=== PATIENT | female | born 1970 | race Caucasian/White ===

== ENCOUNTER 2019-08-06 14:30 | Emergency (ER) | payer MEDICAID, SELFPAY ==
[2019-08-06 14:41] VITALS: BP 110/73; PULSE 99; RESP 16; TEMP 37; O2SAT 93
--- NOTE | 2019-08-06 14:53 | ED.SKABFB ---
HPI - Skin/Abscess/Foreign Bdy General Chief complaint: Skin/Abscess/Foreign Body Stated complaint: Rash Time Seen by Provider: 08/06/19 14:54 Source: patient and RN notes reviewed Mode of arrival: ambulatory Limitations: no limitations History of Present Illness HPI narrative: 49-year-old female presents with concern for blisters on her left upper arm, and several red bumps on her left forearm.. She reports she noticed the blisters today, they are tender to touch. She reports she started taking Augmentin 3 days ago for sinus infection. Reports she is taking Augmentin in the past with no problems. She denies any oral lesions, any nausea, vomiting, diarrhea. MD complaint: rash Related Data Home Medications Medication Instructions Recorded Confirmed albuterol sulfate 1 inh INHALATION QID 08/06/19 08/06/19 amlodipine [Norvasc] 5 mg PO DAILY 08/06/19 08/06/19 budesonide-formoterol [Symbicort] 2 puff INHALATION Q12H 08/06/19 08/06/19 cetirizine [Zyrtec] 10 mg PO DAILY 08/06/19 08/06/19 montelukast [Singulair] 10 mg PO DAILY 08/06/19 08/06/19 tiotropium bromide [Spiriva 2 puff INHALATION DAILY 08/06/19 08/06/19 Respimat] umeclidinium [Incruse Ellipta] 1 inh INHALATION DAILY 08/06/19 08/06/19 Allergies Allergy/AdvReac Type Severity Reaction Status Date / Time METALS Allergy Unknown Rash Uncoded 08/06/19 14:47 Review of Systems Review of Systems: Narrative: CONSTITUTIONAL: Denies malaise, chills, sweats, or fever. EYES: Denies visual changes, redness, or discharge. ENT: Reports rhinorrhea, congestion. Denies sinus pain, otalgia or sore throat. Denies oral lesions CARDIOVASCULAR: Denies chest pain, palpitations, or edema. RESPIRATORY: Denies cough or dyspnea. GASTROINTESTINAL: Denies abdominal pain, nausea, vomiting, diarrhea SKIN: Reports itchy blisters on left upper arm, red bumps on left lower arm MUSCULOSKELETAL: Denies myalgia. NEUROLOGIC: Denies headache. All systems reviewed & are unremarkable except as noted in HPI and below PMFSH Past Medical History Medical History Asthma Fibromyalgia GERD (gastroesophageal reflux disease) Tendonitis Social History Social History Smoking status: Never smoker Gender identity (if verbalized by the patient): Female Comments At time of signature, agree with nursing past medical, surgical, social and family history. There is no relevant family history pertinent to the presenting complaint Exam Narrative: Exam Narrative: GENERAL: Well-appearing, well-nourished, and in no acute distress. HEAD: Normocephalic EYES: PERRLA, conjunctivae clear ENT: Nares clear, turbinates erythematous with clear discharge. Mucous membranes moist. TM pearly dial with dull light reflex bilaterally; no tragal tenderness. Oropharynx without erythema or lesions. Tonsils not enlarged and without exudate. NECK: Supple. No lymphadenopathy. CHEST: No respiratory distress. Clear to auscultation. No bony deformities, no asymmetry. Speaks in full sentences. HEART: Regular rate and rhythm. No murmur heard. N SKIN: Warm, dry, no rash. Patch of vesicles with clear fluid noted to left upper arm approximately 8-9 vesicles noted, each vesicle is surrounded by very small amount of erythema. No erythema, induration, plaque noted between vesicles. 4 erythematous papules noted to left lower arm. NEURO: Alert and oriented x3. PSYCH: Normal mood and affect Course Course Emergency Course: Patient is aware of diagnosis, understands and agrees to treatment plan. Anticipatory guidance given. Patient agrees to follow-up as directed and is aware of reasons to seek care at the emergency department. Portions of this record may have been created with voice recognition software Vital Signs Vital signs: Vital Signs Temperature 98.6 F 08/06/19 14:41 Pulse Rate 99 08/06/19 14:41 Respiratory Rate 16 0
== END 2019-08-06 15:10 | disposition home or self-care (01) ==
PROVIDERS: Emergency Provider Nurse Practitioner
DX: R21 Rash and other nonspecific skin eruption (principal)
CPT/HCPCS: 99213; G0463

== ENCOUNTER 2020-01-24 09:24 | Emergency (ER) | payer OTHER, SELFPAY ==
--- NOTE | 2020-01-24 09:28 | ED.URI ---
HPI - URI/Sore Throat General Chief Complaint: Upper Respiratory Infection Stated Complaint: ear/nose/throat Time Seen by Provider: 01/24/20 09:32 Source: patient and RN notes reviewed History of Present Illness HPI Narrative: Patient is a 50-year-old female who presents the urgent care with complaints of severe headache, sinus pressure, congestion, runny nose. Patient denies of any known fever, nausea, vomiting. States that she has had to use your inhaler more frequently but currently denies of any wheezing or shortness of breath. Denies of chest pain. Patient states that her symptoms have been ongoing for approximately 3 weeks with a few intermittent days of feeling slightly better after the use of Sudafed. Patient states that she does have a chronic sinusitis which typically clears up with [id number] medication. No other acute complaints. No acute distress noted. Patient read the plan of care. Related Data Home Medications Medication Instructions Recorded Confirmed albuterol sulfate 1 inh INHALATION QID 08/06/19 08/06/19 amlodipine [Norvasc] 5 mg PO DAILY 08/06/19 08/06/19 budesonide-formoterol [Symbicort] 2 puff INHALATION Q12H 08/06/19 08/06/19 cetirizine [Zyrtec] 10 mg PO DAILY 08/06/19 08/06/19 montelukast [Singulair] 10 mg PO DAILY 08/06/19 08/06/19 tiotropium bromide [Spiriva 2 puff INHALATION DAILY 08/06/19 08/06/19 Respimat] umeclidinium [Incruse Ellipta] 1 inh INHALATION DAILY 08/06/19 08/06/19 Allergies Allergy/AdvReac Type Severity Reaction Status Date / Time METALS Allergy Unknown Rash Uncoded 01/24/20 09:39 Review of Systems Review of Systems: Narrative: CONSTITUTIONAL: Denies fever, chills, or sweats. EYES: Denies visual changes, redness, or discharge. ENT: Reports of rhinorrhea, congestion, sinus pressure CARDIOVASCULAR: Denies chest pain, palpitations, or edema. RESPIRATORY: Denies cough or dyspnea. GASTROINTESTINAL: Denies abdominal pain, nausea, vomiting, or diarrhea. GENITOURINARY: Denies dysuria or hematuria. SKIN: Denies rash or itching. MUSCULOSKELETAL: Denies back pain, joint pain, or myalgia. NEUROLOGIC: Reports of headache All other systems reviewed are negative, except as documented in HPI. PMFSH Social History Social History Smoking status: Never smoker Gender identity (if verbalized by the patient): Female Comments At the time of my signature, I reviewed and agree with the nursing past medical, surgical, social, and family history. There is no relevant family history pertinent to the patient complaint. Exam Narrative: Exam Narrative: GENERAL: This is a well-nourished, well-developed patient, in no apparent distress. HEAD: normocephalic, atraumatic. Moderate frontal sinus pressure EYES: PERRL. Sclera clear/white. Vision is grossly intact. Mild bilateral injected conjunctivea EARS: External ears normal, auditory canals clear and without drainage, TMs normal without perforation. Hearing grossly intact. NOSE: External nose normal with no obvious nasal discharge, nares with mild erythema, clear rhinorrhea. THROAT: Mucous membranes moist, mild erythema noted to posterior oropharynx, moderate postnasal drainage NECK: Neck supple CARDIOVASCULAR: Regular rate and rhythm without murmurs, gallops, or rubs. RESPIRATORY: Clear to auscultation. Breath sounds equal bilaterally. No wheezes, rales, or rhonchi. SKIN: warm, intact with no suspicious lesions or rash, good texture and turgor. NEURO: awake, alert, and oriented to person, place and time. There were no obvious focal neurologic abnormalities. EXTREMITIES: No clubbing, cyanosis, or edema. Course Vital Signs Vital signs: Vital Signs Temperature 98.4 F 01/24/20 09:36 Pulse Rate 95 01/24/20 09:36 Respiratory Rate 18 01/24/20 09:36 Blood Pressure 119/75 01/24/20 09:36 Pulse Oximetry 92 01/24/20 09:36 Temperature 98.4 F 01/24/20 09:36 Pulse Rate 95 07
[2020-01-24 09:36] VITALS: BP 119/75; PULSE 95; RESP 18; TEMP 36.9; O2SAT 92
== END 2020-01-24 09:45 | disposition home or self-care (01) ==
PROVIDERS: Emergency Provider Nurse Practitioner Family
DX: J45.909 Unspecified asthma, uncomplicated (principal); J32.9 Chronic sinusitis, unspecified
CPT/HCPCS: 99213; G0463

== ENCOUNTER 2020-02-07 16:39 | Emergency (ER) | payer OTHER, SELFPAY ==
--- NOTE | ~2020-02-07 | XR_ITS ---
EXAMINATION: XR chest 2V EXAM DATE: 02/07/2020 17:51 INDICATION: Fever and shortness of breath. TECHNIQUE: Frontal and lateral projections of the chest obtained and reviewed. Comparison is made to prior examination from 07/03/2019. FINDINGS: The lungs are clear. There are no pleural effusions. The cardiomediastinal silhouette is within normal limits. There is no pneumothorax suspected. There are old bilateral rib fractures. IMPRESSION: No acute cardiopulmonary findings. Reviewed, dictated and finalized at location A.
[2020-02-07 17:05] VITALS: BP 134/83; PULSE 103; RESP 20; TEMP 37.9; O2SAT 93
--- NOTE | 2020-02-07 17:36 | ED.GENADULT ---
HPI - General Adult General Chief complaint: Urogenital-Female Stated complaint: yeast infection Time Seen by Provider: 02/07/20 17:36 Source: patient and RN notes reviewed Mode of arrival: ambulatory Limitations: no limitations History of Present Illness HPI narrative: 50-year-old female presents with vaginal irritation after taking antibiotic (Doxycycline) for 2-3 days. No treatment. History of yeast infection when taking antibiotics. No significant pelvic pain. No dysuria. Denies fever or chills. No concerns for STDs. No history of STDs. No new partners. Sexually active with only. No new partner. Denies multiple partners. Does not douche. Exacerbating factors consist of taking antibiotics. Denies hematuria or vaginal bleeding. Denies being , LMP Uterine ablation.? No flank pain. Denies nausea, vomiting, and abdominal pain.? Tolerating liquids well.? Remains active. The patient reports she have not been diagnosed with COVID-19. The patient reports she is not waiting for the results of a COVID-19 lab test. The patient reports she do not have fever, chills, weakness, or fatigue. The patient reports she do not have a new or worsening cough or shortness of breath. Denies chest pain. The patient reports she do not have any rhinorrhea, congestion, sore throat, and diarrhea. Denies recent traveling. Denies concerns for COVID-19 or exposures been home with limited outdoor exposure except for essential household needs and return home. At this time, patient is not suspected of having COVID-19. Some parts of this dictation were generated by voice recognition software and may contain typographical and/or grammatical inaccuracies. Related Data Home Medications Medication Instructions Recorded Confirmed albuterol sulfate 1 inh INHALATION QID 08/06/19 02/07/20 amlodipine [Norvasc] 5 mg PO DAILY 08/06/19 02/07/20 budesonide-formoterol [Symbicort] 2 puff INHALATION Q12H 08/06/19 02/07/20 cetirizine [Zyrtec] 10 mg PO DAILY 08/06/19 02/07/20 montelukast [Singulair] 10 mg PO DAILY 08/06/19 02/07/20 tiotropium bromide [Spiriva 2 puff INHALATION DAILY 08/06/19 02/07/20 Respimat] Allergies Allergy/AdvReac Type Severity Reaction Status Date / Time METALS Allergy Unknown Rash Uncoded 02/07/20 17:11 Review of Systems Review of Systems: Narrative: CONSTITUTIONAL: Denies fever, chills, sweats. EYES: Denies visual changes, redness, discharge. ENT: Denies rhinorrhea, congestion, sore throat, otalgia. CARDIOVASCULAR: Denies chest pain, palpitations, edema. RESPIRATORY: Denies dyspnea, wheezing, cough. GASTROINTESTINAL: Denies abdominal pain, nausea, vomiting, diarrhea. GENITOURINARY: Denies hematuria, dysuria (burning, frequent, urgency). Complains of vaginal irritation, abnormal discharge. SKIN: Denies rash or itching. MUSCULOSKELETAL: Denies acute back pain, joint pain, or myalgia. NEUROLOGIC: Denies numbness or focal weakness. PSYCHIATRIC: Denies anxiety or depression. All systems reviewed & are unremarkable except as noted in HPI and below. [facility] Past Medical History Medical History (Updated 02/08/20 @ 00:00 by Indra Mckoy) Asthma Fibromyalgia GERD (gastroesophageal reflux disease) Tendonitis Surgical History Surgical History (Updated 02/11/20 @ 18:03 by TANA Villarreal) H/O section History of bilateral carpal tunnel release x2 History of endometrial ablation History of tubal ligation Family History Family History (Updated 02/07/20 @ 18:18 by TANA Villarreal) Father Hypertension Mother Alive and well Social History Social History (Updated 02/07/20 @ 18:20 by TANA Villarreal) Smoking status: Never smoker Second hand tobacco smoke exposure: No Alcohol intake: never Substance use: never Living arrangements: with family Occupation/Education: unemployed Gender identity (if verbalized by the patient): Female Sexual Orientation (if Tristan
--- NOTE | 2020-02-07 18:01 | PC.NURSE ---
Pt c/o SOB and has wheezes noted pt presents with low grade temp. pt denies being exposed to COVID and states she stays to herself. Pt did not realize that she had a temp until presenting to express care today.
--- NOTE | 2020-02-07 18:03 | PC.NURSE ---
pts walking O2 sat was 88-90% pt states that she has had some respiratory complications over last 5 weeks and checks her 02 sat daily at home and has been maintaing 96% on RA.
--- NOTE | 2020-02-07 18:30 | PC.NURSE ---
pt completed neb tx o2Sat 91% pt able to talk in complete sentences and states she feels better.
[2020-02-07 18:36] VITALS: PULSE 102; RESP 24; O2SAT 91
== END 2020-02-07 18:36 | disposition home or self-care (01) ==
PROVIDERS: Emergency Provider Nurse Practitioner Family
DX: N76.0 Acute vaginitis (principal); J45.909 Unspecified asthma, uncomplicated
CPT/HCPCS: 71046; 96372; 99213; G0463; J1100

== ENCOUNTER 2020-03-24 18:24 | Emergency (ER) | payer OTHER, SELFPAY ==
--- NOTE | 2020-03-24 18:37 | ED.SOB ---
HPI - SOB/Dyspnea General Chief Complaint: Shortness of Breath/Dyspnea Stated Complaint: sob Time Seen by Provider: 03/24/20 18:38 Source: patient and RN notes reviewed Mode of arrival: ambulatory Limitations: no limitations History of Present Illness HPI Narrative: 50-year-old female with history of asthma presents with concerns for wheezing and shortness of breath. Reports she was on her way home from work and she felt short of breath so came to this clinic. Reports she is tried her at home remedies with no relief. She reports chronic sinus infection, drainage. She denies fever, malaise. MD elicited complaint: shortness of breath Related Data Home Medications Medication Instructions Recorded Confirmed albuterol sulfate 1 inh INHALATION QID 08/06/19 03/24/20 amlodipine [Norvasc] 5 mg PO DAILY 08/06/19 03/24/20 budesonide-formoterol [Symbicort] 2 puff INHALATION Q12H 08/06/19 03/24/20 cetirizine [Zyrtec] 10 mg PO DAILY 08/06/19 03/24/20 montelukast [Singulair] 10 mg PO DAILY 08/06/19 03/24/20 tiotropium bromide [Spiriva 2 puff INHALATION DAILY 08/06/19 03/24/20 Respimat] albuterol sulfate 2.5 mg CONTINUOUS NEBULIZATION 03/24/20 03/24/20 DIRECTED diclofenac sodium 75 mg PO DAILY 03/24/20 03/24/20 docusate sodium [DOK] 1 mg PO DAILY 03/24/20 03/24/20 duloxetine 60 mg PO DAILY 03/24/20 03/24/20 famotidine 20 mg PO DAILY 03/24/20 03/24/20 fluticasone propionate 50 mcg INTRANASAL DAILY 03/24/20 03/24/20 Allergies Allergy/AdvReac Type Severity Reaction Status Date / Time METALS Allergy Unknown Rash Uncoded 02/07/20 17:11 Review of Systems Review of Systems: Narrative: CONSTITUTIONAL: Denies malaise, chills, sweats, or fever. EYES: Denies visual changes, redness, or discharge. ENT: Reports rhinorrhea, congestion, sinus pain. Denies otalgia and sore throat. CARDIOVASCULAR: Denies chest pain, palpitations, or edema. RESPIRATORY: Reports cough, wheezing, dyspnea. GASTROINTESTINAL: Denies abdominal pain, nausea, vomiting, diarrhea SKIN: Denies rash or itching. MUSCULOSKELETAL: Denies myalgia. NEUROLOGIC: Denies headache. All systems reviewed & are unremarkable except as noted in HPI and below PMFSH Past Medical History Medical History (Updated 03/24/20 @ 19:22 by Kristyn Mcmullen NP) Asthma Fibromyalgia GERD (gastroesophageal reflux disease) Tendonitis Surgical History Surgical History (Updated 02/11/20 @ 18:03 by TANA Villarreal) H/O section History of bilateral carpal tunnel release x2 History of endometrial ablation History of tubal ligation Family History Family History (Updated 02/07/20 @ 18:18 by TANA Villarreal) Father Hypertension Mother Alive and well Social History Social History (Updated 02/07/20 @ 18:20 by TANA Villarreal) Smoking status: Never smoker Second hand tobacco smoke exposure: No Alcohol intake: never Substance use: never Gender identity (if verbalized by the patient): Female Comments At time of signature, agree with nursing past medical, surgical, social and family history. There is no relevant family history pertinent to the presenting complaint Exam Narrative: Exam Narrative: GENERAL: Well-appearing, well-nourished, and in no acute distress. HEAD: Normocephalic EYES: PERRLA, conjunctivae clear ENT: Nares clear, turbinates edematous and erythematous, clear discharge. Mucous membranes moist. TM pearly dial with dull light reflex bilaterally; no tragal tenderness. Oropharynx erythematous without lesions. Tonsils enlarged and without exudate, no drooling, no hoarseness, no trismus, uvula midline. NECK: Supple. No lymphadenopathy CHEST: Inspiratory and expiratory wheeze throughout, dyspnea, breath sounds equal. No rhonchi, rales, or stridor. Does not speak in full sentences. HEART: Regular rate and rhythm. No murmur heard. SKIN: Warm, dry, no rash. NEURO: Alert and oriented x3. PSYCH: Normal mood and affect Course Course
[2020-03-24 18:39] VITALS: BP 153/85; PULSE 103; RESP 20; TEMP 37.1; O2SAT 94
[2020-03-24] MEDS: methylPREDNISolone SOD SUCC 125 MG VIAL IM (18:50)
[2020-03-24] MEDS: IPRATROPIUM BR 0.02% INH SOLN 0.5 MG/2.5 ML VIAL INHALATION (18:50)
[2020-03-24] MEDS: ALBUTEROL SULFATE NEB 2.5 MG/3 ML INH INHALATION (18:50)
[2020-03-24 18:51] VITALS: PULSE 120; RESP 22; O2SAT 92
[2020-03-24 19:18] VITALS: PULSE 98; RESP 16; O2SAT 92
== END 2020-03-24 19:24 | disposition home or self-care (01) ==
PROVIDERS: Emergency Provider Nurse Practitioner
DX: J45.41 Moderate persistent asthma with (acute) exacerbation (principal); M79.7 Fibromyalgia; K21.9 Gastro-esophageal reflux disease without esophagitis
CPT/HCPCS: 94640; 96372; 99213; G0463; J2930

== ENCOUNTER 2020-04-14 06:15 | Emergency (ER) | payer OTHER, SELFPAY ==
--- NOTE | ~2020-04-14 | CT_ITS ---
EXAMINATION: CT BRAIN W/O DATE: 04/14/2020 07:53 INDICATION: Rhinosinusitis TECHNIQUE: Computed tomography (CT) of the head and sinuses was performed without intravenous contras t. The dose-length product was 756.67 mGy-cm. The mA was adjusted according to patient size. Iterativ e reconstruction technique was employed. COMPARISON: No prior studies for comparison. FINDINGS: Normal brain parenchymal volume for age. Normal dial-white differentiation. No acute intrac ranial hemorrhage, infarction, mass or mass effect. No ventriculomegaly or midline shift. Midline sagittal images demonstrate a normal corpus callosum, c raniovertebral junction and sella turcica. Basilar cisterns are patent. There is mild mucosal thickening of the maxillary sinuses with mucoperiosteal reaction. Ostiomeatal u nits are patent. Leftward nasal septal deviation. Mastoids are pneumatized. IMPRESSION: 1. No acute intracranial abnormality. 2: Mild chronic maxillary sinusitis. Reviewed, dictated and finalized at location A.
[2020-04-14 06:18] VITALS: BP 155/129; PULSE 98; RESP 20; TEMP 36.3; O2SAT 95
[2020-04-14 07:30] VITALS: BP 126/83; PULSE 95; RESP 20; O2SAT 90
[2020-04-14 07:53] LABS: Basophils Percent Auto 0.3 % (0.2-1.2); Eosinophils Absolute Auto 0.1 K/mm3 (0-0.3); Eosinophils Percent Auto 1.7 % (0-4.4); Hematocrit 38.9 % (37.0-47.0); Hemoglobin 12.4 g/dL (12.0-15.0); Immature Granulocyte Absolute 0.03 K/mm3 (0.00-0.031); Immature Granulocyte Percent A 0.4 % (0-0.5); Lymphocytes Absolute Auto 1.09 K/mm3 (0.9-3.2); Mean Corpuscular HGB Conc 31.9 g/dl (32-36); Mean Corpuscular Hemoglobin 27.5 pg (26-34); Mean Corpuscular Volume 86.3 fl (80-100); Mean Platelet Volume 9.4 fl (7.4-10.4); Monocytes Absolute Auto 0.7 K/mm3 (0.1-0.6); Monocytes Percent Auto 9.5 % (2.6-8.5); Neutrophils Absolute Auto 5.8 K/mm3 (1.3-6.7); Neutrophils Percent Auto 74.1 % (45.5-73.1); Platelet Count Result 216 k/mm3 (150-375); Red Blood Count 4.51 M/mm3 (4.2-5.4); Red Cell Distribution Width 14.3 % (11.5-14.5); White Blood Count 7.8 K/mm3 (4.5-10.0)
[2020-04-14 08:03] LABS: Anion Gap 3 mmol/L (8-16); Blood Urea Nitrogen 10 mg/dL (7-17); Calcium 8.5 mg/dL (8.4-10.2); Carbon Dioxide 36 mmol/L (22-30); Chloride 99 mmol/L (98-107); Estimated CRCL calculation 156 ml/min; Estimated Glomerular Filt Rate > 60; Glucose 101 mg/dL (65-105); Potassium 4.2 mmol/L (3.4-5.0); Sodium 138 mmol/L (137-145)
--- NOTE | 2020-04-14 08:43 | ED.URI ---
HPI - URI/Sore Throat General Chief Complaint: Upper Respiratory Infection Stated Complaint: Shortness of breath Time Seen by Provider: 04/14/20 07:11 Source: patient Mode of arrival: ambulatory Limitations: no limitations History of Present Illness HPI Narrative: 50-year-old with a history of hypertension, asthma here with complaints of facial pain, headache for past 1 month. Patient she had headache last night and was unable to sleep on the bed because of pressure. Pt. states that she finished 2 rounds of antibiotic for sinusitis. She denies any fever or chills. MD elicited complaint: sinus pain Pertinent past history: sinusitis Onset (ago): week(s) (3) Consistency: constant Severity: moderate Exacerbating factors: nothing Relieving factors: nothing Associated symptoms: headache Related Data Home Medications Medication Instructions Recorded Confirmed albuterol sulfate 1 inh INHALATION QID 08/06/19 03/24/20 amlodipine [Norvasc] 5 mg PO DAILY 08/06/19 03/24/20 budesonide-formoterol [Symbicort] 2 puff INHALATION Q12H 08/06/19 03/24/20 cetirizine [Zyrtec] 10 mg PO DAILY 08/06/19 03/24/20 montelukast [Singulair] 10 mg PO DAILY 08/06/19 03/24/20 tiotropium bromide [Spiriva 2 puff INHALATION DAILY 08/06/19 03/24/20 Respimat] albuterol sulfate 2.5 mg CONTINUOUS NEBULIZATION 03/24/20 03/24/20 DIRECTED diclofenac sodium 75 mg PO DAILY 03/24/20 03/24/20 docusate sodium [DOK] 1 mg PO DAILY 03/24/20 03/24/20 duloxetine 60 mg PO DAILY 03/24/20 03/24/20 famotidine 20 mg PO DAILY 03/24/20 03/24/20 fluticasone propionate 50 mcg INTRANASAL DAILY 03/24/20 03/24/20 Allergies Allergy/AdvReac Type Severity Reaction Status Date / Time METALS Allergy Unknown Rash Uncoded 02/07/20 17:11 Review of Systems Review of Systems: All systems reviewed & are unremarkable except as noted in HPI and below Constitutional: Constitutional: Reports no additional constitutional complaints Eyes: Eyes: Reports no additional eye complaints ENT: Reports system reviewed and no additional complaints, except as documented Cardiovascular: Cardiovascular: Reports no additional cardiovascular complaints Respiratory: Respiratory: Reports as per HPI Musculoskeletal: Musculoskeletal: Reports no additional musculoskeletal complaints Neurologic: Reports system reviewed and no additional complaints, except as documented PMFSH Past Medical History Medical History Asthma Fibromyalgia GERD (gastroesophageal reflux disease) Tendonitis Surgical History Surgical History H/O section History of bilateral carpal tunnel release x2 History of endometrial ablation History of tubal ligation Family History Family History Father Hypertension Mother Alive and well Social History Social History Smoking status: Never smoker Second hand tobacco smoke exposure: No Alcohol intake: never Substance use: never Gender identity (if verbalized by the patient): Female Exam Narrative: Exam Narrative: GENERAL: Well-appearing, Obese, and in no acute distress. HEAD: Normocephalic, atraumatic. EYES: PERRLA and EOMI. ENT: Nares clear, no rhinorrhea or epistaxis. Mucous membranes moist. NECK: Supple. CHEST: Clear to auscultation. No respiratory distress. HEART: Regular rate and rhythm. No murmur heard. Normal peripheral pulses.. EXTREMITIES: Normal range of motion. No edema. SKIN: Warm, dry, no rash. NEURO: No focal deficits. Alert and oriented x3. PSYCH: Normal mood and affect. Course Reevaluation(s) Reevaluation #1: Inform patient about her lab work, CT findings. Advised her to take antibiotic as prescribed., See ENT in the next few days. Continue home medication. Vital Signs Vital signs: Vital Signs Temperature 36.3 C
[2020-04-14 09:00] VITALS: BP 127/86; PULSE 96; RESP 18; O2SAT 96
== END 2020-04-14 09:02 | disposition home or self-care (01) ==
PROVIDERS: Emergency Provider Family Medicine
DX: J32.0 Chronic maxillary sinusitis (principal); J45.909 Unspecified asthma, uncomplicated; I10 Essential (primary) hypertension; M79.7 Fibromyalgia; K21.9 Gastro-esophageal reflux disease without esophagitis
CPT/HCPCS: 36415; 70450; 70486; 80048; 85025; 99284

== ENCOUNTER 2020-05-18 14:05 | Inpatient (IN) | payer OTHER, SELFPAY ==
[2020-05-18] VITALS (8 sets, daily range): BP systolic 117–144; BP diastolic 66–92; PULSE 80–88; RESP 18–25; TEMP 36.8–36.9; O2SAT 76–96; BMI 57.2
--- NOTE | ~2020-05-18 | XR_ITS ---
EXAMINATION: XR chest 1V portable EXAM DATE: 05/18/2020 14:51 INDICATION: Cough, shortness of breath and fever. Patient under investigation for possible COVID-19. TECHNIQUE: Portable AP frontal chest x-ray was obtained. There is no prior study for comparison. FINDINGS: Possible small amount of ill-defined bibasilar acute airspace disease. No confluent consoli dation, pneumothorax or pleural effusion suspected. Cardiomediastinal silhouette is normal. Multiple old bilateral rib fractures. IMPRESSION: 1. Possible small amount of bibasilar groundglass opacities, infectious process. Reviewed, dictated and finalized at location A. [employer] IMPRESSION: 1. Possible small amount of bibasilar groundglass opacities, infectious proces s.
--- NOTE | ~2020-05-18 | CT_ITS ---
EXAMINATION: CTA chest PE protocol EXAM DATE: 05/18/2020 16:26 INDICATION: likely COVID, CXR not terrible, O2 sats 70s. TECHNIQUE: Spiral CTA of the chest (pulmonary arteries) was performed with 100 cc Omnipaque 350 intr avenous contrast injection. Images were acquired during the pulmonary arterial phase. Coronal maxi mum intensity projection 3D-reconstructions were created by the technologist on dedicated workstation . Axial, coronal and sagittal reformatted images were reviewed. The dose-length product (DLP) for t his examination was 1083.96 mGy-cm. The exposure was tailored according to patient size (auto mA ex posure control), and iterative reconstruction (ASIR) was used as additional dose reduction technique. Correlation is made to chest x-ray same date. FINDINGS: There are no pulmonary emboli in the 1st through 3rd order (central and interlobar) pulmon amy arteries. Some loss of attenuation in the basilar segmental pulmonary arteries due to respirator y motion, but no intraluminal filling defects suspected. No thoracic aortic dissection. Bilateral small patchy peripheral predominant groundglass opacities Appearance is typical of early s tage COVID 19, acute lung injury. Less likely acute possibilities include influenza, pulmonary edema or hemorrhage. Some chronic processes that can have this appearance include cryptogenic organizing p neumonia, desquamative interstitial pneumonia, nonspecific interstitial pneumonia, drug toxicity, con nective tissue disease. Please clinically correlate and test as appropriate. There are no pleural or pericardial effusions. Tracheobronchial tree is patent. There is no media stinal, hilar or axillary lymphadenopathy. There is no pneumothorax. Heart normal in size. No e vidence of coronary arterial calcification. Upper abdomen is unremarkable. Old rib fractures. IMPRESSION: 1. Limited segmental evaluation, but no pulmonary emboli are suspected. 2. Patchy bilateral airspace disease suspicious for COVID-19 pneumonia. Clinical correlation. Reviewed, dictated and finalized at location A. [employer] IMPRESSION: 1. Limited segmental evaluation, but no pulmonary emboli are suspected. 2. Patchy bilateral airspace disease suspicious for COVID-19 pneumonia. Clinic al correlation.
--- NOTE | 2020-05-18 14:25 | ED.SOB ---
HPI - SOB/Dyspnea General Chief Complaint: Shortness of Breath/Dyspnea Stated Complaint: shortness of breath Time Seen by Provider: 05/18/20 14:25 Source: patient Mode of arrival: ambulatory Limitations: no limitations History of Present Illness HPI Narrative: Patient is a 50-year-old female with a history of asthma who presents for evaluation of a 3-week history of intermittently worsening shortness of breath. Patient states that she was never swabbed for Covid, but had been placed on a steroid pack by urgent care. Patient reports she has a history of loss of sense of taste and smell, dry cough, and is denying any chest pain. She is reporting intermittent fevers over the past 2 weeks. Patient states that when she was seen in the urgent care oxygen saturation ranged from 88 to 92%. Patient states her shortness of breath worsened today, thus seeking care in the emergency department. Patient oxygen level 76% on room air at the time of initial assessment. Related Data Home Medications Medication Instructions Recorded Confirmed amlodipine [Norvasc] 5 mg PO DAILY 08/06/19 03/24/20 budesonide-formoterol [Symbicort] 2 puff INHALATION Q12H 08/06/19 03/24/20 cetirizine [Zyrtec] 10 mg PO DAILY 08/06/19 03/24/20 montelukast [Singulair] 10 mg PO DAILY 08/06/19 03/24/20 tiotropium bromide [Spiriva 2 puff INHALATION DAILY 08/06/19 03/24/20 Respimat] albuterol sulfate 2.5 mg CONTINUOUS NEBULIZATION 03/24/20 03/24/20 DIRECTED diclofenac sodium 75 mg PO DAILY 03/24/20 03/24/20 docusate sodium [DOK] 1 mg PO DAILY 03/24/20 03/24/20 duloxetine 60 mg PO DAILY 03/24/20 03/24/20 famotidine 20 mg PO DAILY 03/24/20 03/24/20 fluticasone propionate 50 mcg INTRANASAL DAILY 03/24/20 03/24/20 Allergies Allergy/AdvReac Type Severity Reaction Status Date / Time METALS Allergy Unknown Rash Uncoded 05/18/20 14:27 Review of Systems Review of Systems: Narrative: CONSTITUTIONAL: Reporting fever and chills EYES: Denies visual changes, redness, or discharge. ENT: Reporting rhinorrhea and congestion CARDIOVASCULAR: Denies chest pain, palpitations, or edema. RESPIRATORY: Reporting dry cough and shortness of breath GASTROINTESTINAL: Denies abdominal pain, nausea, vomiting, or diarrhea. GENITOURINARY: Denies dysuria or hematuria. SKIN: Denies rash or itching. MUSCULOSKELETAL: Denies back pain, joint pain, or myalgia. NEUROLOGIC: Denies headache, numbness, or weakness. [facility] Past Medical History Medical History Asthma Fibromyalgia GERD (gastroesophageal reflux disease) Tendonitis Surgical History Surgical History H/O section History of bilateral carpal tunnel release x2 History of endometrial ablation History of tubal ligation Family History Family History Father Hypertension Mother Alive and well Social History Social History Smoking status: Never smoker Second hand tobacco smoke exposure: No Alcohol intake: never Substance use: never Gender identity (if verbalized by the patient): Female Exam Narrative: Exam Narrative: GENERAL: Awake, alert, able to converse in short sentences HEAD: Normocephalic, atraumatic. EYES: PERRLA and EOMI. ENT: Nares clear, no rhinorrhea or epistaxis. Mucous membranes moist. NECK: Supple. CHEST: Tachypneic, hypoxic on room air, no audible wheezing HEART: Regular rate, sinus rhythm ABDOMEN: Obese, Non distended, non tender EXTREMITIES: Normal range of motion. No edema. SKIN: Warm, dry, no rash. NEURO:No focal deficits. Alert and oriented x3 Course Vital Signs Vital signs: Vital Signs Temperature 36.9 C 05/18/20 14:22 Pulse Rate 82 05/18/20 14:22 Respiratory Rate 25 H 05/18/20 14:22 Blood Pressure 144/89 H 05/18/20 14:22 Pulse Oximetry 76 L 05/18/20
--- NOTE | 2020-05-18 14:40 | ECG_ITS ---
Measurements Intervals [place] Rate: 81 P: 71 AK: 137 QRS: 40 QRSD: 104 T: 52 QT: 369 QTc: 429 Interpretive Statements SINUS RHYTHM BASELINE WANDER- I, II, AVR, AVL, AVF, V1-V6 NORMAL ECG Electronically Signed On 05-18-2020 17:20:40 RIGGER CHIEF by Denis Moody D.O.
[2020-05-18 14:56] LABS: Basophils Percent Auto 0.3 % (0.2-1.2); Eosinophils Absolute Auto 0.2 K/mm3 (0-0.3); Eosinophils Percent Auto 2.6 % (0-4.4); Hematocrit 39.6 % (37.0-47.0); Hemoglobin 12.8 g/dL (12.0-15.0); Immature Granulocyte Absolute 0.01 K/mm3 (0.00-0.031); Immature Granulocyte Percent A 0.2 % (0-0.5); Lymphocytes Absolute Auto 1.08 K/mm3 (0.9-3.2); Lymphocytes Percent Auto 16.8 % (18.3-44.2); Mean Corpuscular HGB Conc 32.3 g/dl (32-36); Mean Corpuscular Hemoglobin 27.5 pg (26-34); Mean Platelet Volume 8.9 fl (7.4-10.4); Monocytes Absolute Auto 0.6 K/mm3 (0.1-0.6); Monocytes Percent Auto 8.6 % (2.6-8.5); Neutrophils Absolute Auto 4.6 K/mm3 (1.3-6.7); Neutrophils Percent Auto 71.5 % (45.5-73.1); Platelet Count Result 220 k/mm3 (150-375); Red Blood Count 4.66 M/mm3 (4.2-5.4); Red Cell Distribution Width 13.7 % (11.5-14.5); White Blood Count 6.4 K/mm3 (4.5-10.0)
[2020-05-18] MEDS: SODIUM CHLORIDE 0.9% IV 500 ML 999 ML IV CONT (15:00)
[2020-05-18 15:01] LABS: INR 0.9; Prothrombin Time 12.9 Seconds (11.1-14.7)
[2020-05-18 15:02] LABS: Partial Thromboplastin Time 26.7 SECONDS (22.3-36.8)
[2020-05-18 15:04] LABS: Lactic Acid Reflex 0.6 mmol/L (0.7-2.1)
[2020-05-18 15:05] LABS: Alveolar/Arterial O2 Gradient 93.6 mmHg; Base Excess ABG 7.1 mEq/l (+/-2.0); Carboxyhemoglobin 1.1 % THb (0-2.0); Fractional Inspired Oxygen 32 %; HCO3 ABG 34.7 mEq/l (22.0-26.0); Methemoglobin ABG 0.3 %THb (0-1.5); Oxygen Content ABG 16.7 %vol (16.0-22.0); Oxygen Saturation ABG 89.5 % (95.0-100.0); Oxyhemoglobin 88.5 % THb (90.0-100.0); PO2 ABG 60.6 mmHg (80.0-100.0); PO2 FiO2 Ratio Arterial Blood 1.89 %; Reduced Hemoglobin 10.1 %THb (0-5.0); Total Hemoglobin 13.4 g/dL (12.0-18.0); pH ABG 7.357 (7.350-7.450)
[2020-05-18 15:07] LABS: Alanine Aminotransferase 20 U/L (4-35); Albumin Level 3.7 g/dL (3.5-5.1); Alkaline Phosphatase 131 U/L (38-126); Anion Gap 4 mmol/L (8-16); Aspartate Amino Transferase 24 U/L (14-36); Bilirubin,Total 0.6 mg/dL (0.2-1.3); Blood Urea Nitrogen 12 mg/dL (7-17); CRP 2.4 mg/dL (<1.0); Calcium 8.6 mg/dL (8.4-10.2); Carbon Dioxide 37 mmol/L (22-30); Chloride 97 mmol/L (98-107); Estimated CRCL calculation 139 ml/min; Estimated Glomerular Filt Rate > 60; Glucose 111 mg/dL (65-105); Lactate Dehydrogenase 471 U/L (313-618); Potassium 4.1 mmol/L (3.4-5.0); Sodium 138 mmol/L (137-145)
[2020-05-18 15:07] LABS: Device NASAL CANNULA; Modified Allen's Test Pass; PCO2 ABG 63.2 mmHg (35.0-45.0); Site Drawn RIGHT RADIAL
[2020-05-18 15:17] LABS: NT Pro B Type Natriuretic Pept 110 PG/ML (5-100); Troponin I < 0.012 ng/mL (0.000-0.034)
--- NOTE | 2020-05-18 16:00 | PM.IMHP ---
H&P: HPI History of Present Illness Date/Time: 05/18/20 16:45 Chief complaint: Respiratory failure/Pneumonia Narrative: Angie Leos is a pleasant 50-year-old female with asthma, chronic rhinosinusitis, seasonal allergies, and hypertension who presented to the emergency department earlier today from home for evaluation of shortness of breath and fevers. It sounds as though she has been having issues off and on with her asthma for the last several months, and in fact it is noted that she was seen either at urgent care or in the emergency department each month since February 2020 with respiratory complaints. Most recently she was seen on 04/14/2020 at which time she was diagnosed with sinusitis and discharged on levofloxacin. It sounds like somewhere around that time she was also started on a pretty lengthy prednisone taper which she completed within the last week or so. It just so happens that she had a routine appointment with her recruiter coordinator in [place] about a week and half ago and she has several upcoming pulmonary function tests and lab work to do for further evaluation of her respiratory condition. In any regard, she felt may be a bit better for the 1st 4 days of that taper, but really has not balanced back and unfortunately she continues to have shortness of breath with wheezing and a cough that is productive of thick yellowish sputum in addition to sinus congestion. She believe she has been running and intermittent low-grade fever as well as suffering from sweats. Today she had some nausea and she has also noticed a mild decrease in sense of smell and taste. She has been using her inhalers at home with lesser and lesser benefit and she also notes that she ran out of her nebulizer vials within the past several days. No chest pain or pleuritic pain. She has no known positive COVID contacts. No significant otalgia or odynophagia. Review of Systems Review of Systems: Narrative: Twelve systems were reviewed with pertinent positives and negatives as per HPI. Some nausea but no vomiting. No diarrhea. No dysuria. She denies orthopnea, PND, and lower extremity edema. She does not use a CPAP and was told that she no longer needed to use it after a repeat sleep study within the last year so. Except as documented, all other systems were reviewed and are negative. [facility] Past Medical History Medical History (Updated 05/18/20 @ 19:25 by Ines Bertrand PA-C) Anxiety Asthma Chronic sinusitis Fibromyalgia Gastroesophageal reflux disease Hypertension Morbid obesity Obstructive sleep apnea Patient reports that her most recent sleep study showed no indication for CPAP. Tendonitis Surgical History Surgical History (Updated 05/18/20 @ 19:21 by Ines Bertrand PA-C) History of bilateral carpal tunnel release x2 History of cervical spinal surgery History of section History of endometrial ablation History of sinus surgery History of tubal ligation (~2009) Anterior ethmoid and maxillary antrostomy. Family History Family History (Updated 05/18/20 @ 19:21 by Ines Bertrand PA-C) Father Hypertension Colon cancer Mother Alive and well Colon cancer Breast cancer Sibling Colon cancer Social History Social History (Updated 05/19/20 @ 00:21 by Ines Bertrand PA-C) Social History: Surrogate decision maker: Bisi Pardo Kin, mother. Code status: Full code. Smoking status: Never smoker Second hand tobacco smoke exposure: No Alcohol intake: never Substance use: never Substance use type: does not use Additional living arrangements comments: Lives in [place] with a friend. 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 Gender identity (if verbalized by the patient): Female Sexual Orientation (if Verbalized by the Patient): Straight or Heterosexual Spiritual care concerns: No Meds Home Medications and Allergies Home Medications Med
--- NOTE | 2020-05-18 19:14 | PC.NURSE ---
This patient, Angie Leos, was admitted to 3 Med Surg Room 310-01. Patient/family oriented to hospital policies and general routines including ID bracelet, bed and alarms, visiting hours, pain management, procedures, bathroom and other care routines, personal items, smoking policy, room service/diet, and visiting hours. Information on how to activate the Rapid Response Team has been discussed. Patient/Family are encouraged to report perceived risks to care and to ask questions if they do not understand what they are told or what they should do.
[2020-05-18] MEDS: ENOXAPARIN 30 MG/0.3 ML SYRINGE SUB-Q (21:53)
[2020-05-18] MEDS: ALBUTEROL SULFATE (*SP) AEROSOL 1 PUFF 4 PUFF INHALATION (22:03)
[2020-05-18] MEDS: BUDESONIDE/FORMOTEROL (*SP) 160-4.5 MCG 6 GM INH 2 PUFF INHALATION (22:03)
[2020-05-19] VITALS (9 sets, daily range): BP systolic 128–139; BP diastolic 62–71; PULSE 80–102; RESP 20–22; TEMP 36.3–36.8; O2SAT 90–92
[2020-05-19 01:50] LABS: SARS-CoV-2 RNA PCR Negative
[2020-05-19] MEDS: methylPREDNISolone SOD SUCC 125 MG VIAL 60 MG IV PUSH ×3 (05:24→17:06)
[2020-05-19 06:43] LABS: Basophils Percent Auto 0.2 % (0.2-1.2); Hematocrit 40.5 % (37.0-47.0); Hemoglobin 12.7 g/dL (12.0-15.0); Immature Granulocyte Absolute 0.02 K/mm3 (0.00-0.031); Immature Granulocyte Percent A 0.3 % (0-0.5); Lymphocytes Absolute Auto 0.74 K/mm3 (0.9-3.2); Lymphocytes Percent Auto 12.2 % (18.3-44.2); Mean Corpuscular HGB Conc 31.4 g/dl (32-36); Mean Corpuscular Hemoglobin 26.8 pg (26-34); Mean Corpuscular Volume 85.4 fl (80-100); Mean Platelet Volume 8.9 fl (7.4-10.4); Monocytes Absolute Auto 0.3 K/mm3 (0.1-0.6); Monocytes Percent Auto 4.8 % (2.6-8.5); Neutrophils Percent Auto 82.5 % (45.5-73.1); Platelet Count Result 266 k/mm3 (150-375); Red Blood Count 4.74 M/mm3 (4.2-5.4); Red Cell Distribution Width 13.5 % (11.5-14.5); White Blood Count 6.1 K/mm3 (4.5-10.0)
[2020-05-19 07:14] LABS: Alanine Aminotransferase 19 U/L (4-35); Albumin Level 3.7 g/dL (3.5-5.1); Alkaline Phosphatase 117 U/L (38-126); Anion Gap 2.99999 mmol/L (8-16); Aspartate Amino Transferase 20 U/L (14-36); Bilirubin,Total 0.4 mg/dL (0.2-1.3); Blood Urea Nitrogen 11 mg/dL (7-17); CRP 2.7 mg/dL (<1.0); Calcium 8.7 mg/dL (8.4-10.2); Carbon Dioxide > 40 mmol/L (22-30); Chloride 96 mmol/L (98-107); Estimated CRCL calculation 120 ml/min; Estimated Glomerular Filt Rate > 60; Glucose 119 mg/dL (65-105); Lactate Dehydrogenase 390 U/L (313-618); Potassium 4.7 mmol/L (3.4-5.0); Sodium 139 mmol/L (137-145)
[2020-05-19] MEDS: ENOXAPARIN 30 MG/0.3 ML SYRINGE SUB-Q ×2 (08:28→19:38)
[2020-05-19] MEDS: BUDESONIDE/FORMOTEROL (*SP) 160-4.5 MCG 6 GM INH 2 PUFF INHALATION ×2 (08:33→21:55)
[2020-05-19] MEDS: ALBUTEROL SULFATE (*SP) AEROSOL 1 PUFF 4 PUFF INHALATION ×2 (08:33→11:35)
--- NOTE | 2020-05-19 14:48 | PM.IMPN ---
Progress Note: A&P Assessment and Plan (1) Acute respiratory failure: Code(s): J96.00 - Acute respiratory failure, unspecified whether with hypoxia or hypercapnia Status: Acute Assessment and Plan: Hypoxic upon presentation at 76%. [place] to be secondary to community-acquired pneumonia in conjunction with asthma. CTA negative for pulmonary embolism. Currently requiring 2 L supplemental O2 to maintain adequate oxygen saturations. Supplemental O2 as needed with goal saturation 90% or above. Wean to goal. She did not tolerate weaning down to 1 L today and will continue 2L at this time. Continue treatment for pneumonia and asthma as detailed below. (2) Community acquired pneumonia: Code(s): J18.9 - Pneumonia, unspecified organism Status: Acute Assessment and Plan: CXR showed possible bibasilar groundglass opacities of infectious process. COVID-19 negative. Requiring 2 L O2 as noted above. She is afebrile. No leukocytosis. Continue azithromycin and Rocephin IV, started on 05/19/2020. Urine pneumococcal and Legionella antigen are pending Supportive care including antipyretics, bronchodilators, and expectorants. Check influenza (3) Asthma exacerbation: Code(s): J45.901 - Unspecified asthma with (acute) exacerbation Status: Acute Assessment and Plan: Patient is established with clinical scientist Dr. Barry at [facility]. She had just completed a lengthy prednisone taper about 1 week ago with not much improvement. She reports wheezing. Continue IV solu-medrol Begin nebulized albuterol treatments Continue symbicort Continue home regimen of singulair, spiriva, and fluticasone (4) Hypertension: Code(s): I10 - Essential (primary) hypertension Status: Inactive Assessment and Plan: Blood pressure reviewed today and is stable at 137/64 continue amlodipine (5) COVID-19 ruled out by laboratory testing: Code(s): Z03.818 - Encounter for observation for suspected exposure to other biological agents ruled out Status: Acute Assessment and Plan: Patient tested negative for COVID-19 on 05/18/2020. Isolation precautions discontinued. Subjective Date/time seen: 05/19/20 14:48 Interval history: date of service: 05/19/2020 Angie Leos is a 50 year old female with a history of asthma and HTN who is seen in follow up for community acquired pneumonia. She is feeling better at this time. She reports that her shortness of breath has improved significantly. She denies cough or sputum production. She denies wheezing, orthopnea, or PND. She does report THOMPSON. She denies fever, chills, nausea, vomiting. She feels a bit lightheaded with activity. She has been eating well. She denies urinary symptoms. She has been having regular bowel movements. She denies chest pain or palpitations. Review of Systems Review of Systems: All systems reviewed & are unremarkable except as noted in HPI and below Exam Narrative: Exam Narrative: Ms. Leos is an obese 50-year-old female who is lying supine in bed. She appears comfortable and is in NARD. HR 80, BP 137/64, RR 20, T 97.4?, 92% on 2 L Neuro: awake, alert and oriented x4, speech clear, no focal neuro deficits noted HEENMT: normocephalic, atraumatic, EOMI, sclerae anicteric, moist oral mucosa, tongue midline, nares patent Neck: supple, no lymphadenopathy Respiratory: course breath sounds posteriorly, faint inspiratory wheezes, nonlabored breathing Cardio: regular rate, regular rhythm with S1-S2 Abdomen: nondistended, normoactive bowel sounds, soft, nontender to palpation, no rigidity or guarding Extremities: no edema, erythema, cyanosis, clubbing, or tenderness to palpation, DP pulses 2+ bilaterally Skin: no rashes or lesions, warm and dry Psych: appropriate mood and affect, judgment and insight intact Objective Data Vital Signs Vital Signs: Vital Signs - 24 hr 05/18/20 1
[2020-05-19] MEDS: MONTELUKAST SODIUM 10 MG TABLET PO (19:40)
[2020-05-19] MEDS: guaiFENesin 12 HR 600 MG TABCR PO (20:11)
[2020-05-19] MEDS: ALBUTEROL SULFATE NEB 2.5 MG/0.5 ML INH INHALATION (21:55)
[2020-05-20] VITALS (10 sets, daily range): BP systolic 133–159; BP diastolic 71–94; PULSE 75–104; RESP 18–26; TEMP 36.4–36.8; O2SAT 90–95
[2020-05-20] MEDS: ALBUTEROL SULFATE NEB 2.5 MG/0.5 ML INH INHALATION ×3 (04:00→15:20)
[2020-05-20 07:15] LABS: Hematocrit 38.8 % (37.0-47.0); Hemoglobin 12.2 g/dL (12.0-15.0); Mean Corpuscular HGB Conc 31.4 g/dl (32-36); Mean Corpuscular Volume 85.8 fl (80-100); Mean Platelet Volume 8.8 fl (7.4-10.4); Platelet Count Result 273 k/mm3 (150-375); Red Blood Count 4.52 M/mm3 (4.2-5.4); Red Cell Distribution Width 13.7 % (11.5-14.5); White Blood Count 10.9 K/mm3 (4.5-10.0)
[2020-05-20 07:44] LABS: Anion Gap 2.99999 mmol/L (8-16); Blood Urea Nitrogen 17 mg/dL (7-17); CRP 1.3 mg/dL (<1.0); Calcium 8.6 mg/dL (8.4-10.2); Carbon Dioxide > 40 mmol/L (22-30); Chloride 96 mmol/L (98-107); Estimated CRCL calculation 120 ml/min; Estimated Glomerular Filt Rate > 60; Glucose 120 mg/dL (65-105); Lactate Dehydrogenase 389 U/L (313-618); Potassium 4.8 mmol/L (3.4-5.0); Sodium 139 mmol/L (137-145)
[2020-05-20] MEDS: methylPREDNISolone SOD SUCC 125 MG VIAL 60 MG IV PUSH ×4 (08:03→23:54)
[2020-05-20] MEDS: FAMOTIDINE 20 MG TABLET PO (08:04)
[2020-05-20] MEDS: ENOXAPARIN 30 MG/0.3 ML SYRINGE SUB-Q ×2 (08:04→20:42)
[2020-05-20] MEDS: LORATADINE 10 MG TABLET PO (08:04)
[2020-05-20] MEDS: DOCUSATE SODIUM 100 MG CAPSULE PO (08:04)
[2020-05-20] MEDS: FLUTICASONE PROPIONATE 0.05% NA SPR 16 GM BTL (*BKC) 1 SPRAY NASAL (08:05)
[2020-05-20] MEDS: guaiFENesin 12 HR 600 MG TABCR PO ×2 (08:05→20:43)
[2020-05-20] MEDS: BUDESONIDE/FORMOTEROL (*SP) 160-4.5 MCG 6 GM INH 2 PUFF INHALATION ×2 (09:37→20:44)
[2020-05-20] MEDS: amLODIPine BESYLATE 5 MG TABLET PO (09:54)
[2020-05-20] MEDS: DULoxetine HCL 60 MG CAPSULE.DR PO (09:55)
--- NOTE | 2020-05-20 11:40 | PM.IMPN ---
Progress Note: A&P Assessment and Plan (1) Acute respiratory failure: Code(s): J96.00 - Acute respiratory failure, unspecified whether with hypoxia or hypercapnia Status: Acute Assessment and Plan: Hypoxic upon presentation at 76%. [place] to be secondary to community-acquired pneumonia in conjunction with asthma. CTA negative for pulmonary embolism. Currently requiring 3 L supplemental O2 to maintain adequate oxygen saturations. Supplemental O2 as needed with goal saturation 90% or above. Wean to goal. Did not tolerate weaning trial yesterday. Continue treatment for pneumonia and asthma as detailed below. (2) Community acquired pneumonia: Code(s): J18.9 - Pneumonia, unspecified organism Status: Acute Assessment and Plan: CXR showed possible bibasilar groundglass opacities with infectious process. COVID-19 negative. Requiring 3 L O2 as noted above. She is afebrile. No leukocytosis. Continue azithromycin and Rocephin IV, started on 05/19/2020. Urine pneumococcal and Legionella antigen are pending. Blood cultures pending. Supportive care including antipyretics, bronchodilators, expectorants, and incentive spirometry. Influenza pending (3) Asthma exacerbation: Code(s): J45.901 - Unspecified asthma with (acute) exacerbation Status: Acute Assessment and Plan: Patient is established with ecosystem ecology professor Dr. Lopez at [facility]. She had just completed a lengthy prednisone taper about 1 week ago with not much improvement. Wheezing noted on auscultation. Continue IV solu-medrol Continue albuterol nebs Continue symbicort Continue home regimen of singulair, spiriva, and fluticasone (4) Hypertension: Code(s): I10 - Essential (primary) hypertension Status: Inactive Assessment and Plan: Blood pressure reviewed today and is stable at 135/71 continue amlodipine (5) COVID-19 ruled out by laboratory testing: Code(s): Z03.818 - Encounter for observation for suspected exposure to other biological agents ruled out Status: Acute Assessment and Plan: Patient tested negative for COVID-19 on 05/18/2020. Isolation precautions discontinued. Subjective Date/time seen: 05/20/20 11:40 Interval history: date of service: 05/20/2020 Angie Leos is a 50 year old female with a history of asthma and HTN who is seen in follow up for community acquired pneumonia and asthma exacerbation. She is feeling better today. She continues to endorse THOPMSON with minimal activity. She does believe that this is improving. She is having cough productive of faint yellow sputum. She endorses wheezing. Denies fever, chills, dizziness, lightheadedness, nausea, vomiting, chest pain, or palpitations. Appetite is good. She had a BM this morning. Denies urinary symptoms. She has no additional concerns at this time. Review of Systems Review of Systems: All systems reviewed & are unremarkable except as noted in HPI and below Exam Narrative: Exam Narrative: Ms. Leos is an obese 50-year-old female who is lying supine in bed. She appears comfortable and is in NARD. HR 82, BP 135/71, RR 20, T 97.8?, 95% on 3 L Neuro: awake, alert and oriented x4, speech clear, no focal neuro deficits noted HEENMT: normocephalic, atraumatic, EOMI, sclerae anicteric, moist oral mucosa, tongue midline, nares patent Neck: supple, no lymphadenopathy Respiratory: diminished breath sounds bilaterally, diffuse inspiratory wheezes, nonlabored breathing Cardio: regular rate, regular rhythm with S1-S2 Abdomen: nondistended, normoactive bowel sounds, soft, nontender to palpation, no rigidity or guarding Extremities: scant pedal edema, no erythema, cyanosis, clubbing, or tenderness to palpation, DP pulses 2+ bilaterally Skin: no rashes or lesions, warm and dry Psych: appropriate mood and affect, judgment and insight intact Objective Data Vital Signs Vital Signs: Vital Signs -
[2020-05-20] MEDS: ACETAMINOPHEN 325 MG TABLET 650 MG PO (16:01)
[2020-05-20] MEDS: MONTELUKAST SODIUM 10 MG TABLET PO (20:43)
[2020-05-20] MEDS: ALBUTEROL SULFATE NEB 2.5 MG/0.5 ML INH 5 MG INHALATION (20:44)
[2020-05-21] VITALS (12 sets, daily range): BP systolic 129–148; BP diastolic 72–78; PULSE 79–102; RESP 16–20; TEMP 36.6–36.9; O2SAT 91–98
[2020-05-21] MEDS: ALBUTEROL SULFATE NEB 2.5 MG/0.5 ML INH 5 MG INHALATION ×4 (01:22→20:52)
[2020-05-21] MEDS: methylPREDNISolone SOD SUCC 125 MG VIAL 60 MG IV PUSH ×3 (05:19→20:28)
[2020-05-21 06:17] LABS: Hematocrit 38.9 % (37.0-47.0); Hemoglobin 12.1 g/dL (12.0-15.0); Mean Corpuscular HGB Conc 31.1 g/dl (32-36); Mean Corpuscular Hemoglobin 26.5 pg (26-34); Mean Corpuscular Volume 85.1 fl (80-100); Mean Platelet Volume 8.8 fl (7.4-10.4); Platelet Count Result 263 k/mm3 (150-375); Red Blood Count 4.57 M/mm3 (4.2-5.4); Red Cell Distribution Width 13.8 % (11.5-14.5); White Blood Count 9.8 K/mm3 (4.5-10.0)
[2020-05-21 06:52] LABS: Anion Gap 5 mmol/L (8-16); Blood Urea Nitrogen 20 mg/dL (7-17); Calcium 8.3 mg/dL (8.4-10.2); Carbon Dioxide 36 mmol/L (22-30); Chloride 96 mmol/L (98-107); Estimated CRCL calculation 139 ml/min; Estimated Glomerular Filt Rate > 60; Glucose 136 mg/dL (65-105); Sodium 137 mmol/L (137-145)
[2020-05-21 07:13] LABS: Potassium 4.6 mmol/L (3.4-5.0)
[2020-05-21] MEDS: amLODIPine BESYLATE 5 MG TABLET PO (08:27)
[2020-05-21] MEDS: FLUTICASONE PROPIONATE 0.05% NA SPR 16 GM BTL (*BKC) 1 SPRAY NASAL (08:27)
[2020-05-21] MEDS: DOCUSATE SODIUM 100 MG CAPSULE PO (08:28)
[2020-05-21] MEDS: DULoxetine HCL 60 MG CAPSULE.DR PO (08:28)
[2020-05-21] MEDS: ENOXAPARIN 30 MG/0.3 ML SYRINGE SUB-Q ×2 (08:28→20:27)
[2020-05-21] MEDS: guaiFENesin 12 HR 600 MG TABCR PO ×2 (08:29→20:28)
[2020-05-21] MEDS: FAMOTIDINE 20 MG TABLET PO (08:29)
[2020-05-21] MEDS: LORATADINE 10 MG TABLET PO (08:29)
[2020-05-21] MEDS: BUDESONIDE/FORMOTEROL (*SP) 160-4.5 MCG 6 GM INH 2 PUFF INHALATION ×2 (08:34→20:52)
--- NOTE | 2020-05-21 11:31 | PM.IMPN ---
Progress Note: A&P Assessment and Plan (1) Acute respiratory failure: Code(s): J96.00 - Acute respiratory failure, unspecified whether with hypoxia or hypercapnia Status: Acute Assessment and Plan: Hypoxic upon presentation at 76%. [place] to be secondary to community-acquired pneumonia in conjunction with asthma. CTA was negative for pulmonary embolism. She was weaned to room air and is tolerating this well. Continue supplemental oxygen as needed to maintain an oxygen saturation of 90% or above. Continue treatment for pneumonia and asthma as detailed below. (2) Community acquired pneumonia: Code(s): J18.9 - Pneumonia, unspecified organism Status: Acute Assessment and Plan: CXR showed possible bibasilar groundglass opacities with infectious process. COVID-19 testing was performed and is negative. She was weaned to room air today. She is afebrile. No leukocytosis. Continue azithromycin and ceftriaxone IV (initiated 05/19/2020). Urine pneumococcal and Legionella antigen were ordered and are pending. Blood cultures demonstrate NGTD. Continue supportive care including antipyretics, bronchodilators, expectorants, and incentive spirometry. Influenza will be ordered again as it was not collected. (3) Asthma exacerbation: Code(s): J45.901 - Unspecified asthma with (acute) exacerbation Status: Acute Assessment and Plan: Patient is established with auditor tax Dr. Lopez at [facility]. She recently completed a lengthy prednisone taper about 1 week ago with not much improvement. Wheezing noted on auscultation. Continue IV solu-medrol. Continue albuterol nebs. Continue symbicort. Continue home regimen of singulair, spiriva, and fluticasone. (4) Hypertension: Code(s): I10 - Essential (primary) hypertension Status: Inactive Assessment and Plan: Blood pressures are at target. Most recent BP is 129/72. Continue amlodipine. (5) COVID-19 ruled out by laboratory testing: Code(s): Z03.818 - Encounter for observation for suspected exposure to other biological agents ruled out Status: Acute Assessment and Plan: Patient tested negative for COVID-19 on 05/18/2020. Isolation precautions discontinued. (6) Dysuria: Code(s): R30.0 - Dysuria Status: Acute Assessment and Plan: The pt reports dysuria. Will check urinalysis. She is on ceftriaxone for the treatment of CAP. Subjective Date/time seen: 05/21/20 11:31 Interval history: Mrs. Leos is a 50 y.o. female with PMH significant for asthma and hypertension who is seen in follow up for community acquired pneumonia and asthma exacerbation. She was weaned to room air today and feels better. She is still having dyspnea with minimal activity but this is improving. She denies cough. She denies subjective fever and chills. Bowels are regular and she is tolerating her diet. She denies nausea and vomiting. She is not having any chest pain or pleuritic pain. She reports some wheezing. She notes minimal dysuria described as burning and would like to have urinalysis checked. She denies increased frequency, urgency, and hesitancy. She noted some vague right flank discomfort which has subsequently resolved but would like to ensure she does not have a UTI. Review of Systems Review of Systems: All systems reviewed & are unremarkable except as noted in HPI and below Exam Narrative: Exam Narrative: General: Very pleasant, well-developed and obese 50 y.o. female lying semi-recumbent in bed in no acute distress. HEENT: Normocephalic and atraumatic. Oral mucosa moist. Neck: Supple. Cardiac: Regular rate and rhythm. S1 and S2 normal. Lungs: Tolerating room without increased work of breathing. Speaking in full sentences. Respirations even and non-labored. Breath sounds diminished throughout with faint expiratory wheezes occasionally. Abdomen: Bowel sounds are normoactive. Abdomen is obese,
[2020-05-21 14:00] LABS: Influenza Control Positive
[2020-05-21 17:44] LABS: Add Urine Microscopic? YES; Appearance Urine Clear (Clear); Bilirubin Urine Negative (Negative); Blood Urine Negative (Negative); Color Urine Straw (Yellow); Glucose Urine UA Negative (Negative); Ketones Urine Negative (Negative); Leukocyte Esterase Ur Trace LEU/UL (Negative); Nitrate Urine Negative (Negative); Protein Urine Negative (Negative); RBC Urine 0-2 /hpf (0-2); Specific Grav Ur 1.012 (1.001-1.035); Squamous Epithelial Cell Urine Few /hpf (Few); Urobilinogen Urine Negative mg/dL (<2.0); WBC Urine 0-3 /hpf
[2020-05-21] MEDS: MONTELUKAST SODIUM 10 MG TABLET PO (20:28)
[2020-05-22] VITALS (9 sets, daily range): BP systolic 130–149; BP diastolic 75–96; PULSE 79–103; RESP 14–20; TEMP 36.7–37; O2SAT 90–95
[2020-05-22 06:09] LABS: Legionella pneumophila Ag Ur Not Detected (Not Detected)
[2020-05-22 06:48] LABS: Hematocrit 40.2 % (37.0-47.0); Hemoglobin 12.5 g/dL (12.0-15.0); Mean Corpuscular HGB Conc 31.1 g/dl (32-36); Mean Corpuscular Hemoglobin 26.9 pg (26-34); Mean Corpuscular Volume 86.5 fl (80-100); Mean Platelet Volume 8.8 fl (7.4-10.4); Platelet Count Result 238 k/mm3 (150-375); Red Blood Count 4.65 M/mm3 (4.2-5.4); White Blood Count 7.9 K/mm3 (4.5-10.0)
[2020-05-22] MEDS: methylPREDNISolone SOD SUCC 125 MG VIAL 60 MG IV PUSH ×2 (07:06→20:36)
[2020-05-22 09:16] LABS: Anion Gap 5 mmol/L (8-16); Blood Urea Nitrogen 19 mg/dL (7-17); CRP 0.5 mg/dL (<1.0); Calcium 8.7 mg/dL (8.4-10.2); Carbon Dioxide 35 mmol/L (22-30); Chloride 96 mmol/L (98-107); Estimated CRCL calculation 139 ml/min; Estimated Glomerular Filt Rate > 60; Glucose 106 mg/dL (65-105); Potassium 4.5 mmol/L (3.4-5.0); Sodium 136 mmol/L (137-145)
[2020-05-22] MEDS: ALBUTEROL SULFATE NEB 2.5 MG/0.5 ML INH 5 MG INHALATION ×3 (09:31→20:36)
[2020-05-22] MEDS: BUDESONIDE/FORMOTEROL (*SP) 160-4.5 MCG 6 GM INH 2 PUFF INHALATION ×2 (09:31→20:36)
[2020-05-22] MEDS: amLODIPine BESYLATE 5 MG TABLET PO (09:43)
[2020-05-22] MEDS: FLUTICASONE PROPIONATE 0.05% NA SPR 16 GM BTL (*BKC) 1 SPRAY NASAL (09:44)
[2020-05-22] MEDS: ENOXAPARIN 30 MG/0.3 ML SYRINGE SUB-Q ×2 (09:44→20:36)
[2020-05-22] MEDS: LORATADINE 10 MG TABLET PO (09:44)
[2020-05-22] MEDS: DOCUSATE SODIUM 100 MG CAPSULE PO (09:44)
[2020-05-22] MEDS: FAMOTIDINE 20 MG TABLET PO (09:44)
[2020-05-22] MEDS: DULoxetine HCL 60 MG CAPSULE.DR PO (09:44)
[2020-05-22] MEDS: guaiFENesin 12 HR 600 MG TABCR PO ×2 (09:44→20:36)
--- NOTE | 2020-05-22 10:32 | PM.IMPN ---
Progress Note: A&P Assessment and Plan (1) Acute respiratory failure: Code(s): J96.00 - Acute respiratory failure, unspecified whether with hypoxia or hypercapnia Status: Acute Assessment and Plan: Hypoxic upon presentation at 76%. [place] to be secondary to community-acquired pneumonia in conjunction with asthma. CTA was negative for pulmonary embolism. She was weaned to room air 05/21 and is tolerating this well. Continue supplemental oxygen as needed to maintain an oxygen saturation of 90% or above. Continue treatment for pneumonia and asthma as detailed below. Home oxygen evaluation was performed today and she did desaturate to 88% with ambulation so we will plan to keep her overnight with re-evaluation with repeat home oxygen evaluation tomorrow. (2) Community acquired pneumonia: Code(s): J18.9 - Pneumonia, unspecified organism Status: Acute Assessment and Plan: CXR showed possible bibasilar groundglass opacities with infectious process. COVID-19 testing was performed and is negative. She was weaned to room air 05/21. She is afebrile. WBC is normal. Continue ceftriaxone IV (day 5/7) and azithromycin (day 5/5) - both initiated 05/18/2020. Urine pneumococcal is pending and urine legionella is negative. Blood cultures demonstrate NGTD. Continue supportive care including antipyretics, bronchodilators, expectorants, and incentive spirometry. Influenza is negative. (3) Asthma exacerbation: Code(s): J45.901 - Unspecified asthma with (acute) exacerbation Status: Acute Assessment and Plan: Patient is established with cell preparer Dr. Lopez at [facility]. She recently completed a lengthy prednisone taper about 1 week ago with not much improvement. She had significant wheezing initially which has improved. Continue IV solu-medrol, taper to Q12H. Continue albuterol nebs. Continue symbicort. Continue home regimen of singulair, spiriva, and fluticasone. (4) Hypertension: Code(s): I10 - Essential (primary) hypertension Status: Inactive Assessment and Plan: Blood pressures are at target. Continue amlodipine. (5) COVID-19 ruled out by laboratory testing: Code(s): Z03.818 - Encounter for observation for suspected exposure to other biological agents ruled out Status: Acute Assessment and Plan: Patient tested negative for COVID-19 on 05/18/2020. Isolation precautions discontinued. (6) Dysuria: Code(s): R30.0 - Dysuria Status: Acute Assessment and Plan: The pt reported dysuria. Urinalysis was unremarkable. She is on ceftriaxone. I provided reassurance to the patient. Subjective Date/time seen: 05/22/20 10:32 Interval history: Mrs. Leos is a 50 y.o. female with PMH significant for asthma and hypertension who is seen in follow up for community acquired pneumonia and asthma exacerbation. She feels much better today. She remains on room air. Her wheezing and dyspnea have improved significantly. She is not having any chest pain. She reports minimal cough. She hopes to discharge soon. Bowels are regular and she is not having any urinary symptoms. Her appetite is good. Review of Systems Review of Systems: All systems reviewed & are unremarkable except as noted in HPI and below Exam Narrative: Exam Narrative: General: Pleasant, well-developed, and obese 50 y.o. female lying semi-recumbent in bed resting in no acute respiratory distress. HEENT: Normocephalic and atraumatic. Oral mucosa moist. Neck: Supple. Cardiac: Regular rate and rhythm. S1 and S2 normal. Lungs: Tolerating room air. Respirations are even and non-labored. Breath sounds are diminished. No wheezes or rales appreciated. Abdomen: Bowel sounds are normoactive. Abdomen is obese, soft, non-tender, and non-distended. Extremities: No lower extremity edema or calf tenderness. DP and PT 2+ bilaterally. Neurological: Alert. Exam non-focal to casual conve
[2020-05-22] MEDS: MONTELUKAST SODIUM 10 MG TABLET PO (20:54)
[2020-05-23 00:07] LABS: Pneumococcal Antigen Urine Not Detected (Not Detected)
[2020-05-23] MEDS: ALBUTEROL SULFATE NEB 2.5 MG/0.5 ML INH 5 MG INHALATION ×2 (03:21→09:24)
[2020-05-23 03:23] VITALS: PULSE 92; RESP 18
[2020-05-23 06:00] VITALS: BP 139/58; PULSE 80; RESP 16; TEMP 36.6; O2SAT 93
[2020-05-23] MEDS: methylPREDNISolone SOD SUCC 125 MG VIAL 60 MG IV PUSH (08:09)
[2020-05-23] MEDS: ENOXAPARIN 30 MG/0.3 ML SYRINGE SUB-Q (08:14)
[2020-05-23] MEDS: DOCUSATE SODIUM 100 MG CAPSULE PO (08:15)
[2020-05-23] MEDS: guaiFENesin 12 HR 600 MG TABCR PO (08:15)
[2020-05-23] MEDS: LORATADINE 10 MG TABLET PO (08:15)
[2020-05-23] MEDS: FAMOTIDINE 20 MG TABLET PO (08:15)
[2020-05-23] MEDS: amLODIPine BESYLATE 5 MG TABLET PO (08:15)
[2020-05-23] MEDS: DULoxetine HCL 60 MG CAPSULE.DR PO (08:15)
[2020-05-23] MEDS: FLUTICASONE PROPIONATE 0.05% NA SPR 16 GM BTL (*BKC) 1 SPRAY NASAL (08:18)
[2020-05-23] MEDS: BUDESONIDE/FORMOTEROL (*SP) 160-4.5 MCG 6 GM INH 2 PUFF INHALATION (09:23)
[2020-05-23 09:45] VITALS: PULSE 106; O2SAT 94
[2020-05-23 09:50] VITALS: PULSE 120; O2SAT 87
[2020-05-23 09:55] VITALS: PULSE 126; O2SAT 90
[2020-05-23 10:10] VITALS: PULSE 104; O2SAT 93
--- NOTE | 2020-05-23 10:33 | HOMEO2EVAL ---
Home Oxygen Evaluation RC: Home Oxygen (O2) Evaluation Start: 05/22/20 10:30 Freq: ONCE Status: Active Protocol: RPE Activity Type Activity Date Activity User E-Sign Co-Sign Detail Recorded Client Recorded Date Recorded By Document 05/23/20 09:45 DJO [email or web address] 05/23/20 10:31 DJO Document 05/23/20 09:50 DJO [email or web address] 05/23/20 10:31 DJO Document 05/23/20 09:55 DJO [email or web address] 05/23/20 10:31 DJO Document 05/23/20 10:10 DJO [email or web address] 05/23/20 10:31 DJO 05/23/20 05/23/20 05/23/20 09:45 09:50 09:55 Home O2 Evaluation Test Phase Resting Exercise Exercise Oxygen Delivery Room Air Room Air Nasal Cannula Oxygen Flow Rate (L/min) 1 Pulse Oximetry (90-100 %) 94 87 L 90 Pulse Rate (60-100 beats/min) 106 H 120 H 126 H Activity Tolerance Good Good Ambulation Distance (feet) 1,000 Treatment Charges O2 Evaluation 05/23/20 10:10 Home O2 Evaluation Test Phase Resting Oxygen Delivery Room Air Oxygen Flow Rate (L/min) Pulse Oximetry (90-100 %) 93 Pulse Rate (60-100 beats/min) 104 H Activity Tolerance Ambulation Distance (feet) Treatment Charges
--- NOTE | 2020-05-23 10:47 | PM.DS ---
DS: Admitting Diagnosis Admitting Diagnosis Admitting Diagnosis: Respiratory failure/Pneumonia DS: Discharge Diagnosis Discharge Diagnosis (1) Acute respiratory failure: Code(s): J96.00 - Acute respiratory failure, unspecified whether with hypoxia or hypercapnia Status: Acute Assessment and Plan: Discharge Summary (Date of service 05/18/20): Mrs. Leos is a 50 y.o. female with PMH significant for asthma and hypertension who presented to the emergency department 05/18/20 for the evaluation of shortness of breath and fevers. She reported recurrent issues with her asthma the past several months and took several antibiotics and steroid tapers without significant relief. She was hypoxic upon presentation to the emergency department with oxygen saturation of 76% which improved with supplemental oxygen via nasal cannula. CXR demonstrated bibasilar opacities and CTA chest was negative for pulmonary embolism. She was admitted to the hospitalist service for community acquired pneumonia and asthma exacerbation. She was treated with IV ceftriaxone, IV azithromycin and IV solu-medrol. She was tested for COVID-19 which was negative. Influenza was also negative. Her dyspnea and wheezing improved significantly. IV solu-medrol was tapered. She was weaned to room air at rest on 05/21. Home oxygen evaluation was performed and she did desaturate with activity, requiring 1 liter of oxygen with activity only. She felt much better overall and requested to go home. She was discharged with supplemental oxygen for home, methylprednisololne taper, and 2 additional days of PO cefdinir. I advised that she will need repeat home oxygen evaluation in 1 week to determine if the oxygen is still required. She was discharged in hemodynamically stable condition on the afternoon of 05/23/20. (2) Community acquired pneumonia: Code(s): J18.9 - Pneumonia, unspecified organism Status: Acute Assessment and Plan: As above. (3) Asthma exacerbation: Code(s): J45.901 - Unspecified asthma with (acute) exacerbation Status: Acute Assessment and Plan: As above. She is established with group dynamics instructor Dr. Lopez at [facility] and was encouraged to follow-up at discharge. (4) Hypertension: Code(s): I10 - Essential (primary) hypertension Status: Inactive Assessment and Plan: Blood pressures were reviewed and were at target. Amlodipine was continued. (5) COVID-19 ruled out by laboratory testing: Code(s): Z03.818 - Encounter for observation for suspected exposure to other biological agents ruled out Status: Acute Assessment and Plan: Patient tested negative for COVID-19 on 05/18/2020. (6) Dysuria: Code(s): R30.0 - Dysuria Status: Acute Assessment and Plan: The pt reported dysuria. Urinalysis was unremarkable. She was on ceftriaxone for the treatment of CAP. I provided reassurance to the patient. DS: Summary Hospital Course Reason for hospitalization: Shortness of breath Hospital Course: As above. Status at Discharge Functional status at discharge: independent ambulation Overall status at discharge: patient is back to baseline Time Spent with Patient Time attestation: Total time spent providing and/or coordinating discharge services: 45 minutes Exam Narrative: Exam Narrative: Vitals at presentation: Temp Pulse Resp BP Pulse Ox 98.5 F 82 25 H 144/89 H 76 L 05/18/20 14:22 05/18/20 14:22 05/18/20 14:22 05/18/20 14:22 05/18/20 14:22 Vitals at discharge: Temp Pulse Resp BP Pulse Ox 97.8 F 104 H 16 139/58 L 93 05/23/20 06:00 05/23/20 10:10 05/23/20 06:00 05/23/20 06:00 05/23
--- NOTE | 2020-05-23 11:26 | PCRCNOTE ---
HOME O2 EVAL COMPLETE, REQUIRES 1 LITER WITH ACTIVITY. SET UP WITH [facility] PHONE NUMBER [phone]. TANK HAS BEEN DELIVERED TO PT'S ROOM.
== END 2020-05-23 11:45 | disposition home or self-care (01) | DRG 139 ==
LOC: ANHED 17:13 → ANH3MEDSUR 17:18
PROVIDERS: Physician Assistant; Admitting Provider Family Medicine; Emergency Provider Emergency Medicine; Visit Provider Internal Medicine
DX: J18.9 Pneumonia, unspecified organism (principal); J96.01 Acute respiratory failure with hypoxia; J45.901 Unspecified asthma with (acute) exacerbation; E87.2 Acidosis; Z20.828 Contact with and (suspected) exposure to other viral communicable diseases; G47.33 Obstructive sleep apnea (adult) (pediatric); J32.9 Chronic sinusitis, unspecified; I10 Essential (primary) hypertension; K21.9 Gastro-esophageal reflux disease without esophagitis; M79.7 Fibromyalgia; R30.0 Dysuria; Z28.21 Immunization not carried out because of patient refusal; Z79.899 Other long term (current) drug therapy
CPT/HCPCS: 36415; 36600; 71045; 71275; 80048; 80053; 81001; 82375; 82728; 82805; 83050; 83605; 83615; 83880; 84484; 85025; 85027; 85610; 85730; 86140; 87040; 87449; 87635; 87804; 87899; 93005; 94618; 94640; 94762; 96365; 96367; 96372; 96375; 96376; 99291; A9270; C9803; G0378; G0379; J0456; J0696; J1100; J1650; J2930; J7040; Q9967; U0003

== ENCOUNTER 2020-07-23 11:08 | Emergency (ER) | payer OTHER, SELFPAY ==
--- NOTE | ~2020-07-23 | XR_ITS ---
EXAMINATION: XR chest 2V DATE: 07/23/2020 12:33 INDICATION: Shortness of breath. TECHNIQUE: Frontal and lateral views of the chest were obtained. COMPARISON: Chest single view 05/18/2020, chest CT 05/18/2020 FINDINGS: The chest demonstrates clear lungs without pneumonia, pleural effusion, or pneumothorax. Th e heart size is normal. There are multiple old healed rib fractures bilaterally. IMPRESSION: 1. No acute cardiopulmonary disease. Reviewed, dictated and finalized at location B. IOPULMONARY TECHNOLOGIST CHIEF
--- NOTE | ~2020-07-23 | CT_ITS ---
EXAMINATION: CTA chest PE protocol DATE: 07/23/2020 14:06 INDICATION: Chest pain. Shortness of breath. TECHNIQUE: Computed tomography angiography (CTA) of the chest was performed with 200 mL Omnipaque-350 intravenous contrast timed to evaluate the pulmonary arteries. Coronal maximum intensity projection 3D-reconstructions were created by the technologist. Automated exposure control and iterative reconst ruction technique were employed. The dose-length product was 2023.24 mGy-cm. COMPARISON: Chest CT 05/18/2020, CT abdomen and pelvis 03/05/2015 FINDINGS: There is mosaic attenuation throughout the lungs, likely small airways disease. There is a new small groundglass opacity in right upper lobe. There is a new small groundglass opacity in left u pper lobe. No pleural effusion. The heart size is normal. No pericardial effusion. There is no pulmon amy embolus. The main pulmonary artery is enlarged, consistent with pulmonary arterial hypertension. There are numerous old rib fractures bilaterally. There is moderate thoracic spondylosis. IMPRESSION: 1. No pulmonary embolus. Enlarged main pulmonary artery, consistent with pulmonary arterial hypertens ion. 2. New small groundglass opacities in the upper lobes, consistent with infection versus inflammation. 3. Chronic mosaic attenuation throughout the lungs, likely small airways disease. Reviewed, dictated and finalized at location B. CY WRITER IMPRESSION: 1. No pulmonary embolus. Enlarged main pulmonary artery, consistent with pulmon amy arterial hypertension. 2. New small groundglass opacities in the upper lobes, consistent with infectio n versus inflammation. 3. Chronic mosaic attenuation throughout the lungs, likely small airways diseas e.
[2020-07-23 11:36] VITALS: BP 167/92; PULSE 91; RESP 22; O2SAT 98
--- NOTE | 2020-07-23 11:43 | ECG_ITS ---
Measurements Intervals [place] Rate: 89 P: IN: 0 QRS: 50 QRSD: 100 T: 49 QT: 342 QTc: 418 Interpretive Statements SINUS RHYTHM ATRIAL PREMATURE COMPLEXES BASELINE ARTIFACT- I, II, III, AVR, AVL, AVF ABNORMAL ECG Electronically Signed On 07-23-2020 12:12:24 DENTAL LABORATORY ASSISTANT by Denis Moody D.O.
[2020-07-23 12:02] VITALS: PULSE 86
[2020-07-23 12:12] LABS: Basophils Percent Auto 0.3 % (0.2-1.2); Eosinophils Absolute Auto 0.2 K/mm3 (0-0.3); Eosinophils Percent Auto 3.3 % (0-4.4); Hematocrit 39.3 % (37.0-47.0); Hemoglobin 12.1 g/dL (12.0-15.0); Immature Granulocyte Absolute 0.01 K/mm3 (0.00-0.031); Immature Granulocyte Percent A 0.2 % (0-0.5); Lymphocytes Percent Auto 17.1 % (18.3-44.2); Mean Corpuscular HGB Conc 30.8 g/dl (32-36); Mean Corpuscular Hemoglobin 26.8 pg (26-34); Mean Corpuscular Volume 87.1 fl (80-100); Monocytes Absolute Auto 0.7 K/mm3 (0.1-0.6); Monocytes Percent Auto 10.6 % (2.6-8.5); Neutrophils Absolute Auto 4.4 K/mm3 (1.3-6.7); Neutrophils Percent Auto 68.5 % (45.5-73.1); Platelet Count Result 213 k/mm3 (150-375); Red Blood Count 4.51 M/mm3 (4.2-5.4); Red Cell Distribution Width 14.4 % (11.5-14.5); White Blood Count 6.4 K/mm3 (4.5-10.0)
[2020-07-23 12:22] LABS: Anion Gap 2 mmol/L (8-16); Blood Urea Nitrogen 10 mg/dL (7-17); Calcium 8.4 mg/dL (8.4-10.2); Carbon Dioxide 35 mmol/L (22-30); Chloride 100 mmol/L (98-107); Estimated CRCL calculation 132 ml/min; Estimated Glomerular Filt Rate > 60; Glucose 95 mg/dL (65-105); Potassium 4.2 mmol/L (3.4-5.0); Sodium 137 mmol/L (137-145)
--- NOTE | 2020-07-23 12:25 | PC.NURSE ---
PT TO XRAY VIA STRETCHER ON 2 L NC.
[2020-07-23 12:31] LABS: NT Pro B Type Natriuretic Pept 109 PG/ML (5-100)
[2020-07-23 13:34] VITALS: BP 135/77; PULSE 91; RESP 16; O2SAT 96
[2020-07-23 13:36] VITALS: PULSE 93; RESP 24
[2020-07-23] MEDS: ALBUTEROL SULFATE NEB 2.5 MG/0.5 ML INH 5 MG INHALATION (13:36)
[2020-07-23] MEDS: IPRATROPIUM BR 0.02% INH SOLN 0.5 MG/2.5 ML VIAL INHALATION (13:36)
[2020-07-23 13:41] VITALS: PULSE 91; RESP 17
[2020-07-23 14:41] VITALS: BP 153/76; PULSE 92; RESP 15; O2SAT 97
--- NOTE | 2020-07-23 14:51 | ED.SOB ---
HPI - SOB/Dyspnea General Chief Complaint: Shortness of Breath/Dyspnea Stated Complaint: sob, pneumonia last month Time Seen by Provider: 07/23/20 11:29 History of Present Illness HPI Narrative: Patient is a 50-year-old female who presents ER with shortness of breath. Patient was hospitalized a couple months ago for pneumonia. Since then she has been oxygen dependent. She wears 1 to 2 L of oxygen at a time. Reports she thinks she has had some low O2 sats at home in the 80s while on this oxygen. No new fevers or chills. Chronic cough. She has been using her nebulizer regularly. 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 No chest pain or chest pressure. She did talk to her PCP and there is concerned that she could have a pulmonary embolism. She has outpatient tests ordered but does not know what they are. Related Data Home Medications Medication Instructions Recorded Confirmed Spiriva Respimat 2 puff INHALATION DAILY 08/06/19 05/18/20 amlodipine [Norvasc] 5 mg PO DAILY 08/06/19 05/18/20 budesonide-formoterol [Symbicort] 2 puff INHALATION Q12H 08/06/19 05/18/20 cetirizine [Zyrtec] 10 mg PO DAILY 08/06/19 05/18/20 montelukast [Singulair] 10 mg PO DAILY 08/06/19 05/18/20 albuterol sulfate 2.5 mg CONTINUOUS NEBULIZATION 03/24/20 05/18/20 DIRECTED diclofenac sodium 75 mg PO DAILY 03/24/20 05/18/20 docusate sodium [DOK] 1 mg PO DAILY 03/24/20 05/18/20 duloxetine 60 mg PO DAILY 03/24/20 05/18/20 famotidine 20 mg PO DAILY 03/24/20 05/18/20 fluticasone propionate 50 mcg INTRANASAL DAILY 03/24/20 05/18/20 Allergies Allergy/AdvReac Type Severity Reaction Status Date / Time METALS Allergy Intermediate Rash Uncoded 07/23/20 11:39 Review of Systems Review of Systems: All systems reviewed & are unremarkable except as noted in HPI and below Constitutional: Constitutional: Denies chills, Reports fatigue, Denies fever(s) and Denies weakness ENT: Denies nasal congestion and Denies sore throat Cardiovascular: Cardiovascular: Denies chest pain and Denies radiating jaw, neck or arm pain Respiratory: Respiratory: Reports cough, Reports dyspnea and Reports wheezing Gastrointestinal: Gastrointestinal: Denies abdominal pain, Denies nausea and Denies vomiting Musculoskeletal: Musculoskeletal: Denies back pain and Denies muscle cramps Neurologic: Denies dizziness, Denies focal weakness and Denies numbness PMFSH Past Medical History Medical History (Updated 07/23/20 @ 15:15 by Holden Bundy MD) Anxiety Asthma Chronic sinusitis Fibromyalgia Gastroesophageal reflux disease Hypertension Morbid obesity Obstructive sleep apnea Patient reports that her most recent sleep study showed no indication for CPAP. Tendonitis Surgical History Surgical History (Updated 05/18/20 @ 19:21 by Ines Bertrand PA-C) History of bilateral carpal tunnel release x2 History of cervical spinal surgery History of section History of endometrial ablation History of sinus surgery History of tubal ligation (~2009) Anterior ethmoid and maxillary antrostomy. Family History Family History (Updated 05/18/20 @ 19:21 by Ines Bertrand PA-C) Father Hypertension Colon cancer Mother Alive and well Colon cancer Breast cancer Sibling Colon cancer Social History Social History (Updated 05/19/20 @ 00:21 by Ines Bertrand PA-C) Social History: Surrogate decision maker: Bisi Sanderson, mother. Code status: Full code. Smoking status: Never smoker Second hand tobacco smoke exposure: No Alcohol intake: never Substance use: never Substance use type: does not use Additional living arrangements comments: Lives in [place] with a friend. 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 Gender identity (if verbalized by the patient): Female Spiritual care concerns: No Exam Narrative: Exam Narrative: GENERAL: Wel
== END 2020-07-23 16:08 | disposition home or self-care (01) ==
PROVIDERS: Emergency Provider Emergency Medicine
DX: J18.9 Pneumonia, unspecified organism (principal); J45.909 Unspecified asthma, uncomplicated; M79.7 Fibromyalgia; K21.9 Gastro-esophageal reflux disease without esophagitis; I10 Essential (primary) hypertension; E66.01 Morbid (severe) obesity due to excess calories; Z68.43 Body mass index [BMI] 50.0-59.9, adult; G47.33 Obstructive sleep apnea (adult) (pediatric); Z99.81 Dependence on supplemental oxygen; I49.1 Atrial premature depolarization
CPT/HCPCS: 36415; 71046; 71275; 80048; 83880; 85025; 93005; 94640; 99284; Q9967

== ENCOUNTER 2022-04-01 11:50 | Emergency (ER) | payer OTHER, SELFPAY ==
[2022-04-01 12:00] VITALS: BP 133/75; PULSE 90; RESP 20; TEMP 36.7; O2SAT 93
--- NOTE | 2022-04-01 12:03 | ED.URI ---
HPI - URI/Sore Throat General Chief Complaint: Upper Respiratory Infection Stated Complaint: sob Time Seen by Provider: 04/01/22 12:03 Source: patient Mode of arrival: ambulatory Limitations: no limitations History of Present Illness HPI Narrative: Lore is a 52-year-old female patient presenting to the clinic today with complaints of shortness of breath, sinus pressure and congestion. She reports she is having a productive cough with creamy white phlegm. Has had a headache due to the sinus pressure for over 3 weeks. She was diagnosed with COVID 3 weeks ago. She is currently on oxygen. She does have history of asthma. She denies any recent fever or chills since COVID. States she has been on BiPAP and on oxygen since she had COVID MD elicited complaint: sore throat and nasal congestion Related Data Home Medications Medication Instructions Recorded Confirmed amlodipine 5 mg tablet (Norvasc) 5 mg PO DAILY 08/06/19 04/01/22 budesonide-formoterol HFA 160 2 puff inhalation Q12H 08/06/19 04/01/22 mcg-4.5 mcg/actuation aerosol inhaler (Symbicort) cetirizine 10 mg tablet (Zyrtec) 10 mg PO DAILY 08/06/19 04/01/22 montelukast 10 mg tablet 10 mg PO DAILY 08/06/19 04/01/22 (Singulair) tiotropium bromide 1.25 2 puff inhalation DAILY 08/06/19 04/01/22 mcg/actuation mist for inhalation (Spiriva Respimat) diclofenac sodium 75 mg 75 mg PO DAILY 03/24/20 04/01/22 tablet,delayed release docusate sodium 100 mg capsule 1 mg PO DAILY 03/24/20 04/01/22 (DOK) duloxetine 60 mg capsule,delayed 60 mg PO DAILY 03/24/20 04/01/22 release famotidine 20 mg tablet 20 mg PO DAILY 03/24/20 04/01/22 buspirone 10 mg tablet 10 mg PO TID 04/01/22 04/01/22 epinephrine 0.3 mg/0.3 mL 0.3 ml subcut DIRECTED 04/01/22 04/01/22 injection, auto-injector hydrochlorothiazide 12.5 mg tablet 12.5 mg PO DAILY 04/01/22 04/01/22 torsemide 10 mg tablet 10 mg PO DIRECTED 04/01/22 04/01/22 Allergies Allergy/AdvReac Type Severity Reaction Status Date / Time METALS Allergy Intermediate Rash Uncoded 04/01/22 11:51 Review of Systems Review of Systems: Pertinent positives per HPI. Patient denies any fever, chills, rash, headache, visual changes, dizziness, chest pain, palpitations, nausea, vomiting, diarrhea, constipation, abdominal pain, or any urinary issues. [facility] Past Medical History Medical History Anxiety Asthma Chronic sinusitis Fibromyalgia Gastroesophageal reflux disease Hypertension Morbid obesity Obstructive sleep apnea Patient reports that her most recent sleep study showed no indication for CPAP. Tendonitis Surgical History Surgical History History of bilateral carpal tunnel release x2 History of cervical spinal surgery History of section History of endometrial ablation History of sinus surgery History of tubal ligation (~2009) Anterior ethmoid and maxillary antrostomy. Family History Family History Father Hypertension Colon cancer Mother Alive and well Colon cancer Breast cancer Sibling Colon cancer Social History Social History Social History: Surrogate decision maker: Bisi Pardo Kin, mother. Code status: Full code. Smoking status: Never smoker Second hand tobacco smoke exposure: No Alcohol intake: never Substance use: never Substance use type: does not use Additional living arrangements comments: Lives in [place] with a friend. 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 Gender identity (if verbalized by the patient): Female Sexual Orientation (if Verbalized by the Patient): Straight or Heterosexual Spiritual care concerns: No Comments At the time of my signature, I reviewed and ag
== END 2022-04-01 12:13 | disposition home or self-care (01) ==
PROVIDERS: Emergency Provider Nurse Practitioner Family
DX: J01.90 Acute sinusitis, unspecified (principal); J45.909 Unspecified asthma, uncomplicated; M79.7 Fibromyalgia; K21.9 Gastro-esophageal reflux disease without esophagitis; I10 Essential (primary) hypertension; E66.01 Morbid (severe) obesity due to excess calories; Z68.43 Body mass index [BMI] 50.0-59.9, adult; F41.9 Anxiety disorder, unspecified
CPT/HCPCS: 99213; G0463

== ENCOUNTER 2022-07-27 09:12 | Outpatient (CLI) | payer OTHER, SELFPAY ==
[2022-07-27 10:11] LABS: Basophils Percent Auto 0.3 % (0.2-1.2); Eosinophils Absolute Auto 0.1 K/mm3 (0-0.3); Eosinophils Percent Auto 1.5 % (0-4.4); Hematocrit 34.3 % (37.0-47.0); Hemoglobin 9.6 g/dL (12.0-15.0); Immature Granulocyte Absolute 0.01 K/mm3 (0.00-0.031); Immature Granulocyte Percent A 0.2 % (0-0.5); Lymphocytes Absolute Auto 0.99 K/mm3 (0.9-3.2); Lymphocytes Percent Auto 14.9 % (18.3-44.2); Mean Corpuscular Hemoglobin 21.2 pg (26-34); Mean Corpuscular Volume 75.7 fl (80-100); Mean Platelet Volume 8.6 fl (7.4-10.4); Monocytes Absolute Auto 0.8 K/mm3 (0.1-0.6); Monocytes Percent Auto 12.6 % (2.6-8.5); Neutrophils Absolute Auto 4.7 K/mm3 (1.3-6.7); Neutrophils Percent Auto 70.5 % (45.5-73.1); Platelet Count Result 268 k/mm3 (150-375); Red Blood Count 4.53 M/mm3 (4.2-5.4); Red Cell Distribution Width 18.8 % (11.5-14.5); White Blood Count 6.7 K/mm3 (4.5-10.0)
[2022-07-27 10:14] LABS: Appearance Urine Clear (Clear); Bilirubin Urine Negative (Negative); Blood Urine Trace-intact (Negative); Color Urine Yellow (Yellow); Glucose Urine UA Negative (Negative); Ketones Urine Negative (Negative); Leukocyte Esterase Ur Negative LEU/UL (Negative); Nitrate Urine Negative (Negative); Protein Urine Negative (Negative); Specific Grav Ur >= 1.030 (1.001-1.035); Urobilinogen Urine 0.2 mg/dL (<2.0); pH Urine 6.5 (5.0-9.0)
[2022-07-27 10:19] LABS: Mucus Urine Rare /lpf; RBC Urine 0-2 /hpf (0-2); Squamous Epithelial Cell Urine Occasional /hpf (Few); WBC Urine 0-3 /hpf
[2022-07-27 10:20] LABS: Alanine Aminotransferase 22 U/L (6-35); Albumin Level 3.7 g/dL (3.5-5.1); Alkaline Phosphatase 131 U/L (38-126); Anion Gap 5 mmol/L (8-16); Aspartate Amino Transferase 24 U/L (14-36); Bilirubin,Total 0.5 mg/dL (0.2-1.3); Blood Urea Nitrogen 17 mg/dL (7-17); Calcium 8.3 mg/dL (8.4-10.2); Carbon Dioxide 33 mmol/L (22-30); Chloride 100 mmol/L (98-107); Cholesterol 137 mg/dL (0-200); Estimated Glomerular Filt Rate > 60; Glucose 98 mg/dL (65-110); HDL Direct 56 mg/dL; Potassium 4.1 mmol/L (3.4-5.0); Sodium 138 mmol/L (137-145); Triglycerides 47 mg/dL (<150)
[2022-07-27 10:21] LABS: Add Urine Microscopic? YES
[2022-07-27 10:22] LABS: Hemoglobin A1C 5.4 % (<5.7)
[2022-07-27 10:34] LABS: LDL Cholesterol Direct 51 mg/dL
[2022-07-27 10:58] LABS: Anisocytosis 1+ (NORMAL); Hypochromasia 2+ (NORMAL); Microcytosis 1+ (NORMAL); Platelet Estimate Adequate (Adequate); Schistocytes None Seen (NORMAL)
[2022-07-27 11:03] LABS: Free T4 Free Thyroxine 1.09 ng/mL (0.78-2.19)
[2022-07-27 11:31] LABS: Folic Acid > 20.0 ng/mL (2.76->20)
== END 2022-07-27 09:13 | disposition home or self-care (01) ==
LOC: ANHLAB 09:15
PROVIDERS: Visit Provider Nurse Practitioner Family
DX: I10 Essential (primary) hypertension (principal); Z13.9 Encounter for screening, unspecified
CPT/HCPCS: 36415; 80053; 80061; 81001; 82306; 82607; 82746; 83036; 84439; 84443; 85025

== ENCOUNTER 2022-10-02 22:16 | Inpatient (IN) | payer MEDICARE, MEDICAID, SELFPAY ==
--- NOTE | ~2022-10-02 | CT_ITS ---
EXAMINATION: CTA chest PE abdomen pel DATE: 10/03/2022 00:52 INDICATION: Shortness of breath. Low abdominal bloating. TECHNIQUE: Computed tomography angiography (CTA) of the chest was performed with 100 mL Omnipaque-350 intravenous contrast timed to evaluate the pulmonary arteries. Coronal maximum intensity projection 3D-reconstructions were created by the technologist. Computed tomography (CT) of the abdomen and pelv is was performed with intravenous contrast. Automated exposure control and iterative reconstruction t echnique were employed. The dose-length product was 2045.64 mGy-cm. COMPARISON: Chest CT 07/23/2020 FINDINGS: CTA chest: There is mosaic attenuation the lungs, likely small airways disease. There is mild atelect asis bilaterally. There are mild airspace opacities in right upper lobe. No pleural effusion. There i s a 10 mm nodule in right thyroid lobe, likely not clinically significant. The heart size is normal. No pericardial effusion. Main pulmonary artery is enlarged, consistent with pulmonary arterial hypert ension. There is no pulmonary embolus. There are old healed bilateral rib fractures. There is moderat e thoracic spondylosis. CT abdomen and pelvis: There is a chronic 8 mm hyperenhancing mass in right hepatic lobe, likely a he mangioma or focal nodular hyperplasia. The gallbladder, spleen, pancreas, adrenal glands, and kidneys are normal. There are no dilated loops of bowel. The appendix is normal. There are no pathologically enlarged lymph nodes. There is no free intraperitoneal fluid. There is severe lumbar spondylosis. IMPRESSION: 1. No pulmonary embolus. 2. Mild airspace opacities in right lung upper lobe, consistent with atelectasis versus pneumonia. Reviewed, dictated and finalized at location A. IMPRESSION: 1. No pulmonary embolus. 2. Mild airspace opacities in right lung upper lobe, consistent with atelectasi s versus pneumonia.
--- NOTE | ~2022-10-02 | XR_ITS ---
EXAMINATION: XR chest 2V DATE: 10/02/2022 23:06 INDICATION: Shortness of breath TECHNIQUE: Frontal and lateral views of the chest are obtained COMPARISON: 07/23/2020 FINDINGS: There is subsegmental atelectasis in the left lung base. No pleural effusion or pneumothora x. The cardiomediastinal silhouette is normal. There is moderate thoracic spondylosis. Healed bilater al rib fractures are noted. IMPRESSION: 1. Subsegmental atelectasis in the left lung base. Reviewed, dictated and finalized at location F.
--- NOTE | ~2022-10-02 | XR_ITS ---
EXAMINATION: XR chest 2V DATE: 10/06/2022 09:07 INDICATION: Cough. TECHNIQUE: Frontal and lateral views of the chest were obtained. COMPARISON: Chest 2 views 10/02/2022 FINDINGS: There is mild atelectasis in lingula. No pleural effusion or pneumothorax. The heart size i s normal. There are old healed bilateral rib fractures. IMPRESSION: 1. Mild atelectasis in lingula. Reviewed, dictated and finalized at location A.
[2022-10-02 22:19] VITALS: PULSE 105; RESP 26; TEMP 36.2; O2SAT 93
--- NOTE | 2022-10-02 22:24 | ECG_ITS ---
Measurements Intervals [place] Rate: 102 P: 64 [place]: 108 QRS: 55 QRSD: 122 T: 50 QT: 334 QTc: 435 Interpretive Statements SINUS TACHYCARDIA WITH SHORT [place] INTERVAL INTRAVENTRICULAR CONDUCTION DELAY COMPARED TO ECG 07/23/2020 11:32:22 SINUS TACHYCARDIA NOW PRESENT INTRAVENTRICULAR CONDUCTION DELAY NOW PRESENT Electronically Signed On 10-03-2022 10:16:48 CDT by Ryan La M.D.
[2022-10-02 22:41] LABS: Hematocrit 31.9 % (37.0-47.0); Mean Corpuscular HGB Conc 28.2 g/dl (32-36); Mean Corpuscular Hemoglobin 20.8 pg (26-34); Mean Corpuscular Volume 73.8 fl (80-100); Mean Platelet Volume 8.2 fl (7.4-10.4); Platelet Count Result 262 k/mm3 (150-375); Red Blood Count 4.32 M/mm3 (4.2-5.4); Red Cell Distribution Width 19.3 % (11.5-14.5); White Blood Count 6.9 K/mm3 (4.5-10.0)
[2022-10-02 22:54] LABS: Alanine Aminotransferase 21 U/L (6-35); Albumin Level 3.6 g/dL (3.5-5.1); Alkaline Phosphatase 127 U/L (38-126); Anion Gap 5 mmol/L (8-16); Aspartate Amino Transferase 25 U/L (14-36); Bilirubin,Total 0.4 mg/dL (0.2-1.3); Blood Urea Nitrogen 13 mg/dL (7-17); Calcium 8.4 mg/dL (8.4-10.2); Carbon Dioxide 39 mmol/L (22-30); Chloride 96 mmol/L (98-107); Estimated CRCL calculation 118 ml/min; Estimated Glomerular Filt Rate > 60; Glucose 129 mg/dL (65-110); Potassium 4.2 mmol/L (3.4-5.0); Sodium 140 mmol/L (137-145)
[2022-10-02 23:04] LABS: D Dimer 0.84 ug/mL (<0.48); NT Pro B Type Natriuretic Pept 62 pg/mL (19.9-100); Troponin I < 0.012 ng/mL (0.000-0.034)
[2022-10-02 23:12] LABS: Prothrombin Time 12.8 Seconds (11.1-14.7)
[2022-10-02 23:20] LABS: Anisocytosis 3+ (NORMAL); Band Neutrophils Percent 3 % (0-6); Basophils Absolute Manual 0.06 K/mm3 (0.0-0.1); Basophils Percent Manual 1 % (0-1); Eosinophils Absolute Manual 0.27 K/mm3 (0.02-0.5); Eosinophils Percent Manual 4 % (0-4); Large Platelets Present; Lymphocytes Absolute Manual 0.96 K/mm3 (1.1-4.5); Macrocytosis 1+ (NORMAL); Metamyelocytes Percent 1 %; Microcytosis 3+ (NORMAL); Monocytes Absolute Manual 0.27 K/mm3 (0.1-0.90); Monocytes Percent Manual 4 % (3-9); Neutrophils Absolute Manual 5.24 K/mm3 (1.7-7.2); Neutrophils Percent Manual 73 % (46-73); Platelet Estimate Adequate (Adequate); Poikilocytosis 1+ (NORMAL); Total Cells Counted 100
[2022-10-02 23:21] LABS: Hypochromasia 2+ (NORMAL); Schistocytes None Seen (NORMAL); Smudge Cells PRESENT; Stomatocytes 2+ (NORMAL)
[2022-10-03] VITALS (15 sets, daily range): BP systolic 106–126; BP diastolic 52–81; PULSE 77–101; RESP 18–24; TEMP 36.4–37.1; O2SAT 91–100
--- NOTE | 2022-10-03 00:11 | ED.SOB ---
HPI - SOB/Dyspnea General Chief Complaint: Shortness of Breath/Dyspnea Stated Complaint: sob, back pain Time Seen by Provider: 10/02/22 23:48 History of Present Illness HPI Narrative: 52-year-old female presenting to the emergency department for evaluation of multiple complaints. Patient states over the last few days she has had increasing shortness of breath, abdominal bloating and has noticed some blood in her stool. Patient is normally on 2 L of oxygen by nasal cannula due to chronic asthma. Patient states that she feels her shortness of breath has worsened. When patient was ambulating from the waiting room to the ED room she did become hypoxic on her 2 L. Patient states she is also noticed increased lower abdominal bloating. Patient does have a history of hemorrhoids and states she has noticed increased blood on her stool. Patient states she did pass 1 clot but denies any melena stools. Related Data Home Medications Medication Instructions Recorded Confirmed amlodipine 5 mg tablet (Norvasc) 5 mg PO DAILY 08/06/19 04/01/22 budesonide-formoterol HFA 160 2 puff inhalation Q12H 08/06/19 04/01/22 mcg-4.5 mcg/actuation aerosol inhaler (Symbicort) cetirizine 10 mg tablet (Zyrtec) 10 mg PO DAILY 08/06/19 04/01/22 montelukast 10 mg tablet 10 mg PO DAILY 08/06/19 04/01/22 (Singulair) tiotropium bromide 1.25 2 puff inhalation DAILY 08/06/19 04/01/22 mcg/actuation mist for inhalation (Spiriva Respimat) diclofenac sodium 75 mg 75 mg PO DAILY 03/24/20 04/01/22 tablet,delayed release docusate sodium 100 mg capsule 1 mg PO DAILY 03/24/20 04/01/22 (DOK) duloxetine 60 mg capsule,delayed 60 mg PO DAILY 03/24/20 04/01/22 release famotidine 20 mg tablet 20 mg PO DAILY 03/24/20 04/01/22 Bipap 04/01/22 04/01/22 Home Oxygen 04/01/22 04/01/22 Walkabout Mini Oxygen System 04/01/22 04/01/22 buspirone 10 mg tablet 10 mg PO TID 04/01/22 04/01/22 epinephrine 0.3 mg/0.3 mL 0.3 ml subcut DIRECTED 04/01/22 04/01/22 injection, auto-injector hydrochlorothiazide 12.5 mg tablet 12.5 mg PO DAILY 04/01/22 04/01/22 torsemide 10 mg tablet 10 mg PO DIRECTED 04/01/22 04/01/22 Allergies Allergy/AdvReac Type Severity Reaction Status Date / Time nickel Allergy Intermediate Swelling Verified 10/03/22 07:03 METALS Allergy Intermediate Rash Uncoded 10/02/22 22:17 Review of Systems Review of Systems: All systems reviewed & are unremarkable except as noted in HPI and below PMFSH Past Medical History Medical History Anxiety Asthma Chronic sinusitis Fibromyalgia Gastroesophageal reflux disease Hypertension Morbid obesity Obstructive sleep apnea Patient reports that her most recent sleep study showed no indication for CPAP. Tendonitis Surgical History Surgical History History of bilateral carpal tunnel release x2 History of cervical spinal surgery History of section History of endometrial ablation History of sinus surgery History of tubal ligation (~2009) Anterior ethmoid and maxillary antrostomy. Family History Family History Father Hypertension Colon cancer Mother Alive and well Colon cancer Breast cancer Sibling Colon cancer Social History Social History Social History: Surrogate decision maker: Bisi Pardo Kin, mother. Code status: Full code. Smoking status: Never smoker Second hand tobacco smoke exposure: No Alcohol intake: never Substance use: never Substance use type: does not use Living arrangements: with family Additional living arrangements comments: Lives in [place] with a friend. 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 Gender identity (if verba
[2022-10-03] MEDS: ALBUTEROL SULFATE NEB 2.5 MG/3 ML INH 5 MG INHALATION (02:57)
[2022-10-03 06:09] LABS: Appearance Urine Clear (Clear); Bacteria Urine 1+ /hpf; Bilirubin Urine Negative (Negative); Blood Urine Negative (Negative); Color Urine Yellow (Yellow); Glucose Urine UA Negative (Negative); Ketones Urine Negative (Negative); Leukocyte Esterase Ur Negative LEU/UL (Negative); Need Manual Microscopic Reviewed; Nitrate Urine Negative (Negative); Non Pathogenic Casts 0-2; Protein Urine Trace mg/dL (Negative); RBC Urine 0-2 /hpf (0-2); Squamous Epithelial Cell Urine Moderate /hpf (Few); pH Urine 5.5 (5.0-9.0)
[2022-10-03 06:11] LABS: Add Urine Microscopic? YES; Specific Grav Ur 1.086 (1.001-1.035)
--- NOTE | 2022-10-03 07:01 | ADMGEN ---
This patient, Angie Leos, was admitted to Medical Room 349-01. Patient/family oriented to hospital policies and general routines including ID bracelet, bed and alarms, visiting hours, pain management, procedures, bathroom and other care routines, personal items, smoking policy, room service/diet, and visiting hours. Information on how to activate the Rapid Response Team has been discussed. Patient/Family are encouraged to report perceived risks to care and to ask questions if they do not understand what they are told or what they should do.
[2022-10-03] MEDS: hydroCHLOROthiazide 12.5 MG CAPSULE PO (10:33)
[2022-10-03] MEDS: MONTELUKAST SODIUM 10 MG TABLET PO (10:33)
[2022-10-03] MEDS: amLODIPine BESYLATE 5 MG TABLET PO (10:33)
[2022-10-03] MEDS: LORATADINE 10 MG TABLET PO (10:34)
[2022-10-03] MEDS: busPIRone HCL 10 MG TABLET PO ×3 (10:34→17:01)
[2022-10-03] MEDS: DULoxetine HCL 60 MG CAPSULE.DR PO (10:34)
[2022-10-03] MEDS: FAMOTIDINE 20 MG TABLET PO (10:34)
[2022-10-03] MEDS: DOCUSATE SODIUM 100 MG CAPSULE PO (10:34)
--- NOTE | 2022-10-03 10:44 | PM.IMHP ---
H&P: HPI History of Present Illness Date/Time: 10/03/22 10:44 Chief Complaint: Shortness of breath Narrative: 52-year-old female presenting to the emergency department for evaluation of multiple complaints.? Patient states over the last few days she has had increasing shortness of breath, abdominal bloating and has noticed some blood in her stool.? Patient is normally on 2 L of oxygen by nasal cannula due to chronic asthma.? Patient states that she feels her shortness of breath has worsened.? When patient was ambulating from the waiting room to the ED room she did become hypoxic on her 2 L.? Patient states she is also noticed increased lower abdominal bloating. Review of Systems Review of Systems: All systems reviewed & are unremarkable except as noted in HPI and below PMFSH Past Medical History Medical History (Updated 10/03/22 @ 10:48 by José Manuel Vera MD) Anxiety Asthma Chronic sinusitis Fibromyalgia Gastroesophageal reflux disease Hypertension Morbid obesity Obstructive sleep apnea Patient reports that her most recent sleep study showed no indication for CPAP. Tendonitis Surgical History Surgical History History of bilateral carpal tunnel release x2 History of cervical spinal surgery History of section History of endometrial ablation History of sinus surgery History of tubal ligation (~2009) Anterior ethmoid and maxillary antrostomy. Family History Family History Father Hypertension Colon cancer Mother Alive and well Colon cancer Breast cancer Sibling Colon cancer Social History Social History Social History: Surrogate decision maker: Bisi Sanderson, mother. Code status: Full code. Smoking status: Never smoker Second hand tobacco smoke exposure: No Alcohol intake: never Substance use: never Substance use type: does not use Living arrangements: with family Additional living arrangements comments: Lives in [place] with a friend. 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 Gender identity (if verbalized by the patient): Female Sexual Orientation (if Verbalized by the Patient): Straight or Heterosexual Spiritual care concerns: No Meds Home Medications and Allergies Home Medications Medication Instructions Recorded Confirmed Type amlodipine 5 mg tablet (Norvasc) 5 mg PO DAILY 08/06/19 10/03/22 History budesonide-formoterol HFA 160 2 puff inhalation Q12H 08/06/19 10/03/22 History mcg-4.5 mcg/actuation aerosol inhaler (Symbicort) cetirizine 10 mg tablet (Zyrtec) 10 mg PO DAILY 08/06/19 10/03/22 History montelukast 10 mg tablet 10 mg PO DAILY 08/06/19 10/03/22 History (Singulair) tiotropium bromide 1.25 2 puff inhalation DAILY 08/06/19 10/03/22 History mcg/actuation mist for inhalation (Spiriva Respimat) albuterol sulfate 90 mcg/actuation 2 puff inhalation QID PRN 01/24/20 10/03/22 Rx aerosol inhaler shortness of breath or wheezing #8 grams docusate sodium 100 mg capsule 1 mg PO DAILY 03/24/20 10/03/22 History (DOK) duloxetine 60 mg capsule,delayed 60 mg PO DAILY 03/24/20 10/03/22 History release famotidine 20 mg tablet 20 mg PO DAILY 03/24/20 10/03/22 History albuterol sulfate 2.5 mg/3 mL 2.5 mg (3 mL) inhalation Q4H PRN 07/23/20 10/03/22 Rx (0.083 %) solution for nebulization shortness of breath or wheezing #75 mL azelastine 137 mcg (0.1 %) nasal 1 spray intranasal Q12H #30 mL 10/01/21 10/03/22 Rx spray aerosol Bipap 04/01/22 10/03/22 History Home Oxygen 04/01/22 10/03/22 History Walkabout Mini Oxygen System 04/01/22 10/03/22 History buspirone 10 mg tablet 10 mg PO TID 04/01/22 10/03/22 History epinephrine 0.3 mg/0.3 mL 0.3 ml subcut DIRECTED 04/01/22 10/03/22 History
[2022-10-03] MEDS: ALBUTEROL SULFATE (*SP) AEROSOL 1 PUFF 2 PUFF INHALATION (10:51)
[2022-10-03] MEDS: UMECLIDINIUM BROMIDE 62.5 MCG ELLIPTA 1 PUFF INHALATION (10:52)
[2022-10-03] MEDS: FLUTICASONE/SALMETEROL 115-21 MCG INHALER 1 PUFF 2 PUFF INHALATION (10:52)
[2022-10-03] MEDS: predniSONE 20 MG TABLET 40 MG PO ×2 (12:52→17:01)
[2022-10-03] MEDS: ENOXAPARIN 40 MG/0.4 ML SYRINGE SUB-Q (12:53)
[2022-10-03] MEDS: AZELASTINE HCL NASAL 0.1% 137 MCG/SPR 30 ML BTL 1 SPRAY NASAL ×2 (12:54→21:38)
--- NOTE | 2022-10-03 22:46 | PC.NURSE ---
RT here. Set patient on bipap settings 14/6, 18, 30%. Patient laying in bed HOB at 30 degrees and comfortable. O2 saturation 92%. Constant reminders to remain on O2 monitoring.
[2022-10-04] VITALS (14 sets, daily range): BP systolic 133–145; BP diastolic 66–75; PULSE 81–107; RESP 18–20; TEMP 36.6–37; O2SAT 91–98
[2022-10-04] MEDS: FLUTICASONE/SALMETEROL 115-21 MCG INHALER 1 PUFF 2 PUFF INHALATION ×2 (09:10→20:38)
[2022-10-04] MEDS: UMECLIDINIUM BROMIDE 62.5 MCG ELLIPTA 1 PUFF INHALATION (09:10)
[2022-10-04] MEDS: ALBUTEROL SULFATE (*SP) AEROSOL 1 PUFF 2 PUFF INHALATION ×2 (09:10→20:38)
[2022-10-04] MEDS: amLODIPine BESYLATE 5 MG TABLET PO (09:19)
[2022-10-04] MEDS: MONTELUKAST SODIUM 10 MG TABLET PO (09:19)
[2022-10-04] MEDS: AZELASTINE HCL NASAL 0.1% 137 MCG/SPR 30 ML BTL 1 SPRAY NASAL ×2 (09:19→21:41)
[2022-10-04] MEDS: LORATADINE 10 MG TABLET PO (09:19)
[2022-10-04] MEDS: ENOXAPARIN 40 MG/0.4 ML SYRINGE SUB-Q (09:19)
[2022-10-04] MEDS: predniSONE 20 MG TABLET 40 MG PO ×2 (09:19→16:58)
[2022-10-04] MEDS: DOCUSATE SODIUM 100 MG CAPSULE PO (09:19)
[2022-10-04] MEDS: DULoxetine HCL 60 MG CAPSULE.DR PO (09:19)
[2022-10-04] MEDS: FAMOTIDINE 20 MG TABLET PO (09:20)
[2022-10-04] MEDS: busPIRone HCL 10 MG TABLET PO ×3 (09:20→16:59)
[2022-10-04] MEDS: hydroCHLOROthiazide 12.5 MG CAPSULE PO (09:20)
[2022-10-04] MEDS: TORSEMIDE 10 MG TABLET PO (09:20)
--- NOTE | 2022-10-04 15:09 | PM.IMPN ---
Progress Note: A&P Assessment and Plan (1) Acute respiratory failure: Code(s): J96.00 - Acute respiratory failure, unspecified whether with hypoxia or hypercapnia Status: Acute Assessment and Plan: Likely combination of delivering pneumonia and asthma exacerbation. Continue patient on IV Rocephin azithromycin. Will add prednisone p.o. b.i.d. Florastor exacerbation. Continue home meds (2) Asthma exacerbation: Code(s): J45.901 - Unspecified asthma with (acute) exacerbation Status: Acute Assessment and Plan: Continue home meds. Add prednisone p.o. b.i.d. HPI-Narrative: 52-year-old female presenting to the emergency department for evaluation of multiple complaints.? Patient states over the last few days she has had increasing shortness of breath, abdominal bloating and has noticed some blood in her stool.? Patient is normally on 2 L of oxygen by nasal cannula due to chronic asthma.? Patient states that she feels her shortness of breath has worsened.? When patient was ambulating from the waiting room to the ED room she did become hypoxic on her 2 L.? Patient states she is also noticed increased lower abdominal bloating. 10/04/2022 interval history: Morbidly obese patient presents in with complaint of shortness of breath most likely multifactorial patient is found to have pneumonia and blood culture is positive gram-positive cocci in clusters patient is being treated with ceftriaxone and azithromycin will add vancomycin and do the nasal swab for MRSA patient has also has hypoventilation due to morbid obesity, and history of asthma will also continue bronchodilator, will have a PT OT evaluate the patient patient will benefit with diet consult and physical therapy. (3) Community acquired pneumonia: Code(s): J18.9 - Pneumonia, unspecified organism Status: Acute Assessment and Plan: Continue Rocephin azithromycin. Follow cultures. Taper antibiotics based on cultures (4) Hypertension: Code(s): I10 - Essential (primary) hypertension Status: Acute Assessment and Plan: Continue home meds Plan Full code Lovenox for DVT prophylaxis Subjective Date/time seen: 10/04/22 15:09 Shortness of breath HPI-Narrative: 52-year-old female presenting to the emergency department for evaluation of multiple complaints.? Patient states over the last few days she has had increasing shortness of breath, abdominal bloating and has noticed some blood in her stool.? Patient is normally on 2 L of oxygen by nasal cannula due to chronic asthma.? Patient states that she feels her shortness of breath has worsened.? When patient was ambulating from the waiting room to the ED room she did become hypoxic on her 2 L.? Patient states she is also noticed increased lower abdominal bloating. 10/04/2022 interval history: Morbidly obese patient presents in with complaint of shortness of breath most likely multifactorial patient is found to have pneumonia and blood culture is positive gram-positive cocci in clusters patient is being treated with ceftriaxone and azithromycin will add vancomycin and do the nasal swab for MRSA patient has also has hypoventilation due to morbid obesity, and history of asthma will also continue bronchodilator, will have a PT OT evaluate the patient patient will benefit with diet consult and physical therapy. Review of Systems Review of Systems: All systems reviewed & are unremarkable except as noted in HPI and below Exam Narrative: Morbidly obese Patient is comfortable, NAD HEENT: eyes are clear and none icteric LUNGS: Normal respiratory effort ABD: Obese distended Lower extremities: no edema SKIN: nonjaundiced Neuro: grossly intact. Objective Data Vital Signs Vital Signs: Vital Signs - 24 hr 10/03/22 16:00 10/03/22 21:15 10/03/22 22:35 Temperature 97.6 F Pulse Rate 81 101 H 92 Respiratory Rate 20 20 Blood Pressure 117/57 L Pulse Oximetry 92 96 Oxy
[2022-10-05] VITALS (13 sets, daily range): BP systolic 124–141; BP diastolic 60–74; PULSE 78–100; RESP 18–22; TEMP 36.3–36.7; O2SAT 90–98
[2022-10-05 07:10] LABS: Hematocrit 32.1 % (37.0-47.0); Mean Corpuscular Hemoglobin 20.3 pg (26-34); Mean Corpuscular Volume 72.5 fl (80-100); Mean Platelet Volume 8.8 fl (7.4-10.4); Platelet Count Result 306 k/mm3 (150-375); Red Blood Count 4.43 M/mm3 (4.2-5.4); Red Cell Distribution Width 18.7 % (11.5-14.5); White Blood Count 8.5 K/mm3 (4.5-10.0)
[2022-10-05 07:30] LABS: Blood Urea Nitrogen 17 mg/dL (7-17); Calcium 8.4 mg/dL (8.4-10.2); Carbon Dioxide > 40 mmol/L (22-30); Chloride 94 mmol/L (98-107); Estimated CRCL calculation 135 ml/min; Estimated Glomerular Filt Rate > 60; Glucose 93 mg/dL (65-110); Magnesium 2.2 mg/dL (1.6-2.3); Potassium 3.9 mmol/L (3.4-5.0); Sodium 136 mmol/L (137-145)
[2022-10-05] MEDS: UMECLIDINIUM BROMIDE 62.5 MCG ELLIPTA 1 PUFF INHALATION (07:54)
[2022-10-05] MEDS: FLUTICASONE/SALMETEROL 115-21 MCG INHALER 1 PUFF 2 PUFF INHALATION ×2 (07:56→19:27)
--- NOTE | 2022-10-05 09:10 | PC.NURSE ---
PT reported new onset itching, warmth and redness on both forearms at 0910 on 10/05/22. She stated it started after having received most recent dose of vancomycin antibiotic IV. No other symptoms were reported by the patient. No redness, swelling, hives or any other abnormalities were observed. The infectious disease pharmacist was called to discuss symptoms. It was recommended to decrease infusion rate of vancomycin by half if patient had no additional symptoms. MD was notified at 0935 to inform of rash on forearms and pharmacists recommendation. MD ordered 50 mg Benadryl to be administered prior to administration of antibiotic and monitor patient. Rash was resolved within the hour and patient reported no new symptoms and tolerated administration of vancomycin well. Please see MAR for infusion rate and times.
[2022-10-05] MEDS: busPIRone HCL 10 MG TABLET PO ×3 (09:22→17:35)
[2022-10-05] MEDS: amLODIPine BESYLATE 5 MG TABLET PO (09:22)
[2022-10-05] MEDS: predniSONE 20 MG TABLET 40 MG PO ×2 (09:22→17:36)
[2022-10-05] MEDS: DULoxetine HCL 60 MG CAPSULE.DR PO (09:22)
[2022-10-05] MEDS: MONTELUKAST SODIUM 10 MG TABLET PO (09:23)
[2022-10-05] MEDS: AZELASTINE HCL NASAL 0.1% 137 MCG/SPR 30 ML BTL 1 SPRAY NASAL ×2 (09:23→20:26)
[2022-10-05] MEDS: ENOXAPARIN 40 MG/0.4 ML SYRINGE SUB-Q (09:23)
[2022-10-05] MEDS: DOCUSATE SODIUM 100 MG CAPSULE PO (09:23)
[2022-10-05] MEDS: LORATADINE 10 MG TABLET PO (09:23)
[2022-10-05] MEDS: hydroCHLOROthiazide 12.5 MG CAPSULE PO (09:23)
[2022-10-05] MEDS: FAMOTIDINE 20 MG TABLET PO (09:23)
[2022-10-05] MEDS: diphenhydrAMINE HCl CAP 25 MG CAPSULE 50 MG PO (10:24)
--- NOTE | 2022-10-05 14:32 | PM.IMPN ---
Progress Note: A&P Assessment and Plan (1) Acute respiratory failure: Code(s): J96.00 - Acute respiratory failure, unspecified whether with hypoxia or hypercapnia Status: Acute Assessment and Plan: Likely combination of delivering pneumonia and asthma exacerbation. Continue patient on IV Rocephin azithromycin. Will add prednisone p.o. b.i.d. Florastor exacerbation. Continue home meds (2) Asthma exacerbation: Code(s): J45.901 - Unspecified asthma with (acute) exacerbation Status: Acute Assessment and Plan: Continue home meds. Add prednisone p.o. b.i.d. HPI-Narrative: 52-year-old female presenting to the emergency department for evaluation of multiple complaints.? Patient states over the last few days she has had increasing shortness of breath, abdominal bloating and has noticed some blood in her stool.? Patient is normally on 2 L of oxygen by nasal cannula due to chronic asthma.? Patient states that she feels her shortness of breath has worsened.? When patient was ambulating from the waiting room to the ED room she did become hypoxic on her 2 L.? Patient states she is also noticed increased lower abdominal bloating. 10/05/2022 interval history: Morbidly obese patient presents in with complaint of shortness of breath most likely multifactorial patient is found to have pneumonia and one bottle of blood culture is positive gram-positive cocci in clusters in another 1 is growing Staphylococcus epididymis, patient is being treated with ceftriaxone and azithromycin added vancomycin and the nasal swab for MRSA is pending, patient also has hypoventilation due to morbid obesity, and history of asthma will also continue bronchodilator, will have a PT OT evaluate the patient patient will benefit with diet consult and physical therapy. (3) Community acquired pneumonia: Code(s): J18.9 - Pneumonia, unspecified organism Status: Acute Assessment and Plan: Continue Rocephin azithromycin. Follow cultures. Taper antibiotics based on cultures (4) Hypertension: Code(s): I10 - Essential (primary) hypertension Status: Acute Assessment and Plan: Continue home meds Plan Full code Lovenox for DVT prophylaxis Subjective Date/time seen: 10/05/22 14:32 HPI-Narrative: 52-year-old female presenting to the emergency department for evaluation of multiple complaints.? Patient states over the last few days she has had increasing shortness of breath, abdominal bloating and has noticed some blood in her stool.? Patient is normally on 2 L of oxygen by nasal cannula due to chronic asthma.? Patient states that she feels her shortness of breath has worsened.? When patient was ambulating from the waiting room to the ED room she did become hypoxic on her 2 L.? Patient states she is also noticed increased lower abdominal bloating. 10/05/2022 interval history: Morbidly obese patient presents in with complaint of shortness of breath most likely multifactorial patient is found to have pneumonia and one bottle of blood culture is positive gram-positive cocci in clusters in another 1 is growing Staphylococcus epididymis, patient is being treated with ceftriaxone and azithromycin added vancomycin and the nasal swab for MRSA is pending, patient also has hypoventilation due to morbid obesity, and history of asthma will also continue bronchodilator, will have a PT OT evaluate the patient patient will benefit with diet consult and physical therapy. Review of Systems Review of Systems: All systems reviewed & are unremarkable except as noted in HPI and below Exam Narrative: Morbidly obese Patient is comfortable, NAD HEENT: eyes are clear and none icteric LUNGS: Normal respiratory effort ABD: Obese distended Lower extremities: no edema SKIN: nonjaundiced Neuro: grossly intact. Objective Data Vital Signs Vital Signs: Vital Signs - 24 hr 10/04/22 16:00 10/04/22 20:39 10/04/22 20:39 [place]
[2022-10-05] MEDS: AZITHROMYCIN 250 MG TABLET 500 MG PO (17:33)
[2022-10-05] MEDS: cefTRIAXone 2 GM/NS 100 ML 2 GM/100 ML BAG IVPB (17:35)
[2022-10-06] VITALS (13 sets, daily range): BP systolic 101–130; BP diastolic 38–64; PULSE 78–100; RESP 18–20; TEMP 36.4–36.9; O2SAT 91–100
[2022-10-06 06:42] LABS: Hematocrit 32.7 % (37.0-47.0); Hemoglobin 9.4 g/dL (12.0-15.0); Mean Corpuscular HGB Conc 28.7 g/dl (32-36); Mean Corpuscular Hemoglobin 20.6 pg (26-34); Mean Corpuscular Volume 71.6 fl (80-100); Mean Platelet Volume 8.4 fl (7.4-10.4); Platelet Count Result 285 k/mm3 (150-375); Red Blood Count 4.57 M/mm3 (4.2-5.4); Red Cell Distribution Width 18.9 % (11.5-14.5); White Blood Count 7.9 K/mm3 (4.5-10.0)
[2022-10-06 06:56] LABS: Anion Gap 1 mmol/L (8-16); Blood Urea Nitrogen 20 mg/dL (7-17); Calcium 8.3 mg/dL (8.4-10.2); Carbon Dioxide 39 mmol/L (22-30); Chloride 96 mmol/L (98-107); Estimated CRCL calculation 159 ml/min; Estimated Glomerular Filt Rate > 60; Glucose 101 mg/dL (65-110); Magnesium 2.1 mg/dL (1.6-2.3); Potassium 4.2 mmol/L (3.4-5.0); Sodium 136 mmol/L (137-145)
[2022-10-06] MEDS: AZELASTINE HCL NASAL 0.1% 137 MCG/SPR 30 ML BTL 1 SPRAY NASAL ×2 (08:05→20:49)
[2022-10-06] MEDS: FAMOTIDINE 20 MG TABLET PO (08:06)
[2022-10-06] MEDS: busPIRone HCL 10 MG TABLET PO ×3 (08:06→17:09)
[2022-10-06] MEDS: ENOXAPARIN 40 MG/0.4 ML SYRINGE SUB-Q (08:06)
[2022-10-06] MEDS: DOCUSATE SODIUM 100 MG CAPSULE PO (08:06)
[2022-10-06] MEDS: LORATADINE 10 MG TABLET PO (08:06)
[2022-10-06] MEDS: DULoxetine HCL 60 MG CAPSULE.DR PO (08:06)
[2022-10-06] MEDS: amLODIPine BESYLATE 5 MG TABLET PO (08:06)
[2022-10-06] MEDS: MONTELUKAST SODIUM 10 MG TABLET PO (08:06)
[2022-10-06] MEDS: predniSONE 20 MG TABLET 40 MG PO ×2 (08:06→17:09)
[2022-10-06] MEDS: hydroCHLOROthiazide 12.5 MG CAPSULE PO (08:06)
[2022-10-06] MEDS: FLUTICASONE/SALMETEROL 115-21 MCG INHALER 1 PUFF 2 PUFF INHALATION ×2 (08:30→21:07)
[2022-10-06] MEDS: UMECLIDINIUM BROMIDE 62.5 MCG ELLIPTA 1 PUFF INHALATION (08:30)
[2022-10-06] MEDS: diphenhydrAMINE HCl CAP 25 MG CAPSULE 50 MG PO (09:21)
[2022-10-06] MEDS: AZITHROMYCIN 250 MG TABLET 500 MG PO (12:12)
[2022-10-06] MEDS: cefTRIAXone 2 GM/NS 100 ML 2 GM/100 ML BAG IVPB (12:12)
--- NOTE | 2022-10-06 13:50 | PM.IMPN ---
Progress Note: A&P Assessment and Plan (1) Acute respiratory failure: Code(s): J96.00 - Acute respiratory failure, unspecified whether with hypoxia or hypercapnia Status: Acute Assessment and Plan: Likely combination of delivering pneumonia and asthma exacerbation. Continue patient on IV Rocephin azithromycin. Will add prednisone p.o. b.i.d. Florastor exacerbation. Continue home meds (2) Asthma exacerbation: Code(s): J45.901 - Unspecified asthma with (acute) exacerbation Status: Acute Assessment and Plan: Continue home meds. Add prednisone p.o. b.i.d. HPI-Narrative: 52-year-old female presenting to the emergency department for evaluation of multiple complaints.? Patient states over the last few days she has had increasing shortness of breath, abdominal bloating and has noticed some blood in her stool.? Patient is normally on 2 L of oxygen by nasal cannula due to chronic asthma.? Patient states that she feels her shortness of breath has worsened.? When patient was ambulating from the waiting room to the ED room she did become hypoxic on her 2 L.? Patient states she is also noticed increased lower abdominal bloating. 10/06/2022 interval history: Morbidly obese patient presents in with complaint of shortness of breath most likely multifactorial patient is found to have pneumonia and one bottle of blood culture is positive gram-positive cocci in clusters in another 1 is growing Staphylococcus epididymis, patient is being treated with ceftriaxone and azithromycin added vancomycin and the nasal swab for MRSA is pending, patient also has hypoventilation due to morbid obesity, and history of asthma will also continue bronchodilator, repeat chest x-ray today shows improvement in pneumonia however patient still short winded and complains of cough, monitor patient 1 more day and possibly discharge tomorrow, will have a PT OT evaluate the patient patient will benefit with diet consult and physical therapy. (3) Community acquired pneumonia: Code(s): J18.9 - Pneumonia, unspecified organism Status: Acute Assessment and Plan: Continue Rocephin azithromycin. Follow cultures. Taper antibiotics based on cultures (4) Hypertension: Code(s): I10 - Essential (primary) hypertension Status: Acute Assessment and Plan: Continue home meds Plan Full code Lovenox for DVT prophylaxis Subjective Date/time seen: 10/06/22 13:50 HPI-Narrative: 52-year-old female presenting to the emergency department for evaluation of multiple complaints.? Patient states over the last few days she has had increasing shortness of breath, abdominal bloating and has noticed some blood in her stool.? Patient is normally on 2 L of oxygen by nasal cannula due to chronic asthma.? Patient states that she feels her shortness of breath has worsened.? When patient was ambulating from the waiting room to the ED room she did become hypoxic on her 2 L.? Patient states she is also noticed increased lower abdominal bloating. 10/06/2022 interval history: Morbidly obese patient presents in with complaint of shortness of breath most likely multifactorial patient is found to have pneumonia and one bottle of blood culture is positive gram-positive cocci in clusters in another 1 is growing Staphylococcus epididymis, patient is being treated with ceftriaxone and azithromycin added vancomycin and the nasal swab for MRSA is pending, patient also has hypoventilation due to morbid obesity, and history of asthma will also continue bronchodilator, repeat chest x-ray today shows improvement in pneumonia however patient still short winded and complains of cough, monitor patient 1 more day and possibly discharge tomorrow, will have a PT OT evaluate the patient patient will benefit with diet consult and physical therapy. Review of Systems Review of Systems: All systems reviewed & are unremarkable except as noted in HPI and below Exam [place]
[2022-10-06] MEDS: ALBUTEROL SULFATE (*SP) AEROSOL 1 PUFF 2 PUFF INHALATION (21:06)
[2022-10-07] VITALS: PULSE 78
[2022-10-07 04:00] VITALS: PULSE 76
[2022-10-07 05:38] VITALS: BP 121/60; PULSE 78; RESP 22; TEMP 36.3; O2SAT 95
[2022-10-07 06:53] LABS: Hematocrit 35.8 % (37.0-47.0); Hemoglobin 9.9 g/dL (12.0-15.0); Mean Corpuscular HGB Conc 27.7 g/dl (32-36); Mean Corpuscular Hemoglobin 19.8 pg (26-34); Mean Corpuscular Volume 71.7 fl (80-100); Mean Platelet Volume 8.7 fl (7.4-10.4); Platelet Count Result 296 k/mm3 (150-375); Red Blood Count 4.99 M/mm3 (4.2-5.4); Red Cell Distribution Width 18.9 % (11.5-14.5); White Blood Count 8.2 K/mm3 (4.5-10.0)
[2022-10-07 07:07] LABS: Blood Urea Nitrogen 19 mg/dL (7-17); Calcium 8.8 mg/dL (8.4-10.2); Carbon Dioxide > 40 mmol/L (22-30); Chloride 96 mmol/L (98-107); Estimated CRCL calculation 118 ml/min; Estimated Glomerular Filt Rate > 60; Glucose 91 mg/dL (65-110); Magnesium 2.2 mg/dL (1.6-2.3); Potassium 4.3 mmol/L (3.4-5.0); Sodium 138 mmol/L (137-145)
[2022-10-07 08:00] VITALS: PULSE 89; O2SAT 97
[2022-10-07] MEDS: ALBUTEROL SULFATE (*SP) AEROSOL 1 PUFF 2 PUFF INHALATION (09:01)
[2022-10-07 09:02] VITALS: O2SAT 97
[2022-10-07] MEDS: FLUTICASONE/SALMETEROL 115-21 MCG INHALER 1 PUFF 2 PUFF INHALATION (09:02)
[2022-10-07] MEDS: UMECLIDINIUM BROMIDE 62.5 MCG ELLIPTA 1 PUFF INHALATION (09:02)
[2022-10-07 09:03] VITALS: O2SAT 97
[2022-10-07] MEDS: predniSONE 20 MG TABLET 40 MG PO (09:09)
[2022-10-07] MEDS: LORATADINE 10 MG TABLET PO (09:09)
[2022-10-07] MEDS: amLODIPine BESYLATE 5 MG TABLET PO (09:09)
[2022-10-07] MEDS: DULoxetine HCL 60 MG CAPSULE.DR PO (09:09)
[2022-10-07] MEDS: busPIRone HCL 10 MG TABLET PO ×2 (09:09→12:52)
[2022-10-07] MEDS: MONTELUKAST SODIUM 10 MG TABLET PO (09:09)
[2022-10-07] MEDS: hydroCHLOROthiazide 12.5 MG CAPSULE PO (09:09)
[2022-10-07] MEDS: AZELASTINE HCL NASAL 0.1% 137 MCG/SPR 30 ML BTL 1 SPRAY NASAL (09:09)
[2022-10-07] MEDS: FAMOTIDINE 20 MG TABLET PO (09:09)
[2022-10-07] MEDS: DOCUSATE SODIUM 100 MG CAPSULE PO (09:09)
[2022-10-07] MEDS: ENOXAPARIN 40 MG/0.4 ML SYRINGE SUB-Q (09:10)
--- NOTE | 2022-10-07 11:13 | PM.DS ---
DS: Admitting Diagnosis Discharge Date 10/07/2022 Admitting Diagnosis Shortness of breath DS: Discharge Diagnosis Discharge Diagnosis (1) Acute respiratory failure: Code(s): J96.00 - Acute respiratory failure, unspecified whether with hypoxia or hypercapnia Status: Acute Assessment and Plan: Likely combination of delivering pneumonia and asthma exacerbation. Continue patient on IV Rocephin azithromycin. Will add prednisone p.o. b.i.d. Florastor exacerbation. Continue home meds (2) Asthma exacerbation: Code(s): J45.901 - Unspecified asthma with (acute) exacerbation Status: Acute Assessment and Plan: Continue home meds. Add prednisone p.o. b.i.d. HPI-Narrative: 52-year-old female presenting to the emergency department for evaluation of multiple complaints.? Patient states over the last few days she has had increasing shortness of breath, abdominal bloating and has noticed some blood in her stool.? Patient is normally on 2 L of oxygen by nasal cannula due to chronic asthma.? Patient states that she feels her shortness of breath has worsened.? When patient was ambulating from the waiting room to the ED room she did become hypoxic on her 2 L.? Patient states she is also noticed increased lower abdominal bloating. 10/06/2022 interval history: Morbidly obese patient presents in with complaint of shortness of breath most likely multifactorial patient is found to have pneumonia and one bottle of blood culture is positive gram-positive cocci in clusters in another 1 is growing Staphylococcus epididymis, patient is being treated with ceftriaxone and azithromycin added vancomycin and the nasal swab for MRSA is pending, patient also has hypoventilation due to morbid obesity, and history of asthma will also continue bronchodilator, repeat chest x-ray today shows improvement in pneumonia however patient still short winded and complains of cough, monitor patient 1 more day and possibly discharge tomorrow, will have a PT OT evaluate the patient patient will benefit with diet consult and physical therapy. (3) Community acquired pneumonia: Code(s): J18.9 - Pneumonia, unspecified organism Status: Acute Assessment and Plan: Continue Rocephin azithromycin. Follow cultures. Taper antibiotics based on cultures (4) Hypertension: Code(s): I10 - Essential (primary) hypertension Status: Acute Assessment and Plan: Continue home meds Plan Full code Lovenox for DVT prophylaxis DS: Summary Hospital Course Reason for hospitalization: Shortness of breath Narrative: 52-year-old female presenting to the emergency department for evaluation of multiple complaints.? Patient states over the last few days she has had increasing shortness of breath, abdominal bloating and has noticed some blood in her stool.? Patient is normally on 2 L of oxygen by nasal cannula due to chronic asthma.? Patient states that she feels her shortness of breath has worsened.? When patient was ambulating from the waiting room to the ED room she did become hypoxic on her 2 L.? Patient states she is also noticed increased lower abdominal bloating. Hospital Course: Morbidly obese patient presents in with complaint of shortness of breath most likely multifactorial patient is found to have pneumonia and one bottle of blood culture is positive gram-positive cocci in clusters in another 1 is growing Staphylococcus epididymis,? patient is being treated with ceftriaxone and azithromycin added? vancomycin and the nasal swab for MRSA is pending,? patient also has hypoventilation due to morbid obesity, and history of asthma will also continue bronchodilator, repeat chest x-ray today shows improvement in pneumonia however patient still short winded and complains of cough, monitor patient 1 more day and possibly discharge tomorrow,? will have a PT OT evaluate the patient patient will benefit with diet consult and physical therapy.? Today p
[2022-10-07] MEDS: AZITHROMYCIN 250 MG TABLET 500 MG PO (12:51)
[2022-10-07] MEDS: cefTRIAXone 2 GM/NS 100 ML 2 GM/100 ML BAG IVPB (12:53)
== END 2022-10-07 15:00 | disposition home or self-care (01) | DRG 194 ==
LOC: ANHED 10-03 04:50 → ANH3MED 10-03 06:20
PROVIDERS: Admitting Provider Internal Medicine; Emergency Provider Emergency Medicine; Visit Provider Family Medicine
DX: J18.9 Pneumonia, unspecified organism (principal); E66.2 Morbid (severe) obesity with alveolar hypoventilation; J45.901 Unspecified asthma with (acute) exacerbation; Z68.44 Body mass index [BMI] 60.0-69.9, adult; R09.02 Hypoxemia; B95.7 Other staphylococcus as the cause of diseases classified elsewhere; I10 Essential (primary) hypertension; K21.9 Gastro-esophageal reflux disease without esophagitis; M79.7 Fibromyalgia; F41.9 Anxiety disorder, unspecified; Z99.81 Dependence on supplemental oxygen; Z22.322 Carrier or suspected carrier of Methicillin resistant Staphylococcus aureus
CPT/HCPCS: 36415; 71046; 71275; 74177; 80048; 80053; 81001; 83735; 83880; 84484; 85025; 85027; 85380; 85610; 85730; 87040; 87081; 87086; 87088; 87147; 87181; 87186; 93005; 94002; 94003; 94640; 96365; 96372; 96375; 96376; 99285; A9270; G0378; J0456; J0696; J1650; J3370; J7512; Q9967

== ENCOUNTER 2022-10-19 22:48 | Observation (INO) | payer MEDICARE, MEDICAID, SELFPAY ==
--- NOTE | ~2022-10-19 | XR_ITS ---
Clinical Indication: Shortness of breath PA and lateral views of the chest: Comparison: 10/06/2022 Findings: The lungs are clear, without evidence of focal consolidation or pleural effusion. Cardiome diastinal silhouette is within normal limits. Chronic bilateral rib fracture deformities are noted. Impression: Clear lungs. Reviewed, dictated and finalized at location . Impression: Clear lungs.
--- NOTE | ~2022-10-19 | US_ITS ---
EXAMINATION:US venous doppler LE BI INDICATION:Leg edema TECHNIQUE: Multiple grayscale, color flow and Doppler images of the right and left lower extremity de ep venous systems were obtained and reviewed. COMPARISON:07/09/2008 FINDINGS: The common femoral, superficial femoral and popliteal veins demonstrate normal respiratory variation, augmentation and compressibility. Color flow is also seen within the posterior tibial, pe roneal, greater saphenous and profunda veins. There is a left Mullins's cyst measuring 4.1 x 2.5 x 1.2 cm. IMPRESSION: 1: No lower extremity deep venous thrombosis. Reviewed, dictated and finalized at location A.
[2022-10-19 23:09] VITALS: BP 144/79; PULSE 103; RESP 14; TEMP 36.7; O2SAT 97
--- NOTE | 2022-10-19 23:09 | ECG_ITS ---
Measurements Intervals [place] Rate: 92 P: 64 FL: 158 QRS: 30 QRSD: 90 T: 22 QT: 311 QTc: 386 Interpretive Statements BASELINE ARTIFACT/POOR QUALITY ELECTROCARDIOGRAM SINUS RHYTHM LOW QRS VOLTAGE NONSPECIFIC T-WAVE ABNORMALITY COMPARED TO ECG 10/02/2022 22:27:49 NO OBVIOUS DIFFERENCE Electronically Signed On 10-20-2022 7:11:59 CDT by Michael Sinclair M.D.
[2022-10-19 23:25] LABS: Basophils Percent Auto 0.4 % (0.2-1.2); Eosinophils Absolute Auto 0.2 K/mm3 (0-0.3); Eosinophils Percent Auto 2.6 % (0-4.4); Hematocrit 29.8 % (37.0-47.0); Hemoglobin 8.2 g/dL (12.0-15.0); Immature Granulocyte Absolute 0.04 K/mm3 (0.00-0.031); Immature Granulocyte Percent A 0.5 % (0-0.5); Lymphocytes Absolute Auto 1.61 K/mm3 (0.9-3.2); Lymphocytes Percent Auto 20.5 % (18.3-44.2); Mean Corpuscular HGB Conc 27.5 g/dl (32-36); Mean Corpuscular Hemoglobin 20.4 pg (26-34); Mean Corpuscular Volume 74.1 fl (80-100); Mean Platelet Volume 9.1 fl (7.4-10.4); Monocytes Absolute Auto 0.8 K/mm3 (0.1-0.6); Monocytes Percent Auto 10.5 % (2.6-8.5); Neutrophils Absolute Auto 5.1 K/mm3 (1.3-6.7); Neutrophils Percent Auto 65.5 % (45.5-73.1); Platelet Count Result 256 k/mm3 (150-375); Red Blood Count 4.02 M/mm3 (4.2-5.4); Red Cell Distribution Width 20.3 % (11.5-14.5); White Blood Count 7.8 K/mm3 (4.5-10.0)
[2022-10-19 23:27] VITALS: O2SAT 100
[2022-10-19 23:42] LABS: Alanine Aminotransferase 23 U/L (6-35); Albumin Level 3.4 g/dL (3.5-5.1); Alkaline Phosphatase 122 U/L (38-126); Aspartate Amino Transferase 17 U/L (14-36); Bilirubin,Total 0.4 mg/dL (0.2-1.3); Blood Urea Nitrogen 18 mg/dL (7-17); Calcium 7.9 mg/dL (8.4-10.2); Carbon Dioxide > 40 mmol/L (22-30); Chloride 96 mmol/L (98-107); Estimated Glomerular Filt Rate > 60; Glucose 101 mg/dL (65-110); Partial Thromboplastin Time 23.6 SECONDS (22.3-36.8); Sodium 136 mmol/L (137-145)
[2022-10-19 23:53] VITALS: PULSE 97; RESP 19; O2SAT 100
[2022-10-19 23:54] LABS: NT Pro B Type Natriuretic Pept 102 pg/mL (19.9-100); Troponin I < 0.012 ng/mL (0.000-0.034)
[2022-10-20] VITALS (39 sets, daily range): BP systolic 75–168; BP diastolic 44–93; PULSE 85–122; RESP 11–32; TEMP 36.1–36.2; O2SAT 87–100; BMI 66.1
[2022-10-20 01:13] LABS: Anisocytosis 1+ (NORMAL); Hypochromasia 2+ (NORMAL); Platelet Estimate Adequate (Adequate); Poikilocytosis 1+ (NORMAL)
[2022-10-20 01:14] LABS: Microcytosis 1+ (NORMAL); Schistocytes None Seen (NORMAL); Stomatocytes 1+ (NORMAL)
[2022-10-20] MEDS: methylPREDNISolone SOD SUCC 125 MG VIAL IV PUSH (01:49)
[2022-10-20] MEDS: MAGNESIUM SULF 2 GM/WATER 50ML 2 GM/50 ML BAG IVPB (01:50)
[2022-10-20] MEDS: IPRATROPIUM BR 0.02% INH SOLN 0.5 MG/2.5 ML VIAL 1.5 MG INHALATION (02:26)
[2022-10-20] MEDS: ALBUTEROL SULFATE NEB 2.5 MG/3 ML INH 10 MG INHALATION (02:26)
--- NOTE | 2022-10-20 04:39 | ED.GENADULT ---
HPI - General Adult General Chief complaint: Shortness of Breath/Dyspnea Stated complaint: sob, low o2 sat Time Seen by Provider: 10/20/22 00:11 History of Present Illness HPI narrative: this is a 52-year-old female with history of severe COPD and chronic respiratory failure then ED for difficulty breathing. Patient was discharged from the hospital approximately a week ago after being treated for pneumonia. She was doing well at home and not requiring supplemental oxygen until earlier today. She was saturating 88% on room air at that time. She then came to the hospital for further management. patient has been taking her breathing treatments with no relief.Patient denies fever, chills, productive cough. Related Data Home Medications Medication Instructions Recorded Confirmed amlodipine 5 mg tablet (Norvasc) 5 mg PO DAILY 08/06/19 10/03/22 budesonide-formoterol HFA 160 2 puff inhalation Q12H 08/06/19 10/03/22 mcg-4.5 mcg/actuation aerosol inhaler (Symbicort) cetirizine 10 mg tablet (Zyrtec) 10 mg PO DAILY 08/06/19 10/03/22 montelukast 10 mg tablet 10 mg PO DAILY 08/06/19 10/03/22 (Singulair) tiotropium bromide 1.25 2 puff inhalation DAILY 08/06/19 10/03/22 mcg/actuation mist for inhalation (Spiriva Respimat) docusate sodium 100 mg capsule 1 mg PO DAILY 03/24/20 10/03/22 (DOK) duloxetine 60 mg capsule,delayed 60 mg PO DAILY 03/24/20 10/03/22 release famotidine 20 mg tablet 20 mg PO DAILY 03/24/20 10/03/22 Bipap 04/01/22 10/03/22 Home Oxygen 04/01/22 10/03/22 [facility] Mini Oxygen System 04/01/22 10/03/22 buspirone 10 mg tablet 10 mg PO TID 04/01/22 10/03/22 epinephrine 0.3 mg/0.3 mL 0.3 ml subcut DIRECTED 04/01/22 10/03/22 injection, auto-injector hydrochlorothiazide 12.5 mg tablet 12.5 mg PO DAILY 04/01/22 10/03/22 torsemide 10 mg tablet 10 mg PO DAILY PRN Dyspnea 04/01/22 10/03/22 Allergies Allergy/AdvReac Type Severity Reaction Status Date / Time nickel Allergy Intermediate Swelling Verified 10/19/22 23:29 METALS Allergy Intermediate Rash Uncoded 10/19/22 23:29 [facility] Past Medical History Medical History Anxiety Asthma Chronic sinusitis Fibromyalgia Gastroesophageal reflux disease Hypertension Morbid obesity Obstructive sleep apnea Patient reports that her most recent sleep study showed no indication for CPAP. Tendonitis Surgical History Surgical History History of bilateral carpal tunnel release x2 History of cervical spinal surgery History of section History of endometrial ablation History of sinus surgery History of tubal ligation (~2009) Anterior ethmoid and maxillary antrostomy. Family History Family History Father Hypertension Colon cancer Mother Alive and well Colon cancer Breast cancer Sibling Colon cancer Social History Social History Social History: Surrogate decision maker: Bisi Sanderson, mother. Code status: Full code. Smoking status: Never smoker Second hand tobacco smoke exposure: No Alcohol intake: former Substance use: never Substance use type: does not use Lack of Transportation: No Lack of Food: Never True Current Housing: I Have Housing Concerned About Future Housing: No Difficulty Paying Gas/Electric Bills: No Difficulty Paying for Meds: No Currently Unemployed: No Education: Decline to Answer Difficulty w/ Childcare or Family Care: No Living arrangements: with family Additional living arrangements comments: Lives in [place] with a friend. 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 Gender identity (if verbalized by the patient): Female Sexual Orientation (if Verbalized by the Patient): Straight or He
--- NOTE | 2022-10-20 04:53 | PM.IMHP ---
H&P: HPI History of Present Illness Date/Time: 10/20/22 04:53 Chief Complaint: Shortness of breath Narrative: This is a 52-year-old female with past medical history significant for morbid obesity, hypertension, chronic hypoxic respiratory failure, obstructive sleep apnea on BiPAP at nighttime, fibromyalgia, GERD. Patient recently discharged from [facility] after she was treated for pneumonia she has concluded course of antibiotics and p.o. steroids however noted shortness of breath and oxygen saturation on in the 70% range states that she uses oxygen only when she needs it uses BiPAP at nighttime and noted that her saturation increased to 80% decided to come to the emergency room. Patient denies any fevers, rigors, chills, nausea, vomiting, diarrhea, cough, sputum production. Preliminary chest x-ray shows improvement of infiltrates. Patient is currently requiring 2 L of oxygen by nasal cannula and saturating at 95%. Patient is been admitted for further evaluation management and treatment. Review of Systems Review of Systems: Shortness of breath, low oxygen saturation. Constitutional: Constitutional: Denies chills, Denies fatigue, Denies fever(s), Denies lethargy, Denies malaise, Denies night sweats, Denies poor appetite and Denies weakness Eyes: Eyes: Denies change in vision ENT: Denies dysphagia and Denies odynophagia Cardiovascular: Cardiovascular: Denies chest pain, Denies leg edema, Denies lightheadedness and Denies palpitations Respiratory: Respiratory: Denies change in phlegm color, Denies chest congestion, Denies cough, Denies excessive phlegm production, Denies pain on inspiration, Reports dyspnea and Reports dyspnea on exertion Gastrointestinal: Gastrointestinal: Denies abdominal pain, Denies dyspepsia, Denies heartburn, Denies diarrhea, Denies nausea, Denies odynophagia and Denies vomiting Genitourinary: Genitourinary: Denies dysuria Musculoskeletal: Musculoskeletal: Denies back pain, Denies joint swelling and Denies muscle weakness Integumentary/Breasts: Skin/Breast: Denies rash Neurologic: Denies focal weakness and Denies Sensory deficit (Neuro) Psychiatric: Psychiatric: Reports no additional psychiatric complaints and Reports as per HPI Endocrine: Endocrine: Denies cold intolerance, Denies flushing, Denies heat intolerance, Denies polyphagia, Denies polydipsia and Denies palpitations Hematologic/Lymphatic: Hematologic/Lymphatic: Reports no additional hematologic/lymphatic complaints and Reports as per HPI Allergic/Immunologic: Allergic/Immunologic: Reports no additional allergic/immunologic complaints and Reports as per HPI [facility] Past Medical History Medical History Anxiety Asthma Chronic sinusitis Fibromyalgia Gastroesophageal reflux disease Hypertension Morbid obesity Obstructive sleep apnea Patient reports that her most recent sleep study showed no indication for CPAP. Tendonitis Surgical History Surgical History History of bilateral carpal tunnel release x2 History of cervical spinal surgery History of section History of endometrial ablation History of sinus surgery History of tubal ligation (~2009) Anterior ethmoid and maxillary antrostomy. Family History Family History Father Hypertension Colon cancer Mother Alive and well Colon cancer Breast cancer Sibling Colon cancer Social History Social History Social History: Surrogate decision maker: Bisi Sanderson, mother. Code status: Full code. Smoking status: Never smoker Second hand tobacco smoke exposure: No Alcohol intake: former Substance use: never Substance use type: does not use Lack of Transportation: No Lack of Food: Never True Current Housing: I Have Housing Concerned Ab
[2022-10-20] MEDS: hydroCHLOROthiazide 12.5 MG CAPSULE PO (09:16)
[2022-10-20] MEDS: FAMOTIDINE 20 MG TABLET PO (09:17)
[2022-10-20] MEDS: LORATADINE 10 MG TABLET PO (09:17)
[2022-10-20] MEDS: DULoxetine HCL 60 MG CAPSULE.DR PO (09:17)
[2022-10-20] MEDS: methylPREDNISolone SOD SUCC 40 MG VIAL IV PUSH ×2 (09:17→20:52)
[2022-10-20] MEDS: amLODIPine BESYLATE 5 MG TABLET PO (09:17)
[2022-10-20] MEDS: busPIRone HCL 10 MG TABLET PO ×3 (09:17→17:13)
[2022-10-20] MEDS: MONTELUKAST SODIUM 10 MG TABLET PO (09:17)
[2022-10-20] MEDS: AZELASTINE HCL NASAL 0.1% 137 MCG/SPR 30 ML BTL 1 SPRAY NASAL ×2 (09:18→20:52)
--- NOTE | 2022-10-20 13:41 | PM.IMPN ---
Progress Note: A&P Assessment and Plan (1) Acute and chronic respiratory failure with hypoxia: Code(s): J96.21 - Acute and chronic respiratory failure with hypoxia Status: Acute Assessment and Plan: In the ED patient was found to have O2 saturation at 88%. Supplemental oxygen by nasal cannula Wean oxygen to maintain O2 saturation of > 90% Patient does not wear oxygen at home but states that she does use BiPAP at night Continue to monitor Breathing treatments scheduled Supportive care (2) Asthma exacerbation: Code(s): J45.901 - Unspecified asthma with (acute) exacerbation Status: Acute Assessment and Plan: Chest x-ray with no acute cardiopulmonary process. Patient recently treated for pneumonia approximately 2 weeks ago. Patient requiring 2 L of O2. Wean to maintain oxygen saturation > 90% DuoNebs q.6 hours Solu-Medrol 40 mg q.12 (3) Hypertension: Code(s): I10 - Essential (primary) hypertension Status: Acute Assessment and Plan: Continue home meds Continue to monitor (4) Obstructive sleep apnea: Code(s): G47.33 - Obstructive sleep apnea (adult) (pediatric) Status: Chronic Assessment and Plan: BiPAP at nighttime (5) Morbid obesity with BMI of 50.0-59.9, adult: Code(s): E66.01 - Morbid (severe) obesity due to excess calories; Z68.43 - Body mass index [BMI] 50.0-59.9, adult Status: Chronic Assessment and Plan: Lifestyle and diet modifications 1800 calorie restricted diet (6) Lower extremity edema: Code(s): R60.0 - Localized edema Status: Acute Assessment and Plan: Has history of getting edematous and takes PRN torsemide will order echo IV lasix 20 mg bid. Subjective Date/time seen: 10/20/22 13:41 Interval history: Patient states that she is very uncomfortable and when she tries to move she feels as if she can not catch her breath. Patient is not experiencing cough or chest pain, nausea or vomiting. She is having some lower extremity edema that is not improved with elevation. Patient was recently treated for pneumonia at [place] and discharge 2 weeks ago. Review of Systems Review of Systems: All systems reviewed & are unremarkable except as noted in HPI and below Exam Narrative: GENERAL: Comfortable, no acute distress HENMT: moist mucous membranes EYES: EOM intact b/l NECK: no lymphadenopathy RESPIRATORY: clear to auscultation but when patient sits up she makes wheezing noises that are not heard in her lungs CARDIO: RRR GI: soft, nontender, bowel sounds present SKIN: no rashes EXTREMITIES: +2 pedal edema, no redness or tenderness in the lower extremities Objective Data Vital Signs Vital Signs: Vital Signs - 24 hr 10/19/22 23:09 10/19/22 23:27 10/19/22 23:53 Temperature 98.0 F Pulse Rate 103 H 97 Respiratory Rate 14 19 Blood Pressure 144/79 H Pulse Oximetry 97 100 100 Oxygen Delivery Room Air Nasal Cannula Oxygen Flow Rate 2 10/20/22 00:00 10/20/22 00:18 10/20/22 00:40 Temperature Pulse Rate 92 94 98 Respiratory Rate 24 H 20 22 H Blood Pressure 114/48 L Pulse Oximetry 100 100 98 Oxygen Delivery Oxygen Flow Rate 10/20/22 00:57 10/20/22 01:05 10/20/22 01:22 Temperature Pulse Rate 93 90 97 Respiratory Rate 25 H 24 H 22 H Blood Pressure Pulse Oximetry 98 100 98 Oxygen Delivery Oxygen Flow Rate 10/20/22 01:35 10/20/22 01:47 10/20/22 02:32 Temperature Pulse Rate 93 107 H 100 Respiratory Rate 18 26 H 22 H Blood Pressure 113/52 L Pulse Oximetry 98 97 Oxygen Delivery Oxygen Flow Rate 10/20/22 02:00 10/20/22 02:15 10/20/22 02:30 Temperature Pulse Rate 100 93 93 Respiratory Rate 22 H 23 H 18 Blood Pressure Pulse Oximetry 96 98 98 Oxygen Delivery Oxygen Flow Rate 10/20/22 02:45 10/20/22 03:00 10/20/22 03:02 Temperatu
[2022-10-20] MEDS: IPRATROPIUM BR 0.02% INH SOLN 0.5 MG/2.5 ML VIAL INHALATION ×2 (14:08→20:14)
[2022-10-20] MEDS: FLUTICASONE/SALMETEROL 115-21 MCG INHALER 1 PUFF 2 PUFF INHALATION ×2 (14:09→20:15)
[2022-10-20] MEDS: FUROSEMIDE INJ 40 MG/4 ML VIAL 20 MG IV PUSH (17:13)
[2022-10-20] MEDS: WATER FOR IRRIGATION, STERILE 1,000 ML BOTTLE 1000 ML (20:57)
[2022-10-21] VITALS (18 sets, daily range): BP systolic 133–137; BP diastolic 62–63; PULSE 71–103; RESP 16–20; TEMP 35.8–36.2; O2SAT 94–98
--- NOTE | 2022-10-21 | ECHO_ITS ---
Patient Info Name: Angie Leos Age: 52 years : 1970 Gender: Female Ht: 62 in Wt: 361 lbs BSA: 2.80 m2 HR: 102 bpm BP: 124 / 93 mmHg Heart Rhythm: Sinus Rhythm Technical Quality: Poor Exam Date: 10/21/2022 9:36 AM Exam Location: [facility] Exam Room: 309 Patient Status: Inpatient Admit Date: 10/20/2022 Staff Ordering Physician: Joi Shrestha PA-C Health Program Director: Marissa Jama RDCS Attending Provider: Ese Abdi MD Referring Physician: Fady DUARTE; Exam Type: CA echo dop color flow w con Study Info Indications - GAGE Complete two-dimensional, color flow and Doppler transthoracic echocardiogram is performed with contrast to opacify the left ventricle and to improve the deliniation of the left ventricle endocardial borders. Contrast/Agitated Saline Contrast/Ag. Saline: Definity Amount: 3.00 ml Administered By: Marissa Jama [facility] Existing IV Access: Yes IV Access Condition: patent with no signs of infiltration Reason for Poor Study: patient body habitus Summary 1. Technically difficult study with limited views. 2. Left ventricular chamber dimension is normal. 3. Left ventricular systolic function is normal, estimated at 65-70%. 4. There is trace mitral valve regurgitation. 5. There is trace tricuspid valve regurgitation. 6. Normal inferior vena cava with >50% collapse upon inspiration consistent with normal right atrial pressure, 3 mmHg. Left Ventricle Left ventricular chamber dimension is normal. Left ventricular systolic function is normal, estimated at 65-70%. Right Ventricle Right ventricular chamber dimension is not well visualized. Left Atria Left atrial chamber dimension is normal. Right Atria Right atrial chamber dimension is normal. Atrial Septum Intact interatrial septum visualized by color flow imaging. Aortic Valve The aortic valve is not well visualized. There is no aortic valve stenosis. There is no aortic valve regurgitation. Pulmonic Valve The pulmonic valve is not well visualized. Mitral Valve The mitral valve has not well visualized. There is trace mitral valve regurgitation. Tricuspid Valve There is trace tricuspid valve regurgitation. Pericardium/Pleural There is trivial pericardial effusion. Inferior Vena Cava Normal inferior vena cava with >50% collapse upon inspiration consistent with normal right atrial pressure, 3 mmHg. Aorta The aortic root size at the sinus of Valsalva is normal. Left Ventricular Outflow Tract Name Value Normal LVOT 2D LVOT Diameter 2.15 cm LVOT Doppler LVOT Peak Gradient 7 mmHg LVOT Mean Gradient 4 mmHg LVOT VTI 28.45 cm LVOT VTI/AV VTI Ratio 0.82 LVOT Stroke Volume 102.94 ml LVOT CO 22.08 l/min LVOT CI 7.89 L/min/m2 Pulmonic Valve Na
[2022-10-21] MEDS: IPRATROPIUM BR 0.02% INH SOLN 0.5 MG/2.5 ML VIAL INHALATION ×4 (03:02→21:21)
[2022-10-21 06:08] LABS: Basophils Percent Auto 0.1 % (0.2-1.2); Hematocrit 30.4 % (37.0-47.0); Hemoglobin 8.4 g/dL (12.0-15.0); Immature Granulocyte Absolute 0.09 K/mm3 (0.00-0.031); Immature Granulocyte Percent A 0.6 % (0-0.5); Lymphocytes Absolute Auto 0.72 K/mm3 (0.9-3.2); Lymphocytes Percent Auto 4.8 % (18.3-44.2); Mean Corpuscular HGB Conc 27.6 g/dl (32-36); Mean Corpuscular Hemoglobin 20.6 pg (26-34); Mean Corpuscular Volume 74.7 fl (80-100); Mean Platelet Volume 8.7 fl (7.4-10.4); Monocytes Absolute Auto 0.5 K/mm3 (0.1-0.6); Monocytes Percent Auto 3.3 % (2.6-8.5); Neutrophils Absolute Auto 13.8 K/mm3 (1.3-6.7); Neutrophils Percent Auto 91.2 % (45.5-73.1); Platelet Count Result 254 k/mm3 (150-375); Red Blood Count 4.07 M/mm3 (4.2-5.4); Red Cell Distribution Width 20.3 % (11.5-14.5); White Blood Count 15.1 K/mm3 (4.5-10.0)
[2022-10-21 06:28] LABS: Alanine Aminotransferase 25 U/L (6-35); Albumin Level 3.7 g/dL (3.5-5.1); Alkaline Phosphatase 119 U/L (38-126); Anion Gap 2 mmol/L (8-16); Aspartate Amino Transferase 22 U/L (14-36); Bilirubin,Total 0.5 mg/dL (0.2-1.3); Blood Urea Nitrogen 14 mg/dL (7-17); Calcium 8.5 mg/dL (8.4-10.2); Carbon Dioxide 39 mmol/L (22-30); Chloride 96 mmol/L (98-107); Estimated CRCL calculation 170 ml/min; Estimated Glomerular Filt Rate > 60; Glucose 136 mg/dL (65-110); Magnesium 2.3 mg/dL (1.6-2.3); Potassium 4.7 mmol/L (3.4-5.0); Sodium 137 mmol/L (137-145)
[2022-10-21 06:56] LABS: Hypochromasia 2+ (NORMAL); Microcytosis 1+ (NORMAL); Platelet Estimate Adequate (Adequate)
[2022-10-21 06:57] LABS: Schistocytes None Seen (NORMAL); Stomatocytes 1+ (NORMAL)
[2022-10-21] MEDS: FLUTICASONE/SALMETEROL 115-21 MCG INHALER 1 PUFF 2 PUFF INHALATION ×2 (07:50→21:21)
[2022-10-21] MEDS: busPIRone HCL 10 MG TABLET PO ×2 (08:52→17:48)
[2022-10-21] MEDS: hydroCHLOROthiazide 12.5 MG CAPSULE PO (08:52)
[2022-10-21] MEDS: FAMOTIDINE 20 MG TABLET PO (08:52)
[2022-10-21] MEDS: LORATADINE 10 MG TABLET PO (08:52)
[2022-10-21] MEDS: MONTELUKAST SODIUM 10 MG TABLET PO (08:52)
[2022-10-21] MEDS: DULoxetine HCL 60 MG CAPSULE.DR PO (08:52)
[2022-10-21] MEDS: AZELASTINE HCL NASAL 0.1% 137 MCG/SPR 30 ML BTL 1 SPRAY NASAL ×2 (08:52→20:59)
[2022-10-21] MEDS: amLODIPine BESYLATE 5 MG TABLET PO (08:53)
[2022-10-21] MEDS: methylPREDNISolone SOD SUCC 40 MG VIAL IV PUSH ×2 (08:53→20:59)
[2022-10-21] MEDS: FUROSEMIDE INJ 40 MG/4 ML VIAL 20 MG IV PUSH ×2 (08:53→17:48)
--- NOTE | 2022-10-21 09:52 | PM.IMPN ---
Progress Note: A&P Assessment and Plan (1) Acute and chronic respiratory failure with hypoxia: Code(s): J96.21 - Acute and chronic respiratory failure with hypoxia Status: Acute Assessment and Plan: In the ED patient was found to have O2 saturation at 88%. Supplemental oxygen by nasal cannula Wean oxygen to maintain O2 saturation of > 90% Patient reports wearing 2L oxygen at home when needed she does use BiPAP at night Continue asthma/COPD exacerbation management. (2) Asthma exacerbation: Code(s): J45.901 - Unspecified asthma with (acute) exacerbation Status: Acute Assessment and Plan: Chest x-ray with no acute cardiopulmonary process. Patient recently treated for pneumonia approximately 2 weeks ago. wheezing noted on exam. Patient requiring 2 L of O2. Wean to maintain oxygen saturation > 90% DuoNebs q.6 hours Treated with solu-medrol 40 mg IV Q12 hours, transition to oral prednisone 40 mg daily in the morning. WBC 15 but likely secondary to steroids. (3) Hypertension: Code(s): I10 - Essential (primary) hypertension Status: Chronic Assessment and Plan: Chronic, stable. Continue home meds (4) Obstructive sleep apnea: Code(s): G47.33 - Obstructive sleep apnea (adult) (pediatric) Status: Chronic Assessment and Plan: PAP therapy at nighttime (5) Morbid obesity with BMI of 50.0-59.9, adult: Code(s): E66.01 - Morbid (severe) obesity due to excess calories; Z68.43 - Body mass index [BMI] 50.0-59.9, adult Status: Chronic Assessment and Plan: Lifestyle and diet modifications 1800 calorie restricted diet (6) Lower extremity edema: Code(s): R60.0 - Localized edema Status: Acute Assessment and Plan: Has history of getting edematous and takes PRN torsemide echo pending. IV lasix 20 mg bid given. Transition to oral lasix in the morning. Supplement electrolytes as needed. Elevate lower extremities. Venous doppler negative for DVT. (7) MRSA (methicillin resistant Staphylococcus aureus) carrier: Code(s): Z22.322 - Carrier or suspected carrier of Methicillin resistant Staphylococcus aureus Status: Acute Assessment and Plan: H/O MRSA skin lesions. No open lesions at this time. Nasal swab MRSA positive on last admission and she was treated with oral doxycycline for pneumonia. Start bactroban nasal ointment both nares BID x 5 days. Hibiclens wash x1 Plan CODE STATUS: FULL CODE Discharge disposition: home when medically stable. Time Spent With Patient Time: 30 minutes Subjective Date/time seen: 10/21/22 09:52 She reports her breathing and leg swelling is better today. Denies chest pain, sputum changes, palpitations, abd pain, N/V/D or SOB at rest. She states she does still have some dyspnea on exertion. Echocardiogram pending. She has supplemental O2 2L as needed at home that she uses intermittently. Review of Systems Review of Systems: All systems reviewed & are unremarkable except as noted in HPI and below Exam Narrative: General: No acute distress.? Morbidly obese older adult female lying in bed. Nontoxic appearing. Mental Status/Psych: Awake, alert and oriented x4 with clear speech. Pleasant and cooperative. Neutral mood and affect. Skin: Skin fair, warm, dry and intact without rashes or lesions. No open wounds. Good turgor.? HEENT: Normocephalic. Sclera is non-icteric. Pupils equal and round. Oral mucosa pink and moist. Neck: No JVD. Heart: S1 and S2 regular rate and rhythm. No murmurs, gallops, or rubs auscultated. Chest: Respirations even and unlabored at rest. Lung sounds diminished with faint expiratory wheezing noted PHUONG and RUL, faint rales bibasilar lobes RLL>LLL. No rhonchi. Speaking in full sentences. Abdomen: Soft, obese and non-tender to palpation.? Bowel sounds present in all 4 quadrants. No guarding. Extremities:?
[2022-10-21] MEDS: PERFLUTREN LIPID MICROSPHERES 1.5 ML VIAL DILUTED TO 10 ML TOTAL VOLUME IV PUSH (10:00)
[2022-10-21 11:51] LABS: Influenza A QL RT-PCR Negative (Negative); Influenza B QL RT-PCR Negative (Negative); RSV RNA, RT-PCR Negative (Negative); SARS-CoV-2 RNA PCR Negative
[2022-10-21] MEDS: CHLORHEXIDINE GLUCONATE 4% SOL 120 ML BTL 1 APPLIC TOPICAL (17:48)
[2022-10-21] MEDS: MUPIROCIN 2% OINT 22 GM TUBE 1 APPLIC EACH NARE (20:59)
[2022-10-22] VITALS (10 sets, daily range): BP systolic 116; BP diastolic 96; PULSE 78–112; RESP 18–22; TEMP 36.1; O2SAT 90–96
[2022-10-22] MEDS: IPRATROPIUM BR 0.02% INH SOLN 0.5 MG/2.5 ML VIAL INHALATION ×3 (01:31→13:12)
[2022-10-22 06:35] LABS: Basophils Percent Auto 0.1 % (0.2-1.2); Hematocrit 33.6 % (37.0-47.0); Hemoglobin 9.6 g/dL (12.0-15.0); Immature Granulocyte Absolute 0.14 K/mm3 (0.00-0.031); Immature Reticulocyte Fraction 29.5 % (3.0-15.9); Lymphocytes Absolute Auto 0.94 K/mm3 (0.9-3.2); Lymphocytes Percent Auto 6.7 % (18.3-44.2); Mean Corpuscular HGB Conc 28.6 g/dl (32-36); Mean Corpuscular Hemoglobin 20.4 pg (26-34); Mean Corpuscular Volume 71.3 fl (80-100); Mean Platelet Volume 8.6 fl (7.4-10.4); Monocytes Absolute Auto 0.6 K/mm3 (0.1-0.6); Monocytes Percent Auto 4.3 % (2.6-8.5); Neutrophils Absolute Auto 12.4 K/mm3 (1.3-6.7); Neutrophils Percent Auto 87.9 % (45.5-73.1); Nucleated Red Blood Cells Perc 0.1 % (0.0-0.2); Platelet Count Result 303 k/mm3 (150-375); Red Blood Count 4.71 M/mm3 (4.2-5.4); Red Cell Distribution Width 21.1 % (11.5-14.5); Reticulocyte Hemoglobin Conten 16.9 pg (28.2-35.7); Reticulocyte Percent 2.35 % (0.7-4.3); Reticulocytes Absolute 0.11 B/L (32.2-175.7); White Blood Count 14.1 K/mm3 (4.5-10.0)
[2022-10-22 06:53] LABS: Blood Urea Nitrogen 19 mg/dL (7-17); Calcium 8.9 mg/dL (8.4-10.2); Carbon Dioxide > 40 mmol/L (22-30); Chloride 93 mmol/L (98-107); Estimated CRCL calculation 125 ml/min; Estimated Glomerular Filt Rate > 60; Glucose 127 mg/dL (65-110); Magnesium 2.2 mg/dL (1.6-2.3); Potassium 4.5 mmol/L (3.4-5.0); Sodium 136 mmol/L (137-145)
[2022-10-22 06:55] LABS: Iron 16 ug/dL (37-170)
[2022-10-22 07:02] LABS: Anisocytosis 2+ (NORMAL); Hypochromasia 2+ (NORMAL); Microcytosis 1+ (NORMAL); Platelet Estimate Adequate (Adequate); Stomatocytes 1+ (NORMAL)
[2022-10-22 07:03] LABS: Schistocytes None Seen (NORMAL)
[2022-10-22 07:05] LABS: Percent Iron Saturation 3 % (20-50)
[2022-10-22 07:30] LABS: Ferritin 5.99 ng/mL (11.1-264)
[2022-10-22] MEDS: AZELASTINE HCL NASAL 0.1% 137 MCG/SPR 30 ML BTL 1 SPRAY NASAL (08:27)
[2022-10-22] MEDS: busPIRone HCL 10 MG TABLET PO ×2 (08:28→12:14)
[2022-10-22] MEDS: LORATADINE 10 MG TABLET PO (08:28)
[2022-10-22] MEDS: TORSEMIDE 20 MG TABLET PO (08:28)
[2022-10-22] MEDS: DULoxetine HCL 60 MG CAPSULE.DR PO (08:28)
[2022-10-22] MEDS: MUPIROCIN 2% OINT 22 GM TUBE 1 APPLIC EACH NARE (08:28)
[2022-10-22] MEDS: FAMOTIDINE 20 MG TABLET PO (08:28)
[2022-10-22] MEDS: amLODIPine BESYLATE 5 MG TABLET PO (08:28)
[2022-10-22] MEDS: MONTELUKAST SODIUM 10 MG TABLET PO (08:28)
[2022-10-22] MEDS: predniSONE 20 MG TABLET 40 MG PO (08:28)
[2022-10-22] MEDS: FLUTICASONE/SALMETEROL 115-21 MCG INHALER 1 PUFF 2 PUFF INHALATION (09:31)
[2022-10-22] MEDS: polyethylene glycoL 3350 17 GM POWD.PACK PO (12:14)
[2022-10-22] MEDS: FERROUS SULFATE DRIED 142 MG TABCR PO (12:14)
--- NOTE | 2022-10-22 13:16 | PM.DS ---
DS: Admitting Diagnosis Discharge Date 10/22/2022 Admitting Diagnosis Acute and chronic respiratory failure with hypoxia Essential (primary) hypertension Obstructive sleep apnea (adult) (pediatric) Morbid obesity with BMI of 50.0-59.9, adult DS: Discharge Diagnosis Discharge Diagnosis (1) Acute and chronic respiratory failure with hypoxia: Code(s): J96.21 - Acute and chronic respiratory failure with hypoxia Status: Acute Assessment and Plan: In the ED patient was found to have O2 saturation at 88%. Supplemental oxygen by nasal cannula 2L need at all times. Wean oxygen to maintain O2 saturation of > 90% Patient reports wearing 2L oxygen at home when needed, but typically does not need to wear it. she uses BiPAP at night Continue asthma/COPD exacerbation management. (2) Asthma exacerbation: Code(s): J45.901 - Unspecified asthma with (acute) exacerbation Status: Acute Assessment and Plan: Chest x-ray with no acute cardiopulmonary process. Patient recently treated for pneumonia approximately 2 weeks ago. wheezing noted on exam. Patient requiring 2 L of O2. Wean to maintain oxygen saturation > 90% DuoNebs q.6 hours scheduled. Treated with solu-medrol 40 mg IV Q12 hours, transitioned to oral prednisone 40 mg daily on 10/22 WBC 15 but likely secondary to steroids. Patient afebrile. (3) Hypertension: Code(s): I10 - Essential (primary) hypertension Status: Chronic Assessment and Plan: Chronic, stable. Continued home meds without change. (4) Obstructive sleep apnea: Code(s): G47.33 - Obstructive sleep apnea (adult) (pediatric) Status: Chronic Assessment and Plan: PAP therapy at nighttime continued and well tolerated. (5) Morbid obesity with BMI of 50.0-59.9, adult: Code(s): E66.01 - Morbid (severe) obesity due to excess calories; Z68.43 - Body mass index [BMI] 50.0-59.9, adult Status: Chronic Assessment and Plan: Lifestyle and diet modifications. 1800 calorie restricted diet (6) Lower extremity edema: Code(s): R60.0 - Localized edema Status: Acute Assessment and Plan: Has history of getting edematous and takes PRN torsemide echo pending. IV lasix 20 mg bid given. Transition to oral torsemide 20 mg PO daily scheduled on 10/22. Renal function and electrolytes monitored. K >4 at discharge. Elevate lower extremities. Venous doppler negative for DVT. HCTZ stopped due to torsemide use. Echocardiogram with normal LV systolic and diastolic function. EF 65% (7) MRSA (methicillin resistant Staphylococcus aureus) carrier: Code(s): Z22.322 - Carrier or suspected carrier of Methicillin resistant Staphylococcus aureus Status: Chronic Assessment and Plan: H/O MRSA skin lesions. No open lesions at this time. Nasal swab MRSA positive on last admission and she was treated with oral doxycycline for pneumonia. Start bactroban nasal ointment both nares BID x 5 days. Hibiclens wash x1 DS: Summary Hospital Course Reason for hospitalization: Shortness of breath Hospital Course: Patient?is a 52-year-old female with morbid obesity, hypertension, chronic hypoxic respiratory failure, asthma, obstructive sleep apnea on BiPAP at nighttime, fibromyalgia, and GERD.?She was recently discharged from [facility] after she was treated for pneumonia and asthma exacerbation and discharged home on oral doxycycline and p.o. steroids. She presented to the ED for evaluation of worsening shortness of breath and oxygen saturation on in the 70% on room air. She uses oxygen only when she needs it and BiPAP at nighttime. At home she noticed, that her saturation was 80% and decided to come to the emergency room.? She denied fevers, rigors, chills, nausea, vomiting, diarrhea, cough, sputum production.? Preliminary chest x-ray showed improvement of infiltrates.?Lab work showed n
== END 2022-10-22 14:00 | disposition home or self-care (01) ==
LOC: ANHED 10-20 04:59 → ANH3MEDSUR 10-20 09:51
PROVIDERS: Internal Medicine Critical Care Medicine; Nurse Practitioner Family; Admitting Provider Internal Medicine; Emergency Provider Emergency Medicine; PCP Nurse Practitioner Family; Visit Provider Student in an Organized Health Care Education/Training Program
DX: J96.21 Acute and chronic respiratory failure with hypoxia (principal); J45.901 Unspecified asthma with (acute) exacerbation; I10 Essential (primary) hypertension; G47.33 Obstructive sleep apnea (adult) (pediatric); Z99.89 Dependence on other enabling machines and devices; R60.0 Localized edema; J44.9 Chronic obstructive pulmonary disease, unspecified; Z99.81 Dependence on supplemental oxygen; F41.9 Anxiety disorder, unspecified; Z20.822 Contact with and (suspected) exposure to COVID-19; D64.9 Anemia, unspecified; J32.9 Chronic sinusitis, unspecified; K21.9 Gastro-esophageal reflux disease without esophagitis; R94.31 Abnormal electrocardiogram [ECG] [EKG]; M79.7 Fibromyalgia; E66.01 Morbid (severe) obesity due to excess calories; Z68.44 Body mass index [BMI] 60.0-69.9, adult; Z87.01 Personal history of pneumonia (recurrent); Z79.51 Long term (current) use of inhaled steroids; Z79.52 Long term (current) use of systemic steroids; Z79.899 Other long term (current) drug therapy; Z82.49 Family history of ischemic heart disease and other diseases of the circulatory system; J44.1 Chronic obstructive pulmonary disease with (acute) exacerbation
CPT/HCPCS: 36415; 71046; 80048; 80053; 82728; 83540; 83550; 83735; 83880; 84484; 85025; 85046; 85610; 85730; 87637; 93005; 93306; 93970; 94003; 94640; 96365; 96375; 96376; 99285; A9270; C8929; G0378; J1940; J2920; J2930; J3475; J7512; Q9957

== ENCOUNTER → 2022-11-05 10:55 | Outpatient (CLI) | payer MEDICARE, MEDICAID, SELFPAY ==
--- NOTE | ~2022-11-05 | XR_ITS ---
Clinical Indication: Asthma PA and lateral views of the chest: Comparison: 10/19/2022 Findings: Stable linear scarring at the left midlung noted. The lungs are otherwise clear, without ev idence of focal consolidation or pleural effusion. Cardiomediastinal silhouette is within normal mcwilliams its. Bones and soft tissues are unremarkable. Impression: Linear scarring left midlung, otherwise unremarkable exam. Reviewed, dictated and finalized at location M. Impression: Linear scarring left midlung, otherwise unremarkable exam.
== END ==
PROVIDERS: PCP Nurse Practitioner Family; Visit Provider Nurse Practitioner Family
DX: J45.51 Severe persistent asthma with (acute) exacerbation (principal)
CPT/HCPCS: 71046

== ENCOUNTER 2023-01-27 08:23 | Inpatient (IN) | payer MEDICARE, MEDICAID, SELFPAY ==
[2023-01-27] VITALS (50 sets, daily range): BP systolic 114–175; BP diastolic 62–91; PULSE 77–109; RESP 13–29; TEMP 36.6–36.9; O2SAT 90–100; BMI 60.7
--- NOTE | ~2023-01-27 | CT_ITS ---
EXAMINATION: CTA chest PE protocol DATE: 01/27/2023 14:24 INDICATION: Respiratory failure. Shortness of breath. TECHNIQUE: Computed tomography angiography (CTA) of the chest was performed with 100 mL Omnipaque-350 intravenous contrast timed to evaluate the pulmonary arteries. Coronal maximum intensity projection 3D-reconstructions were created by the technologist. Automated exposure control and iterative reconst ruction technique were employed. Exam dose: 1053.40 mGy-cm total exam DLP. COMPARISON: 01/27/2023 2 view chest 10/03/2022 CTA chest FINDINGS: There is moderate opacification of the pulmonary arteries and no evidence of pulmonary embo lism. No thoracic aortic aneurysm or dissection. No hilar or mediastinal mass lesion or lymphadenopathy. Mild scattered patchy areas of bilateral atelectasis. No pulmonary consolidation or pulmonary mass l esion is detected. Normal heart size. No pericardial or pleural effusion. No pneumothorax. Bilateral old healed rib fractures, some on the left ununited. Degenerative changes of the thoracic spine. IMPRESSION: Scattered bilateral mild patchy lung atelectasis No evidence of pulmonary embolism or thoracic aortic aneurysm or dissection or congestive change Bilateral old rib fractures, including multiple ununited chronic rib fractures on the left Reviewed, dictated and finalized at Location A. Reviewed, dictated and finalized at location B.
--- NOTE | ~2023-01-27 | XR_ITS ---
Clinical Indication: Shortness of breath AP and lateral views of the chest: Comparison: 11/05/2022 Findings: There is suggestion of at least 3 nodular opacities in the left lung, measuring up to 2.7 c m and the left upper lobe region, and 3 cm projecting over the left heart border. Cardiac silhouette otherwise is unremarkable. No pleural effusion or pneumothorax.. Impression: Suspected multiple left lung nodules measuring up to [address] scan of the chest recommended for fur er evaluation. Reviewed, dictated and finalized at location M. Impression: Suspected multiple left lung nodules measuring up to [address] scan of the chest recommended for further evaluation.
--- NOTE | 2023-01-27 08:42 | ECG_ITS ---
Measurements Intervals [place] Rate: 84 P: 57 CT: 132 QRS: 51 QRSD: 97 T: 52 QT: 347 QTc: 410 Interpretive Statements SINUS RHYTHM LOW QRS VOLTAGE IN PRECORDIAL LEADS BASELINE ARTIFACT- AVR BORDERLINE ECG COMPARED TO ECG 10/19/2022 23:11:49 NO SIGNIFICANT CHANGES Electronically Signed On 01-27-2023 8:56:34 CDT by Denis Moody D.O.
[2023-01-27 09:03] LABS: Basophils Percent Auto 0.3 % (0.2-1.2); Eosinophils Absolute Auto 0.2 K/mm3 (0-0.3); Eosinophils Percent Auto 2.8 % (0-4.4); Hemoglobin 8.1 g/dL (12.0-15.0); Immature Granulocyte Absolute 0.03 K/mm3 (0.00-0.031); Immature Granulocyte Percent A 0.4 % (0-0.5); Lymphocytes Absolute Auto 1.12 K/mm3 (0.9-3.2); Lymphocytes Percent Auto 16.6 % (18.3-44.2); Mean Corpuscular HGB Conc 26.1 g/dl (32-36); Mean Corpuscular Hemoglobin 19.1 pg (26-34); Mean Corpuscular Volume 73.3 fl (80-100); Mean Platelet Volume 8.9 fl (7.4-10.4); Monocytes Absolute Auto 0.7 K/mm3 (0.1-0.6); Monocytes Percent Auto 10.4 % (2.6-8.5); Neutrophils Absolute Auto 4.7 K/mm3 (1.3-6.7); Neutrophils Percent Auto 69.5 % (45.5-73.1); Platelet Count Result 254 k/mm3 (150-375); Red Blood Count 4.23 M/mm3 (4.2-5.4); Red Cell Distribution Width 20.9 % (11.5-14.5); White Blood Count 6.7 K/mm3 (4.5-10.0)
[2023-01-27] MEDS: predniSONE 20 MG TABLET 60 MG PO (09:03)
[2023-01-27] MEDS: ALBUTEROL SULFATE NEB 2.5 MG/3 ML INH 10 MG INHALATION (09:08)
[2023-01-27 09:13] LABS: Alanine Aminotransferase 24 U/L (6-35); Albumin Level 3.9 g/dL (3.5-5.1); Alkaline Phosphatase 124 U/L (38-126); Aspartate Amino Transferase 23 U/L (14-36); Bilirubin,Total 0.4 mg/dL (0.2-1.3); Blood Urea Nitrogen 16 mg/dL (7-17); Carbon Dioxide > 40 mmol/L (22-30); Chloride 94 mmol/L (98-107); Estimated CRCL calculation 121 ml/min; Estimated Glomerular Filt Rate > 60; Glucose 145 mg/dL (65-110); Potassium 3.9 mmol/L (3.4-5.0); Sodium 139 mmol/L (137-145)
[2023-01-27 09:24] LABS: Alveolar/Arterial O2 Gradient 41.6 mmHg; Base Excess ABG 10.5 mEq/l (+/-2.0); Carboxyhemoglobin 1.7 % THb (0-2.0); Fractional Inspired Oxygen 32 %; HCO3 ABG 39.4 mEq/l (22.0-26.0); Methemoglobin ABG 0.4 %THb (0-1.5); Oxygen Content ABG 12.2 %vol (16.0-22.0); Oxygen Saturation ABG 94.9 % (95.0-100.0); Oxyhemoglobin 92.5 % THb (90.0-100.0); PO2 ABG 86.8 mmHg (80.0-100.0); PO2 FiO2 Ratio Arterial Blood 2.71 %; Reduced Hemoglobin 5.4 %THb (0-5.0); Total Hemoglobin 9.3 g/dL (12.0-18.0)
[2023-01-27 09:25] LABS: Device NASAL CANNULA; Modified Allen's Test Pass; PCO2 ABG 85.3 mmHg (35.0-45.0); Site Drawn LEFT RADIAL; pH ABG 7.282 (7.350-7.450)
[2023-01-27 09:29] LABS: Hypochromasia 2+ (NORMAL); Platelet Estimate Adequate (Adequate)
--- NOTE | 2023-01-27 09:29 | PC.NURSE ---
Pt to xray
[2023-01-27 09:30] LABS: Anisocytosis 2+ (NORMAL); Basophilic Stippling 1+ (NORMAL); Schistocytes None Seen (NORMAL)
[2023-01-27 09:31] LABS: INR 0.9; Microcytosis 1+ (NORMAL); Prothrombin Time 12.9 Seconds (11.1-14.7)
[2023-01-27 09:32] LABS: Partial Thromboplastin Time 24.7 SECONDS (22.3-36.8)
[2023-01-27 09:36] LABS: Lipase 47 U/L (23-300)
[2023-01-27 09:44] LABS: NT Pro B Type Natriuretic Pept 80 pg/mL (19.9-100)
--- NOTE | 2023-01-27 10:11 | ED.SOB ---
HPI - SOB/Dyspnea General Chief Complaint: Shortness of Breath/Dyspnea Stated Complaint: quintana/shallow breathing/facial swelling/abd pain/back Time Seen by Provider: 01/27/23 08:42 Source: patient and RN notes reviewed Mode of arrival: ambulatory Limitations: no limitations History of Present Illness HPI Narrative: THis is a 53 year old female with history of asthma, morbid obesity, chronic respiratory failure who presents for evaluation of shortness of breath. She reports worsening shortness of breath for 2 weeks. She was evaluated at another ER 4 days ago and she reports she was found to be 70% oxygen saturation. She was given neb treatment and discharged home on steroids. She reports she is not feeling any better. She reports low grade temperature. She denies worsening cough and productive cough. She denies chest pain, fever, leg swelling or calf pain. She reports having issues with GERD. She states she does wear BIPAP at night. Related Data Home Medications Medication Instructions Recorded Confirmed amlodipine 5 mg tablet (Norvasc) 5 mg PO DAILY 08/06/19 01/27/23 budesonide-formoterol HFA 160 2 puff inhalation Q12H 08/06/19 01/27/23 mcg-4.5 mcg/actuation aerosol inhaler (Symbicort) cetirizine 10 mg tablet (Zyrtec) 10 mg PO DAILY 08/06/19 01/27/23 montelukast 10 mg tablet 10 mg PO DAILY 08/06/19 01/27/23 (Singulair) tiotropium bromide 1.25 2 puff inhalation DAILY 08/06/19 01/27/23 mcg/actuation mist for inhalation (Spiriva Respimat) Bipap 04/01/22 01/27/23 Home Oxygen 04/01/22 01/27/23 [employer] Mini Oxygen System 04/01/22 01/27/23 buspirone 10 mg tablet 10 mg PO TID 04/01/22 01/27/23 epinephrine 0.3 mg/0.3 mL 0.3 ml subcut DIRECTED PRN 04/01/22 01/27/23 injection, auto-injector Anaphylaxis ferrous sulfate 325 mg (65 mg 325 mg PO Q48H 01/27/23 01/27/23 iron) tablet,delayed release omeprazole 20 mg capsule,delayed 20 mg PO DAILY 01/27/23 01/27/23 release Allergies Allergy/AdvReac Type Severity Reaction Status Date / Time nickel Allergy Intermediate Swelling Verified 01/27/23 08:54 METALS Allergy Intermediate Rash Uncoded 10/19/22 23:29 Review of Systems Constitutional: Constitutional: Reports fever(s) and Denies weakness Cardiovascular: Cardiovascular: Denies syncope, Denies rapid heart rate, Denies irregular heart rhythm, Denies leg edema and Reports dyspnea Respiratory: Respiratory: Reports chest congestion, Reports cough, Denies hemoptysis, Denies excessive phlegm production, Reports dyspnea and Reports wheezing Gastrointestinal: Gastrointestinal: Denies abdominal pain, Denies hematochezia, Denies diarrhea and Reports vomiting Genitourinary: Genitourinary: Denies hematuria and Denies dysuria Musculoskeletal: Musculoskeletal: Denies joint swelling, Denies loss of height and Denies muscle weakness Neurologic: Denies syncope, Denies focal weakness and Denies weakness PMFSH Past Medical History Medical History (Updated 01/27/23 @ 18:38 by Maria Del Carmen Villarreal MD) Anxiety Asthma Chronic sinusitis COVID-19 ruled out by laboratory testing Fibromyalgia Gastroesophageal reflux disease Hypertension Iron deficiency anemia Morbid obesity MRSA (methicillin resistant Staphylococcus aureus) carrier Obstructive sleep apnea Patient reports that her most recent sleep study showed no indication for CPAP. Tendonitis Surgical History Surgical History (Updated 01/27/23 @ 13:48 by Manasa Young NP) H/O: hysterectomy History of bilateral carpal tunnel release x2 History of cervical spinal surgery History of section X1 History of endometrial ablation History of sinus surgery History of tubal ligation (~2009) Anterior ethmoid and maxillary antrostomy. Family History Family History Father Hypertension Colon cancer Mother Alive and well Colon cancer Breast cancer Sibling Colon cancer Social History Social Histor
[2023-01-27 10:13] LABS: Influenza A QL RT-PCR Negative (Negative); Influenza B QL RT-PCR Negative (Negative); SARS-CoV-2 RNA PCR Negative (Negative)
[2023-01-27 11:07] LABS: Alveolar/Arterial O2 Gradient 23.9 mmHg; Base Excess ABG 11.9 mEq/l (+/-2.0); Carboxyhemoglobin 1.4 % THb (0-2.0); Fractional Inspired Oxygen 28 %; HCO3 ABG 40.8 mEq/l (22.0-26.0); Methemoglobin ABG 0.5 %THb (0-1.5); Oxygen Content ABG 12.3 %vol (16.0-22.0); Oxygen Saturation ABG 92.3 % (95.0-100.0); Oxyhemoglobin 90.2 % THb (90.0-100.0); PO2 FiO2 Ratio Arterial Blood 2.64 %; Reduced Hemoglobin 7.9 %THb (0-5.0); Total Hemoglobin 9.6 g/dL (12.0-18.0)
[2023-01-27 11:08] LABS: Device NON-INVASIVE VENT; Modified Allen's Test Pass; PCO2 ABG 86.2 mmHg (35.0-45.0); Site Drawn LEFT RADIAL; pH ABG 7.293 (7.350-7.450)
[2023-01-27 11:09] LABS: Non-Invasive Expiratory Pressure 6 CMH2O; Non-Invasive Inspiratory Pressure 16 CMH2O; Non-Invasive Vent Rate 16 /MIN
--- NOTE | 2023-01-27 11:54 | PM.CNPUL ---
Assessment and Plan Assessment and plan (1) Asthma exacerbation: Code(s): J45.901 - Unspecified asthma with (acute) exacerbation Status: Acute Assessment and Plan: Patient with a history of asthma and currently is on BiPAP and is unable to provide a meaningful history. I spoke with the ED physician and she has been shortness of breath for 2 weeks was seen in the ER 4 days ago and discharged on prednisone taper for presumed asthma exacerbation. Patient now has acute on chronic hypercarbic and hypoxemic respiratory failure and states that she is breathing better with Solu-Medrol and bronchodilators. CT angiogram of the chest shows no PE, subtle areas of mosaic attenuation throughout all lung uriostegui, no focal consolidations. Plan: Agree with treatment for asthma exacerbation with Solu-Medrol 60 mg IV q.6 hours, nebulized albuterol 2.5 mg q.4 hours, nebulized ipratropium 0.5 mg q.4 hours. Patient has received IV magnesium already. CT scan without evidence of focal pneumonia at this time agree with ceftriaxone and azithromycin pending blood cultures. Agree with transfer to ICU for closer monitoring. Discussed with Manasa Young Will follow with you (2) Respiratory failure with hypoxia and hypercapnia: Code(s): J96.91 - Respiratory failure, unspecified with hypoxia; J96.92 - Respiratory failure, unspecified with hypercapnia Status: Acute Assessment and Plan: Patient carries a diagnosis of obstructive sleep apnea on BiPAP and also on 2 L nasal cannula at home. Patient with acute on chronic hypercarbic and hypoxemic respiratory failure. Most recent blood gas demonstrated acute on chronic hypercarbic respiratory failure on BiPAP rate of 20 pressures 25/5 in 35% FiO2 with a pH of 7.26/85/68. AVAPS rate of 25, tidal volume 550, EPAP 8, minimal inspiratory pressure 9, maximal inspiratory pressure 35, rise of 2 and 35% FiO2. Will follow patient clinically and obtain a blood gas in the morning. Will attempt to obtain a download remotely on 01/28/2023. History of Present Illness History of Present Illness Consult date: 01/28/23 Chief complaint: Acute respiratory with hypercapnea Narrative: 01/27/2023: This is a new pulmonary consult for asthma, obstructive sleep apnea on BiPAP and acute on chronic hypercarbic and hypoxemic respiratory failure. 53 YO with morbid obesity, hypertension, chronic hypoxic respiratory failure, obstructive sleep apnea on BiPAP at nighttime, fibromyalgia, and GERD. Patient is followed by lead mobile developer Dr. Tim and home medicines include Symbicort 160-4.5 at 2 puffs q.12 hours, Spiriva Respimat 1.25 mcg at 2 puffs q.day montelukast 10 mg p.o. q.day, Zyrtec 10 mg p.o. q.day as a last and 1 spray intranasal q.12 hours rescue albuterol inhaler and nebulizers q.4 hours p.r.n. I have no PFTs. Patient was admitted to [facility] on 10/03/2022 through 10/07/2022 for shortness of breath, bloating and blood in her stool. Treated for pneumonia with ceftriaxone and azithromycin and asthma exacerbation with steroids and bronchodilators. 10/20/2022 admitted to the hospital for shortness of breath and hypoxemia, treated for asthma-COPD exacerbation with BiPAP at night, steroids, bronchodilators and discharged on 10/22/2022 Patient patient was seen in another emergency department on 01/23/2023 and was found to be hypoxemic and treated with nebulized and discharged home on steroids. She has not made any improvement and presented to [facility] emergency department on 01/27/2023 with 2 weeks worsening shortness of breath, wheezing. Initial vital signs were blood pressure 175/78, heart rate 109, afebrile, room air saturations 91%. She had expert or E wheezes and diminished lung sounds. No pedal edema. White blood cell count was 6.7, eosinophils 2.8%= 188 per micro L, creatinine was 0.7, serum bicarb was greater than 40, BNP was 80, influenza and COVID RT PCR study negative. Initial blood
[2023-01-27] MEDS: IPRATROPIUM BR 0.02% INH SOLN 0.5 MG/2.5 ML VIAL INHALATION ×3 (12:23→20:02)
[2023-01-27] MEDS: ALBUTEROL SULFATE NEB 2.5 MG/3 ML INH INHALATION ×3 (12:23→20:02)
--- NOTE | 2023-01-27 13:36 | PM.IMHP ---
H&P: HPI History of Present Illness Date/Time: 01/27/23 13:36 Chief Complaint: Shortness of breath Narrative: This is a 53-year-old female patient who has a history of asthma. She states that she has a BiPAP machine at home. She also wears oxygen at 2 L per nasal cannula as needed. She stated that she has been short of breath for the last 2 weeks. She has been evaluated at another emergency department approximately 4 days ago. It was noted that her oxygen level was 70% at that time. She was given nebulizer treatment and discharged home on steroids. She has not been feeling any better. She reported that she has a low-grade fever she has worsening cough. Her white count is normal. Her H&H is 8.1 and 31.0 her last known H&H on 10/22/2022 was 9.6 and 33.6. On her ABGs her pH was 7.293 and her bicarb was 86.2. The patient was placed on a BiPAP with settings of 20/6 with a rate of 20 and 40% bleed in. The patient actually sat up and was asking about her boyfriend when I evaluated her in the emergency room. The patient was found to be negative for influenza A/B and COVID. Chest x-ray was read as suspected multiple left lung nodules measuring up to 3 cm. Pulmonology has been consulted. The patient was given a nebulizer treatment and prednisone. The patient is being admitted to inpatient status on the date of service of 01/27/2023. Review of Systems Review of Systems: All systems reviewed & are unremarkable except as noted in HPI and below Constitutional: Constitutional: Reports as per HPI and Reports no additional constitutional complaints Eyes: Eyes: Reports as per HPI and Reports no additional eye complaints ENT: Reports system reviewed and no additional complaints, except as documented and Reports Normal hearing present Cardiovascular: Cardiovascular: Reports no additional cardiovascular complaints Respiratory: Respiratory: Reports no additional respiratory complaints and Reports no additional respiratory complaints Gastrointestinal: Gastrointestinal: Reports as per HPI and Reports no additional gastrointestinal complaints Musculoskeletal: Musculoskeletal: Reports no additional musculoskeletal complaints Integumentary/Breasts: Skin/Breast: Reports system reviewed and no additional complaints, except as docu and Reports as per HPI Neurologic: Reports system reviewed and no additional complaints, except as documented, Reports as per HPI and Reports Normal hearing present Psychiatric: Psychiatric: Reports no additional psychiatric complaints and Reports as per HPI Endocrine: Endocrine: Reports no additional endocrine complaints Hematologic/Lymphatic: Hematologic/Lymphatic: Reports no additional hematologic/lymphatic complaints Allergic/Immunologic: Allergic/Immunologic: Reports no additional allergic/immunologic complaints [facility] Past Medical History Medical History (Updated 01/27/23 @ 14:00 by Manasa Young NP) Anxiety Asthma Chronic sinusitis COVID-19 ruled out by laboratory testing Fibromyalgia Gastroesophageal reflux disease Hypertension Iron deficiency anemia Morbid obesity MRSA (methicillin resistant Staphylococcus aureus) carrier Obstructive sleep apnea Patient reports that her most recent sleep study showed no indication for CPAP. Tendonitis Surgical History Surgical History (Updated 01/27/23 @ 13:48 by Manasa Young NP) H/O: hysterectomy History of bilateral carpal tunnel release x2 History of cervical spinal surgery History of section X1 History of endometrial ablation History of sinus surgery History of tubal ligation (~2009) Anterior ethmoid and maxillary antrostomy. Family History Family History Father Hypertension Colon cancer Mother Alive and well Colon cancer Breast cancer Sibling Colon cancer Social History Social History (Updated 01/27/23 @ 13:48 by Manasa Young NP) Social History: [employer]
--- NOTE | 2023-01-27 13:41 | PCRCNOTE ---
RT notified Dr. Villarreal that VT on BIPAP is 315-[address] Villarreal stated to get a repeat ABG.
[2023-01-27 13:44] LABS: Alveolar/Arterial O2 Gradient 106.9 mmHg; Base Excess ABG 5.5 mEq/l (+/-2.0); Carboxyhemoglobin 1.8 % THb (0-2.0); Fractional Inspired Oxygen 40 %; HCO3 ABG 34.4 mEq/l (22.0-26.0); Methemoglobin ABG 0.4 %THb (0-1.5); Oxygen Content ABG 12.7 %vol (16.0-22.0); Oxygen Saturation ABG 94.4 % (95.0-100.0); PO2 ABG 85.6 mmHg (80.0-100.0); PO2 FiO2 Ratio Arterial Blood 2.14 %; Reduced Hemoglobin 5.8 %THb (0-5.0); Total Hemoglobin 9.7 g/dL (12.0-18.0)
[2023-01-27 13:46] LABS: pH ABG 7.248 (7.350-7.450)
[2023-01-27 13:47] LABS: Device BIPAP; Expiratory Pressure 6 cmH2O; Inspiratory Pressure 20 cmH2O; Modified Allen's Test Pass; PCO2 ABG 80.6 mmHg (35.0-45.0); Site Drawn LEFT RADIAL
[2023-01-27] MEDS: MAGNESIUM SULF 2 GM/WATER 50ML 2 GM/50 ML BAG IVPB (14:45)
[2023-01-27 14:55] LABS: Alveolar/Arterial O2 Gradient 45.1 mmHg; Base Excess ABG 8.7 mEq/l (+/-2.0); Fractional Inspired Oxygen 30 %; HCO3 ABG 37.6 mEq/l (22.0-26.0); Oxygen Content ABG 12.3 %vol (16.0-22.0); Oxygen Saturation ABG 91.3 % (95.0-100.0); Oxyhemoglobin 89.7 % THb (90.0-100.0); PO2 ABG 71.5 mmHg (80.0-100.0); PO2 FiO2 Ratio Arterial Blood 2.38 %; Total Hemoglobin 9.7 g/dL (12.0-18.0)
[2023-01-27 15:01] LABS: Device BIPAP; Modified Allen's Test Pass; PCO2 ABG 82.8 mmHg (35.0-45.0); Site Drawn LEFT RADIAL; pH ABG 7.275 (7.350-7.450)
[2023-01-27 15:03] LABS: Expiratory Pressure 5 cmH2O; Inspiratory Pressure 25 cmH2O
--- NOTE | 2023-01-27 15:35 | ADMGEN ---
This patient, Angie Leos, was admitted to IMU Room 212-01 @ 1520 . Pt on BIPAP 25/5 rate 20 ,fio2 30%. pt awake , alert - answers appropriately.Patient oriented to hospital policies and general routines including ID bracelet, bed and alarms, visiting hours, pain management, procedures, bathroom and other care routines, personal items, smoking policy, room service/diet, and visiting hours. Information on how to activate the Rapid Response Team has been discussed. Patient are encouraged to report perceived risks to care and to ask questions if they do not understand what they are told or what they should do.
[2023-01-27 16:39] LABS: Alveolar/Arterial O2 Gradient 46.6 mmHg; Base Excess ABG 7.9 mEq/l (+/-2.0); Fractional Inspired Oxygen 30 %; HCO3 ABG 37.1 mEq/l (22.0-26.0); Oxygen Content ABG 12.3 %vol (16.0-22.0); Oxygen Saturation ABG 89.4 % (95.0-100.0); Oxyhemoglobin 88.9 % THb (90.0-100.0); PO2 ABG 67.5 mmHg (80.0-100.0); PO2 FiO2 Ratio Arterial Blood 2.25 %; Total Hemoglobin 9.8 g/dL (12.0-18.0)
[2023-01-27 16:45] LABS: Device NON-INVASIVE VENT; Modified Allen's Test Pass; PCO2 ABG 84.9 mmHg (35.0-45.0); Site Drawn LEFT RADIAL; pH ABG 7.258 (7.350-7.450)
[2023-01-27 16:51] LABS: Non-Invasive Expiratory Pressure 5 CMH2O; Non-Invasive Inspiratory Pressure 20 CMH2O; Non-Invasive Vent Rate 20 /MIN
--- NOTE | 2023-01-27 16:57 | PC.NURSE ---
4860- admission assessment completed- pt answered questions appropriately but drifts back to sleep when not stimulated- Manasa HIRSCH into see pt .
--- NOTE | 2023-01-27 17:15 | PC.NURSE ---
1700 - dr. ambrose in room to assess pt
--- NOTE | 2023-01-27 17:15 | PC.NURSE ---
1640- jim gonzalez dryer feeder into see pt orders to transfer to ICU
--- NOTE | 2023-01-27 17:37 | P.PNCROSS_ITS ---
Event Note Event Note Event Note: I spoke with Dr. Richey for consult on transferred to ICU for higher supervisi on. The patient is awake and talking in full sentences at times and then at other time she is lethargic and the staff has difficulty getting her awake. I also spoke with Dr. De La Cruz the director of mobile marketing who made some recommendations for her settings and recommended current medications. He recommended that the patient stay in ICU for further evaluation during the night. He will adjust her setting on a noninvasive ventilator.
--- NOTE | 2023-01-27 18:12 | PC.NURSE ---
1720- transferred to ICU via bed -with BIPAP in use- automation machine operator and RN transferred pt to room ICU 7- report given to Billie ROB- belongings with pt
[2023-01-27] MEDS: methylPREDNISolone SOD SUCC 125 MG VIAL 60 MG IV PUSH (18:20)
[2023-01-27] MEDS: AZITHROMYCIN 500 MG/NS 250 ML 500 MG/250 ML BAG 250 MG IVPB (20:27)
[2023-01-28] VITALS (31 sets, daily range): BP systolic 121–159; BP diastolic 51–102; PULSE 56–118; RESP 18–26; TEMP 36.7–37.2; O2SAT 91–100
[2023-01-28] MEDS: IPRATROPIUM BR 0.02% INH SOLN 0.5 MG/2.5 ML VIAL INHALATION ×6 (00:20→20:36)
[2023-01-28] MEDS: ALBUTEROL SULFATE NEB 2.5 MG/3 ML INH INHALATION ×6 (00:20→20:36)
[2023-01-28 04:42] LABS: Hemoglobin 7.9 g/dL (12.0-15.0); Immature Granulocyte Absolute 0.09 K/mm3 (0.00-0.031); Immature Granulocyte Percent A 1.3 % (0-0.5); Lymphocytes Absolute Auto 0.62 K/mm3 (0.9-3.2); Lymphocytes Percent Auto 8.8 % (18.3-44.2); Mean Corpuscular HGB Conc 26.3 g/dl (32-36); Mean Corpuscular Hemoglobin 18.9 pg (26-34); Mean Corpuscular Volume 71.6 fl (80-100); Mean Platelet Volume 9.1 fl (7.4-10.4); Monocytes Absolute Auto 0.2 K/mm3 (0.1-0.6); Monocytes Percent Auto 3.1 % (2.6-8.5); Neutrophils Absolute Auto 6.1 K/mm3 (1.3-6.7); Neutrophils Percent Auto 86.8 % (45.5-73.1); Platelet Count Result 235 k/mm3 (150-375); Red Blood Count 4.19 M/mm3 (4.2-5.4); Red Cell Distribution Width 20.3 % (11.5-14.5); White Blood Count 7.1 K/mm3 (4.5-10.0)
[2023-01-28] MEDS: methylPREDNISolone SOD SUCC 125 MG VIAL 60 MG IV PUSH (04:43)
[2023-01-28 04:56] LABS: Alanine Aminotransferase 23 U/L (6-35); Albumin Level 3.7 g/dL (3.5-5.1); Alkaline Phosphatase 116 U/L (38-126); Anion Gap 1 mmol/L (8-16); Aspartate Amino Transferase 28 U/L (14-36); Bilirubin,Total 0.5 mg/dL (0.2-1.3); Blood Urea Nitrogen 16 mg/dL (7-17); Calcium 8.6 mg/dL (8.4-10.2); Carbon Dioxide 39 mmol/L (22-30); Chloride 95 mmol/L (98-107); Estimated CRCL calculation 164 ml/min; Estimated Glomerular Filt Rate > 60; Glucose 129 mg/dL (65-110); Potassium 4.9 mmol/L (3.4-5.0); Sodium 135 mmol/L (137-145)
[2023-01-28 04:56] LABS: Alveolar/Arterial O2 Gradient 148.6 mmHg; Base Excess ABG 8.8 mEq/l (+/-2.0); Fractional Inspired Oxygen 40 %; HCO3 ABG 35.4 mEq/l (22.0-26.0); Oxygen Content ABG 12.1 %vol (16.0-22.0); Oxygen Saturation ABG 92.2 % (95.0-100.0); Oxyhemoglobin 91.1 % THb (90.0-100.0); PO2 ABG 66.2 mmHg (80.0-100.0); PO2 FiO2 Ratio Arterial Blood 1.65 %; Total Hemoglobin 9.4 g/dL (12.0-18.0)
[2023-01-28 04:59] LABS: Modified Allen's Test Pass; PCO2 ABG 61.2 mmHg (35.0-45.0); Site Drawn RIGHT RADIAL
[2023-01-28 05:01] LABS: Device BIPAP
[2023-01-28 05:02] LABS: Non-Invasive Expiratory Pressure 8 CMH2O; Non-Invasive Vent Rate 25 /MIN
[2023-01-28 05:34] LABS: Hypochromasia 1+ (NORMAL); Platelet Estimate Adequate (Adequate)
[2023-01-28 05:35] LABS: Ovalocytes 1+ (NORMAL); Stomatocytes 1+ (NORMAL)
[2023-01-28 05:38] LABS: Schistocytes None Seen (NORMAL)
[2023-01-28] MEDS: ALBUTEROL SULFATE NEB 2.5 MG/3 ML INH (08:23)
--- NOTE | 2023-01-28 08:35 | PM.PNPUL ---
Progress Note: A&P Assessment and Plan (1) Asthma exacerbation: Code(s): J45.901 - Unspecified asthma with (acute) exacerbation Status: Acute Assessment and Plan: Patient with a history of asthma and currently is on BiPAP and is unable to provide a meaningful history. I spoke with the ED physician and she has been shortness of breath for 2 weeks was seen in the ER 4 days ago and discharged on prednisone taper for presumed asthma exacerbation. Patient now has acute on chronic hypercarbic and hypoxemic respiratory failure and states that she is breathing better with Solu-Medrol and bronchodilators. CT angiogram of the chest shows no PE, subtle areas of mosaic attenuation throughout all lung uriostegui, no focal consolidations. Plan: Agree with treatment for asthma exacerbation with Solu-Medrol 60 mg IV q.6 hours, nebulized albuterol 2.5 mg q.4 hours, nebulized ipratropium 0.5 mg q.4 hours. Patient has received IV magnesium already. CT scan without evidence of focal pneumonia at this time agree with ceftriaxone and azithromycin pending blood cultures. Agree with transfer to ICU for closer monitoring. 01/28: Patient wear the noninvasive ventilator with the AVAPS mode and the settings above last night with a blood gas this morning of 7.38/61/66. When I enter the room the patient was on noninvasive ventilator and she said that she is breathing much better, near normal. She has no wheezing on exam. Her saturations were 94%. She was changed to 5 L nasal cannula her saturations remain 92-94%. I was then able to obtain a brief history. Patient follows with her television technician Dr. Tim in [place] and in March of 2022 she was started on a biologic agent and did well for 6 months with no hospitalizations. In a for approximately 4 months ago her insurance changed and she could not received the biologic and her symptoms worsened with multiple exacerbations and hospitalizations. She recently was able to get the biologic agent approved and she received an injection on 01/08/2023. Plan: No wheezing currently and I will decrease her Solu-Medrol to 20 mg IV q.6, continue albuterol and ipratropium nebulizers q.4 hours. I will restart the patient's home montelukast and loratadine. Goal oxygen saturation 90-94%. Wean oxygen as tolerated. Blood cultures pending on ceftriaxone and azithromycin day 2. Discussed with Dr. Irvin, suitable for transfer out of ICU from my perspective, will follow with you (2) Respiratory failure with hypoxia and hypercapnia: Code(s): J96.91 - Respiratory failure, unspecified with hypoxia; J96.92 - Respiratory failure, unspecified with hypercapnia Status: Acute Assessment and Plan: Patient carries a diagnosis of obstructive sleep apnea on BiPAP and also on 2 L nasal cannula at home. Patient with acute on chronic hypercarbic and hypoxemic respiratory failure. Most recent blood gas demonstrated acute on chronic hypercarbic respiratory failure on BiPAP rate of 20 pressures 25/5 in 35% FiO2 with a pH of 7.26/85/68. AVAPS rate of 25, tidal volume 550, EPAP 8, minimal inspiratory pressure 9, maximal inspiratory pressure 35, rise of 2 and 35% FiO2. Will follow patient clinically and obtain a blood gas in the morning. Will attempt to obtain a download remotely on 01/28/2023. 01/28: Wears BiPAP through [employer] and her oxygen which she uses 2 L nasal cannula p.r.n. will attempt to to obtain a download from [employer]. Will see if the patient can bring her home machine to the hospital. She has improved and once we have her settings from her download will try to mimic these with the hospital noninvasive ventilator. Subjective Date/time seen: 01/28/23 08:35 Interval history: 01/27/2023:? This is a new pulmonary consult for asthma, obstructive sleep apnea on BiPAP and acute on chronic hypercarbic and hypoxemic respiratory failure. 53 YO with morbid obesity, hypertension, chronic hypoxic respiratory f
[2023-01-28] MEDS: MONTELUKAST SODIUM 10 MG TABLET PO (08:47)
[2023-01-28] MEDS: LORATADINE 10 MG TABLET PO (08:47)
[2023-01-28] MEDS: ENOXAPARIN 40 MG/0.4 ML SYRINGE SUB-Q (08:47)
--- NOTE | 2023-01-28 12:15 | WPDCNINT ---
Assessment and Plan Assessment and plan (1) Acute and chronic respiratory failure with hypercapnia: Code(s): J96.22 - Acute and chronic respiratory failure with hypercapnia Status: Acute Assessment and Plan: Patient presented with increasing shortness of breath, hypercapnia on ABGs despite being on BiPAP in the IMU, there pulmonology was consulted and placed the patient on AVAPS and patient was transferred to the ICU on 01/27/2023 for closer monitoring -01/28: ABGs on AVAPS much improved, -remains on bronchodilators and steroids -started ceftriaxone and azithromycin on 01/27 for possible pneumonia/aspiration/atelectasis -pulmonology following -currently on nasal cannula -will place on AVAPS at night and when sleeping during the day -breathing much improved this morning (2) Asthma exacerbation: Code(s): J45.901 - Unspecified asthma with (acute) exacerbation Status: Acute Assessment and Plan: Continue bronchodilators, steroids and antibiotics for now -AVAPS as needed -blood cultures pending (3) Iron deficiency anemia: Code(s): D50.9 - Iron deficiency anemia, unspecified Status: Acute Assessment and Plan: Continue ferrous sulfate tablets (4) Obstructive sleep apnea: Code(s): G47.33 - Obstructive sleep apnea (adult) (pediatric) Status: Chronic Assessment and Plan: Continue BiPAP/AVAPS (5) Obesity hypoventilation syndrome: Code(s): E66.2 - Morbid (severe) obesity with alveolar hypoventilation Status: Acute Assessment and Plan: Patient does wear BiPAP at home Plan DVT prophylaxis: Lovenox Stress ulcer prophylaxis: Protonix Nutrition: Heart healthy diet Code Status: Full code Critical Care Time Spent: 47 minutes Discussed with pulmonology, okay to transfer out of the ICU Due to a high probability of clinically significant, life threatening deterioration, the patient required my highest level of preparedness to intervene emergently and I personally spent this critical care time directly and personally managing the patient. This critical care time included obtaining a history; examining the patient; pulse oximetry; ordering and review of studies; arranging urgent treatment with development of a management plan; evaluation of patient's response to treatment; frequent reassessment; and discussions with other providers. It was exclusive of separately billable procedures and treating other patients and teaching time. Please see Assessment and Plan section and the rest of the note for further information on patient assessment and treatment This dictation may have been done utilizing a voice recognition system. Attempts have been made to correct errors. However, there may be uncorrected grammatical, spelling, and recognitions errors present. Insole Stiffener Consult Note Consult date: 01/28/23 Reason for consult: Acute hypercapnic Respiratory failure, asthma exacerbation HPI: Angie Leos is a 53 year old female with history of hypertension, chronic hypoxic respiratory failure, asthma, obstructive sleep apnea, obesity hypoventilation syndrome on BiPAP at night, fibromyalgia, GERD, morbid obesity presented the ED on 01/27/2023 with complains shortness of breath for the last 2 weeks. She was evaluated another emergency department approximately 4 days prior to admission, was discharged home with nebulizer treatments and steroids. Patient was found to be hypercapnic with pCO2 in between 80-84 despite being on BiPAP in the intermediate Unit. Pulmonology was consulted from there and patient was placed on AVAPS with improvement in pCO2 level this morning, hemodynamically stable, adequate urine output, afebrile. Patient was started on azithromycin and ceftriaxone S CT chest showed mild bilateral patchy lung atelectasis, no evidence of pulmonary embolism or thoracic aortic aneurysm or dissection or congestive changes. Pulmonology requested hospitalist to tra
[2023-01-28] MEDS: methylPREDNISolone SOD SUCC 40 MG VIAL 20 MG IV PUSH ×2 (13:51→17:13)
--- NOTE | 2023-01-28 16:18 | PC.NURSE ---
This patient, Angie Leos, was received from [ICU 7 ] on 01/28/23 at 1537. Patient/family oriented to unit policies and routines
--- NOTE | 2023-01-28 16:41 | WPDPN ---
Progress Note: A&P Assessment and Plan (1) Acute respiratory failure: Code(s): J96.00 - Acute respiratory failure, unspecified whether with hypoxia or hypercapnia Status: Acute Assessment and Plan: The patient has p.r.n. oxygen at 2 L per nasal cannula at home. She also has sleep apnea with obesity and has a BiPAP machine at home. The patient tells me that she has asthma. So I did order a dose of magnesium for her. Her chest x-ray was read as a following Chest X-Ray 01/27/23 09:36 Impression Suspected multiple left lung nodules measuring up to [address] scan of the chest recommended for further evaluation. The patient was given nebulizer treatments which we will continue with. She was previously on steroids will continue with steroids. Pulmonary consult was greatly be appreciated. The patient stated that she has never smoked. 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 CT a pulmonary has been ordered as well. Patient's CO2 is improving it was 86.2 now it is 80.6. However her pH is not improving. The patient is awake and she stated that if need be she would want to be intubated. Will continue to monitor. The patient is arousable and talking at times. Continue with BiPAP. Her oxygen level has improved. Repeat ABGs at 3:00 p.m.. 01/28/2023 interval history: 53-year-old female with history of asthma presented with complaint of shortness of breath and was found to have exacerbation of asthma initially patient was admitted medical floor however her symptoms were worsening and patient was transferred to ICU and placed on BiPAP, this morning patient states feeling much better compared to when she arrived, seen by pulmonology and agreed as well as aerodynamicist, patient now clinically stable will transfer patient out of ICU medical for, continue present greenhouse manager and her symptoms of will taper methylprednisone and monitor, will have a PT OT evaluate the patient. (2) Obstructive sleep apnea: Code(s): G47.33 - Obstructive sleep apnea (adult) (pediatric) Status: Chronic Assessment and Plan: The patient stated that she has a BiPAP machine at home but is not aware for settings. (3) Iron deficiency anemia: Code(s): D50.9 - Iron deficiency anemia, unspecified Status: Acute Assessment and Plan: Continue with current treatment. Continue with iron supplement. (4) Hypertension: Code(s): I10 - Essential (primary) hypertension Status: Chronic Assessment and Plan: P.r.n. hydralazine. According to home medications she is on torsemide and Norvasc. (5) Anxiety: Code(s): F41.9 - Anxiety disorder, unspecified Status: Acute Assessment and Plan: Continue with home medications when she is off the BiPAP. For now will do p.r.n. Ativan. Subjective Date/time seen: 01/28/23 16:41 Interval history: Shortness of breath HPI-Narrative: This is a 53-year-old female patient who has a history of asthma.? She states that she has a BiPAP machine at home.? She also wears oxygen at 2 L per nasal cannula as needed.? She stated that she has been short of breath for the last 2 weeks.? She has been evaluated at another emergency department approximately 4 days ago.? It was noted that her oxygen level was 70% at that time.? She was given nebulizer treatment and discharged home on steroids.? She has not been feeling any better.? She reported that she has a low-grade fever she has worsening cough.? Her white count is normal.? Her H&H is 8.1 and 31.0 her last known H&H on 10/22/2022 was 9.6 and 33.6.? On her ABGs her pH was 7.293 and her bicarb was 86.2.? The patient was placed on a BiPAP with settings of 20/6 with a rate of 20 and 40% bleed in.? The patient actually sat up and was asking about her boyfriend when I evaluated her in the emergency room.? The patient was found to be negative for influenza A/B and COVID.? Chest
[2023-01-28] MEDS: AZITHROMYCIN 500 MG/NS 250 ML 500 MG/250 ML BAG 250 MG IVPB (18:06)
[2023-01-28] MEDS: ACETAMINOPHEN 500 MG TABLET 1000 MG PO (20:26)
[2023-01-29] VITALS (25 sets, daily range): BP systolic 118–153; BP diastolic 71–87; PULSE 87–110; RESP 18–23; TEMP 36.1–37.1; O2SAT 88–98
[2023-01-29] MEDS: methylPREDNISolone SOD SUCC 40 MG VIAL 20 MG IV PUSH ×2 (00:21→05:25)
[2023-01-29] MEDS: IPRATROPIUM BR 0.02% INH SOLN 0.5 MG/2.5 ML VIAL INHALATION ×6 (01:02→20:45)
[2023-01-29] MEDS: ALBUTEROL SULFATE NEB 2.5 MG/3 ML INH INHALATION ×6 (01:02→20:45)
[2023-01-29] MEDS: LORATADINE 10 MG TABLET PO (08:28)
[2023-01-29] MEDS: ENOXAPARIN 40 MG/0.4 ML SYRINGE SUB-Q (08:28)
[2023-01-29] MEDS: MONTELUKAST SODIUM 10 MG TABLET PO (08:28)
--- NOTE | 2023-01-29 08:45 | PM.PNPUL ---
Progress Note: A&P Assessment and Plan (1) Asthma exacerbation: Code(s): J45.901 - Unspecified asthma with (acute) exacerbation Status: Acute Assessment and Plan: Patient with a history of asthma and currently is on BiPAP and is unable to provide a meaningful history. I spoke with the ED physician and she has been shortness of breath for 2 weeks was seen in the ER 4 days ago and discharged on prednisone taper for presumed asthma exacerbation. Patient now has acute on chronic hypercarbic and hypoxemic respiratory failure and states that she is breathing better with Solu-Medrol and bronchodilators. CT angiogram of the chest shows no PE, subtle areas of mosaic attenuation throughout all lung uriostegui, no focal consolidations. Plan: Agree with treatment for asthma exacerbation with Solu-Medrol 60 mg IV q.6 hours, nebulized albuterol 2.5 mg q.4 hours, nebulized ipratropium 0.5 mg q.4 hours. Patient has received IV magnesium already. CT scan without evidence of focal pneumonia at this time agree with ceftriaxone and azithromycin pending blood cultures. Agree with transfer to ICU for closer monitoring. 01/28: Patient wear the noninvasive ventilator with the AVAPS mode and the settings above last night with a blood gas this morning of 7.38/61/66. When I enter the room the patient was on noninvasive ventilator and she said that she is breathing much better, near normal. She has no wheezing on exam. Her saturations were 94%. She was changed to 5 L nasal cannula her saturations remain 92-94%. I was then able to obtain a brief history. Patient follows with her rail car loader Dr. Tim in [place] and in March of 2022 she was started on a biologic agent and did well for 6 months with no hospitalizations. In a for approximately 4 months ago her insurance changed and she could not received the biologic and her symptoms worsened with multiple exacerbations and hospitalizations. She recently was able to get the biologic agent approved and she received an injection on 01/08/2023. Plan: No wheezing currently and I will decrease her Solu-Medrol to 20 mg IV q.6, continue albuterol and ipratropium nebulizers q.4 hours. I will restart the patient's home montelukast and loratadine. Goal oxygen saturation 90-94%. Wean oxygen as tolerated. Blood cultures pending on ceftriaxone and azithromycin day 2. Transferred out of the ICU. 01/29: The patient states that she is breathing better. She is 80% back to her normal. She has a cough with no phlegm. She has a mild end-expiratory wheezes on exam. Her weight is 155.8 kg. . Plan: I will change her Solu-Medrol Solu-Medrol to 20 mg IV q.6 to prednisone 40 p.o. q.day (day 3 steroids), continue albuterol and ipratropium nebulizers q.4 hours. Continue montelukast and loratadine. I placed her on 3 L nasal cannula and her saturations were 92%. Goal oxygen saturation 90-94%. Wean oxygen as tolerated. Blood cultures pending on ceftriaxone and azithromycin day 3. Will follow with you (2) Respiratory failure with hypoxia and hypercapnia: Code(s): J96.91 - Respiratory failure, unspecified with hypoxia; J96.92 - Respiratory failure, unspecified with hypercapnia Status: Acute Assessment and Plan: Patient carries a diagnosis of obstructive sleep apnea on BiPAP and also on 2 L nasal cannula at home. Patient with acute on chronic hypercarbic and hypoxemic respiratory failure. Most recent blood gas demonstrated acute on chronic hypercarbic respiratory failure on BiPAP rate of 20 pressures 25/5 in 35% FiO2 with a pH of 7.26/85/68. AVAPS rate of 25, tidal volume 550, EPAP 8, minimal inspiratory pressure 9, maximal inspiratory pressure 35, rise of 2 and 35% FiO2. Will follow patient clinically and obtain a blood gas in the morning. Will attempt to obtain a download remotely on 01/28/2023. 01/28: Wears BiPAP through [employer] and her oxygen which she uses 2 L nasal cannula p.r.n. will attempt to to obt
[2023-01-29] MEDS: predniSONE 20 MG TABLET 40 MG PO (10:25)
--- NOTE | 2023-01-29 14:01 | PCRCNOTE ---
NEENA WILL BE IN TODAY TO RETRIEVE DOWNLOAD FROM HER HOME TRILOGY UNIT AND WILL GIVE PATIENT A NEW MASK REQUESTED. DR OSBORN IS AWARE.
--- NOTE | 2023-01-29 14:06 | WPDPN ---
Progress Note: A&P Assessment and Plan (1) Acute respiratory failure: Code(s): J96.00 - Acute respiratory failure, unspecified whether with hypoxia or hypercapnia Status: Acute Assessment and Plan: The patient has p.r.n. oxygen at 2 L per nasal cannula at home. She also has sleep apnea with obesity and has a BiPAP machine at home. The patient tells me that she has asthma. So I did order a dose of magnesium for her. Her chest x-ray was read as a following Chest X-Ray 01/27/23 09:36 Impression Suspected multiple left lung nodules measuring up to [address] scan of the chest recommended for further evaluation. The patient was given nebulizer treatments which we will continue with. She was previously on steroids will continue with steroids. Pulmonary consult was greatly be appreciated. The patient stated that she has never smoked. 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 CT a pulmonary has been ordered as well. Patient's CO2 is improving it was 86.2 now it is 80.6. However her pH is not improving. The patient is awake and she stated that if need be she would want to be intubated. Will continue to monitor. The patient is arousable and talking at times. Continue with BiPAP. Her oxygen level has improved. Repeat ABGs at 3:00 p.m.. 01/29/2023 interval history: 53-year-old female with history of asthma presented with complaint of shortness of breath and was found to have exacerbation of asthma initially patient was admitted medical floor however her symptoms were worsening and patient was transferred to ICU and placed on BiPAP, this morning patient states feeling much better compared to when she arrived, seen by pulmonology and agreed as well as roll builder, patient now clinically stable was transferred patient out of ICU to medical floor, today patient states feeling much better still has wheezing seen by Dr. Gleason and taper methylprednisone to oral prednisone, continued bronchodilator, Singulair and Claritin, patient with chronic respiratory failure on oxygen 2 L at home currently on 3 L will monitor and wean the patient off oxygen as tolerated, will have a PT OT evaluate the patient. (2) Obstructive sleep apnea: Code(s): G47.33 - Obstructive sleep apnea (adult) (pediatric) Status: Chronic Assessment and Plan: The patient stated that she has a BiPAP machine at home but is not aware for settings. (3) Iron deficiency anemia: Code(s): D50.9 - Iron deficiency anemia, unspecified Status: Acute Assessment and Plan: Continue with current treatment. Continue with iron supplement. (4) Hypertension: Code(s): I10 - Essential (primary) hypertension Status: Chronic Assessment and Plan: P.r.n. hydralazine. According to home medications she is on torsemide and Norvasc. (5) Anxiety: Code(s): F41.9 - Anxiety disorder, unspecified Status: Acute Assessment and Plan: Continue with home medications when she is off the BiPAP. For now will do p.r.n. Ativan. Subjective Date/time seen: 01/29/23 14:06 Interval history: The patient has p.r.n. oxygen at 2 L per nasal cannula at home. She also has sleep apnea with obesity and has a BiPAP machine at home. The patient tells me that she has asthma. So I did order a dose of magnesium for her. Her chest x-ray was read as a following Chest X-Ray 01/27/23 09:36 Impression Suspected multiple left lung nodules measuring up to [address] scan of the chest recommended for further evaluation. The patient was given nebulizer treatments which we will continue with. She was previously on steroids will continue with steroids. Pulmonary consult was greatly be appreciated. The patient stated that she has never smoked. 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 CT a pulmonary has been ordered
--- NOTE | 2023-01-29 14:18 | PCPTNOTE ---
On 01/29/23, the student, Erma Panchal, provided care and completed [email or web address] documentation on this patient. I have reviewed the student's documentation and agree with the findings.
[2023-01-29] MEDS: AZITHROMYCIN 500 MG/NS 250 ML 500 MG/250 ML BAG 250 MG IVPB (18:05)
[2023-01-30] VITALS (19 sets, daily range): BP systolic 125–167; BP diastolic 67–76; PULSE 85–97; RESP 18–23; TEMP 36.2–36.6; O2SAT 93–100
[2023-01-30] MEDS: IPRATROPIUM BR 0.02% INH SOLN 0.5 MG/2.5 ML VIAL INHALATION ×5 (00:16→21:38)
[2023-01-30] MEDS: ALBUTEROL SULFATE NEB 2.5 MG/3 ML INH INHALATION ×5 (00:16→21:37)
[2023-01-30] MEDS: predniSONE 20 MG TABLET 40 MG PO (09:04)
[2023-01-30] MEDS: ENOXAPARIN 40 MG/0.4 ML SYRINGE SUB-Q (09:04)
[2023-01-30] MEDS: MONTELUKAST SODIUM 10 MG TABLET PO (09:05)
[2023-01-30] MEDS: LORATADINE 10 MG TABLET PO (09:08)
--- NOTE | 2023-01-30 10:05 | PM.PNPUL ---
Progress Note: A&P Assessment and Plan (1) Asthma exacerbation: Code(s): J45.901 - Unspecified asthma with (acute) exacerbation Status: Acute Assessment and Plan: Patient with a history of asthma and currently is on BiPAP and is unable to provide a meaningful history. I spoke with the ED physician and she has been shortness of breath for 2 weeks was seen in the ER 4 days ago and discharged on prednisone taper for presumed asthma exacerbation. Patient now has acute on chronic hypercarbic and hypoxemic respiratory failure and states that she is breathing better with Solu-Medrol and bronchodilators. CT angiogram of the chest shows no PE, subtle areas of mosaic attenuation throughout all lung uriostegui, no focal consolidations. Plan: Agree with treatment for asthma exacerbation with Solu-Medrol 60 mg IV q.6 hours, nebulized albuterol 2.5 mg q.4 hours, nebulized ipratropium 0.5 mg q.4 hours. Patient has received IV magnesium already. CT scan without evidence of focal pneumonia at this time agree with ceftriaxone and azithromycin pending blood cultures. Agree with transfer to ICU for closer monitoring. 01/28: Patient wear the noninvasive ventilator with the AVAPS mode and the settings above last night with a blood gas this morning of 7.38/61/66. When I enter the room the patient was on noninvasive ventilator and she said that she is breathing much better, near normal. She has no wheezing on exam. Her saturations were 94%. She was changed to 5 L nasal cannula her saturations remain 92-94%. I was then able to obtain a brief history. Patient follows with her regional operations manager Dr. Tim in [place] and in March of 2022 she was started on a biologic agent and did well for 6 months with no hospitalizations. In a for approximately 4 months ago her insurance changed and she could not received the biologic and her symptoms worsened with multiple exacerbations and hospitalizations. She recently was able to get the biologic agent approved and she received an injection on 01/08/2023. Plan: No wheezing currently and I will decrease her Solu-Medrol to 20 mg IV q.6, continue albuterol and ipratropium nebulizers q.4 hours. I will restart the patient's home montelukast and loratadine. Goal oxygen saturation 90-94%. Wean oxygen as tolerated. Blood cultures pending on ceftriaxone and azithromycin day 2. Transferred out of the ICU. 01/29: The patient states that she is breathing better. She is 80% back to her normal. She has a cough with no phlegm. She has a mild end-expiratory wheezes on exam. Her weight is 155.8 kg. . Plan: I will change her Solu-Medrol Solu-Medrol to 20 mg IV q.6 to prednisone 40 p.o. q.day (day 3 steroids), continue albuterol and ipratropium nebulizers q.4 hours. Continue montelukast and loratadine. I placed her on 3 L nasal cannula and her saturations were 92%. Goal oxygen saturation 90-94%. Wean oxygen as tolerated. Blood cultures pending on ceftriaxone and azithromycin day 3. 01/30 patient continues to improve and states that she is feeling better than she has in a few months. She states she is overall 80% back to her baseline. She has a dry cough. No wheeze on exam. Currently on 4 L nasal cannula with saturations 94%. She has been out of bed. Plan: Continue prednisone 40 p.o. q.day, day 4 steroids, continue albuterol and ipratropium nebulizers q.4 hours. Continue loratadine and montelukast. Goal saturation 90-94%. Wean as tolerated. No evidence of pneumonia, I will discontinue ceftriaxone and change to oral azithromycin, day 4. If the patient remains clinically stable anticipate discharge on 01/31 on these pulmonary medications: Prednisone 40 mg p.o. q.day x3 days Azithromycin 250 mg p.o. x1 day Symbicort 160-4.5 at 2 puffs q.12 hours. Tiotropium bromide 1.25 mcg at 2 puffs q.day Albuterol inhaler 2 puffs q.4 hours p.r.n. shortness of breath or wheezing. Albuterol 2.5 mg nebulized q.4 hours p.r.n. shortness
--- NOTE | 2023-01-30 14:59 | PM.IMPN ---
Progress Note: A&P Assessment and Plan (1) Acute respiratory failure: Code(s): J96.00 - Acute respiratory failure, unspecified whether with hypoxia or hypercapnia Status: Acute Assessment and Plan: The patient has p.r.n. oxygen at 2 L per nasal cannula at home. She also has sleep apnea with obesity and has a BiPAP machine at home. The patient tells me that she has asthma. So I did order a dose of magnesium for her. Her chest x-ray was read as a following Chest X-Ray 01/27/23 09:36 Impression Suspected multiple left lung nodules measuring up to [address] scan of the chest recommended for further evaluation. The patient was given nebulizer treatments which we will continue with. She was previously on steroids will continue with steroids. Pulmonary consult was greatly be appreciated. The patient stated that she has never smoked. 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 CT a pulmonary has been ordered as well. Patient's CO2 is improving it was 86.2 now it is 80.6. However her pH is not improving. The patient is awake and she stated that if need be she would want to be intubated. Will continue to monitor. The patient is arousable and talking at times. Continue with BiPAP. Her oxygen level has improved. Repeat ABGs at 3:00 p.m.. 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 Gleason and taper methylprednisone to oral prednisone, continued bronchodilator, Singulair and Claritin, patient with chronic respiratory failure on oxygen 2 L at home currently on 3 L will monitor and wean the patient off oxygen as tolerated, will have a PT OT evaluate the patient. 01/30/2023: 53-year-old female with history of shortness of breath. With as sebaceous. Symptoms worsened was transferred to ICU needing BiPAP. Pulmonary following. Patient stable and transferred to the medical floor. On steroid. Montelukast and loratadine. AVAPS at night acute on chronic respiratory failure on home oxygen 2 L via nasal cannula. (2) Obstructive sleep apnea: Code(s): G47.33 - Obstructive sleep apnea (adult) (pediatric) Status: Chronic Assessment and Plan: The patient stated that she has a BiPAP machine at home but is not aware for settings. (3) Iron deficiency anemia: Code(s): D50.9 - Iron deficiency anemia, unspecified Status: Acute Assessment and Plan: Continue with current treatment. Continue with iron supplement. (4) Hypertension: Code(s): I10 - Essential (primary) hypertension Status: Chronic Assessment and Plan: P.r.n. hydralazine. According to home medications she is on torsemide and Norvasc. (5) Anxiety: Code(s): F41.9 - Anxiety disorder, unspecified Status: Acute Assessment and Plan: Continue with home medications when she is off the BiPAP. For now will do p.r.n. Ativan. Subjective Date/time seen: 01/30/23 14:59 Interval history: The patient has p.r.n. oxygen at 2 L per nasal cannula at home. She also has sleep apnea with obesity and has a BiPAP machine at home. The patient tells me that she has asthma. So I did order a dose of magnesium for her. Her chest x-ray was read as a following Chest X-Ray 01/27/23 09:36 Impression Suspected multiple left lung nodules measuring up to [address] scan of the chest recommended for further evaluation. The patient
[2023-01-30] MEDS: AZITHROMYCIN 250 MG TABLET PO (17:49)
[2023-01-31] VITALS (13 sets, daily range): BP systolic 133–164; BP diastolic 60–81; PULSE 91–101; RESP 18–22; TEMP 36.2–36.6; O2SAT 83–97
[2023-01-31 05:57] LABS: Alveolar/Arterial O2 Gradient 110.6 mmHg; Base Excess ABG 10.6 mEq/l (+/-2.0); Fractional Inspired Oxygen 36 %; HCO3 ABG 38.3 mEq/l (22.0-26.0); Oxygen Saturation ABG 90.4 % (95.0-100.0); PO2 ABG 63.7 mmHg (80.0-100.0); PO2 FiO2 Ratio Arterial Blood 1.77 %; Total Hemoglobin 10.5 g/dL (12.0-18.0)
[2023-01-31 06:02] LABS: Oxyhemoglobin 87.8 % THb (90.0-100.0)
[2023-01-31 06:03] LABS: Device BIPAP; Modified Allen's Test Pass; Site Drawn RIGHT RADIAL
[2023-01-31 06:04] LABS: Expiratory Pressure 12 cmH2O; Inspiratory Pressure 500 cmH2O
[2023-01-31 06:40] LABS: Basophils Percent Auto 0.2 % (0.2-1.2); Eosinophils Absolute Auto 0.1 K/mm3 (0-0.3); Eosinophils Percent Auto 1.4 % (0-4.4); Hematocrit 33.1 % (37.0-47.0); Hemoglobin 8.7 g/dL (12.0-15.0); Immature Granulocyte Absolute 0.03 K/mm3 (0.00-0.031); Immature Granulocyte Percent A 0.5 % (0-0.5); Lymphocytes Absolute Auto 1.61 K/mm3 (0.9-3.2); Mean Corpuscular HGB Conc 26.3 g/dl (32-36); Mean Corpuscular Hemoglobin 18.8 pg (26-34); Mean Corpuscular Volume 71.5 fl (80-100); Mean Platelet Volume 8.7 fl (7.4-10.4); Monocytes Absolute Auto 0.8 K/mm3 (0.1-0.6); Monocytes Percent Auto 12.9 % (2.6-8.5); Neutrophils Absolute Auto 3.9 K/mm3 (1.3-6.7); Platelet Count Result 248 k/mm3 (150-375); Red Blood Count 4.63 M/mm3 (4.2-5.4); Red Cell Distribution Width 20.5 % (11.5-14.5); White Blood Count 6.4 K/mm3 (4.5-10.0)
[2023-01-31 07:22] LABS: Alanine Aminotransferase 25 U/L (6-35); Albumin Level 3.6 g/dL (3.5-5.1); Alkaline Phosphatase 105 U/L (38-126); Anion Gap 2 mmol/L (8-16); Aspartate Amino Transferase 24 U/L (14-36); Bilirubin,Total 0.5 mg/dL (0.2-1.3); Blood Urea Nitrogen 20 mg/dL (7-17); Calcium 8.5 mg/dL (8.4-10.2); Carbon Dioxide 37 mmol/L (22-30); Chloride 96 mmol/L (98-107); Estimated CRCL calculation 141 ml/min; Estimated Glomerular Filt Rate > 60; Glucose 87 mg/dL (65-110); Magnesium 2.2 mg/dL (1.6-2.3); Potassium 3.9 mmol/L (3.4-5.0); Sodium 135 mmol/L (137-145)
[2023-01-31 07:29] LABS: Anisocytosis 2+ (NORMAL); Hypochromasia 2+ (NORMAL); Platelet Estimate Adequate (Adequate)
[2023-01-31 07:30] LABS: Microcytosis 2+ (NORMAL); Schistocytes None Seen (NORMAL)
[2023-01-31 08:04] LABS: Alveolar/Arterial O2 Gradient 151.3 mmHg; Base Excess ABG 9.8 mEq/l (+/-2.0); Fractional Inspired Oxygen 44 %; HCO3 ABG 37.5 mEq/l (22.0-26.0); Oxygen Content ABG 13.2 %vol (16.0-22.0); Oxygen Saturation ABG 94.9 % (95.0-100.0); Oxyhemoglobin 93.4 % THb (90.0-100.0); PO2 ABG 81.4 mmHg (80.0-100.0); PO2 FiO2 Ratio Arterial Blood 1.85 %
[2023-01-31 08:06] LABS: PCO2 ABG 71.1 mmHg (35.0-45.0)
[2023-01-31 08:07] LABS: Device NASAL CANNULA; Modified Allen's Test Pass; Site Drawn LEFT RADIAL
[2023-01-31] MEDS: ALBUTEROL SULFATE NEB 2.5 MG/3 ML INH INHALATION ×2 (08:26→12:50)
[2023-01-31] MEDS: IPRATROPIUM BR 0.02% INH SOLN 0.5 MG/2.5 ML VIAL INHALATION ×2 (08:27→12:50)
[2023-01-31] MEDS: ENOXAPARIN 40 MG/0.4 ML SYRINGE SUB-Q (09:31)
[2023-01-31] MEDS: predniSONE 20 MG TABLET 40 MG PO (09:31)
[2023-01-31] MEDS: MONTELUKAST SODIUM 10 MG TABLET PO (09:31)
[2023-01-31] MEDS: LORATADINE 10 MG TABLET PO (09:34)
--- NOTE | 2023-01-31 12:30 | PM.PNPUL ---
Progress Note: A&P Assessment and Plan (1) Asthma exacerbation: Code(s): J45.901 - Unspecified asthma with (acute) exacerbation Status: Acute Assessment and Plan: Patient with a history of asthma and currently is on BiPAP and is unable to provide a meaningful history. I spoke with the ED physician and she has been shortness of breath for 2 weeks was seen in the ER 4 days ago and discharged on prednisone taper for presumed asthma exacerbation. Patient now has acute on chronic hypercarbic and hypoxemic respiratory failure and states that she is breathing better with Solu-Medrol and bronchodilators. CT angiogram of the chest shows no PE, subtle areas of mosaic attenuation throughout all lung uriostegui, no focal consolidations. Plan: Agree with treatment for asthma exacerbation with Solu-Medrol 60 mg IV q.6 hours, nebulized albuterol 2.5 mg q.4 hours, nebulized ipratropium 0.5 mg q.4 hours. Patient has received IV magnesium already. CT scan without evidence of focal pneumonia at this time agree with ceftriaxone and azithromycin pending blood cultures. Agree with transfer to ICU for closer monitoring. 01/28: Patient wear the noninvasive ventilator with the AVAPS mode and the settings above last night with a blood gas this morning of 7.38/61/66. When I enter the room the patient was on noninvasive ventilator and she said that she is breathing much better, near normal. She has no wheezing on exam. Her saturations were 94%. She was changed to 5 L nasal cannula her saturations remain 92-94%. I was then able to obtain a brief history. 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 Tim in [place] and in March of 2022 she was started on a biologic agent and did well for 6 months with no hospitalizations. In a for approximately 4 months ago her insurance changed and she could not received the biologic and her symptoms worsened with multiple exacerbations and hospitalizations. She recently was able to get the biologic agent approved and she received an injection on 01/08/2023. Plan: No wheezing currently and I will decrease her Solu-Medrol to 20 mg IV q.6, continue albuterol and ipratropium nebulizers q.4 hours. I will restart the patient's home montelukast and loratadine. Goal oxygen saturation 90-94%. Wean oxygen as tolerated. Blood cultures pending on ceftriaxone and azithromycin day 2. Transferred out of the ICU. 01/29: The patient states that she is breathing better. She is 80% back to her normal. She has a cough with no phlegm. She has a mild end-expiratory wheezes on exam. Her weight is 155.8 kg. . Plan: I will change her Solu-Medrol Solu-Medrol to 20 mg IV q.6 to prednisone 40 p.o. q.day (day 3 steroids), continue albuterol and ipratropium nebulizers q.4 hours. Continue montelukast and loratadine. I placed her on 3 L nasal cannula and her saturations were 92%. Goal oxygen saturation 90-94%. Wean oxygen as tolerated. Blood cultures pending on ceftriaxone and azithromycin day 3. 01/30 patient continues to improve and states that she is feeling better than she has in a few months. She states she is overall 80% back to her baseline. She has a dry cough. No wheeze on exam. Currently on 4 L nasal cannula with saturations 94%. She has been out of bed. Plan: Continue prednisone 40 p.o. q.day, day 4 steroids, continue albuterol and ipratropium nebulizers q.4 hours. Continue loratadine and montelukast. Goal saturation 90-94%. Wean as tolerated. No evidence of pneumonia, I will discontinue ceftriaxone and change to oral azithromycin, day 4. 01/31 patient states she is breathing at her baseline. Currently she is on 4 L with saturation 97%. White blood cell count 6.4, creatinine 0.6. From a pulmonary perspective patient is ready to be discharged on these pulmonary medications: Prednisone 40 mg p.o. q.day x3 days Azithromycin 250 mg p.o. x1 day Symbicort 160-4.5 at 2 puffs q.12 hours. Tiotropium bromide 1.25 mcg at 2 puffs
--- NOTE | 2023-01-31 13:26 | PM.DS ---
DS: Admitting Diagnosis Discharge Date 01/31/2023 Admitting Diagnosis Shortness of breath DS: Discharge Diagnosis Discharge Diagnosis (1) Acute respiratory failure: Code(s): J96.00 - Acute respiratory failure, unspecified whether with hypoxia or hypercapnia Status: Acute (2) Obstructive sleep apnea: Code(s): G47.33 - Obstructive sleep apnea (adult) (pediatric) Status: Chronic (3) Iron deficiency anemia: Code(s): D50.9 - Iron deficiency anemia, unspecified Status: Acute (4) Hypertension: Code(s): I10 - Essential (primary) hypertension Status: Chronic (5) Anxiety: Code(s): F41.9 - Anxiety disorder, unspecified Status: Acute DS: Summary Hospital Course Hospital Course: ?53-year-old female with history of shortness of breath.? With asthma exacerbation Symptoms worsened and was transferred to ICU needing BiPAP.? Pulmonary following.? Patient stable and transferred to the medical floor.? On steroid.? Montelukast and loratadine.? AVAPS at night acute on chronic respiratory failure on home oxygen 2 L via nasal cannula. She improved treatment and is getting discharged to home and will follow-up with pulmonary as an outpatient basis Time Spent with Patient Time attestation: Total time spent providing and/or coordinating discharge services: 45 minutes Exam Narrative: morbidly obese Patient is comfortable, NAD HEENT: eyes are clear and none icteric LUNGS: normal respiratory effort ABD: distended Lower extremities: no edema SKIN: nonjaundiced Neuro: grossly intact. DS: Data Data Completed and Pending Labs on day of discharge: Labs from last 24 hours 01/31/23 01/31/23 01/31/23 07:53 06:19 05:21 WBC 6.4 RBC 4.63 Hgb 8.7 L Hct 33.1 L MCV 71.5 L MCH 18.8 L MCHC 26.3 L RDW 20.5 H Plt Count 248 MPV 8.7 Immature Gran % (Auto) 0.5 Neut % (Auto) 60.0 Lymph % (Auto) 25.0 [place] % (Auto) 12.9 H Eos % (Auto) 1.4 Baso % (Auto) 0.2 Lymph # (Auto) 1.61 [place] # (Auto) 0.8 H Eos # (Auto) 0.1 Baso # (Auto) 0.0 Abs Immat Gran (auto) 0.03 Absolute Neuts (auto) 3.9 Absolute Nucleated RBC 0.0 Nucleated RBC % 0.0 Platelet Estimate Adequate Hypochromasia 2+ Anisocytosis 2+ Microcytosis 2+ Schistocytes None seen Puncture Site Left radial Right radial ABG pH 7.340 L 7.350 ABG pCO2 71.1 H* 71.0 H* ABG pO2 81.4 63.7 L ABG PO2/FiO2 Ratio 1.85 1.77 ABG HCO3 37.5 H 38.3 H ABG O2 Saturation 94.9 L 90.4 L ABG O2 Content 13.2 L 13.0 L ABG Base Excess 9.8 10.6 A-a Gradient 151.3 110.6 Oxyhemoglobin 93.4 87.8 L* Total Hemoglobin 10.0 L 10.5 L O2 Delivery Device Nasal cannula Bipap O2 Liters/Min 6.0 Seismic Engineer FiO2 44 36 Expiratory Pressure 12 Inspiratory Pressure 500 Sodium 135 L Potassium 3.9 Chloride 96 L Carbon Dioxide 37 H Anion Gap 2 L BUN 20 H Creatinine 0.60 L Estim Creat Clear Calc 141 Estimated GFR > 60 Glucose 87 Calcium 8.5 Magnesium 2.2 Total Bilirubin 0.5 AST 24 ALT 25 Alkaline Phosphatase 105 Total Protein 7.0 Albumin 3.6 Preliminary micro results at discharge 01/27/23 18:54 Blood Culture - Preliminary Blood 01/27/23 18:52 Blood Culture - Preliminary Blood Imaging Radiologist's impression: ITS Impressions Chest X-Ray 01/27/23 09:36 Impression: Suspected multiple left lung nodules measuring up to [address] scan of the chest recommended for further evaluation. Chest CTA 01/27/23 14:27 IMPRESSION: Scattered bilateral mild patchy lung atelectasis No evidence of pulmonary embolism or thoracic aortic aneurysm or dissection or congestive change Bilateral old rib fractures, including multiple ununited chronic rib fractures on the left Discharge Plan Discharge Attending physician on discharge: Cipriano Alvarado
--- NOTE | 2023-01-31 15:49 | HOMEO2EVAL ---
Evaluation was performed at [facility] Home Oxygen Evaluation RC: Home Oxygen (O2) Evaluation Start: 01/31/23 12:43 Freq: ONCE Status: Active Protocol: RPE Activity Type Activity Date Activity User E-sign Co-sign Detail Recorded Client Recorded Date Recorded By Document 01/31/23 13:23 [email or web address] [email or web address] 01/31/23 15:49 CMM Document 01/31/23 15:15 [email or web address] [email or web address] 01/31/23 15:49 CMM Document 01/31/23 15:26 [email or web address] [email or web address] 01/31/23 15:49 CMM Document 01/31/23 15:30 [email or web address] [email or web address] 01/31/23 15:49 CMM Document 01/31/23 15:46 [email or web address] [email or web address] 01/31/23 15:49 CMM 01/31/23 01/31/23 01/31/23 13:23 15:15 15:26 Home O2 Evaluation [Oxygen] -Test Phase Exercise Resting Exercise -Oxygen Delivery Nasal Cannula Room Air Nasal Cannula -Fraction of Inspired Oxygen (%) 24 21 28 [Pulse Oximetry] -Pulse Oximetry (90-100 %) 91 88 L 93 [Pulse Rate] -Pulse Rate (60-100 beats/min) 100 101 H 100 [Evaluation] -Activity Tolerance Good Good Good -Rating of Perceived Dyspnea (PD) +1 Mild, +1 Mild, +1 Mild, Noticeable to Noticeable to Noticeable to the Participant the Participant the Participant but Not to an but Not to an but Not to an Observer Observer Observer -Rate of Perceived Exertion (PE) 9 Very light 9 Very light 9 Very light Query Text:Click the Protocol Button to View the RPE Scale [Exercise] -Ambulation Distance (feet) 10 10 10 -Ambulation Distance (meters) 3.04 3.04 3.04 [Charges] -Treatment Charges O2 Evaluation - Inpatient 01/31/23 01/31/23 15:30 15:46 Home O2 Evaluation [Oxygen] -Test Phase Exercise Exercise -Oxygen Delivery Nasal Cannula Nasal Cannula -Fraction of Inspired Oxygen (%) 28 24 [Pulse Oximetry] -Pulse Oximetry (90-100 %) 93 91 [Pulse Rate] -Pulse Rate (60-100 beats/min) 100 100 [Evaluation] -Activity Tolerance Good Good -Rating of Perceived Dyspnea (PD) +1 Mild, +1 Mild, Noticeable to Noticeable to the Participant the Participant but Not to an but Not to an Observer Observer -Rate of Perceived Exertion (PE) 9 Very light 9 Very light Query Text:Click the Protocol Button to View the RPE Scale [Exercise] -Ambulation Distance (feet) 5 5 -Ambulation Distance (meters) 1.52 1.52 [Charges] -Treatment Charges
--- NOTE | 2023-01-31 15:50 | PCRCNOTE ---
Home 02 eval complete, pt requires no change from current home oxygen setting.
[2023-01-31] MEDS: AZITHROMYCIN 250 MG TABLET PO (17:05)
== END 2023-01-31 17:05 | disposition home or self-care (01) | DRG 189 ==
LOC: ANHED 09:54 → ANHIMU 14:29 → ANHICU 17:39 → ANH3MEDSUR 01-28 16:06
PROVIDERS: Internal Medicine; Internal Medicine Pulmonary Disease; Nurse Practitioner; Admitting Provider Family Medicine; Emergency Provider General Practice; PCP Nurse Practitioner Family; Visit Provider Internal Medicine
DX: J96.22 Acute and chronic respiratory failure with hypercapnia (principal); Z68.44 Body mass index [BMI] 60.0-69.9, adult; J45.901 Unspecified asthma with (acute) exacerbation; E66.2 Morbid (severe) obesity with alveolar hypoventilation; J96.21 Acute and chronic respiratory failure with hypoxia; Z20.822 Contact with and (suspected) exposure to COVID-19; D50.9 Iron deficiency anemia, unspecified; I10 Essential (primary) hypertension; F41.9 Anxiety disorder, unspecified; K21.9 Gastro-esophageal reflux disease without esophagitis; M79.7 Fibromyalgia; J32.9 Chronic sinusitis, unspecified; R91.8 Other nonspecific abnormal finding of lung field; Z99.81 Dependence on supplemental oxygen; Z90.710 Acquired absence of both cervix and uterus
CPT/HCPCS: 36415; 36600; 71046; 71275; 80053; 82375; 82805; 83050; 83690; 83735; 83880; 85025; 85610; 85730; 87040; 87086; 87636; 93005; 94002; 94003; 94618; 94640; 94762; 97161; 97165; 99291; A9270; J0456; J0696; J1650; J2920; J2930; J3475; J7512; Q9967

== ENCOUNTER 2023-03-12 14:27 | Inpatient (IN) | payer MEDICARE, SELFPAY ==
[2023-03-12] VITALS (17 sets, daily range): BP systolic 115–187; BP diastolic 48–91; PULSE 80–105; RESP 18–24; TEMP 36.2–37.2; O2SAT 75–100; BMI 61.2
--- NOTE | ~2023-03-12 | XR_ITS ---
XR chest ET placement DATE: 03/13/2023 02:38 INDICATION: ET tube insertion TECHNIQUE: Portable AP chest on 03/13/2023 0222 hours COMPARISON: None FINDINGS: ET tube tube is in satisfactory position. Orogastric tube is not readily identified in the lower thorax. Heart size appears within normal range. No pulmonary consolidation, pleural effusion or pneumothorax is evident on this limited portable study. Bilateral old rib fractures are noted. IMPRESSION: ET tube in satisfactory position Reviewed, dictated and finalized at [facility]. Reviewed, dictated and finalized at location A.
--- NOTE | ~2023-03-12 | CT_ITS ---
EXAMINATION: CTA chest PE protocol DATE: 03/13/2023 06:47 INDICATION: Respiratory failure, hypoxia, hypercapnia TECHNIQUE: Computed tomography angiography (CTA) of the chest was performed with 100 mL Omnipaque-350 intravenous contrast timed to evaluate the pulmonary arteries. Coronal maximum intensity projection 3D-reconstructions were created by the technologist. Automated exposure control and iterative reconst ruction technique were employed. Exam dose: 1005.91 mGy-cm total exam DLP. COMPARISON: 03/13/2023 portable AP chest 01/27/2023 CT pulmonary scan FINDINGS: The examination is nondiagnostic for pulmonary embolism due to body habitus, overlapping up per extremities and suboptimal contrast enhancement of the pulmonary arteries. I requested repeat exa mination. ET and orogastric tubes are in satisfactory position. No thoracic aortic aneurysm or obvious dissection is noted on this limited examination. No hilar or mediastinal mass lesion or lymphadenopathy. No pericardial or pleural effusion. There are diffuse patchy bilateral pulmonary infiltrates involving all lobes and bilateral dependent lower lobe atelectasis. Bilateral old rib fractures are again noted. IMPRESSION: Nondiagnostic examination for pulmonary embolism Diffuse patchy bilateral pulmonary infiltrates and bilateral lower lobe dependent atelectasis Reviewed, dictated and finalized at [facility]. Reviewed, dictated and finalized at location A. IMPRESSION: Nondiagnostic examination for pulmonary embolism Diffuse patchy bilateral pulmonary infiltrates and bilateral lower lobe depende nt atelectasis
--- NOTE | ~2023-03-12 | XR_ITS ---
Portable chest x-ray Comparison: 03/15/2023 Clinical History: Respiratory failure Findings: Endotracheal tube and NG tube are in satisfactory positions. There are small bilateral ple ural effusions with mild bibasilar pulmonary edema/atelectasis. Cardiomediastinal silhouette is stab le. Bones and soft tissues are unremarkable. Impression: Support tubes, as above. Small bilateral pleural effusions with mild bibasilar pulmonary edema. Reviewed, dictated and finalized at location . Impression: Support tubes, as above. Small bilateral pleural effusions with mild bibasilar pulmonary edema.
--- NOTE | ~2023-03-12 | XR_ITS ---
XR_KUBGTUBINS_CR DATE: 03/13/2023 02:39 INDICATION: Oral gastric tube insertion TECHNIQUE: Portable AP view on 03/23/2023 at 0229 hours COMPARISON: None FINDINGS: The orogastric tube extends approximately 7 cm into the upper body of the stomach, the prox imal side-port approximate 1.5 cm distal to the diaphragmatic hiatus. Tube advancement is suggested. IMPRESSION: Orogastric tube in upper body of stomach Reviewed, dictated and finalized at [facility]. Reviewed, dictated and finalized at location A.
--- NOTE | ~2023-03-12 | XR_ITS ---
EXAMINATION: XR chest 1V portable Exam Date/Time: 03/13/2023 14:05 CDT HISTORY: Change in oxygenation. Comparison: 03/13/2023 at 8:46 AM. RESULT: Lines, tubes, and devices: Endotracheal tube terminating 3 cm above the chely. NG tube, tip overlyi ng the gastric fundus, side port at the GE junction. Right upper extremity PICC terminating in the SV C. Lungs and pleura: Low volumes with crowding. Streaky bilateral midlung and bibasilar opacities. Cardiomediastinal silhouette: Stable. Other: No acute osseous or upper abdominal finding. IMPRESSION: Endotracheal tube and right upper extremity PICC, both in good position. High positioned NG tube, con [employer] advancing 5 cm. Low lung lines bilaterally with mid and lower lung atelectasis. Infection/aspir ation not excluded. Reviewed, dictated and finalized at location K. IMPRESSION: Endotracheal tube and right upper extremity PICC, both in good position. High p ositioned NG tube, consider advancing 5 cm. Low lung lines bilaterally with mid and lower lung atelectasis. Infection/aspiration not excluded.
--- NOTE | ~2023-03-12 | XR_ITS ---
Portable chest x-ray Comparison: 03/16/2023 Clinical History: Respiratory failure Findings: Endotracheal tube, NG tube, and right-sided PICC line are in satisfactory positions. There is bibasilar pulmonary edema/atelectasis. Cardiomediastinal silhouette is stable. Bones and soft ti ssues are unremarkable. Impression: Mild bibasilar pulmonary edema/atelectasis. Support tubes, as above. Reviewed, dictated and finalized at location . Impression: Mild bibasilar pulmonary edema/atelectasis. Support tubes, as above.
--- NOTE | ~2023-03-12 | XR_ITS ---
XR chest PICC line DATE: 03/13/2023 08:52 INDICATION: New PICC line placement TECHNIQUE: Portable AP chest on 03/13/2023 at 0846 hours COMPARISON: 03/13/2023 portable AP chest at 0222 hours FINDINGS: Interval placement of right upper extremity PIC catheter, the distal tip overlying superior vena cava. No pneumothorax is evident. ET and NG tubes in satisfactory position Patchy bilateral pulmonary infiltrates. Cardiomegaly. No pleural effusion is evident. IMPRESSION: Right upper stomach the catheter in superior vena cava Patchy bilateral pulmonary infiltrates ET and OG tubes in satisfactory position Reviewed, dictated and finalized at [facility]. Reviewed, dictated and finalized at location A.
--- NOTE | ~2023-03-12 | XR_ITS ---
XR chest 1V portable DATE: 03/14/2023 05:22 INDICATION: Respiratory failure TECHNIQUE: Portable AP chest on 03/14/2023 at 0459 hours COMPARISON: 03/13/2023 portable AP chest at 1412 hours FINDINGS: ET tube in satisfactory position. A nasogastric tube is identified but the distal portion i s not visualized due to technique. Cardiomegaly. Pulmonary vascular congestion or redistribution. Patchy bilateral infiltrates involving particularly the mid and lower lung zones. Differential diagnosis includes pulmonary edema as well a s pneumonia, aspiration, atelectasis. Bilateral old rib fractures. IMPRESSION: Cardiomegaly, congestive changes, probable pulmonary edema, possible pneumonia Reviewed, dictated and finalized at location A. IMPRESSION: Cardiomegaly, congestive changes, probable pulmonary edema, possibl e pneumonia
--- NOTE | ~2023-03-12 | XR_ITS ---
EXAMINATION: XR chest 2V DATE: 03/12/2023 15:00 INDICATION: Shortness of breath TECHNIQUE: frontal and lateral views of the chest were obtained. COMPARISON: Chest radiograph and CT dated 01/27/2023 FINDINGS: The lungs remain clear with no focal airspace opacities, pulmonary edema, pleural effusion or pneumot horax. The cardiomediastinal silhouette is within normal limits for AP technique. Again seen are old bilateral rib fractures. IMPRESSION: 1. No acute cardiopulmonary disease. Reviewed, dictated and finalized at location A.
--- NOTE | ~2023-03-12 | XR_ITS ---
XR_KUBGTUBPOS_CR INDICATION: Evaluate NG tube position. TECHNIQUE: Limited KUB perform for evaluating NG tube . COMPARISON: No prior studies for comparison. FINDINGS: NG tube tip in the stomach. Visualized bowel gas pattern is unremarkable.There are small p leural effusions. Left basilar atelectasis. IMPRESSION: 1: NG tube tip in the stomach. Reviewed, dictated and finalized at location L.
--- NOTE | ~2023-03-12 | CT_ITS ---
EXAMINATION: CT brain wo con DATE: 03/13/2023 06:47 INDICATION: Altered level of consciousness TECHNIQUE: Computed tomography (CT) of the head was performed without intravenous contrast. The mA wa s adjusted according to patient size. Iterative reconstruction technique was employed. Exam dose: 68 1.00 mGy-cm total exam DLP. COMPARISON: 04/14/2020 CT brain FINDINGS: Examination is limited by motion artifact. No intracranial mass lesion or hemorrhage or cerebrovascular accident, midline shift or mass effect i s detected. Normal ventricular size. No subdural or epidural hematoma is evident. No fracture or bone destruction of the cranial vault. Mild mucoperiosteal thickening of the paranasal sinuses. The mastoid air cells are normally developed and aerated. ET and OG tubes are present. IMPRESSION: Limited examination due to motion artifact No significant intracranial abnormality is detected Reviewed, dictated and finalized at [facility]. Reviewed, dictated and finalized at location A.
--- NOTE | ~2023-03-12 | XR_ITS ---
Portable chest x-ray Comparison: 03/14/2023 Clinical History: Respiratory failure Findings: Endotracheal tube, NG tube, and right-sided PICC line are in satisfactory positions. There are small bilateral pleural effusions with mild bibasilar pulmonary edema/atelectasis. Cardiomedias tinal silhouette is stable. Bones and soft tissues are unremarkable. Impression: Small bilateral pleural effusions with mild bibasilar pulmonary edema/atelectasis. Support tubes, as above. Reviewed, dictated and finalized at location M. Impression: Small bilateral pleural effusions with mild bibasilar pulmonary edema/atelectas is. Support tubes, as above.
--- NOTE | 2023-03-12 14:30 | ECG_ITS ---
Measurements Intervals Ina Rate: 97 P: 70 CT: 136 QRS: 46 QRSD: 102 T: 43 QT: 345 QTc: 438 Interpretive Statements SINUS RHYTHM LOW QRS VOLTAGE IN PRECORDIAL LEADS BORDERLINE ECG COMPARED TO ECG 01/27/2023 08:49:04 NO SIGNIFICANT CHANGES Electronically Signed On 03-12-2023 14:40:55 CDT by Denis Moody D.O.
[2023-03-12 14:54] LABS: Basophils Percent Auto 0.4 % (0.2-1.2); Eosinophils Absolute Auto 0.1 K/mm3 (0-0.3); Eosinophils Percent Auto 0.8 % (0-4.4); Hemoglobin 8.5 g/dL (12.0-15.0); Immature Granulocyte Absolute 0.14 K/mm3 (0.00-0.031); Immature Granulocyte Percent A 1.3 % (0-0.5); Lymphocytes Absolute Auto 0.83 K/mm3 (0.9-3.2); Lymphocytes Percent Auto 7.5 % (18.3-44.2); Mean Corpuscular HGB Conc 26.6 g/dl (32-36); Mean Corpuscular Hemoglobin 19.4 pg (26-34); Mean Corpuscular Volume 73.1 fl (80-100); Mean Platelet Volume 8.9 fl (7.4-10.4); Monocytes Absolute Auto 0.9 K/mm3 (0.1-0.6); Neutrophils Absolute Auto 9.1 K/mm3 (1.3-6.7); Nucleated Red Blood Cells Perc 0.3 % (0.0-0.2); Platelet Count Result 254 k/mm3 (150-375); Red Blood Count 4.38 M/mm3 (4.2-5.4); Red Cell Distribution Width 21.6 % (11.5-14.5); White Blood Count 11.1 K/mm3 (4.5-10.0)
--- NOTE | 2023-03-12 15:05 | ED.GENADULT ---
HPI - General Adult General Chief complaint: Shortness of Breath/Dyspnea Stated complaint: SOB, low pulse ox Time Seen by Provider: 03/12/23 14:36 History of Present Illness HPI narrative: Patient is a 53-year-old female who presents ER with shortness of breath and hypoxia. Patient found to be 75% on room air upon arrival here. Patient falls asleep easily. She is oriented x3. She reports that her insurance recently changed and a medical supply company came out and removed her BiPAP from her home. Since then she has had increased sleepiness. Denies fevers or chills or sweats. No chest pain or chest pressure. No wheezing. No productive cough. No additional concerns. Related Data Home Medications Medication Instructions Recorded Confirmed amlodipine 5 mg tablet (Norvasc) 5 mg PO DAILY 08/06/19 03/12/23 budesonide-formoterol HFA 160 2 puff inhalation Q12H 08/06/19 03/12/23 mcg-4.5 mcg/actuation aerosol inhaler (Symbicort) cetirizine 10 mg tablet (Zyrtec) 10 mg PO DAILY 08/06/19 03/12/23 montelukast 10 mg tablet 10 mg PO DAILY 08/06/19 03/12/23 (Singulair) Home Oxygen 04/01/22 03/12/23 [facility] Mini Oxygen System 04/01/22 03/12/23 buspirone 10 mg tablet 10 mg PO TID 04/01/22 03/12/23 epinephrine 0.3 mg/0.3 mL 0.3 ml subcut DIRECTED PRN 04/01/22 03/12/23 injection, auto-injector Anaphylaxis ferrous sulfate 325 mg (65 mg 325 mg PO Q48H 01/27/23 03/12/23 iron) tablet,delayed release omeprazole 20 mg capsule,delayed 20 mg PO DAILY 01/27/23 03/12/23 release Allergies Allergy/AdvReac Type Severity Reaction Status Date / Time nickel Allergy Intermediate Swelling Verified 01/27/23 08:54 METALS Allergy Intermediate Rash Uncoded 10/19/22 23:29 Review of Systems Review of Systems: All systems reviewed & are unremarkable except as noted in HPI and below Constitutional: Constitutional: Denies chills, Reports fatigue and Denies fever(s) ENT: Denies nasal congestion and Denies sore throat Cardiovascular: Cardiovascular: Denies chest pain, Denies rapid heart rate and Denies radiating jaw, neck or arm pain Respiratory: Respiratory: Denies cough, Reports dyspnea and Denies wheezing Gastrointestinal: Gastrointestinal: Denies abdominal pain, Denies diarrhea, Denies nausea and Denies vomiting Genitourinary: Genitourinary: Reports no additional female genitourinary complaints Musculoskeletal: Musculoskeletal: Reports no additional musculoskeletal complaints PMFSH Past Medical History Medical History (Updated 03/12/23 @ 21:58 by Holden Bundy MD) Anxiety Asthma Chronic sinusitis COVID-19 ruled out by laboratory testing Fibromyalgia Gastroesophageal reflux disease Hypertension Iron deficiency anemia Morbid obesity MRSA (methicillin resistant Staphylococcus aureus) carrier Obstructive sleep apnea Patient reports that her most recent sleep study showed no indication for CPAP. Tendonitis Surgical History Surgical History (Updated 01/27/23 @ 13:48 by Manasa Young NP) H/O: hysterectomy History of bilateral carpal tunnel release x2 History of cervical spinal surgery History of section X1 History of endometrial ablation History of sinus surgery History of tubal ligation (~2009) Anterior ethmoid and maxillary antrostomy. Family History Family History Father Hypertension Colon cancer Mother Alive and well Colon cancer Breast cancer Sibling Colon cancer Social History Social History (Updated 01/27/23 @ 13:48 by Manasa Young NP) Social History: The patient tells me that she is currently unemployed. She has 1 daughter. She also has a significant get other. She tells me that she has never smoked. Surrogate decision maker: Bisi Pardo Kin, mother. Code status: Full code. Smoking status: Unknown if ever smoked Second hand tobacco smoke exposure: No Alcohol intake: unknown Substance use: unknown Jimenez
[2023-03-12 15:20] LABS: Platelet Estimate Adequate (Adequate); Schistocytes None Seen (NORMAL)
[2023-03-12 15:21] LABS: Anisocytosis 3+ (NORMAL); Hypochromasia 1+ (NORMAL)
[2023-03-12 15:31] LABS: Alveolar/Arterial O2 Gradient 60.3 mmHg; Base Excess ABG 5.9 mEq/l (+/-2.0); Carboxyhemoglobin 1.3 % THb (0-2.0); Fractional Inspired Oxygen 32 %; HCO3 ABG 34.9 mEq/l (22.0-26.0); Methemoglobin ABG 0.3 %THb (0-1.5); Oxygen Content ABG 11.4 %vol (16.0-22.0); Oxygen Saturation ABG 90.1 % (95.0-100.0); Oxyhemoglobin 89.4 % THb (90.0-100.0); PO2 ABG 70.3 mmHg (80.0-100.0)
[2023-03-12 15:32] LABS: PCO2 ABG 83.4 mmHg (35.0-45.0); Site Drawn RIGHT RADIAL; pH ABG 7.239 (7.350-7.450)
[2023-03-12 15:33] LABS: Device NASAL CANNULA; Modified Allen's Test Pass
[2023-03-12 15:49] LABS: Alanine Aminotransferase 31 U/L (6-35); Albumin Level 3.9 g/dL (3.5-5.1); Alkaline Phosphatase 150 U/L (38-126); Anion Gap 5 mmol/L (8-16); Aspartate Amino Transferase 35 U/L (14-36); Bilirubin,Total 0.6 mg/dL (0.2-1.3); Blood Urea Nitrogen 10 mg/dL (7-17); Calcium 8.4 mg/dL (8.4-10.2); Carbon Dioxide 39 mmol/L (22-30); Chloride 95 mmol/L (98-107); Estimated CRCL calculation 167 ml/min; Estimated Glomerular Filt Rate > 60; Glucose 121 mg/dL (65-110); Potassium 4.4 mmol/L (3.4-5.0); Sodium 139 mmol/L (137-145)
--- NOTE | 2023-03-12 16:14 | PM.IMHP ---
H&P: HPI History of Present Illness Date/Time: 03/12/23 16:14 [facility] Past Medical History Medical History (Updated 01/28/23 @ 12:24 by Zarina Irvin MD) Anxiety Asthma Chronic sinusitis COVID-19 ruled out by laboratory testing Fibromyalgia Gastroesophageal reflux disease Hypertension Iron deficiency anemia Morbid obesity MRSA (methicillin resistant Staphylococcus aureus) carrier Obstructive sleep apnea Patient reports that her most recent sleep study showed no indication for CPAP. Tendonitis Surgical History Surgical History (Updated 01/27/23 @ 13:48 by Manasa Young NP) H/O: hysterectomy History of bilateral carpal tunnel release x2 History of cervical spinal surgery History of section X1 History of endometrial ablation History of sinus surgery History of tubal ligation (~2009) Anterior ethmoid and maxillary antrostomy. Family History Family History Father Hypertension Colon cancer Mother Alive and well Colon cancer Breast cancer Sibling Colon cancer Social History Social History (Updated 01/27/23 @ 13:48 by Manasa Young NP) Social History: The patient tells me that she is currently unemployed. She has 1 daughter. She also has a significant get other. She tells me that she has never smoked. Surrogate decision maker: Bisi Sanderson, mother. Code status: Full code. Smoking status: Never smoker Second hand tobacco smoke exposure: No Alcohol intake: never Substance use: never Substance use type: does not use Lack of Transportation: No Lack of Food: Never True Current Housing: I Have Housing Concerned About Future Housing: No Difficulty Paying Gas/Electric Bills: No Difficulty Paying for Meds: No Currently Unemployed: No Education: High School Diploma/GED Difficulty w/ Childcare or Family Care: No Living arrangements: with family Additional living arrangements comments: Lives in [place] with a friend. 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 Gender identity (if verbalized by the patient): Female Sexual Orientation (if Verbalized by the Patient): Straight or Heterosexual Spiritual care concerns: No Meds Home Medications and Allergies Home Medications Medication Instructions Recorded Confirmed Type amlodipine 5 mg tablet (Norvasc) 5 mg PO DAILY 08/06/19 01/27/23 History budesonide-formoterol HFA 160 2 puff inhalation Q12H 08/06/19 01/27/23 History mcg-4.5 mcg/actuation aerosol inhaler (Symbicort) cetirizine 10 mg tablet (Zyrtec) 10 mg PO DAILY 08/06/19 01/27/23 History montelukast 10 mg tablet 10 mg PO DAILY 08/06/19 01/27/23 History (Singulair) tiotropium bromide 1.25 2 puff inhalation DAILY 08/06/19 01/27/23 History mcg/actuation mist for inhalation (Spiriva Respimat) albuterol sulfate 90 mcg/actuation 2 puff inhalation QID PRN 01/24/20 01/27/23 Rx aerosol inhaler shortness of breath or wheezing #8 grams albuterol sulfate 2.5 mg/3 mL 2.5 mg (3 mL) inhalation Q4H PRN 07/23/20 01/27/23 Rx (0.083 %) solution for nebulization shortness of breath or wheezing #75 mL azelastine 137 mcg (0.1 %) nasal 1 spray intranasal Q12H #30 mL 10/01/21 01/27/23 Rx spray aerosol Bipap 04/01/22 01/27/23 History Home Oxygen 04/01/22 01/27/23 History [facility] Mini Oxygen System 04/01/22 01/27/23 History buspirone 10 mg tablet 10 mg PO TID 04/01/22 01/27/23 History epinephrine 0.3 mg/0.3 mL 0.3 ml subcut DIRECTED PRN 04/01/22 01/27/23 History injection, auto-injector Anaphylaxis duloxetine 60 mg capsule,delayed 60 mg PO DAILY #14 caps 10/22/22 01/27/23 Rx release torsemide 20 mg tablet 20 mg PO QAM #30 tabs 10/22/22 01/27/23 Rx ferrous sulfate 325 mg (65 mg 325 mg PO Q48H 01/27/23 01/27/23 History iron) tablet,delayed release omeprazole 20 mg capsule,delayed
--- NOTE | 2023-03-12 17:31 | ADMGEN ---
This patient, Angie Leos, was admitted to IMU Room 213-01. Patient/family oriented to hospital policies and general routines including ID bracelet, bed and alarms, visiting hours, pain management, procedures, bathroom and other care routines, personal items, smoking policy, room service/diet, and visiting hours. Information on how to activate the Rapid Response Team has been discussed. Patient/Family are encouraged to report perceived risks to care and to ask questions if they do not understand what they are told or what they should do.
[2023-03-12 18:11] LABS: Alveolar/Arterial O2 Gradient 39.7 mmHg; Base Excess ABG 11.1 mEq/l (+/-2.0); Fractional Inspired Oxygen 30 %; HCO3 ABG 40.2 mEq/l (22.0-26.0); Oxygen Content ABG 11.4 %vol (16.0-22.0); Oxygen Saturation ABG 89.7 % (95.0-100.0); Oxyhemoglobin 90.2 % THb (90.0-100.0); PO2 ABG 68.2 mmHg (80.0-100.0); PO2 FiO2 Ratio Arterial Blood 2.27 %; Total Hemoglobin 8.9 g/dL (12.0-18.0)
[2023-03-12 18:13] LABS: PCO2 ABG 90.2 mmHg (35.0-45.0); pH ABG 7.267 (7.350-7.450)
[2023-03-12 18:14] LABS: Device NON-INVASIVE VENT; Modified Allen's Test Pass; Non-Invasive Expiratory Pressure 8 CMH2O; Non-Invasive Inspiratory Pressure 16 CMH2O; Non-Invasive Vent Rate 22 /MIN; Site Drawn RIGHT RADIAL
--- NOTE | 2023-03-12 20:21 | PM.IMHP ---
H&P: HPI History of Present Illness Date/Time: 03/12/23 20:21 Chief Complaint: altered mental status Narrative: This is a 53-year-old female with past medical history significant for morbid obesity, obesity hypoventilation syndrome, hypercarbic hypoxic respiratory failure, obstructive sleep apnea on BiPAP at nighttime. Patient comes to the emergency room due to altered mental status has been very lethargic as per family members, in emergency room patient was found to have a pulse ox of 75% on room air. Patient was placed on BiPAP preliminary workup was significant for ABG pH is 7.2 pCO2 83 PO2 70. Patient states that her insurance change and the medical equipment company came and retrieved her BiPAP hence leaving her without access to a BiPAP machine in the last few days. At the time of my visit patient was on BiPAP unable to give any history Patient is been admitted for further evaluation management and treatment. EXAMINATION: XR chest 2V DATE: 03/12/2023 15:00 INDICATION: Shortness of breath TECHNIQUE: frontal and lateral views of the chest were obtained. COMPARISON: Chest radiograph and CT dated 01/27/2023 FINDINGS: The lungs remain clear with no focal airspace opacities, pulmonary edema, pleural effusion or pneumothorax. The cardiomediastinal silhouette is within normal limits for AP technique. Again seen are old bilateral rib fractures. IMPRESSION: 1. No acute cardiopulmonary disease. Review of Systems Review of Systems: ROS unobtainable: Yes unobtainable due to medical condition ( on BiPAP) PMFSH Past Medical History Medical History (Updated 03/13/23 @ 01:10 by Ese Abdi MD) Anxiety Asthma Chronic sinusitis COVID-19 ruled out by laboratory testing Fibromyalgia Gastroesophageal reflux disease Hypertension Iron deficiency anemia Morbid obesity MRSA (methicillin resistant Staphylococcus aureus) carrier Obstructive sleep apnea Patient reports that her most recent sleep study showed no indication for CPAP. Tendonitis Surgical History Surgical History (Updated 01/27/23 @ 13:48 by Manasa Young NP) H/O: hysterectomy History of bilateral carpal tunnel release x2 History of cervical spinal surgery History of section X1 History of endometrial ablation History of sinus surgery History of tubal ligation (~2009) Anterior ethmoid and maxillary antrostomy. Family History Family History Father Hypertension Colon cancer Mother Alive and well Colon cancer Breast cancer Sibling Colon cancer Social History Social History (Updated 01/27/23 @ 13:48 by Manasa Young NP) Social History: The patient tells me that she is currently unemployed. She has 1 daughter. She also has a significant get other. She tells me that she has never smoked. Surrogate decision maker: Bisi Sanderson, mother. Code status: Full code. Smoking status: Unknown if ever smoked Second hand tobacco smoke exposure: No Alcohol intake: unknown Substance use: unknown Substance use type: does not use Lack of Transportation: No Lack of Food: Never True Current Housing: I Have Housing Concerned About Future Housing: No Difficulty Paying Gas/Electric Bills: No Difficulty Paying for Meds: No Currently Unemployed: No Education: High School Diploma/GED Difficulty w/ Childcare or Family Care: No Living arrangements: with family Additional living arrangements comments: Lives in [place] with a friend. 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 Gender identity (if verbalized by the patient): Female Sexual Orientation (if Verbalized by the Patient): Straight or Heterosexual Spiritual care concerns: No Meds Home Medications and Allergies Home Medications Medication Instructions Recorded Confirmed Type amlodipine 5 mg tabl
[2023-03-12 22:59] LABS: Alveolar/Arterial O2 Gradient 247.5 mmHg; Base Excess ABG 7.8 mEq/l (+/-2.0); Carboxyhemoglobin 0.6 % THb (0-2.0); Fractional Inspired Oxygen 70 %; HCO3 ABG 38.2 mEq/l (22.0-26.0); Methemoglobin ABG 0.5 %THb (0-1.5); Oxygen Content ABG 12.5 %vol (16.0-22.0); Oxygen Saturation ABG 97.9 % (95.0-100.0); Oxyhemoglobin 96.7 % THb (90.0-100.0); PO2 ABG 139.4 mmHg (80.0-100.0); PO2 FiO2 Ratio Arterial Blood 1.99 %; Reduced Hemoglobin 2.2 %THb (0-5.0)
[2023-03-12 23:02] LABS: pH ABG 7.181 (7.350-7.450)
[2023-03-12 23:03] LABS: Device BIPAP; Modified Allen's Test Pass; PCO2 ABG 104.4 mmHg (35.0-45.0); Site Drawn RIGHT RADIAL
[2023-03-12 23:04] LABS: Inspiratory Pressure 20 cmH2O
[2023-03-12 23:05] LABS: Expiratory Pressure 10 cmH2O
--- NOTE | 2023-03-12 23:29 | PC.NURSE ---
spoke to daughter made aware of mother planned transfer to ICU
[2023-03-13] VITALS (64 sets, daily range): BP systolic 96–189; BP diastolic 55–129; PULSE 60–132; RESP 18–24; TEMP 36.8–38.3; O2SAT 85–100
[2023-03-13] MEDS: methylPREDNISolone SOD SUCC 125 MG VIAL IV PUSH ×2 (00:34→14:28)
[2023-03-13] MEDS: IPRATROPIUM BR 0.02% INH SOLN 0.5 MG/2.5 ML VIAL INHALATION ×5 (00:56→20:10)
[2023-03-13] MEDS: ALBUTEROL SULFATE NEB 2.5 MG/3 ML INH INHALATION ×5 (00:57→20:10)
[2023-03-13 01:26] LABS: Alveolar/Arterial O2 Gradient 203.4 mmHg; Base Excess ABG 10.6 mEq/l (+/-2.0); Carboxyhemoglobin 0.2 % THb (0-2.0); Fractional Inspired Oxygen 60 %; HCO3 ABG 42.4 mEq/l (22.0-26.0); Methemoglobin ABG 0.4 %THb (0-1.5); Oxygen Content ABG 12.7 %vol (16.0-22.0); Oxygen Saturation ABG 92.6 % (95.0-100.0); Oxyhemoglobin 93.8 % THb (90.0-100.0); PO2 ABG 87.6 mmHg (80.0-100.0); PO2 FiO2 Ratio Arterial Blood 1.46 %; Reduced Hemoglobin 5.6 %THb (0-5.0); Total Hemoglobin 9.5 g/dL (12.0-18.0)
[2023-03-13 01:29] LABS: Device OTHER DEVICE; Modified Allen's Test Pass; PCO2 ABG 124.4 mmHg (35.0-45.0); Site Drawn RIGHT RADIAL
[2023-03-13] MEDS: ETOMIDATE 20 MG/10 ML AMPUL 30 MG IV PUSH (02:01)
[2023-03-13] MEDS: ROCURONIUM BROMIDE 50 MG/5 ML VIAL 80 MG IV PUSH (02:03)
[2023-03-13] MEDS: FENTANYL 2,500MCG/NS250ML(*CRX 2,500 MCG/250 ML BAG IV CONT (02:13)
[2023-03-13] MEDS: MIDAZOLAM 100MG/NS 100ML(*CRX) 100 MG/100 ML BAG IV CONT (02:14)
[2023-03-13] MEDS: VANCOMYCIN 1,250 MG/NS 250 ML 1,250 MG/250 ML BAG 166.67 MG IVPB ×2 (02:15→04:11)
[2023-03-13] MEDS: RAPID SEQUENCE INTUBATION KIT 1 EACH (02:33)
--- NOTE | 2023-03-13 02:33 | PC.NURSE ---
This patient, Angie Leos, was transferred to ICU 7 for resp faliure requiring intubation on 03/13/23 at 0140 Personal belongings sent with patient. Report given to kaden. Appropriate documentation sent with patient.
[2023-03-13] MEDS: MIDAZOLAM HCL (*CRX) 2 MG/2 ML VIAL IV PUSH (02:36)
--- NOTE | 2023-03-13 02:44 | PC.NURSE ---
left message with daughter(mayito) to call back regarding patient status.
--- NOTE | 2023-03-13 02:49 | WPDPROCEDUR ---
Procedures Intubation Intubation Date: 03/13/23 Intubation Time: 02:00 Sedative: etomidate Mg given: 30 Paralytic: rocuronium Mg given: 80 Laryngoscope: fiber optic video scope Assist device used: fiber optic device ET tube size: 7 Tube secured depth (cm): 26 Tube secured location: lips Tube placement confirmation: visualized tube passing through cords, equal breath sounds bilaterally, no breath sounds over epigastrium and confirmation by capnometry Patient tolerated procedure: well and no complications Intubation complications: none
--- NOTE | 2023-03-13 02:50 | PC.NURSE ---
This patient, Angie Leos, was received from [facility] on 03/13/23 at 0250. Patient/family oriented to unit policies and routines
--- NOTE | 2023-03-13 03:36 | PC.NURSE ---
Dtr Ivone returned call, alerted her to pt's transfer to ICU and intubation.
[2023-03-13 04:29] LABS: Hematocrit 32.8 % (37.0-47.0); Hemoglobin 8.5 g/dL (12.0-15.0); Mean Corpuscular HGB Conc 25.9 g/dl (32-36); Mean Corpuscular Hemoglobin 18.9 pg (26-34); Mean Corpuscular Volume 72.9 fl (80-100); Mean Platelet Volume 8.8 fl (7.4-10.4); Platelet Count Result 248 k/mm3 (150-375); Red Cell Distribution Width 21.2 % (11.5-14.5); White Blood Count 10.9 K/mm3 (4.5-10.0)
[2023-03-13 04:57] LABS: Alveolar/Arterial O2 Gradient 166.7 mmHg; Base Excess ABG 9.1 mEq/l (+/-2.0); Carboxyhemoglobin 0.3 % THb (0-2.0); Fractional Inspired Oxygen 40 %; HCO3 ABG 35.2 mEq/l (22.0-26.0); Methemoglobin ABG 0.3 %THb (0-1.5); PCO2 ABG 57.3 mmHg (35.0-45.0); PO2 ABG 52.6 mmHg (80.0-100.0); PO2 FiO2 Ratio Arterial Blood 1.31 %; Reduced Hemoglobin 11.6 %THb (0-5.0); Total Hemoglobin 9.7 g/dL (12.0-18.0); pH ABG 7.406 (7.350-7.450)
[2023-03-13 05:05] LABS: Oxygen Saturation ABG 86.5 % (95.0-100.0)
[2023-03-13 05:06] LABS: Device VENTILATOR; Modified Allen's Test Pass; Oxyhemoglobin 87.8 % THb (90.0-100.0); Site Drawn LEFT RADIAL
[2023-03-13 05:07] LABS: Arterial Blood Gas PEEP 5 cmH2O; Arterial Blood Gas Tidal Volume 450 ml; Arterial Blood Gas Vent Mode CMV; Arterial Blood Gas Ventilator rate 20 /MIN
[2023-03-13] MEDS: PIPERACILLN/TAZ 3.375GM/NS50ML 3.375 GM/50 ML BAG IVPB (05:41)
[2023-03-13 05:46] LABS: Alanine Aminotransferase 29 U/L (6-35); Albumin Level 3.8 g/dL (3.5-5.1); Alkaline Phosphatase 170 U/L (38-126); Aspartate Amino Transferase 29 U/L (14-36); Bilirubin,Total 0.9 mg/dL (0.2-1.3); Blood Urea Nitrogen 9 mg/dL (7-17); Calcium 8.6 mg/dL (8.4-10.2); Carbon Dioxide > 40 mmol/L (22-30); Chloride 92 mmol/L (98-107); Estimated CRCL calculation 140 ml/min; Estimated Glomerular Filt Rate > 60; Glucose 134 mg/dL (65-110); Potassium 4.7 mmol/L (3.4-5.0); Sodium 138 mmol/L (137-145)
[2023-03-13] MEDS: methylPREDNISolone SOD SUCC 125 MG VIAL 60 MG IV PUSH ×3 (06:50→17:48)
--- NOTE | 2023-03-13 08:04 | WPDCNINT ---
Assessment and Plan Assessment and plan (1) Acute and chronic respiratory failure with hypercapnia: Code(s): J96.22 - Acute and chronic respiratory failure with hypercapnia Status: Acute Assessment and Plan: 03/12: Patient presented to the ED with complains of shortness of breath and low pulse oximetry. Upon arrival to the ER patient is O2 sats were 75 blood room air. According the records the patient stated that her insurance recently has change in the medical supply company came and to her BiPAP away. Since then she has had increased sleepiness, and difficulty breathing. Denies any fevers or chills, no chest pain or wheezing, denies any cough. -patient was admitted to the IMU was placed on BiPAP and AVAPS despite which her ABGs showed worsening hypercapnia and patient was intubated during the early hours of 03/13/2023 -she is on CMV mode of ventilation, peep of 5, 50% FiO2, tidal volume of 450 mL. Decrease tidal volume to 400 mL, increased PEEP to 5. Will wean FiO2 to maintain O2 sats greater than 92% -hypercapnia could be related to obstructive sleep apnea and no BiPAP due to the medical company taking that away since insurance has changed. Asthma exacerbation, obesity hypoventilation syndrome -Chest CTA shows possible pneumonia -patient has been started on vancomycin, ceftriaxone and azithromycin (03/13) for community-acquired pneumonia -continue bronchodilators -continue bronchodilators 03/12/2023 Chest x-ray in the ER did not show any acute cardiopulmonary disease. 03/13/2023 CTA chest was nondiagnostic for pulmonary embolism due to body habitus, will up in upper extremities and suboptimal contrast enhancement of the pulmonary arteries. Diffuse patchy bilateral pulmonary infiltrates and bilateral lower lobe dependent atelectasis. (2) Sepsis: Qualifiers: Sepsis acute organ dysfunction status: without acute organ dysfunction Sepsis type: sepsis due to unspecified organism Qualified Code(s): A41.9 - Sepsis, unspecified organism Code(s): A41.9 - Sepsis, unspecified organism Status: Acute Assessment and Plan: Elevated WBC count, CTA chest showed bilateral patchy pulmonary infiltrates likely pneumonia -03/13 blood cultures have been obtained and pending -03/13 MRSA screen pending -blood pressures remain stable -low urine output, will give 1 L IV fluid bolus and start maintenance IV fluids -continue antibiotics as above (3) Asthma: Qualifiers: Asthma severity: unspecified severity Asthma persistence: unspecified Asthma complication type: unspecified Qualified Code(s): J45.909 - Unspecified asthma, uncomplicated Code(s): J45.909 - Unspecified asthma, uncomplicated Status: Acute Assessment and Plan: Continue bronchodilators, steroids and antibiotics (4) Community acquired pneumonia: Qualifiers: Laterality: unspecified laterality Qualified Code(s): J18.9 - Pneumonia, unspecified organism Code(s): J18.9 - Pneumonia, unspecified organism Status: Acute Assessment and Plan: His CTA chest with diffuse patchy bilateral pulmonary infiltrates and bilateral lower lobe atelectasis -likely pneumonia -continue antibiotics as above (5) Gastroesophageal reflux disease: Qualifiers: Esophagitis presence: esophagitis presence not specified Qualified Code(s): K21.9 - Gastro-esophageal reflux disease without esophagitis Code(s): K21.9 - Gastro-esophageal reflux disease without esophagitis Status: Acute Assessment and Plan: Continue Protonix (6) Iron deficiency anemia: Qualifiers: Iron deficiency anemia type: unspecified iron deficiency Qualified Code(s): D50.9 - Iron deficiency anemia, unspecified Code(s): D50.9 - Iron deficiency anemia, unspecified Status: Acute Assessment and Plan: Will restart ferrous sulfate tablets (7) Morbid obesity with BMI of 50.0-59.9, adult:
[2023-03-13] MEDS: PROPOFOL IV EMULSION 100 ML 4.71 MG IV CONT (08:19)
[2023-03-13] MEDS: LIDOCAINE HCL 1% PF INJ 5 ML VIAL INFILTRATE (09:02)
[2023-03-13] MEDS: SODIUM CHLORIDE 0.9% IV 1,000 ML 999 ML IV CONT (09:16)
[2023-03-13] MEDS: SODIUM CHLORIDE 0.9% IV 1,000 ML 75 ML IV CONT (09:19)
[2023-03-13] MEDS: PANTOPRAZOLE SODIUM IV 40 MG VIAL IV PUSH ×2 (09:23→21:16)
[2023-03-13] MEDS: busPIRone HCL 10 MG TABLET PO ×3 (09:24→17:48)
[2023-03-13] MEDS: ENOXAPARIN 40 MG/0.4 ML SYRINGE SUB-Q (09:24)
[2023-03-13] MEDS: DULoxetine HCL 60 MG CAPSULE.DR PO (09:24)
[2023-03-13] MEDS: cefTRIAXone 2 GM/NS 100 ML 2 GM/100 ML BAG IVPB (09:24)
[2023-03-13] MEDS: MONTELUKAST SODIUM 10 MG TABLET PO (09:24)
[2023-03-13] MEDS: FERROUS SULFATE 325 MG TABLET DR PO (09:24)
[2023-03-13] MEDS: AZITHROMYCIN 500 MG/NS 250 ML 500 MG/250 ML BAG 250 MG IVPB (09:24)
[2023-03-13] MEDS: MINERAL OIL/WHITE PETROLATUM OINTMENT 1 APPLIC EACH EYE ×2 (09:25→21:17)
[2023-03-13 09:58] LABS: Influenza A QL RT-PCR Negative (Negative); Influenza B QL RT-PCR Negative (Negative); RSV RNA, RT-PCR Negative (Negative); SARS-CoV-2 RNA PCR Negative (Negative)
--- NOTE | 2023-03-13 11:26 | PM.IMPN ---
Progress Note: A&P Assessment and Plan (1) Acute and chronic respiratory failure with hypercapnia: Code(s): J96.22 - Acute and chronic respiratory failure with hypercapnia Status: Acute Assessment and Plan: 03/12: Patient presented to the ED with complains of shortness of breath and low pulse oximetry. Upon arrival to the ER patient is O2 sats were 75 blood room air. According the records the patient stated that her insurance recently has change in the medical supply company came and to her BiPAP away. Since then she has had increased sleepiness, and difficulty breathing. Denies any fevers or chills, no chest pain or wheezing, denies any cough. -patient was admitted to the IMU was placed on BiPAP and AVAPS despite which her ABGs showed worsening hypercapnia and patient was intubated during the early hours of 03/13/2023 -she is on CMV mode of ventilation, peep of 5, 50% FiO2, tidal volume of 450 mL. Decrease tidal volume to 400 mL, increased PEEP to 5. Will wean FiO2 to maintain O2 sats greater than 92% -hypercapnia could be related to obstructive sleep apnea and no BiPAP due to the [employer] company taking that away since insurance has changed. Asthma exacerbation, obesity hypoventilation syndrome -Chest CTA shows possible pneumonia -patient has been started on vancomycin, ceftriaxone and azithromycin (03/13) for community-acquired pneumonia -continue bronchodilators -continue bronchodilators 03/12/2023 Chest x-ray in the ER did not show any acute cardiopulmonary disease. 03/13/2023 CTA chest was nondiagnostic for pulmonary embolism due to body habitus, will up in upper extremities and suboptimal contrast enhancement of the pulmonary arteries. Diffuse patchy bilateral pulmonary infiltrates and bilateral lower lobe dependent atelectasis. (2) Sepsis: Qualifiers: Sepsis acute organ dysfunction status: without acute organ dysfunction Sepsis type: sepsis due to unspecified organism Qualified Code(s): A41.9 - Sepsis, unspecified organism Code(s): A41.9 - Sepsis, unspecified organism Status: Acute Assessment and Plan: Elevated WBC count, CTA chest showed bilateral patchy pulmonary infiltrates likely pneumonia -03/13 blood cultures have been obtained and pending -03/13 MRSA screen pending -blood pressures remain stable -low urine output, will give 1 L IV fluid bolus and start maintenance IV fluids -continue antibiotics as above (3) Asthma: Qualifiers: Asthma complication type: unspecified Asthma persistence: unspecified Asthma severity: unspecified severity Qualified Code(s): J45.909 - Unspecified asthma, uncomplicated Code(s): J45.909 - Unspecified asthma, uncomplicated Status: Acute Assessment and Plan: Continue bronchodilators, steroids and antibiotics (4) Community acquired pneumonia: Qualifiers: Laterality: unspecified laterality Qualified Code(s): J18.9 - Pneumonia, unspecified organism Code(s): J18.9 - Pneumonia, unspecified organism Status: Acute Assessment and Plan: His CTA chest with diffuse patchy bilateral pulmonary infiltrates and bilateral lower lobe atelectasis -likely pneumonia -continue antibiotics as above (5) Gastroesophageal reflux disease: Qualifiers: Esophagitis presence: esophagitis presence not specified Qualified Code(s): K21.9 - Gastro-esophageal reflux disease without esophagitis Code(s): K21.9 - Gastro-esophageal reflux disease without esophagitis Status: Acute Assessment and Plan: Continue Protonix (6) Iron deficiency anemia: Qualifiers: Iron deficiency anemia type: unspecified iron deficiency Qualified Code(s): D50.9 - Iron deficiency anemia, unspecified Code(s): D50.9 - Iron deficiency anemia, unspecified Status: Acute Assessment and Plan: Will restart ferrous sulfate tablets (7) Morbid obesity with BMI of 50.0-59.9, adult:
[2023-03-13 12:23] LABS: Glucose Point of Care 131 mg/dl (65-105)
[2023-03-13] MEDS: PROPOFOL IV EMULSION 100 ML 14.13 MG IV CONT ×3 (12:26→21:21)
[2023-03-13] MEDS: CENTRAL LINE FLUSH 10 ML IV PUSH ×2 (13:16→21:16)
[2023-03-13 13:43] LABS: Triglycerides 48 mg/dL (<150)
[2023-03-13 13:56] LABS: Base Excess ABG 9.9 mEq/l (+/-2.0); Device VENTILATOR; Fractional Inspired Oxygen 100 %; HCO3 ABG 35.7 mEq/l (22.0-26.0); Modified Allen's Test Pass; Oxygen Content ABG 10.6 %vol (16.0-22.0); Oxygen Saturation ABG 93.4 % (95.0-100.0); Oxyhemoglobin 92.6 % THb (90.0-100.0); PO2 FiO2 Ratio Arterial Blood 0.68 %; Site Drawn RIGHT RADIAL; Total Hemoglobin 8.1 g/dL (12.0-18.0); pH ABG 7.415 (7.350-7.450)
[2023-03-13 13:57] LABS: Arterial Blood Gas PEEP 8 cmH2O; Arterial Blood Gas Tidal Volume 400 ml; Arterial Blood Gas Vent Mode CMV; Arterial Blood Gas Ventilator rate 22 /MIN
[2023-03-13] MEDS: ALBUTEROL SULFATE NEB 2.5 MG/3 ML INH 15 MG INHALATION (14:24)
[2023-03-13 18:02] LABS: Glucose Point of Care 183 mg/dl (65-105)
[2023-03-14] VITALS (46 sets, daily range): BP systolic 106–134; BP diastolic 47–80; PULSE 85–115; RESP 20–24; TEMP 36.9–37.6; O2SAT 91–99
[2023-03-14] MEDS: methylPREDNISolone SOD SUCC 125 MG VIAL 60 MG IV PUSH ×4 (00:56→17:23)
[2023-03-14 01:19] LABS: Glucose Point of Care 174 mg/dl (65-105)
[2023-03-14] MEDS: PROPOFOL IV EMULSION 100 ML 14.13 MG IV CONT (03:18)
[2023-03-14] MEDS: ALBUTEROL SULFATE NEB 2.5 MG/3 ML INH INHALATION ×6 (04:04→20:04)
[2023-03-14] MEDS: IPRATROPIUM BR 0.02% INH SOLN 0.5 MG/2.5 ML VIAL INHALATION ×6 (04:04→20:05)
[2023-03-14 04:54] LABS: Base Excess ABG 6.8 mEq/l (+/-2.0); Carboxyhemoglobin 0.3 % THb (0-2.0); Device VENTILATOR; Fractional Inspired Oxygen 70 %; HCO3 ABG 33.1 mEq/l (22.0-26.0); Methemoglobin ABG 0.4 %THb (0-1.5); Modified Allen's Test Unable to perform; Oxygen Content ABG 10.8 %vol (16.0-22.0); Oxygen Saturation ABG 93.8 % (95.0-100.0); Oxyhemoglobin 92.6 % THb (90.0-100.0); PO2 ABG 72.7 mmHg (80.0-100.0); PO2 FiO2 Ratio Arterial Blood 1.04 %; Reduced Hemoglobin 6.7 %THb (0-5.0); Site Drawn RIGHT RADIAL; Total Hemoglobin 8.2 g/dL (12.0-18.0); pH ABG 7.367 (7.350-7.450)
[2023-03-14 04:55] LABS: Arterial Blood Gas PEEP 10 cmH2O; Arterial Blood Gas Tidal Volume 400 ml; Arterial Blood Gas Vent Mode CMV; Arterial Blood Gas Ventilator rate 20 /MIN
[2023-03-14 06:06] LABS: Hematocrit 25.5 % (37.0-47.0); Mean Corpuscular HGB Conc 27.5 g/dl (32-36); Mean Corpuscular Hemoglobin 19.1 pg (26-34); Mean Corpuscular Volume 69.5 fl (80-100); Mean Platelet Volume 8.7 fl (7.4-10.4); Platelet Count Result 237 k/mm3 (150-375); Red Blood Count 3.67 M/mm3 (4.2-5.4); Red Cell Distribution Width 21.1 % (11.5-14.5); White Blood Count 11.4 K/mm3 (4.5-10.0)
[2023-03-14] MEDS: CENTRAL LINE FLUSH 10 ML IV PUSH ×3 (06:12→20:35)
[2023-03-14 06:27] LABS: Alanine Aminotransferase 20 U/L (6-35); Albumin Level 3.3 g/dL (3.5-5.1); Alkaline Phosphatase 120 U/L (38-126); Anion Gap 2 mmol/L (8-16); Aspartate Amino Transferase 19 U/L (14-36); Bilirubin,Total 0.3 mg/dL (0.2-1.3); Blood Urea Nitrogen 19 mg/dL (7-17); Calcium 8.3 mg/dL (8.4-10.2); Carbon Dioxide 38 mmol/L (22-30); Chloride 94 mmol/L (98-107); Estimated CRCL calculation 122 ml/min; Estimated Glomerular Filt Rate > 60; Glucose 160 mg/dL (65-110); Potassium 4.3 mmol/L (3.4-5.0); Sodium 134 mmol/L (137-145)
[2023-03-14] MEDS: cefTRIAXone 2 GM/NS 100 ML 2 GM/100 ML BAG IVPB (08:16)
[2023-03-14] MEDS: AZITHROMYCIN 500 MG/NS 250 ML 500 MG/250 ML BAG 250 MG IVPB (08:16)
[2023-03-14] MEDS: PANTOPRAZOLE SODIUM IV 40 MG VIAL IV PUSH ×2 (08:18→20:19)
[2023-03-14] MEDS: MONTELUKAST SODIUM 10 MG TABLET PO (08:19)
[2023-03-14] MEDS: busPIRone HCL 10 MG TABLET PO ×3 (08:19→17:23)
[2023-03-14] MEDS: MINERAL OIL/WHITE PETROLATUM OINTMENT 1 APPLIC EACH EYE ×2 (08:19→20:19)
[2023-03-14] MEDS: DULoxetine HCL 60 MG CAPSULE.DR PO (08:19)
[2023-03-14 08:33] LABS: Basophils Percent Auto 0.1 % (0.2-1.2); Hematocrit 26.6 % (37.0-47.0); Hemoglobin 7.3 g/dL (12.0-15.0); Immature Granulocyte Absolute 0.08 K/mm3 (0.00-0.031); Immature Granulocyte Percent A 0.6 % (0-0.5); Lymphocytes Absolute Auto 0.26 K/mm3 (0.9-3.2); Mean Corpuscular HGB Conc 27.4 g/dl (32-36); Mean Corpuscular Hemoglobin 19.2 pg (26-34); Monocytes Absolute Auto 0.7 K/mm3 (0.1-0.6); Monocytes Percent Auto 5.1 % (2.6-8.5); Neutrophils Absolute Auto 11.8 K/mm3 (1.3-6.7); Neutrophils Percent Auto 92.2 % (45.5-73.1); Platelet Count Result 245 k/mm3 (150-375); Red Cell Distribution Width 21.2 % (11.5-14.5); White Blood Count 12.8 K/mm3 (4.5-10.0)
--- NOTE | 2023-03-14 08:36 | WPDINTPN ---
Progress Note: A&P Assessment and Plan (1) Acute and chronic respiratory failure with hypercapnia: Code(s): J96.22 - Acute and chronic respiratory failure with hypercapnia Status: Acute Assessment and Plan: 03/12: Patient presented to the ED with complains of shortness of breath and low pulse oximetry. Upon arrival to the ER patient is O2 sats were 75 blood room air. According the records the patient stated that her insurance recently has change in the medical supply company came and to her BiPAP away. Since then she has had increased sleepiness, and difficulty breathing. Denies any fevers or chills, no chest pain or wheezing, denies any cough. -hypercapnia could be related to obstructive sleep apnea and no BiPAP due to the medical company taking that away since insurance has changed. Asthma exacerbation, obesity hypoventilation syndrome -patient was admitted to the IMU was placed on BiPAP and AVAPS despite which her ABGs showed worsening hypercapnia and patient was intubated during the early hours of 03/13/2023 -chest x-ray this morning: ?Cardiomegaly, congestive changes, probable pulmonary edema, possible pneumonia? -currently on CMV mode of ventilation, peep of 10, 70% FiO2, wean FiO2 to maintain O2 sats > 92% -continue vancomycin, ceftriaxone and azithromycin (03/13) for community-acquired pneumonia -continue bronchodilators -continue steroids 03/12/2023 Chest x-ray in the ER did not show any acute cardiopulmonary disease. 03/13/2023 CTA chest was nondiagnostic for pulmonary embolism due to body habitus, will up in upper extremities and suboptimal contrast enhancement of the pulmonary arteries. Diffuse patchy bilateral pulmonary infiltrates and bilateral lower lobe dependent atelectasis. (2) Sepsis: Qualifiers: Sepsis acute organ dysfunction status: without acute organ dysfunction Sepsis type: sepsis due to unspecified organism Qualified Code(s): A41.9 - Sepsis, unspecified organism Code(s): A41.9 - Sepsis, unspecified organism Status: Acute Assessment and Plan: Elevated WBC count, CTA chest showed bilateral patchy pulmonary infiltrates likely pneumonia -03/13 blood cultures have been obtained and pending -03/13 MRSA screen pending -blood pressures remain stable -received adequate amount of IV fluids, adequate urine output -continue antibiotics as above (3) Asthma: Qualifiers: Asthma complication type: unspecified Asthma persistence: unspecified Asthma severity: unspecified severity Qualified Code(s): J45.909 - Unspecified asthma, uncomplicated Code(s): J45.909 - Unspecified asthma, uncomplicated Status: Acute Assessment and Plan: Continue bronchodilators, steroids and antibiotics (4) Community acquired pneumonia: Qualifiers: Laterality: unspecified laterality Qualified Code(s): J18.9 - Pneumonia, unspecified organism Code(s): J18.9 - Pneumonia, unspecified organism Status: Acute Assessment and Plan: His CTA chest with diffuse patchy bilateral pulmonary infiltrates and bilateral lower lobe atelectasis -likely pneumonia -continue antibiotics as above (5) Gastroesophageal reflux disease: Qualifiers: Esophagitis presence: esophagitis presence not specified Qualified Code(s): K21.9 - Gastro-esophageal reflux disease without esophagitis Code(s): K21.9 - Gastro-esophageal reflux disease without esophagitis Status: Acute Assessment and Plan: Continue Protonix (6) Iron deficiency anemia: Qualifiers: Iron deficiency anemia type: unspecified iron deficiency Qualified Code(s): D50.9 - Iron deficiency anemia, unspecified Code(s): D50.9 - Iron deficiency anemia, unspecified Status: Acute Assessment and Plan: Continue ferrous sulfate tablets -hemoglobin dropped to 7.3 this morning -hold Lovenox -continue to monitor blood counts, transfuse if hemoglobin <
[2023-03-14 08:52] LABS: Platelet Estimate Adequate (Adequate)
[2023-03-14 08:53] LABS: Anisocytosis 3+ (NORMAL); Hypochromasia 2+ (NORMAL); Schistocytes None Seen (NORMAL)
[2023-03-14] MEDS: PROPOFOL IV EMULSION 100 ML 23.55 MG IV CONT (08:56)
--- NOTE | 2023-03-14 09:50 | P.PNIM_ITS ---
Progress Note: A&P Assessment and Plan (1) Acute and chronic respiratory failure with hypercapnia: Code(s): J96.22 - Acute and chronic respiratory failure with hypercapnia Status: Acute Assessment and Plan: 03/12: Patient presented to the ED with complains of shortness of breath and low pulse oximetry. Upon arrival to the ER patient is O2 sats were 75 blood room air. According the records the patient stated that her insurance recently has change in the medical supply company came and to her BiPAP away. Since then she has had increased sleepiness, and difficulty breathing. Denies any fevers or chills, no chest pain or wheezing, denies any cough. -hypercapnia could be related to obstructive sleep apnea and no BiPAP due to the medical company taking that away since insurance has changed. Asthma e xacerbation, obesity hypoventilation syndrome -patient was admitted to the IMU was placed on BiPAP and AVAPS despite which her ABGs showed worsening hypercapnia and patient was intubated during the early hours of 03/13/2023 -chest x-ray this morning: ?Cardiomegaly, congestive changes, probable pulmonary edema, possible pneumonia? -currently on CMV mode of ventilation, peep of 10, 70% FiO2, wean FiO2 to maintain O2 sats > 92% -continue vancomycin, ceftriaxone and azithromycin (03/13) for community- acquired pneumonia -continue bronchodilators -continue steroids 03/12/2023 Chest x-ray in the ER did not show any acute cardiopulmonary disease. 03/13/2023 CTA chest was nondiagnostic for pulmonary embolism due to body habitus, will up in upper extremities and suboptimal contrast enhancement of the pulmonary arteries. Diffuse patchy bilateral pulmonary infiltrates and bilateral lower lobe dependent atelectasis. (2) Sepsis: Qualifiers: Sepsis type: sepsis due to unspecified organism Sepsis acute organ dysfunction status: without acute organ dysfunction Qualified Code(s): A41.9 - Sepsis, unspecified organism Code(s): A41.9 - Sepsis, unspecified organism Status: Acute Assessment and Plan: Elevated WBC count, CTA chest showed bilateral patchy pulmonary infiltrates likely pneumonia -03/13 blood cultures have been obtained and pending -03/13 MRSA screen pending -blood pressures remain stable -received adequate amount of IV fluids, adequate urine output -continue antibiotics as above (3) Asthma: Qualifiers: Asthma complication type: unspecified Asthma persistence: unspecified Asthma severity: unspecified severity Qualified Code(s): J45.909 - Unspecified asthma, uncomplicated Code(s): J45.909 - Unspecified asthma, uncomplicated Status: Acute Assessment and Plan: Continue bronchodilators, steroids and antibiotics (4) Community acquired pneumonia: Qualifiers: Laterality: unspecified laterality Qualified Code(s): J18.9 - Pneumonia, unspecified organism Code(s): J18.9 - Pneumonia, unspecified organism Status: Acute Assessment and Plan: His CTA chest with diffuse patchy bilateral pulmonary infiltrates and bilateral lower lobe atelectasis -likely pneumonia -continue antibiotics as above (5) Gastroesophageal reflux disease: Qualifiers: Esophagitis presence: esophagitis presence not specified Qualified Code(s): K21.9 - Gastro-esophageal reflux disease without esophagitis Code(s): K21.9 - Gastro-esophageal reflux disease without esophagitis Status: Acute Assessment and Plan: Continue Protonix (6) Iron deficiency anemia: Qualifiers: Iron deficiency anemia type: unspecified iro
[2023-03-14 11:53] LABS: Glucose Point of Care 182 mg/dl (65-105)
[2023-03-14] MEDS: PROPOFOL IV EMULSION 100 ML 28.26 MG IV CONT ×4 (12:26→21:59)
[2023-03-14 12:53] LABS: Vancomycin Trough 10.2 ug/mL (10.0-20.0)
[2023-03-14 17:35] LABS: Glucose Point of Care 218 mg/dl (65-105)
[2023-03-14] MEDS: INSULIN ASPART (*BKC) 100 UNITS/ML SUB-Q (17:41)
[2023-03-14 20:35] LABS: Hematocrit 26.6 % (37.0-47.0); Hemoglobin 7.3 g/dL (12.0-15.0); Mean Corpuscular HGB Conc 27.4 g/dl (32-36); Mean Corpuscular Hemoglobin 19.1 pg (26-34); Mean Corpuscular Volume 69.6 fl (80-100); Mean Platelet Volume 8.8 fl (7.4-10.4); Platelet Count Result 256 k/mm3 (150-375); Red Blood Count 3.82 M/mm3 (4.2-5.4); Red Cell Distribution Width 21.8 % (11.5-14.5); White Blood Count 15.1 K/mm3 (4.5-10.0)
[2023-03-15] VITALS (37 sets, daily range): BP systolic 107–141; BP diastolic 56–83; PULSE 84–113; RESP 20–24; TEMP 36.4–37.6; O2SAT 91–96; BMI 63.1
[2023-03-15] MEDS: methylPREDNISolone SOD SUCC 125 MG VIAL 60 MG IV PUSH ×4 (00:08→18:07)
[2023-03-15] MEDS: IPRATROPIUM BR 0.02% INH SOLN 0.5 MG/2.5 ML VIAL INHALATION ×6 (00:15→20:29)
[2023-03-15] MEDS: ALBUTEROL SULFATE NEB 2.5 MG/3 ML INH INHALATION ×6 (00:15→20:29)
[2023-03-15 00:34] LABS: Glucose Point of Care 130 mg/dl (65-105)
[2023-03-15] MEDS: PROPOFOL IV EMULSION 100 ML 28.26 MG IV CONT ×6 (01:04→18:31)
[2023-03-15] MEDS: CENTRAL LINE FLUSH 10 ML IV PUSH ×3 (05:04→20:05)
[2023-03-15 05:19] LABS: Hematocrit 26.2 % (37.0-47.0); Hemoglobin 7.3 g/dL (12.0-15.0); Mean Corpuscular HGB Conc 27.9 g/dl (32-36); Mean Corpuscular Hemoglobin 19.4 pg (26-34); Mean Corpuscular Volume 69.7 fl (80-100); Mean Platelet Volume 8.7 fl (7.4-10.4); Platelet Count Result 248 k/mm3 (150-375); Red Blood Count 3.76 M/mm3 (4.2-5.4); Red Cell Distribution Width 21.6 % (11.5-14.5); White Blood Count 15.2 K/mm3 (4.5-10.0)
[2023-03-15 05:29] LABS: Alanine Aminotransferase 28 U/L (6-35); Albumin Level 3.1 g/dL (3.5-5.1); Alkaline Phosphatase 115 U/L (38-126); Anion Gap 3 mmol/L (8-16); Aspartate Amino Transferase 45 U/L (14-36); Bilirubin,Total 0.3 mg/dL (0.2-1.3); Blood Urea Nitrogen 26 mg/dL (7-17); Calcium 8.2 mg/dL (8.4-10.2); Carbon Dioxide 37 mmol/L (22-30); Chloride 95 mmol/L (98-107); Estimated CRCL calculation 124 ml/min; Estimated Glomerular Filt Rate > 60; Glucose 149 mg/dL (65-110); Lactic Acid Reflex 1.3 mmol/L (0.7-2.0); Magnesium 2.2 mg/dL (1.6-2.3); Phosphorus 3.5 mg/dL (2.5-4.5); Potassium 4.4 mmol/L (3.4-5.0); Sodium 135 mmol/L (137-145); Triglycerides 68 mg/dL (<150)
[2023-03-15 05:58] LABS: Base Excess ABG 5.9 mEq/l (+/-2.0); Carboxyhemoglobin 0.3 % THb (0-2.0); Device VENTILATOR; Fractional Inspired Oxygen 60 %; HCO3 ABG 30.9 mEq/l (22.0-26.0); Methemoglobin ABG 0.4 %THb (0-1.5); Modified Allen's Test Pass; Oxygen Saturation ABG 91.8 % (95.0-100.0); Oxyhemoglobin 89.5 % THb (90.0-100.0); PCO2 ABG 47.9 mmHg (35.0-45.0); PO2 ABG 61.1 mmHg (80.0-100.0); PO2 FiO2 Ratio Arterial Blood 1.02 %; Reduced Hemoglobin 9.8 %THb (0-5.0); Site Drawn RIGHT RADIAL; Total Hemoglobin 8.7 g/dL (12.0-18.0); pH ABG 7.428 (7.350-7.450)
[2023-03-15 05:59] LABS: Arterial Blood Gas PEEP 10 cmH2O; Arterial Blood Gas Tidal Volume 400 ml; Arterial Blood Gas Vent Mode CMV; Arterial Blood Gas Ventilator rate 20 /MIN
[2023-03-15] MEDS: AZITHROMYCIN 500 MG/NS 250 ML 500 MG/250 ML BAG 250 MG IVPB (09:04)
[2023-03-15] MEDS: FERROUS SULFATE 325 MG TABLET DR PO (09:05)
[2023-03-15] MEDS: busPIRone HCL 10 MG TABLET PO ×3 (09:05→18:07)
[2023-03-15] MEDS: MONTELUKAST SODIUM 10 MG TABLET PO (09:05)
[2023-03-15] MEDS: DULoxetine HCL 60 MG CAPSULE.DR PO (09:05)
[2023-03-15] MEDS: cefTRIAXone 2 GM/NS 100 ML 2 GM/100 ML BAG IVPB (09:05)
[2023-03-15] MEDS: PANTOPRAZOLE SODIUM IV 40 MG VIAL IV PUSH ×2 (09:06→20:01)
[2023-03-15 11:58] LABS: Glucose Point of Care 156 mg/dl (65-105)
--- NOTE | 2023-03-15 12:08 | PM.CNPUL ---
Assessment and Plan Assessment and plan (1) Obesity hypoventilation syndrome: Code(s): E66.2 - Morbid (severe) obesity with alveolar hypoventilation Status: Acute (2) Acute and chronic respiratory failure with hypercapnia: Code(s): J96.22 - Acute and chronic respiratory failure with hypercapnia Status: Acute Assessment and Plan: This 53-year-old female with long history of asthma,probably difficult to control given history of previous treatment with biologicals, morbid obesity, obesity hypoventilation on BiPAP support until several days prior to this admission presented with acute on chronic hypercapnic respiratory failure, few basal infiltrates on chest CT most likely related to basal atelectasis rather that to lower respiratory tract infection, no significant leukocytosis on admission, and positive MRSA screening. The patient has been treated with antibiotics, IV steroids, nebulized short-acting bronchodilators-presumably for asthma exacerbation community-acquired pneumonia, while fully sedated on mechanical ventilation using lung protective protocol with low tidal volumes, peep of 10. The patient reportedly is unable to wean due to high FiO2. It appears as though the patient's acute on chronic hypercarbic respiratory failure is related to exacerbation of obesity hypoventilation rather than asthma exacerbation. This is based on lack of wheezing on physical exam and also by the non significantly elevated airway resistance as measured by the ventilator ( taking into account the small caliber ET, and treatment with steroids since admission). Chest CT shows bilateral infiltrates and prominent pulmonary arteries. The infiltrates are most likely related to basilar atelectasis. Review of respiratory mechanics on the ventilator in conjunction with the chest CT findings shows that the patient continues to have a highly abnormal volume-pressure curve related to basal atelectasis and lung derecruitment. My recommendations are as follows: I would decrease the dose of IV steroids to 60 mg Solu-Medrol daily for now. I would continue with current antibiotics while checking sputum culture. Positive MRSA screening probably indicates chronic carrier as she had a positive screening test 5 months ago. Patient will probably benefit from a higher PEEP to recruit the atelectatic lung. This can be done ideally more in a.m. at which time the sedation should be discontinued, patient be ventilated with a higher PEEP which is expected to improve lung recruitment and gas exchange. Anticipate extubation within the next 48 hours and because of that I would not continue with tube feedings as this may increase risk of aspiration. The patient should also be started on DVT prophylaxis. (3) MRSA (methicillin resistant Staphylococcus aureus) carrier: Code(s): Z22.322 - Carrier or suspected carrier of Methicillin resistant Staphylococcus aureus Status: Chronic (4) Morbid obesity with BMI of 50.0-59.9, adult: Code(s): E66.01 - Morbid (severe) obesity due to excess calories; Z68.43 - Body mass index [BMI] 50.0-59.9, adult Status: Chronic (5) Asthma: Qualifiers: Asthma complication type: unspecified Asthma persistence: unspecified Asthma severity: unspecified severity Qualified Code(s): J45.909 - Unspecified asthma, uncomplicated Code(s): J45.909 - Unspecified asthma, uncomplicated Status: Acute History of Present Illness History of Present Illness Consult date: 03/15/23 Chief complaint: Hypercapnic Respiratory Failure Narrative: This 53-year-old female presented with acute mental status changes. The patient has a history of morbid obesity, history of asthma for many years. This report is based on information obtained primarily after reviewing the patient's chart as patient is currently intubated and fully sedated in the intensive care unit. Past medical history significant for multiple hospitalizatio
--- NOTE | 2023-03-15 12:23 | WPDINTPN ---
Progress Note: A&P Assessment and Plan (1) Acute and chronic respiratory failure with hypercapnia: Code(s): J96.22 - Acute and chronic respiratory failure with hypercapnia Status: Acute Assessment and Plan: 03/12: Patient presented to the ED with complains of shortness of breath and low pulse oximetry. Upon arrival to the ER patient is O2 sats were 75 blood room air. According the records the patient stated that her insurance recently has change in the medical supply company came and to her BiPAP away. Since then she has had increased sleepiness, and difficulty breathing. Denies any fevers or chills, no chest pain or wheezing, denies any cough. -hypercapnia could be related to obstructive sleep apnea and no BiPAP due to the medical company taking that away since insurance has changed. Asthma exacerbation, obesity hypoventilation syndrome -patient was admitted to the IMU was placed on BiPAP and AVAPS despite which her ABGs showed worsening hypercapnia and patient was intubated during the early hours of 03/13/2023 -chest x-ray this morning: Small bilateral pleural effusions with mild bibasilar pulmonary edema/atelectasis. -currently on CMV mode of ventilation, peep of 10, 70% FiO2, wean FiO2 to maintain O2 sats > 92% -patient self diuresing -continue vancomycin, ceftriaxone and azithromycin (03/13) for community-acquired pneumonia -continue bronchodilators -continue steroids 03/12/2023 Chest x-ray in the ER did not show any acute cardiopulmonary disease. 03/13/2023 CTA chest was nondiagnostic for pulmonary embolism due to body habitus, will up in upper extremities and suboptimal contrast enhancement of the pulmonary arteries. Diffuse patchy bilateral pulmonary infiltrates and bilateral lower lobe dependent atelectasis. (2) Sepsis: Qualifiers: Sepsis acute organ dysfunction status: without acute organ dysfunction Sepsis type: sepsis due to unspecified organism Qualified Code(s): A41.9 - Sepsis, unspecified organism Code(s): A41.9 - Sepsis, unspecified organism Status: Acute Assessment and Plan: Elevated WBC count, CTA chest showed bilateral patchy pulmonary infiltrates likely pneumonia -03/13 blood cultures -preliminary results are negative x2 -03/13 MRSA screen POSITIVE -blood pressures remain stable -received adequate amount of IV fluids, adequate urine output -continue antibiotics as above (3) Asthma: Qualifiers: Asthma complication type: unspecified Asthma persistence: unspecified Asthma severity: unspecified severity Qualified Code(s): J45.909 - Unspecified asthma, uncomplicated Code(s): J45.909 - Unspecified asthma, uncomplicated Status: Acute Assessment and Plan: Continue bronchodilators, steroids and antibiotics (4) Community acquired pneumonia: Qualifiers: Laterality: unspecified laterality Qualified Code(s): J18.9 - Pneumonia, unspecified organism Code(s): J18.9 - Pneumonia, unspecified organism Status: Acute Assessment and Plan: His CTA chest with diffuse patchy bilateral pulmonary infiltrates and bilateral lower lobe atelectasis -likely pneumonia -continue antibiotics as above (5) Gastroesophageal reflux disease: Qualifiers: Esophagitis presence: esophagitis presence not specified Qualified Code(s): K21.9 - Gastro-esophageal reflux disease without esophagitis Code(s): K21.9 - Gastro-esophageal reflux disease without esophagitis Status: Acute Assessment and Plan: Continue Protonix (6) Iron deficiency anemia: Qualifiers: Iron deficiency anemia type: unspecified iron deficiency Qualified Code(s): D50.9 - Iron deficiency anemia, unspecified Code(s): D50.9 - Iron deficiency anemia, unspecified Status: Acute Assessment and Plan: Continue ferrous sulfate tablets -hemoglobin has been low, stabilized at 7.3 -hold Lovenox -continue to monitor bl
[2023-03-15 14:05] LABS: Vancomycin Trough 16.6 ug/mL (10.0-20.0)
[2023-03-15 18:09] LABS: Glucose Point of Care 175 mg/dl (65-105)
[2023-03-15] MEDS: MINERAL OIL/WHITE PETROLATUM OINTMENT 1 APPLIC EACH EYE (20:01)
[2023-03-15] MEDS: PROPOFOL IV EMULSION 100 ML 32.97 MG IV CONT (22:22)
[2023-03-16] VITALS (43 sets, daily range): BP systolic 111–140; BP diastolic 53–79; PULSE 77–105; RESP 17–84; TEMP 36.7–37.2; O2SAT 89–100
[2023-03-16] MEDS: ALBUTEROL SULFATE NEB 2.5 MG/3 ML INH INHALATION ×7 (00:14→23:57)
[2023-03-16] MEDS: IPRATROPIUM BR 0.02% INH SOLN 0.5 MG/2.5 ML VIAL INHALATION ×7 (00:14→23:57)
[2023-03-16 00:19] LABS: Glucose Point of Care 133 mg/dl (65-105)
[2023-03-16] MEDS: methylPREDNISolone SOD SUCC 125 MG VIAL 60 MG IV PUSH ×2 (00:51→05:07)
[2023-03-16] MEDS: PROPOFOL IV EMULSION 100 ML 28.26 MG IV CONT ×6 (01:15→17:36)
[2023-03-16 05:07] LABS: Hemoglobin 7.3 g/dL (12.0-15.0); Mean Corpuscular Hemoglobin 18.8 pg (26-34); Mean Corpuscular Volume 69.6 fl (80-100); Mean Platelet Volume 8.8 fl (7.4-10.4); Platelet Count Result 236 k/mm3 (150-375); Red Blood Count 3.88 M/mm3 (4.2-5.4); Red Cell Distribution Width 21.9 % (11.5-14.5)
[2023-03-16] MEDS: CENTRAL LINE FLUSH 10 ML IV PUSH ×3 (05:07→20:22)
[2023-03-16 05:23] LABS: Alanine Aminotransferase 42 U/L (6-35); Albumin Level 3.1 g/dL (3.5-5.1); Alkaline Phosphatase 97 U/L (38-126); Anion Gap 1 mmol/L (8-16); Aspartate Amino Transferase 45 U/L (14-36); Bilirubin,Total 0.3 mg/dL (0.2-1.3); Blood Urea Nitrogen 27 mg/dL (7-17); Calcium 7.9 mg/dL (8.4-10.2); Carbon Dioxide 38 mmol/L (22-30); Chloride 97 mmol/L (98-107); Estimated CRCL calculation 143 ml/min; Estimated Glomerular Filt Rate > 60; Glucose 160 mg/dL (65-110); Magnesium 2.3 mg/dL (1.6-2.3); Phosphorus 3.8 mg/dL (2.5-4.5); Potassium 4.6 mmol/L (3.4-5.0); Sodium 136 mmol/L (137-145)
[2023-03-16 05:24] LABS: pH ABG 7.448 (7.350-7.450)
[2023-03-16 05:25] LABS: Alveolar/Arterial O2 Gradient 236.1 mmHg; HCO3 ABG 35.2 mEq/l (22.0-26.0); Oxygen Content ABG 10.8 %vol (16.0-22.0); Oxygen Saturation ABG 92.3 % (95.0-100.0); PO2 ABG 61.9 mmHg (80.0-100.0); Total Hemoglobin 8.5 g/dL (12.0-18.0)
[2023-03-16 05:26] LABS: Carboxyhemoglobin 0.3 % THb (0-2.0); Methemoglobin ABG 0.5 %THb (0-1.5); Oxyhemoglobin 90.1 % THb (90.0-100.0)
[2023-03-16 05:27] LABS: Device VENTILATOR; Fractional Inspired Oxygen 50 %; Modified Allen's Test Pass; PO2 FiO2 Ratio Arterial Blood 1.24 %; Site Drawn LEFT RADIAL
[2023-03-16 05:28] LABS: Arterial Blood Gas PEEP 10 cmH2O; Arterial Blood Gas Tidal Volume 400 ml; Arterial Blood Gas Vent Mode CMV; Arterial Blood Gas Ventilator rate 20 /MIN
[2023-03-16 08:05] LABS: NT Pro B Type Natriuretic Pept 121 pg/mL (19.9-100)
[2023-03-16] MEDS: busPIRone HCL 10 MG TABLET PO ×3 (08:14→16:56)
[2023-03-16] MEDS: MONTELUKAST SODIUM 10 MG TABLET PO (08:14)
[2023-03-16] MEDS: DULoxetine HCL 60 MG CAPSULE.DR PO (08:14)
[2023-03-16] MEDS: FUROSEMIDE INJ 40 MG/4 ML VIAL IV PUSH (08:14)
[2023-03-16] MEDS: cefTRIAXone 2 GM/NS 100 ML 2 GM/100 ML BAG IVPB (08:15)
[2023-03-16] MEDS: AZITHROMYCIN 500 MG/NS 250 ML 500 MG/250 ML BAG 250 MG IVPB (08:22)
[2023-03-16] MEDS: PANTOPRAZOLE SODIUM IV 40 MG VIAL IV PUSH ×2 (08:22→20:21)
[2023-03-16] MEDS: MINERAL OIL/WHITE PETROLATUM OINTMENT 1 APPLIC EACH EYE ×2 (08:23→20:22)
--- NOTE | 2023-03-16 09:13 | PM.PNPUL ---
Progress Note: A&P Assessment and Plan (1) Hypercapnic respiratory failure: Code(s): J96.92 - Respiratory failure, unspecified with hypercapnia Status: Acute (2) Obesity hypoventilation syndrome: Code(s): E66.2 - Morbid (severe) obesity with alveolar hypoventilation Status: Acute (3) Acute and chronic respiratory failure with hypercapnia: Code(s): J96.22 - Acute and chronic respiratory failure with hypercapnia Status: Acute Assessment and Plan: This 53-year-old female with long history of asthma,probably difficult to control given history of previous treatment with biologicals, morbid obesity, obesity hypoventilation on BiPAP support until several days prior to this admission presented with acute on chronic hypercapnic respiratory failure, few basal infiltrates on chest CT most likely related to basal atelectasis rather that to lower respiratory tract infection, no significant leukocytosis on admission, and positive MRSA screening.? The patient has been treated with antibiotics, IV steroids, nebulized short-acting bronchodilators-presumably for asthma exacerbation community-acquired pneumonia, while fully sedated on mechanical ventilation using lung protective protocol with low tidal volumes, peep of 10.? The patient reportedly is unable to wean due to high FiO2. ?It appears as though the patient's acute on chronic hypercarbic respiratory failure is related to exacerbation of obesity hypoventilation rather than asthma exacerbation.? This is based on lack of wheezing on physical exam and also by the non significantly elevated airway resistance as measured by the ventilator ( taking into account the small caliber ET, and treatment with steroids since admission).? Chest CT shows bilateral infiltrates and prominent pulmonary arteries.? The infiltrates are most likely related to basilar atelectasis.? Review of respiratory mechanics on the ventilator in conjunction with the chest CT findings shows that the patient continues to have a highly abnormal volume-pressure curve related to basal atelectasis and lung derecruitment.? Patient remains on same ventilatory settings this a.m.. She is fully awake answering questions. She is hemodynamically stable. She is still on 3 antibiotics, currently on lower dose of IV steroids, still on short-acting bronchodilators. Physical exam showed clear lungs anteriorly. Chest x-ray continues to show basilar atelectasis as before. It appears as though the ventilator dependence and hypoxemia are most likely related to bibasilar atelectasis as shown by chest imaging studies. Patient will probably benefit from a higher PEEP trial while monitoring respiratory mechanics on ventilator. The case was discussed with the postdoctoral fellow who will continue to be in charge of the ventilator care and other treatment aspects of this critically ill patient. We will resume full respiratory care for this patient once she is out of the ICU. At this point we will be standing by in case the patient develops new pulmonary complications. Please call with any questions. (4) MRSA (methicillin resistant Staphylococcus aureus) carrier: Code(s): Z22.322 - Carrier or suspected carrier of Methicillin resistant Staphylococcus aureus Status: Chronic (5) Morbid obesity with BMI of 50.0-59.9, adult: Code(s): E66.01 - Morbid (severe) obesity due to excess calories; Z68.43 - Body mass index [BMI] 50.0-59.9, adult Status: Chronic (6) Obstructive sleep apnea: Code(s): G47.33 - Obstructive sleep apnea (adult) (pediatric) Status: Chronic (7) Asthma: Qualifiers: Asthma complication type: unspecified Asthma persistence: unspecified Asthma severity: unspecified severity Qualified Code(s): J45.909 - Unspecified asthma, uncomplicated Code(s): J45.909 - Unspecified asthma, uncomplicated Status: Acute Subjective Date/time seen: 03/16/23 09:13 Interval history: T
--- NOTE | 2023-03-16 10:44 | WPDINTPN ---
Progress Note: A&P Assessment and Plan (1) Acute and chronic respiratory failure with hypercapnia: Code(s): J96.22 - Acute and chronic respiratory failure with hypercapnia Status: Acute Assessment and Plan: 03/12: Patient presented to the ED with complains of shortness of breath and low pulse oximetry. Upon arrival to the ER patient is O2 sats were 75 blood room air. According the records the patient stated that her insurance recently has change in the medical supply company came and to her BiPAP away. Since then she has had increased sleepiness, and difficulty breathing. Denies any fevers or chills, no chest pain or wheezing, denies any cough. -hypercapnia could be related to obstructive sleep apnea and no BiPAP due to the medical company taking that away since insurance has changed. Asthma exacerbation, obesity hypoventilation syndrome -patient was admitted to the IMU was placed on BiPAP and AVAPS despite which her ABGs showed worsening hypercapnia and patient was intubated during the early hours of 03/13/2023 -chest x-ray this morning: Small bilateral pleural effusions with mild bibasilar pulmonary edema/atelectasis. -currently on CMV mode of ventilation, peep of 10, 50% FiO2, wean FiO2 to maintain O2 sats > 92% -decrease volume to 350 mL to avoid over ventilation as patient does have history of chronic CO2 retention -DC IV fluids and Lasix IV x1 -once FiO2 requirement is down will evaluate patient for a weaning trial and possible extubation to an NIPPV -continue ceftriaxone and azithromycin (03/13) for possible community-acquired pneumonia. DC vancomycin -continue bronchodilators -continue steroids but decrease to q.day 03/12/2023 Chest x-ray in the ER did not show any acute cardiopulmonary disease. 03/13/2023 CTA chest was nondiagnostic for pulmonary embolism due to body habitus, will up in upper extremities and suboptimal contrast enhancement of the pulmonary arteries. Diffuse patchy bilateral pulmonary infiltrates and bilateral lower lobe dependent atelectasis. (2) Sepsis: Qualifiers: Sepsis type: sepsis due to unspecified organism Sepsis acute organ dysfunction status: without acute organ dysfunction Qualified Code(s): A41.9 - Sepsis, unspecified organism Code(s): A41.9 - Sepsis, unspecified organism Status: Acute Assessment and Plan: Elevated WBC count, CTA chest showed bilateral patchy pulmonary infiltrates ? pneumonia -03/13 blood cultures -preliminary results are negative x2 -03/13 MRSA screen was POSITIVE -blood pressures remain stable. Procalcitonin level is low. WBC has normalized and she is afebrile -received adequate amount of IV fluids, adequate urine output -will discontinue vancomycin and continue course of azithromycin and Rocephin (3) Asthma: Qualifiers: Asthma complication type: unspecified Asthma persistence: unspecified Asthma severity: unspecified severity Qualified Code(s): J45.909 - Unspecified asthma, uncomplicated Code(s): J45.909 - Unspecified asthma, uncomplicated Status: Acute Assessment and Plan: Continue bronchodilators, steroids and antibiotics (4) Community acquired pneumonia: Qualifiers: Laterality: unspecified laterality Qualified Code(s): J18.9 - Pneumonia, unspecified organism Code(s): J18.9 - Pneumonia, unspecified organism Status: Acute Assessment and Plan: His CTA chest with diffuse patchy bilateral pulmonary infiltrates and bilateral lower lobe atelectasis -likely pneumonia -continue antibiotics as above (5) Gastroesophageal reflux disease: Qualifiers: Esophagitis presence: esophagitis presence not specified Qualified Code(s): K21.9 - Gastro-esophageal reflux disease without esophagitis Code(s): K21.9 - Gastro-esophageal reflux disease without esophagitis Status: Acute Assessment and Plan: Continue Protonix (6) Iron deficiency anemia:
--- NOTE | 2023-03-16 10:44 | PCNFU ---
Nutrition Follow-Up Complete: Increased protein energy needs related to mechanical ventilation, as evidenced by need for full tube feeding, predictive equations. Meet estimated protein energy needs - Goal being met with high protein tube feeding Goal: Pt current nutrition is Vital HP @ goal rate 70 ml/h: 1540 kcal, 134 g protein, 1287 ml free water. Propofol @ 28.26 ml/h adds 746 kcals. Flushes 30 ml q 4 h. Nutrition recommendation: Continue with current nutrition care plan. Agree with orders Last recorded weight is 162 kg. Bowel Motility: No BMs recorded Labs Reviewed: Hgb 7.3, Hct 27, Alb 3.1, Na 136, BUN 27, Cre 0.6 Meds Noted: Sedation with propofol only. Rocephin Skin: WNL Additional Notes: Intubated day 2. Tube feeding running at goal. Sedation with propofol only. Continue with current care plan and orders. Monitoring tube feeding tolerance, medications, plan of care, labs, weights. Following daily in ICU, reassess Wednesday and Wednesday
[2023-03-16 12:33] LABS: Glucose Point of Care 144 mg/dl (65-105)
[2023-03-16 12:48] LABS: Anion Gap 4 mmol/L (8-16); Blood Urea Nitrogen 29 mg/dL (7-17); Calcium 7.8 mg/dL (8.4-10.2); Carbon Dioxide 37 mmol/L (22-30); Chloride 94 mmol/L (98-107); Estimated CRCL calculation 143 ml/min; Estimated Glomerular Filt Rate > 60; Glucose 138 mg/dL (65-110); Potassium 4.1 mmol/L (3.4-5.0); Sodium 135 mmol/L (137-145)
[2023-03-16 16:59] LABS: Glucose Point of Care 103 mg/dl (65-105)
[2023-03-16] MEDS: PROPOFOL IV EMULSION 100 ML 37.68 MG IV CONT (21:00)
[2023-03-16] MEDS: PROPOFOL IV EMULSION 100 ML 47.1 MG IV CONT (22:58)
[2023-03-17] VITALS (34 sets, daily range): BP systolic 102–144; BP diastolic 51–73; PULSE 87–108; RESP 10–25; TEMP 36.6–37.4; O2SAT 92–100
[2023-03-17 00:48] LABS: Glucose Point of Care 81 mg/dl (65-105)
[2023-03-17] MEDS: PROPOFOL IV EMULSION 100 ML 47.1 MG IV CONT ×3 (01:06→05:11)
[2023-03-17] MEDS: ALBUTEROL SULFATE NEB 2.5 MG/3 ML INH INHALATION ×6 (04:00→23:35)
[2023-03-17] MEDS: IPRATROPIUM BR 0.02% INH SOLN 0.5 MG/2.5 ML VIAL INHALATION ×6 (04:00→23:35)
[2023-03-17 05:11] LABS: Alveolar/Arterial O2 Gradient 174.8 mmHg; Base Excess ABG 11.6 mEq/l (+/-2.0); Carboxyhemoglobin 0.3 % THb (0-2.0); Fractional Inspired Oxygen 45 %; HCO3 ABG 37.3 mEq/l (22.0-26.0); Methemoglobin ABG 0.6 %THb (0-1.5); Oxygen Content ABG 11.6 %vol (16.0-22.0); Oxyhemoglobin 93.7 % THb (90.0-100.0); PO2 ABG 81.2 mmHg (80.0-100.0); Reduced Hemoglobin 5.4 %THb (0-5.0); Total Hemoglobin 8.7 g/dL (12.0-18.0); pH ABG 7.434 (7.350-7.450)
[2023-03-17 05:12] LABS: Device VENTILATOR; Modified Allen's Test Pass; Site Drawn LEFT RADIAL
[2023-03-17 05:13] LABS: Arterial Blood Gas PEEP 12 cmH2O; Arterial Blood Gas Tidal Volume 360 ml; Arterial Blood Gas Vent Mode CMV; Arterial Blood Gas Ventilator rate 20 /MIN
[2023-03-17 05:45] LABS: Hematocrit 27.3 % (37.0-47.0); Hemoglobin 7.4 g/dL (12.0-15.0); Mean Corpuscular HGB Conc 27.1 g/dl (32-36); Mean Corpuscular Hemoglobin 18.9 pg (26-34); Mean Corpuscular Volume 69.8 fl (80-100); Mean Platelet Volume 8.9 fl (7.4-10.4); Platelet Count Result 224 k/mm3 (150-375); Red Blood Count 3.91 M/mm3 (4.2-5.4); Red Cell Distribution Width 21.9 % (11.5-14.5); White Blood Count 8.3 K/mm3 (4.5-10.0)
[2023-03-17 05:57] LABS: Alanine Aminotransferase 35 U/L (6-35); Alkaline Phosphatase 91 U/L (38-126); Anion Gap 2 mmol/L (8-16); Aspartate Amino Transferase 35 U/L (14-36); Bilirubin,Total 0.3 mg/dL (0.2-1.3); Blood Urea Nitrogen 34 mg/dL (7-17); Calcium 7.8 mg/dL (8.4-10.2); Carbon Dioxide 38 mmol/L (22-30); Chloride 97 mmol/L (98-107); Estimated CRCL calculation 124 ml/min; Estimated Glomerular Filt Rate > 60; Glucose 107 mg/dL (65-110); Magnesium 2.2 mg/dL (1.6-2.3); Phosphorus 4.9 mg/dL (2.5-4.5); Potassium 3.6 mmol/L (3.4-5.0); Sodium 137 mmol/L (137-145); Triglycerides 160 mg/dL (<150)
[2023-03-17] MEDS: CENTRAL LINE FLUSH 10 ML IV PUSH ×3 (07:26→21:43)
[2023-03-17] MEDS: cefTRIAXone 2 GM/NS 100 ML 2 GM/100 ML BAG IVPB (07:55)
[2023-03-17] MEDS: POTASSIUM CHLORIDE 20 MEQ PACKET (FOR LIQUID) 40 MEQ FEED TUBE (07:55)
[2023-03-17] MEDS: AZITHROMYCIN 500 MG/NS 250 ML 500 MG/250 ML BAG 250 MG IVPB (07:55)
[2023-03-17] MEDS: MONTELUKAST SODIUM 10 MG TABLET PO (07:56)
[2023-03-17] MEDS: busPIRone HCL 10 MG TABLET PO ×3 (07:56→16:58)
[2023-03-17] MEDS: methylPREDNISolone SOD SUCC 125 MG VIAL 60 MG IV PUSH (07:56)
[2023-03-17] MEDS: FERROUS SULFATE 325 MG TABLET DR PO (07:56)
[2023-03-17] MEDS: DULoxetine HCL 60 MG CAPSULE.DR PO (07:56)
[2023-03-17] MEDS: PANTOPRAZOLE SODIUM IV 40 MG VIAL IV PUSH ×2 (07:56→21:42)
[2023-03-17 08:25] LABS: Alveolar/Arterial O2 Gradient 182.2 mmHg; Base Excess ABG 9.6 mEq/l (+/-2.0); Fractional Inspired Oxygen 45 %; HCO3 ABG 34.9 mEq/l (22.0-26.0); Oxygen Content ABG 11.7 %vol (16.0-22.0); Oxygen Saturation ABG 95.8 % (95.0-100.0); Oxyhemoglobin 93.7 % THb (90.0-100.0); PCO2 ABG 52.7 mmHg (35.0-45.0); PO2 ABG 78.7 mmHg (80.0-100.0); PO2 FiO2 Ratio Arterial Blood 1.75 %; Total Hemoglobin 8.8 g/dL (12.0-18.0); pH ABG 7.439 (7.350-7.450)
[2023-03-17 08:28] LABS: Modified Allen's Test Pass; Site Drawn RIGHT RADIAL
[2023-03-17 08:29] LABS: Device VENTILATOR
[2023-03-17 08:30] LABS: Arterial Blood Gas PEEP 5 cmH2O; Arterial Blood Gas Pressure Support 10 cmH2O; Arterial Blood Gas Vent Mode SPONTANEOUS
--- NOTE | 2023-03-17 08:30 | WPDINTPN ---
Progress Note: A&P Assessment and Plan (1) Acute and chronic respiratory failure with hypercapnia: Code(s): J96.22 - Acute and chronic respiratory failure with hypercapnia Status: Acute Assessment and Plan: 03/12: Patient presented to the ED with complains of shortness of breath and low pulse oximetry. Upon arrival to the ER patient is O2 sats were 75 blood room air. According the records the patient stated that her insurance recently has change in the medical supply company came and to her BiPAP away. Since then she has had increased sleepiness, and difficulty breathing. Denies any fevers or chills, no chest pain or wheezing, denies any cough. -hypercapnia could be related to obstructive sleep apnea and no BiPAP due to the medical company taking that away since insurance has changed. Asthma exacerbation, obesity hypoventilation syndrome -patient was admitted to the IMU was placed on BiPAP and AVAPS despite which her ABGs showed worsening hypercapnia and patient was intubated during the early hours of 03/13/2023 -chest x-ray reviewed -currently on CMV mode of ventilation, peep of 12, 40% FiO2, - 5/10 PSV SBT done for more than 1/2 hour. RSBI, ABGI and Vitals acceptable. Pt awake and following commands. Spoke to patient and she is fairly comfortable in using AVAPS in the past and is agreeable to try once extubated. Will extubate to BiPAP and monitor. NPO for now. Bipap PRN and at night. -continue ceftriaxone and azithromycin (03/13) for possible community-acquired pneumonia course. DCed vancomycin -continue bronchodilators -continue steroids and taper 03/12/2023 Chest x-ray in the ER did not show any acute cardiopulmonary disease. 03/13/2023 CTA chest was nondiagnostic for pulmonary embolism due to body habitus, will up in upper extremities and suboptimal contrast enhancement of the pulmonary arteries. Diffuse patchy bilateral pulmonary infiltrates and bilateral lower lobe dependent atelectasis. (2) Sepsis: Qualifiers: Sepsis type: sepsis due to unspecified organism Sepsis acute organ dysfunction status: without acute organ dysfunction Qualified Code(s): A41.9 - Sepsis, unspecified organism Code(s): A41.9 - Sepsis, unspecified organism Status: Acute Assessment and Plan: Elevated WBC count, CTA chest showed bilateral patchy pulmonary infiltrates ? pneumonia -03/13 blood cultures -preliminary results are negative x2 -03/13 MRSA screen was POSITIVE -blood pressures remain stable. Procalcitonin level is low. WBC has normalized and she is afebrile -received adequate amount of IV fluids, adequate urine output -will discontinue vancomycin and continue course of azithromycin and Rocephin (3) Asthma: Qualifiers: Asthma complication type: unspecified Asthma persistence: unspecified Asthma severity: unspecified severity Qualified Code(s): J45.909 - Unspecified asthma, uncomplicated Code(s): J45.909 - Unspecified asthma, uncomplicated Status: Acute Assessment and Plan: Continue bronchodilators, steroids and antibiotics (4) Community acquired pneumonia: Qualifiers: Laterality: unspecified laterality Qualified Code(s): J18.9 - Pneumonia, unspecified organism Code(s): J18.9 - Pneumonia, unspecified organism Status: Acute Assessment and Plan: His CTA chest with diffuse patchy bilateral pulmonary infiltrates and bilateral lower lobe atelectasis -likely pneumonia -continue antibiotics as above (5) Gastroesophageal reflux disease: Qualifiers: Esophagitis presence: esophagitis presence not specified Qualified Code(s): K21.9 - Gastro-esophageal reflux disease without esophagitis Code(s): K21.9 - Gastro-esophageal reflux disease without esophagitis Status: Acute Assessment and Plan: Continue Protonix (6) Iron deficiency anemia: Qualifiers: Iron deficiency anemia type: unspecified iron de
[2023-03-17] MEDS: ENOXAPARIN 40 MG/0.4 ML SYRINGE SUB-Q (09:20)
--- NOTE | 2023-03-17 10:42 | PCFNICU ---
ICU Rounding Note: Pt current nutrition is NPO Nutrition recommendation:advance diet as tolerated per MD orders. Last recorded weight is 159.7 kg, down from 161.7 kg on admit. Bowel Motility:No BM reported. Labs Reviewed:TG 160,BUN 34, Alb 3.0,Hgb 7.8,Hct 27.3 Meds Noted:Rocephin,Protonix, Ferrous Sulfate. Skin:WNL Additional Notes: Patient extubated today-current with Bipap. Diet order: NPO. Plans to advance diet as tolerated. Following daily in ICU, reassess every 3 days.
[2023-03-17 12:15] LABS: Glucose Point of Care 154 mg/dl (65-105)
--- NOTE | 2023-03-17 19:18 | PM.IMPN ---
Progress Note: A&P Assessment and Plan (1) Acute and chronic respiratory failure with hypercapnia: Code(s): J96.22 - Acute and chronic respiratory failure with hypercapnia Status: Acute Assessment and Plan: Patient presented to the ED with complains of shortness of breath and low pulse oximetry. SpO2 75% RA on arrival. ABG 7.24/83/70 on 3L. CXR on admission was clear. According the records the patient stated that her insurance recently has change in the medical supply company came and took her BiPAP away. Since then she has had increased sleepiness and difficulty breathing but no fevers, chills,chest pain, wheezing or cough. -hypercapnia could be related to untreated GEORGE, asthma exacerbation, obesity hypoventilation syndrome and/or PNA -patient was admitted to the IMU was placed on BiPAP and AVAPS but ABGs worsened and patient was intubated during the early hours of 03/13/23 -CTA chest was suboptimal but no apparent PE. patient did well. ABG improved. She was able to be extubated today -continue ceftriaxone and azithromycin (03/13) for possible community-acquired pneumonia course. Vancomycin stopped -continue bronchodilators -continue steroids and taper (2) Sepsis: Qualifiers: Sepsis type: sepsis due to unspecified organism Sepsis acute organ dysfunction status: without acute organ dysfunction Qualified Code(s): A41.9 - Sepsis, unspecified organism Code(s): A41.9 - Sepsis, unspecified organism Status: Acute Assessment and Plan: Elevated WBC count on admission to 11K. CTA chest showed bilateral patchy pulmonary infiltrates possibly pneumonia -received adequate amount of IV fluids -03/13 blood cultures NGTD -03/13 MRSA screen was POSITIVE -03/16 Sputum pending -blood pressures remain stable. Procalcitonin level is low. WBC has normalized and she is afebrile -will discontinue vancomycin and continue course of azithromycin and Rocephin (3) Asthma: Qualifiers: Asthma complication type: unspecified Asthma persistence: unspecified Asthma severity: unspecified severity Qualified Code(s): J45.909 - Unspecified asthma, uncomplicated Code(s): J45.909 - Unspecified asthma, uncomplicated Status: Acute Assessment and Plan: Continue bronchodilators, steroids and antibiotics (4) Community acquired pneumonia: Qualifiers: Laterality: unspecified laterality Qualified Code(s): J18.9 - Pneumonia, unspecified organism Code(s): J18.9 - Pneumonia, unspecified organism Status: Acute Assessment and Plan: As above (5) Gastroesophageal reflux disease: Qualifiers: Esophagitis presence: esophagitis presence not specified Qualified Code(s): K21.9 - Gastro-esophageal reflux disease without esophagitis Code(s): K21.9 - Gastro-esophageal reflux disease without esophagitis Status: Acute Assessment and Plan: Stable. Continue Protonix (6) Iron deficiency anemia: Qualifiers: Iron deficiency anemia type: unspecified iron deficiency Qualified Code(s): D50.9 - Iron deficiency anemia, unspecified Code(s): D50.9 - Iron deficiency anemia, unspecified Status: Acute Assessment and Plan: Hgb 8.5 on admission and running mostly in the 7 range. Known hx of iron deficiency anemia noted in October. Continue ferrous sulfate tablets -continue to monitor CBC, transfuse if hemoglobin < 7.0 (7) Morbid obesity with BMI of 50.0-59.9, adult: Code(s): E66.01 - Morbid (severe) obesity due to excess calories; Z68.43 - Body mass index [BMI] 50.0-59.9, adult Status: Chronic Assessment and Plan: Patient will require lifestyle modification (8) Obstructive sleep apnea: Code(s): G47.33 - Obstructive sleep apnea (adult) (pediatric) Status: Acute Assessment and Plan: Continue AVAPS here at night, with naps and as needed. Care coordination set up BiPAP
[2023-03-18] VITALS (21 sets, daily range): BP systolic 94–149; BP diastolic 46–69; PULSE 87–109; RESP 15–36; TEMP 36.4–37.2; O2SAT 90–100
[2023-03-18] MEDS: ALBUTEROL SULFATE NEB 2.5 MG/3 ML INH INHALATION (03:27)
[2023-03-18] MEDS: IPRATROPIUM BR 0.02% INH SOLN 0.5 MG/2.5 ML VIAL INHALATION (03:28)
[2023-03-18 06:19] LABS: Hematocrit 27.7 % (37.0-47.0); Hemoglobin 7.4 g/dL (12.0-15.0); Mean Corpuscular HGB Conc 26.7 g/dl (32-36); Mean Corpuscular Hemoglobin 19.1 pg (26-34); Mean Corpuscular Volume 71.6 fl (80-100); Mean Platelet Volume 8.9 fl (7.4-10.4); Platelet Count Result 211 k/mm3 (150-375); Red Blood Count 3.87 M/mm3 (4.2-5.4); White Blood Count 6.3 K/mm3 (4.5-10.0)
[2023-03-18 06:36] LABS: Alanine Aminotransferase 42 U/L (6-35); Albumin Level 2.9 g/dL (3.5-5.1); Alkaline Phosphatase 89 U/L (38-126); Anion Gap 1 mmol/L (8-16); Aspartate Amino Transferase 34 U/L (14-36); Bilirubin,Total 0.5 mg/dL (0.2-1.3); Blood Urea Nitrogen 23 mg/dL (7-17); Calcium 7.6 mg/dL (8.4-10.2); Carbon Dioxide 37 mmol/L (22-30); Chloride 97 mmol/L (98-107); Estimated CRCL calculation 142 ml/min; Estimated Glomerular Filt Rate > 60; Glucose 90 mg/dL (65-110); Magnesium 2.3 mg/dL (1.6-2.3); Phosphorus 4.3 mg/dL (2.5-4.5); Potassium 3.9 mmol/L (3.4-5.0); Sodium 135 mmol/L (137-145)
[2023-03-18] MEDS: ENOXAPARIN 40 MG/0.4 ML SYRINGE SUB-Q (08:00)
[2023-03-18] MEDS: CENTRAL LINE FLUSH 10 ML IV PUSH ×3 (08:00→20:23)
[2023-03-18] MEDS: TORSEMIDE 20 MG TABLET PO (08:01)
[2023-03-18] MEDS: MONTELUKAST SODIUM 10 MG TABLET PO (08:01)
[2023-03-18] MEDS: PANTOPRAZOLE SODIUM IV 40 MG VIAL IV PUSH (08:01)
[2023-03-18] MEDS: busPIRone HCL 10 MG TABLET PO ×3 (08:01→17:11)
[2023-03-18] MEDS: methylPREDNISolone SOD SUCC 125 MG VIAL 60 MG IV PUSH (08:01)
[2023-03-18] MEDS: DULoxetine HCL 60 MG CAPSULE.DR PO (08:01)
[2023-03-18] MEDS: cefTRIAXone 2 GM/NS 100 ML 2 GM/100 ML BAG IVPB (08:02)
--- NOTE | 2023-03-18 09:42 | WPDINTPN ---
Progress Note: A&P Assessment and Plan (1) Acute and chronic respiratory failure with hypercapnia: Code(s): J96.22 - Acute and chronic respiratory failure with hypercapnia Status: Acute Assessment and Plan: 03/12: Patient presented to the ED with complains of shortness of breath and low pulse oximetry. Upon arrival to the ER patient is O2 sats were 75 blood room air. According the records the patient stated that her insurance recently has change in the medical supply company came and to her BiPAP away. Since then she has had increased sleepiness, and difficulty breathing. Denies any fevers or chills, no chest pain or wheezing, denies any cough. -hypercapnia could be related to obstructive sleep apnea and no BiPAP due to the medical company taking that away since insurance has changed. Asthma exacerbation, obesity hypoventilation syndrome -patient was admitted to the IMU was placed on BiPAP and AVAPS despite which her ABGs showed worsening hypercapnia and patient was intubated during the early hours of 03/13/2023 - 03/17 extubated after a successful weaning trial to NIPPV -continue BiPAP p.r.n. and at night. -resume home dose of torsemide -continue ceftriaxone and azithromycin (03/13) for possible community-acquired pneumonia course. Off vancomycin -continue bronchodilators he and changes and p.r.n. -continue steroids, switch to p.o. prednisone and start taper 03/12/2023 Chest x-ray in the ER did not show any acute cardiopulmonary disease. 03/13/2023 CTA chest was nondiagnostic for pulmonary embolism due to body habitus, will up in upper extremities and suboptimal contrast enhancement of the pulmonary arteries. Diffuse patchy bilateral pulmonary infiltrates and bilateral lower lobe dependent atelectasis. (2) Sepsis: Qualifiers: Sepsis type: sepsis due to unspecified organism Sepsis acute organ dysfunction status: without acute organ dysfunction Qualified Code(s): A41.9 - Sepsis, unspecified organism Code(s): A41.9 - Sepsis, unspecified organism Status: Acute Assessment and Plan: Elevated WBC count, CTA chest showed bilateral patchy pulmonary infiltrates ? pneumonia -03/13 blood cultures -preliminary results are negative x2 -03/13 MRSA screen was POSITIVE -blood pressures remain stable. Procalcitonin level is low. WBC has normalized and she is afebrile -received adequate amount of IV fluids, adequate urine output -will discontinue vancomycin and continue course of azithromycin and Rocephin (3) Asthma: Qualifiers: Asthma complication type: unspecified Asthma persistence: unspecified Asthma severity: unspecified severity Qualified Code(s): J45.909 - Unspecified asthma, uncomplicated Code(s): J45.909 - Unspecified asthma, uncomplicated Status: Acute Assessment and Plan: Continue bronchodilators, steroids and antibiotics as above (4) Community acquired pneumonia: Qualifiers: Laterality: unspecified laterality Qualified Code(s): J18.9 - Pneumonia, unspecified organism Code(s): J18.9 - Pneumonia, unspecified organism Status: Acute Assessment and Plan: His CTA chest with diffuse patchy bilateral pulmonary infiltrates and bilateral lower lobe atelectasis -likely pneumonia -continue antibiotics as above (5) Gastroesophageal reflux disease: Qualifiers: Esophagitis presence: esophagitis presence not specified Qualified Code(s): K21.9 - Gastro-esophageal reflux disease without esophagitis Code(s): K21.9 - Gastro-esophageal reflux disease without esophagitis Status: Acute Assessment and Plan: Continue Protonix (6) Iron deficiency anemia: Qualifiers: Iron deficiency anemia type: unspecified iron deficiency Qualified Code(s): D50.9 - Iron deficiency anemia, unspecified Code(s): D50.9 - Iron deficiency anemia, unspecified Status: Acute Assessment and Plan: Continue
--- NOTE | 2023-03-18 10:39 | PCFNICU ---
ICU Rounding Note: Pt current nutrition is Regular. Nutrition recommendation: continue with current plan of care Last recorded weight is 160 kg. Bowel Motility: no BM recorded at this time Labs Reviewed: Hgb:7.4, HCT:27.7, Alb:2.9, BUN:23 Meds Noted:Lovenox, zofran, protonix Skin: no skin issues noted Additional Notes: Pt started on a regular diet. Intake 100% at this time. Following daily in ICU rounds. Monitoring tube feeding tolerance, medications, plan of care, labs, weights. Reassess in 5 days. .
--- NOTE | 2023-03-18 14:01 | PCRCNOTE ---
PATIENT HAD [facility]IL[facility] UN[facility] AND WAS COMPLIANT, ONCE SHE CHANGED INSURANCE COMPANIES TO [facility], THE TRILOGY WAS NO LONGER COVERED, [facility] PICKED UP THE TRILOGY MACHINE. [facility] STATED THEY LEFT MESSAGE WITH DR OSBORN THAT SHE WILL NEED AN OUTPATIENT PAP STUDY FOR RE-APPROVAL PROCESS WITH [facility]. I HAVE SCANNED IN HER HER THE MOST RECENT TRILOGY ORDER FROM [facility] AND THE MOST RECENT DOWNLOAD OF USAGE AND SETTINGS. SPOKE TO DR SAMUELS, HE STATED ONCE SHE IS OUT OF THE ICU, HE WILL ORDER HER HOME EQUIPMENT. I RELAYED THIS INFO TO SACHIN IN CARE COORD.
--- NOTE | 2023-03-18 17:28 | PC.NURSE ---
This patient, Angie Leos, was transferred to [facility] on 03/18/23 at 1728. Personal belongings sent with patient. Report given to Michelle. Appropriate documentation sent with patient.
--- NOTE | 2023-03-18 18:02 | PM.IMPN ---
Progress Note: A&P Assessment and Plan (1) Acute and chronic respiratory failure with hypercapnia: Code(s): J96.22 - Acute and chronic respiratory failure with hypercapnia Status: Acute Assessment and Plan: Patient presented to the ED with complains of shortness of breath and low pulse oximetry. SpO2 75% RA on arrival. ABG 7.24/83/70 on 3L. CXR on admission was clear. According the records the patient stated that her insurance recently has change and the [employer] company came and took her BiPAP away. Since then she has had increased sleepiness and difficulty breathing but no fevers, chills, chest pain, wheezing or cough. -hypercapnia could be related to untreated GEORGE, asthma exacerbation, obesity hypoventilation syndrome and/or PNA -patient was admitted to the IMU on BiPAP/AVAPS but ABGs worsened and patient was intubated during the early hours of 03/13 -CTA chest was suboptimal but no apparent PE. Patient did well. ABG improved. She was able to be extubated 03/17 -continue ceftriaxone (03/13) for possible community-acquired pneumonia course. Completed azithromycin. Vancomycin stopped -continue bronchodilators -continue steroids and taper -wean O2 as toelrated. Appreciate Pulmonary input (2) Sepsis: Qualifiers: Sepsis type: sepsis due to unspecified organism Sepsis acute organ dysfunction status: without acute organ dysfunction Qualified Code(s): A41.9 - Sepsis, unspecified organism Code(s): A41.9 - Sepsis, unspecified organism Status: Acute Assessment and Plan: Elevated WBC count on admission to 11K. CTA chest showed bilateral patchy pulmonary infiltrates possibly pneumonia -received adequate amount of IV fluids -03/13 blood cultures NGTD -03/13 MRSA screen was POSITIVE -03/16 Sputum pending -blood pressures remain stable. Procalcitonin level is low. WBC has normalized and she is afebrile -continue Rocephin; completed azithromycin (3) Asthma: Qualifiers: Asthma complication type: unspecified Asthma persistence: unspecified Asthma severity: unspecified severity Qualified Code(s): J45.909 - Unspecified asthma, uncomplicated Code(s): J45.909 - Unspecified asthma, uncomplicated Status: Acute Assessment and Plan: Stable. Continue bronchodilators, steroids and antibiotics (4) Community acquired pneumonia: Qualifiers: Laterality: unspecified laterality Qualified Code(s): J18.9 - Pneumonia, unspecified organism Code(s): J18.9 - Pneumonia, unspecified organism Status: Acute Assessment and Plan: As above (5) Gastroesophageal reflux disease: Qualifiers: Esophagitis presence: esophagitis presence not specified Qualified Code(s): K21.9 - Gastro-esophageal reflux disease without esophagitis Code(s): K21.9 - Gastro-esophageal reflux disease without esophagitis Status: Acute Assessment and Plan: Stable. Continue Protonix (6) Iron deficiency anemia: Qualifiers: Iron deficiency anemia type: unspecified iron deficiency Qualified Code(s): D50.9 - Iron deficiency anemia, unspecified Code(s): D50.9 - Iron deficiency anemia, unspecified Status: Acute Assessment and Plan: Hgb 8.5 on admission and running mostly in the 7 range. Known hx of iron deficiency anemia noted in October. Continue ferrous sulfate tablets -continue to monitor CBC, transfuse if hemoglobin < 7.0 (7) Morbid obesity with BMI of 50.0-59.9, adult: Code(s): E66.01 - Morbid (severe) obesity due to excess calories; Z68.43 - Body mass index [BMI] 50.0-59.9, adult Status: Chronic Assessment and Plan: Patient will require lifestyle modification (8) Obstructive sleep apnea: Code(s): G47.33 - Obstructive sleep apnea (adult) (pediatric) Status: Acute Assessment and Plan: Continue AVAPS here at night, with naps and as needed. Care coordination
[2023-03-19] VITALS (22 sets, daily range): BP systolic 97–126; BP diastolic 45–63; PULSE 82–100; RESP 18–32; TEMP 36.4–36.9; O2SAT 93–100
[2023-03-19] MEDS: FLUCONAZOLE 150 MG TABLET 300 MG PO (00:56)
[2023-03-19 04:57] LABS: Hematocrit 27.2 % (37.0-47.0); Hemoglobin 7.4 g/dL (12.0-15.0); Mean Corpuscular HGB Conc 27.2 g/dl (32-36); Mean Corpuscular Volume 69.9 fl (80-100); Mean Platelet Volume 9.3 fl (7.4-10.4); Platelet Count Result 212 k/mm3 (150-375); Red Blood Count 3.89 M/mm3 (4.2-5.4); Red Cell Distribution Width 21.2 % (11.5-14.5); White Blood Count 7.5 K/mm3 (4.5-10.0)
[2023-03-19 05:14] LABS: Alanine Aminotransferase 40 U/L (6-35); Albumin Level 3.1 g/dL (3.5-5.1); Alkaline Phosphatase 88 U/L (38-126); Aspartate Amino Transferase 32 U/L (14-36); Bilirubin,Total 0.5 mg/dL (0.2-1.3); Blood Urea Nitrogen 24 mg/dL (7-17); Calcium 7.8 mg/dL (8.4-10.2); Carbon Dioxide > 40 mmol/L (22-30); Chloride 95 mmol/L (98-107); Estimated CRCL calculation 142 ml/min; Estimated Glomerular Filt Rate > 60; Glucose 89 mg/dL (65-110); Magnesium 2.3 mg/dL (1.6-2.3); Potassium 3.8 mmol/L (3.4-5.0); Sodium 136 mmol/L (137-145)
[2023-03-19] MEDS: CENTRAL LINE FLUSH 10 ML IV PUSH ×3 (06:25→20:46)
[2023-03-19] MEDS: ENOXAPARIN 40 MG/0.4 ML SYRINGE SUB-Q ×2 (08:21→17:55)
[2023-03-19] MEDS: predniSONE 20 MG TABLET 40 MG PO (08:21)
[2023-03-19] MEDS: DULoxetine HCL 60 MG CAPSULE.DR PO (08:21)
[2023-03-19] MEDS: cefTRIAXone 2 GM/NS 100 ML 2 GM/100 ML BAG IVPB (08:21)
[2023-03-19] MEDS: busPIRone HCL 10 MG TABLET PO ×3 (08:21→17:55)
[2023-03-19] MEDS: FERROUS SULFATE 325 MG TABLET DR PO (08:22)
[2023-03-19] MEDS: PANTOPRAZOLE 40 MG TABLET PO (08:22)
[2023-03-19] MEDS: MONTELUKAST SODIUM 10 MG TABLET PO (08:22)
[2023-03-19] MEDS: TORSEMIDE 20 MG TABLET PO (08:22)
--- NOTE | 2023-03-19 09:16 | PM.PNPUL ---
Progress Note: A&P Assessment and Plan (1) Obesity hypoventilation syndrome: Code(s): E66.2 - Morbid (severe) obesity with alveolar hypoventilation Status: Acute (2) Acute and chronic respiratory failure with hypercapnia: Code(s): J96.22 - Acute and chronic respiratory failure with hypercapnia Status: Acute Assessment and Plan: Patient with morbid obesity, known history of obesity hypoventilation, history of difficult to control asthma with multiple exacerbations and treatment with oral steroid bursts over the last 8 years, currently on tezepelumab monthly injections hospitalized treated in the ICU for another episode of acute on chronic hypercapnic respiratory failure. Current episode of hypercapnic respiratory failure most likely precipitated by non-use of BiPAP support for about 7 days prior to this admission. She has been treated for possible asthma exacerbation although she had no symptoms suggestive of asthma exacerbation. She is still on oral steroid tapering dose and received BiPAP support at night. She slept well last night. The patient's chronic respiratory failure is related to obesity hypoventilation. The patient would benefit from noninvasive ventilatory support at home to prevent progression and avoid future hospitalizations. I would recommend resumption of noninvasive ventilator with the AVAPS AA mode. I have discontinued the oral steroids and increased DVT prophylaxis to twice daily. (3) Morbid obesity with BMI of 50.0-59.9, adult: Code(s): E66.01 - Morbid (severe) obesity due to excess calories; Z68.43 - Body mass index [BMI] 50.0-59.9, adult Status: Chronic (4) Asthma: Qualifiers: Asthma complication type: unspecified Asthma persistence: unspecified Asthma severity: unspecified severity Qualified Code(s): J45.909 - Unspecified asthma, uncomplicated Code(s): J45.909 - Unspecified asthma, uncomplicated Status: Acute Subjective Date/time seen: 03/19/23 09:16 Interval history: This patient presented with acute on chronic hypercapnic and hypoxemic respiratory failure. She has long history of asthma on treatment with maintenance bronchodilators and biologicals also history of morbid obesity obstructive sleep apnea. Patient has had multiple hospitalizations for respiratory failure over the last few years. She is followed by Dr. Tim in [place]. She presented with shortness of breath and somnolence. She had discontinued use of BiPAP support at home as her insurance to get away. Patient did not have symptoms such as cough wheezing fever chills hemoptysis or chest pain. She was treated in the intensive care unit with intubation and mechanical ventilation. Initial chest imaging studies showed basal atelectasis with no evidence of consolidations to suggest lower respiratory tract infection. She received steroids for possible asthma exacerbation although she had no symptoms suggestive of asthma flare up and her respiratory mechanics while on the ventilator were not consistent with asthma. Currently the patient is still on oral steroids, antibiotics for possible lower respiratory tract infection, and on BiPAP AVAPS support at night with settings tidal volume 450 rate 20, EPAP 10 FiO2 0.4. Patient slept well on those settings. Currently she has no cough wheezing chest pain. Review of Systems Review of Systems: All systems reviewed & are unremarkable except as noted in HPI and below (HPI and below) Exam Narrative: GENERAL APPEARANCE: Well developed, well nourished, alert and cooperative, morbidly obese and appears to be in no acute distress while on supplemental oxygen via nasal cannula SKIN: Inspection of the skin reveals no rashes, ulcerations or petechiae. HEENT: Sclerae anicteric and conjunctivae pink and moist. Extraocular movements were intact and pupils were equal, round, and reactive to light. The oral mucosa, hard and soft palate, tongue and crayon grader
[2023-03-19] MEDS: ALBUTEROL SULFATE NEB 2.5 MG/3 ML INH INHALATION (14:00)
--- NOTE | 2023-03-19 17:36 | PM.IMPN ---
Progress Note: A&P Assessment and Plan (1) Acute and chronic respiratory failure with hypercapnia: Code(s): J96.22 - Acute and chronic respiratory failure with hypercapnia Status: Acute Assessment and Plan: Patient presented to the ED with complains of shortness of breath and low pulse oximetry. SpO2 75% RA on arrival. ABG 7.24/83/70 on 3L. CXR on admission was clear. According the records the patient stated that her insurance recently has change and the [employer] company came and took her BiPAP away. Since then she has had increased sleepiness and difficulty breathing but no fevers, chills, chest pain, wheezing or cough. -hypercapnia could be related to untreated GEORGE, asthma exacerbation, obesity hypoventilation syndrome and/or PNA -patient was admitted to the IMU on BiPAP/AVAPS but ABGs worsened and patient was intubated during the early hours of 03/13 -CTA chest was suboptimal but no apparent PE. Patient did well. ABG improved. She was able to be extubated 03/17 -continue ceftriaxone (03/13) for possible community-acquired pneumonia course. Completed azithromycin. Vancomycin stopped -continue bronchodilators - steroids stopped -wean O2 as tolerated. -waiting for insurance to approve Trilogy. Appreciate Pulmonary input (2) Sepsis: Qualifiers: Sepsis type: sepsis due to unspecified organism Sepsis acute organ dysfunction status: without acute organ dysfunction Qualified Code(s): A41.9 - Sepsis, unspecified organism Code(s): A41.9 - Sepsis, unspecified organism Status: Acute Assessment and Plan: Elevated WBC count on admission to 11. CTA chest showed bilateral patchy pulmonary infiltrates possibly pneumonia -received adequate amount of IV fluids -03/13 blood cultures NGTD -03/13 MRSA screen was POSITIVE -03/16 Sputum negative -blood pressures remain stable. Procalcitonin level is low. WBC has normalized and she is afebrile -continue Rocephin through today; completed azithromycin (3) Asthma: Qualifiers: Asthma complication type: unspecified Asthma persistence: unspecified Asthma severity: unspecified severity Qualified Code(s): J45.909 - Unspecified asthma, uncomplicated Code(s): J45.909 - Unspecified asthma, uncomplicated Status: Acute Assessment and Plan: Stable. Continue bronchodilators, steroids and antibiotics (4) Community acquired pneumonia: Qualifiers: Laterality: unspecified laterality Qualified Code(s): J18.9 - Pneumonia, unspecified organism Code(s): J18.9 - Pneumonia, unspecified organism Status: Acute Assessment and Plan: As above (5) Gastroesophageal reflux disease: Qualifiers: Esophagitis presence: esophagitis presence not specified Qualified Code(s): K21.9 - Gastro-esophageal reflux disease without esophagitis Code(s): K21.9 - Gastro-esophageal reflux disease without esophagitis Status: Acute Assessment and Plan: Stable. Continue Protonix (6) Iron deficiency anemia: Qualifiers: Iron deficiency anemia type: unspecified iron deficiency Qualified Code(s): D50.9 - Iron deficiency anemia, unspecified Code(s): D50.9 - Iron deficiency anemia, unspecified Status: Acute Assessment and Plan: Hgb 8.5 on admission and running mostly in the 7 range. Known hx of iron deficiency anemia noted in October. Continue ferrous sulfate tablets -continue to monitor CBC, transfuse if hemoglobin < 7.0 (7) Morbid obesity with BMI of 50.0-59.9, adult: Code(s): E66.01 - Morbid (severe) obesity due to excess calories; Z68.43 - Body mass index [BMI] 50.0-59.9, adult Status: Chronic Assessment and Plan: Patient will require lifestyle modification (8) Obstructive sleep apnea: Code(s): G47.33 - Obstructive sleep apnea (adult) (pediatric) Status: Acute Assessment and Plan: Continue AVAPS here at ni
[2023-03-20] VITALS (22 sets, daily range): BP systolic 109–143; BP diastolic 56–85; PULSE 78–103; RESP 16–22; TEMP 35.9–36.6; O2SAT 94–100
[2023-03-20] MEDS: CENTRAL LINE FLUSH 10 ML IV PUSH ×3 (04:57→20:49)
[2023-03-20] MEDS: ALBUTEROL SULFATE NEB 2.5 MG/3 ML INH INHALATION ×3 (05:40→19:55)
[2023-03-20] MEDS: IPRATROPIUM BR 0.02% INH SOLN 0.5 MG/2.5 ML VIAL INHALATION ×3 (05:43→19:55)
[2023-03-20 06:26] LABS: Hematocrit 29.6 % (37.0-47.0); Mean Corpuscular Hemoglobin 19.2 pg (26-34); Mean Platelet Volume 9.3 fl (7.4-10.4); Platelet Count Result 205 k/mm3 (150-375); Red Blood Count 4.17 M/mm3 (4.2-5.4); Red Cell Distribution Width 21.3 % (11.5-14.5); White Blood Count 7.9 K/mm3 (4.5-10.0)
--- NOTE | 2023-03-20 06:26 | PC.NURSE ---
Parents Rosalio and Virginia Sanderson [phone]
[2023-03-20 06:45] LABS: Alanine Aminotransferase 39 U/L (6-35); Albumin Level 3.5 g/dL (3.5-5.1); Alkaline Phosphatase 96 U/L (38-126); Aspartate Amino Transferase 31 U/L (14-36); Bilirubin,Total 0.5 mg/dL (0.2-1.3); Blood Urea Nitrogen 18 mg/dL (7-17); Calcium 7.9 mg/dL (8.4-10.2); Carbon Dioxide > 40 mmol/L (22-30); Chloride 94 mmol/L (98-107); Estimated CRCL calculation 140 ml/min; Estimated Glomerular Filt Rate > 60; Glucose 90 mg/dL (65-110); Sodium 137 mmol/L (137-145)
[2023-03-20] MEDS: ENOXAPARIN 40 MG/0.4 ML SYRINGE SUB-Q ×2 (09:10→16:16)
[2023-03-20] MEDS: MONTELUKAST SODIUM 10 MG TABLET PO (09:10)
[2023-03-20] MEDS: DULoxetine HCL 60 MG CAPSULE.DR PO (09:10)
[2023-03-20] MEDS: PANTOPRAZOLE 40 MG TABLET PO (09:11)
[2023-03-20] MEDS: busPIRone HCL 10 MG TABLET PO ×3 (09:11→16:16)
[2023-03-20] MEDS: TORSEMIDE 20 MG TABLET PO (09:11)
--- NOTE | 2023-03-20 14:22 | PM.IMPN ---
Progress Note: A&P Assessment and Plan (1) Acute and chronic respiratory failure with hypercapnia: Code(s): J96.22 - Acute and chronic respiratory failure with hypercapnia Status: Acute Assessment and Plan: Patient presented to the ED with complains of shortness of breath and low pulse oximetry. SpO2 75% RA on arrival. ABG 7.24/83/70 on 3L. CXR on admission was clear. According the records the patient stated that her insurance recently has change and the [employer] came and took her BiPAP away. Since then she has had increased sleepiness and difficulty breathing but no fevers, chills, chest pain, wheezing or cough. -hypercapnia could be related to untreated GEORGE, asthma exacerbation, obesity hypoventilation syndrome and/or PNA -patient was admitted to the IMU on BiPAP/AVAPS but ABGs worsened and patient was intubated during the early hours of 03/13 -CTA chest was suboptimal but no apparent PE. Patient did well. ABG improved. She was able to be extubated 03/17 -completed ceftriaxone and azithromycin for possible community-acquired pneumonia course -continue bronchodilators - steroids stopped -wean O2 as tolerated. -waiting for insurance to approve Trilogy. Appreciate Pulmonary input (2) Sepsis: Qualifiers: Sepsis type: sepsis due to unspecified organism Sepsis acute organ dysfunction status: without acute organ dysfunction Qualified Code(s): A41.9 - Sepsis, unspecified organism Code(s): A41.9 - Sepsis, unspecified organism Status: Acute Assessment and Plan: Elevated WBC count on admission to 11K. CTA chest showed bilateral patchy pulmonary infiltrates possibly pneumonia -received adequate amount of IV fluids -03/13 blood cultures NGTD -03/13 MRSA screen was POSITIVE -03/16 Sputum negative -blood pressures remain stable. Procalcitonin level is low. WBC has normalized and she is afebrile -she completed abx course (3) Asthma: Qualifiers: Asthma complication type: unspecified Asthma persistence: unspecified Asthma severity: unspecified severity Qualified Code(s): J45.909 - Unspecified asthma, uncomplicated Code(s): J45.909 - Unspecified asthma, uncomplicated Status: Acute Assessment and Plan: Stable. Continue bronchodilators, steroids and antibiotics Add back inhalers. (4) Community acquired pneumonia: Qualifiers: Laterality: unspecified laterality Qualified Code(s): J18.9 - Pneumonia, unspecified organism Code(s): J18.9 - Pneumonia, unspecified organism Status: Acute Assessment and Plan: As above (5) Gastroesophageal reflux disease: Qualifiers: Esophagitis presence: esophagitis presence not specified Qualified Code(s): K21.9 - Gastro-esophageal reflux disease without esophagitis Code(s): K21.9 - Gastro-esophageal reflux disease without esophagitis Status: Acute Assessment and Plan: Stable. Continue Protonix (6) Iron deficiency anemia: Qualifiers: Iron deficiency anemia type: unspecified iron deficiency Qualified Code(s): D50.9 - Iron deficiency anemia, unspecified Code(s): D50.9 - Iron deficiency anemia, unspecified Status: Acute Assessment and Plan: Hgb 8.5 on admission and running mostly in the 7-8 range. Known hx of iron deficiency anemia noted in October. Continue ferrous sulfate tablets and increase frequency -continue to monitor CBC, transfuse if hemoglobin < 7.0 (7) Morbid obesity with BMI of 50.0-59.9, adult: Code(s): E66.01 - Morbid (severe) obesity due to excess calories; Z68.43 - Body mass index [BMI] 50.0-59.9, adult Status: Chronic Assessment and Plan: Patient will require lifestyle modification (8) Obstructive sleep apnea: Code(s): G47.33 - Obstructive sleep apnea (adult) (pediatric) Status: Acute Assessment and Plan: Continue BiPAP/AVAPS here at night, with na
[2023-03-20] MEDS: FERROUS SULFATE 325 MG TABLET DR PO (16:16)
[2023-03-20] MEDS: LORATADINE 10 MG TABLET PO (16:16)
--- NOTE | 2023-03-20 17:05 | PC.NURSE ---
This patient, Angie Leos, was transferred to [252 ] on 03/20/23 at 1700. Personal belongings sent with patient. Report given to [ Marjan ROB]. Appropriate documentation sent with patient.
--- NOTE | 2023-03-20 17:26 | PC.NURSE ---
Patient transferred to room 252 from 200. Patient oriented to new room, and resting comfortably.
[2023-03-20] MEDS: FLUTICASONE/SALMETEROL 115-21 MCG INHALER 1 PUFF 2 PUFF INHALATION (20:03)
[2023-03-20] MEDS: ACETAMINOPHEN 325 MG TABLET 650 MG PO (20:52)
[2023-03-21] VITALS (8 sets, daily range): BP systolic 102–144; BP diastolic 50–72; PULSE 80–91; RESP 18–20; TEMP 36.1–37.3; O2SAT 94–100
[2023-03-21 06:13] LABS: Hematocrit 27.8 % (37.0-47.0); Hemoglobin 7.5 g/dL (12.0-15.0); Mean Corpuscular Volume 70.6 fl (80-100); Platelet Count Result 199 k/mm3 (150-375); Red Blood Count 3.94 M/mm3 (4.2-5.4); Red Cell Distribution Width 21.2 % (11.5-14.5); White Blood Count 5.3 K/mm3 (4.5-10.0)
[2023-03-21] MEDS: CENTRAL LINE FLUSH 10 ML IV PUSH ×3 (06:50→21:38)
[2023-03-21] MEDS: ENOXAPARIN 40 MG/0.4 ML SYRINGE SUB-Q ×2 (08:33→17:54)
[2023-03-21] MEDS: LORATADINE 10 MG TABLET PO (08:33)
[2023-03-21] MEDS: TORSEMIDE 20 MG TABLET PO (08:34)
[2023-03-21] MEDS: PANTOPRAZOLE 40 MG TABLET PO (08:34)
[2023-03-21] MEDS: busPIRone HCL 10 MG TABLET PO ×3 (08:34→17:54)
[2023-03-21] MEDS: FERROUS SULFATE 325 MG TABLET DR PO (08:34)
[2023-03-21] MEDS: MONTELUKAST SODIUM 10 MG TABLET PO (08:34)
[2023-03-21] MEDS: DULoxetine HCL 60 MG CAPSULE.DR PO (08:34)
[2023-03-21] MEDS: ALBUTEROL SULFATE NEB 2.5 MG/3 ML INH INHALATION (08:54)
[2023-03-21] MEDS: FLUTICASONE/SALMETEROL 115-21 MCG INHALER 1 PUFF 2 PUFF INHALATION (08:54)
[2023-03-21] MEDS: IPRATROPIUM BR 0.02% INH SOLN 0.5 MG/2.5 ML VIAL INHALATION (08:54)
--- NOTE | 2023-03-21 09:32 | PM.IMPN ---
Progress Note: A&P Assessment and Plan (1) Acute and chronic respiratory failure with hypercapnia: Code(s): J96.22 - Acute and chronic respiratory failure with hypercapnia Status: Acute Assessment and Plan: Patient presented to the ED with complains of shortness of breath and low pulse oximetry. SpO2 75% RA on arrival. ABG 7.24/83/70 on 3L. CXR on admission was clear. According the records the patient stated that her insurance recently has change and the [employer] came and took her BiPAP away. Since then she has had increased sleepiness and difficulty breathing but no fevers, chills, chest pain, wheezing or cough. -hypercapnia could be related to untreated GEORGE, asthma exacerbation, obesity hypoventilation syndrome and/or PNA -patient was admitted to the IMU on BiPAP/AVAPS but ABGs worsened and patient was intubated during the early hours of 03/13 -CTA chest was suboptimal but no apparent PE. Patient did well. ABG improved. She was able to be extubated 03/17 -completed ceftriaxone and azithromycin for community-acquired pneumonia -continue bronchodilators - steroids stopped -wean O2 as tolerated. -waiting for insurance to approve Trilogy. Appreciate Pulmonary input -suspect her increasing muscle aches are related to her increased activity level. Will check ABG to ensure this is not related to CO2 retention. (2) Sepsis: Qualifiers: Sepsis type: sepsis due to unspecified organism Sepsis acute organ dysfunction status: without acute organ dysfunction Qualified Code(s): A41.9 - Sepsis, unspecified organism Code(s): A41.9 - Sepsis, unspecified organism Status: Acute Assessment and Plan: Elevated WBC count on admission to [facility]. CTA chest showed bilateral patchy pulmonary infiltrates possibly pneumonia -received adequate amount of IV fluids -03/13 blood cultures NGTD -03/13 MRSA screen was POSITIVE -03/16 Sputum negative -blood pressures remain stable. Procalcitonin level is low. WBC has normalized and she is afebrile -she completed abx course. Sepsis resolved (3) Asthma: Qualifiers: Asthma complication type: unspecified Asthma persistence: unspecified Asthma severity: unspecified severity Qualified Code(s): J45.909 - Unspecified asthma, uncomplicated Code(s): J45.909 - Unspecified asthma, uncomplicated Status: Acute Assessment and Plan: Stable. Continue bronchodilators, steroids and antibiotics Continue inhalers (4) Community acquired pneumonia: Qualifiers: Laterality: unspecified laterality Qualified Code(s): J18.9 - Pneumonia, unspecified organism Code(s): J18.9 - Pneumonia, unspecified organism Status: Acute Assessment and Plan: As above (5) Gastroesophageal reflux disease: Qualifiers: Esophagitis presence: esophagitis presence not specified Qualified Code(s): K21.9 - Gastro-esophageal reflux disease without esophagitis Code(s): K21.9 - Gastro-esophageal reflux disease without esophagitis Status: Acute Assessment and Plan: Stable. Continue Protonix (6) Iron deficiency anemia: Qualifiers: Iron deficiency anemia type: unspecified iron deficiency Qualified Code(s): D50.9 - Iron deficiency anemia, unspecified Code(s): D50.9 - Iron deficiency anemia, unspecified Status: Acute Assessment and Plan: Hgb 8.5 on admission and running mostly in the 7-8 range. Known hx of iron deficiency anemia noted in October. Continue ferrous sulfate tablets -continue to monitor CBC, transfuse if hemoglobin < 7.0 (7) Morbid obesity with BMI of 50.0-59.9, adult: Code(s): E66.01 - Morbid (severe) obesity due to excess calories; Z68.43 - Body mass index [BMI] 50.0-59.9, adult Status: Chronic Assessment and Plan: Patient will require lifestyle modification (8) Obstructive sleep apnea: Code(s): G47.33 - Obstructive s
[2023-03-21 11:05] LABS: Alveolar/Arterial O2 Gradient 77.3 mmHg; Base Excess ABG 9.1 mEq/l (+/-2.0); Fractional Inspired Oxygen 28 %; HCO3 ABG 34.4 mEq/l (22.0-26.0); Oxygen Content ABG 11.7 %vol (16.0-22.0); Oxyhemoglobin 90.3 % THb (90.0-100.0); PCO2 ABG 51.7 mmHg (35.0-45.0); PO2 ABG 61.3 mmHg (80.0-100.0); PO2 FiO2 Ratio Arterial Blood 2.19 %; Total Hemoglobin 9.2 g/dL (12.0-18.0); pH ABG 7.441 (7.350-7.450)
[2023-03-21 11:13] LABS: Device NASAL CANNULA; Modified Allen's Test Pass; Site Drawn RIGHT RADIAL
[2023-03-21] MEDS: ACETAMINOPHEN 325 MG TABLET 650 MG PO (12:43)
[2023-03-22] VITALS (13 sets, daily range): BP systolic 100–131; BP diastolic 42–77; PULSE 78–99; RESP 16–20; TEMP 36.1–36.7; O2SAT 90–99
[2023-03-22] MEDS: ENOXAPARIN 40 MG/0.4 ML SYRINGE SUB-Q ×2 (08:16→16:54)
[2023-03-22] MEDS: MONTELUKAST SODIUM 10 MG TABLET PO (08:16)
[2023-03-22] MEDS: LORATADINE 10 MG TABLET PO (08:16)
[2023-03-22] MEDS: DULoxetine HCL 60 MG CAPSULE.DR PO (08:17)
[2023-03-22] MEDS: TORSEMIDE 20 MG TABLET PO (08:17)
[2023-03-22] MEDS: PANTOPRAZOLE 40 MG TABLET PO (08:17)
[2023-03-22] MEDS: busPIRone HCL 10 MG TABLET PO ×3 (08:17→16:54)
[2023-03-22] MEDS: FERROUS SULFATE 325 MG TABLET DR PO (08:18)
[2023-03-22] MEDS: FLUTICASONE/SALMETEROL 115-21 MCG INHALER 1 PUFF 2 PUFF INHALATION ×2 (09:04→21:40)
[2023-03-22] MEDS: CENTRAL LINE FLUSH 10 ML IV PUSH ×2 (13:11→20:43)
--- NOTE | 2023-03-22 14:37 | PC.NURSE ---
Physical assessment by Student Nurse Nesha Bah/[facility] reviewed. Agree with same. Any procedures, care or medications that were given by student nurse were completed under direct supervision of this instructor or assigned staff nurse
--- NOTE | 2023-03-22 15:19 | PM.PNPUL ---
Progress Note: A&P Assessment and Plan (1) Obesity hypoventilation syndrome: Code(s): E66.2 - Morbid (severe) obesity with alveolar hypoventilation Status: Acute (2) Acute and chronic respiratory failure with hypercapnia: Code(s): J96.22 - Acute and chronic respiratory failure with hypercapnia Status: Acute Assessment and Plan: Patient with morbid obesity, known history of obesity hypoventilation, history of difficult to control asthma with multiple exacerbations and treatment with oral steroid bursts over the last 8 years, currently on tezepelumab monthly injections hospitalized treated in the ICU for another episode of acute on chronic hypercapnic respiratory failure. Current episode of hypercapnic respiratory failure most likely precipitated by non-use of BiPAP support for about 7 days prior to this admission. She has been treated for possible asthma exacerbation although she had no symptoms suggestive of asthma exacerbation. She is still on oral steroid tapering dose and received BiPAP support at night. She slept well last night. The patient's chronic respiratory failure is related to obesity hypoventilation. Patient's physical exam showed no evidence of wheezing. Current hospitalization was precipitated by hypercapnic respiratory failure acute on chronic hypercapnic respiratory failure related to lack of ventilatory support at home as patient's BiPAP was taken away. There was no evidence of asthma exacerbation during this hospitalization. Patient has improved with BiPAP support at night. Still trying to get approval for home ventilatory use. To this end will transfer the patient to IMU, and monitor patient on just supplemental oxygen at 2 liters/minute. ApneaLink on 2 liters/minute to night and ABGs tomorrow morning. (3) Morbid obesity with BMI of 50.0-59.9, adult: Code(s): E66.01 - Morbid (severe) obesity due to excess calories; Z68.43 - Body mass index [BMI] 50.0-59.9, adult Status: Chronic (4) Asthma: Qualifiers: Asthma complication type: unspecified Asthma persistence: unspecified Asthma severity: unspecified severity Qualified Code(s): J45.909 - Unspecified asthma, uncomplicated Code(s): J45.909 - Unspecified asthma, uncomplicated Status: Acute Subjective Date/time seen: 03/22/23 15:19 Interval history: Patient has no new respiratory symptoms. Overall she feels better. Using BiPAP support last night, supplemental oxygen during the day. No lower extremity edema. Review of Systems Review of Systems: All systems reviewed & are unremarkable except as noted in HPI and below (HPI and below) Exam Narrative: GENERAL APPEARANCE: Well developed, well nourished, alert and cooperative, morbidly obese and appears to be in no acute distress while on supplemental oxygen via nasal cannula SKIN: Inspection of the skin reveals no rashes, ulcerations or petechiae. HEENT: Sclerae anicteric and conjunctivae pink and moist. Extraocular movements were intact and pupils were equal, round, and reactive to light. The oral mucosa, hard and soft palate, tongue and posterior pharynx were normal. NECK: Supple. There was no thyroid enlargement, and no tenderness, or masses were felt. CHEST: Normal AP diameter and normal contour without any kyphoscoliosis. LUNGS: Auscultation of the lungs revealed normal breath sounds without any other adventitious sounds or rubs. CARDIAC: There was a regular rate and rhythm without any murmurs, gallops, rubs. ABDOMEN: Soft and nontender with normal bowel sounds. There was no organomegaly. Diminished abdominal excursion in supine position but no clear-cut abdominal paradox LYMPH NODES: No lymphadenopathy was appreciated in the neck. EXTREMITIES: No cyanosis, clubbing or edema. NEUROLOGIC: Alert and oriented x 3. Normal affect. Objective Data Vital Signs Vital Signs: Vital Signs - 24 hr 03/21/23 16:30 03/21/23 21:08 03/21/23 21:38 [place]
--- NOTE | 2023-03-22 15:29 | PCRCNOTE ---
UPDATE FROM NEENA, [facility]. WILL ATTEMPT TO GET APPROVAL FOR BIPAP AVAPS OR BIPAP WITH RATE. PT HAS HER O2 AT 2 L WITH [facility] ACCORDING TO PAST NOTE. FOR BIPAP APPROVAL WE WILL COMPLETE OVERNIGHT OXIMETRY (APNEA LINK) ON CURRENT HOME O2 SETTINGS, 2L. ALSO OBTAINING ABG IN AM. ONCE COMPLETED, NEENA WILL SUBMIT NEW ORDER FOR BIPAP WITH SUPPORTED DOCUMENTATION AND AWAIT APPROVAL.
--- NOTE | 2023-03-22 15:34 | PM.IMPN ---
Progress Note: A&P Assessment and Plan (1) Acute and chronic respiratory failure with hypercapnia: Code(s): J96.22 - Acute and chronic respiratory failure with hypercapnia Status: Acute Assessment and Plan: Patient presented to the ED with complains of shortness of breath and low pulse oximetry. SpO2 75% RA on arrival. ABG 7.24/83/70 on 3L. CXR on admission was clear. According the records the patient stated that her insurance recently has change and the [employer] company came and took her BiPAP away. Since then she has had increased sleepiness and difficulty breathing but no fevers, chills, chest pain, wheezing or cough. -hypercapnia could be related to untreated GEORGE, asthma exacerbation, obesity hypoventilation syndrome and/or PNA -patient was admitted to the IMU on BiPAP/AVAPS but ABGs worsened and patient was intubated during the early hours of 03/13 -CTA chest was suboptimal but no apparent PE. Patient did well. ABG improved. She was able to be extubated 03/17 -completed ceftriaxone and azithromycin for community-acquired pneumonia -continue bronchodilators -steroids stopped -wean O2 as tolerated. -suspect her increasing muscle aches are related to her increased activity level and this is better -waiting for insurance to approve Trilogy. Appreciate Pulmonary input. Will need to do an ApneaLink on 2 L with ABG in the morning per Pulmonary so patient can qualify for BiPAP. Will perform that test tonight. (2) Sepsis: Qualifiers: Sepsis type: sepsis due to unspecified organism Sepsis acute organ dysfunction status: without acute organ dysfunction Qualified Code(s): A41.9 - Sepsis, unspecified organism Code(s): A41.9 - Sepsis, unspecified organism Status: Acute Assessment and Plan: Elevated WBC count on admission to 11K. CTA chest showed bilateral patchy pulmonary infiltrates possibly pneumonia -received adequate amount of IV fluids -03/13 blood cultures NGTD -03/13 MRSA screen was POSITIVE -03/16 Sputum negative -blood pressures remain stable. Procalcitonin level is low. WBC has normalized and she is afebrile -she completed abx course. Sepsis resolved (3) Asthma: Qualifiers: Asthma complication type: unspecified Asthma persistence: unspecified Asthma severity: unspecified severity Qualified Code(s): J45.909 - Unspecified asthma, uncomplicated Code(s): J45.909 - Unspecified asthma, uncomplicated Status: Acute Assessment and Plan: Stable. Continue bronchodilators, steroids and antibiotics Continue inhalers (4) Community acquired pneumonia: Qualifiers: Laterality: unspecified laterality Qualified Code(s): J18.9 - Pneumonia, unspecified organism Code(s): J18.9 - Pneumonia, unspecified organism Status: Acute Assessment and Plan: As above (5) Gastroesophageal reflux disease: Qualifiers: Esophagitis presence: esophagitis presence not specified Qualified Code(s): K21.9 - Gastro-esophageal reflux disease without esophagitis Code(s): K21.9 - Gastro-esophageal reflux disease without esophagitis Status: Acute Assessment and Plan: Stable. Continue Protonix (6) Iron deficiency anemia: Qualifiers: Iron deficiency anemia type: unspecified iron deficiency Qualified Code(s): D50.9 - Iron deficiency anemia, unspecified Code(s): D50.9 - Iron deficiency anemia, unspecified Status: Acute Assessment and Plan: Hgb 8.5 on admission and running mostly in the 7-8 range. Known hx of iron deficiency anemia noted in October. Continue ferrous sulfate tablets -continue to monitor CBC, transfuse if hemoglobin < 7.0 (7) Morbid obesity with BMI of 50.0-59.9, adult: Code(s): E66.01 - Morbid (severe) obesity due to excess calories; Z68.43 - Body mass index [BMI] 50.0-59.9, adult Status: Chronic Assessment and Plan: Patient will require l
[2023-03-22] MEDS: ACETAMINOPHEN 325 MG TABLET 650 MG PO (20:47)
[2023-03-23] VITALS (10 sets, daily range): BP systolic 99–130; BP diastolic 51–65; PULSE 79–94; RESP 16–20; TEMP 36.4–36.8; O2SAT 92–100
[2023-03-23] MEDS: CENTRAL LINE FLUSH 10 ML IV PUSH ×3 (05:55→21:51)
[2023-03-23 06:07] LABS: Alveolar/Arterial O2 Gradient 63.6 mmHg; Base Excess ABG 8.4 mEq/l (+/-2.0); Fractional Inspired Oxygen 28 %; HCO3 ABG 34.6 mEq/l (22.0-26.0); Oxygen Content ABG 12.1 %vol (16.0-22.0); Oxygen Saturation ABG 92.8 % (95.0-100.0); Oxyhemoglobin 91.1 % THb (90.0-100.0); PCO2 ABG 58.2 mmHg (35.0-45.0); PO2 ABG 67.4 mmHg (80.0-100.0); PO2 FiO2 Ratio Arterial Blood 2.41 %; Total Hemoglobin 9.4 g/dL (12.0-18.0); pH ABG 7.392 (7.350-7.450)
[2023-03-23 06:08] LABS: Device NASAL CANNULA; Modified Allen's Test Pass; Site Drawn RIGHT RADIAL
[2023-03-23 06:25] LABS: Hematocrit 29.3 % (37.0-47.0); Mean Corpuscular HGB Conc 27.3 g/dl (32-36); Mean Corpuscular Hemoglobin 19.3 pg (26-34); Mean Corpuscular Volume 70.6 fl (80-100); Mean Platelet Volume 9.5 fl (7.4-10.4); Platelet Count Result 239 k/mm3 (150-375); Red Blood Count 4.15 M/mm3 (4.2-5.4); Red Cell Distribution Width 22.2 % (11.5-14.5); White Blood Count 4.4 K/mm3 (4.5-10.0)
--- NOTE | 2023-03-23 06:27 | PCRCNOTE ---
Apnea link got turned off early in the night, stated it only had 1 hr of info. RT did not process it. RT will reattempt tonight.
[2023-03-23 06:40] LABS: Blood Urea Nitrogen 11 mg/dL (7-17); Carbon Dioxide > 40 mmol/L (22-30); Chloride 97 mmol/L (98-107); Estimated CRCL calculation 135 ml/min; Estimated Glomerular Filt Rate > 60; Glucose 97 mg/dL (65-110); Potassium 3.9 mmol/L (3.4-5.0); Sodium 137 mmol/L (137-145)
[2023-03-23] MEDS: FLUTICASONE/SALMETEROL 115-21 MCG INHALER 1 PUFF 2 PUFF INHALATION ×2 (08:04→19:49)
[2023-03-23] MEDS: DULoxetine HCL 60 MG CAPSULE.DR PO (09:11)
[2023-03-23] MEDS: FERROUS SULFATE 325 MG TABLET DR PO ×2 (09:11→17:26)
[2023-03-23] MEDS: LORATADINE 10 MG TABLET PO (09:11)
[2023-03-23] MEDS: MONTELUKAST SODIUM 10 MG TABLET PO (09:11)
[2023-03-23] MEDS: PANTOPRAZOLE 40 MG TABLET PO (09:12)
[2023-03-23] MEDS: ENOXAPARIN 40 MG/0.4 ML SYRINGE SUB-Q ×2 (09:12→17:26)
[2023-03-23] MEDS: TORSEMIDE 20 MG TABLET PO (09:12)
[2023-03-23] MEDS: busPIRone HCL 10 MG TABLET PO ×3 (09:12→17:26)
--- NOTE | 2023-03-23 11:02 | PCNFU ---
Nutrition Follow-Up Complete: Increased protein energy needs related to mechanical ventilation, as evidenced by need for full tube feeding, predictive equations. Goal: Meet estimated protein energy needs patient is meeting goal. No new goal. Pt current nutrition is Regular. Last recorded weight is 148.4 kg Bowel Motility:+Bm reported 03/22 Labs Reviewed:Cr 0.6,Hct 29.3,Hgb 8.0 Meds Noted:Lovenox, Cymbalta, Protonix. Skin:WNL Additional Notes: Patient remains on a regular diet, tolerating 100% intake reported. No further nutritional needs. Monitoring weight, labs, oral intake, skin every 7 days.
--- NOTE | 2023-03-23 12:32 | PM.PNPUL ---
Progress Note: A&P Assessment and Plan (1) Obesity hypoventilation syndrome: Code(s): E66.2 - Morbid (severe) obesity with alveolar hypoventilation Status: Acute (2) Acute and chronic respiratory failure with hypercapnia: Code(s): J96.22 - Acute and chronic respiratory failure with hypercapnia Status: Acute Assessment and Plan: Patient with morbid obesity, known history of obesity hypoventilation, history of difficult to control asthma with multiple exacerbations and treatment with oral steroid bursts over the last 8 years, currently on tezepelumab monthly injections hospitalized treated in the ICU for another episode of acute on chronic hypercapnic respiratory failure. Current episode of hypercapnic respiratory failure most likely precipitated by non-use of BiPAP support for about 7 days prior to this admission. She has been treated for possible asthma exacerbation although she had no symptoms suggestive of asthma exacerbation. She is still on oral steroid tapering dose and received BiPAP support at night. She slept well last night. The patient's chronic respiratory failure is related to obesity hypoventilation. Patient's physical exam showed no evidence of wheezing. Current hospitalization was precipitated by hypercapnic respiratory failure acute on chronic hypercapnic respiratory failure related to lack of ventilatory support at home as patient's BiPAP was taken away. There was no evidence of asthma exacerbation during this hospitalization. Patient has improved with BiPAP support at night. Still trying to get approval for home ventilatory use. Last night patient received just supplemental oxygen and no BiPAP support. Arterial blood gases this a.m. showed worsening hypercapnia, again confirming the necessity of home ventilatory support to to avoid hypercapnic narcosis and new hospitalization when patient is discharged. Plan: Will reorder nocturnal oximetry on just supplemental oxygen for tonight. (3) Morbid obesity with BMI of 50.0-59.9, adult: Code(s): E66.01 - Morbid (severe) obesity due to excess calories; Z68.43 - Body mass index [BMI] 50.0-59.9, adult Status: Chronic (4) Asthma: Qualifiers: Asthma complication type: unspecified Asthma persistence: unspecified Asthma severity: unspecified severity Qualified Code(s): J45.909 - Unspecified asthma, uncomplicated Code(s): J45.909 - Unspecified asthma, uncomplicated Status: Acute Subjective Date/time seen: 03/23/23 12:32 Interval history: Patient has no new respiratory symptoms. She remains on supplemental oxygen via nasal cannula. Overnight oximetry on just supplemental oxygen attempted last night but unsuccessfully. She had blood gases this a.m. while off nocturnal BiPAP Review of Systems Review of Systems: All systems reviewed & are unremarkable except as noted in HPI and below (HPI) Exam Narrative: GENERAL APPEARANCE: Well developed, well nourished, alert and cooperative, morbidly obese and appears to be in no acute distress while on supplemental oxygen via nasal cannula SKIN: Inspection of the skin reveals no rashes, ulcerations or petechiae. HEENT: Sclerae anicteric and conjunctivae pink and moist. Extraocular movements were intact and pupils were equal, round, and reactive to light. The oral mucosa, hard and soft palate, tongue and posterior pharynx were normal. NECK: Supple. There was no thyroid enlargement, and no tenderness, or masses were felt. CHEST: Normal AP diameter and normal contour without any kyphoscoliosis. LUNGS: Auscultation of the lungs revealed normal breath sounds without any other adventitious sounds or rubs. CARDIAC: There was a regular rate and rhythm without any murmurs, gallops, rubs. ABDOMEN: Soft and nontender with normal bowel sounds. There was no organomegaly. Diminished abdominal excursion in supine position but no clear-cut abdominal paradox LYMPH NODES: No lymphadenopathy wa
--- NOTE | 2023-03-23 15:19 | PC.NURSE ---
On 03/23/23, the student, [Maria L Vasquez], provided care and completed [facility] documentation on this patient. I have reviewed the student's documentation and agree with the findings.
--- NOTE | 2023-03-23 17:01 | PM.IMPN ---
Progress Note: A&P Assessment and Plan (1) Acute and chronic respiratory failure with hypercapnia: Code(s): J96.22 - Acute and chronic respiratory failure with hypercapnia Status: Acute Assessment and Plan: Patient presented to the ED with complains of shortness of breath and low pulse oximetry. SpO2 75% RA on arrival. ABG 7.24/83/70 on 3L. CXR on admission was clear. According the records the patient stated that her insurance recently has change and the [employer] company came and took her BiPAP away. Since then she has had increased sleepiness and difficulty breathing but no fevers, chills, chest pain, wheezing or cough. -hypercapnia could be related to untreated GEORGE, asthma exacerbation, obesity hypoventilation syndrome and/or PNA -patient was admitted to the IMU on BiPAP/AVAPS but ABGs worsened and patient was intubated during the early hours of 03/13 -CTA chest was suboptimal but no apparent PE. Patient did well. ABG improved. She was able to be extubated 03/17 -completed ceftriaxone and azithromycin for community-acquired pneumonia -continue bronchodilators -steroids stopped -wean O2 as tolerated. -suspect her increasing muscle aches are related to her increased activity level and this is better -waiting for insurance to approve Trilogy. Appreciate Pulmonary input. We need to do ApneaLink last night so this was ordered. Unfortunately, the ApneaLink was turned off early in the night so was inaccurate. ABG this mornin.39//67 Plan to repeat ApneaLink on 2 L with ABG in the morning so patient can qualify for BiPAP. Will perform that test tonight. (2) Sepsis: Qualifiers: Sepsis acute organ dysfunction status: without acute organ dysfunction Sepsis type: sepsis due to unspecified organism Qualified Code(s): A41.9 - Sepsis, unspecified organism Code(s): A41.9 - Sepsis, unspecified organism Status: Acute Assessment and Plan: Elevated WBC count on admission to 11. CTA chest showed bilateral patchy pulmonary infiltrates possibly pneumonia -received adequate amount of IV fluids -03/13 blood cultures NGTD -03/13 MRSA screen was POSITIVE -03/16 Sputum negative -blood pressures remain stable. Procalcitonin level is low. WBC has normalized and she is afebrile -she completed abx course. Sepsis resolved (3) Asthma: Qualifiers: Asthma complication type: unspecified Asthma persistence: unspecified Asthma severity: unspecified severity Qualified Code(s): J45.909 - Unspecified asthma, uncomplicated Code(s): J45.909 - Unspecified asthma, uncomplicated Status: Acute Assessment and Plan: Stable. Continue bronchodilators, steroids and antibiotics Continue inhalers (4) Community acquired pneumonia: Qualifiers: Laterality: unspecified laterality Qualified Code(s): J18.9 - Pneumonia, unspecified organism Code(s): J18.9 - Pneumonia, unspecified organism Status: Acute Assessment and Plan: As above (5) Gastroesophageal reflux disease: Qualifiers: Esophagitis presence: esophagitis presence not specified Qualified Code(s): K21.9 - Gastro-esophageal reflux disease without esophagitis Code(s): K21.9 - Gastro-esophageal reflux disease without esophagitis Status: Acute Assessment and Plan: Stable. Continue Protonix (6) Iron deficiency anemia: Qualifiers: Iron deficiency anemia type: unspecified iron deficiency Qualified Code(s): D50.9 - Iron deficiency anemia, unspecified Code(s): D50.9 - Iron deficiency anemia, unspecified Status: Acute Assessment and Plan: Hgb 8.5 on admission and running mostly in the 7-8 range. Known hx of iron deficiency anemia noted in October. Continue ferrous sulfate tablets She was supposed to follow-up with the GI doctor for colonoscopy but had a canceled the appointment. Encouraged her to contact the GI doctor and reschedule
[2023-03-23] MEDS: MELATONIN 5 MG TABLET PO (21:50)
[2023-03-24 05:09] LABS: Alveolar/Arterial O2 Gradient 57.5 mmHg; Base Excess ABG 7.9 mEq/l (+/-2.0); Carboxyhemoglobin 0.3 % THb (0-2.0); Fractional Inspired Oxygen 28 %; Methemoglobin ABG 0.4 %THb (0-1.5); Oxygen Content ABG 12.2 %vol (16.0-22.0); Oxygen Saturation ABG 91.3 % (95.0-100.0); Oxyhemoglobin 90.1 % THb (90.0-100.0); PO2 ABG 65.7 mmHg (80.0-100.0); PO2 FiO2 Ratio Arterial Blood 2.35 %; Reduced Hemoglobin 9.2 %THb (0-5.0); Total Hemoglobin 9.6 g/dL (12.0-18.0)
[2023-03-24 05:11] VITALS: BP 126/57; PULSE 82; RESP 18; TEMP 36.5; O2SAT 95
[2023-03-24 05:12] LABS: Device NASAL CANNULA; Modified Allen's Test Pass; PCO2 ABG 64.8 mmHg (35.0-45.0); Site Drawn RIGHT RADIAL
[2023-03-24] MEDS: CENTRAL LINE FLUSH 10 ML IV PUSH ×2 (06:01→13:00)
[2023-03-24 06:55] VITALS: PULSE 81; RESP 18; O2SAT 93
[2023-03-24] MEDS: FLUTICASONE/SALMETEROL 115-21 MCG INHALER 1 PUFF 2 PUFF INHALATION (06:55)
--- NOTE | 2023-03-24 08:25 | PM.IMPN ---
Progress Note: A&P Assessment and Plan (1) Acute and chronic respiratory failure with hypercapnia: Code(s): J96.22 - Acute and chronic respiratory failure with hypercapnia Status: Acute Assessment and Plan: Patient presented to the ED with complains of shortness of breath and low pulse oximetry. SpO2 75% RA on arrival. ABG 7.24/83/70 on 3L. CXR on admission was clear. According the records the patient stated that her insurance recently has change and the [employer] company came and took her BiPAP away. Since then she has had increased sleepiness and difficulty breathing but no fevers, chills, chest pain, wheezing or cough. -hypercapnia could be related to untreated GEORGE, asthma exacerbation, obesity hypoventilation syndrome and/or PNA -patient was admitted to the IMU on BiPAP/AVAPS but ABGs worsened and patient was intubated during the early hours of 03/13 -CTA chest was suboptimal but no apparent PE. Patient did well. ABG improved. She was able to be extubated 03/17 -completed ceftriaxone and azithromycin for community-acquired pneumonia -continue bronchodilators -steroids stopped -wean O2 as tolerated. -suspect her increasing muscle aches are related to her increased activity level and this is better -waiting for insurance to approve Trilogy. Appreciate Pulmonary input. We need to do ApneaLink last night so this was ordered. Unfortunately, the ApneaLink was turned off early in the night so was inaccurate. ABG this mornin.39/ Plan to repeat ApneaLink on 2 L with ABG in the morning so patient can qualify for BiPAP. Will perform that test tonight. 03/24: waiting for approval of home BIPAP (2) Sepsis: Qualifiers: Sepsis acute organ dysfunction status: without acute organ dysfunction Sepsis type: sepsis due to unspecified organism Qualified Code(s): A41.9 - Sepsis, unspecified organism Code(s): A41.9 - Sepsis, unspecified organism Status: Acute Assessment and Plan: Elevated WBC count on admission to [facility]. CTA chest showed bilateral patchy pulmonary infiltrates possibly pneumonia -received adequate amount of IV fluids -03/13 blood cultures NGTD -03/13 MRSA screen was POSITIVE -03/16 Sputum negative -blood pressures remain stable. Procalcitonin level is low. WBC has normalized and she is afebrile -she completed abx course. Sepsis resolved (3) Asthma: Qualifiers: Asthma complication type: unspecified Asthma persistence: unspecified Asthma severity: unspecified severity Qualified Code(s): J45.909 - Unspecified asthma, uncomplicated Code(s): J45.909 - Unspecified asthma, uncomplicated Status: Acute Assessment and Plan: Stable. Continue bronchodilators, steroids and antibiotics Continue inhalers (4) Community acquired pneumonia: Qualifiers: Laterality: unspecified laterality Qualified Code(s): J18.9 - Pneumonia, unspecified organism Code(s): J18.9 - Pneumonia, unspecified organism Status: Acute Assessment and Plan: As above (5) Gastroesophageal reflux disease: Qualifiers: Esophagitis presence: esophagitis presence not specified Qualified Code(s): K21.9 - Gastro-esophageal reflux disease without esophagitis Code(s): K21.9 - Gastro-esophageal reflux disease without esophagitis Status: Acute Assessment and Plan: Stable. Continue Protonix (6) Iron deficiency anemia: Qualifiers: Iron deficiency anemia type: unspecified iron deficiency Qualified Code(s): D50.9 - Iron deficiency anemia, unspecified Code(s): D50.9 - Iron deficiency anemia, unspecified Status: Acute Assessment and Plan: Hgb 8.5 on admission and running mostly in the 7-8 range. Known hx of iron deficiency anemia noted in October. Continue ferrous sulfate tablets She was supposed to follow-up with the GI doctor for colonoscopy but had a canceled the appointment. Encouraged
[2023-03-24 08:39] VITALS: RESP 18; O2SAT 93
[2023-03-24] MEDS: DULoxetine HCL 60 MG CAPSULE.DR PO (08:39)
[2023-03-24] MEDS: TORSEMIDE 20 MG TABLET PO (08:39)
[2023-03-24] MEDS: LORATADINE 10 MG TABLET PO (08:39)
[2023-03-24] MEDS: FERROUS SULFATE 325 MG TABLET DR PO ×2 (08:39→16:39)
[2023-03-24] MEDS: MONTELUKAST SODIUM 10 MG TABLET PO (08:39)
[2023-03-24] MEDS: PANTOPRAZOLE 40 MG TABLET PO (08:39)
[2023-03-24] MEDS: busPIRone HCL 10 MG TABLET PO ×3 (08:39→16:39)
[2023-03-24] MEDS: ENOXAPARIN 40 MG/0.4 ML SYRINGE SUB-Q (08:47)
[2023-03-24 10:55] LABS: Basophils Percent Auto 0.2 % (0.2-1.2); Eosinophils Absolute Auto 0.1 K/mm3 (0-0.3); Eosinophils Percent Auto 2.5 % (0-4.4); Hematocrit 32.8 % (37.0-47.0); Immature Granulocyte Absolute 0.02 K/mm3 (0.00-0.031); Immature Granulocyte Percent A 0.4 % (0-0.5); Lymphocytes Absolute Auto 1.12 K/mm3 (0.9-3.2); Lymphocytes Percent Auto 21.1 % (18.3-44.2); Mean Corpuscular HGB Conc 27.4 g/dl (32-36); Mean Corpuscular Hemoglobin 19.4 pg (26-34); Mean Corpuscular Volume 70.5 fl (80-100); Mean Platelet Volume 8.6 fl (7.4-10.4); Monocytes Absolute Auto 0.7 K/mm3 (0.1-0.6); Monocytes Percent Auto 12.8 % (2.6-8.5); Neutrophils Absolute Auto 3.3 K/mm3 (1.3-6.7); Platelet Count Result 238 k/mm3 (150-375); Red Blood Count 4.65 M/mm3 (4.2-5.4); Red Cell Distribution Width 23.2 % (11.5-14.5); White Blood Count 5.3 K/mm3 (4.5-10.0)
[2023-03-24 11:15] LABS: Alanine Aminotransferase 60 U/L (6-35); Albumin Level 3.6 g/dL (3.5-5.1); Alkaline Phosphatase 98 U/L (38-126); Anion Gap 3 mmol/L (8-16); Aspartate Amino Transferase 48 U/L (14-36); Bilirubin,Total 0.4 mg/dL (0.2-1.3); Blood Urea Nitrogen 9 mg/dL (7-17); Calcium 8.1 mg/dL (8.4-10.2); Carbon Dioxide 37 mmol/L (22-30); Chloride 98 mmol/L (98-107); Estimated CRCL calculation 115 ml/min; Estimated Glomerular Filt Rate > 60; Glucose 109 mg/dL (65-110); Potassium 3.9 mmol/L (3.4-5.0); Sodium 138 mmol/L (137-145)
[2023-03-24 11:23] LABS: Anisocytosis 3+ (NORMAL); Hypochromasia 2+ (NORMAL); Microcytosis 1+ (NORMAL); Platelet Estimate Adequate (Adequate); Schistocytes None Seen (NORMAL)
[2023-03-24 14:13] VITALS: BP 129/62; PULSE 91; RESP 18; TEMP 36.3; O2SAT 91
[2023-03-24] MEDS: ACETAMINOPHEN 325 MG TABLET 650 MG PO (15:06)
--- NOTE | 2023-03-24 15:35 | PM.DS ---
DS: Admitting Diagnosis Discharge Date 03/24/23 Admitting Diagnosis sob DS: Discharge Diagnosis Discharge Diagnosis (1) Acute and chronic respiratory failure with hypercapnia: Code(s): J96.22 - Acute and chronic respiratory failure with hypercapnia Status: Acute Assessment and Plan: Patient presented to the ED with complains of shortness of breath and low pulse oximetry. SpO2 75% RA on arrival. ABG 7.24/83/70 on 3L. CXR on admission was clear. According the records the patient stated that her insurance recently has change and the [employer] came and took her BiPAP away. Since then she has had increased sleepiness and difficulty breathing but no fevers, chills, chest pain, wheezing or cough. -hypercapnia could be related to untreated GEORGE, asthma exacerbation, obesity hypoventilation syndrome and/or PNA -patient was admitted to the IMU on BiPAP/AVAPS but ABGs worsened and patient was intubated during the early hours of 03/13 -CTA chest was suboptimal but no apparent PE. Patient did well. ABG improved. She was able to be extubated 03/17 -completed ceftriaxone and azithromycin for community-acquired pneumonia -continue bronchodilators -steroids stopped -wean O2 as tolerated. -suspect her increasing muscle aches are related to her increased activity level and this is better -waiting for insurance to approve Trilogy. Appreciate Pulmonary input. We need to do ApneaLink last night so this was ordered. Unfortunately, the ApneaLink was turned off early in the night so was inaccurate. ABG this mornin.39/58/67 Plan to repeat ApneaLink on 2 L with ABG in the morning so patient can qualify for BiPAP. Will perform that test tonight. 03/24: waiting for approval of home BIPAP (2) Sepsis: Qualifiers: Sepsis acute organ dysfunction status: without acute organ dysfunction Sepsis type: sepsis due to unspecified organism Qualified Code(s): A41.9 - Sepsis, unspecified organism Code(s): A41.9 - Sepsis, unspecified organism Status: Acute Assessment and Plan: Elevated WBC count on admission to 11K. CTA chest showed bilateral patchy pulmonary infiltrates possibly pneumonia -received adequate amount of IV fluids -03/13 blood cultures NGTD -03/13 MRSA screen was POSITIVE -03/16 Sputum negative -blood pressures remain stable. Procalcitonin level is low. WBC has normalized and she is afebrile -she completed abx course. Sepsis resolved (3) Asthma: Qualifiers: Asthma complication type: unspecified Asthma persistence: unspecified Asthma severity: unspecified severity Qualified Code(s): J45.909 - Unspecified asthma, uncomplicated Code(s): J45.909 - Unspecified asthma, uncomplicated Status: Acute Assessment and Plan: Stable. Continue bronchodilators, steroids and antibiotics Continue inhalers (4) Community acquired pneumonia: Qualifiers: Laterality: unspecified laterality Qualified Code(s): J18.9 - Pneumonia, unspecified organism Code(s): J18.9 - Pneumonia, unspecified organism Status: Acute Assessment and Plan: As above (5) Gastroesophageal reflux disease: Qualifiers: Esophagitis presence: esophagitis presence not specified Qualified Code(s): K21.9 - Gastro-esophageal reflux disease without esophagitis Code(s): K21.9 - Gastro-esophageal reflux disease without esophagitis Status: Acute Assessment and Plan: Stable. Continue Protonix (6) Iron deficiency anemia: Qualifiers: Iron deficiency anemia type: unspecified iron deficiency Qualified Code(s): D50.9 - Iron deficiency anemia, unspecified Code(s): D50.9 - Iron deficiency anemia, unspecified Status: Acute Assessment and Plan: Hgb 8.5 on admission and running mostly in the 7-8 range. Known hx of iron deficiency anemia noted in October. Continue ferrous sulfate tablets She was supposed to follo
[2023-03-24] MEDS: NEOMYCIN/POLYMYXIN/BACITRACIN OINTMENT PACKET 1 PACKET (16:00)
== END 2023-03-24 18:05 | disposition home or self-care (01) | DRG 207 ==
LOC: ANHED 15:01 → ANHIMU 17:11 → ANHICU 03-13 01:42 → ANHIMU 03-18 17:18 → ANH2MED 03-20 17:05
PROVIDERS: Internal Medicine; Internal Medicine Pulmonary Disease; Nurse Practitioner; Admitting Provider Chiropractor; Emergency Provider Emergency Medicine; PCP Nurse Practitioner Family; Visit Provider Student in an Organized Health Care Education/Training Program
DX: J96.22 Acute and chronic respiratory failure with hypercapnia (principal); A41.9 Sepsis, unspecified organism; J18.9 Pneumonia, unspecified organism; Z68.43 Body mass index [BMI] 50.0-59.9, adult; E66.2 Morbid (severe) obesity with alveolar hypoventilation; G47.33 Obstructive sleep apnea (adult) (pediatric); F41.9 Anxiety disorder, unspecified; I10 Essential (primary) hypertension; M79.7 Fibromyalgia; K21.9 Gastro-esophageal reflux disease without esophagitis; D50.9 Iron deficiency anemia, unspecified; J45.909 Unspecified asthma, uncomplicated; Z22.322 Carrier or suspected carrier of Methicillin resistant Staphylococcus aureus; Z99.81 Dependence on supplemental oxygen
CPT/HCPCS: 31500; 36415; 36569; 36600; 70450; 71045; 71046; 71275; 80048; 80053; 80202; 82375; 82805; 82948; 83050; 83605; 83735; 83880; 84100; 84145; 84478; 85025; 85027; 87040; 87070; 87081; 87205; 87637; 93005; 94002; 94003; 94640; 94762; 97116; 97161; 97530; 99285; A9270; C9113; J0456; J0696; J1650; J1815; J1940; J2250; J2543; J2704; J2930; J3010; J3370; J7030; J7050; J7512; Q9967

== ENCOUNTER 2023-07-29 15:55 | Emergency (ER) | payer MEDICARE, SELFPAY ==
--- NOTE | 2023-07-29 16:09 | ED.GENADULT ---
HPI - General Adult General Chief complaint: Skin/Abscess/Foreign Body Stated complaint: Left Breast Irritation Source: patient, RN notes reviewed and old records reviewed Mode of arrival: ambulatory Limitations: no limitations History of Present Illness HPI narrative: 53-year-old female presents to [facility] with complaint of abscess to left outer breast. Patient states started 4 days ago patient has been using PRID. Patient denies drainage. MD complaint: abscess Onset (ago): day(s) (4) Related Data Home Medications Medication Instructions Recorded Confirmed cetirizine 10 mg tablet (Zyrtec) 10 mg PO DAILY 08/06/19 07/29/23 montelukast 10 mg tablet 10 mg PO DAILY 08/06/19 07/29/23 (Singulair) Home Oxygen 04/01/22 07/29/23 [facility] System 04/01/22 07/29/23 buspirone 10 mg tablet 10 mg PO TID 04/01/22 07/29/23 ferrous sulfate 325 mg (65 mg 325 mg PO Q48H 01/27/23 07/29/23 iron) tablet,delayed release tezepelumab-ekko 210 mg/1.91 mL 210 mg subcut MONTHLY 03/13/23 07/29/23 (110 mg/mL) subcutaneous pen injector (Trellspire) albuterol sulfate 2.5 mg/3 mL 2.5 mg inhalation Q6-8H PRN 04/21/23 07/29/23 (0.083 %) solution for nebulization amitriptyline 25 mg tablet 25 mg PO DAILY 04/21/23 07/29/23 amlodipine 5 mg tablet 5 mg PO DAILY 04/21/23 07/29/23 azelastine 137 mcg (0.1 %) nasal intranasal 04/21/23 07/29/23 spray aerosol fluticasone propionate 50 intranasal 04/21/23 07/29/23 mcg/actuation nasal spray,suspension omeprazole 20 mg capsule,delayed 40 mg PO DAILY 04/21/23 07/29/23 release duloxetine 60 mg capsule,delayed 90 mg PO DAILY 07/29/23 07/29/23 release Allergies Allergy/AdvReac Type Severity Reaction Status Date / Time nickel Allergy Intermediate Swelling Verified 07/29/23 14:06 METALS Allergy Intermediate Rash Uncoded 04/21/23 14:58 Review of Systems Constitutional: Constitutional: Reports no additional constitutional complaints, Denies body ache(s), Denies chills, Denies fatigue, Reports fever(s) and Denies headache(s) Eyes: Eyes: Reports no additional eye complaints and Denies blurry vision ENT: Reports system reviewed and no additional complaints, except as documented, Denies vertigo, Denies dizziness, Denies ear discharge, Denies otalgia, Denies facial pain, Denies headache(s), Denies nasal congestion, Denies nasal discharge, Denies sinus pain, Denies sinus pressure and Denies sore throat Cardiovascular: Cardiovascular: Reports no additional cardiovascular complaints, Denies chest pain, Denies chest pain at rest, Denies rapid heart rate and Denies dyspnea Respiratory: Respiratory: Reports no additional respiratory complaints, Denies chest congestion, Denies cough, Denies pain on inspiration, Denies pain with cough and Denies dyspnea Gastrointestinal: Gastrointestinal: Denies abdominal pain, Denies diarrhea, Denies nausea and Denies vomiting Integumentary/Breasts: Skin/Breast: Reports change in pigmentation, Reports erythema, Denies rash and Reports sores Neurologic: Reports system reviewed and no additional complaints, except as documented, Denies vertigo, Denies dizziness and Denies headache(s) Endocrine: Endocrine: Denies fatigue PMFSH Past Medical History Medical History Anxiety Asthma Chronic sinusitis COVID-19 ruled out by laboratory testing Fibromyalgia Gastroesophageal reflux disease Hypertension Iron deficiency anemia Morbid obesity MRSA (methicillin resistant Staphylococcus aureus) carrier Obstructive sleep apnea Patient reports that her most recent sleep study showed no indication for CPAP. Tendonitis Surgical History Surgical History H/O: hysterectomy History of bilateral carpal tunnel release x2 History of cervical spinal surgery History of section X1 History of endometrial ablation History of sinus surgery History of t
[2023-07-29 16:12] VITALS: BP 151/60; PULSE 96; RESP 20; TEMP 37.3; O2SAT 100
== END 2023-07-29 16:50 | disposition home or self-care (01) ==
PROVIDERS: Emergency Provider Registered Nurse; PCP Nurse Practitioner Family
DX: N61.1 Abscess of the breast and nipple (principal); I10 Essential (primary) hypertension; Z79.899 Other long term (current) drug therapy; Z99.81 Dependence on supplemental oxygen
CPT/HCPCS: 10060; 87070; 87075; 87205; 99213; G0463

== ENCOUNTER 2023-09-02 12:46 | Outpatient (CLI) | payer MEDICARE, SELFPAY ==
[2023-09-02 13:00] VITALS: PULSE 86; O2SAT 94
[2023-09-02 13:04] VITALS: PULSE 120; O2SAT 86
[2023-09-02 13:05] VITALS: O2SAT 87
[2023-09-02 13:06] VITALS: PULSE 122; O2SAT 91
[2023-09-02 13:15] VITALS: PULSE 90; O2SAT 94
--- NOTE | 2023-09-02 15:09 | PCRCNOTE ---
HOME O2 EVAL DONE 09/02/23 2L ACT, R/A REST
--- NOTE | 2023-09-02 15:09 | HOMEO2EVAL ---
Evaluation was performed at [facility] Home Oxygen Evaluation RC: Home Oxygen (O2) Evaluation Start: 09/02/23 15:07 Freq: Status: Active Protocol: RPE Activity Type Activity Date Activity User E-sign Co-sign Detail Recorded Client Recorded Date Recorded By Document 09/02/23 13:00 VIOLET [id number] 09/02/23 15:09 VIOLET Document 09/02/23 13:04 VIOLET [email or web address] 09/02/23 15:09 VIOLET Document 09/02/23 13:05 VIOLET [id number] 09/02/23 15:09 VIOLET Document 09/02/23 13:06 VIOLET [email or web address] 09/02/23 15:09 VIOLET Document 09/02/23 13:15 VIOLET [id number] 09/02/23 15:09 VIOLET 09/02/23 09/02/23 09/02/23 13:00 13:04 13:05 Home O2 Evaluation [Oxygen] -Test Phase Resting Exercise Exercise -Oxygen Delivery Room Air Room Air Nasal Cannula -Oxygen Flow Rate (L/min) 1 [Pulse Oximetry] -Pulse Oximetry (90-100 %) 94 86 L 87 L [Pulse Rate] -Pulse Rate (60-100 beats/min) 86 120 H [Evaluation] -Activity Tolerance -Rating of Perceived Dyspnea (PD) [Exercise] -Ambulation Distance (feet) -Ambulation Distance (meters) [Comments] -Home Oxygen Evaluation Comments [Charges] -Evaluation Charges O2 Evaluation by Pulmonary 09/02/23 09/02/23 13:06 13:15 Home O2 Evaluation [Oxygen] -Test Phase Exercise Resting -Oxygen Delivery Nasal Cannula Room Air -Oxygen Flow Rate (L/min) 2 [Pulse Oximetry] -Pulse Oximetry (90-100 %) 91 94 [Pulse Rate] -Pulse Rate (60-100 beats/min) 122 H 90 [Evaluation] -Activity Tolerance Excellent -Rating of Perceived Dyspnea (PD) +3 Moderate Difficulty, But Can Continue [Exercise] -Ambulation Distance (feet) 700 -Ambulation Distance (meters) 213.34 [Comments] -Home Oxygen Evaluation Comments PT REQUIRES 2L WITH ACTIVITY. ROOM AIR AT REST [Charges] -Evaluation Charges
--- NOTE | 2023-09-02 16:48 | WPDPFTINT ---
PFT Procedure Performed PFT Procedure Performed Spirometry with Pre/Post Bronchodilator Plethysmography (Lung Vol) Diffusing Cap (DLCO) Flow Vol Loop PFT Interpretation This is a pulmonary function test with pre and post-bronchodilator spirometry, plethysmography and diffusing capacity. The test was performed and results interpreted in accordance with the 2019 and 2005 ATS/ERS Task Force guidelines respectively using the Global Lung Function Initiative-2012 reference equations. Patient demonstrated good effort and cooperation. Reproducibility criteria were met. The quality of the pre bronchodilator spirometry maneuver was Grade A and post bronchodilator spirometry maneuver was Grade A. Findings: Spirometry: There is decreased maximal expiratory airflow at all lung volumes with concave expiratory flow tracing. The contour the inspiratory flow tracing is normal. The pre bronchodilator FVC is 1.72 L, 52% predicted. The pre bronchodilator FEV1 is 1.07 L, 41% predicted. The pre bronchodilator FEV1: FVC ratio 63%. The post bronchodilator FVC is 2.26 L, representing a 32% increase. The post bronchodilator FEV1 is 1.58 L, representing a 47% increase. The post bronchodilator FEV1: FVC ratio 70%. Plethysmography: The total lung capacity is 5.89 L, 120% predicted. The functional residual capacity is 4.38 L, 160% predicted. The residual volume is 3.86 L, 220% predicted. The residual volume:Total lung capacity ratio is 66%. Diffusing capacity: The diffusing capacity unadjusted for hemoglobin and carboxyhemoglobin is 17.2, 78% predicted. The diffusing capacity adjusted for alveolar volume is 4.44, 96% predicted. Impression: There is a severe obstructive abnormality. There is significant improvement after inhaling a single dose of albuterol. The increase in residual volume to total lung volume ratio is consistent with hyperinflation from an obstructive abnormality. The diffusing capacity is normal. There are no prior studies for comparison
== END 2023-09-02 12:47 | disposition home or self-care (01) ==
PROVIDERS: PCP Nurse Practitioner Family; Visit Provider Internal Medicine Pulmonary Disease
DX: J45.909 Unspecified asthma, uncomplicated (principal); R94.2 Abnormal results of pulmonary function studies
CPT/HCPCS: 94060; 94618; 94726; 94729

== ENCOUNTER 2024-10-31 08:12 | Outpatient (CLI) | payer MEDICARE, SELFPAY ==
--- NOTE | ~2024-10-31 | CT_ITS ---
CT Scan of the Chest without Contrast: Clinical Indication: Asthma Technique: Contiguous sections were acquired throughout the chest without intravenous contrast. Dose reduction technique was used on this scan by utilizing automated exposure control and iterative recon struction technique. The dose-length product (DLP) was 1056.87 mGy-cm. COMPARISON: 03/13/2023 Findings: There is no evidence of any significant mediastinal, hilar or axillary lymphadenopathy. The mediastin al soft tissues appear normal. There is no evidence of pleural or pericardial effusion. The lungs are clear. No pulmonary nodules or infiltrates are noted. Images through the upper abdomen reveal no abnormalities. Chronic bilaterally fracture deformities ar e present. Impression: No significant abnormalities seen. Reviewed, dictated and finalized at location . Impression: No significant abnormalities seen.
--- NOTE | ~2024-10-31 | CT_ITS ---
CT of the Abdomen and Pelvis: Indication: Abdominal distention Technique: 2.5 mm axial scans were obtained through the abdomen and pelvis following intravenous adm inistration of 100 cc of Omnipaque 350. Dose reduction technique was used on this scan by utilizing a utomated exposure control and iterative reconstruction technique. The dose-length product (DLP) was 1 623.97 mGy-cm. COMPARISON: 10/03/2022 Findings: Scans through the lung bases are unremarkable. The liver, spleen, pancreas, gallbladder, adrenals and kidneys are within normal limits. No evidence of aortic aneurysm. No lymphadenopathy. No bowel obstruction or bowel wall thickening. There is no evidence to suggest acute appendicitis. Images through the pelvis were performed. Urinary bladder unremarkable. Probable small uterine fibroi ds. No ascites. Impression: No acute abnormality. Probable small uterine fibroids. Reviewed, dictated and finalized at [facility]. Impression: No acute abnormality. Probable small uterine fibroids.
--- OUTSIDE RECORDS SUMMARY | 2024-10-31 08:44 | XMS_ITS | Continuity of Care Document ---
Author Organization [facility] Address [address] [place] [address] utive [facility] [address] [place] [address] Phone Care Team Providers Care Product Director Name Role Phone Ayala OD, Dereje Unavailable Unavailable Procedures Procedure Date Eye Exam, New Patient Refraction Advance Directives Directive Yes / No Effective Date File Name No Information Encounters Encounter Description Practice Location Reason(s) For Visit Diagnoses Date Provider Providers Copied on Encounter formerly [facility], [address] [place] [address] [address], [place], [place], [id number], [place] tel:[phone] SEC [facility] No Information [phone] Ayala OD Dereje. [address] , [address], [place], [address], [place]. tel:[phone] Family History Family Member Type Diagnosis Age At Onset No Information Payers Payer name Insurance type Covered libertarian ID Authoriza tion(s) Medicaid [facility] [id number] Social History Type Description Quantity Date Captured [...]
--- OUTSIDE RECORDS SUMMARY | 2024-10-31 08:44 | XMS_ITS | Encounter Summary ---
Author Organization [facility] Health Address [address] [place] [address] Care Team Providers Care Employee'S Representative Name Role Phone Doreen Mae Primary Care Provider + Celia Carson PA-C Primary Care Provider + Reason for Visit * Reason Onset Date Comments Appointment 11/29/2018 Encounter Details Date Type Department Care Team (Late st Contact Info) Description 11/29/2018 Telephone [facility] Medicine [address] [phone] Doreen Mae, KELLI [address] OF [facility] [place] [address] Appointment Social History Tobacco Use Types Packs/Day Years Used Date Smoking Tobacco: Never Smokeless Tobacco: Never Alcohol Use Standard Drinks/Week Comments No 0 (1 standard drink = 0.6 oz pur e alcohol) Comments No Sex and Gender Information Value Date Recorded Sex Assigned at Not on file Legal Sex Female 4:38 PM CDT Gender Identity Not on file Sexual Orientation Not on file 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 ?? Please schedule patient with SLAB WORKER Christianne Leon Segura or [facility] for later in the month, ideally around 12/22/18. To keep appointment with me 01/24/19, as well. * Telephone Encounter - Doreen Dsouza APRN-CNP - 12/01/2018 10:59 AM CDT This is too soon to see me back. Please schedule patient with SLAB WORKER Christianne Leon Segura, or [facility] for later in the month, ideally around 12/22/18. To keep appointment with me 01/24/19, as well. ThanksDoreen APRN-CNP * Telephone Encounter - Cathie Champagne - 12/01/2018 10:47 AM CDT Pt is scheduled to see Nurse Practitioner Doreen Dsouza on 12/07/18 at 2:20 PM * Telephone Encounter - Cathie Champagne - 11/30/2018 4:23 PM CDT Upon chart review pt has an appt with Doreen Dsouza on 01/24/19 at 9:30 AM * Telephone Encounter - Doreen Dsouza APRN-CNP - 11/30/2018 11:28 AM CDT I will be out of the office 12/21-01/02. If patient needs to be seen within a month, will need to be seen by another SLAB WORKER: Celia Avalos, Alexia Nation or Arti Leon or will need to be seen before I am out of the office. I do not need to see her monthly. However, if it is required for her weight loss surgery, she can be scheduled. ThanksDoreen APRN-CNP * Telephone Encounter - Zulema Schwartz - 11/29/2018 4:19 PM CDT Pt: Angie Sanchez#: [id number] Pt calling to verify her next appointment with Doreen Dsouza NP. She is scheduled for an appointment on 01/24/19 Pt states she remembers that Doreen Dsouza may want to see her every month- not in 2 months. Please advise if pt should be scheduled for a sooner appt. PAMELLA: 11/29/18 NOV: 01/24/19 Thank youl documented in this encounter Plan of Treatment Not on file documented as of this encounter Visit Diagnoses Not on filedocumented in this encounter Care Teams Employee'S Representative Relationship Specialty Start Date End Date Doreen Mae APRN-CNP [address] [place] [address] PCP - General Nurse Practitioner 09/27/18 12/03/20 Celia Carson PA-C [address] [place] [address] PCP - General 12/04/20 documented as of this encounter
--- OUTSIDE RECORDS SUMMARY | 2024-10-31 08:44 | XMS_ITS | Encounter Summary ---
Author Organization [facility] Health Address [address] [facility] [place] [address] Care Team Providers Care Retail Sales Manager Name Role Phone Celia Carson PA-C Primary Care Provider + Encounter Details Date Type Department Care Team (Late st Contact Info) Description 12/04/2020 Telephone [facility] Pul[facility], Critical Care and [facility] Medicine [address] [place] [address] Smita Lopez MD [address] OF PUL[facility]CRITICAL CARE [place], [place] [phone] Social History Tobacco Use Types Packs/Day Years [...] encounter Miscellaneous Notes * Telephone Encounter - Nataliia Garcia - 12/04/2020 2:07 PM CDT Current Provider name: Dr. Smita Lopez Reason for call: Ms. Angie Leos would like you to call her re: her PFT done about 07/29/2020 and a Cardio Echo test done afterwards. She would like to review results. Her MyCHart is down. Patient Call Back number: [phone] documented in this encounter Plan of Treatment Not on file documented as of this encounter Visit Diagnoses Not on filedocumented in this encounter Care Teams Retail Sales Manager Relationship Specialty Start Date End Date Celai Carson PA-C PCP - General 12/04/20 documented as of this encounter
--- OUTSIDE RECORDS SUMMARY | 2024-10-31 08:44 | XMS_ITS | Encounter Summary ---
Author Organization [facility] Health Address [address] [facility] [place] [address] Care Team Providers Care Director Radio Name Role Phone Doreen Mae Primary Care Provider + Celia Carson PA-C Primary Care Provider + Encounter Details Date Type Department Care Team (Late st Contact Info) Description 03/29/2019 Telephone [facility] [address] [place] [address] Doreen Mae APRN-CNP [address] [place] [address] Social History Tobacco Use Types Packs/Day Years [...] encounter Miscellaneous Notes * Telephone Encounter - Doreen Dsouza APRN-CNP - 03/29/2019 10:12 AM CDT Please notify nebs will need to be ordered per pulmonology or allergy, as they are treating her forasthma. Thanks, KELLI Hardy * Telephone Encounter - Gracia Plaza LPN - 03/29/2019 10:02 AM CDT Images from the original note were not included. Afsaneh Banks Aryn K, APRN-CNP 12 minutes ago (9:48 AM) Please advise thanks Routing comment * Telephone Encounter - Asiya Root - 03/29/2019 9:37 AM CDT Current Provider name:Doreen Dsouza Reason for call: Patient is requesting nebulizer treatments beforeher appointment tomorrow. Patient Call Back number: [phone] documented in this encounter Plan of Treatment Not on file documented as of this encounter Visit Diagnoses Not on filedocumented in this encounter Care Teams Director Radio Relationship Specialty Start Date End Date Doreen Mae APRN-CNP [facility] [place] [address] PCP - General Nurse Practitioner 09/27/18 12/03/20 Celia Carson PA-C [facility] [place] [address] PCP - General 12/04/20 documented as of this encounter
--- OUTSIDE RECORDS SUMMARY | 2024-10-31 08:44 | XMS_ITS | Referral Summary ---
Author Organization [facility] [address] [facility] Address [address] [place] [address] Care Team Providers Care Piling Cutter Name Role Phone Marilyn Augustin AWNINGS MECHANIC Primary Care Provider [phone] Encounters Date Type Department Care Team Description 10/17/2024 Telephone [facility] Family [facility] [address] [facility] [address] [place] [address] Marilyn Augustin, JOYCELYN from Last 3 Months Allergies Active Allergy Reactions Criticality Noted Date Comments Nickel Swelling,Itching,Unknown Medium 03/29/2020 Medications blood pressure kit-extra large kitIndications:Es sential hypertension 1 each daily 1 kit 021 Active azelastine (ASTELIN) 137 mcg (0.1 %) nasal spray Administer 2 sprays into each nostril 2 (two) times a day Use in each nostril as directed 30 mL 3 022 Active EPINEPHrine 0.3 mg/0.3 mL auto-injection syringe INJECT 0.3 ML INTO THE MUSCLE INSTRUCTED ONCE FOR 1 DOSE 1 each 1 022 Active tretinoin (RETIN-A) 0.01 % gelIndications:Ac ne, unspecified acne type APPLY TO AFFECTED AREA AT NIGHT 45 g 2 023 Active levalbuterol (XOPENEX) 1.25 mg/3 mL nebulizer solutionIndicatio ns:Severe persistent asthma, unspecified whether complicated (HCC) Take 3 mL (1.25 mg total) by nebulization every 6 (six) hours as needed for wheezing or shortness of breath 180 mL 3 023 Active Spiriva with HandiHaler 18 mcg per inhalation capsuleIndication s:Severe persistent asthma, uncomplicated (HCC) Place 1 puff (1 capsule total) into inhaler and inhale daily 30 capsule 023 Active mupirocin (BACTROBAN) 2 % ointment 023 Active Antacid Regular Strength 200-200-20 mg/5 mL suspension 023 Active amLODIPine (NORVASC) 5 mg tabletIndications :Hypertension, essential TAKE 1 TABLET(5 MG) BY MOUTH DAILY 90 tablet 1 023 Active fluticasone propion-salmetero L (ADVAIR HFA) 230-21 mcg/actuation inhaler Inhale 2 puffs 2 (two) times a day Rinse mouth with water after use. Do not swallow. Active baclofen (LIORESAL) 10 mg tabletIndications :Chronic bilateral low back pain with bilateral sciatica TAKE 1 TABLET(10 MG) BY MOUTH THREE TIMES DAILY 90 tablet 024 Active ferrous sulfate 325 mg (65 mg of elemental iron) tablet Take 1 tablet (65 mg of elemental iron total) by mouth daily with breakfast 90 tablet 1 024 Active cetirizine (ZyrTEC) 10 mg tablet Take 1 tablet (10 mg total) by mouth daily 90 tablet 1 024 Active meclizine (ANTIVERT) 12.5 mg tabletIndications :Dizziness Take 1 tablet (12.5 mg total) by mouth 3 (three) times a day as needed for dizziness 90 tablet 024 Active Tezspire 210 mg/1.91 mL (110 mg/mL) pen injector INJECT 210MG SUBCUTANEOUSLY EVERY 4 WEEKS 1.91 mL 024 Active albuterol 2.5 mg /3 mL (0.083 %) nebulizer solutionIndicatio ns:Asthma, unspecified asthma severity, unspecified whether complicated, unspecified whether persistent USE 1 VIAL VIA NEBULIZER EVERY 6 HOURS NEEDED FOR WHEEZING OR SHORTNESS OF BREATH 300 mL [address] (CYMBALTA) 30 mg capsuleIndication s:Anxiety with Depression,Chroni c Musculoskeletal Pain Take 1 capsule (30 mg total) by mouth daily 90 capsule 1 024 Active albuterol HFA (PROVENTIL HFA,VENTOLIN HFA,PROAIR HFA) 90 mcg/actuation inhaler INHALE 2 PUFFS BY MOUTH EVERY 4 HOURS NEEDED FOR WHEEZING OR SHORTNESS OF BREATH 25.5 g [address] (CYMBALTA) 60 mg capsuleIndication s:Anxiety TAKE 1 CAPSULE(60 MG) BY MOUTH DAILY 90 capsule 1 024 Active montelukast (SINGULAIR) 10 mg tabletIndications :Seasonal allergies Take 1 tablet (10 mg total) by mouth daily 30 tablet 1 024 Active omeprazole (PriLOSEC) 40 mg capsuleIndication s:Gastroesophagea l reflux disease without esophagitis Take 1 capsule (40 mg total) by mouth daily 90 capsule 1 024 Active torsemide (DEMADEX) 20 mg tabletIndications :Localized edema Take 1 tablet (20 mg total) by mouth daily 90 tablet 1 024 Active amitriptyline (ELAVIL) 25 mg tablet TAKE 1 TABLET BY MOUTH ONCE NIGHTLY 100 tablet 025 Active fluticasone propionate (FLONASE) 50 mcg/actuation nasal sprayIndications: Seasonal allergies SPRAY 2 SPRAYS INTO EACH NOSTRIL EVERY DAY 16 mL 1 025 Active fluticasone propionate (FLONASE) 50 mcg/actuation nasal sprayIndications: Seasonal allergies Administer 2 sprays into each nostril daily 16 mL 1 024 2024 Discontinued Active Problems Problem Noted Date Diagnosed Date Seasonal allergies 05/02/2024 Acute bilateral low back pain without sciatica 0 08/11/2023 Chronic pain syndrome 08/11/2023 Overview (08/11/2023): Continue Cymbalta 90 mg daily as directed Chronic bilateral low back pain with bilateral s ciatica 06/09/2023 Assessment & Plan (06/09/2023 9:42 AM CUSTOMER ACQUISITION MANAGER): This is a significant, separately identifiable problem that was evaluated and managed on the same day as the wellness exam Breast cancer screening by mammogram 04/07/2023 Functional diarrhea 02/08/2023 Acute on chronic respiratory failure with hypoxi a 02/08/2023 Excessive hair growth 11/05/2022 Thrush, oral 11/05/2022 Arthritis of both knees 09/27/2022 11/06/19 23 Acne 09/27/2022 11/05/2022 Mixed anxiety and depressive disorder 09/27/2022 11/05/2022 Hypoxia 09/27/2022 11/05/2022 Sleep apnea 09/27/2022 11/05/2022 Hypertension, essential 09/27/2022 11/06/19 23 Gastroesophageal reflux disease without esophagi tis 09/27/2022 11/05/2022 Severe persistent asthma 09/27/2022 023 Trigger finger of left hand 09/27/2022 05/0 10/2022 Severe persistent asthma, uncomplicated 03/03/20 22 Cervical stenosis (uterine cervix) 01/19/2022 Assessment & Plan (01/19/2022 5:30 PM CDT): She has appt with [facility] pending that she will keep Trigger ring finger of left hand 01/19/2022 Assessment & Plan (01/19/2022 5:30 PM CDT): Will refer to ortho for further evaluation and treatment Low hemoglobin 01/01/2022 Assessment & Plan (01/01/2022 6:44 PM CDT): Will retrieve er notes for review Will repeat cbc this week Weight loss 12/03/2021 Assessment & Plan (12/03/2021 8:19 PM CDT): Intentional. Encouraged continued attempts at heart healthy diet, weight loss. Hirsutism 12/03/2021 Menopause syndrome 12/03/2021 Assessment & Plan (12/03/2021 8:21 PM CDT): Has pending referral to [facility] that she will keep Will evaluate further with labs, will notify her of results as available Polyarthralgia 10/09/2021 Assessment & Plan (12/03/2021 8:20 PM CDT): Discontinue voltaren. Will start on indocin temporarily. Will plan on a bmp at f/u appt. Assessment & Plan (10/09/2021 12:09 PM CDT): Will restart cymbalta We reviewed autoimmune labs, will refer to rheumatology Screening for colon cancer 10/09/2021 Edema 08/01/2021 Assessment & Plan (08/01/2021 9:59 AM CUSTOMER ACQUISITION MANAGER): Resume prn torsemide. We discussed if using routinely will need bun/cr and K levels drawn in the next 3-4w. She anticipates 1-2x/week but will let us know if increasing to daily. Leg pain, bilateral 08/01/2021 Assessment & Plan (08/01/2021 9:59 AM CUSTOMER ACQUISITION MANAGER): Will evaluate further with US of bilateral legs Elevated antinuclear antibody (RODRIGO) level 2020 Assessment & Plan (10/09/2021 12:09 PM CDT): Will restart cymbalta We reviewed autoimmune labs, will refer to rheumatology Assessment & Plan (08/01/2021 9:57 AM CUSTOMER ACQUISITION MANAGER): Has pending lab work for Dr. Bunch that she will complete She reports when she called her insurance she was told that there might be a provider in network for rheumatology in [facility] - will try a different location. Assessment & Plan (06/20/2021 11:43 AM CUSTOMER ACQUISITION MANAGER): We reviewed recent labs Will refer to rheum for further evaluation and treatment Pulmonary artery hypertension 06/03/2021 Assessment & Plan (08/01/2021 9:56 AM CUSTOMER ACQUISITION MANAGER): Continue care with pulmonology Advised her to reschedule with cardiology Assessment & Plan (06/20/2021 11:43 AM CUSTOMER ACQUISITION MANAGER): Continue with hctz daily Assessment & Plan (06/03/2021 7:01 PM CUSTOMER ACQUISITION MANAGER): Advised attempts at bp control Will refer to cv for further evaluation and treatment Chronic neck pain 06/03/2021 Assessment & Plan (06/20/2021 11:43 AM CUSTOMER ACQUISITION MANAGER): Will refer to closer orthopedist for her commute Assessment & Plan (06/03/2021 7:00 PM CUSTOMER ACQUISITION MANAGER): Advised referral to specialist, will help her arrange Cervical radiculopathy 06/03/2021 Assessment & Plan (06/03/2021 7:00 PM CUSTOMER ACQUISITION MANAGER): Advised referral, will help her arrange Need for vaccination 05/01/2021 Episode of recurrent major depressive disorder 1 Assessment & Plan (05/01/2021 11:40 AM CDT): She declines ssri/snri at this time Will refer her to psychiatry Obstructive sleep apnea 04/02/2021 Assessment & Plan (12/03/2021 8:20 PM CDT): Continue care per pulmonology. Advised calling their office regarding cpap titration and questions. Hypoxemia 04/02/2021 Hypersomnia 04/02/2021 Sleep disorder 04/02/2021 Snoring 04/02/2021 Rectal bleed 12/16/2020 Assessment & Plan (01/19/2022 5:30 PM CDT): She has gi consult and cscope pending - she is going to call to reschedule Assessment & Plan (01/01/2022 6:43 PM CDT): Advised no nsaids Advised keeping stools loose We will attempt to retrieve er records for review Advised referral to gi *provider obtained ct abd/pelvis and attempted to contact patient at 4pm to review results. Unable to leave a voicemail on phone. Assessment & Plan (12/16/2020 11:31 AM CDT): History of. Will refer to Gastroenterology for further evaluation and treatment. Right hand pain 12/16/2020 Assessment & Plan (12/16/2020 11:31 AM CDT): She has pending appointment with Dr. Grimm, however she notes due to transportation issues she would prefer Dr. Mackey. Will enter order for her. Intractable migraine without status migrainosus 12/16/2020 Anxiety 12/16/2020 Assessment & Plan (05/01/2021 11:39 AM CDT): She declines ssri/snri at this time Will refer her to psychiatry Assessment & Plan (12/16/2020 11:30 AM CDT): She declines an increase in Cymbalta at this time. Will refer her to Psychiatry for further evaluation and treatment. Morbid obesity with BMI of 50.0-59.9, adult 09/03 Assessment & Plan (05/02/2024 7:24 AM CDT): Discussed the patient's BMI. The BMI is above average. BMI management plan is completed. BMI Follow-up includes: nutrition counseling, exercise counseling and education provided. Assessment & Plan (06/09/2023 9:18 AM CUSTOMER ACQUISITION MANAGER): Discussed the patient's BMI. The BMI is above average. BMI management plan is completed. BMI Follow-up includes: nutrition counseling, exercise counseling and education provided. Assessment & Plan (04/07/2023 11:55 AM CDT): Discussed the patient's BMI. The BMI is above average. BMI management plan is completed. BMI Follow-up includes: nutrition counseling, exercise counseling and education provided. Assessment & Plan (01/19/2022 5:30 PM CDT): Discussed the patient's BMI. The BMI is above average. BMI management plan is completed. BMI Follow-up includes: nutrition counseling, exercise counseling and education provided. Assessment & Plan (08/01/2021 9:57 AM CUSTOMER ACQUISITION MANAGER): Obesity is unchanged. Discussed the patient's BMI. The BMI is above average. BMI management plan is completed. BMI Follow-up includes: nutrition counseling, exercise counseling and education provided. Assessment & Plan (06/20/2021 11:43 AM CUSTOMER ACQUISITION MANAGER): Obesity is unchanged. Discussed the patient's BMI. The BMI is above average. BMI management plan is completed. BMI Follow-up includes: nutrition counseling, exercise counseling and education provided. Assessment & Plan (05/01/2021 9:04 AM CDT): Obesity is unchanged. Discussed the patient's BMI. The BMI is above average. BMI management plan is completed. BMI Follow-up includes: nutrition counseling, exercise counseling and education provided. Assessment & Plan (01/13/2021 9:00 AM CDT): Weight/BMI is in healthy range. Continue healthy lifestyle to maintain. Assessment & Plan (12/16/2020 9:48 AM CDT): Obesity is unchanged. Discussed the patient's BMI. The BMI is above average. BMI management plan is completed. BMI Follow-up includes: nutrition counseling, exercise counseling and education provided. Assessment & Plan (09/25/2020 2:25 PM CDT): Obesity is unchanged. Discussed the patient's BMI. The BMI is above average. BMI management plan is completed. BMI Follow-up includes: nutrition counseling, exercise counseling and education provided. Allergic rhinitis 09/25/2020 Anxiety disorder 09/25/2020 Assessment & Plan (09/25/2020 3:07 PM CDT): Continue cymbalta same dose at this time. Has appt pending with psychiatry that she will keep. Arthritis 09/25/2020 Asthma 09/25/2020 Assessment & Plan (01/19/2022 5:31 PM CDT): We reviewed notes from [facility]. She is going to call her current oxygen company and order a current supply as she is not certain she can walk down the hallway in the hospital for her 6min walk. She will communicate with the [facility] regarding these concerns. Assessment & Plan (01/01/2022 6:43 PM CDT): Continue with oxygen, she reports that she has refills at home. Assessment & Plan (12/03/2021 8:20 PM CDT): Continue care per pulmonology, refill meds as needed Assessment & Plan (10/09/2021 12:08 PM CDT): Continue with care per pulmonology Continue with bpap Assessment & Plan (08/01/2021 9:57 AM CUSTOMER ACQUISITION MANAGER): Continue with care per Dr. Bunch Assessment & Plan (06/03/2021 7:00 PM CUSTOMER ACQUISITION MANAGER): Continue with care per pulm Assessment & Plan (05/01/2021 11:39 AM CDT): Continue with care per [facility] Has pending sleep eval that she will keep rf meds as needed Assessment & Plan (09/25/2020 3:07 PM CDT): Retrieve records from [facility], continue care same at this time. Essential hypertension 09/25/2020 Assessment & Plan (06/03/2021 6:58 PM CUSTOMER ACQUISITION MANAGER): Add daily hctz Discontinue inderal Advised monitoring bp with goal 120-130/80 Assessment & Plan (05/01/2021 11:39 AM CDT): Stable, continue meds same at this time Assessment & Plan (09/25/2020 3:06 PM CDT): Stable, continue medication same at this time Fasting labs entered, will notify patient of results as available Insomnia 09/25/2020 Knee pain 09/25/2020 Assessment & Plan (10/09/2021 12:08 PM CDT): Encouraged continued attempts at weight loss Will refer to ortho and PT for further evaluation and treatment Acne 09/25/2020 Assessment & Plan (09/25/2020 3:06 PM CDT): She will change to cetaphil or noncomedogenic wash bid. She will apply retin a at hs x 7 days. She will f/u if not improving. Chronic sinusitis 11/29/2018 Numbness and tingling in left arm 11/29/2018 Bulging of cervical intervertebral disc 09/28/19 19 Chronic left shoulder pain 09/27/2018 Assessment & Plan (06/20/2021 11:44 AM CUSTOMER ACQUISITION MANAGER): Will refer to closer orthopedist for her commute Gastroesophageal reflux disease 09/27/2018 Iron deficiency 09/27/2018 Primary osteoarthritis of both knees 09/27/2018 Vitamin D deficiency 09/27/2018 Assessment & Plan (09/25/2020 3:06 PM CDT): Fasting labs entered, will notify patient of results as available Asthma 10/19/2017 11/05/2022 Acute sinusitis 10/19/2017 11/05/2022 Resolved Problems Problem Noted Date Diagnosed Date Resolved Date Class 3 severe obesity due t o excess calories with serious comorbidity and body mass index (BMI) of 50.0 to 59.9 in adult 11/05/2022 4 Assessment & Plan (12/08/2023 8:19 AM CDT): Discussed the patient's BMI. The BMI is above average. BMI management plan is completed. BMI Follow-up includes: nutrition counseling, exercise counseling and education provided. Assessment & Plan (08/11/2023 8:47 AM CUSTOMER ACQUISITION MANAGER): Discussed the patient's BMI. The BMI is above average. BMI management plan is completed. BMI Follow-up includes: nutrition counseling, exercise counseling and education provided. BMI 60.0-69.9, adult 11/05/2022 023 Assessment & Plan (11/05/2022 10:08 AM CDT): Discussed the patients BMI: The BMI is above average BMI management is complete. BMI follow-up includes: Nutrition Counseling and education provided Class 3 severe obesity with serious comorbidity and body mass index (BMI) of 60.0 to 69.9 in adult 10/09/2021 01/19/2022 Assessment & Plan (01/01/2022 6:42 PM CDT): The BMI is above average. BMI management plan is completed. BMI Follow-up includes: nutrition counseling, exercise counseling and education provided. Assessment & Plan (12/03/2021 8:19 PM CDT): Discussed the patient's BMI. The BMI is above average. BMI management plan is completed. BMI Follow-up includes: nutrition counseling, exercise counseling and education provided. Assessment & Plan (10/09/2021 12:08 PM CDT): Obesity is unchanged. Discussed the patient's BMI. The BMI is above average. BMI management plan is completed. BMI Follow-up includes: nutrition counseling, exercise counseling and education provided. Encounter for well woman clifton silveira with routine gynecological exam 08/01/2021 09/08/2021 Assessment & Plan (08/01/2021 9:58 AM CUSTOMER ACQUISITION MANAGER): Due for screening and wants to see [facility] (her previous MD has left the area). Will refer to Dr. Barreto for further assistance. Mare, right 06/20/2021 01/19/2022 Assessment & Plan (06/20/2021 11:43 AM CUSTOMER ACQUISITION MANAGER): Will start on doxycycline Morbid obesity 06/20/2021 01/19/2022 Assessment & Plan (08/01/2021 9:57 AM CUSTOMER ACQUISITION MANAGER): Obesity is unchanged. Discussed the patient's BMI. The BMI is above average. BMI management plan is completed. BMI Follow-up includes: nutrition counseling, exercise counseling and education provided. Assessment & Plan (06/20/2021 11:43 AM CUSTOMER ACQUISITION MANAGER): Obesity is unchanged. Discussed the patient's BMI. The BMI is above average. BMI management plan is completed. BMI Follow-up includes: nutrition counseling, exercise counseling and education provided. Non-recurrent acute suppurat chaya otitis media of right ear without spontaneous rupture of tympanic membrane 05/01/2021 06/02/2021 Acute non-recurrent pansinusitis 01/13/2021 01/19/2022 Assessment & Plan (01/01/2022 6:44 PM CDT): Advised starting antibiotic. Advised f/u in next week if not improving, sooner if worsening. Assessment & Plan (06/20/2021 11:44 AM CUSTOMER ACQUISITION MANAGER): Advised increased fluids, rest F/u in 1w if not improving, sooner if worsening Assessment & Plan (01/13/2021 9:22 AM CDT): She will continue with her nose spray per communication consultant She will hold the mdp and not start unless her symptoms worsen She will let us know if symptoms are not improving or if they worsen over the next week Exacerbation of intermittent asthma 12/16/2020 01/19/2022 Assessment & Plan (12/16/2020 11:30 AM CDT): Retrieve records from the ER. Advised to 6 minute walk today, however she declines at this time. Will refer to pulmonology for further evaluation and treatment. She will finish medication from the ER. Encounter for screening mamm ogram for malignant neoplasm of breast 12/16/2020 01/19/2022 Assessment & Plan (12/16/2020 11:30 AM CDT): Advised screening mammogram, she was given copy of order so she can call and schedule. Encounter to establish care 09/25/2020 06/02/2021 Assessment & Plan (09/25/2020 3:06 PM CDT): Retrieve records from previous pcp Weight gain 09/25/2020 12/03/2021 Assessment & Plan (09/25/2020 3:06 PM CDT): Fasting labs entered, will notify patient of results as available Advised and encouraged attempts at weight loss. She is reconsidering pursuing bariatric surgery, will let us know if we can be of assistance. BMI 60.0-69.9, adult 09/27/201801/19/2 022 Assessment & Plan (10/09/2021 12:08 PM CDT): Obesity is unchanged. Discussed the patient's BMI. The BMI is above average. BMI management plan is completed. BMI Follow-up includes: nutrition counseling, exercise counseling and education provided. Assessment & Plan (06/03/2021 7:00 PM CUSTOMER ACQUISITION MANAGER): Obesity is unchanged. Discussed the patient's BMI. The BMI is above average. BMI management plan is completed. BMI Follow-up includes: nutrition counseling, exercise counseling and education provided. Assessment & Plan (01/13/2021 9:22 AM CDT): She was advised weight loss. She was offered referral to [facility] bariatrics and declines at this time. Assessment & Plan (12/16/2020 9:48 AM CDT): Obesity is unchanged. Discussed the patient's BMI. The BMI is above average. BMI management plan is completed. BMI Follow-up includes: nutrition counseling, exercise counseling and education provided. Immunizations Immunization Administration Dates Next Due Influenza, Quadrivalent, Rec ombinant, Egg Free, Preservative Free, Intramuscular 03/29/2020 Influenza, Quadrivalent, Spl it, Intramuscular 03/30/2019,04/17/2015,04/17/2015 Influenza, Quadrivalent, Spl it, Preservative Free, Intramuscular 06/09/2023,05/01/2021,09/27/2018 Influenza, Trivalent, Preser vative Free, Intramuscular 05/02/2024,10/16/2014,10/16/2014 Influenza, Unspecified 04/07/2023(Deferr ed: Patient Refused),04/08/2022 Pfizer SARS-CoV-2 Monovalent Vaccination (12+ Yrs) PURPLE 11/28/2020,11/26/2020,11/26/2020,11/07,11/07/2020 Pneumococcal Polysaccharide PPV23 11/06/2021 Tdap 01/06/2016 Social History Tobacco Use Types Packs/Day Years Used Date Smoking Tobacco: Never Smokeless Tobacco: Never Tobacco Cessation:Counseling Given: Not Answered AUDIT-C Answer Date Recorded Q1: How often do you have a drink containing alc ohol? Never 10/09/2021 Average Number of Drinks Not on file 022 Q3: How often do you have si x or more drinks on one occasion? Never 10/09/2021 PHQ-2 Answer Date Recorded PHQ-2 Total Score (If total score is 3 or more points, staff should administer the PHQ-9) 0 05/02/2024 Exercise Vital Sign Answer Date Recorde d On average, how many days pe r week do you engage in moderate to strenuous exercise (like a brisk walk)? 0 days 04/02/2021 On average, how many minutes do you engage in exercise at this level? 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 Not on file Not on file Last Filed Vital Signs Vital Sign Reading Time Taken Comments Blood Pressure 120/76 05/02/2024 7:17 AM CDT Pulse 92 05/02/2024 7:17 AM CDT Temperature 36.9 C (98.4 F) 05/02/2024 7:17 AM CDT Respiratory Rate 16 06/09/2023 9:13 AM CUSTOMER ACQUISITION MANAGER Oxygen Saturation 96% 05/02/2024 7:17 AM CDT Inhaled Oxygen Concentration - - Weight 137 kg (302 lb) 05/02/2024 7:17 AM CDT Height 160 cm (5' 3 ) 05/02/2024 7:17 AM CDT Body Mass Index 53.5 05/02/2024 7:17 AM CDT Plan of Treatment Not on file Procedures Procedure Name Priority Date/Time Associated Diagnosis Comments HEPATITIS PANEL, ACUTE Routine 01/20/2022 9:29 AM CDT Encounter for annual routine gynecological examination Screening for STD (sexually transmitted disease) MAMMOGRAPHY Routine 10/10/2021 from Last 3 Months or Most Recently Relevant to Health Maintenance Results * Hepatitis panel, acute (01/20/2022 9:29 AM CDT) Hep A IgM Nonreactive Nonreactive NAOMIE PFEIFFER Comment: Interpretive Data: If Hep A IgM Ab is reported as Equivocal, a new sample should be drawn in two weeks for testing. Current interpretive data was last revised on 19. Hep B core IgM Nonreactive Nonreactive NAOMIE Comment: Interpretive Data If HepB Core IgM Ab is reported as Equivocal, a new sample should be drawn in two weeks for testing. Current interpretive data was last revised on 19. Hep C Ab Nonreactive Nonreactive NAOMIE Comment: Interpretive Data Nonreactive: Antibodies to HCV not detected. Does NOT exclude the possibility of recent exposure to HCV. Equivocal: Equivocal for HCV antibodies. Supplemental molecular testing will be automatically performed to determine infection status in accordance with current CDC screening recommendations. Reactive: Positive for HCV antibodies. This may represent current or past HCV infection. Supplemental molecular testing will be automatically performed to determine current infection status in accordance with current CDC screening recommendations. Interpretive data was last revised on 2019. HepBsAg Nonreactive Nonreactive NAOMIE Blood 01/20/2022 9:29 AM CDT 01/20/2022 7:16 PM CDT us Christy Newman NP LAB MICROBIOLOGY - GENERAL ORDER HERVE Final Result Performing Organization Address City/State/[facility] Co de Phone Number NAOMIE [address] [facility] [place] [address] * MAMMOGRAPHY (10/10/2021) us Historical Provider HEALTH MAINTENANCE Final Result from Last 3 Months or Most Recently Relevant to Health Maintenance Insurance [facility] MEDICARE ADVANTAGE [facility] MED[employer] ADVANTAGE Care Teams Piling Cutter Relationship Specialty Start Date End Date Marilyn Augustin NP [address] [facility] [address] [place] [address] PCP - General Internal Medicine 11/05/22
--- OUTSIDE RECORDS SUMMARY | 2024-10-31 08:44 | XMS_ITS | Encounter Summary ---
Author Organization [facility] Health Address [facility] [place] [address] Care Team Providers Care Photographer Apprentice Lithographic Name Role Phone Doreen Mae APRN-ALLIANCE DIRECTOR Primary Care Provider + Celia Carson PA-C Primary Care Provider + Reason for Visit * Reason Onset Date Comments MEDICATION REFILL 02/27/2019 MEDICATION REFILL 03/28/2019 Encounter Details Date Type Department Care Team (Late st Contact Info) Description 02/27/2019 Refill [facility] General Internal Medicine [address] [id number] Doreen Mae, ASHLEY-ALLIANCE DIRECTOR [address] OF [facility] [place] [address] MEDICATION REFILL; MEDICATION REFILL Social History Tobacco Use Types Packs/Day Years [...] encounter Miscellaneous Notes * Telephone Encounter - Yumi Jordan - 02/27/2019 8:02 AM CDT Refill request sent per protocol to provider PAMELLA 11-29-18 NOV 01-24-19 ?? documented in this encounter Plan of Treatment Not on file documented as of this encounter Visit Diagnoses Diagnosis Primary osteoarthritis of both knees Primary localized osteoarthrosis, lower leg documented in this encounter Care Teams Photographer Apprentice Lithographic Relationship Specialty Start Date End Date Doreen Mae, DENTAL PATIENT COORDINATOR-ALLIANCE DIRECTOR [facility] [place] [address] PCP - General Nurse Practitioner 09/27/18 12/03/20 Celia Carson PA-C [facility] [place] [address] PCP - General 12/04/20 documented as of this encounter
--- OUTSIDE RECORDS SUMMARY | 2024-10-31 08:44 | XMS_ITS ---
Author Organization [facility] [place] ([address]) Address [address] [place] [address] Care Team Providers Care Tub Chucker Name Role Phone Yannick Glasgow Unavailable [phone] Michael Gleason Unavailable Unavailable REASON FOR VISIT Asthma follow-up: currently managed by Dr. Gleason. Currently on Spiriva, Advair, Singulair, and Tezspire per Dr. Bunch though no longer follows. Currently running of of tx Recently intubated March 2023 due to respiratory failure. Currently on Tezspire but in need of refills. Last dose in July, follow- up; continues allergy avoidance, on meds, and considering SCIT, Recurrent sinus infections multiple times a year; PI work-up with inadequate protection to Hib and S. pnuemo. Vitamin D also low. Recently completed Vitamin D 50K weekly, Recently with increased bloating - set to f/u withGI Medications Medication SIG (Take, Route, Frequency, Duration) Notes Start Date End Date Status BUSPIRONE 10 mg 1 tab(s) orally 2 times a day Not-Taking Tezspire 210 MG/1.91ML as directed Subcutaneous once for 28 days Active Trelegy Ellipta 200-62.5-25 MCG/ACT 1 puff Inhalation Once a day for 30 days Active FLUTICASONE NASAL 50 mcg/inh 1 spray(s) in each nostril once a day Not-Taking AZELASTINE NASAL 137 mcg/inh 2 spray(s) intranasally 2 times a day Not-Taking BUDESONIDE-FORMOTEROL 160 mcg-4.5 mcg/inh 2 puff(s) inhaled 2 times a day Not-Taking OMEPRAZOLE 40 mg 1 cap(s) orally once a day Not-Taking ALBUTEROL 90 mcg/inh 2 puff(s) inhaled every 6 hours Active SPIRIVA RESPIMAT 1.25 mcg/inh 2 puff(s) inhaled once a day Active MONTELUKAST 10 mg 1 tab(s) orally once a day Active FERROUS SULFATE Not- Taking MUPIROCIN TOPICAL 2% 1 sara applied topically 3 times a day Not-Taking SYMBICORT 160 mcg-4.5 mcg/inh 2 puff(s) inhaled 2 times a day Not-Taking ADVAIR HFA 230 mcg-21 mcg 2 puff(s) inhaled 2 times a day Active NASAL WASHES N/A as directed intranasally as needed for 30 days Active CETIRIZINE 10 mg 1 tab(s) orally once a day for 30 days Active EPIPEN 2-LEELA 0.3 mg as directed intramuscularly once for 30 days 4 Not-Taking AZELASTINE NASAL 137 mcg/inh 2 spray(s) intranasally 2 times a day for 30 days Active FLUTICASONE NASAL 50 mcg/inh 2 spray(s) in each nostril twice a day for 30 days Active AZELASTINE NASAL 137 mcg/inh 2 spray(s) intranasally 2 times a day for 30 day(s) 4 Not-Taking busPIRone HCl 10 MG 1 tab(s) orally 2 times a day Not-Taking PNEUMOVAX 23 - 0.5 mL intramuscularly once for 1 dose(s) Not-Taking FLUTICASONE NASAL 50 mcg/inh 2 spray(s) in each nostril BID for 30 day(s) 4 Not-Taking ACTHIB (HIB) - 0.5 mL intramuscularly once for 1 dose(s) Not-Taking CETIRIZINE 10 mg 1 tab(s) orally once a day for 30 days 4 Not-Taking Montelukast Sodium 10 MG 1 tab(s) orally once a day Not-Taking Advair HFA 230 MCG-21 MCG 2 PUFF(S) INHALED 2 TIMES A DAY *Please review and pick correct strength-formul ation from Medispan options. If intended option is not shown, discontinue and re-order from Quick Search* Not-Taking Spiriva Respimat 1.25 MCG/ACT 2 puff(s) inhaled once a day Not-Taking Amoxicillin-Pot Clavulanate 875-125 MG 1 tablet Orally every 12 hrs for 10 days Not-Taking Amitriptyline HCl 25 MG TAKE 1 TABLET BY MOUTH ONCE NIGHTLY Oral for 90 Days Active Omeprazole 40 MG 1 cap(s) orally once a day Active Ferrous Sulfate *Please review and pick correct strength-formul ation from Invenshure options. If intended option is not shown, discontinue and re-order from Quick Search* Active Torsemide 20 MG 1 tab(s) orally once a day Active hydroCHLOROthiazide 12.5 MG 1 cap(s) orally once a day Active Baclofen 10 MG 1 tab(s) orally 3 times a day Active EpiPen 2-Leela 0.3 MG/0.3ML as directed intramuscularly once for 30 days 4 Active Fluticasone Propionate 50 MCG/ACT 2 spray(s) in each nostril twice a day for 30 days Active Albuterol Sulfate HFA 108 (90 Base) MCG/ACT 2 puff(s) inhaled every 6 hours Active Fluconazole 150 MG 1 tablet Orally once then another 72 hours later for 2 days Active Cetirizine HCl 10 MG 1 tab(s) orally once a day for 30 days Active Azelastine HCl 137 MCG/SPRAY 2 spray(s) intranasally 2 times a day Not-Taking TEZSPIRE PRE-FILLED PEN ekko 210 mg/1.91 mL as directed subcutaneously every 4 weeks Not-Taking D3-50 1250 mcg 1 cap(s) orally once a week for 60 days Not-Taking Pneumovax 23 - 0.5 ML INTRAMUSCULARLY ONCE for 1 DOSE(S) *Please review and pick correct strength-formul ation from Invenshure options. If intended option is not shown, discontinue and re-order from Quick Search* 4 Not-Taking D3-50 1250 MCG 1 CAP(S) ORALLY ONCE A WEEK for 60 DAYS *Please review and pick correct strength-formul ation from Invenshure options. If intended option is not shown, discontinue and re-order from Quick Search* 4 Not-Taking Fluticasone Propionate 50 MCG/ACT 1 spray(s) in each nostril once a day Not-Taking Mupirocin 2 % 1 sara applied topically 3 times a day Not-Taking Budesonide-Formoterol Fumarate 160-4.5 MCG/ACT 2 puff(s) inhaled 2 times a day Not-Taking Symbicort 160-4.5 MCG/ACT 2 puff(s) inhaled 2 times a day Not-Taking Azelastine HCl 137 MCG/SPRAY 2 spray(s) intranasally 2 times a day for 30 days Not-Taking Vitamin D3 125 MCG (5000 UT) 1 capsule Orally Once a day for 30 day(s) Active TORSEMIDE 20 mg 1 tab(s) orally once a day Not-Taking HYDROCHLOROTHIAZIDE 12.5 mg 1 cap(s) orally once a day Not-Taking BACLOFEN 10 mg 1 tab(s) orally 3 times a day Not-Taking Encounters Encounter Location Date Provider Diagnosis [facility] [address] [address] 10/10/2024 Yannick Glasgow Allergic rhinitis du e to pollen J30.1 ; Severe persistent asthma, uncomplicated J45.50 ; Allergic rhinitis due to animal (cat) (dog) hair and dander J30.81 ; Other allergic rhinitis J30.89 ; Other chronic allergic conjunctivitis H10.45 ; Vitamin D deficiency, unspecified E55.9 ; Essential (primary) hypertension I10 and Chronic sinusitis, unspecified J32.9 Assessments Encounter Date Diagnosis (ICD Code) Assessment Notes Treatment Notes Treatment Clinical Notes Section Notes 10/10/2024 Allergic rhinitis due to pollen (ICD-10 - J30.1) Angie clearly suffers from atopic disease based upon our skin testing and clinical history. Accordingly, we have introduced a new, aggressive medication regimen, discussed nasal washes and allergy-specific avoidance measures. She is considering SCIT at this time. Also with unsure history of nasal polyps which would likely benefit from SCIT. She does not feel SCIT is vaible at this time due to ongoing complications in her personal life at the moment. 10/10/2024 Severe persistent asthma, uncomplicated (ICD-10 - J45.50) She was formally diagnosed with Asthma at age 37 with first telephone solicitor. At the time she was experiencing SOB and wheezing after exposure to mold. First three years I was in a hospital all the time. Prior to starting Tezspire, she was in the hospital every three months. Since diagnosis, reports being on steroids up to twelve times a year. She is currently treated with Singulair, Trelegy, and Tezspire. Previously managed by Dr. Tim. She was hospitalized in January 2023 for asthma exacerbation, treated with neb, Solu-Medrol, and azithromycin. She was again hospitalized 03/2023 resulting in intubation x 4 days due to hypoxia and hypercarb respiratory failure. Since starting Tezspire, she is only using O2 at bedtime. She started Tezspire in January 2023 with Bhutto with clear subjective benefit. She has since switched to Dr. Gleason for care who does not prescribe Tezspire. Spirometry was performed at initial visit showing severe obstruction. Currently with auth for Tezspire through he end of the year. Will refill today. Given severe prior history, would highly advised observation in office after dosing. Last Tezspire dose was in July. She feels Trelegy from last vist has been of comparable benefit. Continue use of OSMAR with spacer. Consider SCIT as above. Tezspire tolerated today without issue. Return in 4 weeks for Tezspire dosing 10/10/2024 Allergic rhinitis due to animal (cat) (dog) hair and dander (ICD-10 - J30.81) Follow allergen avoidance, meds and consider SCIT as an adjunctive treatment to current regimen 10/10/2024 Other allergic rhinitis (ICD-10 - J30.89) Follow allergen avoidance, meds and consider SCIT as an adjunctive treatment to current regimen 10/10/2024 Other chronic allergic conjunctivitis (ICD-10 - H10.45) Given ocular signs and symptoms I encouraged allergy avoidance measures and meds as above. If symptoms persist, consider adding additional medications including intraocular antihistamine/mas t cell stabilizer, PRN and consider SCIT as an adjunctive measure 10/10/2024 Vitamin D deficiency, unspecified (ICD-10 - E55.9) She has since finished 50K IU weekly. Plan to start 5K daily 10/10/2024 Essential (primary) hypertension (ICD-10 - I10) BP elevated today without symptoms of urgency or emergency. Continue serial checks and follow-up with PCP 10/10/2024 Chronic sinusitis, unspecified (ICD-10 - J32.9) Recurrent sinus infections requiring abx multiple times a year meeting JMF criteria for modified PID work-up. Showing inadequate protection to S. pnumo and Hib. Advised obtianing boosters though would like to hold off given recent bloating 10/10/2024 Other Plan Of Treatment Medication Medication Name Sig Start Date Stop Date Notes Tezspire 210 MG/1.91ML as directed Subcu taneous once for 28 days Trelegy Ellipta 200-62.5-25 MCG/ACT 1 puff Inhalation Once a day for 30 days ALBUTEROL 90 mcg/inh 2 puff(s) inhaled e very 6 hours SPIRIVA RESPIMAT 1.25 mcg/inh 2 puff(s) inhaled once a day MONTELUKAST 10 mg 1 tab(s) orally once a day ADVAIR HFA 230 mcg-21 mcg 2 puff(s) inha led 2 times a day NASAL WASHES N/A as directed intranas ally as needed for 30 days CETIRIZINE 10 mg 1 tab(s) orally once a day for 30 days AZELASTINE NASAL 137 mcg/inh 2 spray(s) intranasally 2 times a day for 30 days FLUTICASONE NASAL 50 mcg/inh 2 spray(s) in each nostril twice a day for 30 days Vitamin D3 125 MCG (5000 UT) 1 capsule O rally Once a day for 30 day(s) Treatment Notes Assessment Notes Allergic rhinitis due to pollen Angie guzman suffers from atopic disease based upon our skin testing and clinical history. Accordingly, we have introduced a new, aggressive medication regimen, discussed nasal washes and allergy-specific avoidance measures. She is considering SCIT at this time. Also with unsure history of nasal polyps which would likely benefit from SCIT. She does not feel SCIT is vaible at this time due to ongoing complications in her personal life at the moment. Severe persistent asthma, uncomplicated She was formally diagnosed with Asthma at age 37 with first telephone solicitor. At the time she was experiencing SOB and wheezing after exposure to mold. First three years I was in a hospital all the time. Prior to starting Tezspire, she was in the hospital every three months. Since diagnosis, reports being on steroids up to twelve times a year. She is currently treated with Singulair, Trelegy, and Tezspire. Previously managed by Dr. Tim. She was hospitalized in January 2023 for asthma exacerbation, treated with neb, Solu-Medrol, and azithromycin. She was again hospitalized 03/2023 resulting in intubation x 4 days due to hypoxia and hypercarb respiratory failure. Since starting Tezspire, she is only using O2 at bedtime. She started Tezspire in January 2023 with Bhutto with clear subjective benefit. She has since switched to Dr. Gleason for care who does not prescribe Tezspire. Spirometry was performed at initial visit showing severe obstruction. Currently with auth for Tezspire through he end of the year. Will refill today. Given severe prior history, would highly advised observation in office after dosing. Last Tezspire dose was in July. She feels Trelegy from last vist has been of comparable benefit. Continue use of OSMAR with spacer. Consider SCIT as above. Tezspire tolerated today without issue. Return in 4 weeks for Tezspire dosing Allergic rhinitis due to ani mal (cat) (dog) hair and dander Follow allergen avoidance, meds and consider SCIT as an adjunctive treatment to current regimen Other allergic rhinitis Follow allergen avoidance, meds and consider SCIT as an adjunctive treatment to current regimen Other chronic allergic conjunctivitis Gi lisa ocular signs and symptoms I encouraged allergy avoidance measures and meds as above. If symptoms persist, consider adding additional medications including intraocular antihistamine/mast cell stabilizer, PRN and consider SCIT as an adjunctive measure Vitamin D deficiency, unspecified She quintana s since finished 50K IU weekly. Plan to start 5K daily Essential (primary) hypertension BP elev ated today without symptoms of urgency or emergency. Continue serial checks and follow-up with PCP Chronic sinusitis, unspecified Recurrent sinus infections requiring abx multiple times a year meeting JMF criteria for modified PID work-up. Showing inadequate protection to S. pnumo and Hib. Advised obtianing boosters though would like to hold off given recent bloating Next Appt Details Follow Up: 4 Weeks, Reason: Evaluation and Management,TEZSPIRE Administration Progress Notes * Kary LEOSB:1970 (54 yo F)Acc No.[id number]:10/10/2024 TEZSPIRE Only Patient: Vaughn Angie TAYLOR Provider: Lisa Glasgow PA-C :1970 A ge:54 Y S ex:Female Date:10/10/2024 Address:[address] [place], [place] [id number] Subjective: * Chief Complaints: * 1 . Asthma follow-up: currently managed by Dr. Gleason. Currently on Spiriva, Advair, Singulair, and Tezspire per Dr. Bunch though no longer follows. Currently running of of tx Recently intubated March 2023 due to respiratory failure. Currently on Tezspire but in need of refills. Last dose in July. 2. ARC follow-up; continues allergy avoidance, on meds, and considering SCIT. 3. Recurrent sinus infections multiple times a year; PI work-up with inadequate protection to Hib and S. pnuemo. Vitamin D also low. Recently completed Vitamin D 50K weekly. 4. Recently with increased bloating - set to f/u with GI. * HPI: * Introduction: I had the pleasure of seeing Enriqueta Leos, a 54 y/o female with history of HTN, chronic hypoxic respiratory failure on 2L PRN, GEORGE, Athma, ARC and fibromyalgia returning in consultation with Dr. Gleason, Regulatory Attorney, for interval evaluation and management; ready to continue Tezspire. She is alone for today's visit. She was formally diagnosed with Asthma at age 37 with first telephone solicitor. At the time she was experiencing SOB and wheezing after exposure to mold. First three years I was in a hospital all the time. Prior to starting Tezspire, she was in the hospital every three months. Since diagnosis, reports being on steroids up to twelve times a year. She is currently treated with Singulair, Advair, Spiriva, and Tezspire. Previously managed by Dr. Tim though no longer following. In need of new RX to continue Tezspire which she has historically responded well to. She was hospitalized in January 2023 for asthma exacerbation, treated with neb, Solu-Medrol, and azithromycin. She was again hospitalized 03/2023 resulting in intubation x 4 days due to hypoxia and hypercarb respiratory failure. Since starting Tezspire, she is only using O2 at bedtime. She started Tezspire in January [address] Bunch with clear subjective benefit. She has since switched to Dr. Gleason for care who does not prescribe Tezspire. She was t cobyg doing at home at the time. She does have a nebulizer. She has only needed steroids once in the past year. Her last dose of Tezspire was in July with a few month gap priro due to in the family. She will have recurrent sinus infections, more than twice a year. She used to go to ENT with prior sinus surgeries. Unsure if she has had polyps. PI work-up showed inadequate protection to S. pneumo and Hib, Also with low Vitamin D and has completed 50K IU weekly x 8 weeks. Yet to obtain boosters. S kin testing was completed at first visit, and was positive to multiple seasonal and perennial allergens. She has recurrent itchy eyes, runny nose, and sinus congestion. Treating with Z yrtec, Flonase, and Azelastine with benefit. She has a cat at home without symptoms. Otherwise notes both parents have seasonal allergies. She is considering SCIT. She also reports history of food sticking occurring with rice and pasta. Otherwise with noted history of b loody stools. [facility]. T alice, she reports no fevers, chills, night sweats or other constitutional symptoms. The patient is here for scheduled immunotherapy with TEZSPIRE. Please see the attached specialty form regarding the specifics of the administration of this medication. As per our protocol, they must undergo a screening health questionnaire (medication changes, reaction(s) to last immunotherapy dose(s), current health status, ACT (if appropriate), self-injectable epinephrine on patient(?) and peak flow (if appropriate)). A [facility] follow-up: Asthma Control Test (Adult - Age 12 and older) I n the past 4 weeks, how much of the time did your asthma keep you from getting as much done at work, school or at home? S ome of the time (3) D uring the past 4 weeks, how often have you had shortness of breath? A little of the time (4) D uring the past 4 weeks, how often did your asthma symptoms (wheezing, coughing, shortness of breath, chest tightness or pain) wake you up at night or earlier than usual in the morning? O nce a week (3) D uring the past 4 weeks, how often have you used your rescue inhaler or nebulizer medication (such as albuterol)? N ot at all (5) H ow would you rate your asthma control during the past 4 weeks? W ell controlled (4) T otal Score: (minimum = 5, maximum = 25; Sum of all 5 questions above)) 1 9 * ROS: A LLERGY: Positive p er the HPI and history, otherwise unremarkable.?runny nose Y es. s cratchy throat Y es. i tchy eyes Y es. e ar fullness?No. s inus congestion Y es. S PECIAL SENSES: Positve for n one. c ataracts N o. g laucoma?Yes. l oss of hearing N o. i tching in ears Y es. r inging in ears Y es.?loss of balance N o. l oss of smell Y es. d ry eyes Y es. e xcessive tearing N o. l oss of taste N o. c onjunctivitis N o. e ar infections N o.? C ONSTITUTIONAL: weight gain Y es. l oss of appetite N o. f ever?No. w eakness Y es. w eight loss Y es. f atigue Y es. n ight sweats N o. P ositive for n one. E NT: cold N o. c ough Y es. e pistaxis N o. h earing loss N o. c hange in voice Y es. s ore throat N o. r inging in ears?Yes. s inus pain N o. P ositive p er the HPI and history, otherwise unremarkable. R ESPIRATORY: shortness of breath N o. c hest pain N o. c hest congestion N o. c ough Y es. P ositive p er the HPI and history, otherwise unremakable. O PHTHALMOLOGY: diminished vision Y es. e ye irritation N o. d rainage from eyes Y es. b lurring of vision Y es. s easonal eye sx N o. P ositive for p er the HPI and history, otherwise unremarkable. i tching Y es. s ensitivity to light N o. d ischarge Y es. w atering N o. r edness N o. ? E NDOCRINOLOGY: fatigue Y es. p olydipsia Y es. p olyuria Y es. w eight loss Y es. s leep disturbance Y es. c old intolerance N o. h eat intolerance Y es. d iabetes N o. P ositive for n one. C ARDIOLOGY: chest pain N o. p alpitations N o. l eg edema?Yes. d izziness N o. s hortness of breath Y es. P ositive for n one.? G ASTROENTEROLOGY: abdominal pain Y es. n ausea N o. v omiting?No. c onstipation N o. d iarrhea N o. b lood in stool Y es. i ndigestion Y es. h emorrhoids Y es. P ositive for n one. U ROLOGY: difficulty urinating N o. b lood in urine N o. f requent urination Y es. u rinary incontinence N o. r ecurrent UTI N o. P ositive for n one. D ERMATOLOGY: rash Y es. l umps N o. d ry or sensitive skin?No. h mega (urticaria) N o. a cne N o. s kin cancer N o. P ositive for p er the HPI and history, otherwise unremakable. N EUROLOGY: tingling numbness Y es. s eizures N o. i nsomnia Y es. m jet loss N o. d izziness N o. g ait abnormality Y es. P ositive for n one. H EMATOLOGY/LYMPH: Positive for n one. M USCULOSKELETAL: joint swelling Y es. j oint pain Y es. l eg cramps Y es. j oint stiffness Y es. s ciatica Y es. o steoporosis Y es.?carpal tunnel Y es. P ositive for n one. P SYCHOLOGY: high stress level Y es. d epression Y es. s leep disturbances Y es. s uicidal ideation N o. e ating disorder N o. m ental or physical abuse N o. a nxiety Y es. P ositive for n one. F EMALE REPRODUCTIVE: heavy periods N o. h ot flashes N o. a bnormal vaginal discharge N o. s exually active N o. i nfertility N o. f requent yeat infections Y es. p elvic pain Y es. b reast pain N o. n ipple discharge No. A re you ? N o. A re you planning on a future pregancy? N o. ? A ll other review of systems per the HPI and history, otherwise unremarkable. * Medical History: * Medications: T aking Tezspire 210 MG/1.91ML Solution Prefilled Syringe as directed Subcutaneous once , Taking Fluconazole 150 MG Tablet 1 tablet Orally once then another 72 hours later , Taking Cetirizine HCl 10 MG Tablet 1 tab(s) orally once a day , Taking Fluticasone Propionate 50 MCG/ACT Suspension 2 spray(s) in each nostril twice a day , Taking Albuterol Sulfate HFA 108 (90 Base) MCG/ACT Aerosol Solution 2 puff(s) inhaled every 6 hours , Taking EpiPen 2-Leela 0.3 MG/0.3ML Solution Auto-injector as directed intramuscularly once , Taking Ferrous Sulfate , Notes to Pharmacist: *Please review and pick correct strength-formulation from Invenshure options. If intended option is not shown, discontinue and re-order from Quick Search*, Taking Omeprazole 40 MG Capsule Delayed Release 1 cap(s) orally once a day , Taking hydroCHLOROthiazide 12.5 MG Capsule 1 cap(s) orally once a day , Taking Baclofen 10 MG Tablet 1 tab(s) orally 3 times a day , Taking Torsemide 20 MG Tablet 1 tab(s) orally once a day , Taking Amitriptyline HCl 25 MG Tablet TAKE 1 TABLET BY MOUTH ONCE NIGHTLY Oral , Taking Vitamin D3 125 MCG (5000 UT) Capsule 1 capsule Orally Once a day , Not- Taking/PRN CETIRIZINE 10 mg tablet 1 tab(s) orally once a day , Not-Taking/PRN FLUTICASONE NASAL 50 mcg/inh spray 2 spray(s) in each nostril twice a day , Not-Taking/PRN AZELASTINE NASAL 137 mcg/inh spray 2 spray(s) intranasally 2 times a day , Not-Taking/PRN NASAL WASHES N/A 1 quart of sterilized tap water or distilled water, 1 tsp NaCl, 1 pinch of baking soda as directed intranasally as needed , Not-Taking/PRN ADVAIR HFA 230 mcg-21 mcg aerosol 2 puff(s) inhaled 2 times a day , Not-Taking/PRN SPIRIVA RESPIMAT 1.25 mcg/inh aerosol 2 puff(s) inhaled once a day , Not-Taking/PRN ALBUTEROL 90 mcg/inh aerosol 2 puff(s) inhaled every 6 hours , Not-Taking/PRN MONTELUKAST 10 mg tablet 1 tab(s) orally once a day , Not-Taking/PRN Trelegy Ellipta 200-62.5-25 MCG/ACT Aerosol Powder Breath Activated 1 puff Inhalation Once a day , Not-Taking/PRN Amoxicillin-Pot Clavulanate 875-125 MG Tablet 1 tablet Orally every 12 hrs , Not-Taking/PRN Advair HFA 230 MCG-21 MCG AEROSOL 2 PUFF(S) INHALED 2 TIMES A DAY , Notes to Pharmacist: *Please review and pick correct strength-formulation from Invenshure options. If intended option is not shown, discontinue and re-order from Quick Search*, Not-Taking/PRN Spiriva Respimat 1.25 MCG/ACT Aerosol Solution 2 puff(s) inhaled once a day , Not-Taking/PRN Montelukast Sodium 10 MG Tablet 1 tab(s) orally once a day , Not-Taking/PRN busPIRone HCl 10 MG Tablet 1 tab(s) orally 2 times a day , Not-Taking/PRN PNEUMOVAX 23 - solution 0.5 mL intramuscularly once , Not- Taking/PRN ACTHIB (HIB) - powder for injection 0.5 mL intramuscularly once , Not-Taking/PRN CETIRIZINE 10 mg tablet 1 tab(s) orally once a day , Not-Taking/PRN FLUTICASONE NASAL 50 mcg/inh spray 2 spray(s) in each nostril BID , Not-Taking/PRN AZELASTINE NASAL 137 mcg/inh spray 2 spray(s) intranasally 2 times a day , Not-Taking/PRN EPIPEN 2- LEELA 0.3 mg kit as directed intramuscularly once , Not-Taking/PRN SYMBICORT 160 mcg-4.5 mcg/inh aerosol 2 puff(s) inhaled 2 times a day , Not-Taking/PRN FERROUS SULFATE , Not-Taking/PRN MUPIROCIN TOPICAL 2% ointment 1 sara applied topically 3 times a day , Not-Taking/PRN OMEPRAZOLE 40 mg delayed release capsule 1 cap(s) orally once a day , Not-Taking/PRN BUDESONIDE-FORMOTEROL 160 mcg-4.5 mcg/inh aerosol 2 puff(s) inhaled 2 times a day , Not-Taking/PRN BUSPIRONE 10 mg tablet 1 tab(s) orally 2 times a day , Not-Taking/PRN FLUTICASONE NASAL 50 mcg/inh spray 1 spray(s) in each nostril once a day , Not-Taking/PRN AZELASTINE NASAL 137 mcg/inh spray 2 spray(s) intranasally 2 times a day , Not-Taking/PRN HYDROCHLOROTHIAZIDE 12.5 mg capsule 1 cap(s) orally once a day , Not-Taking/PRN BACLOFEN 10 mg tablet 1 tab(s) orally 3 times a day , Not-Taking/PRN TORSEMIDE 20 mg tablet 1 tab(s) orally once a day , Not- Taking/PRN Azelastine HCl 137 MCG/SPRAY Solution 2 spray(s) intranasally 2 times a day , Not-Taking/PRN Symbicort 160-4.5 MCG/ACT Aerosol 2 puff(s) inhaled 2 times a day , Not-Taking/PRN Mupirocin 2 % Ointment 1 sara applied topically 3 times a day , Not-Taking/PRN Budesonide-Formoterol Fumarate 160-4.5 MCG/ACT Aerosol 2 puff(s) inhaled 2 times a day , Not-Taking/PRN Fluticasone Propionate 50 MCG/ACT Suspension 1 spray(s) in each nostril once a day , Not-Taking/PRN Azelastine HCl 137 MCG/SPRAY Solution 2 spray(s) intranasally 2 times a day , Not-Taking/PRN Pneumovax 23 - SOLUTION 0.5 ML INTRAMUSCULARLY ONCE , Notes to Pharmacist: *Please review and pick correct strength-formulation from Medispan options. If intended option is not shown, discontinue and re-order from Quick Search*, Not-Taking/PRN D3-50 1250 MCG CAPSULE 1 CAP(S) ORALLY ONCE A WEEK , Notes to Pharmacist: *Please review and pick correct strength-formulation from Medispan options. If intended option is not shown, discontinue and re-order from Quick Search*, Not-Taking/PRN TEZSPIRE PRE-FILLED PEN ekko 210 mg/1.91 mL solution as directed subcutaneously every 4 weeks , Not-Taking/PRN D3-50 1250 mcg capsule 1 cap(s) orally once a week Objective: * Vitals: * Examination: G eneral examination: General appearance: p leasant, well-developed, well-nourished, female, in no apparent distress. HEENT: p upils equal, round, and reactive to light and accommodation, conjunctiva are injected bilaterally, no tenderness to palpation of the sinuses, TM's without evidence of acute infection, turbinates 2+ swollen and pale inferiorly bilaterally, clear rhinorrhea is present, no polyps noted, no septal perforation, posterior oropharynx is erythematous and cobblestoning is present, erythema on pharyngeal wall, no exudates, no tongue swelling, and uvula is midline. Oral cavity: n ormal, no lesions. Neck, thyroid : s upple, non-tender, no anterior cervical lymphadenopathy. Breasts : n ot performed. Heart: R RR, S1-S2, no murmurs, no rubs, no gallops. Lungs: c lear to auscultation and percussion in all lung uriostegui, no wheezes or crackles. Abdomen: s oft, NT/ND, normal active bowel sounds. Neurologic exam: u nremarkable. Skin: n ormal, no rash, dermatographism, urticaria, angioedema. Peripheral pulses: n ormal (2+) bilaterally. Back: n ormal. Extremities: n ormal ROM, no clubbing, no cyanosis, no edema. Genitalia: n ot performed. Assessment: * Assessment: 1. S evere persistent asthma, uncomplicated - J45.50 (Primary) 2 . A llergic rhinitis due to pollen - J30.1 3 . A llergic rhinitis due to animal (cat) (dog) hair and dander - J30.81 4 . O ther allergic rhinitis - J30.89 5. O ther chronic allergic conjunctivitis - H10.45 6 . V itamin D deficiency, unspecified - E55.9 7 . E ssential (primary) hypertension - I10 ?8. C hronic sinusitis, unspecified - J32.9 Plan: * Treatment: 2. A llergic rhinitis due to pollen Continue CETIRIZINE tablet, 10 mg, 1 tab(s), orally, once a day, 30 days, 30, Refills 0; C ontinue FLUTICASONE NASAL spray, 50 mcg/inh, 2 spray(s), in each nostril, twice a day, 30 days, Refills 0; C ontinue AZELASTINE NASAL spray, 137 mcg/inh, 2 spray(s), intranasally, 2 times a day, 30 days, 1, Refills 0; C ontinue NASAL WASHES 1 quart of sterilized tap water or distilled water, 1 tsp NaCl, 1 pinch of baking soda, N/A, as directed, intranasally, as needed, 30 days, Refills 0. Notes: Angie clearly suffers from atopic disease based upon our skin testing and clinical history. Accordingly, we have introduced a new, aggressive medication regimen, discussed nasal washes and allergy-specific avoidance measures. She is considering SCIT at this time. Also with unsure history of nasal polyps which would likely benefit from SCIT. She does not feel SCIT is vaible at this time due to ongoing complications in her personal life at the moment. 3. A llergic rhinitis due to animal (cat) (dog) hair and dander Notes: Follow allergen avoidance, meds and consider SCIT as an adjunctive treatment to current regimen 4. O ther allergic rhinitis Notes: Follow allergen avoidance, meds and consider SCIT as an adjunctive treatment to current regimen 5. O ther chronic allergic conjunctivitis Notes: Given ocular signs and symptoms I encouraged allergy avoidance measures and meds as above. If symptoms persist, consider adding additional medications including intraocular antihistamine/mast cell stabilizer, PRN and consider SCIT as an adjunctive measure 6. V itamin D deficiency, unspecified Start Vitamin D3 Capsule, 125 MCG (5000 UT), 1 capsule, Orally, Once a day, 30 day(s), 30. ? Notes: She has since finished 50K IU weekly. Plan to start 5K daily 7. E ssential (primary) hypertension Notes: BP elevated today without symptoms of urgency or emergency. Continue serial checks and follow-up with PCP 8. C hronic sinusitis, unspecified Notes: Recurrent sinus infections requiring abx multiple times a year meeting JMF criteria for modified PID work-up. Showing inadequate protection to S. pnumo and Hib. Advised obtianing boosters though would like to hold off given recent bloating * Procedure Codes: 9 6160 PT-FOCUSED HLTH RISK ASSMT, G8427 DOC MEDS VERIFIED W/PT OR RE, G9522 TOT #ED VST&IP=/>2 12 M/[place], [address] THER/PROPH/DIAG INJ, SC/IM * Preventive Medicine: Counseling: M edication instruction: W atch for side effects of prescribed medications, Nasal steroid/antihistamine instruction: avoid septum. E ducation: G ENERAL EDUCATION: Our staff spent an additional 30 minutes in direct contact with the patient educating them on their current diagnoses and proper treatment and prevention of symptoms and the proper use of medications. E ducation 2: A RC EDUCATION: Our staff discussed the appropriate allergen avoidance measures and medication utilization including upper airway hygiene with daily nasal washes given the patient's clinical status and diagnoses. SCIT EDUCATION: Discussed allergy immunotherapy including the relative risks, benefits and alternatives to this treatment as an adjunctive measure to current therapy, Allergy Immunotherapy: Risks: bleeding, infection, allergic reaction, anaphylaxis = severe allergic reaction that can cause ; Benefits: reduced need for medications, improved symptoms, disease modification. Alternatives: watch/wait, change medication regimen, improve allergy avoidance measures, Our staff discussed the warning signs of anaphylaxis and the indications to use self-injectable epinephrine and seek urgent or emergent care. P atient education material sent to portal? Y es C are goal follow up plan BMI management provided Y es Above Normal BMI Follow-up D ietary management education, guidance, and counseling B P Management: PRE-HYPERTENSIVE FOLLOW-UP PLAN: F ollow-up 1 month FIRST HYPERTENSIVE BP READING FOLLOW-UP PLAN: F ollow-up 1 month REFERRAL TO ALTERNATIVE / PRIMARY CARE PROVIDER: Carin de jesusal to general practitioner * Follow Up: 4 Weeks (Reason: Evaluation and Management,TEZSPIRE Administration) * Billing Information: * Visit Code: 25833 Office Visit, Est Pt., Level 4. Modifiers: 25 * Procedure Codes: 59780 PT-FOCUSED HLTH RISK ASSMT. G8427 DOC MEDS VERIFIED W/PT OR RE. G9522 TOT #ED VST&IP=/>2 12 M/[place]. [address] THER/PROPH/DIAG INJ, SC/IM. * Electronic signature of Octavio Glasgow PA-C on 10/31/2024 at 08:44 AM CDT Sign off status: Pending * Provider: Lisa Glasgow PA-C Date: 0 10/10/2024 Generated for Max hernandez/Erinn/eTpraveen on: 0 10/31/2024 08:44 AM CDT History and Physical Notes * HPI (History of Present Illness) Category Sub-Category Detail Notes Category Notes *Introduction I had the pleasure of seeing Angie Leos, a 54 y/o female with history of HTN, chronic hypoxic respiratory failure on 2L PRN, GEORGE, Athma, ARC and fibromyalgia returning in consultation with Dr. Gleason, Regulatory Attorney, for interval evaluation and management; ready to continue Tezspire. She is alone for today's visit. She was formally diagnosed with Asthma at age 37 with first telephone solicitor. At the time she was experiencing SOB and wheezing after exposure to mold. First three years I was in a hospital all the time. Prior to starting Tezspire, she was in the hospital every three months. Since diagnosis, reports being on steroids up to twelve times a year. She is currently treated with Singulair, Advair, Spiriva, and Tezspire. Previously managed by Dr. Tim though no longer following. In need of new RX to continue Tezspire which she has historically responded well to. She was hospitalized in January 2023 for asthma exacerbation, treated with neb, Solu-Medrol, and azithromycin. She was again hospitalized 03/2023 resulting in intubation x 4 days due to hypoxia and hypercarb respiratory failure. Since starting Tezspire, she is only using O2 at bedtime. She started Tezspire in January [address] Bunch with clear subjective benefit. She has since switched to Dr. Gleason for care who does not prescribe Tezspire. She was taking doing at home at the time. She does have a nebulizer. She has only needed steroids once in the past year. Her last dose of Tezspire was in July with a few month gap priro due to in the family. She will have recurrent sinus infections, more than twice a year. She used to go to ENT with prior sinus surgeries. Unsure if she has had polyps. PI work-up showed inadequate protection to S. pneumo and Hib, Also with low Vitamin D and has completed 50K IU weekly x 8 weeks. Yet to obtain boosters. Skin testing was completed at first visit, and was positive to multiple seasonal and perennial allergens. She has recurrent itchy eyes, runny nose, and sinus congestion. Treating with Zyrtec, Flonase, and Azelastine with benefit. She has a cat at home without symptoms. Otherwise notes both parents have seasonal allergies. She is considering SCIT. She also reports history of food sticking occurring with rice and pasta. Otherwise with noted history of bloody stools. Follows with ERASMO henry in search of a new provider. Today, she reports no fevers, chills, night sweats or other constitutional symptoms The patient is here for scheduled immunotherapy with TEZSPIRE. Please see the attached specialty form regarding the specifics of the administration of this medication. As per our protocol, they must undergo a screening health questionnaire (medication changes, reaction(s) to last immunotherapy dose(s), current health status, ACT (if appropriate), self-injectable epinephrine on patient(?) and peak flow (if appropriate)). Asthma follow-up Asthma Control Test (Adult - Age 12 and older) In the past 4 weeks, how much of the time did your asthma keep you from getting as much done at work, school or at home?: Some of the time (3) During the past 4 weeks, how often have you had shortness of breath?: A little of the time (4) During the past 4 weeks, how often did your asthma symptoms (wheezing, coughing, shortness of breath, chest tightness or pain) wake you up at night or earlier than usual in the morning?: Once a week (3) During the past 4 weeks, how often have you used your rescue inhaler or nebulizer medication (such as albuterol)?: Not at all (5) How would you rate your asth ma control during the past 4 weeks?: Well controlled (4) Total Score: (minimum = 5, maximum = 25; Sum of all 5 questions above)): 19 Examination Category Sub-Category Detail Notes Category Not es General examination HEENT: pupils equal , round, and reactive to light and accommodation, conjunctiva are injected bilaterally, no tenderness to palpation of the sinuses, TM's without evidence of acute infection, turbinates 2+ swollen and pale inferiorly bilaterally, clear rhinorrhea is present, no polyps noted, no septal perforation, posterior oropharynx is erythematous and cobblestoning is present, erythema on pharyngeal wall, no exudates, no tongue swelling, and uvula is midline Neck, thyroid : supple, non-tender, no anterior cervical lymphadenopathy Heart: RRR, S1-S2, no murmu rs, no rubs, no gallops Lungs: clear to auscultatio n and percussion in all lung uriostegui, no wheezes or crackles Abdomen: soft, NT/ND, normal active bowel sounds Extremities: normal ROM, no clubb ing, no cyanosis, no edema General appearance: pleasant, well-devel oped, well-nourished, female, in no apparent distress Skin: normal, no rash, sarah matographism, urticaria, angioedema Neurologic exam: unremarkable Oral cavity: normal, no lesions Breasts : not performed Peripheral pulses: normal (2+) bilatera lly Back: normal Genitalia: not performed
--- OUTSIDE RECORDS SUMMARY | 2024-10-31 08:44 | XMS_ITS | Encounter Summary ---
Author Organization [facility] Health Address [facility] [place] [address] Care Team Providers Care Associate Entertainment Editor Name Role Phone Doreen Mae APRN-MAINTENANCE SUPERVISOR ELECTRICAL Primary Care Provider + Celia Carson PA-C Primary Care Provider + Reason for Visit * Reason Onset Date Comments MEDICATION REFILL 02/20/2019 MEDICATION REFILL 02/27/2019 Encounter Details Date Type Department Care Team (Late st Contact Info) Description 02/20/2019 Refill [facility] [address] [address] Doreen Mae, ASHLEY-MAINTENANCE SUPERVISOR ELECTRICAL [address] OF [facility] [place] [address] MEDICATION REFILL; MEDICATION REFILL Social History Tobacco [...] * Telephone Encounter - Yumi Jordan - 02/20/2019 8:39 AM CDT Refill request sent per protocol to provider PAMELLA 11-29-18 NOV 01-24-19 ?? documented in this encounter Plan of Treatment Not on file documented as of this encounter Visit Diagnoses Diagnosis Anxiety and depression Dysthymic disorder documented in this encounter Care Teams Associate Entertainment Editor Relationship Specialty Start Date End Date Doreen Mae, MUCK FARMER-MAINTENANCE SUPERVISOR ELECTRICAL [facility] [place] [address] PCP - General Nurse Practitioner 09/27/18 12/03/20 Celia Carson PA-C [facility] [place] [address] PCP - General 12/04/20 documented as of this encounter
--- OUTSIDE RECORDS SUMMARY | 2024-10-31 08:44 | XMS_ITS | Encounter Summary ---
Author Organization [facility] Health Address [facility] [place] [address] Care Team Providers Care Block Splitter Operator Name Role Phone Doreen Mae APRN-DIE CUTTING MACHINE OPERATOR Primary Care Provider + Celia Carson PA-C Primary Care Provider + Reason for Visit * Reason Onset Date Comments MEDICATION REFILL 01/23/2019 MEDICATION REFILL 02/20/2019 Encounter Details Date Type Department Care Team (Late st Contact Info) Description 01/23/2019 Refill [facility] [address] [address] Doreen Mae, ASHLEY-DIE CUTTING MACHINE OPERATOR [address] OF [facility] [place] [address] MEDICATION REFILL; MEDICATION REFILL Social History Tobacco [...] * Telephone Encounter - Yumi Jordan - 01/23/2019 10:25 AM CDT Refill request sent per protocol to provider PAMELLA 11-29-18 NOV 01-24-19 documented in this encounter Plan of Treatment Not on file documented as of this encounter Visit Diagnoses Diagnosis Vitamin D deficiency documented in this encounter Care Teams Block Splitter Operator Relationship Specialty Start Date End Date Doreen Mae, CLERICAL ASSISTANT-DIE CUTTING MACHINE OPERATOR [address] [place] [address] PCP - General Nurse Practitioner 09/27/18 12/03/20 Celia Carson PA-C [facility] [place] [address] PCP - General 12/04/20 documented as of this encounter
--- OUTSIDE RECORDS SUMMARY | 2024-10-31 08:44 | XMS_ITS ---
Author Organization [facility] [place] ([address]) Address [address] [place] [address] Care Team Providers Care Tracer Clerk Name Role Phone UgoYannick mohr Unavailable [phone] Michael Gleason Unavailable Unavailable Amy Chopra Unavailable [phone] REASON FOR VISIT TEZSPIRE Encounters Encounter Location Date Provider Diagnosis [facility] [address] [place] [address] 08/31/2024 Amy Chopra Plan Of Treatment No Information Progress Notes * Kary LEOSB:1970 (54 yo F)Acc No.[id number]:08/31/2024 TEZSPIRE Adiministration Vis it Patient: Vaughn BRANDON Angie Provider: BARBARA Londono :1970 A ge:54 Y S ex:Female Date:08/31/2024 Address:[address] [place], [place] [id number] Subjective: * Chief Complaints: * 1 . TEZSPIRE. * Medical History: Objective: * Vitals: Assessment: Plan: * Treatment: * Billing Information: * Visit Code: * Procedure Codes: * Electronic signature of BARBARA Roberts on 10/31/2024 at 08:44 AM CDT Sign off status: Pending * Provider: JANETH LondonoP- Date: 0 08/31/2024 Generated for Max hernandez/Erinn/Isidro on: 0 10/31/2024 08:44 AM CDT
--- OUTSIDE RECORDS SUMMARY | 2024-10-31 08:44 | XMS_ITS | Clinical Summary ---
Author Organization [facility] [id number] [facility] Address [address] [place] [address] Care Team Providers Care Machine Applicator Cementer Name Role Phone Marilyn Augustin NP Primary Care Provider [phone] Allergies Active Allergy Reactions Criticality Noted Date [...] 06/09/2023 Assessment & Plan (06/09/2023 9:42 AM MANAGER VALIDATION): This is a significant, separately identifiable problem [...] 5:30 PM CDT): She has appt with chainer pending that she will keep Trigger ring [...] 8:21 PM CDT): Has pending referral to chainer that she will keep Will evaluate further [...] 08/01/2021 Assessment & Plan (08/01/2021 9:59 AM MANAGER VALIDATION): Resume prn torsemide. We discussed if using routinely will need bun/cr and K levels drawn in the next 3-4w. She anticipates 1-2x/week but will let us know if increasing to daily. Leg pain, bilateral 08/01/2021 Assessment & Plan (08/01/2021 9:59 AM MANAGER VALIDATION): Will evaluate further with US of bilateral legs Elevated antinuclear antibody (RODRIGO) level 2020 Assessment & Plan (10/09/2021 12:09 PM CDT): Will restart cymbalta We reviewed autoimmune labs, will refer to rheumatology Assessment & Plan (08/01/2021 9:57 AM MANAGER VALIDATION): Has pending lab work for Dr. Bunch that she will complete She reports when she called her insurance she was told that there might be a provider in network for [facility] - will try a different location. Assessment & Plan (06/20/2021 11:43 AM MANAGER VALIDATION): We reviewed recent labs Will refer to rheum for further evaluation and treatment Pulmonary artery hypertension 06/03/2021 Assessment & Plan (08/01/2021 9:56 AM MANAGER VALIDATION): Continue care with pulmonology Advised her to reschedule with cardiology Assessment & Plan (06/20/2021 11:43 AM MANAGER VALIDATION): Continue with hctz daily Assessment & Plan (06/03/2021 7:01 PM MANAGER VALIDATION): Advised attempts at bp control Will refer to cv for further evaluation and treatment Chronic neck pain 06/03/2021 Assessment & Plan (06/20/2021 11:43 AM MANAGER VALIDATION): Will refer to closer orthopedist for her commute Assessment & Plan (06/03/2021 7:00 PM MANAGER VALIDATION): Advised referral to specialist, will help her arrange Cervical radiculopathy 06/03/2021 Assessment & Plan (06/03/2021 7:00 PM MANAGER VALIDATION): Advised referral, will help her arrange Need [...] provided. Assessment & Plan (06/09/2023 9:18 AM MANAGER VALIDATION): Discussed the patient's BMI. The BMI is [...] provided. Assessment & Plan (08/01/2021 9:57 AM MANAGER VALIDATION): Obesity is unchanged. Discussed the patient's BMI. The BMI is above average. BMI management plan is completed. BMI Follow-up includes: nutrition counseling, exercise counseling and education provided. Assessment & Plan (06/20/2021 11:43 AM MANAGER VALIDATION): Obesity is unchanged. Discussed the patient's BMI. [...] 5:31 PM CDT): We reviewed notes from english drawer. She is going to call her current oxygen company and order a current supply as she is not certain she can walk down the hallway in the hospital for her 6min walk. She will communicate with the english drawer regarding these concerns. Assessment & Plan (01/01/2022 6:43 PM CDT): Continue with oxygen, she reports that she has refills at home. Assessment & Plan (12/03/2021 8:20 PM CDT): Continue care per pulmonology, refill meds as needed Assessment & Plan (10/09/2021 12:08 PM CDT): Continue with care per pulmonology Continue with bpap Assessment & Plan (08/01/2021 9:57 AM MANAGER VALIDATION): Continue with care per Dr. Bunch Assessment & Plan (06/03/2021 7:00 PM MANAGER VALIDATION): Continue with care per pulm Assessment & Plan (05/01/2021 11:39 AM CDT): Continue with care per english drawer Has pending sleep eval that she will keep rf meds as needed Assessment & Plan (09/25/2020 3:07 PM CDT): Retrieve records from english drawer, continue care same at this time. Essential hypertension 09/25/2020 Assessment & Plan (06/03/2021 6:58 PM MANAGER VALIDATION): Add daily hctz Discontinue inderal Advised monitoring [...] 09/27/2018 Assessment & Plan (06/20/2021 11:44 AM MANAGER VALIDATION): Will refer to closer orthopedist for her [...] provided. Assessment & Plan (08/11/2023 8:47 AM MANAGER VALIDATION): Discussed the patient's BMI. The BMI is [...] education provided. Encounter for well woman [facility] m with routine gynecological exam 08/01/2021 09/08/2021 Assessment & Plan (08/01/2021 9:58 AM MANAGER VALIDATION): Due for screening and wants to see chainer (her previous MD has left the area). Will refer to Dr. Barreto for further assistance. Otalgia, right 06/20/2021 01/19/2022 Assessment & Plan (06/20/2021 11:43 AM MANAGER VALIDATION): Will start on doxycycline Morbid obesity 06/20/2021 01/19/2022 Assessment & Plan (08/01/2021 9:57 AM MANAGER VALIDATION): Obesity is unchanged. Discussed the patient's BMI. The BMI is above average. BMI management plan is completed. BMI Follow-up includes: nutrition counseling, exercise counseling and education provided. Assessment & Plan (06/20/2021 11:43 AM MANAGER VALIDATION): Obesity is unchanged. Discussed the patient's BMI. [...] worsening. Assessment & Plan (06/20/2021 11:44 AM MANAGER VALIDATION): Advised increased fluids, rest F/u in 1w if not improving, sooner if worsening Assessment & Plan (01/13/2021 9:22 AM CDT): She will continue with her nose spray per consulting technical manager She will hold the mdp and not [...] can be of assistance. BMI 60.0-69.9, adult 09/27/2018 0718/2 022 Assessment & Plan (10/09/2021 12:08 PM CDT): Obesity is unchanged. Discussed the patient's BMI. The BMI is above average. BMI management plan is completed. BMI Follow-up includes: nutrition counseling, exercise counseling and education provided. Assessment & Plan (06/03/2021 7:00 PM MANAGER VALIDATION): Obesity is unchanged. Discussed the patient's BMI. The BMI is above average. BMI management plan is completed. BMI Follow-up includes: nutrition counseling, exercise counseling and education provided. Assessment & Plan (01/13/2021 9:22 AM CDT): She was advised weight loss. She was offered referral to [facility] bariatrics and declines at this time. Assessment & Plan (12/16/2020 9:48 AM CDT): Obesity is unchanged. Discussed the patient's BMI. The BMI is above average. BMI management plan is completed. BMI Follow-up includes: nutrition counseling, exercise counseling and education provided. Encounters Date Type Department Care Team Description 10/17/[address] [facility] Family Medicine [address] [address] Marilyn Augustin NP from Last 3 Months Immunizations Immunization Administration Dates Next Due Influenza, Quadrivalent, Rec ombinant, Egg Free, Preservative Free, Intramuscular 03/29/2020 Influenza, Quadrivalent, Spl it, Intramuscular 03/30/2019,04/17/2015,04/17/2015 Influenza, Quadrivalent, Spl it, Preservative Free, Intramuscular 06/09/2023,05/01/2021,09/27/2018 Influenza, Trivalent, Preser vative Free, Intramuscular 05/02/2024,10/16/2014,10/16/2014 Influenza, Unspecified 04/07/2023(Deferr ed: Patient Refused),04/08/2022 Pfizer SARS-CoV-2 Monovalent Vaccination (12+ Yrs) PURPLE 11/28/2020,11/26/2020,11/26/2020,11/07,11/07/2020 Pneumococcal Polysaccharide PPV23 11/06/2021 Tdap 01/06/2016 Surgical History Surgery Date Site/Laterality Comments CARPAL TUNNEL RELEASE Bilateral TUBAL LIGATION SECTION SINUS SURGERY ABLATION Medical History Medical History Date Comments Asthma Arthritis Depression Gastric reflux Osteoarthritis Hypertension Anxiety Sinusitis Family History Medical History Relation Name Comments Cancer Father Breast cancer Maternal Grandmother No Known Problems Mother Relation Name Status Comments Father Alive Maternal Grandmother Mother Alive Social History Tobacco Use Types Packs/Day Years [...] on file Legal Sex Female 1:37 AM MANAGER VALIDATION Gender Identity Not on file Sexual Orientation Not on file 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 on file Not on file Not on file Obstetrics History Para Term AB IAB SAB Ectopic Multiple Livin g Live Births 3 1 1 1 1 1 Date Outcome GA Total Labor Labor/2nd/3rd Weight Sex Type Anes PTL Marycarmen A1 A5 Name Clin Term SAB Last Filed Vital Signs Vital Sign Reading Time Taken Comments Blood Pressure 120/76 05/02/2024 7:17 AM CDT Pulse 92 05/02/2024 7:17 AM CDT Temperature 36.9 C (98.4 F) 05/02/2024 7:17 AM CDT Respiratory Rate 16 06/09/2023 9:13 AM MANAGER VALIDATION Oxygen Saturation 96% 05/02/2024 7:17 AM CDT Inhaled Oxygen Concentration - - Weight 137 kg (302 lb) 05/02/2024 7:17 AM CDT Height 160 cm (5' 3 ) 05/02/2024 7:17 AM CDT Body Mass Index 53.5 05/02/2024 7:17 AM CDT Plan of Treatment Health Maintenance Due Date Last Done Comments Cervical Cancer Screening 1972 Hepatitis B Screening 01/14/1990 Zoster Vaccine (1 of 2) 01/14/2022 Breast Cancer Screening-Mammogram 10/10/2022 10/10/2021, 08/27/2021, 05/02/2019 Pneumococcal vaccine <65 (2 of 2 - PCV) 11/06/2022 11/06/2021 Covid-19 Vaccine (2023-2 5 season) 2024 11/28/2020, 11/26/2020, 11/26/2020, Additional history exists Regular Well Visit/Exam 18-64 12/07/2024, 06/09/2023, 01/20/2022 Depression Screening 05/02/2025 05/02/2024, 12/08/2023, 08/11/2023, Additional history exists DTaP/Tdap/Td Vaccine (2 - Td or Tdap) 01/05/2026 01/06/2016 Colon Cancer Screening-Colonoscopy 03/10/20332022 Hepatitis C Screening Completed 01/20/2022 Influenza Vaccine Completed 05/02/2024, , 04/08/2022, Additional history exists Procedures Procedure Name Priority Date/Time Associated Diagnosis [...] 19. Hep B core IgM Nonreactive Nonreactive [facility] Comment: Interpretive Data If HepB Core IgM Ab is reported as Equivocal, a new sample should be drawn in two weeks for testing. Current interpretive data was last revised on 19. Hep C Ab Nonreactive Nonreactive [facility] Comment: Interpretive Data Nonreactive: Antibodies to HCV [...] last revised on 2019. HepBsAg Nonreactive Nonreactive [facility] Blood 01/20/2022 9:29 AM CDT 01/20/2022 7:16 PM CDT Christy Newman NP LAB MICROBIOLOGY - GENERAL ORDER HERVE Final Result [facility] [address] [facility] [place] [address] * MAMMOGRAPHY (10/10/2021) Historical Provider HEALTH MAINTENANCE Final Result from Last 3 Months or Most Recently Relevant to Health Maintenance Insurance [facility] MEDICARE ADVANTAGE [facility] MEDICARE ADVANTAGE Care Teams Machine Applicator Cementer Relationship Specialty Start Date End Date Marilyn Augustin NP [address] [facility] [address] [place] [address] PCP - General Internal Medicine 11/05/22
--- OUTSIDE RECORDS SUMMARY | 2024-10-31 08:44 | XMS_ITS | Encounter Summary ---
Author Organization [facility] Address [address] [facility] [place] [address] Care Team Providers Care Loom Overhauler Name Role Phone Doreen Mae Primary Care Provider + Celia Carson PA-C Primary Care Provider + Reason for Visit * Reason Onset Date Comments MEDICATION REFILL 03/28/2019 Encounter Details Date Type Department Care Team (Late st Contact Info) Description 03/28/2019 Refill [facility] General Internal Medicine [address] [address] Doreen Mae APRN-CNP [address] [facility] [place] [address] MEDICATION REFILL Social History Tobacco Use Types [...] Telephone Encounter - Doreen Dsouza APRN-CNP - 03/28/2019 9:05 AM CDT Needs appointment. KELLI Hardy * Telephone Encounter - Yumi Jordan - 03/28/2019 8:48 AM CDT Refill request sent per protocol to provider PAMELLA 02-22-19May NONE documented in this encounter Plan of Treatment Not on file documented as of this encounter Visit Diagnoses Diagnosis Primary osteoarthritis of both knees Primary localized osteoarthrosis, lower leg Anxiety and depression Dysthymic disorder documented in this encounter Care Teams Loom Overhauler Relationship Specialty Start Date End Date Doreen Mea APRN-CNP [address] [place] [address] PCP - General Nurse Practitioner 09/27/18 12/03/20 Celia Carson PA-C [facility] [place] [address] PCP - General 12/04/20 documented as of this encounter
--- OUTSIDE RECORDS SUMMARY | 2024-10-31 08:44 | XMS_ITS | Encounter Summary ---
Author Organization [facility] Address [address] [facility] [place] [address] Care Team Providers Care Full Stack Engineer Name Role Phone Doreen Mae APRN-EXAMINATION PROCTOR Primary Care Provider + Celia Carson PA-C Primary Care Provider + Encounter Details Date Type Department Care Team (Late st Contact Info) Description 06/14/2020 Telephone [facility] Pulmonary, Critical Care and Sleep Medicine [address] [place] [address] Smita Lopez MD [address] OF PULMONARY/[place] [address] Social History Tobacco Use Types Packs/Day Years [...] * Telephone Encounter - Nataliia Garcia - 06/14/2020 1:17 PM CST Current Provider name: Dr. Smita Lopez Reason for call: Ms. Angie Leos called in to rscld her 07/12/2019 BUMPED appt. She took first avail, 09/28/2019. She would like to be seen much sooner since she was in hospital for five days prior toThanks. She was in [facility] in [place], [place]. They put her on oxygen and her oxygen levels are low, she said they are about 90, 91. Additionally, her PCP is ordering a HEART ECHO procedure. Please see about an earlier appt and call her. Patient Call Back number: [phone] RNATIONAL LOGISTICS ANALYST documented in this encounter Plan of Treatment Not on file documented as of this encounter Visit Diagnoses Not on filedocumented in this encounter Care Teams Full Stack Engineer Relationship Specialty Start Date End Date Doreen Mae APRN-BANDAR [facility] [place] [address] PCP - General Nurse Practitioner 09/27/18 12/03/20 Celia Carson PA-C [facility] [place] [address] PCP - General 12/04/20 documented as of this encounter
--- OUTSIDE RECORDS SUMMARY | 2024-10-31 08:45 | XMS_ITS | CONTINUITY OF CARE DOCUMENT ---
Author Name [facility]en [facility] Address Unknown Organization [facility] Address [address] [facility] [address] [place] [address] Phone [phone] Care Team Providers Care Revenue Field Agent Name Role Phone Ellie Harrison MD Unavailable Ellie Harrison MD Unavailable [phone] INSURANCE PROVIDERS Payer name Policy type / Coverage type [place] red democrat [place] MEDICAID (2) Medicaid [id number]
--- OUTSIDE RECORDS SUMMARY | 2024-10-31 08:45 | XMS_ITS ---
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 Name Role Phone Yannick Glasgow Unavailable [phone] Michael Gleason Unavailable Unavailable Allergies Allergen (clinical drug ingredient) Drug/Non Drug Allergy documented on EMR Reaction Allergy Type Onset Date Status nickel Nickel other reaction Allergy Activ e REASON FOR VISIT Asthma follow-up: currently managed [...] Duration) Notes Start Date End Date Status Tezspire 210 MG/1.91ML as directed Subcutaneous once for 28 days Active MONTELUKAST 10 mg 1 tab(s) orally once a day Active ALBUTEROL 90 mcg/inh 2 puff(s) inhaled every 6 hours Active Vitamin D3 125 MCG (5000 UT) 1 capsule Orally Once a day for 30 day(s) 02/25/202 5 Active Trelegy Ellipta 200-62.5-25 MCG/ACT 1 puff Inhalation Once a day for 30 days Active ADVAIR HFA 230 mcg-21 mcg 2 puff(s) inhaled 2 times a day Active NASAL WASHES N/A as directed intranasally as needed for 30 days Active AZELASTINE NASAL 137 mcg/inh 2 spray(s) intranasally 2 times a day for 30 days Active SPIRIVA RESPIMAT 1.25 mcg/inh 2 puff(s) inhaled once a day Active D3-50 1250 mcg 1 cap(s) orally once a week for 60 days Not-Taking FLUTICASONE NASAL 50 mcg/inh 2 spray(s) in each nostril twice a day for 30 days Active TEZSPIRE PRE-FILLED PEN ekko 210 mg/1.91 mL as directed subcutaneously every 4 weeks Not-Taking Pneumovax 23 - 0.5 ML INTRAMUSCULARLY ONCE for 1 DOSE(S) *Please review and pick correct strength-formul ation from [email or web address][employer]io options. If intended option is not shown, discontinue and re-order from Quick Search* 4 Not-Taking D3-50 1250 MCG 1 CAP(S) ORALLY ONCE A WEEK for 60 DAYS *Please review and pick correct strength-formul ation from [employer]io options. If intended option is not shown, discontinue and re-order from Quick Search* 4 Not-Taking CETIRIZINE 10 mg 1 tab(s) orally once a day for 30 days Active Symbicort 160-4.5 MCG/ACT 2 puff(s) inhaled 2 times a day Not-Taking Mupirocin 2 % 1 sara applied topically 3 times a day Not-Taking Fluticasone Propionate 50 MCG/ACT 1 spray(s) in each nostril once a day Not-Taking Azelastine HCl 137 MCG/SPRAY 2 spray(s) intranasally 2 times a day Not-Taking Budesonide-Formoterol Fumarate 160-4.5 MCG/ACT 2 puff(s) inhaled 2 times a day Not-Taking TORSEMIDE 20 mg 1 tab(s) orally once a day Not-Taking Azelastine HCl 137 MCG/SPRAY 2 spray(s) intranasally 2 times a day for 30 days Not-Taking HYDROCHLOROTHIAZIDE 12.5 mg 1 cap(s) orally once a day Not-Taking BACLOFEN 10 mg 1 tab(s) orally 3 times a day Not-Taking AZELASTINE NASAL 137 mcg/inh 2 spray(s) intranasally 2 times a day Not-Taking OMEPRAZOLE 40 mg 1 cap(s) orally once a day Not-Taking MUPIROCIN TOPICAL 2% 1 sara applied topically 3 times a day Not-Taking FLUTICASONE NASAL 50 mcg/inh 1 spray(s) in each nostril once a day Not-Taking BUDESONIDE-FORMOTEROL 160 mcg-4.5 mcg/inh 2 puff(s) inhaled 2 times a day Not-Taking BUSPIRONE 10 mg 1 tab(s) orally 2 times a day Not-Taking FERROUS SULFATE Not- Taking EPIPEN 2-LEELA 0.3 mg as directed intramuscularly once for 30 days 4 Not-Taking SYMBICORT 160 mcg-4.5 mcg/inh 2 puff(s) inhaled 2 times a day Not-Taking FLUTICASONE NASAL 50 mcg/inh 2 spray(s) in each nostril BID for 30 day(s) 4 Not-Taking AZELASTINE NASAL 137 mcg/inh 2 spray(s) intranasally 2 times a day for 30 day(s) 4 Not-Taking Torsemide 20 MG 1 tab(s) orally once a day Active ACTHIB (HIB) - 0.5 mL intramuscularly once for 1 dose(s) Not-Taking Amitriptyline HCl 25 MG TAKE 1 TABLET BY MOUTH ONCE NIGHTLY Oral for 90 Days Active CETIRIZINE 10 mg 1 tab(s) orally once a day for 30 days 4 Not-Taking PNEUMOVAX 23 - 0.5 mL intramuscularly once for 1 dose(s) Not-Taking Baclofen 10 MG 1 tab(s) orally 3 times a day Active busPIRone HCl 10 MG 1 tab(s) orally 2 times a day Not-Taking hydroCHLOROthiazide 12.5 MG 1 cap(s) orally once a day Active Ferrous Sulfate *Please review and pick correct strength-formul ation from [email or web address]io options. If intended option is not shown, discontinue and re-order from Quick Search* Active Omeprazole 40 MG 1 cap(s) orally once a day Active Montelukast Sodium 10 MG 1 tab(s) orally once a day Not-Taking EpiPen 2-Leela 0.3 MG/0.3ML as directed intramuscularly once for 30 days Active Spiriva Respimat 1.25 MCG/ACT 2 puff(s) inhaled once a day Not-Taking Albuterol Sulfate HFA 108 (90 Base) MCG/ACT 2 puff(s) inhaled every 6 hours Active Advair HFA 230 MCG-21 MCG 2 PUFF(S) INHALED 2 TIMES A DAY *Please review and pick correct strength-formul ation from Tra[employer]io options. If intended option is not shown, discontinue and re-order from Quick Search* Not-Taking Cetirizine HCl 10 MG 1 tab(s) orally once a day for 30 days Active Fluticasone Propionate 50 MCG/ACT 2 spray(s) in each nostril twice a day for 30 days Active Fluconazole 150 MG 1 tablet Orally once then another 72 hours later for 2 days Active Amoxicillin-Pot Clavulanate 875-125 MG 1 tablet Orally every 12 hrs for 10 days Not-Taking Social History Tobacco Use: Social History Observation Description Date Details (start date - stop date) Never Smoker NA - NA Smoking Smart Form: Question Answer Notes Are you a: never smoker Vital Signs Blood pressure systolic 136 mm Hg 08/29/19 25 Blood pressure diastolic 60 mm Hg 025 Height 63 in 08/29/2024 Weight 331 lbs 08/29/2024 BMI 58.63 kg/m2 08/29/2024 Oximetry 98 % 08/29/2024 Encounters Encounter Location Date Provider Diagnosis [facility] [address] [place] [address] [place] [id number] 08/29/2024 Yannick Glasgow Allergic rhinitis du e to [...] Treatment Notes Treatment Clinical Notes Section Notes 08/29/2024 Allergic rhinitis due to pollen (ICD-10 - [...] in her personal life at the moment. 08/29/2024 Severe persistent asthma, uncomplicated (ICD-10 - J45.50) She was formally diagnosed with Asthma at age 37 with first outside sales account representative. At the time she was experiencing SOB [...] She started Tezspire in January 2023 with Alivia with clear subjective benefit. She has since [...] Return in 4 weeks for Tezspire dosing 08/29/2024 Allergic rhinitis due to animal (cat) (dog) hair and dander (ICD-10 - J30.81) Follow allergen avoidance, meds and consider SCIT as an adjunctive treatment to current regimen 08/29/2024 Other allergic rhinitis (ICD-10 - J30.89) Follow allergen avoidance, meds and consider SCIT as an adjunctive treatment to current regimen 08/29/2024 Other chronic allergic conjunctivitis (ICD-10 - H10.45) Given ocular signs and symptoms I encouraged allergy avoidance measures and meds as above. If symptoms persist, consider adding additional medications including intraocular antihistamine/mas t cell stabilizer, PRN and consider SCIT as an adjunctive measure 08/29/2024 Vitamin D deficiency, unspecified (ICD-10 - E55.9) She has since finished 50K IU weekly. Plan to start 5K daily 08/29/2024 Essential (primary) hypertension (ICD-10 - I10) BP elevated today without symptoms of urgency or emergency. Continue serial checks and follow-up with PCP 08/29/2024 Chronic sinusitis, unspecified (ICD-10 - J32.9) Recurrent sinus infections requiring abx multiple times a year meeting JMF criteria for modified PID work-up. Showing inadequate protection to S. pnumo and Hib. Advised obtianing boosters though would like to hold off given recent bloating 08/29/2024 Other Plan Of Treatment Medication Medication Name Sig Start Date Stop Date Notes Tezspire 210 MG/1.91ML as directed Subcu taneous once for 28 days MONTELUKAST 10 mg 1 tab(s) orally once a day ALBUTEROL 90 mcg/inh 2 puff(s) inhaled e very 6 hours Vitamin D3 125 MCG (5000 UT) 1 capsule O rally Once a day for 30 day(s) 08/29/2024 Trelegy Ellipta 200-62.5-25 MCG/ACT 1 puff Inhalation Once a day for 30 days ADVAIR HFA 230 mcg-21 mcg 2 puff(s) inha led 2 times a day NASAL WASHES N/A as directed intranas ally as needed for 30 days AZELASTINE NASAL 137 mcg/inh 2 spray(s) intranasally 2 times a day for 30 days SPIRIVA RESPIMAT 1.25 mcg/inh 2 puff(s) inhaled once a day FLUTICASONE NASAL 50 mcg/inh 2 spray(s) in each nostril twice a day for 30 days CETIRIZINE 10 mg 1 tab(s) orally once a day for 30 days Treatment Notes Assessment Notes Allergic rhinitis due [...] with Asthma at age 37 with first outside sales account representative. At the time she was experiencing SOB [...] She started Tezspire in January 2023 with Alivia with clear subjective benefit. She has since [...] 4 Weeks, Reason: Evaluation and Management,TEZSPIRE Administration Procedure Notes * Category Sub-Category Detail Notes TEZSPIRE (tezepelumab-ekko) Administration Dosing Time / Vitals See initial vitals Dose Concentration/Dosing : 210 mg (110 mg/mL) / 1.91 mL subcutaneous injection Location , [facility] Reaction None Frequency Interval:: Monthly Lot Number / Expiration Lot Number: [id number], Expiration: 09/01/2026 Post-procedural check-out: Vital signs t aken 30 minutes after dosin% 78P 119/71 Medication Source TEZSPIRE [facility] ([facility]provided) Source Verification:: Yes October. Medical necessity for in-off ice administration The patient or caregiver is not suitable , not competent or is physically unable to administer the TEZSPIRE product for the following reason(s):: lack of suitable supervision and oversight given the risk of hypersensitivty reaction, as listed in the prescribing information Progress Notes * Kary LEOSB:1970 (54 yo F)Acc No.[id number]:08/29/2024 TEZSPIRE Adiministration Vis it Patient: Vaughn BRANDONFreddieAngie Provider: Lisa Glasgow PA-C :1970 A ge:54 Y S ex:Female Date:08/29/2024 Address:[address] [place], [place] [id number] Subjective: * Chief Complaints: * A sthma follow-up: currently managed by Dr. Gleason. Currently on Spiriva, Advair, Singulair, and Tezspire per Dr. Bunch though no longer follows. Currently running of of tx Recently intubated March 2023 due to respiratory failure. Currently on Tezspire but in need of refills. Last dose in JanuaryARC follow-up; continues allergy avoidance, on meds, and considering SCITRecurrent sinus infections multiple times a year; PI work-up with inadequate protection to Hib and S. pnuemo. Vitamin D also low. Recently completed Vitamin D 50K weeklyRecently with increased bloating - set to f/u with GI * HPI: * Introduction: I had the pleasure of seeing Enriqueta Leos, a 54 y/o female with history of HTN, chronic hypoxic respiratory failure on 2L PRN, GEORGE, Athma, ARC and fibromyalgia returning in consultation with Dr. Gleason, Ingot Supervisor, for interval evaluation and management; ready to continue Tezspire. She is alone for today's visit. 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 At the time she was experiencing SOB [...] does not prescribe Tezspire. She was t aking doing at home at the time. She [...] runny nose, and sinus congestion. Treating with Steve yrtec, Flonase, and Azelastine with benefit. She has a cat at home without symptoms. Otherwise notes both parents have seasonal allergies. She is considering SCIT. She also reports history of food sticking occurring with rice and pasta. Otherwise with noted history of b loody stools. Follows with ERASMO henry in search of a new provider. T [...] patient(?) and peak flow (if appropriate)). A [facility] follow-up: Asthma Control Test (Adult - Age [...] history, otherwise unremarkable. * Medical History: * Surgical History: s inus surgery carpal tunnel release Ablation * Hospitalization/Major Diagno stic Procedure: a sthma exacerbation * Family History: F ather: alive, Yes. M other: alive, Yes. S iblings: Yes. C jayden: Yes. 1 daughter(s) - healthy. . * Social History: M arital Status What is your marital status? d ivorced A lcohol Screening Do you ever drink alcoholic beverages? N o S moking Have you ever smoked tobacco: n ever smoked Are you a : n ever smoker S moking Smart Form Are you a: n ever smoker R ecreational drug use Have you ever used recreational drugs? N o D etails on consumption of certain products? Do you regularly consume products with aspartame; Equal or NutraSweet? Y es Do you regularly consume products with artificial coloring??No Have you ever noticed worsening of your rash with these food items? N o E xercise What kind(s) of exercise do you perform regularly? o ther How often do you perform this exercise? e very other day A re any of the following personal care products containing fragrance, dye or preservatives used regularly? Shampoo: Y es Conditioner: Y es Soap: Y es Laundry Detergent: Y es Fabric Softener: Y es Deodorant: Y es Perfume, cologne, after shave: Y es Air freshners or other scented products: N o Hair coloring dyes or rinses: Y es Other: N o O ccupation Are you currenly employed? N o Have you had any job with high exposure to fumes, chemicals, dust or other noxious substances? Y es Are you currently a student? N o E nvironmental History Living environment: w ith pets Where is the home located? c [place] Age of home: 2 5 How long have you lived there? 0 -1 years H ome description Basement: Y es Any water damage in basement? N o Smokers in the home? N o Smokers outside the home? N o Air Conditioning? Y es Central Air? Y es Forced air heating? Y es Gas or electric? e lectric Fireplace? N o Wood burning stove? N o Do you vacuum the home? Y es Air purification systems? N o Pillow and mattress dust-proof encasings? N o Do you use a humidifier? Y es Whole house or room? w hole house humidifier Does it have a humidistat? N o Is it used year-round, seasonal, or as needed? a s needed Is the humidifier cleaned regularly? Y es Do you own any pets? Y es What kind(s)? (click all that apply) c ats Where do your pets sleep? a nywhere in the house Fabric softeners used? Y es Plants in the home? N o Is there carpeting in your bedroom? Y es Age of carpet? 5 Do you have [id number] carpeting? Y es What is the age of your carpeting? 5 What is the age of your mattress (years)? 4 What material(s) are used to manufacture your bedding and pillow? n atural fiber (e.g. cotton) What is the age of your pillow (years)? 2 What material are your bedding items made of? n atural fiber (e.g. cotton) Do you sleep with quilts or blankets or a duvet? Y es What material? n atural fiber (e.g. cotton) How many cats? 1 * Medications: T akingTrelegy Ellipta 200-62.5-25 MCG/ACT Aerosol Powder Breath Activated 1 puff Inhalation Once a day Fluconazole 150 MG Tablet 1 tablet Orally once then another 72 hours later Tezspire 210 MG/1.91ML Solution Prefilled Syringe as directed Subcutaneous once Cetirizine HCl 10 MG Tablet 1 tab(s) orally once a day Fluticasone Propionate 50 MCG/ACT Suspension 2 spray(s) in each nostril twice a day Albuterol Sulfate HFA 108 (90 Base) MCG/ACT Aerosol Solution 2 puff(s) inhaled every 6 hours EpiPen 2-Leela 0.3 MG/0.3ML Solution Auto-injector as directed intramuscularly once Ferrous Sulfate , Notes to Pharmacist: *Please review and pick correct strength-formulation from [employer] options. If intended option is not shown, discontinue and re-order from Quick Search*Omeprazole 40 MG Capsule Delayed Release 1 cap(s) orally once a day hydroCHLOROthiazide 12.5 MG Capsule 1 cap(s) orally once a day Baclofen 10 MG Tablet 1 tab(s) orally 3 times a day Torsemide 20 MG Tablet 1 tab(s) orally once a day Amitriptyline HCl 25 MG Tablet TAKE 1 TABLET BY MOUTH ONCE NIGHTLY Oral Taking Trelegy Ellipta 200-62.5-25 MCG/ACT Aerosol Powder Breath Activated 1 puff Inhalation Once a day Taking Fluconazole 150 MG Tablet 1 tablet Orally once then another 72 hours later Taking Tezspire 210 MG/1.91ML Solution Prefilled Syringe as directed Subcutaneous once Taking Cetirizine HCl 10 MG Tablet 1 tab(s) orally once a day Taking Fluticasone Propionate 50 MCG/ACT Suspension 2 spray(s) in each nostril twice a day Taking Albuterol Sulfate HFA 108 (90 Base) MCG/ACT Aerosol Solution 2 puff(s) inhaled every 6 hours Taking EpiPen 2-Leela 0.3 MG/0.3ML Solution Auto-injector as directed intramuscularly once Taking Ferrous Sulfate , Notes to Pharmacist: *Please review and pick correct strength- formulation from [email or web address]io options. If intended option is not shown, discontinue and re-order from Quick Search*Taking Omeprazole 40 MG Capsule Delayed Release 1 cap(s) orally once a day Taking hydroCHLOROthiazide 12.5 MG Capsule 1 cap(s) orally once a day Taking Baclofen 10 MG Tablet 1 tab(s) orally 3 times a day Taking Torsemide 20 MG Tablet 1 tab(s) orally once a day Taking Amitriptyline HCl 25 MG Tablet TAKE 1 TABLET BY MOUTH ONCE NIGHTLY Oral Not-Taking/PRNAmoxicillin-Pot Clavulanate 875-125 MG Tablet 1 tablet Orally every 12 hrs Advair HFA 230 MCG-21 MCG AEROSOL 2 PUFF(S) INHALED 2 TIMES A DAY , Notes to Pharmacist: *Please review and pick correct strength-formulation from [email or web address]io options. If intended option is not shown, discontinue and re-order from Quick Search*Spiriva Respimat 1.25 MCG/ACT Aerosol Solution 2 puff(s) inhaled once a day Montelukast Sodium 10 MG Tablet 1 tab(s) orally once a day busPIRone HCl 10 MG Tablet 1 tab(s) orally 2 times a day CETIRIZINE 10 mg tablet 1 tab(s) orally once a day FLUTICASONE NASAL 50 mcg/inh spray 2 spray(s) in each nostril twice a day AZELASTINE NASAL 137 mcg/inh spray 2 spray(s) intranasally 2 times a day NASAL WASHES N/A 1 quart of sterilized tap water or distilled water, 1 tsp NaCl, 1 pinch of baking soda as directed intranasally as needed ADVAIR HFA 230 mcg-21 mcg aerosol 2 puff(s) inhaled 2 times a day SPIRIVA RESPIMAT 1.25 mcg/inh aerosol 2 puff(s) inhaled once a day ALBUTEROL 90 mcg/inh aerosol 2 puff(s) inhaled every 6 hours MONTELUKAST 10 mg tablet 1 tab(s) orally once a day PNEUMOVAX 23 - solution 0.5 mL intramuscularly once ACTHIB (HIB) - powder for injection 0.5 mL intramuscularly once CETIRIZINE 10 mg tablet 1 tab(s) orally once a day FLUTICASONE NASAL 50 mcg/inh spray 2 spray(s) in each nostril BID AZELASTINE NASAL 137 mcg/inh spray 2 spray(s) intranasally 2 times a day EPIPEN 2-LEELA 0.3 mg kit as directed intramuscularly once SYMBICORT 160 mcg-4.5 mcg/inh aerosol 2 puff(s) inhaled 2 times a day FERROUS SULFATE MUPIROCIN TOPICAL 2% ointment 1 sara applied topically 3 times a day OMEPRAZOLE 40 mg delayed release capsule 1 cap(s) orally once a day BUDESONIDE-FORMOTEROL 160 mcg-4.5 mcg/inh aerosol 2 puff(s) inhaled 2 times a day BUSPIRONE 10 mg tablet 1 tab(s) orally 2 times a day FLUTICASONE NASAL 50 mcg/inh spray 1 spray(s) in each nostril once a day AZELASTINE NASAL 137 mcg/inh spray 2 spray(s) intranasally 2 times a day HYDROCHLOROTHIAZIDE 12.5 mg capsule 1 cap(s) orally once a day BACLOFEN 10 mg tablet 1 tab(s) orally 3 times a day TORSEMIDE 20 mg tablet 1 tab(s) orally once a day Azelastine HCl 137 MCG/SPRAY Solution 2 spray(s) intranasally 2 times a day Symbicort 160-4.5 MCG/ACT Aerosol 2 puff(s) inhaled 2 times a day Mupirocin 2 % Ointment 1 sara applied topically 3 times a day Budesonide-Formoterol Fumarate 160-4.5 MCG/ACT Aerosol 2 puff(s) inhaled 2 times a day Fluticasone Propionate 50 MCG/ACT Suspension 1 spray(s) in each nostril once a day Azelastine HCl 137 MCG/SPRAY Solution 2 spray(s) intranasally 2 times a day Pneumovax 23 - SOLUTION 0.5 ML INTRAMUSCULARLY ONCE , Notes to Pharmacist: *Please review and pick correct strength-formulation from [employer] options. If intended option is not shown, discontinue and re-order from Quick Search*D3-50 1250 MCG CAPSULE 1 CAP(S) ORALLY ONCE A WEEK , Notes to Pharmacist: *Please review and pick correct strength-formulation from [employer] options. If intended option is not shown, discontinue and re-order from Quick Search*TEZSPIRE PRE-FILLED PEN ekko 210 mg/1.91 mL solution as directed subcutaneously every 4 weeks D3-50 1250 mcg capsule 1 cap(s) orally once a week Medication List reviewed and reconciled with the patientNot-Taking/PRN Amoxicillin-Pot Clavulanate 875-125 MG Tablet 1 tablet Orally every 12 hrs Not-Taking/PRN Advair HFA 230 MCG-21 MCG AEROSOL 2 PUFF(S) INHALED 2 TIMES A DAY , Notes to Pharmacist: *Please review and pick correct strength-formulation from [employer]io options. If intended option is not shown, discontinue and re-order from Quick Search*Not-Taking/PRN Spiriva Respimat 1.25 MCG/ACT Aerosol Solution 2 puff(s) inhaled once a day Not-Taking/PRN Montelukast Sodium 10 MG Tablet 1 tab(s) orally once a day Not-Taking/PRN busPIRone HCl 10 MG Tablet 1 tab(s) orally 2 times a day Not-Taking/PRN CETIRIZINE 10 mg tablet 1 tab(s) orally once a day Not-Taking/PRN FLUTICASONE NASAL 50 mcg/inh spray 2 spray(s) in each nostril twice a day Not-Taking/PRN AZELASTINE NASAL 137 mcg/inh spray 2 spray(s) intranasally 2 times a day Not-Taking/PRN NASAL WASHES N/A 1 quart of sterilized tap water or distilled water, 1 tsp NaCl, 1 pinch of baking soda as directed intranasally as needed Not-Taking/PRN ADVAIR HFA 230 mcg-21 mcg aerosol 2 puff(s) inhaled 2 times a day Not-Taking/PRN SPIRIVA RESPIMAT 1.25 mcg/inh aerosol 2 puff(s) inhaled once a day Not-Taking/PRN ALBUTEROL 90 mcg/inh aerosol 2 puff(s) inhaled every 6 hours Not-Taking/PRN MONTELUKAST 10 mg tablet 1 tab(s) orally once a day Not- Taking/PRN PNEUMOVAX 23 - solution 0.5 mL intramuscularly once Not-Taking/PRN ACTHIB (HIB) - powder for injection 0.5 mL intramuscularly once Not-Taking/PRN CETIRIZINE 10 mg tablet 1 tab(s) orally once a day Not-Taking/PRN FLUTICASONE NASAL 50 mcg/inh spray 2 spray(s) in each nostril BID Not-Taking/PRN AZELASTINE NASAL 137 mcg/inh spray 2 spray(s) intranasally 2 times a day Not-Taking/PRN EPIPEN 2-LEELA 0.3 mg kit as directed intramuscularly once Not-Taking/PRN SYMBICORT 160 mcg-4.5 mcg/inh aerosol 2 puff(s) inhaled 2 times a day Not-Taking/PRN FERROUS SULFATE Not-Taking/PRN MUPIROCIN TOPICAL 2% ointment 1 sara applied topically 3 times a day Not-Taking/PRN OMEPRAZOLE 40 mg delayed release capsule 1 cap(s) orally once a day Not-Taking/PRN BUDESONIDE-FORMOTEROL 160 mcg-4.5 mcg/inh aerosol 2 puff(s) inhaled 2 times a day Not-Taking/PRN BUSPIRONE 10 mg tablet 1 tab(s) orally 2 times a day Not- Taking/PRN FLUTICASONE NASAL 50 mcg/inh spray 1 spray(s) in each nostril once a day Not-Taking/PRN AZELASTINE NASAL 137 mcg/inh spray 2 spray(s) intranasally 2 times a day Not-Taking/PRN HYDROCHLOROTHIAZIDE 12.5 mg capsule 1 cap(s) orally once a day Not-Taking/PRN BACLOFEN 10 mg tablet 1 tab(s) orally 3 times a day Not- Taking/PRN TORSEMIDE 20 mg tablet 1 tab(s) orally once a day Not-Taking/PRN Azelastine HCl 137 MCG/SPRAY Solution 2 spray(s) intranasally 2 times a day Not-Taking/PRN Symbicort 160-4.5 MCG/ACT Aerosol 2 puff(s) inhaled 2 times a day Not-Taking/PRN Mupirocin 2 % Ointment 1 sara applied topically 3 times a day Not-Taking/PRN Budesonide- Formoterol Fumarate 160-4.5 MCG/ACT Aerosol 2 puff(s) inhaled 2 times a day Not-Taking/PRN Fluticasone Propionate 50 MCG/ACT Suspension 1 spray(s) in each nostril once a day Not-Taking/PRN Azelastine HCl 137 MCG/SPRAY Solution 2 spray(s) intranasally 2 times a day Not-Taking/PRN Pneumovax 23 - SOLUTION 0.5 ML INTRAMUSCULARLY ONCE , Notes to Pharmacist: *Please review and pick correct strength-formulation from [email or web address] options. If intended option is not shown, discontinue and re-order from Quick Search*Not-Taking/PRN D3-50 1250 MCG CAPSULE 1 CAP(S) ORALLY ONCE A WEEK , Notes to Pharmacist: *Please review and pick correct strength-formulation from [employer] options. If intended option is not shown, discontinue and re-order from Quick Search*Not-Taking/PRN TEZSPIRE PRE-FILLED PEN ekko 210 mg/1.91 mL solution as directed subcutaneously every 4 weeks Not-Taking/PRN D3-50 1250 mcg capsule 1 cap(s) orally once a week Medication List reviewed and reconciled with the patient * Allergies: N ickel: other reactionno[Allergies Verified] Objective: * Vitals: B P:136/60mm Hg, HR:99/min, Pulse Oximetry:98%, ACT:19, Ht: 63 in, Wt: 331 lbs, BMI:58.63Index. * Examination: G eneral examination: General appearance: [...] to hold off given recent bloating * Procedures: T EZSPIRE (tezepelumab-ekko) Administration: Dosing Time / Vitals S ee initial vitals. Dose C oncentration/Dosing 2 10 mg (110 mg/mL) / 1.91 mL subcutaneous injection Location , [facility]. Reaction N one. Frequency I nterval: M suleman Lot Number / Expiration L ot Number: [id number], Expiration: 09/01/2026. Post-procedural check-out: V ital signs taken 30 minutes after dosin% 78P 119/71. Medication Source T EZSPIRE [facility] (Insurance-provided) S jad Verification: October. Medical necessity for in-chief data officer T he patient or caregiver is not suitable, not competent or is physically unable to administer the TEZSPIRE product for the following reason(s):?lack of suitable supervision and oversight given the risk of hypersensitivty reaction, as listed in the prescribing information * Procedure Codes: 9 6160 PT-FOCUSED HLTH RISK [id number] DOC MEDS VERIFIED W/PT OR [id number] TOT #ED VST&IP=/>2 12 M/NO SCR NO [id number] THER/PROPH/DIAG INJ, SC/IM * Preventive Medicine: Counseling: [...] REFERRAL TO ALTERNATIVE / PRIMARY CARE PROVIDER: R eferral to general practitioner * Follow Up: 4 Weeks (Reason: Evaluation and Management,TEZSPIRE Administration) * Billing Information: * Visit Code: 53457 Office Visit, Est Pt., Level 4. Modifiers: 25 * Procedure Codes: 27693 PT-FOCUSED HLTH RISK ASSMT. G8427 DOC MEDS VERIFIED W/PT OR RE. G9522 TOT #ED VST&IP=/>2 12 M/[place]. [address] THER/PROPH/DIAG INJ, SC/IM. * H GRADER Sign off status: Completed true * Provider: Lisa Glasgow PA-C Date: 0 08/29/2024 Generated for Max hernandez/Erinn/Annieitting on: 0 10/31/2024 08:45 AM CDT History and Physical Notes * HPI (History of Present Illness) Category Sub-Category Detail Notes Category Notes *Introduction I had the pleasure of seeing Angie Leos, a 54 y/o female with history of HTN, chronic hypoxic respiratory failure on 2L PRN, GEORGE, Athma, ARC and fibromyalgia returning in consultation with Dr. Gleason, Ingot Supervisor, for interval evaluation and management; ready to continue Tezspire. She is alone for today's visit. 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 At the time she was experiencing SOB [...]
--- OUTSIDE RECORDS SUMMARY | 2024-10-31 08:45 | XMS_ITS | Data Portability ---
Author Organization [facility] [employer], Main Office Address [address] [place] [address] Assessment No assessment recorded. Plan of Treatment Reminders Order Date Submit Date Provider Last Modified By Organization Details Last Modified Time Details Appointments None recorded. Lab None recorded. Referral None recorded. Procedures colonoscopy screening (PROC) 2022 023 [facility] (Pre-Screen), [address] [place], [address], 11:05:02 Surgeries None recorded. Imaging None recorded. Medication Orders None recorded. Patient TargetsNo targets recorded. Patient Instructions Encounter Date Encounter Id Patient Instructions Last Modified By Organization Details Last Modified Time 02/17/2023 [id number] miralax prep [email or web address] Not available 02/17/2023 15:27:25 PT NEEDS A SCREENING COLON . R/O POLYP . RECOMMEND A COLONOSOPY . Risks benefits and complications were explained to the pt. ( BLEEDING PERFORATION , INFECTION , ). PT VERBALIZES UNDERSTANDING AND IS WILLING TO PROCEDE . [email or web address] Not available 02/17/2023 15:01:15 07/14/2023 [id number] PT WITH BLOOD IN THE STOOL . SX ARE C/W WITH A DIEULAFOY LESION. CALL WITH SX FOR COLONOSCOPY. Not available 07/14/2023 14:37:13 Reason for Referral None Reported. Results Created Date Observation Date Name Description Value Unit Range Abnormal Flag Note LastModifiedBy Organization Detail LastModifiedTime 07/28/19 23 XR, hand, 3 or more view No observ ation record ed. [id number] [facility] [place] [address], [place], [address], 09/02/2022 17:44:29 05/19/20 23 05/19/2023 colon oscop y scree kem (PROC ) No observ ation record ed. [email or web address] [facility] (Pre-Screen) [address] [place], [address], 05/19/2023 11:05:02 Result Notes None recorded. Problems Name Problem SNOMED Code Status Onset Date Resolution Date Notes Provider Name and Address Organization Details Recorded Time Acute sinusitis 20186427 Active 2017 Not Available [facility] 17:43:30 Asthma 550646607 Active 2017 Not Available [facility] 17:43:30 Gastroesop hageal reflux disease 009321208 Active 2017 Not Available [facility] 3 17:43:30 Essential hypertensi on 98099392 Active 2022 GUILHERME Rea [address], [address] , [employer] 3 19:25:12 Allergic rhinitis 67079480 Active 2022 GUILHERME Rea [address], [address] , [employer] 3 19:25:17 Gastroesop hageal reflux disease without esophagiti s 694564088 Active 2022 GUILHERME Rea [address] [address], [place], [address] , [employer] 3 19:25:23 Trigger finger of left hand 5492146231045 9107 Active 2022 GUILHERME Rea [address] [address], [place], [address] , [employer] 3 19:25:32 Mixed anxiety and depressive disorder 155170363 Active 2022 Jadyn Hopper, SOLDERING MACHINE SETTER-C [address], [place], [address] , [place] [facility] 3 19:25:38 Severe persistent asthma 295490106 Active 2022 TANA Rea-C [address], [address], [place], [address] , [place] [facility] 3 19:25:50 Sleep apnea 87365108 Active 2022 TANA Rea-C [address], [address], [place], [address] , [place] [facility] 3 19:25:54 Acne 13492741 Active 2022 TANA Rea-C [address], [address], [place], [address] , [place] [facility] 3 19:26:08 Hypoxia 068565312 Active 2022 GUILHERME Rea [address], [address], [place], [address] , [place] [facility] 3 19:28:23 Bilateral arthritis of knees 0523141437190 108 Active 2022 TANA Rea-C [address], [place], [address] , [place] [facility] 3 19:28:34 Hemat[place]z ia 707163626 Active 2023 Pamela Christianson MD [address], [address], [place], [address] , [place] [facility] 14:00:02 Problem Notes None recorded. Procedures Surgical History Date Name Laterality Status Provider Name and Address Organization Details Recorded Time Sinus Surgery completed Not Available [facility] 09/02/2022 17:42:59 section completed Not Available [facility] 09/02/2022 17:42:59 Tubal Ligation completed Not Available [facility] 09/02/2022 17:42:59 Carpal tunnel completed Not Available [facility] 09/02/2022 17:42:59 Imaging Results Imaging Date Name Status LastModified by Organiz ation Details LastModified Time 07/28/2022 XR, hand, 3 or more view completed [id number] [facility] [place] [address], [place], [address], 09/02/2022 17:44:29 05/19/2023 colonoscopy screening (PROC) completed [email or web address] [facility] (Pre-Screen) [address] [facility], [place], [address], 05/19/2023 11:05:02 Procedure Notes None recorded. Medical Equipment None Reported. Allergies Allergen ID Allergen Name Allergen Category Reaction Reaction Severity Criticality Documentation Date Start Date Code Code System Note Provider Name and Address Organization Details Recorded Time 16800 nickel environme nt itching swelling Not available Not available Not available 09/02/2022 00233 29 RxNorm Not Available [facility] 17:44:27 Medications Name Sig Start Date Stop Date Status Note LastModified by Organization Details LastModified Time amoxicillin 500 mg capsule 01/07 completed Not Available Not Available Not Available bupropion HCl SR 150 mg tablet,12 hr sustained-r elease 01/01 completed Not Available Not Available Not Available nystatin 100,000 unit/mL oral suspension SWISH AND SPIT 5MLS IN MOUTH TWICE DAILY 07/07 completed Not Available Not Available Not Available prednisone 10 mg tablet 01/01 completed Not Available Not Available Not Available doxycycline hyclate 100 mg capsule 07/07 completed Not Available Not Available Not Available cefuroxime axetil 250 mg tablet 01/01 completed Not Available Not Available Not Available ipratropium 0.5 mg-albutero l 3 mg (2.5 mg base)/3 mL nebulizatio n soln INHALE 1 VIAL VIA NEBULIZER Q 4 H PRF SOB 01/01 completed Not Available Not Available Not Available tretinoin 0.01 % topical gel APPLY TO AFFECTED AREA AT NIGHT active Not Available Not Available No t Available albuterol sulfate 2.5 mg/3 mL (0.083 %) solution for nebulizatio n INHALE THE CONTENTS OF 1 VIAL VIA NEBULIZER EVERY 6 HOURS NEEDED FOR WHEEZING/ SHORTNESS OF BREATH active Not Available Not Available No t Available cetirizine 10 mg tablet TAKE 1 TABLET BY MOUTH EVERY DAY 2022 active Not Available Not Available Not Avai lable azithromyci n 250 mg tablet 01/01 completed Not Available Not Available Not Available fluconazole 150 mg tablet TAKE 1 TABLET BY MOUTH EVERY 72 HOURS FOR 2 DOSES active Not Available Not Available No t Available naltrexone 50 mg tablet 01/01 completed Not Available Not Available Not Available phenazopyri dine 200 mg tablet 01/01 completed Not Available Not Available Not Available prednisone 20 mg tablet TAKE 2 TABLETS BY MOUTH DAILY FOR 5 DAYS 07/07 completed Not Available Not Available Not Available torsemide 10 mg tablet TAKE 1 TABLET BY MOUTH EVERY DAY NEEDED active Not Available Not Available No t Available metronidazo le 500 mg tablet TK 4 TS PO FOR 1 DAY 01/01 completed Not Available Not Available Not Available amlodipine 5 mg tablet Take 1 tablet every day by oral route. 2022 active Not Available Not Available Not Avai lable ciprofloxac in 500 mg tablet 01/01 completed Not Available Not Available Not Available omeprazole 40 mg capsule,del ayed release Take 1 capsule every day by oral route. 2022 active Not Available Not Available Not Avai lable propranolol 10 mg tablet 01/07 completed Not Available Not Available Not Available famotidine 20 mg tablet TAKE 1 TABLET BY MOUTH ONCE DAILY 07/07 completed Not Available Not Available Not Available Kenalog 10 mg/mL suspension for injection In office injection administe red by the provider active [facility]: 0003- 0494- 20 Not Available Not Available Not Available doxycycline monohydrate 100 mg capsule TK 1 C PO BID 01/01 completed Not Available Not Available Not Available nystatin 100,000 unit/gram topical cream NATHAN EXT AA BID 01/01 completed Not Available Not Available Not Available buspirone 10 mg tablet TAKE 1 TABLET BY MOUTH THREE TIMES A DAY active Not Available Not Available No t Available indomethaci n 25 mg capsule TAKE 1 CAPSULE BY MOUTH 3 TIMES A DAY WITH MEALS. 07/07 completed Not Available Not Available Not Available diclofenac sodium 75 mg tablet,jimena yed release TAKE 1 TABLET BY MOUTH TWICE DAILY NEEDED 01/01 completed Not Available Not Available Not Available montelukast 10 mg tablet TAKE 1 TABLET BY MOUTH EVERY DAY active Not Available Not Available No t Available ergocalcife rol (vitamin D2) 1,250 mcg (50,000 unit) capsule TK ONE C PO Q WEEK UTD 01/01 completed Not Available Not Available Not Available azelastine 137 mcg (0.1 %) nasal spray SPRAY 2 SPRAYS BY INTRANASA L ROUTE TWICE A DAY active Not Available Not Available No t Available epinephrine 0.3 mg/0.3 mL injection, auto-inject or INJECT 0.3 ML INTO THE MUSCLE INSTRUCTE D ONCE FOR 1 DOSE active Not Available Not Available No t Available cefuroxime axetil 500 mg tablet 01/07 completed Not Available Not Available Not Available levofloxaci n 500 mg tablet TAKE 1 TABLET BY MOUTH DAILY 07/07 completed Not Available Not Available Not Available methylpredn isolone 4 mg tablets in a dose pack FOLLOW PACKAGE DIRECTION S active Not Available Not Available No t Available albuterol sulfate HFA 90 mcg/actuati on aerosol inhaler INHALE 2 PUFFS BY MOUTH ONCE EVERY 4 HOURS NEEDED FOR WHEEZING/ SHORTNESS OF BREATH active Not Available Not Available No t Available fluticasone propionate 50 mcg/actuati on nasal spray,suspe nsion SHAKE LQ AND U 2 SPRAYS IEN QD 2022 active Not Available Not Available Not Avai lable amoxicillin 875 mg-potassiu m clavulanate 125 mg tablet TAKE 1 TABLET BY MOUTH EVERY 12 HOURS FOR 10 DAYS active Not Available Not Available No t Available amoxicillin 500 mg-potassiu m clavulanate 125 mg tablet TAKE 1 TABLET BY MOUTH 3 TIMES A DAY FOR 7 DAYS 07/07 completed Not Available Not Available Not Available escitalopra m 10 mg tablet 01/01 completed Not Available Not Available Not Available ciprofloxac in 0.3 %-dexametha sone 0.1 % ear drops,suspe nsion SHAKE LIQUID AND INSTILL 4 DROPS TO RIGHT EAR TWICE DAILY FOR 7 DAYS 01/07 completed Not Available Not Available Not Available Spiriva with HandiHaler 18 mcg and inhalation capsules INHALE 1 CAPSULE VIA HANDIHALE R ONCE DAILY AT THE SAME TIME EVERY DAY active Not Available Not Available No t Available duloxetine 30 mg capsule,del ayed release TAKE 1 CAPSULE BY MOUTH EVERY DAY 01/07 completed Not Available Not Available Not Available duloxetine 60 mg capsule,del ayed release Take 1 capsule every day by oral route. active Not Available Not Available No t Available Atrovent HFA 17 mcg/actuati on aerosol inhaler INL 2 PFS PO QID 01/01 completed Not Available Not Available Not Available quetiapine 50 mg tablet TAKE 1 TABLET BY MOUTH EVERY DAY AT BEDTIME FOR 30 DAYS active Not Available Not Available No t Available hydrochloro thiazide 12.5 mg tablet TAKE 1 TABLET BY MOUTH EVERY DAY active Not Available Not Available No t Available Symbicort 160 mcg-4.5 mcg/actuati on HFA aerosol inhaler INHALE 2 PUFFS BY MOUTH 2 TIMES A DAY RINSE MOUTH WITH WATER AFTER USE. DO NOT SWALLOW. active Not Available Not Available No t Available GaviLyte-G 236 gram-22.74 gram-6.74 gram-5.86 gram oral solution USE DIRECTED 07/07 completed Not Available Not Available Not Available ropivacaine (PF) 5 mg/mL (0.5 %) injection solution Take 1 mg by injection route. active [facility] [phone] -[phone]- 01 Not Available Not Available Not Available Aerospan 80 mcg/actuati on HFA aerosol inhaler INL 2 PFS PO BID 01/01 completed Not Available Not Available Not Available Tezspire 210 mg/1.91 mL (110 mg/mL) subcutaneou s syringe active Not Available Not Available No t Available Vitals Date Recorded Body mass index (BMI) Body height Oxygen saturation Oxygen saturation in Arterial blood by Pulse oximetry Heart rate Body temperature Body weight Systolic blood pressure Diastolic blood pressure Provider Name and Address Organization Details Last Updated DateTime 2 62.2 kg/m2 157.48 cm 90 % 90 % 101 /min 97.7 [degF] 021133. 41 g 132 mm[Hg] 82 mm[Hg] Not Available [facility] 3 17:43:19 Date Recorded Body mass index (BMI) Body height Oxygen saturation Oxygen saturation in Arterial blood by Pulse oximetry Heart rate Body temperature Body weight Systolic blood pressure Diastolic blood pressure Provider Name and Address Organization Details Last Updated DateTime 3 63.8 kg/m2 157.48 cm 94 % 94 % 106 /min 97.7 [degF] 071298. 74 g 128 mm[Hg] 80 mm[Hg] Not Available [facility] 3 17:43:19 Date Recorded Body mass index (BMI) Body height Body weight Provider Name and Address Organization Details Last Updated DateTime 07/28/2022 64 kg/m2 157.48 cm 632263.33 g Not Available [facility] 09/02/2022 17:43:20 Date Recorded Body height Body mass index (BMI) Body weight Heart rate Oxygen saturation Oxygen saturation in Arterial blood by Pulse oximetry Systolic blood pressure Diastolic blood pressure Provider Name and Address Organization Details Last Updated DateTime 3 157.48 cm 64 kg/m2 402181. 33 g 104 /min 98 % 98 % 124 mm[Hg] 78 mm[Hg] MERCEDES Ley [facility] [employer] 3 14:45:44 Date Recorded Body height Body weight Heart rate Oxygen saturation Oxygen saturation in Arterial blood by Pulse oximetry Systolic blood pressure Diastolic blood pressure Provider Name and Address Organization Details Last Updated DateTime 4 157.48 cm 294660. 33 g 100 /min 99 % 99 % 122 mm[Hg] 76 mm[Hg] Isaias Patel [employer] 4 13:47:09 Social History Question Answer Notes LastModified by Organizat ion Details LastModified Time Tobacco Smoking Status Never Smoker Not Available [facility] 09/02/2022 17:42:52 What Is Your Level Of Alcohol Consumption? None MIGRATION.72258 [id number] Information not available 09/02/2022 What Is Your Level Of Caffeine Consumption? Moderate MIGRATION.57039 05054 Information not available 09/02/2022 In The 14 Days Before Symptom Onset, Have You Had Close Contact With A Laboratory-confir med COVID-19 While That Case Was Ill? No MIGRATION.95838 36762 Information not available 09/02/2022 In The 14 Days Before Symptom Onset, Have You Had Close Contact With A Person Who Is Under Investigation For COVID-19 While That Person Was Ill? No MIGRATION.74113 12524 Information not available 09/02/2022 What Type Of Diet Are You Following? REGULAR MIGRATION.96713 38494 Information not available 09/02/2022 What Is The Highest Grade Or Level Of School You Have Completed Or The Highest Degree You Have Received? GD48391-6 MIGRATION.91203 48671 Information not available 09/02/2022 Have There Been Any Changes To Your Family Or Social Situation? No MIGRATION.45091 85518 Information not available 09/02/2022 What Is The Fluoride Status Of Your Home? Unknown MIGRATION.08549 00916 Information not available 09/02/2022 Are There Any Guns Present In Your Home? No MIGRATION.59141 62364 Information not available 09/02/2022 Do You Use Insect Repellent Routinely? No MIGRATION.16958 64560 Information not available 09/02/2022 [facility] MIGRATION.24379 41392 Information not available 09/02/2022 What Was The Date Of Your Most Recent Tobacco Screening? 01/07/2022 MIGRATION.73120 62714 Information not available 09/02/2022 Do You Have Any Pets? Yes MIGRATION.67081 67044 Information not available 09/02/2022 Do You Use Your Seat Belt Or Car Seat Routinely? Yes MIGRATION.63905 40414 Information not available 09/02/2022 Do You Have Smoke And Carbon Monoxide Detectors In Your Home? Yes MIGRATION.44233 46551 Information not available 09/02/2022 Are You Passively Exposed To Smoke? No MIGRATION.94032 74567 Information not available 09/02/2022 Are There Any Smokers In Your House? No MIGRATION.22414 80994 Information not available 09/02/2022 Do You Feel Stressed (tense, Restless, Nervous, Or Anxious, Or Unable To Sleep At Night)? DF00820-7 MIGRATION.23284 70114 Information not available 09/02/2022 Do You Use Any Illicit Or Recreational Drugs? No MIGRATION.32213 32356 Information not available 09/02/2022 Do You Use Sunscreen Routinely? Yes MIGRATION.11750 76584 Information not available 09/02/2022 Have You Recently Traveled Abroad? No MIGRATION.89899 64116 Information not available 09/02/2022 Do You Have Any Dietary Restrictions? No MIGRATION.81655 29051 Information not available 09/02/2022 Do You Or Have You Ever Used Any Other Forms Of Tobacco Or Nicotine? No MIGRATION.54891 84895 Information not available 09/02/2022 Sex: Female Functional Status Question Answer Note LastModified by Organizat ion Details LastModified Time What is your exercise level? None MIGRATION.[id number] Information not available 09/02/2022 Mental Status None recorded. Family History Relationship Description Onset Age of this Age Resolved Age Notes LastModified by Organization Details LastModified Time Father Family history of malignant neoplasm [id number] [id number] Not available 09/02/2022 17:43:00 Father Hypertensive disorder MIGRATION.912 [id number] Not available 09/02/2022 17:43:00 Medical History Condition Response ARTHRITIS Y HYPERTENSION Y Gynecological HistoryNo gynecological history recorded. Obstetrics History GPAL:G 0 P 0 0 0 0 Immunizations Vaccine Type Date Status Note Provider Nam e and Address Organization Details Recorded Time COVID-19, mRNA, LNP-S, PF, 30 mcg/0.3 mL dose 11/28/2020 completed Not Available [facility] 3 17:44:23 COVID-19, mRNA, LNP-S, PF, 30 mcg/0.3 mL dose 11/07/2020 completed Not Available [facility] 3 17:44:24 Past Encounters Encounter ID Performer Location Encounter Start Date Encounter Closed Date Diagnosis/Indication Diagnosis SNOMED-CT Code Diagnosis ICD10 Code Diagnosis Note [id number] _ROMERO_Laura IGRATION_ DEFAULT_1 _1 , 01/07/2022 00:00:00 01/07/2022 15:25:32 [id number] [facility] Internal Med [facility] [address] [facility], [facility] [address] [place] [address] 07/07/2022 00:00:00 07/07/2022 13:28:19 [id number] [facility] [place] [address] [place] [address] 07/28/2022 00:00:00 07/28/2022 10:04:08 [id number] [facility] [address] [facility], [address] [address] 07/28/2022 00:00:00 07/28/2022 13:12:44 [id number] [facility] General [facility] [address] [place] [address] 02/17/2023 14:42:49 02/17/2023 15:11:56 Screening for malignant neoplasm of colon 537083728 Z12.11 [id number] Pamela [facility]on [facility] General Surgery [address] [place] [address] 07/14/2023 13:02:20 07/14/2023 14:33:33 Hemat[place]zia [id number] K92.1 Health Concerns Section Related Observation LastModified by Organization Detai ls LastModified Time None Recorded Concern Status LastModified by Organization Details LastModified Time None Recorded Advance Directives Directive None Recorded Payers Encounter Date Sequence Insurance Name Policy Number Policy Fang Covered Member ID Fang Member ID Guarantor Name 02/17/2023 2 [place] [employer] Angie Leos [id number] Angie Leos 02/17/2023 1 [facility] (MEDICARE REPLACEMENT/A DVANTAGE - PPO) [id number] Angie Leos [id number] Angie Leos 07/14/2023 2 [place] [employer] [place] [employer] Angie Leos [id number] Angie Leos 07/14/2023 1 [facility] (MEDICARE REPLACEMENT/A DVANTAGE - PPO) [id number] Angie Leos [id number] Angie Leos Notes Date Note Type Note Provider Name and Address Organization Details Recorded Time 02/17/2023 text/html PT WAS SEEN IN T HE OFFICE TODAY FOR COLON SCREENING . PT DENIES ABD PAIN /N/V/D/BLEEDING /WT LOSS. Pamela Christianson MD [address] [facility], [address], [place], [address], [facility] 02/17/2023 15:28:03 07/14/2023 text/html ANGIE WAS SEEN IN THE OFFICE TODAY Y. PT C/O BLOOD IN THE STOOL . PT DENIES CONSTIPATION /DIARRHEA /PUSHING /STRAINING. PT HAS BEEN HAIVING THESE SX FOR A WHILE . RECENT COLON JOSE NOT SHOW ANY PATHOLOGY. PT LAST HAS THESE SX X 2 DAYS AGO . Pamela Christianson MD [address] [facility], [facility] [address], [place], [address], [facility] [employer] 07/14/2023 14:37:41 OBGyn Episode No OBEpisode recorded.
--- OUTSIDE RECORDS SUMMARY | 2024-10-31 08:45 | XMS_ITS | Clinical Summary ---
Author Organization [facility] Address [address] [place] [address] Care Team Providers Care Acetylene Cutter Name Role Phone Celia Carsno PA-C Primary Care Provider + Source Comments [facility],non-[facility] Affiliates and Associated Physician Practices is amultiple site organization consisting of ambulatory clinics and hospital sitesin [place], [place], [place] and [place]. This disclosure is being madepursuant to the Care Everywhere program and may not contain all information available regarding this patient. Last updated 18.[facility] Allergies Active Allergy Reactions Criticality Noted Date Comments Nickel Itching Medium 03/29/2020 Medications * This document contains information received from the source organization and may not represent a complete record from that organization. * Be aware that medications may not be up to date on this document. Alwaysverify current medications with the patient. Cholecalciferol (VITAMIN D3) 1000 unitsIndications: Vitamin D deficiency Take 1 capsule by mouth once daily 30 capsule 4 9 Active famotidine (PEPCID) 20 MG tabletIndications :Gastroesophageal reflux disease, esophagitis presence not specified Take 1 tablet by mouth once daily 90 tablet 3 0 Active tiotropium (SPIRIVA) 18 MCG inhalation capsuleIndication s:Severe persistent asthma, unspecified whether complicated (HCC) Inhale 1 capsule by mouth once daily 90 capsule 1 0 Active beclomethasone HFA (QVAR REDIHALER) 80 MCG/ACT inhalerIndication s:Persistent asthma without complication, unspecified asthma severity (HCC) Inhale 1 puff by mouth 2 times daily 1 Inhaler 5 0 Active VENTOLIN HFA 108 (90 Base) MCG/ACT inhalerIndication s:Severe asthma, unspecified whether complicated, unspecified whether persistent (HCC) Inhale 2 puffs by mouth every 4 hours as needed 2 Inhaler 5 0 Active Ferrous Gluconate (IRON 27 PO) Take 1 tablet by mouth once daily Active docusate sodium (COLACE) 100 MG capsuleIndication s:Constipation, unspecified constipation type Take 1 capsule by mouth 2 times daily 60 capsule 2 0 Active busPIRone (BUSPAR) 10 MG tablet buspirone 10 mg tablet Active tiotropium (SPIRIVA) 18 MCG inhalation capsule Spiriva with HandiHaler 18 mcg and inhalation capsules Active budesonide-formot carlie (SYMBICORT) 160-4.5 MCG/ACT inhalerIndication s:Persistent asthma without complication, unspecified asthma severity (HCC) Inhale 2 (two) puffs by mouth 2 times daily 1 Inhaler 5 1 Active montelukast (SINGULAIR) 10 MG tabletIndications :Severe asthma, unspecified whether complicated, unspecified whether persistent (HCC) Take 1 (one) tablet by mouth once daily 30 tablet 1 Active albuterol (PROVENTIL;VENTOL IN) (2.5 MG/3ML) 0.083% nebulizer solutionIndicatio ns:Persistent asthma without complication, unspecified asthma severity (HCC) INHALE 1 VIAL VIA NEBULIZER BID PRN 60 vial 5 1 Active DULoxetine (CYMBALTA) 60 MG capsuleIndication s:Anxiety and depression Take 1 (one) capsule by mouth once daily 30 capsule 2 1 Active fluticasone propionate (FLONASE) 50 MCG/ACT nasal sprayIndications: Severe asthma, unspecified whether complicated, unspecified whether persistent (HCC) [place] 2 (two) sprays into each nostril once daily 16 g 5 1 Active amLODIPine (NORVASC) 5 MG tabletIndications :Essential hypertension Take 1 (one) tablet by mouth once daily 90 tablet 1 1 Active diclofenac sodium EC (VOLTAREN) 75 MG tabletIndications :Right knee pain, unspecified chronicity Take 1 (one) tablet by mouth 2 times daily as needed 180 tablet 1 Active cetirizine (ZYRTEC) 10 MG tabletIndications :Severe asthma, unspecified whether complicated, unspecified whether persistent (HCC) Take 1 (one) tablet by mouth once daily 30 tablet 5 1 Active azelastine (ASTELIN) 0.1 % nasal spray USE 2 SPRAYS IN EACH NOSTRIL TWICE DAILY 30 mL 2 Active Active Problems Problem Noted Date Diagnosed Date Hypoxemia 06/02/2020 Hoarseness 02/22/2019 Chronic sinusitis 11/29/2018 Numbness and tingling in left arm 11/29/2018 Class 3 severe obesity with serious comorbidity and body mass index (BMI) of 50.0 to 59.9 in adult 09/27/2018 Vitamin D deficiency 09/27/2018 Iron deficiency 09/27/2018 Primary osteoarthritis of both knees 09/27/2018 Chronic left shoulder pain 09/27/2018 Bulging of cervical intervertebral disc 09/28/19 19 Gastroesophageal reflux disease 09/27/2018 BRBPR (bright red blood per rectum) 09/27/2018 Dizziness 09/27/2018 Hypertension Asthma Arthritis Anxiety and depression Resolved Problems Problem Noted Date Diagnosed Date Resolved Date Constipation 09/27/2018 10/25/2018 Seasonal allergies 9 Immunizations Immunization Administration Dates Next Due INFLUENZA VACCINE, QUADR. (A FLURIA, FLUZONE QUADRIVALENT; 6MO+) (IIV4) 03/30/2019 INFLUENZA VACCINE, QUADR. (F LUZONE; FLULAVAL; FLUARIX; AFLURIA QUADRIVALENT; 6MO+), 0.5 ML (IIV4) 09/27/2018 iNFLUENZA VACCINE, RECOM-PATRICIA, QUADR. (FLUBLOCK QUADRIVALENT; 18Y+) (RIV4) 03/29/2020 Family History Medical History Relation Name Comments Cancer - Other Father throat Cancer - Breast Maternal Grandmother Cancer - Uterine Mother Relation Name Status Comments Father Alive Maternal Grandmother Mother Alive Social History Tobacco Use Types Packs/Day Years Used Date Smoking Tobacco: Never Smokeless Tobacco: Never Tobacco Cessation:Counseling Given: No Alcohol Use Standard Drinks/Week Comments No 0 [...] Sign Reading Time Taken Comments Blood Pressure 140/84 07/26/2020 10:47 AM FLAT BREAKDOWN PROCESSOR Pulse 106 05/28/2020 11:11 AM FLAT BREAKDOWN PROCESSOR Temperature 36.1 C (97 F) 07/26/2020 10:47 AM FLAT BREAKDOWN PROCESSOR Respiratory Rate 20 04/19/2020 11:35 AM CDT Oxygen Saturation 99% 07/26/2020 10:47 AM FLAT BREAKDOWN PROCESSOR Inhaled Oxygen Concentration - - Weight 145.2 kg (320 lb) 07/26/2020 10:47 AM FLAT BREAKDOWN PROCESSOR Height 160 cm (5' 3 ) 07/26/2020 10:47 AM FLAT BREAKDOWN PROCESSOR Body Mass Index 56.69 07/26/2020 10:47 AM FLAT BREAKDOWN PROCESSOR Plan of Treatment Health Maintenance Due Date Last Done Comments COLOGUARD (AGES 45-75) - COLON CA SCREENING 1972 COLON MONITORING 1972 COLONOSCOPY - COLON CA SCREENING 1972 CT COLONOGRAPHY - COLON CA SCREENING 1972 Colorectal Cancer Screening 1972 FIT - COLON CA SCREENING 1972 FLEX SIG - COLON CA SCREENING 1972 PAP SMEAR 1972 HIV SCREENING 01/14/1987 HEPATITIS C SCREENING 01/10/1990 DTAP/TDAP/TD VACCINES (1 - Tdap) 01/14/1991 HEPATITIS B VACCINE (1 of 3 - 19+ 3-dose series) 01/14/1991 PNEUMOCOCCAL VACCINE 50+ (1 of 2 - PCV) 01/14/1991 MAMMOGRAM 05/02/2021 05/02/2019 ZOSTER VACCINE (1 of 2) 01/14/2022 COVID-19 VACCINE (3 - 2023- season) 2024 11/26/2020, 11/07/2020 LIPID TESTING 05/30/2024 05/30/2019, 06/08/2018 DEPRESSION SCREENING 07/05/2024 INFLUENZA VACCINE (Season Ended) 2025 05/01/2021, 03/29/2020, 03/30/2019, Additional history exists HIB VACCINE Aged Out No longer eligi ble based on patient's age to complete this topic HPV VACCINE Aged Out No longer eligi ble based on patient's age to complete this topic MENINGOCOCCAL (Group B) VACCINE SHARED DECISION-MAKING Aged Out No longer eligible based on patient's age to complete this topic MENINGOCOCCAL GROUPS A/C/Y/W VACCINE Aged Out No longer eligible based on patient's age to complete this topic Procedures Procedure Name Priority Date/Time Associated Diagnosis Comments LIPID PROFILE Routine 05/30/2019 2:35 PM FLAT BREAKDOWN PROCESSOR Class 3 severe obesity with serious comorbidity and body mass index (BMI) of 50.0 to 59.9 in adult, unspecified obesity type MAMMO BILAT SCREENING Routine 05/02/2019 2:42 PM CDT Healthcare maintenance from Last 3 Months or Most Recently Relevant to Health Maintenance Results * LIPID PROFILE (05/30/2019 2:35 PM FLAT BREAKDOWN PROCESSOR) Cholesterol Total 141 <200 mg/dL 05/30/2019 3:21 PM [facility] HDL 58 >40 mg/dL 05/30/2019 3:21 PM [facility] Comment: ATP III Classification of HDL Cholesterol: <40 mg/dL: Considered a major risk factor. >60 mg/dL: Considered a negative risk factor. LDL Calculated 72 <100 mg/dL 05/30/2019 3:21 PM [facility] Comment: ATP III Classification of LDL Cholesterol: <100 mg/dL: Optimal 100 - 129 mg/dL: Near Optimal/Above Optimal 130 - 159 mg/dL: Borderline High 160 - 189 mg/dL: High >190 mg/dL: Very High Triglycerides 53 <150 mg/dL 05/30/2019 3:21 PM [facility] Comment: ATP III Classification of Triglycerides: <150 mg/dL: Normal 150 - 199 mg/dL: Borderline High 200 - 400 mg/dL: High >500 mg/dL: Very High Blood BLOOD SPECIMEN / Unknown Lab Venipuncture / Unknown 05/30/2019 2:35 PM FLAT BREAKDOWN PROCESSOR 05/30/2019 2:56 PM FLAT BREAKDOWN PROCESSOR Doreen Mae [employer] [facility] - CHEMISTRY ORDERABL ES Final Result [address] [phone] * MAMMO BILAT SCREENING (05/02/2019 2:42 PM CDT) Anatomical Region Laterality Modality Breast Bilateral Mammography 05/24/2019 10:3 5 AM FLAT BREAKDOWN PROCESSOR Impressions 05/24/2019 10:39 AM FLAT BREAKDOWN PROCESSOR IMPRESSION: No mammographic evidence of malignancy. ASSESSMENT: BI-RADS Category 1: Negative mammogram. RECOMMENDATION: Bilateral screening mammogram in one year. This report was electronically signed by URSULA DOZIER M.D. on 05/24/2019 10:39 AM . Narrative 05/24/2019 10:39 AM FLAT BREAKDOWN PROCESSOR SCREENING MAMMOGRAM DATE: 05/02/2019 COMPARISON: Prior mammograms just received from [facility] dated 01/25/2017 and 12/10/2010. 2017 report not available for review. HISTORY: Screening mammogram. TECHNIQUE: Images were performed using 3D tomosynthesis images with reconstructed/synthetic 2D images. CAD analysis not available. BREAST COMPOSITION: There are scattered areas of fibroglandular density. FINDINGS: There is no suspicious mass, clustered microcalcification, or architectural distortion in either breast on 3D images. There has been no change in the mammographic appearance compared with the prior study. Doreen Mae [employer] ARCHIT[employer] T[employer] MAMMO ORDERABLES Final R esult from Last 3 Months or Most Recently Relevant to Health Maintenance Insurance [facility] Care Teams Acetylene Cutter Relationship Specialty Start Date End Date Celia Carson PA-C PCP - General 12/04/20
--- OUTSIDE RECORDS SUMMARY | 2024-10-31 08:45 | XMS_ITS | Clinical Summary ---
Author Organization [facility] Address [address] [place] [id number] Care Team Providers Care Wool Presser Name Role Phone Unavailable Primary Care Provider Unavailabl e Allergies Active Allergy Reactions Criticality Noted Date Comments Nickel Unknown 03/06/2022 Family History Medical History Relation Comments Colon polyps Father Throat cancer Father Breast Cancer Maternal Grandmother Relation Status Comments Father Maternal Grandmother Social History Tobacco Use Types Packs/Day Years Used Date Smoking Tobacco: Never Smokeless Tobacco: Never Alcohol Use Standard Drinks/Week Comments Not Currently 0 (1 standard drink = 0.6 oz pur e alcohol) Comments No Sex and Gender Information Value Date Recorded Sex Assigned at Not on file Legal Sex Female 7:10 AM CDT Gender Identity Not on file Sexual Orientation Not on file Last Filed Vital Signs Vital Sign Reading Time Taken Comments Blood Pressure - - Pulse - - Temperature - - Respiratory Rate - - Oxygen Saturation - - Inhaled Oxygen Concentration - - Weight 145.2 kg (320 lb) 03/06/2022 11:14 AM CDT Height 160 cm (5' 3 ) 03/06/2022 11:14 AM CDT Body Mass Index 56.69 03/06/2022 11:14 AM CDT Plan of Treatment Health Maintenance Due Date Last Done Comments Cervical Cancer Screening Pa p Smear (Age 30 to 64) Every 3 Years 1972 Colorectal Cancer Screening Colonoscopy (10 Years) 1972 Annual Physical 01/14/1975 Hepatitis C 01/14/1990 Hepatitis B Vaccines (1 of 3 - 19+ 3-dose series) 01/14/1991 Cervical Cancer Screening Pa p with HPV Testing (Age 30 to 64) Every 5 Years 01/14/2002 Cervical Cancer Screening wi th HPV 01/14/2002 Mammogram Screening 2012 Zoster Vaccines (1 of 2) 01/14/2022 Pneumococcal Vaccine: 50+ Years (2 of 2 - PCV) 11/06/2022 11/06/2021 COVID-19 Vaccine (3 - 2023-2 5 season) 2024 11/26/2020, 11/07/2020 DTaP, Tdap and Td Vaccines ( 2 - Td or Tdap) 01/05/2026 01/06/2016 Meningococcal B Vaccine Aged Out No l onger eligible based on patient's age to complete this topic Meningococcal Vaccine Aged Out No yesi bisi eligible based on patient's age to complete this topic RSV Immunizations Under 20 Months Aged Out No longer eligible b ased on patient's age to complete this topic Insurance
--- OUTSIDE RECORDS SUMMARY | 2024-10-31 08:45 | XMS_ITS | Patient Health Record ---
Author Organization [facility] [employer] [facility] [place] ([address]) Address [address] [place] [address] Care Team Providers Care Infant Caregiver Name Role Phone Yannick Glasgow Unavailable [phone] Michael Gleason Unavailable Unavailable Amy Chorpa Unavailable [phone] [facility], Provider Unavailable Unavailab le Allergies Allergen (clinical drug ingredient) Drug/Non Drug Allergy documented on EMR Reaction Allergy Type Onset Date Status nickel Nickel other reaction Allergy Activ e Reason For Referral No Information Medications Medication SIG (Take, Route, Frequency, Duration) Notes Start Date End Date Status BUDESONIDE-FORMOTEROL 160 mcg-4.5 mcg/inh 2 puff(s) inhaled 2 times a day Not-Taking BUSPIRONE 10 mg 1 tab(s) orally 2 times a day Not-Taking OMEPRAZOLE 40 mg 1 cap(s) orally once a day Not-Taking Symbicort 160-4.5 MCG/ACT 2 puff(s) inhaled 2 times a day Not-Taking TORSEMIDE 20 mg 1 tab(s) orally once a day Not-Taking Azelastine HCl 137 MCG/SPRAY 2 spray(s) intranasally 2 times a day for 30 days Not-Taking HYDROCHLOROTHIAZIDE 12.5 mg 1 cap(s) orally once a day Not-Taking BACLOFEN 10 mg 1 tab(s) orally 3 times a day Not-Taking FLUTICASONE NASAL 50 mcg/inh 1 spray(s) in each nostril once a day Not-Taking AZELASTINE NASAL 137 mcg/inh 2 spray(s) intranasally 2 times a day Not-Taking Tezspire 210 MG/1.91ML as directed Subcutaneous once for 28 days Active Montelukast Sodium 10 MG 1 tab(s) orally once a day Not-Taking busPIRone HCl 10 MG 1 tab(s) orally 2 times a day Not-Taking PNEUMOVAX 23 - 0.5 mL intramuscularly once for 1 dose(s) Not-Taking Vitamin D3 125 MCG (5000 UT) 1 capsule Orally Once a day for 30 day(s) Active FERROUS SULFATE Not- Taking MUPIROCIN TOPICAL 2% 1 sara applied topically 3 times a day Not-Taking EPIPEN 2-KURT 0.3 mg as directed intramuscularly once for 30 days 4 Not-Taking SYMBICORT 160 mcg-4.5 mcg/inh 2 puff(s) inhaled 2 times a day Not-Taking FLUTICASONE NASAL 50 mcg/inh 2 spray(s) in each nostril BID for 30 day(s) 4 Not-Taking AZELASTINE NASAL 137 mcg/inh 2 spray(s) intranasally 2 times a day for 30 day(s) 4 Not-Taking ACTHIB (HIB) - 0.5 mL intramuscularly once for 1 dose(s) Not-Taking CETIRIZINE 10 mg 1 tab(s) orally once a day for 30 days 4 Not-Taking EpiPen 2-Kurt 0.3 MG/0.3ML as directed intramuscularly once for 30 days 4 Active Ferrous Sulfate *Please review and pick correct strength-formul ation from Televerde options. If intended option is not shown, discontinue and re-order from Quick Search* Active Omeprazole 40 MG 1 cap(s) orally once a day Active CETIRIZINE 10 mg 1 tab(s) orally once a day for 30 days Active ALBUTEROL 90 mcg/inh 2 puff(s) inhaled every 6 hours Active Advair HFA 230 MCG-21 MCG 2 PUFF(S) INHALED 2 TIMES A DAY *Please review and pick correct strength-formul ation from Televerde options. If intended option is not shown, discontinue and re-order from Quick Search* Not-Taking SPIRIVA RESPIMAT 1.25 mcg/inh 2 puff(s) inhaled once a day Active Spiriva Respimat 1.25 MCG/ACT 2 puff(s) inhaled once a day Not-Taking Trelegy Ellipta 200-62.5-25 MCG/ACT 1 puff Inhalation Once a day for 30 days Active MONTELUKAST 10 mg 1 tab(s) orally once a day Active Amoxicillin-Pot Clavulanate 875-125 MG 1 tablet Orally every 12 hrs for 10 days Not-Taking AZELASTINE NASAL 137 mcg/inh 2 spray(s) intranasally 2 times a day for 30 days Active Torsemide 20 MG 1 tab(s) orally once a day Active FLUTICASONE NASAL 50 mcg/inh 2 spray(s) in each nostril twice a day for 30 days Active Amitriptyline HCl 25 MG TAKE 1 TABLET BY MOUTH ONCE NIGHTLY Oral for 90 Days Active ADVAIR HFA 230 mcg-21 mcg 2 puff(s) inhaled 2 times a day Active hydroCHLOROthiazide 12.5 MG 1 cap(s) orally once a day Active NASAL WASHES N/A as directed intranasally as needed for 30 days Active Baclofen 10 MG 1 tab(s) orally 3 times a day Active Fluticasone Propionate 50 MCG/ACT 1 spray(s) in each nostril once a day Not-Taking Azelastine HCl 137 MCG/SPRAY 2 spray(s) intranasally 2 times a day Not-Taking Mupirocin 2 % 1 sara applied topically 3 times a day Not-Taking Budesonide-Formoterol Fumarate 160-4.5 MCG/ACT 2 puff(s) inhaled 2 times a day Not-Taking Fluticasone Propionate 50 MCG/ACT 2 spray(s) in each nostril twice a day for 30 days Active Albuterol Sulfate HFA 108 (90 Base) MCG/ACT 2 puff(s) inhaled every 6 hours Active Fluconazole 150 MG 1 tablet Orally once then another 72 hours later for 2 days Active Cetirizine HCl 10 MG 1 tab(s) orally once a day for 30 days Active TEZSPIRE [...] and re-order from Quick Search* 4 Not-Taking Social History Tobacco Use: Social History Observation Description Date Details (start date - stop date) Never Smoker NA - NA Smoking Smart Form: Question Answer Notes Are you a: never smoker Problems Problem Type SNOMED Code ICD Code Onset Dates Problem Status W/U Status Risk Notes Problem Vitamin D deficiency (32323128) Vitamin D deficiency, unspecified (E55.9) Active confirmed Problem Chronic allergic conjunctivitis (34879030) Other chronic allergic conjunctivitis (H10.45) Active confirmed Problem Allergic rhinitis caused by pollen (disorder) (25688199) Allergic rhinitis due to pollen (J30.1) Active confirmed Problem Allergic rhinitis (74878696) Other allergic rhinitis (J30.89) Active confirmed Problem Uncomplicated severe persistent asthma (572726699) Severe persistent asthma, uncomplicated (J45.50) Active confirmed Problem Allergic rhinitis caused by animal hair and dander (722636340165198) Allergic rhinitis due to animal (cat) (dog) hair and dander (J30.81) Active confirmed Problem Chronic sinusitis (95834238) Chronic sinusitis, unspecified (J32.9) Active confirmed Problem Essential hypertension (42448995) Essential (primary) hypertension (I10) Active confirmed Vital Signs Oximetry 98 % 08/29/2024 Blood pressure diastolic 60 mm Hg 08/29/2024 Height 63 in 08/29/2024 Blood pressure systolic 136 mm Hg 08/29/2024 Weight 331 lbs 08/29/2024 BMI 58.63 kg/m2 08/29/2024 Encounters Encounter Location Date Provider Diagnosis [facility] [address] [place] [phone] 12/18/2023 Provider [facility] Allergic rhinitis due to pollen J30.1 ; Severe persistent asthma, uncomplicated J45.50 ; Chronic sinusitis, unspecified J32.9 and Vitamin D deficiency, unspecified E55.[address] [address] 05/08/2024 Yannick Glasgow Allergic rhinitis du e to pollen J30.1 ; Allergic rhinitis due to animal (cat) (dog) hair and dander J30.81 ; Other allergic rhinitis J30.89 ; Other chronic allergic conjunctivitis H10.45 ; Severe persistent asthma, uncomplicated J45.50 ; Acute serous otitis media, right ear H65.01 ; Chronic sinusitis, unspecified J32.9 ; Vitamin D deficiency, unspecified E55.9 and Essential (primary) hypertension I10 [address] [address] 08/29/2024 Yannick Glasgow Allergic rhinitis du e to pollen J30.1 ; Severe persistent asthma, uncomplicated J45.50 ; Allergic rhinitis due to animal (cat) (dog) hair and dander J30.81 ; Other allergic rhinitis J30.89 ; Other chronic allergic conjunctivitis H10.45 ; Vitamin D deficiency, unspecified E55.9 ; Essential (primary) hypertension I10 and Chronic sinusitis, unspecified J32.[address] [facility] [address] 11/18/2023 Yannick Glasgow [address] [address] 02/10/2024 Yannick Glasgow [address] [address] 05/08/2024 Yannick Glasgow [address] [address] 06/19/2024 Yannick Glasgow [address] [address] 08/09/2024 Yannick Glasgow Assessments Encounter Date Diagnosis (ICD Code) Assessment Notes Treatment Notes Treatment Clinical Notes Section Notes 12/18/2023 Allergic rhinitis due to pollen (ICD-10 - J30.1) 05/08/2024 Allergic rhinitis due to pollen (ICD-10 - [...] due to ongoing complications in her personal lifea at the momment. Return in 2 months for E&M 05/08/2024 Allergic rhinitis due to animal (cat) (dog) hair and dander (ICD-10 - J30.81) Follow allergen avoidance, meds and consider SCIT as an adjunctive treatment to current regimen 08/29/2024 Allergic rhinitis due to pollen (ICD-10 [...] with Asthma at age 37 with first blocker and cutter contact lens. At the time she was experiencing SOB [...] as an adjunctive treatment to current regimen 05/08/2024 Other allergic rhinitis (ICD-10 - J30.89) Follow allergen avoidance, meds and consider SCIT as an adjunctive treatment to current regimen 05/08/2024 Other chronic allergic conjunctivitis (ICD-10 - H10.45) Given ocular signs and symptoms I encouraged allergy avoidance measures and meds as above. If symptoms persist, consider adding additional medications including intraocular antihistamine/mast cell stabilizer, PRN and consider SCIT as an adjunctive measure 08/29/2024 Other allergic rhinitis (ICD-10 - J30.89) Follow allergen avoidance, meds and consider SCIT as an adjunctive treatment to current regimen 08/29/2024 Other chronic allergic conjunctivitis (ICD-10 - H10.45) Given ocular signs and symptoms I encouraged allergy avoidance measures and meds as above. If symptoms persist, consider adding additional medications including intraocular antihistamine/mast cell stabilizer, PRN and consider SCIT as an adjunctive measure 05/08/2024 Severe persistent asthma, uncomplicated (ICD-10 - J45.50) She was formally diagnosed with Asthma at age 37 with first blocker and cutter contact lens. At the time she was experiencing SOB and wheezing after exposure to mold. First three years I was in a hospital all the time. Prior to starting Tezspire, she was in the hospital every three months. Since diagnosis, reports being on steroids up to twelve times a year. She is currently treated with Singulair, Advair, Spiriva, and Tezspire. Previously managed by Dr. Tim. [...] for care who does not prescribe Tezspire. Currently taking doing at home. Using OSMAR twice a day preventatively. Otherwise using as a rescue 1-2 times a week. She does have a nebulizer; last using in September for additional lower airway infeciton. Spirometry was performed at initial visit showing severe obstruction. Currently with auth for Tezspire through he end of the year. Will refill today. Given severe prior history, would highly advised observation in office after dosing. Currently with concerns for afforability so will attempt to get on to free drug program. Otherwise she may need to seek a different provider to obtain her Tezspire dosing. Will also plan to trail Trelegy today. Otherwise discussed use of OSMAR with spacer. Consider SCIT as above 12/18/2023 Severe persistent asthma, uncomplicated (ICD-10 - J45.50) 12/18/2023 Chronic sinusitis, unspecified (ICD-10 - J32.9) 05/08/2024 Acute serous otitis media, right ear (ICD-10 - H65.01) Increased ear pressure and pain for the past few weeks with purulence noted behind TM on PE. Plan on treatment with Augmentin. Also noted history of yeast infections so will send Diflucan preventatively 08/29/2024 Vitamin D deficiency, unspecified (ICD-10 - E55.9) She has since finished 50K IU weekly. Plan to start 5K daily 08/29/2024 Essential (primary) hypertension (ICD-10 - I10) BP elevated today without symptoms of urgency or emergency. Continue serial checks and follow-up with PCP 05/08/2024 Chronic sinusitis, unspecified (ICD-10 - J32.9) Recurrent sinus infections requiring abx multiple times a year meeting JMF criteria for modified PID work-up. Showing inadequate protection to S. pnumo and Hib. Advised obtianing boosters 12/18/2023 Vitamin D deficiency, unspecified (ICD-10 - E55.9) 05/08/2024 Vitamin D deficiency, unspecified (ICD-10 - E55.9) as above, start 50K IU weekly x 8 weeks before switch ot 5K daily 08/29/2024 Chronic sinusitis, unspecified (ICD-10 - J32.9) Recurrent sinus infections requiring abx multiple times a year meeting JMF criteria for modified PID work-up. Showing inadequate protection to S. pnumo and Hib. Advised obtianing boosters though would like to hold off given recent bloating 05/08/2024 Essential (primary) hypertension (ICD-10 - I10) BP elevated today without symptoms of urgency or emergency. Continue serial checks and follow-up with PCP 10/10/2024 Other 08/29/2024 Other Plan Of Treatment Pending Test Test Name Order Date STREPTOCOCCUS PNEUMONIAE IGG AB (23 SERO TYPES) 07/28/2023 TETANUS ANTITOXOID ANTIBODY (EIA) 2023 DIPHTHERIA ANTITOXOID ANTIBODY HAEMOPHILUS INFLUENZAE B ANTIBODY, IGG 0 07/28/2023 Insurance Providers Payer Name Payer Address Payer Phone Subscriber Number Group Number Insured Name Patient Relationship to Insured Coverage Start Date Coverage End Date [employer] Medicare [address] [address] [place] [address] [id number] Angie Leos Self - patient is the insured Medical (General) History Medical History History ICD Code Asthma Hypertension Sinusitis Osteoarthritis Surgical History Surgery Date(Month/Year) sinus surgery carpal tunnel release Ablation Hospitalization History Reason Date(Month/Year) asthma exacerbation
== END 2024-10-31 08:13 | disposition home or self-care (01) ==
PROVIDERS: PCP Nurse Practitioner Family; Visit Provider Nurse Practitioner
DX: J45.909 Unspecified asthma, uncomplicated (principal); E66.2 Morbid (severe) obesity with alveolar hypoventilation; R14.0 Abdominal distension (gaseous); Z86.0100 Personal history of colon polyps, unspecified; K62.5 Hemorrhage of anus and rectum
CPT/HCPCS: 71250; 74177; Q9967

== ENCOUNTER 2024-11-16 08:18 | Outpatient (CLI) | payer MEDICARE, SELFPAY ==
--- NOTE | ~2024-11-16 | XR_ITS ---
XR abdomen/kub 1V 11/16/2024 08:38 INDICATION: Abdominal pain TECHNIQUE: KUB COMPARISON: None FINDINGS: Bowel gas pattern is normal. There is no evidence of free air, mass, organomegaly, ascites or obstruction. No abnormal calculi are seen. Moderate lumbar spondylosis with dextroscoliosis. Mil d osteoarthritis of the hips. Lung bases are unremarkable. IMPRESSION: 1: No acute abdominal abnormality identified. Reviewed, dictated and finalized at location A.
--- OUTSIDE RECORDS SUMMARY | 2024-11-16 08:23 | XMS_ITS | Encounter Summary ---
Author Organization [facility] Address [facility] [place] [address] Care Team Providers Care Plug Making Operator Name Role Phone TuDoreen austin Enriqueta LONDONN-MEDICAL LABORATORY TECHNICIAN Primary Care Provider + Celia Carson PA-C Primary Care Provider + Encounter Details Date Type Department Care Team (Late st Contact Info) Description 06/14/2020 Telephone [facility] [address] [place] [address] Smita Lopez MD [address] OF PULMONARY/[place] [address] Social History Tobacco Use Types Packs/Day Years [...] call: [facility]. She took first avail, 09/28/2019. She would like to be seen much sooner since [facility] She was in [facility] in [place], [place]. They put her on oxygen and her oxygen levels are low, she said they are about 90, 91. Additionally, her PCP is ordering a HEART ECHO procedure. Please see about an earlier appt and call her. Patient Call Back number: [phone] SOURCE INTELLIGENCE ANALYST documented in this encounter Plan of Treatment Not on file documented as of this encounter Visit Diagnoses Not on filedocumented in this encounter Care Teams Plug Making Operator Relationship Specialty Start Date End Date Doreen aMe, ASHLEY-BANDAR [address] [place] [address] PCP - General Nurse Practitioner 09/27/18 12/03/20 Celia Carson PA-C [address] [place] [id number] PCP - General 12/04/20 documented as of this encounter
--- OUTSIDE RECORDS SUMMARY | 2024-11-16 08:23 | XMS_ITS | Encounter Summary ---
Author Organization [facility] Address [facility] [place] [address] Care Team Providers Care Inserting Operator Name Role Phone Celia Carson PA-C Primary Care Provider + Encounter Details Date Type Department Care Team (Late st Contact Info) Description 12/04/2020 Telephone [facility] [address] [place] [address] Smita Lopez MD [address] OF PULMONARY/[place] [address] Social History Tobacco Use Types Packs/Day Years [...] MyCHart is down. Patient Call Back number: [phone] documented in this encounter Plan of Treatment Not on file documented as of this encounter Visit Diagnoses Not on filedocumented in this encounter Care Teams Inserting Operator Relationship Specialty Start Date End Date Celia Carson PA-C PCP - General 12/04/20 documented as of this encounter
--- OUTSIDE RECORDS SUMMARY | 2024-11-16 08:23 | XMS_ITS | Encounter Summary ---
Author Organization [facility] Address [facility] [place] [address] Care Team Providers Care Lead Java J2Ee Developer Name Role Phone Doreen Mae APRN-HUMAN CAPITAL CONSULTANT Primary Care Provider + Celia Carson PA-C Primary Care Provider + Reason for Visit * Reason Onset Date Comments MEDICATION REFILL 01/23/2019 MEDICATION REFILL 02/20/2019 Encounter Details Date Type Department Care Team (Late st Contact Info) Description 01/23/2019 Refill [facility] [address] [facility] [address] [place] [address] Doreen Mae, NURSE CHARGE RN-HUMAN CAPITAL CONSULTANT [address] OF [facility] [place] [address] MEDICATION REFILL; MEDICATION REFILL Social History Tobacco [...] encounter Miscellaneous Notes * Telephone Encounter - JulianYumi - 01/23/2019 10:25 AM CDT Refill request sent per protocol to provider PAMELLA 11-29-18 NOV 01-24-19 documented in this encounter Plan of Treatment Not on file documented as of this encounter Visit Diagnoses Diagnosis Vitamin D deficiency documented in this encounter Care Teams Lead Java J2Ee Developer Relationship Specialty Start Date End Date Doreen Mae APRN-BANDAR [address] [place] [address] PCP - General Nurse Practitioner 09/27/18 12/03/20 Celia Carson PA-C [address] [place] [address] PCP - General 12/04/20 documented as of this encounter
--- OUTSIDE RECORDS SUMMARY | 2024-11-16 08:23 | XMS_ITS ---
Author Organization [facility] [place] ([address]) Address [address] [facility] [address] [place] [address] Care Team Providers Care Workflow Developer Name Role Phone Myah Yannick Unavailable [phone] Michael Gleason Unavailable Unavailable Ifeoma Ruiz Unavailable [phone] REASON FOR VISIT Refills Medications Medication SIG (Take, Route, Frequency, Duration) Notes Start Date End Date Status Trelegy Ellipta 200-62.5-25 MCG/ACT 1 puff Inhalation Once a day for 30 days Active Encounters Encounter Location Date Provider Diagnosis [address] [address] 11/08/2024 Ifeoma Ruiz Severe persistent asthma, uncomplicated J45.50 Assessments Encounter Date Diagnosis (ICD Code) Assessment Notes Treatment Notes Treatment Clinical Notes Section Notes 11/08/2024 Severe persistent asthma, uncomplicated (ICD-10 - J45.50) Plan Of Treatment Medication Medication Name Sig Start Date Stop Date Notes Trelegy Ellipta 200-62.5-25 MCG/ACT 1 puff Inhalation Once a day for 30 days Next Appt Details Provider Name:Higinio Mcpherson , 12/07/2024 07:30:00 AM, [address], [place], [address], Provider Name:Mark Ellsworth, 01/04/2025 02:45:00 PM, [address], [place], [address], Progress Notes * Eric LEOSiDOB:1970 (54 yo F)Acc No.[id number]:11/08/2024 Patient: Angie CABRERA :1970 A ge:54 Y S ex:Female Address:[address] [place] [address], [place] [address] * Refills Refill Trelegy Ellipta Aerosol Powder Breath Activated, 200-62.5-25 MCG/ACT, Inhalation, 1, 1 puff, Once a day, 30 days, Refills=2 * true * Date: Generated for Max hernandez/Erinn/Annieitting on: 0 11/16/2024 08:22 AM CDT
--- OUTSIDE RECORDS SUMMARY | 2024-11-16 08:23 | XMS_ITS | Continuity of Care Document ---
Author Organization [facility] Address [address] [place] [address] utive [facility] [address] [place] [address] Phone Care Team Providers Care Underwater Hunter Trapper Name Role Phone Ayala OD, Dereje Unavailable Unavailable Procedures Procedure Date Eye Exam, New Patient Refraction Advance Directives Directive Yes / No Effective Date File Name No Information Encounters Encounter Description Practice Location Reason(s) For Visit Diagnoses Date Provider Providers Copied on Encounter [facility], [address] [place] [address] [address], [place], [place], [id number], [place] tel:[phone] [facility] No Information [phone] Ayala OD Dereje. [address] [facility] [address] , [address], [place], [address], [place]. tel:[phone] Family History Family Member Type Diagnosis Age At Onset No Information Payers Payer name Insurance type Covered constitution party ID Authoriza tion(s) Medicaid [facility] [id number] Social History Type Description Quantity Date Captured [...]
--- OUTSIDE RECORDS SUMMARY | 2024-11-16 08:23 | XMS_ITS ---
Author Organization [facility] ([phone]) Address [address] [facility] [[email or web address]] [address] [place] [address] Care Team Providers Care Shiatsu Therapist Name Role Phone UgoYannick mohr Unavailable [phone] Michael Gleason Unavailable Unavailable Higinio Mcpherson Unavailable [phone] REASON FOR VISIT Asthma w/o mention of status asthmaticus or acute exacerbation follow-up, TEZSPIRE administration scheduled today, Needs evaluation for pre-TEZSPIRE health questionaire to assess health status and medication review Medications Medication SIG (Take, Route, Frequency, Duration) Notes Start Date End Date Status MONTELUKAST 10 mg 1 tab(s) orally once a day Active Tezspire 210 MG/1.91ML as directed Subcutaneous once for 28 days Active SPIRIVA RESPIMAT 1.25 mcg/inh 2 puff(s) inhaled once a day Active ALBUTEROL 90 mcg/inh 2 puff(s) inhaled every 6 hours Active ADVAIR HFA 230 mcg-21 mcg 2 puff(s) inhaled 2 times a day Active NASAL WASHES N/A as directed intranasally as needed for 30 days Active Trelegy Ellipta 200-62.5-25 MCG/ACT 1 puff Inhalation Once a day for 30 days Active FLUTICASONE NASAL 50 mcg/inh 2 spray(s) in each nostril twice a day for 30 days Active AZELASTINE NASAL 137 mcg/inh 2 spray(s) intranasally 2 times a day for 30 days Active CETIRIZINE 10 mg 1 tab(s) orally once a day for 30 days Active Pneumovax 23 - 0.5 ML INTRAMUSCULARLY ONCE for 1 DOSE(S) *Please review and pick correct strength-formul ation from [employer]oMedan options. If intended option is not shown, discontinue and re-order from Quick Search* 4 Not-Taking D3-50 1250 MCG 1 CAP(S) ORALLY ONCE A WEEK for 60 DAYS *Please review and pick correct strength-formul ation from [employer] options. If intended option is not shown, discontinue and re-order from Quick Search* 4 Not-Taking Azelastine HCl 137 MCG/SPRAY 2 spray(s) intranasally 2 times a day Not-Taking TEZSPIRE PRE-FILLED PEN ekko 210 mg/1.91 mL as directed subcutaneously every 4 weeks Not-Taking D3-50 1250 mcg 1 cap(s) orally once a week for 60 days Not-Taking Fluticasone Propionate 50 MCG/ACT 1 spray(s) in each nostril once a day Not-Taking Mupirocin 2 % 1 sara applied topically 3 times a day Not-Taking Budesonide-Formoterol Fumarate 160-4.5 MCG/ACT 2 puff(s) inhaled 2 times a day Not-Taking Azelastine HCl 137 MCG/SPRAY 2 spray(s) intranasally 2 times a day for 30 days Not-Taking Symbicort 160-4.5 MCG/ACT 2 puff(s) inhaled 2 times a day Not-Taking BACLOFEN 10 mg 1 tab(s) orally 3 times a day Not-Taking TORSEMIDE 20 mg 1 tab(s) orally once a day Not-Taking AZELASTINE NASAL 137 mcg/inh 2 spray(s) intranasally 2 times a day Not-Taking HYDROCHLOROTHIAZIDE 12.5 mg 1 cap(s) orally once a day Not-Taking FLUTICASONE NASAL 50 mcg/inh 1 spray(s) in each nostril once a day Not-Taking FERROUS SULFATE Not- Taking MUPIROCIN TOPICAL 2% 1 sara applied topically 3 times a day Not-Taking BUSPIRONE 10 mg 1 tab(s) orally 2 times a day Not-Taking OMEPRAZOLE 40 mg 1 cap(s) orally once a day Not-Taking BUDESONIDE-FORMOTEROL 160 mcg-4.5 mcg/inh 2 puff(s) inhaled 2 times a day Not-Taking SYMBICORT 160 mcg-4.5 mcg/inh 2 puff(s) inhaled 2 times a day Not-Taking AZELASTINE NASAL 137 mcg/inh 2 spray(s) intranasally 2 times a day for 30 day(s) 4 Not-Taking EPIPEN 2-LEELA 0.3 mg as directed intramuscularly once for 30 days 4 Not-Taking FLUTICASONE NASAL 50 mcg/inh 2 spray(s) in each nostril BID for 30 day(s) 4 Not-Taking CETIRIZINE 10 mg 1 tab(s) orally once a day for 30 days 4 Not-Taking busPIRone HCl 10 MG 1 tab(s) orally 2 times a day Not-Taking PNEUMOVAX 23 - 0.5 mL intramuscularly once for 1 dose(s) Not-Taking Spiriva Respimat 1.25 MCG/ACT 2 puff(s) inhaled once a day Not-Taking Montelukast Sodium 10 MG 1 tab(s) orally once a day Not-Taking ACTHIB (HIB) - 0.5 mL intramuscularly once for 1 dose(s) Not-Taking Baclofen 10 MG 1 tab(s) orally 3 times a day Active Amoxicillin-Pot Clavulanate 875-125 MG 1 tablet Orally every 12 hrs for 10 days Not-Taking Advair HFA 230 MCG-21 MCG 2 PUFF(S) INHALED 2 TIMES A DAY *Please review and pick correct strength-formul ation from [employer] options. If intended option is not shown, discontinue and re-order from Quick Search* Not-Taking Torsemide 20 MG 1 tab(s) orally once a day Active Amitriptyline HCl 25 MG TAKE 1 TABLET BY MOUTH ONCE NIGHTLY Oral for 90 Days Active Omeprazole 40 MG 1 cap(s) orally once a day Active hydroCHLOROthiazide 12.5 MG 1 cap(s) orally once a day Active EpiPen 2-Leela 0.3 MG/0.3ML as directed intramuscularly once for 30 days 4 Active Ferrous Sulfate *Please review and pick correct strength-formul ation from [employer] options. If intended option is not shown, discontinue and re-order from Quick Search* Active Albuterol Sulfate HFA 108 (90 Base) MCG/ACT 2 puff(s) inhaled every 6 hours Active Fluticasone Propionate 50 MCG/ACT 2 spray(s) in each nostril twice a day for 30 days Active Fluconazole 150 MG 1 tablet Orally once then another 72 hours later for 2 days Active Cetirizine HCl 10 MG 1 tab(s) orally once a day for 30 days Active Vitamin D3 125 MCG (5000 UT) 1 capsule Orally Once a day for 30 day(s) Active Vital Signs Blood pressure systolic 137 mm Hg 11/10/19 25 Blood pressure diastolic 81 mm Hg 025 Height 63 in 11/09/2024 Oximetry 99 % 11/09/2024 Encounters Encounter Location Date Provider Diagnosis [facility] [address] [place] [address] 11/09/2024 Higinio Mcpherson Severe persistent asthma, uncomplicated J45.50 Assessments Encounter Date Diagnosis (ICD Code) Assessment Notes Treatment Notes Treatment Clinical Notes Section Notes 11/09/2024 Severe persistent asthma, uncomplicated (ICD-10 - J45.50) 11/09/2024 Other Plan Of Treatment Next Appt Details Follow Up: As scheduled for tezspire, Reason: Provider Name:Higinio Mcpherson , 12/07/2024 07:30:00 AM, [address] [place] [address], [id number], Provider Name:Mark Ellsworth, 01/04/2025 02:45:00 PM, [address], [place], [address], Procedure Notes * Category Sub-Category Detail Notes TEZSPIRE (tezepelumab-ekko) Administration Dosing Time / Vitals Sriram Padilla 11/09/2024 07:39:33 AM CDT >, See initial vitals Dose Concentration/Dosing : 210 mg (110 mg/mL) / 1.91 mL subcutaneous injection Location AUNG Reaction None Frequency Interval:: Monthly Lot Number / Expiration Lot Number:[id number], Expiration:01/01/2026 Post-procedural check-out: Vital signs t aken 30 minutes after dosing:BP:141/77 HR:102 02:96 Medication Source TEZSPIRE Source: [facility] (Insurance-provided) Source Verification:: Who pulled drug (p lease type staff name in notes)? Michelle Medical necessity for in-off ice administration The patient or caregiver is not suitable , not competent or is physically unable to administer the TEZSPIRE product for the following reason(s):: patient or caregiver needs continued training on device use, Accordingly, the patient requires direct monitoring and administration by a healthcare professional Progress Notes * Eric LEOSiDOB:1970 (54 yo F)Acc No.[id number]:11/09/2024 TEZSPIRE Only Patient: Angie CABRERA Provider: Sheeba Mcpherson MD :1970 A ge:54 Y S ex:Female Date:11/09/2024 Address:[address] [place], [place] [id number] Subjective: * Chief Complaints: * A sthma w/o mention of status asthmaticus or acute exacerbation follow-up, TEZSPIRE administration scheduled todayNeeds evaluation for pre-TEZSPIRE health questionaire to assess health status and medication review * HPI: * Introduction: The patient is here for scheduled immunotherapy with TEZSPIRE. Please see the attached specialty form regarding the specifics of the administration of this medication. As per our protocol, they must undergo a screening health questionnaire (medication changes, reaction(s) to last immunotherapy dose(s), current health status, ACT (if appropriate), self-injectable epinephrine on patient(?) and peak flow (if appropriate)). * Medical History: * Surgical History: * Hospitalization/Major Diagno stic Procedure: * Medications: T akingCETIRIZINE 10 mg tablet 1 tab(s) orally once [...] tablet 1 tab(s) orally once a day Tezspire 210 MG/1.91ML Solution Prefilled Syringe as directed Subcutaneous once Vitamin D3 125 MCG (5000 UT) Capsule 1 capsule Orally Once a day Fluconazole 150 MG Tablet 1 tablet Orally once then another 72 hours later Cetirizine HCl 10 MG Tablet 1 tab(s) orally once a day Fluticasone Propionate 50 MCG/ACT Suspension 2 spray(s) in each nostril twice a day Albuterol Sulfate HFA 108 (90 Base) MCG/ACT Aerosol Solution 2 puff(s) inhaled every 6 hours EpiPen 2-Leela 0.3 MG/0.3ML Solution Auto-injector as directed intramuscularly once Ferrous Sulfate , Notes to Pharmacist: *Please review and pick correct strength-formulation from [employer] options. If intended option is not shown, [...] 1 TABLET BY MOUTH ONCE NIGHTLY Oral Trelegy Ellipta 200-62.5-25 MCG/ACT Aerosol Powder Breath Activated 1 puff Inhalation Once a day Taking CETIRIZINE 10 mg tablet 1 tab(s) orally once a day Taking FLUTICASONE NASAL 50 mcg/inh spray 2 spray(s) in each nostril twice a day Taking AZELASTINE NASAL 137 mcg/inh spray 2 spray(s) intranasally 2 times a day Taking NASAL WASHES N/A 1 quart of sterilized tap water or distilled water, 1 tsp NaCl, 1 pinch of baking soda as directed intranasally as needed Taking ADVAIR HFA 230 mcg-21 mcg aerosol 2 puff(s) inhaled 2 times a day Taking SPIRIVA RESPIMAT 1.25 mcg/inh aerosol 2 puff(s) inhaled once a day Taking ALBUTEROL 90 mcg/inh aerosol 2 puff(s) inhaled every 6 hours Taking MONTELUKAST 10 mg tablet 1 tab(s) orally once a day Taking Tezspire 210 MG/1.91ML Solution Prefilled Syringe as directed Subcutaneous once Taking Vitamin D3 125 MCG (5000 UT) Capsule 1 capsule Orally Once a day Taking Fluconazole 150 MG Tablet 1 tablet Orally once then another 72 hours later Taking Cetirizine HCl 10 MG Tablet 1 [...] *Please review and pick correct strength-formulation from Beach[employer] options. If intended option is not shown, [...] Activated 1 puff Inhalation Once a day Not-Taking/PRNAmoxicillin-Pot Clavulanate 875-125 MG Tablet 1 tablet Orally every 12 hrs Advair HFA 230 MCG-21 MCG AEROSOL 2 PUFF(S) INHALED 2 TIMES A DAY , Notes to Pharmacist: *Please review and pick correct strength-formulation from [employer] options. If intended option is not shown, discontinue and re-order from Quick Search*Spiriva Respimat 1.25 MCG/ACT Aerosol Solution 2 puff(s) inhaled once a day Montelukast Sodium 10 MG Tablet 1 tab(s) orally once a day busPIRone HCl 10 MG Tablet 1 tab(s) orally 2 times a day PNEUMOVAX 23 - solution 0.5 [...] kit as directed intramuscularly once SYMBICORT 160 mcg- 4.5 mcg/inh aerosol 2 puff(s) inhaled 2 times a day FERROUS SULFATE MUPIROCIN TOPICAL 2% ointment 1 asra applied topically 3 times a day OMEPRAZOLE [...] *Please review and pick correct strength-formulation from Ub[employer]ig[employer]pan options. If intended option is not shown, discontinue and re-order from Quick Search*D3-50 1250 MCG CAPSULE 1 CAP(S) ORALLY ONCE A WEEK , Notes to Pharmacist: *Please review and pick correct strength-formulation from Ub[employer]igentspan options. If intended option is not shown, discontinue and re-order from Quick Search*TEZSPIRE PRE-FILLED PEN ekko 210 mg/1.91 mL solution as directed subcutaneously every 4 weeks D3-50 1250 mcg capsule 1 cap(s) orally once a week Not-Taking/PRN Amoxicillin-Pot Clavulanate 875-125 MG Tablet 1 [...] tab(s) orally 2 times a day Not-Taking/PRN PNEUMOVAX 23 - solution 0.5 mL intramuscularly once Not- Taking/PRN ACTHIB (HIB) - powder for [...] 2 times a day Not-Taking/PRN FERROUS SULFATE Not- Taking/PRN MUPIROCIN TOPICAL 2% ointment 1 sara applied topically 3 times a day Not- Taking/PRN OMEPRAZOLE 40 mg delayed release capsule 1 cap(s) orally once a day Not- Taking/PRN BUDESONIDE-FORMOTEROL 160 mcg-4.5 mcg/inh aerosol 2 puff(s) [...] day Not-Taking/PRN Mupirocin 2 % Ointment 1 sraa applied topically 3 times a day Not-Taking/PRN [...] *Please review and pick correct strength-formulation from Ubiquigentspan options. If intended option is not shown, discontinue and re-order from Quick Search*Not-Taking/PRN D3-50 1250 MCG CAPSULE 1 CAP(S) ORALLY ONCE A WEEK , Notes to Pharmacist: *Please review and pick correct strength-formulation from Ubiquigentspan options. If intended option is not shown, discontinue and re-order from Quick Search*Not-Taking/PRN TEZSPIRE PRE-FILLED PEN ekko 210 mg/1.91 mL solution as directed subcutaneously every 4 weeks Not-Taking/PRN D3-50 1250 mcg capsule 1 cap(s) orally once a week Objective: * Vitals: B P:137/81mm Hg, HR:94/min, Pulse Oximetry:99%, ACT:24, Ht: 63 in. Assessment: * Assessment: 1. S evere persistent asthma, uncomplicated - J45.50 (Primary) Plan: * Treatment: * Procedures: T EZSPIRE (tezepelumab-ekko) Administration: Dosing Time / Vitals Sriram Valerio 11/09/2024 07:39:33 AM CDT >, See initial vitals. Dose C oncentration/Dosing 2 10 mg (110 mg/mL) / 1.91 mL subcutaneous injection Location R UA. Reaction N one. Frequency I nterval: M suleman Lot Number / Expiration L ot Number:[id number], Expiration:01/01/2026. Post-procedural check-out: V ital signs taken 30 minutes after dosing:BP:141/77 HR:102 0 2:96. Medication Source T EZSPIRE [facility] ([facility]-provided) S jad Verification: W allan pulled drug (please type staff name in notes)? Michelle Medical necessity for in-contract post office clerk T he patient or caregiver is not suitable, not competent or is physically unable to administer the TEZSPIRE product for the following reason(s): patient or caregiver needs continued training on device use, Accordingly, the patient requires direct monitoring and administration by a healthcare professional * Procedure Codes: 9 6160 PT-FOCUSED HLTH RISK [id number] THER/PROPH/DIAG INJ, SC/IM * Follow Up: A s scheduled for tezspire * Billing Information: * Visit Code: * Procedure Codes: 81530 PT-FOCUSED HLTH RISK ASSMT. 98036 THER/PROPH/DIAG INJ, SC/IM. * Sign off status: Completed true * Provider: Sheeba Mcpherson MD Date: 11/09/2024 Generated for Max hernandez/Erinn/Isidro on: 0 11/16/2024 08:22 AM CDT History and Physical Notes * HPI (History of Present Illness) Category Sub-Category Detail Notes Category Not es *Introduction The patient is here for scheduled immunotherapy [...]
--- OUTSIDE RECORDS SUMMARY | 2024-11-16 08:23 | XMS_ITS | Encounter Summary ---
Author Organization [facility] Address [facility] [place] [address] Care Team Providers Care Marine Equipment Research Engineer Name Role Phone Doreen Mae APRN-LEAD TECHNOLOGIST IN CYTOGENETICS Primary Care Provider + Celia Carson PA-C Primary Care Provider + Reason for Visit * Reason Onset Date Comments MEDICATION REFILL 02/27/2019 MEDICATION REFILL 03/28/2019 Encounter Details Date Type Department Care Team (Late st Contact Info) Description 02/27/2019 Refill [facility] [address] [facility] [address] [place] [address] Doreen Mae, WASHROOM ATTENDANT-LEAD TECHNOLOGIST IN CYTOGENETICS [address] OF [facility] [place] [address] MEDICATION REFILL; MEDICATION REFILL Social History Tobacco [...] encounter Miscellaneous Notes * Telephone Encounter - Julian Yumi - 02/27/2019 8:02 AM CDT Refill request sent per protocol to provider PAMELLA 11-29-18 NOV 01-24-19 Â documented in this encounter Plan of Treatment Not on file documented as of this encounter Visit Diagnoses Diagnosis Primary osteoarthritis of both knees Primary localized osteoarthrosis, lower leg documented in this encounter Care Teams Marine Equipment Research Engineer Relationship Specialty Start Date End Date Doreen Mae, ASHLEY-LEAD TECHNOLOGIST IN CYTOGENETICS [address] [place] [address] PCP - General Nurse Practitioner 09/27/18 12/03/20 Celia Carson PA-C [address] [place] [address] PCP - General 12/04/20 documented as of this encounter
--- OUTSIDE RECORDS SUMMARY | 2024-11-16 08:23 | XMS_ITS | Encounter Summary ---
Author Organization [facility] Address [facility] [place] [address] Care Team Providers Care Career Placement Specialist Name Role Phone Doreen Mae APRN-DIRECT CASTING OPERATOR Primary Care Provider + Celia Carson PA-C Primary Care Provider + Reason for Visit * Reason Onset Date Comments MEDICATION REFILL 02/20/2019 MEDICATION REFILL 02/27/2019 Encounter Details Date Type Department Care Team (Late st Contact Info) Description 02/20/2019 Refill [facility] [address] [facility] [address] [place] [address] Doreen Mae, CREDIT UNION FIELD EXAMINER-DIRECT CASTING OPERATOR [address] OF [facility] [place] [address] MEDICATION REFILL; MEDICATION REFILL Social History Tobacco [...] Notes * Telephone Encounter - JulianYumi - 02/20/2019 8:39 AM CDT Refill request sent per protocol to provider PAMELLA 11-29-18 NOV 01-24-19 Â documented in this encounter Plan of Treatment Not on file documented as of this encounter Visit Diagnoses Diagnosis Anxiety and depression Dysthymic disorder documented in this encounter Care Teams Career Placement Specialist Relationship Specialty Start Date End Date Doreen Mae, ASHLEY-DIRECT CASTING OPERATOR [address] [place] [address] PCP - General Nurse Practitioner 09/27/18 12/03/20 Celia Carson PA-C [address] [place] [address] PCP - General 12/04/20 documented as of this encounter
--- OUTSIDE RECORDS SUMMARY | 2024-11-16 08:23 | XMS_ITS | Clinical Summary ---
Author Organization [facility] [facility] Address [address] [place] [address] Care Team Providers Care Collection Clerk Name Role Phone Marilyn Augustin NP Primary Care Provider [phone] Allergies Active Allergy Reactions Criticality Noted Date Comments Nickel Swelling,Itching,Unknown Medium 03/29/2020 Medications blood pressure kit-extra large kitIndications:Ess ential hypertension 1 each daily 1 kit 06/16/20 21 Active azelastine (ASTELIN) 137 mcg (0.1 %) nasal spray Administer 2 sprays into each nostril 2 (two) times a day Use in each nostril as directed 30 mL 3 02/06/20 22 Active EPINEPHrine 0.3 mg/0.3 mL auto-injection syringe INJECT 0.3 ML INTO THE MUSCLE INSTRUCTED ONCE FOR 1 DOSE 1 each 1 06/08/20 22 Active tretinoin (RETIN-A) 0.01 % gelIndications:Acn e, unspecified acne type APPLY TO AFFECTED AREA AT NIGHT 45 g 2 08/05/19 23 Active levalbuterol (XOPENEX) 1.25 mg/3 mL nebulizer solutionIndication s:Severe persistent asthma, unspecified whether complicated (HCC) Take 3 mL (1.25 mg total) by nebulization every 6 (six) hours as needed for wheezing or shortness of breath 180 mL 3 10/01/19 23 Active Spiriva with HandiHaler 18 mcg per inhalation capsuleIndications :Severe persistent asthma, uncomplicated (HCC) Place 1 puff (1 capsule total) into inhaler and inhale daily 30 capsule 10/24/19 23 Active mupirocin (BACTROBAN) 2 % ointment 10/23/19 23 Active Antacid Regular Strength 200-200-20 mg/5 mL suspension 11/06/19 23 Active amLODIPine (NORVASC) 5 mg tabletIndications: Hypertension, essential TAKE 1 TABLET(5 MG) BY MOUTH DAILY 90 tablet 1 05/31/20 23 Active fluticasone propion-salmeteroL (ADVAIR HFA) 230-21 mcg/actuation inhaler Inhale 2 puffs 2 (two) times a day Rinse mouth with water after use. Do not swallow. Active baclofen (LIORESAL) 10 mg tabletIndications: Chronic bilateral low back pain with bilateral sciatica TAKE 1 TABLET(10 MG) BY MOUTH THREE TIMES DAILY 90 tablet 08/09/19 24 Active ferrous sulfate 325 mg (65 mg of elemental iron) tablet Take 1 tablet (65 mg of elemental iron total) by mouth daily with breakfast 90 tablet 1 08/11/19 24 Active cetirizine (ZyrTEC) 10 mg tablet Take 1 tablet (10 mg total) by mouth daily 90 tablet 1 08/11/19 24 Active meclizine (ANTIVERT) 12.5 mg tabletIndications: Dizziness Take 1 tablet (12.5 mg total) by mouth 3 (three) times a day as needed for dizziness 90 tablet 08/19/19 24 Active Tezspire 210 mg/1.91 mL (110 mg/mL) pen injector INJECT 210MG SUBCUTANEOUSLY EVERY 4 WEEKS 1.91 mL 08/31/19 24 Active albuterol 2.5 mg /3 mL (0.083 %) nebulizer solutionIndication s:Asthma, unspecified asthma severity, unspecified whether complicated, unspecified whether persistent USE 1 VIAL VIA NEBULIZER EVERY 6 HOURS NEEDED FOR WHEEZING OR SHORTNESS OF BREATH 300 mL 4 09/13/[address] (CYMBALTA) 30 mg capsuleIndications :Anxiety with Depression,Chronic Musculoskeletal Pain Take 1 capsule (30 mg total) by mouth daily 90 capsule 1 11/25/19 24 Active albuterol HFA (PROVENTIL HFA,VENTOLIN HFA,PROAIR HFA) 90 mcg/actuation inhaler INHALE 2 PUFFS BY MOUTH EVERY 4 HOURS NEEDED FOR WHEEZING OR SHORTNESS OF BREATH 25.5 g 2 12/07/[address] (CYMBALTA) 60 mg capsuleIndications :Anxiety TAKE 1 CAPSULE(60 MG) BY MOUTH DAILY 90 capsule 1 12/21/19 24 Active montelukast (SINGULAIR) 10 mg tabletIndications: Seasonal allergies Take 1 tablet (10 mg total) by mouth daily 30 tablet 1 05/02/20 24 Active omeprazole (PriLOSEC) 40 mg capsuleIndications :Gastroesophageal reflux disease without esophagitis Take 1 capsule (40 mg total) by mouth daily 90 capsule 1 06/12/20 24 Active torsemide (DEMADEX) 20 mg tabletIndications: Localized edema Take 1 tablet (20 mg total) by mouth daily 90 tablet 1 06/12/20 24 Active amitriptyline (ELAVIL) 25 mg tablet TAKE 1 TABLET BY MOUTH ONCE NIGHTLY 100 tablet 09/10/19 25 Active fluticasone propionate (FLONASE) 50 mcg/actuation nasal sprayIndications:S easonal allergies SPRAY 2 SPRAYS INTO EACH NOSTRIL EVERY DAY 16 mL 1 10/10/19 25 Active Active Problems Problem Noted Date Diagnosed Date Seasonal allergies 05/02/2024 Acute bilateral low back pain without sciatica 0 08/11/2023 Chronic pain syndrome 08/11/2023 Overview (08/11/2023): Continue Cymbalta 90 mg daily as directed Chronic bilateral low back pain with bilateral s ciatica 06/09/2023 Assessment & Plan (06/09/2023 9:42 AM ELECTRONIC CONTROLS REPAIRER SUPERVISOR): This is a significant, separately identifiable problem that was evaluated and managed on the same day as the wellness exam Physical exam, annual 04/07/2023 Functional diarrhea 02/08/2023 Acute on chronic respiratory failure with hypoxi a 02/08/2023 Excessive hair growth 11/05/2022 Thrush, oral 11/05/2022 Arthritis of both knees 09/27/2022 11/06/19 Acne 09/27/2022 11/05/2022 Mixed anxiety and depressive [...] 5:30 PM CDT): She has appt with satellite manager pending that she will keep Trigger ring [...] 8:21 PM CDT): Has pending referral to satellite manager that she will keep Will evaluate further [...] 08/01/2021 Assessment & Plan (08/01/2021 9:59 AM ELECTRONIC CONTROLS REPAIRER SUPERVISOR): Resume prn torsemide. We discussed if using routinely will need bun/cr and K levels drawn in the next 3-4w. She anticipates 1-2x/week but will let us know if increasing to daily. Leg pain, bilateral 08/01/2021 Assessment & Plan (08/01/2021 9:59 AM ELECTRONIC CONTROLS REPAIRER SUPERVISOR): Will evaluate further with US of bilateral legs Elevated antinuclear antibody (RODRIGO) level 2020 Assessment & Plan (10/09/2021 12:09 PM CDT): Will restart cymbalta We reviewed autoimmune labs, will refer to rheumatology Assessment & Plan (08/01/2021 9:57 AM ELECTRONIC CONTROLS REPAIRER SUPERVISOR): Has pending lab work for Dr. Bunch that she will complete She reports when she called her insurance she was told that there might be a provider in network for rheumatology in [facility] - will try a different location. Assessment & Plan (06/20/2021 11:43 AM ELECTRONIC CONTROLS REPAIRER SUPERVISOR): We reviewed recent labs Will refer to rheum for further evaluation and treatment Pulmonary artery hypertension 06/03/2021 Assessment & Plan (08/01/2021 9:56 AM ELECTRONIC CONTROLS REPAIRER SUPERVISOR): Continue care with pulmonology Advised her to reschedule with cardiology Assessment & Plan (06/20/2021 11:43 AM ELECTRONIC CONTROLS REPAIRER SUPERVISOR): Continue with hctz daily Assessment & Plan (06/03/2021 7:01 PM ELECTRONIC CONTROLS REPAIRER SUPERVISOR): Advised attempts at bp control Will refer to cv for further evaluation and treatment Chronic neck pain 06/03/2021 Assessment & Plan (06/20/2021 11:43 AM ELECTRONIC CONTROLS REPAIRER SUPERVISOR): Will refer to closer orthopedist for her commute Assessment & Plan (06/03/2021 7:00 PM ELECTRONIC CONTROLS REPAIRER SUPERVISOR): Advised referral to specialist, will help her arrange Cervical radiculopathy 06/03/2021 Assessment & Plan (06/03/2021 7:00 PM ELECTRONIC CONTROLS REPAIRER SUPERVISOR): Advised referral, will help her arrange Need [...] to Psychiatry for further evaluation and treatment. Obesity, morbid, BMI 40.0-49.9 09/25/2020 Assessment & Plan (11/01/2024 7:08 AM CDT): Discussed the patient's BMI. The BMI is above average. BMI management plan is completed. BMI Follow-up includes: nutrition counseling, exercise counseling and education provided. Assessment & Plan (05/02/2024 7:24 AM CDT): Discussed the patient's BMI. The BMI is above average. BMI management plan is completed. BMI Follow-up includes: nutrition counseling, exercise counseling and education provided. Assessment & Plan (06/09/2023 9:18 AM ELECTRONIC CONTROLS REPAIRER SUPERVISOR): Discussed the patient's BMI. The BMI is [...] provided. Assessment & Plan (08/01/2021 9:57 AM ELECTRONIC CONTROLS REPAIRER SUPERVISOR): Obesity is unchanged. Discussed the patient's BMI. The BMI is above average. BMI management plan is completed. BMI Follow-up includes: nutrition counseling, exercise counseling and education provided. Assessment & Plan (06/20/2021 11:43 AM ELECTRONIC CONTROLS REPAIRER SUPERVISOR): Obesity is unchanged. Discussed the patient's BMI. [...] 5:31 PM CDT): We reviewed notes from skeiner. She is going to call her current oxygen company and order a current supply as she is not certain she can walk down the hallway in the hospital for her 6min walk. She will communicate with the skeiner regarding these concerns. Assessment & Plan (01/01/2022 6:43 PM CDT): Continue with oxygen, she reports that she has refills at home. Assessment & Plan (12/03/2021 8:20 PM CDT): Continue care per pulmonology, refill meds as needed Assessment & Plan (10/09/2021 12:08 PM CDT): Continue with care per pulmonology Continue with bpap Assessment & Plan (08/01/2021 9:57 AM ELECTRONIC CONTROLS REPAIRER SUPERVISOR): Continue with care per Dr. Bunch Assessment & Plan (06/03/2021 7:00 PM ELECTRONIC CONTROLS REPAIRER SUPERVISOR): Continue with care per pulm Assessment & Plan (05/01/2021 11:39 AM CDT): Continue with care per skeiner Has pending sleep eval that she will keep rf meds as needed Assessment & Plan (09/25/2020 3:07 PM CDT): Retrieve records from skeiner, continue care same at this time. Essential hypertension 09/25/2020 Assessment & Plan (06/03/2021 6:58 PM ELECTRONIC CONTROLS REPAIRER SUPERVISOR): Add daily hctz Discontinue inderal Advised monitoring [...] 09/27/2018 Assessment & Plan (06/20/2021 11:44 AM ELECTRONIC CONTROLS REPAIRER SUPERVISOR): Will refer to closer orthopedist for her [...] provided. Assessment & Plan (08/11/2023 8:47 AM ELECTRONIC CONTROLS REPAIRER SUPERVISOR): Discussed the patient's BMI. The BMI is [...] 09/08/2021 Assessment & Plan (08/01/2021 9:58 AM ELECTRONIC CONTROLS REPAIRER SUPERVISOR): Due for screening and wants to see satellite manager (her previous MD has left the area). Will refer to Dr. Barreto for further assistance. Otalgia, right 06/20/2021 01/19/2022 Assessment & Plan (06/20/2021 11:43 AM ELECTRONIC CONTROLS REPAIRER SUPERVISOR): Will start on doxycycline Morbid obesity 06/20/2021 01/19/2022 Assessment & Plan (08/01/2021 9:57 AM ELECTRONIC CONTROLS REPAIRER SUPERVISOR): Obesity is unchanged. Discussed the patient's BMI. The BMI is above average. BMI management plan is completed. BMI Follow-up includes: nutrition counseling, exercise counseling and education provided. Assessment & Plan (06/20/2021 11:43 AM ELECTRONIC CONTROLS REPAIRER SUPERVISOR): Obesity is unchanged. Discussed the patient's BMI. [...] worsening. Assessment & Plan (06/20/2021 11:44 AM ELECTRONIC CONTROLS REPAIRER SUPERVISOR): Advised increased fluids, rest F/u in 1w if not improving, sooner if worsening Assessment & Plan (01/13/2021 9:22 AM CDT): She will continue with her nose spray per fabricator special items She will hold the mdp and not [...] can be of assistance. BMI 60.0-69.9, adult 09/27/201818/2 022 Assessment & Plan (10/09/2021 12:08 PM CDT): Obesity is unchanged. Discussed the patient's BMI. The BMI is above average. BMI management plan is completed. BMI Follow-up includes: nutrition counseling, exercise counseling and education provided. Assessment & Plan (06/03/2021 7:00 PM ELECTRONIC CONTROLS REPAIRER SUPERVISOR): Obesity is unchanged. Discussed the patient's BMI. The BMI is above average. BMI management plan is completed. BMI Follow-up includes: nutrition counseling, exercise counseling and education provided. Assessment & Plan (01/13/2021 9:22 AM CDT): She was advised weight loss. She was offered referral to [facility] bariatrics and declines at this time. Assessment & Plan (12/16/2020 9:48 AM CDT): Obesity is unchanged. Discussed the patient's BMI. The BMI is above average. BMI management plan is completed. BMI Follow-up includes: nutrition counseling, exercise counseling and education provided. Encounters Date Type Department Care Team Description 11/01/2024 7:00 AM CDT Office Visit [facility] Internal Medicine at [address] [place] [address] Marilyn Augustin NP Physical exam, annual (Primary Dx); BMI 40.0-44.9, adult (HCC); Obesity, morbid, BMI 40.0-49.9 (HCC) 10/31/2024 Orders Only [facility] Information [facility] [address] [place] [id number] Marilyn Augustin NP 10/17/2024 Telephone [facility] Family Medicine [address] [facility] [address] [place] [address] Marilyn Augustin NP from Last 3 [...] more points, staff should administer the PHQ-9) 1 11/01/2024 Exercise Vital Sign Answer Date Recorde d [...] on file Legal Sex Female 1:37 AM ELECTRONIC CONTROLS REPAIRER SUPERVISOR Gender Identity Not on file Sexual Orientation [...] Sign Reading Time Taken Comments Blood Pressure 120/70 11/01/2024 7:03 AM CDT Pulse 101 11/01/2024 7:03 AM CDT Temperature 36.7 C (98.1 F) 11/01/2024 7:03 AM CDT Respiratory Rate 16 06/09/2023 9:13 AM ELECTRONIC CONTROLS REPAIRER SUPERVISOR Oxygen Saturation 99% 11/01/2024 7:03 AM CDT Inhaled Oxygen Concentration - - Weight 106.6 kg (235 lb) 11/01/2024 7:03 AM CDT Height 160 cm (5' 3 ) 11/01/2024 7:03 AM CDT Body Mass Index 41.63 11/01/2024 7:03 AM CDT Plan of Treatment Health Maintenance Due Date Last Done Comments Cervical Cancer Screening 1970 Hepatitis B Screening 01/14/1990 Zoster Vaccine (1 of 2) 01/14/2022 Breast Cancer Screening-Mammogram 10/10/2022 10/10/2021, 08/27/2021, 05/02/2019 Pneumococcal vaccine <65 (2 of 2 - PCV) 11/06/2022 11/06/2021 Covid-19 Vaccine (2023-2 5 season) 2024 11/28/2020, 11/26/2020, 11/26/2020, Additional history exists Depression Screening 11/01/2025 11/01/2024, 05/02/2024, 12/08/2023, Additional history exists Regular Well Visit/Exam 18-64 11/01/2025, 12/08/2023, 06/09/2023, Additional history exists DTaP/Tdap/Td Vaccine (2 - Td or Tdap) 01/05/2026 01/06/2016 Colon Cancer Screening-Colonoscopy 03/10/20332022 Hepatitis C Screening Completed 01/20/2022 Influenza Vaccine Completed 05/02/2024, , 04/08/2022, Additional history exists Procedures Procedure Name Priority Date/Time Associated Diagnosis Comments SCAN - RADIOLOGY/IMAGING 10/31/2024 HEPATITIS PANEL, ACUTE Routine 01/20/2022 9:29 AM CDT Encounter for annual routine gynecological examination Screening for STD (sexually transmitted disease) MAMMOGRAPHY Routine 10/10/2021 from Last 3 Months or Most Recently Relevant to Health Maintenance Results * SCAN - RADIOLOGY/IMAGING (10/31/2024) Anatomical Region Laterality Modality Other us Marilyn Augustin NP Final Result * Hepatitis panel, acute (01/20/2022 9:29 AM CDT) Hep A IgM Nonreactive Nonreactive [facility] Comment: Interpretive Data: If Hep A IgM Ab is reported as Equivocal, a new sample should be drawn in two weeks for testing. Current interpretive data was last revised on 19. Hep B core IgM Nonreactive Nonreactive [facility] Comment: Interpretive Data If HepB Core IgM Ab is reported as Equivocal, a new sample should be drawn in two weeks for testing. Current interpretive data was last revised on 19. Hep C Ab Nonreactive Nonreactive [facility] Comment: Interpretive Data Nonreactive: Antibodies to HCV [...] - GENERAL ORDER HERVE Final Result [facility] [address] [facility] Department [place] [address] * MAMMOGRAPHY (10/10/2021) us Historical Provider HEALTH MAINTENANCE Final Result from Last 3 Months or Most Recently Relevant to Health Maintenance Insurance MEDICARE [facility]AGE [facility] MED[facility] Address: [id number] [place] [address] [facility] MEDICARE AD[facility]ANTAGE [facility] MEDIC[facility] Address: [id number] [place] [address] Care Teams Collection Clerk Relationship Specialty Start Date End Date Marilyn Augustin NP [address] [place] [address] PCP - General Internal Medicine 11/05/22
--- OUTSIDE RECORDS SUMMARY | 2024-11-16 08:23 | XMS_ITS | Encounter Summary ---
Author Organization [facility] Address [facility] [place] [address] Care Team Providers Care Garment Presser Name Role Phone Doreen Mae APRN-BANDAR Primary Care Provider + Celia Carson PA-C Primary Care Provider + Reason for Visit * Reason Onset Date Comments MEDICATION REFILL 03/28/2019 Encounter Details Date Type Department Care Team (Late st Contact Info) Description 03/28/2019 Refill [facility] [address] [facility] [address] [place] [address] Doreen Mae, WOOLEN TESTER-BASEBALL UMPIRE [employer] [address] OF [facility] [place] [address] MEDICATION REFILL Social History Tobacco Use Types [...] disorder documented in this encounter Care Teams Garment Presser Relationship Specialty Start Date End Date Doreen Mae APRN-CNP [facility] [place] [address] PCP - General Nurse Practitioner 09/27/18 12/03/20 Celia Carson PA-C [facility] [place] [address] PCP - General 12/04/20 documented as of this encounter
--- OUTSIDE RECORDS SUMMARY | 2024-11-16 08:23 | XMS_ITS ---
Author Organization [facility] [place] ([address]) Address [address] [facility] [address] [place] [address] Care Team Providers Care Heavy Equipment Field Mechanic Name Role Phone Yannick Glasgow Unavailable [phone] Michael Gleason Unavailable Unavailable REASON FOR VISIT [...] review and pick correct strength-formul ation from Packback options. If intended option is not shown, [...] review and pick correct strength-formul ation from Packback options. If intended option is not shown, discontinue and re-order from Quick Search* 4 Not-Taking D3-50 1250 MCG 1 CAP(S) ORALLY ONCE A WEEK for 60 DAYS *Please review and pick correct strength-formul ation from [employer]back options. If intended option is not shown, discontinue and re-order from Quick Search* 4 Not-Taking Fluticasone Propionate 50 MCG/ACT 1 spray(s) in each nostril once a day Not-Taking Mupirocin 2 % 1 asra applied topically 3 times a day Not-Taking [...] Not-Taking Encounters Encounter Location Date Provider Diagnosis [facility] [address] [address] 10/10/2024 Yannick Glasgow Allergic rhinitis du e [...] with Asthma at age 37 with first accounts payable representative. At the time she was experiencing [...] with Asthma at age 37 with first accounts payable representative. At the time she was experiencing [...] 4 Weeks, Reason: Evaluation and Management,TEZSPIRE Administration Provider Name:Higinio Mcpherson , 12/07/2024 07:30:00 AM, [address] [facility], [place], [address], Provider Name:Mark Ellsworth, 01/04/2025 02:45:00 PM, [facility] [address], [place], [address], Progress Notes * Eric LEOSiDOB:1970 (54 yo F)Acc No.[id number]:10/10/2024 TEZSPIRE Only Patient: Angie CABRERA Provider: Lisa Glasgow PA-C :1970 A ge:54 Y S ex:Female Date:10/10/2024 Address:[address] [place], [place] [phone] Subjective: * Chief Complaints: * 1 . [...] f/u with GI. * HPI: * Introduction: HPI: Enriqueta geovanny Leos, a 54 y/o female with history of HTN, chronic hypoxic respiratory failure on 2L PRN, GEORGE, Athma, ARC and fibromyalgia returning in consultation with Dr. Gleason, Retail Client Solutions Analyst, for interval evaluation and management; ready to continue Tezspire. She is alone for today's visit. She was formally diagnosed with Asthma at age 37 with first accounts payable representative. At the time she was experiencing [...] history of b loody stools. Follows with GI [facility] in search of a new provider. [...] patient(?) and peak flow (if appropriate)). A replaced by [facility] follow-up: Asthma Control Test (Adult - Age [...] er the HPI and history, otherwise unremarkable. runny nose Y es. s cratchy throat Y es. i tchy eyes Y es. e ar fullness No. s inus congestion Y es. S PECIAL SENSES: Positve for n one. c ataracts N o. g laucoma Yes. l oss of hearing N o. i tching in ears Y es. r inging in ears Y es. loss of balance N o. l oss of smell Y es. d ry eyes Y es. e xcessive tearing N o. l oss of taste N o. c onjunctivitis N o. e ar infections N o. C ONSTITUTIONAL: weight gain Y es. l oss of appetite N o. f ever No. w eakness Y es. w eight loss Y es. f atigue Y es. n ight sweats N o. P ositive for n one. E NT: cold N o. c ough Y es. e pistaxis N o. h earing loss N o. c hange in voice Y es. s ore throat N o. r inging in ears Yes. s inus pain N o. P ositive [...] atering N o. r edness N o. E NDOCRINOLOGY: fatigue Y es. p olydipsia Y es. p olyuria Y es. w eight loss Y es. s leep disturbance Y es. c old intolerance N o. h eat intolerance Y es. d iabetes N o. P ositive for n one. C ARDIOLOGY: chest pain N o. p alpitations N o. l eg edema Yes. d izziness N o. s hortness of breath Y es. P ositive for n one. G ASTROENTEROLOGY: abdominal pain Y es. n ausea N o. v omiting No. c onstipation N o. d iarrhea N [...] umps N o. d ry or sensitive skin No. h mega (urticaria) N o. a cne [...] s ciatica Y es. o steoporosis Y es. carpal tunnel Y es. P ositive for n [...] planning on a future pregancy? N o. A ll other review of systems per [...] *Please review and pick correct strength-formulation from [employer] options. If intended option is not shown, [...] *Please review and pick correct strength-formulation from [employer] options. If intended option is not shown, [...] *Please review and pick correct strength-formulation from [employer] options. If intended option is not shown, [...] . E ssential (primary) hypertension - I10 8. C hronic sinusitis, unspecified - J32.9 Plan: [...] Orally, Once a day, 30 day(s), 30. Notes: She has since finished 50K IU weekly. Plan to start 5K daily 7. E ssential (primary) hypertension Notes: BP elevated today without symptoms of urgency or emergency. Continue serial checks and follow-up with PCP 8. C hronic sinusitis, unspecified Notes: Recurrent sinus infections requiring abx multiple times a year meeting F criteria for modified PID work-up. Showing inadequate protection to S. pnumo and Hib. Advised obtianing boosters though would like to hold off given recent bloating * Procedure Codes: 9 6160 PT-FOCUSED HLTH RISK ASSMT, G8427 DOC MEDS VERIFIED W/PT OR RE, G9522 TOT #ED VST&IP=/>2 12 M/[place], [address] THER/PROPH/DIAG INJ, SC/IM * Preventive Medicine: Counseling: [...] TO ALTERNATIVE / PRIMARY CARE PROVIDER: Carin eferral to general practitioner * Follow Up: 4 Weeks (Reason: Evaluation and Management,TEZSPIRE Administration) * Billing Information: * Visit Code: 13881 Office Visit, Est Pt., Level 4. Modifiers: 25 * Procedure Codes: 94945 PT-FOCUSED HLTH RISK ASSMT. G8427 DOC MEDS VERIFIED W/PT OR RE. G9522 TOT #ED VST&IP=/>2 12 M/[place]. [address] THER/PROPH/DIAG INJ, SC/IM. * Electronic signature of Octavio Glasgow PA-C on 11/16/2024 at 08:22 AM CDT Sign off status: Pending * Provider: Lisa Glasgow PA-C Date: 0 10/10/2024 Generated for Max hernandez/Erinn/Isidro on: 0 11/16/2024 08:22 AM CDT History and Physical Notes * HPI (History of Present Illness) Category Sub-Category Detail Notes Category Notes *Introduction HPI: Angie Leos, a 54 y/o female with history of HTN, chronic hypoxic respiratory failure on 2L PRN, GEORGE, Athma, ARC and fibromyalgia returning in consultation with Dr. Gleason, Retail Client Solutions Analyst, for interval evaluation and management; ready to continue Tezspire. She is alone for today's visit. She was formally diagnosed with Asthma at age 37 with first accounts payable representative. At the time she was experiencing [...]
--- OUTSIDE RECORDS SUMMARY | 2024-11-16 08:23 | XMS_ITS | Clinical Summary ---
Author Organization [facility] Address [address] [place] [address] Care Team Providers Care Computer System Validation Specialist Name Role Phone Unavailable Primary Care Provider [...]
--- OUTSIDE RECORDS SUMMARY | 2024-11-16 08:23 | XMS_ITS | Encounter Summary ---
Author Organization [facility] Address [facility] [place] [address] Care Team Providers Care Warehouse Forklift Operator Name Role Phone Doreen Mae APRN-STOCK SAW OPERATOR Primary Care Provider + Celia Carson PA-C Primary Care Provider + Reason for Visit * Reason Onset Date Comments Appointment 11/29/2018 Encounter Details Date Type Department Care Team (Late st Contact Info) Description 11/29/2018 Telephone [facility] General Internal Medicine [address] [facility] [address] [place] [address] Doreen Mae, STEAMBOAT CAPTAIN-STOCK SAW OPERATOR [address] OF [employer] [place] [address] Appointment Social History Tobacco Use Types Packs/Day [...] voicemail to contact the scheduling department at [phone] Note: This is too soon to see me back. Â Please schedule patient with ACCESS SERVICES LIBRARIAN Christianne Leon Segura, or [facility] for later in the month, ideally around 12/22/18. To keep appointment with me 01/24/19, as well. * Telephone Encounter - Doreen Dsouza APRN-CNP - 12/01/2018 10:59 AM CDT This is too soon to see me back. Please schedule patient with ACCESS SERVICES LIBRARIAN Christianne Leon Segura, or [facility]is for later in the month, ideally around 12/22/18. To keep appointment with me 01/24/19, as well. Doreen Tompkins APRN-CNP * Telephone Encounter - Cathie Champagne [...] will need to be seen by another ACCESS SERVICES LIBRARIAN: Celia Avalos, Alexia Nation or Arti Leon or will need to be seen before I am out of the office. I do not need to see her monthly. However, if it is required for her weight loss surgery, she can be scheduled. ThanksDoreen APRN-CNP * Telephone Encounter - Zulema Schwartz - 11/29/2018 4:19 PM CDT Pt: Angie Sanchez#: [id number] Pt calling to verify her next appointment [...] on filedocumented in this encounter Care Teams Warehouse Forklift Operator Relationship Specialty Start Date End Date Doreen Mae APRN-CNP [address] [place], [place] [id number] PCP - General Nurse Practitioner 09/27/18 12/03/20 Celia Carson PA-C [address] [place] [address] PCP - General 12/04/20 documented as of this encounter
--- OUTSIDE RECORDS SUMMARY | 2024-11-16 08:23 | XMS_ITS | Encounter Summary ---
Author Organization [facility] Address [facility] [place] [address] Care Team Providers Care Social Media Specialist Name Role Phone Doreen Mae APRN-MULTIMEDIA PRODUCTION ASSISTANT Primary Care Provider + Celia Crason PA-C Primary Care Provider + Encounter Details Date Type Department Care Team (Late st Contact Info) Description 03/29/2019 Telephone [facility] [address] [place], [place] [id number] Doreen Mae, SPRINKLING SYSTEM IRRIGATOR-MULTIMEDIA PRODUCTION ASSISTANT [address] [place] [address] Social History Tobacco Use Types Packs/Day Years [...] allergy, as they are treating her forasthma. Doreen Tompkins APRN-CNP * Telephone Encounter - Gracia Plaza LPN [...] beforeher appointment tomorrow. Patient Call Back number: [phone] documented in this encounter Plan of Treatment Not on file documented as of this encounter Visit Diagnoses Not on filedocumented in this encounter Care Teams Social Media Specialist Relationship Specialty Start Date End Date Doreen Mae APRN-CNP [address] [place] [address] PCP - General Nurse Practitioner 09/27/18 12/03/20 Celia Carson PA-C [address] [place] [address] PCP - General 12/04/20 documented as of this encounter
--- OUTSIDE RECORDS SUMMARY | 2024-11-16 08:23 | XMS_ITS | Referral Summary ---
Author Organization [facility] [address] [facility] Address [address] [place] [address] Care Team Providers Care Tiger Machine Operator Name Role Phone Marilyn Augustin MANAGER OF DEVELOPMENT Primary Care Provider [phone] Encounters Date Type Department Care Team Description 11/01/2024 7:00 AM CDT Office Visit [facility] Medical [facility] Internal Medicine at [place] [address] [facility] [address] [place] [address] Marilyn Augustin NP Physical exam, annual (Primary Dx); BMI 40.0-44.9, adult (HCC); Obesity, morbid, BMI 40.0-49.9 (HCC) 10/31/2024 Orders Only [facility] Health Information Management [address] [place] [address] Marilyn Augustin NP 10/17/2024 Telephone [facility] Family Medicine [address] [facility] [address] [place] [address] Marilyn Augustin NP from Last 3 Months Allergies Active Allergy [...] 06/09/2023 Assessment & Plan (06/09/2023 9:42 AM CORPORATE STRATEGY ASSOCIATE): This is a significant, separately identifiable problem [...] 5:30 PM CDT): She has appt with solvent mixer pending that she will keep Trigger ring [...] 8:21 PM CDT): Has pending referral to solvent mixer that she will keep Will evaluate further [...] 08/01/2021 Assessment & Plan (08/01/2021 9:59 AM CORPORATE STRATEGY ASSOCIATE): Resume prn torsemide. We discussed if using routinely will need bun/cr and K levels drawn in the next 3-4w. She anticipates 1-2x/week but will let us know if increasing to daily. Leg pain, bilateral 08/01/2021 Assessment & Plan (08/01/2021 9:59 AM CORPORATE STRATEGY ASSOCIATE): Will evaluate further with US of bilateral legs Elevated antinuclear antibody (RODRIGO) level 2020 Assessment & Plan (10/09/2021 12:09 PM CDT): Will restart cymbalta We reviewed autoimmune labs, will refer to rheumatology Assessment & Plan (08/01/2021 9:57 AM CORPORATE STRATEGY ASSOCIATE): Has pending lab work for Dr. Bunch that she will complete She reports when she called her insurance she was told that there might be a provider in network for rheumatology in [facility] - will try a different location. Assessment & Plan (06/20/2021 11:43 AM CORPORATE STRATEGY ASSOCIATE): We reviewed recent labs Will refer to rheum for further evaluation and treatment Pulmonary artery hypertension 06/03/2021 Assessment & Plan (08/01/2021 9:56 AM CORPORATE STRATEGY ASSOCIATE): Continue care with pulmonology Advised her to reschedule with cardiology Assessment & Plan (06/20/2021 11:43 AM CORPORATE STRATEGY ASSOCIATE): Continue with hctz daily Assessment & Plan (06/03/2021 7:01 PM CORPORATE STRATEGY ASSOCIATE): Advised attempts at bp control Will refer to cv for further evaluation and treatment Chronic neck pain 06/03/2021 Assessment & Plan (06/20/2021 11:43 AM CORPORATE STRATEGY ASSOCIATE): Will refer to closer orthopedist for her commute Assessment & Plan (06/03/2021 7:00 PM CORPORATE STRATEGY ASSOCIATE): Advised referral to specialist, will help her arrange Cervical radiculopathy 06/03/2021 Assessment & Plan (06/03/2021 7:00 PM CORPORATE STRATEGY ASSOCIATE): Advised referral, will help her arrange Need [...] provided. Assessment & Plan (06/09/2023 9:18 AM CORPORATE STRATEGY ASSOCIATE): Discussed the patient's BMI. The BMI is [...] provided. Assessment & Plan (08/01/2021 9:57 AM CORPORATE STRATEGY ASSOCIATE): Obesity is unchanged. Discussed the patient's BMI. The BMI is above average. BMI management plan is completed. BMI Follow-up includes: nutrition counseling, exercise counseling and education provided. Assessment & Plan (06/20/2021 11:43 AM CORPORATE STRATEGY ASSOCIATE): Obesity is unchanged. Discussed the patient's BMI. [...] 5:31 PM CDT): We reviewed notes from rfp writer. She is going to call her current oxygen company and order a current supply as she is not certain she can walk down the hallway in the hospital for her 6min walk. She will communicate with the rfp writer regarding these concerns. Assessment & Plan (01/01/2022 6:43 PM CDT): Continue with oxygen, she reports that she has refills at home. Assessment & Plan (12/03/2021 8:20 PM CDT): Continue care per pulmonology, refill meds as needed Assessment & Plan (10/09/2021 12:08 PM CDT): Continue with care per pulmonology Continue with bpap Assessment & Plan (08/01/2021 9:57 AM CORPORATE STRATEGY ASSOCIATE): Continue with care per Dr. Bunch Assessment & Plan (06/03/2021 7:00 PM CORPORATE STRATEGY ASSOCIATE): Continue with care per pulm Assessment & Plan (05/01/2021 11:39 AM CDT): Continue with care per rfp writer Has pending sleep eval that she will keep rf meds as needed Assessment & Plan (09/25/2020 3:07 PM CDT): Retrieve records from rfp writer, continue care same at this time. Essential hypertension 09/25/2020 Assessment & Plan (06/03/2021 6:58 PM CORPORATE STRATEGY ASSOCIATE): Add daily hctz Discontinue inderal Advised monitoring [...] 09/27/2018 Assessment & Plan (06/20/2021 11:44 AM CORPORATE STRATEGY ASSOCIATE): Will refer to closer orthopedist for her [...] of 50.0 to 59.9 in adult 11/05/2022 Assessment & Plan (12/08/2023 8:19 AM CDT): Discussed the patient's BMI. The BMI is above average. BMI management plan is completed. BMI Follow-up includes: nutrition counseling, exercise counseling and education provided. Assessment & Plan (08/11/2023 8:47 AM CORPORATE STRATEGY ASSOCIATE): Discussed the patient's BMI. The BMI is [...] and education provided. Encounter for well woman exren m with routine gynecological exam 08/01/2021 09/08/2021 Assessment & Plan (08/01/2021 9:58 AM CORPORATE STRATEGY ASSOCIATE): Due for screening and wants to see solvent mixer (her previous MD has left the area). Will refer to Dr. Barreto for further assistance. Mare, right 06/20/2021 01/19/2022 Assessment & Plan (06/20/2021 11:43 AM CORPORATE STRATEGY ASSOCIATE): Will start on doxycycline Morbid obesity 06/20/2021 01/19/2022 Assessment & Plan (08/01/2021 9:57 AM CORPORATE STRATEGY ASSOCIATE): Obesity is unchanged. Discussed the patient's BMI. The BMI is above average. BMI management plan is completed. BMI Follow-up includes: nutrition counseling, exercise counseling and education provided. Assessment & Plan (06/20/2021 11:43 AM CORPORATE STRATEGY ASSOCIATE): Obesity is unchanged. Discussed the patient's BMI. [...] worsening. Assessment & Plan (06/20/2021 11:44 AM CORPORATE STRATEGY ASSOCIATE): Advised increased fluids, rest F/u in 1w if not improving, sooner if worsening Assessment & Plan (01/13/2021 9:22 AM CDT): She will continue with her nose spray per scaffold builder She will hold the mdp and not [...] be of assistance. BMI 60.0-69.9, adult 09/27/2018 022 Assessment & Plan (10/09/2021 12:08 PM CDT): Obesity is unchanged. Discussed the patient's BMI. The BMI is above average. BMI management plan is completed. BMI Follow-up includes: nutrition counseling, exercise counseling and education provided. Assessment & Plan (06/03/2021 7:00 PM CORPORATE STRATEGY ASSOCIATE): Obesity is unchanged. Discussed the patient's BMI. The BMI is above average. BMI management plan is completed. BMI Follow-up includes: nutrition counseling, exercise counseling and education provided. Assessment & Plan (01/13/2021 9:22 AM CDT): She was advised weight loss. She was offered referral to [facility] bariatrics and declines at this time. Assessment [...] on file Legal Sex Female 1:37 AM CORPORATE STRATEGY ASSOCIATE Gender Identity Not on file Sexual Orientation [...] CDT Respiratory Rate 16 06/09/2023 9:13 AM CORPORATE STRATEGY ASSOCIATE Oxygen Saturation 99% 11/01/2024 7:03 AM CDT Inhaled Oxygen Concentration - - Weight 106.6 kg (235 lb) 11/01/2024 7:03 AM CDT Height 160 cm (5' 3 ) 11/01/2024 7:03 AM CDT Body Mass Index 41.63 11/01/2024 7:03 AM CDT Plan of Treatment Not on [...] RADIOLOGY/IMAGING (10/31/2024) Anatomical Region Laterality Modality Other Marilyn Augustin NP Final Result * Hepatitis panel, acute (01/20/2022 9:29 AM CDT) Hep A IgM Nonreactive Nonreactive [facility] Comment: Interpretive Data: If Hep A IgM Ab is reported as Equivocal, a new sample should be drawn in two weeks for testing. Current interpretive data was last revised on 19. Hep B core IgM Nonreactive Nonreactive [facility] Comment: Interpretive Data If HepB Core IgM Ab is reported as Equivocal, a new sample should be drawn in two weeks for testing. Current interpretive data was last revised on 19. Hep C Ab Nonreactive Nonreactive [facility] Comment: Interpretive Data Nonreactive: Antibodies to HCV [...] last revised on 2019. HepBsAg Nonreactive Nonreactive [facility] Blood 01/20/2022 9:29 AM CDT 01/20/2022 7:16 PM CDT us Christy Newman NP LAB MICROBIOLOGY - GENERAL ORDER HERVE Final Result [facility] [address] [facility] [place] [address] * HM MAMMOGRAPHY (10/10/2021) us Historical Provider HEALTH MAINTENANCE Final Result from Last 3 Months or Most Recently Relevant to Health Maintenance Insurance [facility]IC[facility] MEDICARE Address: [address] [address] MEDICARE ADV[facility]AGE [facility] MEDICARE Address: [address] [address] [place] [address] Care Teams Tiger Machine Operator Relationship Specialty Start Date End Date Marilyn Augustin NP [address] [place] [address] PCP - General Internal Medicine 11/05/22
--- OUTSIDE RECORDS SUMMARY | 2024-11-16 08:24 | XMS_ITS | Clinical Summary ---
Author Organization [facility] Address [address] [facility] [place] [address] Care Team Providers Care Customer Care Voice Consultant Name Role Phone Celia Carson PA-C Primary Care Provider + Source Comments [facility],non-owned Affiliates and Associated Physician Practices is amultiple site organization consisting of ambulatory clinics and hospital sitesin [place], [place], [place] and [place]. This disclosure is being madepursuant to the Care Everywhere program and may not contain all information available regarding this patient. Last updated 18.[facility] Allergies Active Allergy Reactions Criticality Noted Date [...] unspecified whether complicated, unspecified whether persistent (HCC) [place] 2 (two) sprays into each nostril once [...] Comments Blood Pressure 140/84 07/26/2020 10:47 AM UNIVERSITY PROFESSOR Pulse 106 05/28/2020 11:11 AM UNIVERSITY PROFESSOR Temperature 36.1 C (97 F) 07/26/2020 10:47 AM UNIVERSITY PROFESSOR Respiratory Rate 20 04/19/2020 11:35 AM CDT Oxygen Saturation 99% 07/26/2020 10:47 AM UNIVERSITY PROFESSOR Inhaled Oxygen Concentration - - Weight 145.2 kg (320 lb) 07/26/2020 10:47 AM UNIVERSITY PROFESSOR Height 160 cm (5' 3 ) 07/26/2020 10:47 AM UNIVERSITY PROFESSOR Body Mass Index 56.69 07/26/2020 10:47 AM UNIVERSITY PROFESSOR Plan of Treatment Health Maintenance Due Date [...] of 2) 01/14/2022 COVID-19 VACCINE (3 - 4-25 season) 2024 11/26/2020, 11/07/2020 LIPID TESTING 05/30/2024 [...] Comments LIPID PROFILE Routine 05/30/2019 2:35 PM UNIVERSITY PROFESSOR Class 3 severe obesity with serious comorbidity and body mass index (BMI) of 50.0 to 59.9 in adult, unspecified obesity type MAMMO BILAT SCREENING Routine 05/02/2019 2:42 PM CDT Healthcare maintenance from Last 3 Months or Most Recently Relevant to Health Maintenance Results * LIPID PROFILE (05/30/2019 2:35 PM UNIVERSITY PROFESSOR) Cholesterol Total 141 <200 mg/dL 05/30/2019 3:21 PM [facility] HDL 58 >40 mg/dL 05/30/2019 3:21 PM [facility] Comment: ATP III Classification of HDL Cholesterol: <40 mg/dL: Considered a major risk factor. >60 mg/dL: Considered a negative risk factor. LDL Calculated 72 <100 mg/dL 05/30/2019 3:21 PM [facility] Comment: ATP III Classification of LDL Cholesterol: <100 mg/dL: Optimal 100 - 129 mg/dL: Near Optimal/Above Optimal 130 - 159 mg/dL: Borderline High 160 - 189 mg/dL: High >190 mg/dL: Very High Triglycerides 53 <150 mg/dL 05/30/2019 3:21 PM [facility] Comment: ATP III Classification of Triglycerides: <150 mg/dL: Normal 150 - 199 mg/dL: Borderline High 200 - 400 mg/dL: High >500 mg/dL: Very High Blood BLOOD SPECIMEN / Unknown Lab Venipuncture / Unknown 05/30/2019 2:35 PM UNIVERSITY PROFESSOR 05/30/2019 2:56 PM UNIVERSITY PROFESSOR Doreen Mae APRNINVENTORY CHECKER LAB - CHEMISTRY ORDERABL ES Final Result [address] [phone] * MAMMO BILAT SCREENING (05/02/2019 2:42 PM CDT) Anatomical Region Laterality Modality Breast Bilateral Mammography 05/24/2019 10:3 5 AM UNIVERSITY PROFESSOR Impressions 05/24/2019 10:39 AM UNIVERSITY PROFESSOR IMPRESSION: No mammographic evidence of malignancy. ASSESSMENT: BI-RADS Category 1: Negative mammogram. RECOMMENDATION: Bilateral screening mammogram in one year. This report was electronically signed by URSULA DOZIER M.D. on 05/24/2019 10:39 AM . Narrative 05/24/2019 10:39 AM UNIVERSITY PROFESSOR SCREENING MAMMOGRAM DATE: 05/02/2019 COMPARISON: Prior mammograms just received from [place] dated 01/25/2017 and 12/10/2010. 2017 report not [...] compared with the prior study. Doreen Mae APRN-BANDAR MAMMO ORDERABLES Final R esult from Last 3 Months or Most Recently Relevant to Health Maintenance Insurance [facility] Care Teams Customer Care Voice Consultant Relationship Specialty Start Date End Date Celia Carson PA-C PCP - General 12/04/20
--- OUTSIDE RECORDS SUMMARY | 2024-11-16 08:24 | XMS_ITS | Data Portability ---
Author Organization [place] - [facility] [employer], Main Office Address [address] [place] [address] Assessment No assessment recorded. Plan of Treatment Reminders Order Date Submit Date Provider Last Modified By Organization Details Last Modified Time Details Appointments None recorded. Lab None recorded. Referral None recorded. Procedures colonoscopy screening (PROC) 2022 023 [facility] (Pre-Screen), [address] [place], [address], 11:05:02 Surgeries None recorded. Imaging None recorded. Medication Orders None recorded. Patient TargetsNo targets recorded. Patient Instructions Encounter Date Encounter Id Patient Instructions Last Modified By Organization Details Last Modified Time 02/17/2023 [id number] miralax prep [email or web address] Not available 02/17/2023 15:27:25 PT NEEDS A SCREENING COLON . R/O POLYP . RECOMMEND A COLONOSOPY . Risks benefits and complications were explained to the pt. ( BLEEDING PERFORATION , INFECTION , ). PT VERBALIZES UNDERSTANDING AND IS WILLING TO PROCEDE . [email or web address] Not available 02/17/2023 15:01:15 07/14/2023 [id number] PT WITH BLOOD IN THE STOOL . SX ARE C/W WITH A DIEULAFOY LESION. CALL WITH SX FOR COLONOSCOPY. [email or web address] Not available 07/14/2023 14:37:13 Reason for Referral None Reported. Results Created Date Observation Date Name Description Value Unit Range Abnormal Flag Note LastModifiedBy Organization Detail LastModifiedTime 07/28/19 23 XR, hand, 3 or more view No observ ation record ed. [id number] [facility] [place] [address], [place], [address], 09/02/2022 17:44:29 05/19/20 23 05/19/2023 colon oscop y scree kem (PROC ) No observ ation record ed. [email or web address] [facility] (Pre-Screen) [address] [place], [address], 05/19/2023 11:05:02 Result Notes None recorded. Problems Name Problem SNOMED Code Status Onset Date Resolution Date Notes Provider Name and Address Organization Details Recorded Time Acute sinusitis 61091863 Active 2017 Not Available [facility] 17:43[facility]30 Asthma 774767130 Active 2017 Not Available [facility] 17:43:30 Gastroesop hageal reflux disease 881619612 Active 2017 Not Available [facility] 17:43:30 Essential hypertensi on 48374631 Active 2022 GUILHERME Rea [address], [address] , [employer] 3 19:25:12 Allergic rhinitis 75248539 Active 2022 GUILHERME Rea [address], [address] , [employer] 3 19:25:17 Gastroesop hageal reflux disease without esophagiti s 080532512 Active 2022 GUILHERME Rea [address] [address], [place], [address] , [employer] 3 19:25:23 Trigger finger of left hand 6302502825958 9107 Active 2022 GUILHERME Rea [address] [address], [place], [address] , [employer] 3 19:25:32 Mixed anxiety and depressive disorder 678123429 Active 2022 Jadyn Hopper, BICYCLE MESSENGER-C [address], [place], [address] , [place] [facility] 3 19:25:38 Severe persistent asthma 554544401 Active 2022 TANA Rea-C [address], [address], [place], [address] , [place] [facility] 3 19:25:50 Sleep apnea 25943716 Active 2022 TANA Rea-C [address], [address], [place], [address] , [place] [facility] 3 19:25:54 Acne 59695087 Active 2022 TANA Rea-C [address], [address], [place], [address] , [place] [facility] 3 19:26:08 Hypoxia 224126695 Active 2022 GUILHERME Rea [address], [place], [address] , [place] [facility] 3 19:28:23 Bilateral arthritis of knees 6368346185313 108 Active 2022 TANA Rea-C [address], [place], [address] , [place] [facility] 3 19:28:34 Hematochez ia 848787626 Active 2023 Pamela Christianson MD [address], [place], [address] , [place] [facility] 14:00:02 Problem Notes None recorded. Procedures Surgical History Date Name Laterality Status Provider Name and Address Organization Details Recorded Time Sinus Surgery completed Not Available [facility] 09/02/2022 17:42:59 section completed Not Available [facility] 09/02/2022 17:42:59 Tubal Ligation completed Not Available [facility] 09/02/2022 17:42:59 Carpal tunnel completed Not Available [facility] 09/02/2022 17:42:59 Imaging Results Imaging Date Name Status LastModified by Organiz ation Details LastModified Time 07/28/2022 XR, hand, 3 or more view completed [id number] [facility] [place] [address], [place], [address], 09/02/2022 17:44:29 05/19/2023 colonoscopy screening (PROC) completed [email or web address] [facility] (Pre-Screen) [address] [facility], [place], [address], 05/19/2023 11:05:02 Procedure Notes None recorded. Medical Equipment None Reported. Allergies Allergen ID Allergen Name Allergen Category Reaction Reaction Severity Criticality Documentation Date Start Date Code Code System Note Provider Name and Address Organization Details Recorded Time 73556 nickel environme nt itching swelling Not available Not available Not available 09/02/2022 36130 29 RxNorm Not Available [facility] 17:44:27 Medications Name Sig Start Date Stop [...] injection administe red by the provider active [facility]: 0003- 0494- 20 Not Available Not Available [...] Take 1 mg by injection route. active [facility] 16694 -064- 01 Not Available Not Available Not [...] % 90 % 101 /min 97.7 [degF] 437273. 41 g 132 mm[Hg] 82 mm[Hg] Not Available [facility] 3 17:43:19 Date Recorded Body mass index (BMI) Body height Oxygen saturation Oxygen saturation in Arterial blood by Pulse oximetry Heart rate Body temperature Body weight Systolic blood pressure Diastolic blood pressure Provider Name and Address Organization Details Last Updated DateTime 3 63.8 kg/m2 157.48 cm 94 % 94 % 106 /min 97.7 [degF] 883146. 74 g 128 mm[Hg] 80 mm[Hg] Not Available [facility] 3 17:43:19 Date Recorded Body mass index (BMI) Body height Body weight Provider Name and Address Organization Details Last Updated DateTime 07/28/2022 64 kg/m2 157.48 cm 027662.33 g Not Available [facility] 09/02/2022 17:43:20 Date Recorded Body height Body mass index (BMI) Body weight Heart rate Oxygen saturation Oxygen saturation in Arterial blood by Pulse oximetry Systolic blood pressure Diastolic blood pressure Provider Name and Address Organization Details Last Updated DateTime 3 157.48 cm 64 kg/m2 306112. 33 g 104 /min 98 % 98 % 124 mm[Hg] 78 mm[Hg] MERCEDES Ley [employer] [facility] 3 14:45:44 Date Recorded Body height Body weight Heart rate Oxygen saturation Oxygen saturation in Arterial blood by Pulse oximetry Systolic blood pressure Diastolic blood pressure Provider Name and Address Organization Details Last Updated DateTime 4 157.48 cm 788974. 33 g 100 /min 99 % 99 % 122 mm[Hg] 76 mm[Hg] Isaias Patel [facility] [employer] 4 13:47:09 Social History Question Answer Notes LastModified by Organizat ion Details LastModified Time Tobacco Smoking Status Never Smoker Not Available [facility] 09/02/2022 17:42:52 What Is Your Level Of Caffeine Consumption? Moderate MIGRATION.92082 04079 Information not available 09/02/2022 In The 14 Days Before Symptom Onset, Have You Had Close Contact With A Laboratory-confir med COVID-19 While That Case Was Ill? No MIGRATION.32894 03533 Information not available 09/02/2022 In The 14 Days Before Symptom Onset, Have You Had Close Contact With A Person Who Is Under Investigation For COVID-19 While That Person Was Ill? No MIGRATION.24102 79107 Information not available 09/02/2022 What Type Of Diet Are You Following? REGULAR MIGRATION.33506 88825 Information not available 09/02/2022 What Is The Highest Grade Or Level Of School You Have Completed Or The Highest Degree You Have Received? PM00521-4 MIGRATION.16995 54547 Information not available 09/02/2022 Have There Been Any Changes To Your Family Or Social Situation? No MIGRATION.29028 06623 Information not available 09/02/2022 What Is The Fluoride Status Of Your Home? Unknown MIGRATION.24579 10211 Information not available 09/02/2022 Are There Any Guns Present In Your Home? No MIGRATION.80798 46572 Information not available 09/02/2022 Do You Use Insect Repellent Routinely? No MIGRATION.81796 01069 Information not available 09/02/2022 Where Do You Live? [place] MIGRATION.74000 63712 Information not available 09/02/2022 What Was The Date Of Your Most Recent Tobacco Screening? 01/07/2022 MIGRATION.01737 84415 Information not available 09/02/2022 Do You Have Any Pets? Yes MIGRATION.69787 04904 Information not available 09/02/2022 Do You Use Your Seat Belt Or Car Seat Routinely? Yes MIGRATION.82299 95129 Information not available 09/02/2022 Do You Have Smoke And Carbon Monoxide Detectors In Your Home? Yes MIGRATION.03648 66231 Information not available 09/02/2022 Are You Passively Exposed To Smoke? No MIGRATION.82734 39103 Information not available 09/02/2022 Are There Any Smokers In Your House? No MIGRATION.29470 33313 Information not available 09/02/2022 Do You Use Sunscreen Routinely? Yes MIGRATION.31146 70028 Information not available 09/02/2022 Have You Recently Traveled Abroad? No MIGRATION.41703 44448 Information not available 09/02/2022 Do You Have Any Dietary Restrictions? No MIGRATION.59152 25736 Information not available 09/02/2022 Sex: Female Functional Status Question Answer Note LastModified by Organizat ion Details LastModified Time Do you use any illicit or recreational drugs? No MIGRATION.80027254 26 Information not available 09/02/2022 Do you or have you ever used any other forms of tobacco or nicotine? No MIGRATION.92516234 26 Information not available 09/02/2022 What is your level of alcohol consumption? None MIGRATION.42556256 26 Information not available 09/02/2022 What is your exercise level? None MIGRATION.31015695 26 Information not available 09/02/2022 Mental Status Question Answer Note LastModified by Organizat ion Details LastModified Time Do you feel stressed (tense, restless, nervous, or anxious, or unable to sleep at night)? [id number] MIGRATION.205024699 6 Information not available 09/02/2022 Family History Relationship Description Onset Age of this Age Resolved Age Notes LastModified by Organization Details LastModified Time Father Family history of malignant neoplasm MIGRATION.540 [id number] Not available 09/02/2022 17:43:00 Father Hypertensive disorder MIGRATION.290 [id number] Not available 09/02/2022 17:43:00 Medical History Condition Response ARTHRITIS Y HYPERTENSION Y Gynecological HistoryNo gynecological history recorded. Obstetrics History GPAL:G 0 P 0 0 0 0 Immunizations Vaccine Type Date Status Note Provider Nam e and Address Organization Details Recorded Time COVID-19, mRNA, LNP-S, PF, 30 mcg/0.3 mL dose 11/28/2020 completed Not Available [facility] 3 17:44:23 COVID-19, mRNA, LNP-S, PF, 30 mcg/0.3 mL dose 11/07/2020 completed Not Available [facility] 3 17:44:24 Past Encounters Encounter ID Performer Location Encounter Start Date Encounter Closed Date Diagnosis/Indication Diagnosis SNOMED-CT Code Diagnosis ICD10 Code Diagnosis Note [id number] _ATHN_MIGR ATION_1 _ATHENA_M IGRATION_ DEFAULT_1 _1 , 01/07/2022 00:00:00 01/07/2022 15:25:32 [id number] Whitney mcclure MD [facility] Internal Med [address] [facility], [address] [place] [address] 07/07/2022 00:00:00 07/07/2022 13:28:19 [id number] Ajith Pérez MD [facility] [place] [address] [place] [address] 07/28/2022 00:00:00 07/28/2022 10:04:08 [id number] Madeline Weinstein NP [facility] [address] [facility] [place] [address] 07/28/2022 00:00:00 07/28/2022 13:12:44 [id number] Pamela Christianson MD [facility] General Surgery [address] [place] [address] 02/17/2023 14:42:49 02/17/2023 15:11:56 Screening for malignant neoplasm of colon 967684127 Z12.11 [id number] Pamela Christianson MD [facility] General Surgery [address] [facility] [address] [place] [address] 07/14/2023 13:02:20 07/14/2023 14:33:33 Hematochezia [id number] K92.1 Health Concerns Section Related Observation LastModified by Organization Detai ls LastModified Time None Recorded Concern Status LastModified by Organization Details LastModified Time None Recorded Advance Directives Directive None Recorded Payers Encounter Date Sequence Insurance Name Policy Number Policy Fang Covered Member ID Fang Member ID Guarantor Name 02/17/2023 2 [place] Angie Leos [id number] Angie Leos 02/17/2023 1 [facility] (MEDICARE REPLACEMENT/A DVANTAGE - PPO) [id number] Angie Leos [id number] Angie Leos 07/14/2023 2 [place] Angie Leos [id number] Angie Leos 07/14/2023 1 [facility] (MEDICARE REPLACEMENT/A DVANTAGE - PPO) [id number] Angie Leos [id number] Angie Leos Notes Date Note Type Note Provider Name and Address Organization Details Recorded Time 02/17/2023 text/html PT WAS SEEN IN T HE OFFICE TODAY FOR COLON SCREENING . PT DENIES ABD PAIN /N/V/D/BLEEDING /WT LOSS. Pamela Christianson MD [address] [facility], [address], [place], [address], [facility] 02/17/2023 15:28:03 07/14/2023 text/html ANGIE WAS SEEN IN THE OFFICE TODAY Y. PT C/O BLOOD IN THE STOOL . PT DENIES CONSTIPATION /DIARRHEA /PUSHING /STRAINING. PT HAS BEEN HAIVING THESE SX FOR A WHILE . RECENT COLON JOSE NOT SHOW ANY PATHOLOGY. PT LAST HAS THESE SX X 2 DAYS AGO . Pamela Christianson MD [address] [facility], [facility] [address], [place], [address], [place] [employer] [facility] 07/14/2023 14:37:41 OBGyn Episode No OBEpisode recorded.
--- OUTSIDE RECORDS SUMMARY | 2024-11-16 08:24 | XMS_ITS | Patient Health Record ---
Author Organization [facility] [employer] ([address]) Address [address] [facility] [address] [place] [address] Care Team Providers Care Lining Marker Name Role Phone Yannick Glasgow Unavailable [phone] Michael Gleason Unavailable Unavailable Higinio Mcpherson Unavailable [phone] Amy Chopra Unavailable [phone] Ifeoma Ruiz Unavailable [phone] [employer], Provider Unavailable Unavailab le Allergies Allergen (clinical drug ingredient) Drug/Non Drug Allergy documented on EMR Reaction Allergy Type Onset Date Status nickel Nickel other reaction Allergy Activ e Reason For Referral No Information Medications Medication SIG (Take, Route, Frequency, Duration) Notes Start Date End Date Status TEZSPIRE PRE-FILLED PEN ekko 210 mg/1.91 mL as directed subcutaneously every 4 weeks Not-Taking D3-50 1250 mcg 1 cap(s) orally once a week for 60 days Not-Taking busPIRone HCl 10 MG 1 tab(s) orally 2 times a day Not-Taking PNEUMOVAX 23 - 0.5 mL intramuscularly once for 1 dose(s) Not-Taking Trelegy Ellipta 200-62.5-25 MCG/ACT 1 puff Inhalation Once a day for 30 days Active Spiriva Respimat 1.25 MCG/ACT 2 puff(s) inhaled once a day Not-Taking Montelukast Sodium 10 MG 1 tab(s) orally once a day Not-Taking Amoxicillin-Pot Clavulanate 875-125 [...] ONCE NIGHTLY Oral for 90 Days Active SYMBICORT 160 mcg-4.5 mcg/inh 2 puff(s) inhaled [...] a day for 30 days 4 Not-Taking ACTHIB (HIB) - 0.5 mL intramuscularly once for 1 dose(s) Not-Taking FERROUS SULFATE Not- Taking MUPIROCIN TOPICAL 2% 1 sara applied topically 3 times a day Not-Taking MONTELUKAST 10 mg 1 tab(s) orally once a day Active Tezspire 210 MG/1.91ML as directed Subcutaneous once for 28 days Active SPIRIVA RESPIMAT 1.25 mcg/inh 2 puff(s) inhaled once a day Active ALBUTEROL 90 mcg/inh 2 puff(s) inhaled every 6 hours Active NASAL WASHES N/A as directed intranasally as needed for 30 days Active BACLOFEN 10 mg 1 tab(s) orally 3 times a day Not-Taking ADVAIR HFA 230 mcg-21 mcg 2 puff(s) inhaled 2 times a day Active TORSEMIDE 20 mg 1 tab(s) orally once a day Not-Taking FLUTICASONE NASAL 50 mcg/inh 2 spray(s) in each nostril twice a day for 30 days Active AZELASTINE NASAL 137 mcg/inh 2 spray(s) intranasally 2 times a day Not-Taking AZELASTINE NASAL 137 mcg/inh 2 spray(s) intranasally 2 times a day for 30 days Active HYDROCHLOROTHIAZIDE 12.5 mg 1 cap(s) orally once a day Not-Taking BUSPIRONE 10 mg 1 tab(s) orally 2 times a day Not-Taking CETIRIZINE 10 mg 1 tab(s) orally once a day for 30 days Active FLUTICASONE NASAL 50 mcg/inh 1 spray(s) in each nostril once a day Not-Taking OMEPRAZOLE 40 mg 1 cap(s) orally once a day Not-Taking BUDESONIDE-FORMOTEROL 160 mcg-4.5 mcg/inh 2 puff(s) inhaled 2 times a day Not-Taking Pneumovax 23 - 0.5 ML INTRAMUSCULARLY ONCE for 1 DOSE(S) *Please review and pick correct strength-formul ation from [facility] options. If intended option is not shown, discontinue and re-order from Quick Search* 4 Not-Taking D3-50 1250 MCG 1 CAP(S) ORALLY ONCE A WEEK for 60 DAYS *Please review and pick correct strength-formul ation from [facility] options. If intended option is not shown, discontinue and re-order from [employer]* 4 Not-Taking Fluticasone Propionate 50 MCG/ACT 1 spray(s) in each nostril once a day Not-Taking Azelastine HCl 137 MCG/SPRAY 2 spray(s) intranasally 2 times a day Not-Taking Baclofen 10 MG 1 tab(s) orally 3 times a day Active Mupirocin 2 % 1 sara applied topically 3 times a day Not-Taking Budesonide-Formoterol Fumarate 160-4.5 MCG/ACT 2 puff(s) inhaled 2 times a day Not-Taking Omeprazole 40 MG 1 cap(s) orally once a day Active Azelastine HCl 137 MCG/SPRAY 2 spray(s) intranasally 2 times a day for 30 days Not-Taking hydroCHLOROthiazide 12.5 MG 1 cap(s) orally once a day Active Symbicort 160-4.5 MCG/ACT 2 puff(s) inhaled 2 times a day Not-Taking EpiPen 2-Leela 0.3 MG/0.3ML as directed intramuscularly once for 30 days 4 Active Ferrous Sulfate *Please review and pick correct strength-formul ation from [facility] options. If intended option is not shown, discontinue and re-order from Quick Search* Active Fluticasone Propionate 50 MCG/ACT 2 spray(s) [...] Once a day for 30 day(s) Active Social History Tobacco Use: Social History Observation Description Date Details (start date - stop date) Never Smoker NA - NA Smoking Smart Form: Question Answer Notes Are you a: never smoker Problems Problem Type SNOMED Code ICD Code Onset Dates Problem Status W/U Status Risk Notes Problem Vitamin D deficiency (35609484) Vitamin D deficiency, unspecified (E55.9) Active confirmed Problem Chronic allergic conjunctivitis (94253646) Other chronic allergic conjunctivitis (H10.45) Active confirmed Problem Allergic rhinitis caused by pollen (disorder) (18479039) Allergic rhinitis due to pollen (J30.1) Active confirmed Problem Allergic rhinitis (86916647) Other allergic rhinitis (J30.89) Active confirmed Problem Uncomplicated severe persistent asthma (195887824) Severe persistent asthma, uncomplicated (J45.50) Active confirmed Problem Allergic rhinitis caused by animal hair and dander (482868786579048) Allergic rhinitis due to animal (cat) (dog) hair and dander (J30.81) Active confirmed Problem Chronic sinusitis (82330016) Chronic sinusitis, unspecified (J32.9) Active confirmed Problem Essential hypertension (02188087) Essential (primary) hypertension (I10) Active confirmed Vital Signs Oximetry 99 % 11/09/2024 Blood pressure diastolic 81 mm Hg 11/09/2024 Height 63 in 11/09/2024 Blood pressure systolic 137 mm Hg 11/09/2024 Weight 331 lbs 08/29/2024 BMI 58.63 kg/m2 08/29/2024 Encounters Encounter Location Date Provider Diagnosis [facility] [address] [place] [address] 12/18/2023 Provider [facility] Allergic rhinitis due to pollen J30.1 ; Severe persistent asthma, uncomplicated J45.50 ; Chronic sinusitis, unspecified J32.9 and Vitamin D deficiency, unspecified E55.9 [facility] [address] [place] [address] 05/08/2024 Yannick Arizmendifani Allergic rhinitis du e to pollen J30.1 ; Allergic rhinitis due to animal (cat) (dog) hair and dander J30.81 ; Other allergic rhinitis J30.89 ; Other chronic allergic conjunctivitis H10.45 ; Severe persistent asthma, uncomplicated J45.50 ; Acute serous otitis media, right ear H65.01 ; Chronic sinusitis, unspecified J32.9 ; Vitamin D deficiency, unspecified E55.9 and Essential (primary) hypertension I10 [facility] [address] [place] [address] 08/29/2024 Yannick Glasgow Allergic rhinitis du e to pollen J30.1 ; Severe persistent asthma, uncomplicated J45.50 ; Allergic rhinitis due to animal (cat) (dog) hair and dander J30.81 ; Other allergic rhinitis J30.89 ; Other chronic allergic conjunctivitis H10.45 ; Vitamin D deficiency, unspecified E55.9 ; Essential (primary) hypertension I10 and Chronic sinusitis, unspecified J32.9 [facility] [address] [place] [address] 11/09/2024 Higinio yK Severe persistent asthma, uncomplicated J45.[address] [address] 11/18/2023 Yannick Glasgow [facility] [address] [place] [address] 02/10/2024 Yannick Glasgow [address] [address] 05/08/2024 Yannick Glasgow [address] [address] 06/19/2024 Yannick Glasgow [facility] [address] [place] [address] 08/09/2024 Yannick Glasgow [facility] [address] [place] [address] 11/08/2024 Ifeoma Ruiz Severe persistent asthma, uncomplicated [...] 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 At the time she was experiencing SOB [...] follow-up with PCP 10/10/2024 Other 08/29/2024 Other 11/09/2024 Other Plan Of Treatment Pending Test Test Name Order Date STREPTOCOCCUS PNEUMONIAE IGG AB (23 SERO TYPES) 07/28/2023 TETANUS ANTITOXOID ANTIBODY (EIA) 2023 DIPHTHERIA ANTITOXOID ANTIBODY HAEMOPHILUS INFLUENZAE B ANTIBODY, IGG 0 07/28/2023 Next Appt Details Provider Name:Higinio Mcpherson , 12/07/2024 07:30:00 AM, [address], [address], Provider Name:Mark Ellsworth, 01/04/2025 02:45:00 PM, [address], [place], [address], Insurance Providers Payer Name Payer Address Payer Phone Subscriber Number Group Number Insured Name Patient Relationship to Insured Coverage Start Date Coverage End Date [employer] Medicare [address] [address] [place] [address] [id number] Angie Leos Self - patient is the insured Medical (General) History Medical History History ICD Code Asthma Hypertension Sinusitis Osteoarthritis Surgical History Surgery Date(Month/Year) sinus surgery carpal tunnel release Ablation Hospitalization History Reason Date(Month/Year) asthma exacerbation
== END 2024-11-16 08:19 | disposition home or self-care (01) ==
PROVIDERS: PCP Nurse Practitioner Family; Visit Provider Nurse Practitioner
DX: R14.0 Abdominal distension (gaseous) (principal); R10.9 Unspecified abdominal pain; K59.09 Other constipation
CPT/HCPCS: 74018

== ENCOUNTER 2025-02-24 08:55 | Emergency (ER) | payer MEDICARE, SELFPAY ==
--- OUTSIDE RECORDS SUMMARY | 2010-05-13 10:15 | XMS_ITS | Continuity of Care Document ---
Author Organization [facility] Address [address] [place] [address] [address] [place] [address] Phone Care Team Providers Care Clinician Oncology Name Role Phone Ayala OD, Dereje Unavailable Unavailable Procedures Procedure Date Eye Exam, New Patient Refraction Advance Directives Directive Yes / No Effective Date File Name No Information Encounters Encounter Description Practice Location Reason(s) For Visit Diagnoses Date Provider Providers Copied on Encounter [facility], [address] [place] [address] [address], [place], [place], [id number], [place] tel:[phone] [facility] No Information 9-201 0 Ayala OD Dereje. [address] [address] [place] , [address], [place], [address], [place]. tel:[phone] Family History Family Member Type Diagnosis Age At Onset No Information Payers Payer name Insurance type Covered republican ID Authoriza tion(s) Medicaid [facility] [id number] Social History Type Description Quantity Date Captured [...]
--- OUTSIDE RECORDS SUMMARY | 2010-05-13 10:15 | XMS_ITS | Continuity of Care Document ---
Author Organization [facility] Address [address] [place] [address] utive [facility] [address] [place] [address] Phone Care Team Providers Care Sommelier Name Role Phone Ayala OD, Dereje Unavailable Unavailable Procedures Procedure Date Eye Exam, New Patient Refraction Advance Directives Directive Yes / No Effective Date File Name No Information Encounters Encounter Description Practice Location Reason(s) For Visit Diagnoses Date Provider Providers Copied on Encounter [facility], [address] [place] [address] [address], [place], [place], [id number], [place] tel:[phone] SEC [facility][note 3] No Information 9-201 0 Ayala OD Dereje. [address] , [address], [place], [address], [place]. tel:[phone] Family History Family Member Type Diagnosis Age At Onset No Information Payers Payer name Insurance type Covered democrat ID Authoriza tion(s) Medicaid [facility] [id number] Social History Type Description Quantity Date Captured [...]
--- OUTSIDE RECORDS SUMMARY | 2025-01-04 12:30 | XMS_ITS ---
Author Organization [facility] [place] ([address]) Address [address] [place] [address] Care Team Providers Care Plastic Mixer Name Role Phone Yannick Glasgow Unavailable [phone] Michael Gleason Unavailable Unavailable Mark Ellsworth Unavailable [phone] REASON FOR VISIT TEZSPIRE SP Follow-up Social History Sex Assigned At : Social History Observation Description Sex Assigned At Female Encounters Encounter Location Date Provider Diagnosis [facility] [address] [place] [address] 01/04/2025 Mark Ellsworth Plan Of Treatment Next Appt Details Provider Name:Higinio Mcpherson , 03/08/2025 08:30:00 AM, [address] [facility], [address], [place], [address], Progress Notes * Eric LEOSiDOB:1970 (55 yo F)Acc No.[id number]:01/04/2025 TEZSPIRE Adiministration Vis it Patient: Angie CABRERA Provider: Nu Ellsworth :1970 A ge:54 Y S ex:Female Date:01/04/2025 Address:[address] [place], [place] [phone] Subjective: * Chief Complaints: * 1 . TEZSPIRE SP Follow-up. * Medical History: Objective: * Vitals: Assessment: Plan: * Treatment: * Billing Information: * Visit Code: * Procedure Codes: * Electronic signature of MD Hui ph D on 02/24/2025 at 08:58 AM CDT Sign off status: Pending * Provider: Nu Ellsworth Date: 01/04/2025 Generated for Max hernanedz/Erinn/Isidro on: 02/24/2025 08:58 AM CDT
--- OUTSIDE RECORDS SUMMARY | 2025-02-15 12:30 | XMS_ITS ---
Author Organization [facility] [place] ([address]) Address [address] [place] [address] Care Team Providers Care Mechanic Welder Truck Driver Name Role Phone Yannick Glasgow Unavailable [phone] Michael Gleason Unavailable Unavailable Higinio Mcpherson Unavailable [phone] REASON FOR VISIT TEZSPIRE SP Only Social History Sex Assigned At : Social History Observation Description Sex Assigned At Female Encounters Encounter Location Date Provider Diagnosis [facility] [address] [place] [address] 02/15/2025 Higinio Mcpherson Plan Of Treatment Next Appt Details Provider Name:Higinio Mcpherson , 03/08/2025 08:30:00 AM, [address] [employer] [facility], [address], [place], [address], Progress Notes * Eric LEOSiDOB:1970 (55 yo F)Acc No.[id number]:02/15/2025 TEZSPIRE Only Patient: Vaughn Angie TAYLOR Provider: Sheeba Mcpherson MD :1970 A ge:55 Y S ex:Female Date:02/15/2025 Address:[address] [place], [place] [address] Subjective: * Chief Complaints: * 1 . TEZSPIRE SP Only. * Medical History: Objective: * Vitals: Assessment: Plan: * Treatment: * Billing Information: * Visit Code: * Procedure Codes: * Electronic signature of Ling Mcpherson MD, [facility] on 02/24/2025 at 08:58 AM CDT Sign off status: Pending * Provider: Sheeba Mcpherson MD Date: 02/15/2025 [facility] for [facility]/Erinn/Isidro on: 02/24/2025 08:58 AM CDT
--- NOTE | ~2025-02-24 | XR_ITS ---
EXAMINATION: XR chest 2V 02/24/2025 10:17 INDICATION: Shortness of breath PROCEDURE: AP and lateral views of the chest COMPARISON: Comparison to multiple prior studies sequentially, with oldest reviewed study dated 03/14/2023. FINDINGS: The lungs are clear. The cardiomediastinal silhouette is within normal limits. There are no pleural effusions. There is no pneumothorax suspected. There are multiple healed bilateral rib fractures. IMPRESSION: 1: NO ACUTE CARDIOPULMONARY DISEASE. Reviewed, dictated and finalized at location O.
--- OUTSIDE RECORDS SUMMARY | 2025-02-24 08:58 | XMS_ITS | Encounter Summary ---
Author Organization [facility] Address [facility] [place] [address] Care Team Providers Care Health Care Marketing Specialist Name Role Phone Doreen Mae APRN-OPERATING SYSTEM PROGRAMMER Primary Care Provider + Celia Carson PA-C Primary Care Provider + Reason for Visit * Reason Onset Date Comments MEDICATION REFILL 01/23/2019 MEDICATION REFILL 02/20/2019 Encounter Details Date Type Department Care Team (Late st Contact Info) Description 01/23/2019 Refill [facility] General Internal Medicine [address] [facility] [address] [place] [address] Doreen Mae, EMPLOYMENT MANAGER-OPERATING SYSTEM PROGRAMMER [address] OF [facility] [place] [address] MEDICATION REFILL; MEDICATION REFILL Social History Tobacco [...] deficiency documented in this encounter Care Teams Health Care Marketing Specialist Relationship Specialty Start Date End Date Doreen Mae APRN-BANDAR [address] [place] [address] PCP - General Nurse Practitioner 09/27/18 12/03/20 Celia Carson PA-C [address] [place] [address] PCP - General 12/04/20 documented as of this encounter
--- OUTSIDE RECORDS SUMMARY | 2025-02-24 08:58 | XMS_ITS | Encounter Summary ---
Author Organization [facility] Address [address] [place] [address] Care Team Providers Care Sandwich Wrapper Name Role Phone Marilyn Augustin NP Primary Care Provider [phone] Encounter Details Date Type Department Care Team (Late st Contact Info) Description 11/16/2024 Orders Only [facility] [address] [place] [address] Scanning, Provider Social History Tobacco Use Types Packs/Day Years Used Date Smoking Tobacco: Never Smokeless Tobacco: Never AUDIT-C Answer Date Recorded Q1: How often [...] on file Legal Sex Female 1:37 AM FIELD 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 OPERATOR Gender Identity Not on file Sexual Orientation Not on file 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 on file Not on file Not on file documented as of this encounter Plan of Treatment Not on file documented as of this encounter Procedures Procedure Name Priority Date/Time Associated Diagnosis Comments SCAN - RADIOLOGY/IMAGING 11/16/2024 documented in this encounter Results * SCAN - RADIOLOGY/IMAGING (11/16/2024) Anatomical Region Laterality Modality Other us Provider Scanning Final Result documented in this encounter Visit Diagnoses Not on filedocumented in this encounter Care Teams Sandwich Wrapper Relationship Specialty Start Date End Date Marilyn Augustin NP [address] [facility] [address] [place] [address] PCP - General Internal Medicine 11/05/22 documented as of this encounter
--- OUTSIDE RECORDS SUMMARY | 2025-02-24 08:58 | XMS_ITS | Encounter Summary ---
Author Organization [facility] Address [facility] [place] [address] Care Team Providers Care Ophthalmic Aide Name Role Phone Celia Carson PA-C Primary Care Provider + Encounter Details Date Type Department Care Team (Late st Contact Info) Description 12/04/2020 Telephone [facility] Pul[facility], Critical Care and [facility] Medicine [address] [place] [address] Smita Lopez MD [address] OF PULMONARY[facility] [address] Social History Tobacco Use Types Packs/Day Years [...] MyCHart is down. Patient Call Back number: [phone] documented in this encounter Plan of Treatment Not on file documented as of this encounter Visit Diagnoses Not on filedocumented in this encounter Care Teams Ophthalmic Aide Relationship Specialty Start Date End Date Celia Carson PA-C PCP - General 12/04/20 documented as of this encounter
--- OUTSIDE RECORDS SUMMARY | 2025-02-24 08:58 | XMS_ITS | Encounter Summary ---
Author Organization [facility] Address [employer] [place] [address] Care Team Providers Care Documentation Spec Name Role Phone Doreen Mae APRN-WHEEL BLOCKER Primary Care Provider + Celia Carson PA-C Primary Care Provider + Reason for Visit * Reason Onset Date Comments MEDICATION REFILL 02/27/2019 MEDICATION REFILL 03/28/2019 Encounter Details Date Type Department Care Team (Late st Contact Info) Description 02/27/2019 Refill [facility] General Internal [facility] [address] [facility] [address] [place] [address] Doreen Mae, CALENDER TENDER-WHEEL BLOCKER [address] OF [facility] [place] [address] MEDICATION REFILL; MEDICATION REFILL Social History Tobacco [...] encounter Miscellaneous Notes * Telephone Encounter - JinaYumi post - 02/27/2019 8:02 AM CDT Refill request sent per protocol to provider PAMELLA 11-29-18 NOV 01-24-19 ?? documented in this encounter Plan of Treatment Not on file documented as of this encounter Visit Diagnoses Diagnosis Primary osteoarthritis of both knees Primary localized osteoarthrosis, lower leg documented in this encounter Care Teams Documentation Spec Relationship Specialty Start Date End Date Doreen Mae, CALENDER TENDER-WHEEL BLOCKER [address] [place] [address] PCP - General Nurse Practitioner 09/27/18 12/03/20 Celia Carson PA-C [address] [place] [address] PCP - General 12/04/20 documented as of this encounter
--- OUTSIDE RECORDS SUMMARY | 2025-02-24 08:58 | XMS_ITS | Encounter Summary ---
Author Organization [facility] Address [facility] [place] [address] Care Team Providers Care Japanese Interpreter Name Role Phone Doreen Mae APRN-FOOD AND DRUG RESEARCH SCIENTIST Primary Care Provider + Celia Carson PA-C Primary Care Provider + Reason for Visit * Reason Onset Date Comments Appointment 11/29/2018 Encounter Details Date Type Department Care Team (Late st Contact Info) Description 11/29/[address] [facility] General Internal Medicine [address] [facility] [address] [place] [address] Doreen Mae, GARMENT FORM ASSEMBLER-FOOD AND DRUG RESEARCH SCIENTIST [address] OF [facility] [place] [address] Appointment Social History Tobacco Use Types Packs/Day [...] voicemail to contact the scheduling department at [phone] Note: This is too soon to see me back. ?? Please schedule patient with PROTECTIVE SERVICES CASE WORKER Christianne Leon Segura, or [facility] for later in the month, ideally around 12/22/18. To keep appointment with me 01/24/19, as well. * Telephone Encounter - Doreen Dsouza APRN-CNP - 12/01/2018 10:59 AM CDT This is too soon to see me back. Please schedule patient with PROTECTIVE SERVICES CASE WORKER Christianne Leon Segura, or [facility] for later [...] chart review pt has an appt with Doreenjennifer Dsouza on 01/24/19 at 9:30 AM * Telephone Encounter - Doreen Dsouza APRN-CNP - 11/30/2018 11:28 AM CDT I will be out of the office 12/21-01/02. If patient needs to be seen within a month, will need to be seen by another PROTECTIVE SERVICES CASE WORKER: Celia Avalos, Alexia Nation or Arti Leon or will need to be seen before I am out of the office. I do not need to see her monthly. However, if it is required for her weight loss surgery, she can be scheduled. ThanksDoreen APRN-CNP * Telephone Encounter - Zulema Schwartz - 11/29/2018 4:19 PM CDT Pt: Angie Sanchez#: [id number] Pt calling to verify her next appointment [...] on filedocumented in this encounter Care Teams Japanese Interpreter Relationship Specialty Start Date End Date Doreen Mae APRN-CNP [address] [place], [place] [id number] PCP - General Nurse Practitioner 09/27/18 12/03/20 Celia Carson PA-C [address] [place] [address] PCP - General 12/04/20 documented as of this encounter
--- OUTSIDE RECORDS SUMMARY | 2025-02-24 08:58 | XMS_ITS | Encounter Summary ---
Author Organization [facility] Address [facility] [place] [address] Care Team Providers Care Vehicle Service Agent Name Role Phone Doreen Mae APRN-BANDAR Primary Care Provider + Celia Carson PA-C Primary Care Provider + Reason for Visit * Reason Onset Date Comments MEDICATION REFILL 03/28/2019 Encounter Details Date Type Department Care Team (Late st Contact Info) Description 03/28/2019 Refill [facility] General Internal Medicine [address] [facility] [address] [place] [address] Doreen Mae, PIGMENT PRESSER-BAKER APPRENTICE [address] OF [facility] [place] [address] MEDICATION REFILL Social History Tobacco Use Types [...] disorder documented in this encounter Care Teams Vehicle Service Agent Relationship Specialty Start Date End Date Doreen Mae APRN-CNP [facility] [place] [address] PCP - General Nurse Practitioner 09/27/18 12/03/20 Celia Carson PA-C [facility] [place] [address] PCP - General 12/04/20 documented as of this encounter
--- OUTSIDE RECORDS SUMMARY | 2025-02-24 08:58 | XMS_ITS | Clinical Summary ---
Author Organization [facility] [address] [facility] Address [address] [place] [address] Care Team Providers Care [facility] Name Role Phone Marilyn Augustin NP Primary Care Provider [phone] Allergies Active Allergy Reactions Criticality Noted Date Comments Nickel Swelling,Itching,Unknown Medium 03/29/2020 Medications blood pressure kit-extra large kitIndications:Es sential hypertension 1 each daily 1 kit 06/16/20 [...] 06/08/20 22 Active tretinoin (RETIN-A) 0.01 % gelIndications:Ac ne, [...] 11/06/19 23 Active amLODIPine (NORVASC) 5 mg tabletIndications :Hypertension, essential TAKE 1 TABLET(5 MG) BY MOUTH DAILY 90 tablet 1 05/31/20 23 Active fluticasone propion-salmetero L (ADVAIR HFA) 230-21 [...] 08/11/19 24 Active meclizine (ANTIVERT) 12.5 mg tabletIndications :Dizziness [...] BREATH 300 mL 4 09/13/19 24 Active albuterol HFA (PROVENTIL HFA,VENTOLIN HFA,PROAIR HFA) 90 mcg/actuation inhaler INHALE 2 PUFFS BY MOUTH EVERY 4 HOURS NEEDED FOR WHEEZING OR SHORTNESS OF BREATH 25.5 g 2 12/07/19 24 Active montelukast (SINGULAIR) 10 mg tabletIndications :Seasonal allergies Take 1 tablet (10 mg total) by mouth daily 30 tablet 1 05/02/20 24 Active omeprazole (PriLOSEC) 40 mg capsuleIndication s:Gastroesophagea l reflux disease without esophagitis Take 1 capsule (40 mg total) by mouth daily 90 capsule 1 06/12/20 24 Active amitriptyline (ELAVIL) 25 mg tablet TAKE 1 TABLET BY MOUTH ONCE NIGHTLY 100 tablet 09/10/19 25 Active fluticasone propionate (FLONASE) 50 mcg/actuation nasal sprayIndications: Seasonal allergies SPRAY 2 SPRAYS INTO EACH NOSTRIL EVERY DAY 16 mL 1 10/10/19 25 Active torsemide (DEMADEX) 20 mg tabletIndications :Localized edema TAKE 1 TABLET BY MOUTH EVERY DAY 90 tablet 1 12/09/[address] (CYMBALTA) 60 mg capsule Take 1 capsule (60 mg total) by mouth daily 90 capsule 01/10/20 25 Active metroNIDAZOLE (METROGEL) 0.75 % gelIndications:Ac ne Rosacea Apply twice daily to rosacea 45 g 1 01/11/20 25 026 Active Active Problems Problem Noted Date Diagnosed Date Seasonal allergies 05/02/2024 Acute bilateral low back pain without sciatica 0 08/11/2023 Chronic pain syndrome 08/11/2023 Overview (08/11/2023): Continue Cymbalta 90 mg daily as directed Chronic bilateral low back pain with bilateral s ciatica 06/09/2023 Assessment & Plan (06/09/2023 9:42 AM ANIMAL BIOLOGIST): This is a significant, separately identifiable problem [...] 5:30 PM CDT): She has appt with otr tanker truck driver pending that she will keep Trigger ring [...] 8:21 PM CDT): Has pending referral to otr tanker truck driver that she will keep Will evaluate further [...] 08/01/2021 Assessment & Plan (08/01/2021 9:59 AM ANIMAL BIOLOGIST): Resume prn torsemide. We discussed if using routinely will need bun/cr and K levels drawn in the next 3-4w. She anticipates 1-2x/week but will let us know if increasing to daily. Leg pain, bilateral 08/01/2021 Assessment & Plan (08/01/2021 9:59 AM ANIMAL BIOLOGIST): Will evaluate further with US of bilateral legs Elevated antinuclear antibody (RODRIGO) level 2020 Assessment & Plan (10/09/2021 12:09 PM CDT): Will restart cymbalta We reviewed autoimmune labs, will refer to rheumatology Assessment & Plan (08/01/2021 9:57 AM ANIMAL BIOLOGIST): Has pending lab work for Dr. Bunch that she will complete She reports when she called her insurance she was told that there might be a provider in network for rheumatology in [facility] - will try a different location. Assessment & Plan (06/20/2021 11:43 AM ANIMAL BIOLOGIST): We reviewed recent labs Will refer to rheum for further evaluation and treatment Pulmonary artery hypertension 06/03/2021 Assessment & Plan (08/01/2021 9:56 AM ANIMAL BIOLOGIST): Continue care with pulmonology Advised her to reschedule with cardiology Assessment & Plan (06/20/2021 11:43 AM ANIMAL BIOLOGIST): Continue with hctz daily Assessment & Plan (06/03/2021 7:01 PM ANIMAL BIOLOGIST): Advised attempts at bp control Will refer to cv for further evaluation and treatment Chronic neck pain 06/03/2021 Assessment & Plan (06/20/2021 11:43 AM ANIMAL BIOLOGIST): Will refer to closer orthopedist for her commute Assessment & Plan (06/03/2021 7:00 PM ANIMAL BIOLOGIST): Advised referral to specialist, will help her arrange Cervical radiculopathy 06/03/2021 Assessment & Plan (06/03/2021 7:00 PM ANIMAL BIOLOGIST): Advised referral, will help her arrange Need [...] provided. Assessment & Plan (06/09/2023 9:18 AM ANIMAL BIOLOGIST): Discussed the patient's BMI. The BMI is [...] provided. Assessment & Plan (08/01/2021 9:57 AM ANIMAL BIOLOGIST): Obesity is unchanged. Discussed the patient's BMI. The BMI is above average. BMI management plan is completed. BMI Follow-up includes: nutrition counseling, exercise counseling and education provided. Assessment & Plan (06/20/2021 11:43 AM ANIMAL BIOLOGIST): Obesity is unchanged. Discussed the patient's BMI. [...] 5:31 PM CDT): We reviewed notes from drug safety physician. She is going to call her current oxygen company and order a current supply as she is not certain she can walk down the hallway in the hospital for her 6min walk. She will communicate with the drug safety physician regarding these concerns. Assessment & Plan (01/01/2022 6:43 PM CDT): Continue with oxygen, she reports that she has refills at home. Assessment & Plan (12/03/2021 8:20 PM CDT): Continue care per pulmonology, refill meds as needed Assessment & Plan (10/09/2021 12:08 PM CDT): Continue with care per pulmonology Continue with bpap Assessment & Plan (08/01/2021 9:57 AM ANIMAL BIOLOGIST): Continue with care per Dr. Bunch Assessment & Plan (06/03/2021 7:00 PM ANIMAL BIOLOGIST): Continue with care per pulm Assessment & Plan (05/01/2021 11:39 AM CDT): Continue with care per drug safety physician Has pending sleep eval that she will keep rf meds as needed Assessment & Plan (09/25/2020 3:07 PM CDT): Retrieve records from drug safety physician, continue care same at this time. Essential hypertension 09/25/2020 Assessment & Plan (06/03/2021 6:58 PM ANIMAL BIOLOGIST): Add daily hctz Discontinue inderal Advised monitoring [...] 09/27/2018 Assessment & Plan (06/20/2021 11:44 AM ANIMAL BIOLOGIST): Will refer to closer orthopedist for her [...] provided. Assessment & Plan (08/11/2023 8:47 AM ANIMAL BIOLOGIST): Discussed the patient's BMI. The BMI is [...] 09/08/2021 Assessment & Plan (08/01/2021 9:58 AM ANIMAL BIOLOGIST): Due for screening and wants to see otr tanker truck driver (her previous MD has left the area). Will refer to Dr. Barreto for further assistance. Otalgia, right 06/20/2021 01/19/2022 Assessment & Plan (06/20/2021 11:43 AM ANIMAL BIOLOGIST): Will start on doxycycline Morbid obesity 06/20/2021 01/19/2022 Assessment & Plan (08/01/2021 9:57 AM ANIMAL BIOLOGIST): Obesity is unchanged. Discussed the patient's BMI. The BMI is above average. BMI management plan is completed. BMI Follow-up includes: nutrition counseling, exercise counseling and education provided. Assessment & Plan (06/20/2021 11:43 AM ANIMAL BIOLOGIST): Obesity is unchanged. Discussed the patient's BMI. [...] worsening. Assessment & Plan (06/20/2021 11:44 AM ANIMAL BIOLOGIST): Advised increased fluids, rest F/u in 1w if not improving, sooner if worsening Assessment & Plan (01/13/2021 9:22 AM CDT): She will continue with her nose spray per career center director She will hold the mdp and not [...] be of assistance. BMI 60.0-69.9, adult 09/27/2018 07/18/2 022 Assessment & Plan (10/09/2021 12:08 PM CDT): Obesity is unchanged. Discussed the patient's BMI. The BMI is above average. BMI management plan is completed. BMI Follow-up includes: nutrition counseling, exercise counseling and education provided. Assessment & Plan (06/03/2021 7:00 PM ANIMAL BIOLOGIST): Obesity is unchanged. Discussed the patient's BMI. The BMI is above average. BMI management plan is completed. BMI Follow-up includes: nutrition counseling, exercise counseling and education provided. Assessment & Plan (01/13/2021 9:22 AM CDT): She was advised weight loss. She was offered referral to [facility] and declines at this time. Assessment & Plan (12/16/2020 9:48 AM CDT): Obesity is unchanged. Discussed the patient's BMI. The BMI is above average. BMI management plan is completed. BMI Follow-up includes: nutrition counseling, exercise counseling and education provided. Encounters Date Type Department Care Team Description 01/10/2025 Telephone [facility] Medicine [address] [place] [address] [place] [phone] Marilyn Augustin, REFINERY OPERATOR [employer]OR RECOVERY UNIT 01/09/[address] [place] [phone] Marilyn Augustin, REFINERY OPERATOR [employer] Med Refill 01/09/[address] [place] [phone] Marilyn Augustin, REFINERY OPERATOR [employer] Med Refill from Last 3 Months Immunizations Immunization Administration [...] on file Legal Sex Female 1:37 AM ANIMAL BIOLOGIST Gender Identity Not on file Sexual Orientation [...] CDT Respiratory Rate 16 06/09/2023 9:13 AM ANIMAL BIOLOGIST Oxygen Saturation 99% 11/01/2024 7:03 AM CDT Inhaled Oxygen Concentration - - Weight 106.6 kg (235 lb) 11/01/2024 7:03 AM CDT Height 160 cm (5' 3) 11/01/2024 7:03 AM CDT Body Mass Index [...] 2024 11/28/2020, 11/26/2020, 11/26/2020, Additional history exists Influenza Vaccine (#1) 2025 , 06/09/2023, 04/08/2022, Additional history exists Depression Screening 11/01/2025 11/01/2024, 05/02/2024, 12/08/2023, Additional history exists Regular Well Visit/Exam 18-64 11/01/2025, 12/08/2023, 06/09/2023, Additional history exists DTaP/Tdap/Td Vaccine (2 - Td or Tdap) 01/05/2026 01/06/2016 Colon Cancer Screening-Colonoscopy 03/10/20332022 Hepatitis C Screening Completed 01/20/2022 Procedures Procedure Name Priority Date/Time Associated Diagnosis Comments FOLATE Routine 12/28/2024 9:01 AM CDT Other iron deficiency anemia VITAMIN B12 Routine 12/28/2024 8:58 AM CDT Other iron deficiency anemia Weakness VITAMIN D 25 HYDROXY Routine 12/28/2024 8:58 AM CDT Other iron deficiency anemia Weakness Vitamin D deficiency TSH Routine 12/28/2024 8:58 AM CDT Other iron deficiency anemia Weakness LIPID PANEL Routine 12/28/2024 8:58 AM CDT Other iron deficiency anemia Weakness COMPREHENSIVE METABOLIC PANEL Routine 12/28/2024 8:58 AM CDT Other iron deficiency anemia Weakness CBC WITH AUTO DIFFERENTIAL Routine 12/28/2024 8:58 AM CDT Other iron deficiency anemia Weakness HEPATITIS PANEL, ACUTE Routine 01/20/2022 9:29 AM CDT Encounter for annual routine gynecological examination Screening for STD (sexually transmitted disease) HM MAMMOGRAPHY Routine 10/10/2021 from Last 3 Months or Most Recently Relevant to Health Maintenance Results * Folate (12/28/2024 9:01 AM CDT) Pathologist [facility] Folate, Serum >24.0 ng/mL [facility] Comment: Reference Range Low: <3.4 Borderline: 3.4-5.4 Normal: >5.4 Blood 12/28/2024 9:01 AM CDT 12/28/2024 9:01 AM CDT us Marilyn Augustin NP LAB BLOOD ORDERABLES Final Re sult [facility] [address] [place] [address] * (ABNORMAL) CBC with auto differential (12/28/2024 8:58 AM CDT) Pathologist [facility] WBC 5.0 3.8 - 10.8 Thousand/u L [facility] RBC, POC 5.20(H) 3.80 - 5.10 Million/uL [facility] Hgb 9.1(L) 11.7 - 15.5 g/dL [facility] Hct 34.0(L) 35.0 - 45.0 % [facility] MCV 65.4(L) 80.0 - 100.0 fL [facility] MCH 17.5(L) 27.0 - 33.0 pg [facility] MCHC 26.8(L) 32.0 - 36.0 g/dL [facility] Comment: For adults, a slight decrease in the calculated MCHC value (in the range of 30 to 32 g/dL) is most likely not clinically significant; however, it should be interpreted with caution in correlation with other red cell parameters and the patient's clinical condition. Rdw 21.4(H) 11.0 - 15.0 % [facility] Platelets 293 140 - 400 Thousand/u L [facility] MPV 9.1 7.5 - 12.5 fL [facility] Neutrophils, abs 3,100 1,500 - 7,800 cells/uL [facility] Lymphocytes, abs 1,200 850 - 3,900 cells/uL [facility] Monocyte abs 600 200 - 950 cells/uL [facility] Eosinophils, abs 100 15 - 500 cells/uL [facility] Basophils, abs 0 0 - 200 cells/uL [facility] Neutrophils 62 % [facility] Lymphocyte pct 24 % [facility] Monocytes 12 % [facility] Eosinophils 2 % [facility] Basophils 0 % [facility] Comment [facility] Comment: The smear has been manually reviewed and the manual differential has been reported. Anisocytosis 2 + Microcytosis 2 + Ovalocytes 1 + Review of the peripheral smear reveals adequate numbers of platelets. Blood 12/28/2024 8:58 AM CDT 12/28/2024 8:59 AM CDT Narrative [facility] - 12/29/2024 7:46 AM CDT FASTING:YES FASTING: YES Marilyn M. Faires REFINERY OPERATOR VAPOR RECOVERY UNIT LAB BLOOD ORDERABLES Final Re sult Performing Organization Address [facility]/ZIP Co de Phone Number [facility] [address] [place] [phone] * Vitamin D 25 hydroxy (12/28/2024 8:58 AM CDT) Vitamin D 25-OH 52 30 - 100 ng/mL [facility] Comment: Vitamin D Status 25-OH Vitamin D: Deficiency: <20 ng/mL Insufficiency: 20 - 29 ng/mL Optimal: > or = 30 ng/mL For 25-OH Vitamin D testing on patients on D2-supplementation and patients for whom quantitation of D2 and D3 fractions is required, the [facility]) 25-OH VIT D, (D2,D3), LC/MS/MS is recommended: order code 91823 (patients >2yrs). See Note 1 Note 1 For additional information, please refer to http://education.Augmenix/faq/RTK682 (This link is being provided for informational/ educational purposes only.) Blood 12/28/2024 8:58 AM CDT 12/28/2024 8:59 AM CDT Narrative [facility] - 12/29/2024 7:46 AM CDT FASTING:YES FASTING: YES Marilyn Augustin REFINERY OPERATOR V[employer] REC[employer] UNIT LAB BLOOD ORDERABLES Final Re sult Performing Organization Address [facility] Co de Phone Number [facility] [address] [place] [address] * TSH (12/28/2024 8:58 AM CDT) TSH 2.52 mIU/L [facility] Comment: Reference Range > or = 20 Years 0.40-4.50 Ranges First trimester 0.26-2.66 Second trimester 0.55-2.73 Third trimester 0.43-2.91 Blood 12/28/2024 8:58 AM CDT 12/28/2024 8:59 AM CDT Narrative [facility] - 12/29/2024 7:46 AM CDT FASTING:YES FASTING: YES Marilyn Augustin REFINERY OPERATOR V[employer] UNIT LAB BLOOD ORDERABLES Final Re sult [facility] [address] [place] [address] * Vitamin B12 (12/28/2024 8:58 AM CDT) Vitamin B12 423 200 - 1,100 pg/mL [facility] Blood 12/28/2024 8:58 AM CDT 12/28/2024 8:59 AM CDT Narrative [facility] - 12/29/2024 7:46 AM CDT FASTING:YES FASTING: YES Marilyn Augustin REFINERY OPERATOR [employer] LAB BLOOD ORDERABLES Final Re sult Performing Organization Address City/[facility]/ZIP Co de Phone Number [facility] [address] [place] [address] * Lipid panel (12/28/2024 8:58 AM CDT) Cholesterol 148 <200 mg/dL [facility] HDL 62 > OR = 50 mg/dL [facility] Triglycerides 59 <150 mg/dL [facility] LDL 72 mg/dL (calc) [facility] Comment: Reference range: <100 Desirable range <100 mg/dL for primary prevention; <70 mg/dL for patients with CHD or diabetic patients with > or = 2 CHD risk factors. LDL-C is now calculated using the Amrik-Holli calculation, which is a validated novel method providing better accuracy than the Friedewald equation in the estimation of LDL-C. Amrik PERALTA et al. RADHA. 2013;310(19): 3610-5924 (http://education.Top Hat.Treehouse/faq/MAI920) Chol/HDL ratio 2.4 <5.0 (calc) [facility] Non-HDL, (LDL+VLDL) 86 <130 mg/dL (calc) [facility] Comment: For patients with diabetes plus 1 major ASCVD risk factor, treating to a non-HDL-C goal of <100 mg/dL (LDL-C of <70 mg/dL) is considered a therapeutic option. Blood 12/28/2024 8:58 AM CDT 12/28/2024 8:59 AM CDT Narrative [facility] - 12/29/2024 7:46 AM CDT FASTING:YES FASTING: YES us Marilyn Augustin REFINERY OPERATOR [employer] REC[employer]IT LAB BLOOD ORDERABLES Final Re sult [facility] [address] [place] [address] * Comprehensive metabolic panel (12/28/2024 8:58 AM CDT) Glucose 95 65 - 99 mg/dL [facility] Comment: Fasting reference interval BUN 14 7 - 25 mg/dL [facility] Creatinine 0.72 0.50 - 1.03 mg/dL [facility] eGFR 101 > OR = 60 mL/min/1.7 3m2 [facility] BUN/creat ratio SEE NOTE: 6 - 22 (calc) [facility] Comment: Not Reported: BUN and Creatinine are within reference range. Sodium 136 135 - 146 mmol/L [facility] Potassium, pl 3.9 3.5 - 5.3 mmol/L [facility] Chloride 99 98 - 110 mmol/L [facility] CO2 28 20 - 32 mmol/L [facility] Calcium 8.9 8.6 - 10.4 mg/dL [facility] Protein, sr 7.6 6.1 - 8.1 g/dL [facility] Albumin 4.1 3.6 - 5.1 g/dL [facility] GLOBULIN 3.5 1.9 - 3.7 g/dL (calc) [facility] Alb/glob ratio 1.2 1.0 - 2.5 (calc) [facility] Bilirubin, total 0.6 0.2 - 1.2 mg/dL [facility] Alk phos 133 37 - 153 U/L [facility] AST 17 10 - 35 U/L [facility] ALT (SGPT) 12 6 - 29 U/L [facility] Blood 12/28/2024 8:58 AM CDT 12/28/2024 8:59 AM CDT Narrative [facility] - 12/29/2024 7:46 AM CDT FASTING:YES FASTING: YES Marilyn Augustin REFINERY OPERATOR [employer] UNIT LAB BLOOD ORDERABLES Final Re sult [facility] [address] [place] [address] * Hepatitis panel, acute (01/20/2022 9:29 AM CDT) Hep A IgM Nonreactive Nonreactive [facility] Comment: Interpretive Data: If Hep A IgM Ab is reported as Equivocal, a new sample should be drawn in two weeks for testing. Current interpretive data was last revised on 19. Hep B core IgM Nonreactive Nonreactive [facility] Comment: Interpretive Data If HepB Core IgM Ab is reported as Equivocal, a new sample should be drawn in two weeks for testing. Current interpretive data was last revised on 19. Hep C Ab Nonreactive Nonreactive [facility] Comment: Interpretive Data Nonreactive: Antibodies to HCV [...] last revised on 2019. HepBsAg Nonreactive Nonreactive [facility] Blood 01/20/2022 9:29 AM CDT 01/20/2022 7:16 PM CDT Christy Newman REFINERY OPERATOR V[employer]OR RECOVERY UNIT LAB MICROBIOLOGY - GENERAL ORDER HERVE Final Result [facility] [address] [facility] Department [place] [address] * HM MAMMOGRAPHY (10/10/2021) us Historical Provider HEALTH MAINTENANCE Final Result from Last 3 Months or Most Recently Relevant to Health Maintenance Insurance MEDICARE [facility] Address: [address] [address] [place] [address] [facility] MEDICARE [facility] Address: [address] [address] [place] [address] Care Teams [employer] Front Ventilator Relationship Specialty Start Date End Date Marilyn Augustin NP [address] [address] PCP - General Internal Medicine 11/05/22
--- NOTE | 2025-02-24 08:59 | ECG_ITS ---
Test Date: 2025-02-24 09:05:58 Measurements Intervals [place] Rate: 77 P: 58 VT: 125 QRS: 50 QRSD: 102 T: 47 QT: 356 QTc: 404 Interpretive Statements SINUS RHYTHM NORMAL ECG No previous ECG available for comparison Electronically Signed On 02-24-2025 10:33:15 CDT by Denis Moody D.O.
--- OUTSIDE RECORDS SUMMARY | 2025-02-24 08:59 | XMS_ITS | Clinical Summary ---
Author Organization [facility] Address [address] [address] Care Team Providers Care Machine Applicator Cementer Name Role Phone Celia Carson PA-C Primary Care Provider + Source Comments [facility],non-owned Affiliates and Associated Physician Practices is amultiple site organization consisting of ambulatory clinics and hospital sitesin [place], [place], [place] and [place]. This disclosure is being madepursuant to the Care Everywhere program and may not contain all information available regarding this patient. Last updated 18.[facility] Allergies Active Allergy Reactions Criticality Noted [...] unspecified whether complicated, unspecified whether persistent (HCC) [place] 2 (two) sprays into each nostril once [...] Comments Blood Pressure 140/84 07/26/2020 10:47 AM CLEANING LABORER Pulse 106 05/28/2020 11:11 AM CLEANING LABORER Temperature 36.1 C (97 F) 07/26/2020 10:47 AM CLEANING LABORER Respiratory Rate 20 04/19/2020 11:35 AM CDT Oxygen Saturation 99% 07/26/2020 10:47 AM CLEANING LABORER Inhaled Oxygen Concentration - - Weight 145.2 kg (320 lb) 07/26/2020 10:47 AM CLEANING LABORER Height 160 cm (5' 3) 07/26/2020 10:47 AM CLEANING LABORER Body Mass Index 56.69 07/26/2020 10:47 AM CLEANING LABORER Plan of Treatment Health Maintenance Due Date Last Done Comments COLOGUARD (AGES 45-75) - COLON CA SCREENING 1972 COLON MONITORING 1972 COLONOSCOPY - COLON CA SCREENING 1972 CT COLONOGRAPHY - COLON CA SCREENING 1972 Colorectal Cancer Screening 1972 FIT - COLON CA SCREENING 1972 FLEX SIG - COLON CA SCREENING 1972 HIV SCREENING 01/14/1987 HEPATITIS C SCREENING 01/10/1990 DTAP/TDAP/TD VACCINES (1 - Tdap) 01/14/1991 HEPATITIS B VACCINE (1 of 3 - 19+ 3-dose series) 01/14/1991 PNEUMOCOCCAL VACCINE 50+ (1 of 2 - PCV) 01/14/1991 PAP SMEAR 01/14/1993 MAMMOGRAM 05/02/2021 05/02/2019 ZOSTER VACCINE (1 of 2) 01/14/2022 COVID-19 VACCINE (3 - 4-25 season) 2024 11/26/2020, 11/07/2020 LIPID TESTING 05/30/2024 05/30/2019, 06/08/2018 DEPRESSION SCREENING 07/05/2024 INFLUENZA VACCINE (#1) 2025 , 03/29/2020, 03/30/2019, Additional history exists HIB VACCINE [...] Comments LIPID PROFILE Routine 05/30/2019 2:35 PM CLEANING LABORER Class 3 severe obesity with serious comorbidity and body mass index (BMI) of 50.0 to 59.9 in adult, unspecified obesity type MAMMO BILAT SCREENING Routine 05/02/2019 2:42 PM CDT Healthcare maintenance from Last 3 Months or Most Recently Relevant to Health Maintenance Results * LIPID PROFILE (05/30/2019 2:35 PM CLEANING LABORER) Cholesterol Total 141 <200 mg/dL 05/30/2019 3:21 PM [facility] HDL 58 >40 mg/dL 05/30/2019 3:21 PM [facility] Comment: ATP III Classification of HDL Cholesterol: <40 mg/dL: Considered a major risk factor. >60 mg/dL: Considered a negative risk factor. LDL Calculated 72 <100 mg/dL 05/30/2019 3:21 PM [facility] Comment: ATP III Classification of LDL Cholesterol: <100 mg/dL: Optimal 100 - 129 mg/dL: Near Optimal/Above Optimal 130 - 159 mg/dL: Borderline High 160 - 189 mg/dL: High >190 mg/dL: Very High Triglycerides 53 <150 mg/dL 05/30/2019 3:21 PM [facility] Comment: ATP III Classification of Triglycerides: <150 mg/dL: Normal 150 - 199 mg/dL: Borderline High 200 - 400 mg/dL: High >500 mg/dL: Very High Blood BLOOD SPECIMEN / Unknown Lab Venipuncture / Unknown 05/30/2019 2:35 PM CLEANING LABORER 05/30/2019 2:56 PM CLEANING LABORER Doreen Mae [facility] - CHEMISTRY ORDERABL ES Final Result [address] [phone] * MAMMO BILAT SCREENING (05/02/2019 2:42 PM CDT) Anatomical Region Laterality Modality Breast Bilateral Mammography 05/24/2019 10:3 5 AM CLEANING LABORER Impressions 05/24/2019 10:39 AM CLEANING LABORER IMPRESSION: No mammographic evidence of malignancy. ASSESSMENT: BI-RADS Category 1: Negative mammogram. RECOMMENDATION: Bilateral screening mammogram in one year. This report was electronically signed by URSULA DOZIER M.D. on 05/24/2019 10:39 AM . Narrative 05/24/2019 10:39 AM CLEANING LABORER SCREENING MAMMOGRAM DATE: 05/02/2019 COMPARISON: Prior mammograms just received from [facility] dated 01/25/2017 and 12/10/2010. 2017 report not [...] Most Recently Relevant to Health Maintenance Insurance [facility] Care Teams Machine Applicator Cementer Relationship Specialty Start Date End Date Celia Carson PA-C PCP - General 12/04/20
--- OUTSIDE RECORDS SUMMARY | 2025-02-24 08:59 | XMS_ITS | Clinical Summary ---
Author Organization [facility] Address [address] [place] [address] Care Team Providers Care Cigarette Package Examiner Name Role Phone Unavailable Primary Care Provider [...] 11:14 AM CDT Height 160 cm (5' 3) 03/06/2022 11:14 AM CDT Body Mass Index [...]
--- OUTSIDE RECORDS SUMMARY | 2025-02-24 08:59 | XMS_ITS | Patient Health Record ---
Author Organization [facility] [employer] [facility] ([id number]) Address [address] [place] [address] Care Team Providers Care Sales Attendant Name Role Phone Yannick Glasgow Unavailable [phone] Michael Gleason Unavailable Unavailable Higinio Mcpherson Unavailable [phone] Amy Chopra Unavailable [phone] Ifeoma Ruiz Unavailable [phone] Mark Ellsworth Unavailable [phone] Allergies Allergen (clinical drug ingredient) Drug/Non Drug Allergy documented on EMR Reaction Allergy Type Onset Date Status nickel Nickel other reaction Allergy Activ e Reason For Referral No Information Medications Medication SIG (Take, Route, Frequency, Duration) Notes Start Date End Date Status EpiPen 2-Kurt 0.3 MG/0.3ML as directed intramuscularly once; Duration: 30 days 4 Active Mupirocin 2 % 1 sara applied topically 3 times a day Not-Taking Symbicort 160-4.5 MCG/ACT 2 puff(s) inhaled 2 times a day Not-Taking Fluticasone Propionate 50 MCG/ACT 2 spray(s) in each nostril twice a day; Duration: 30 days Active Azelastine HCl 137 MCG/SPRAY 2 spray(s) intranasally 2 times a day; Duration: 30 days Not-Taking Cetirizine HCl 10 MG 1 tab(s) orally once a day; Duration: 30 days Active TORSEMIDE 20 mg 1 tab(s) orally once a day Not-Taking CETIRIZINE 10 mg 1 tab(s) orally once a day; Duration: 30 days Active Amitriptyline HCl 25 MG TAKE 1 TABLET BY MOUTH ONCE NIGHTLY Oral; Duration: 90 Days Active Torsemide 20 MG 1 tab(s) orally once a day Active Baclofen 10 MG 1 tab(s) orally 3 times a day As needed Active Omeprazole 40 MG 1 cap(s) orally once a day Active Budesonide-Formoterol Fumarate 160-4.5 MCG/ACT 2 puff(s) inhaled 2 times a day Not-Taking BUSPIRONE 10 mg 1 tab(s) orally 2 times a day Not-Taking Fluconazole 150 MG 1 tablet Orally once then another 72 hours later; Duration: 2 days Active BACLOFEN 10 mg 1 tab(s) orally 3 times a day Not-Taking HYDROCHLOROTHIAZIDE 12.5 mg 1 cap(s) orally once a day Not-Taking AZELASTINE NASAL 137 mcg/inh 2 spray(s) intranasally 2 times a day Not-Taking FLUTICASONE NASAL 50 mcg/inh 1 spray(s) in each nostril once a day Not-Taking MUPIROCIN TOPICAL 2% 1 sara applied topically 3 times a day Not-Taking FERROUS SULFATE Not- Taking SYMBICORT 160 mcg-4.5 mcg/inh 2 puff(s) inhaled 2 times a day Not-Taking EPIPEN 2-KURT 0.3 mg as directed intramuscularly once; Duration: 30 days 4 Not-Taking BUDESONIDE-FORMOTEROL 160 mcg-4.5 mcg/inh 2 puff(s) inhaled 2 times a day Not-Taking OMEPRAZOLE 40 mg 1 cap(s) orally once a day Not-Taking Amoxicillin-Pot Clavulanate 875-125 MG 1 tablet Orally every 12 hrs; Duration: 10 days 5 Active AZELASTINE NASAL 137 mcg/inh 2 spray(s) intranasally 2 times a day; Duration: 30 day(s) 4 Not-Taking FLUTICASONE NASAL 50 mcg/inh 2 spray(s) in each nostril BID; Duration: 30 day(s) 4 Not-Taking CETIRIZINE 10 mg 1 tab(s) orally once a day; Duration: 30 days 4 Not-Taking ACTHIB (HIB) - 0.5 mL intramuscularly once; Duration: 1 dose(s) Not-Taking Vitamin D3 125 MCG (5000 UT) 1 capsule Orally Once a day; Duration: 30 days Active Tezspire 210 MG/1.91ML as directed Subcutaneous once; Duration: 28 days Active Spiriva Respimat 1.25 MCG/ACT 2 puff(s) inhaled once a day Not-Taking Advair HFA 230 MCG-21 MCG 2 PUFF(S) INHALED 2 TIMES A DAY *Please review and pick correct strength-formul ation from [employer] options. If intended option is not shown, discontinue and re-order from Quick Search* Not-Taking Amoxicillin-Pot Clavulanate 875-125 MG 1 tablet Orally every 12 hrs; Duration: 10 days Not-Taking PNEUMOVAX 23 - 0.5 mL intramuscularly once; Duration: 1 dose(s) Not-Taking busPIRone HCl 10 MG 1 tab(s) orally 2 times a day Not-Taking Montelukast Sodium 10 MG 1 tab(s) orally once a day Not-Taking Amoxicillin-Pot Clavulanate 875-125 MG Oral; Duration: 7 Days Not-Taking ALBUTEROL 90 mcg/inh 2 puff(s) inhaled every 6 hours Not-Taking NASAL WASHES N/A as directed intranasally as needed; Duration: 30 days Active FLUTICASONE NASAL 50 mcg/inh 2 spray(s) in each nostril twice a day; Duration: 30 days Active AZELASTINE NASAL 137 mcg/inh 2 spray(s) intranasally 2 times a day; Duration: 30 days Active Trelegy Ellipta 200-62.5-25 MCG/ACT USE 1 INHALATION BY MOUTH ONCE DAILY; Duration: 90 Active SPIRIVA RESPIMAT 1.25 mcg/inh 2 puff(s) inhaled once a day Active ADVAIR HFA 230 mcg-21 mcg 2 puff(s) inhaled 2 times a day Active hydroCHLOROthiazide 12.5 MG 1 cap(s) orally once a day Not-Taking Albuterol Sulfate HFA 108 (90 Base) MCG/ACT 2 puff(s) inhaled every 6 hours; Duration: 30 days As needed Active Ferrous Sulfate *Please review and pick correct strength-formul ation from [employer] options. If intended option is not shown, discontinue and re-order from Quick Search* Not-Taking Amoxicillin-Pot Clavulanate 875-125 MG Oral; Duration: 7 Days Not-Taking Amoxicillin-Pot Clavulanate 875-125 MG Oral; Duration: 7 Days Active MONTELUKAST 10 mg 1 tab(s) orally once a day Active Trelegy Ellipta 200-62.5-25 MCG/ACT 1 puff Inhalation Once a day; Duration: 30 days Active Azelastine HCl 137 MCG/SPRAY 2 spray(s) intranasally 2 times a day Not-Taking Fluticasone Propionate 50 MCG/ACT 1 spray(s) in each nostril once a day Not-Taking Amoxicillin-Pot Clavulanate 875-125 MG Oral; Duration: 7 Days Active D3-50 1250 mcg 1 cap(s) orally once a week; Duration: 60 days Not-Taking Amoxicillin-Pot Clavulanate 875-125 MG Oral; Duration: 7 Days Active TEZSPIRE PRE-FILLED PEN ekko 210 mg/1.91 mL as directed subcutaneously every 4 weeks Not-Taking D3-50 1250 MCG 1 CAP(S) ORALLY ONCE A WEEK; Duration: 60 DAYS *Please review and pick correct strength-formul ation from [employer] options. If intended option is not shown, discontinue and re-order from Quick Search* 4 Not-Taking Pneumovax 23 - 0.5 ML INTRAMUSCULARLY ONCE; Duration: 1 DOSE(S) *Please review and pick correct strength-formul ation from [employer] options. If intended option is not shown, discontinue and re-order from Quick Search* 4 Not-Taking Social History Tobacco Use: Social History Observation Description Date Details (start date - stop date) Never Smoker NA - NA Sex Assigned At : Social History Observation Description Sex Assigned At Female Smoking Smart Form: Question Answer Notes Are you a: never smoker Problems Problem Type SNOMED Code ICD Code Onset Dates Problem Status W/U Status Risk Notes Problem Vitamin D deficiency (76785256) Vitamin D deficiency, unspecified (E55.9) Active confirmed Problem Chronic allergic conjunctivitis (85662395) Other chronic allergic conjunctivitis (H10.45) Active confirmed Problem Allergic rhinitis caused by pollen (disorder) (24045350) Allergic rhinitis due to pollen (J30.1) Active confirmed Problem Allergic rhinitis (36460267) Other allergic rhinitis (J30.89) Active confirmed Problem Uncomplicated severe persistent asthma (501720671) Severe persistent asthma, uncomplicated (J45.50) Active confirmed Problem Allergic rhinitis caused by animal hair and dander (281347295774495) Allergic rhinitis due to animal (cat) (dog) hair and dander (J30.81) Active confirmed Problem Chronic sinusitis (04016618) Chronic sinusitis, unspecified (J32.9) Active confirmed Problem Essential hypertension (31024351) Essential (primary) hypertension (I10) Active confirmed Vital Signs Respiratory Rate 17 /min 12/21/2024 Blood pressure diastolic 76 mm Hg 01/18/2025 Oximetry 98 % 01/18/2025 Height 63 in 01/18/2025 Blood pressure systolic 177 mm Hg 01/18/2025 Weight 320.8 lbs 01/18/2025 BMI 56.82 kg/m2 01/18/2025 Encounters Encounter Location Date Provider Diagnosis [facility] [address] [place] [address] [place] [address] [address] 05/08/2024 Yannick Glasgow Allergic rhinitis du e to pollen J30.1 ; Allergic rhinitis due to animal (cat) (dog) hair and dander J30.81 ; Other allergic rhinitis J30.89 ; Other chronic allergic conjunctivitis H10.45 ; Severe persistent asthma, uncomplicated J45.50 ; Acute serous otitis media, right ear H65.01 ; Chronic sinusitis, unspecified J32.9 ; Vitamin D deficiency, unspecified E55.9 and Essential (primary) hypertension I10 [facility] [address] [place] [address] [place] [address] [address] 01/18/2025 Amy Chopra Allergic rhinitis du e to pollen J30.1 ; Severe persistent asthma, uncomplicated J45.50 ; Allergic rhinitis due to animal (cat) (dog) hair and dander J30.81 ; Other allergic rhinitis J30.89 ; Other chronic allergic conjunctivitis H10.45 ; Vitamin D deficiency, unspecified E55.9 ; Chronic sinusitis, unspecified J32.9 and Essential (primary) hypertension I10 [facility] [address] [place] [address] [place] [address] [address] 08/29/2024 Yannick Glasgow Allergic rhinitis du e to pollen J30.1 ; Severe persistent asthma, uncomplicated J45.50 ; Allergic rhinitis due to animal (cat) (dog) hair and dander J30.81 ; Other allergic rhinitis J30.89 ; Other chronic allergic conjunctivitis H10.45 ; Vitamin D deficiency, unspecified E55.9 ; Essential (primary) hypertension I10 and Chronic sinusitis, unspecified J32.[address] [address] 12/21/2024 Higinio Mcpherson Severe persistent asthma, uncomplicated J45.[address] [address] 11/09/2024 Higinio Mcpherson Severe persistent asthma, uncomplicated J45.[address] [address] 12/14/2024 Higinio Mcpherson [address] [address] 01/18/2025 Amy Chopra [facility] [address] [place] [address] 11/08/2024 Ifeoma Ruiz Severe persistent asthma, uncomplicated J45.50 [facility] [address] [place] [address] 08/09/2024 Yannick Glasgow [address] [address] 06/19/2024 Yannick Glasgow [address] [address] 05/08/2024 Yannick Glasgow Assessments Encounter Date Diagnosis (ICD Code) Assessment Notes Treatment Notes Treatment Clinical Notes Section Notes 05/08/2024 Allergic rhinitis due to pollen (ICD-10 [...] complications in her personal lifea at the [facility]. Return in 2 months for E&M 05/08/2024 [...] with Asthma at age 37 with first live source operator. At the time she was experiencing [...] Severe persistent asthma, uncomplicated (ICD-10 - J45.50) 12/21/2024 Severe persistent asthma, uncomplicated (ICD-10 - J45.50) 01/18/2025 Severe persistent asthma, uncomplicated (ICD-10 - J45.50) She was formally diagnosed with Asthma at age 37 with first live source operator. At the time she was experiencing [...] Tezspire, she is only using O2 at bedtime with no recent PRN use. No OCS in 12 months. She started Tezspire in January 2023 with [place] with clear subjective benefit. She has since switched to Dr. Gleason for care who does not prescribe Tezspire. Of note, transferring care to Dr. Archer in 04/2025 so may transfer Tezspire to her office. ACT 16 today, per patient due to presumed sinus infection. Lungs CTA, no evidence of crackles, wheezing. - Reports recent CT and Chest Xray that were fine. Records to be requested. - Spirometry was performed at initial visit showing severe obstruction. Spirometry declined today. - Given severe prior history, would highly advised continued observation in office after dosing. - Continue Trelegy and LTRA - Continue use of OSMAR with spacer. - Consider SCIT as above. - Tezspire tolerated today without issue. - Treat presumed sinusitis - see below - Return in 4 weeks for Tezspire dosing and E&M 01/18/2025 Allergic rhinitis due to pollen (ICD-10 - [...] in her personal life at the moment. - Continue medications as listed above. 01/18/2025 Allergic rhinitis due to animal (cat) (dog) hair and dander (ICD-10 - J30.81) Follow allergen avoidance, meds and consider SCIT as an adjunctive treatment to current regimen 08/29/2024 Allergic rhinitis due to animal (cat) [...] as an adjunctive treatment to current regimen 01/18/2025 Other allergic rhinitis (ICD-10 - J30.89) Follow allergen avoidance, meds and consider SCIT as an adjunctive treatment to current regimen 08/29/2024 Other chronic allergic conjunctivitis (ICD-10 - H10.45) Given ocular signs and symptoms I encouraged allergy avoidance measures and meds as above. If symptoms persist, consider adding additional medications including intraocular antihistamine/mast cell stabilizer, PRN and consider SCIT as an adjunctive measure 01/18/2025 Other chronic allergic conjunctivitis (ICD-10 - H10.45) Given ocular signs and symptoms I encouraged allergy avoidance measures and meds as above. If symptoms persist, consider adding additional medications including intraocular antihistamine/mast cell stabilizer, PRN and consider SCIT as an adjunctive measure 05/08/2024 Severe persistent asthma, uncomplicated (ICD-10 - J45.50) She was formally diagnosed with Asthma at age 37 with first live source operator. At the time she was experiencing [...] OSMAR with spacer. Consider SCIT as above 05/08/2024 Acute serous otitis media, right ear (ICD-10 - H65.01) Increased ear pressure and pain for the past few weeks with purulence noted behind TM on PE. Plan on treatment with Augmentin. Also noted history of yeast infections so will send Diflucan preventatively 08/29/2024 Vitamin D deficiency, unspecified (ICD-10 - E55.9) She has since finished 50K IU weekly. Plan to start 5K daily 01/18/2025 Vitamin D deficiency, unspecified (ICD-10 - E55.9) She has since finished 50K IU weekly. Plan to start 5K daily - Will obtain repeat Vitamin D level at this time with PIDD workup. 08/29/2024 Essential (primary) hypertension (ICD-10 - I10) BP elevated today without symptoms of urgency or emergency. Continue serial checks and follow-up with PCP 05/08/2024 Chronic sinusitis, unspecified (ICD-10 - J32.9) Recurrent sinus infections requiring abx multiple times a year meeting JMF criteria for modified PID work-up. Showing inadequate protection to S. pnumo and Hib. Advised obtianing boosters 01/18/2025 Chronic sinusitis, unspecified (ICD-10 - J32.9) Recurrent sinus infections requiring abx multiple times a year meeting JMF criteria for modified PID work-up. Showing inadequate protection to S. pnumo and Hib. Previously advised obtianing boosters though did not obtain. - Today, reporting 10 days of increased nasal congestion, sinus pressure and tenderness with green mucus. Concerned it will travel to my chest as she has started coughing. Reporting thick green mucus. Lungs CTA today. Will treat with Augmentin PO BID x 10 days. Instructed to seek urgent evaluation for any lower airways or worsening symptoms. Patient verbalized understanding. - Last treated for sinusitis at our office in 05/2024, treated with Augmentin x 10 days. Patient requesting 10 day RX as she has attempted 5 day antibiotics but ends up needing additional antibiotcs and steroids. - Updated PIDD workup to be obtained as it was last obtained in 07/2023. Patient will likely need boosters. Discussed at length with patient. Plan to obtain labs when feeling well. Plan to booster based off results. 01/18/2025 Essential (primary) hypertension (ICD-10 - I10) BP elevated today without symptoms of urgency or emergency. Continue serial checks and follow-up with PCP - Patient reports stopping JEREMIAH medication months ago, reports elevation today due to mother's recent passing 3 days ago. Instructed to monitor at-home and discuss with PCP. 05/08/2024 Vitamin D deficiency, unspecified (ICD-10 - [...] checks and follow-up with PCP 10/10/2024 Other 12/07/2024 Other 08/29/2024 Other 11/09/2024 Other 12/21/2024 Other 01/18/2025 Other Plan Of Treatment Pending Test Test Name Order Date STREPTOCOCCUS PNEUMONIAE IGG AB (23 SERO TYPES) 07/28/2023 STREPTOCOCCUS PNEUMONIAE IGG AB (23 SERO TYPES) 01/18/2025 DIPHTHERIA ANTITOXOID AND TETANUS ANTITO XOID ANTIBODIES 01/18/2025 TETANUS ANTITOXOID ANTIBODY (EIA) 2023 DIPHTHERIA ANTITOXOID ANTIBODY 4 VITAMIN D, 25-OH, TOTAL, IA 01/18/2025 HAEMOPHILUS INFLUENZAE B ANTIBODY, IGG 0 07/28/2023 HAEMOPHILUS INFLUENZAE B ANTIBODY, IGG 0 01/18/2025 IMMUNOGLOBULINS A/E/G/M,SERUM 01/18/2025 Next Appt Details Provider Name:Higinio Mcpherson , 03/08/2025 08:30:00 AM, [facility], [address], [address], Insurance Providers Payer Name Payer Address Payer Phone Subscriber Number Group Number Insured Name Patient Relationship to Insured Coverage Start Date Coverage End Date [employer] Medicare [address] [address] [place] [address] [id number] Angie Leos Self - patient is the insured 5 Medical (General) History Medical History History ICD Code Asthma Hypertension Sinusitis Osteoarthritis Surgical History Surgery Date(Month/Year) sinus surgery carpal tunnel release Ablation Hospitalization History Reason Date(Month/Year) asthma exacerbation
--- OUTSIDE RECORDS SUMMARY | 2025-02-24 08:59 | XMS_ITS | Encounter Summary ---
Author Organization [facility] Address [facility] [address] Care Team Providers Care Register In Chancery Name Role Phone Doreen Mae APRN-SOLUTION SALES SENIOR EXECUTIVE Primary Care Provider + Celia Carson PA-C Primary Care Provider + Encounter Details Date Type Department Care Team (Late st Contact Info) Description 03/29/2019 Telephone [facility] [address] [place], [place] [id number] Doreen Mae, ROLLER PRINT TENDER-SOLUTION SALES SENIOR EXECUTIVE [address] [place] [address] Social History Tobacco Use Types Packs/Day Years [...] beforeher appointment tomorrow. Patient Call Back number: [phone] documented in this encounter Plan of Treatment Not on file documented as of this encounter Visit Diagnoses Not on filedocumented in this encounter Care Teams Register In Chancery Relationship Specialty Start Date End Date Doreen Mae APRN-CNP [address] [place] [address] PCP - General Nurse Practitioner 09/27/18 12/03/20 Celia Carson PA-C [address] [place] [address] PCP - General 12/04/20 documented as of this encounter
--- OUTSIDE RECORDS SUMMARY | 2025-02-24 08:59 | XMS_ITS | Encounter Summary ---
Author Organization [facility] Address [facility] [place] [address] Care Team Providers Care State Auditor Name Role Phone Doreen Mae APRN-PRESBYTERIAN CLERGY Primary Care Provider + Celia Carson PA-C Primary Care Provider + Reason for Visit * Reason Onset Date Comments MEDICATION REFILL 02/20/2019 MEDICATION REFILL 02/27/2019 Encounter Details Date Type Department Care Team (Late st Contact Info) Description 02/20/2019 Refill [facility] [address] [facility] [address] [place] [address] Doreen Mae, TOP LIFT COMPRESSOR-PRESBYTERIAN CLERGY [address] OF [facility] [place] [address] MEDICATION REFILL; MEDICATION REFILL Social History Tobacco [...] disorder documented in this encounter Care Teams State Auditor Relationship Specialty Start Date End Date Doreen Mae APRN-PRESBYTERIAN CLERGY [address] [place] [address] PCP - General Nurse Practitioner 09/27/18 12/03/20 Celia Carson PA-C [address] [place] [address] PCP - General 12/04/20 documented as of this encounter
[2025-02-24 09:00] VITALS: BP 128/65; PULSE 85; RESP 21; TEMP 36.5; O2SAT 97
[2025-02-24 09:06] VITALS: PULSE 81; O2SAT 97
[2025-02-24 09:17] LABS: Hematocrit 29.1 % (37.0-47.0); Hemoglobin 7.8 g/dL (12.0-15.0); Immature Granulocyte Percent A 0.4 % (0-0.5); Lymphocytes Absolute Auto 1.01 K/mm3 (0.9-3.2); Mean Corpuscular HGB Conc 26.8 g/dl (32-36); Mean Corpuscular Hemoglobin 17.3 pg (26-34); Mean Corpuscular Volume 64.5 fl (80-100); Nucleated Red Blood Cells Absolute Auto 0.000 K/mm3 (0.0-0.012); Nucleated Red Blood Cells Perc 0.0 % (0.0-0.2); Platelet Count Result 229 k/mm3 (150-375); Red Blood Count 4.51 M/mm3 (4.2-5.4); White Blood Count 4.8 K/mm3 (4.5-10.0)
[2025-02-24 09:28] LABS: Alveolar/Arterial O2 Gradient 28.9 mmHg; Carboxyhemoglobin 1.5 % THb (0-2.0); Fractional Inspired Oxygen 21 %; HCO3 ABG 31.2 mEq/l (22.0-26.0); Methemoglobin ABG 0.6 %THb (0-1.5); Oxygen Content ABG 9.8 %vol (16.0-22.0); Oxygen Saturation ABG 92.5 % (95.0-100.0); PCO2 ABG 48.1 mmHg (35.0-45.0); PO2 ABG 63.2 mmHg (80.0-100.0); PO2 FiO2 Ratio Arterial Blood 3.01 %; Reduced Hemoglobin 9.4 %THb (0-5.0)
[2025-02-24] MEDS: IPRATROPIUM 0.5 MG/ALBUTEROL SULFATE 2.5 MG AMPUL.NEB 3 ML INHALATION (09:36)
[2025-02-24 09:37] VITALS: PULSE 73; RESP 22
[2025-02-24 09:40] LABS: Modified Allen's Test Pass; Site Drawn RIGHT RADIAL
[2025-02-24 09:40] LABS: Alanine Aminotransferase 28 U/L (6-35); Albumin Level 4.1 g/dL (3.5-5.1); Alkaline Phosphatase 150 U/L (38-126); Anion Gap 5 mmol/L (4-12); Aspartate Amino Transferase 31 U/L (14-36); Bilirubin,Total 0.7 mg/dL (0.2-1.3); Blood Urea Nitrogen 10 mg/dL (7-17); Calcium 9.2 mg/dL (8.4-10.2); Carbon Dioxide 31 mmol/L (22-30); Chloride 100 mmol/L (98-107); Estimated CRCL calculation 115 ml/min; Estimated Glomerular Filt Rate > 60; Glucose 105 mg/dL (65-110); Hypochromasia 2+; Poikilocytosis 1+; Potassium 4.2 mmol/L (3.4-5.0); Sodium 136 mmol/L (137-145); Total Protein 8.1 g/dL (6.3-8.2)
[2025-02-24 09:41] LABS: Ovalocytes 1+; Schistocytes None Seen; Stomatocytes 1+; Tear Drop Cells 1+
[2025-02-24 09:43] VITALS: PULSE 81; RESP 20
[2025-02-24 09:52] VITALS: O2SAT 96
--- NOTE | 2025-02-24 10:18 | ED.GENADULT ---
HPI - General Adult General Chief complaint: Shortness of Breath/Dyspnea Stated complaint: SOB x1 week, asthma, concern for high CO2 Time Seen by Provider: 02/24/25 08:59 History of Present Illness HPI narrative: Patient is a 55-year-old female who presents the ER with shortness of breath. Ongoing over last week. Has history of asthma. She wears oxygen as needed. Typically only with walking. She wears BiPAP at night. She has been on Augmentin for possible infection. Related Data Home Medications ?Medication ?Instructions ?Recorded ?Confirmed ?Last Taken ?Type cetirizine 10 mg tablet (Zyrtec) 10 mg PO DAILY 08/06/19 09/27/24 10/19/22 History Home Oxygen 04/01/22 09/27/24 Unknown History Walkabout Mini Oxygen System 04/01/22 09/27/24 Unknown History ferrous sulfate 325 mg (65 mg 325 mg PO Q48H 01/27/23 09/27/24 Unknown History iron) tablet,delayed release tezepelumab-ekko 210 mg/1.91 mL 210 mg subcut MONTHLY 03/13/23 09/27/24 Unknown History (110 mg/mL) subcutaneous pen injector (Tezspire) amitriptyline 25 mg tablet 25 mg PO DAILY 04/21/23 09/27/24 Unknown History amlodipine 5 mg tablet 5 mg PO DAILY 04/21/23 09/27/24 Unknown History fluticasone propionate 50 intranasal 04/21/23 09/27/24 Unknown History mcg/actuation nasal spray,suspension duloxetine 60 mg capsule,delayed 90 mg PO DAILY 07/29/23 09/27/24 Unknown History release fluticasone fur. 200 mcg-umeclid 1 inh inhalation DAILY 09/27/24 09/27/24 Unknown History 62.5 mcg-vilant 25 mcg inhalat.powder (Trelegy Ellipta) Allergies Allergy/AdvReac Type Severity Reaction Status Date / Time nickel Allergy Intermediate Swelling Verified 02/24/25 09:06 METALS Allergy Intermediate Rash Uncoded 02/24/25 09:06 Review of Systems Review of Systems: All systems reviewed & are unremarkable except as noted in HPI and below Constitutional: Constitutional: Reports no additional constitutional complaints Respiratory: Respiratory: Reports no additional respiratory complaints Gastrointestinal: Gastrointestinal: Reports no additional gastrointestinal complaints Musculoskeletal: Musculoskeletal: Reports no additional musculoskeletal complaints Neurologic: Reports system reviewed and no additional complaints, except as documented [facility] Past Medical History Medical History (Updated 02/24/25 @ 12:28 by Holden Bundy MD) Iron deficiency anemia MRSA (methicillin resistant Staphylococcus aureus) carrier COVID-19 ruled out by laboratory testing Morbid obesity Obstructive sleep apnea Patient reports that her most recent sleep study showed no indication for CPAP. Hypertension Anxiety Chronic sinusitis Gastroesophageal reflux disease Fibromyalgia Tendonitis Asthma Surgical History Surgical History (Updated 11/13/24 @ 10:19 by Carrie Pedro [facility]) H/O: hysterectomy History of sinus surgery History of section X1 History of endometrial ablation History of tubal ligation (~2009) Anterior ethmoid and maxillary antrostomy. History of bilateral carpal tunnel release x2 Family History Family History (Updated 11/13/24 @ 10:18 by Carrie Pedro [facility]) Father Hypertension Mother Alive and well Grandparent Breast cancer Social History Social History Social History: The patient tells me that she is currently unemployed. She has 1 daughter. She also has a significant get other. She tells me that she has never smoked. Surrogate decision maker: Bisi Sanderson, mother. Code status: Full code. Smoking status: Unknown if ever smoked Second hand tobacco smoke exposure: No Alcohol intake: unknown Substance use: unknown Substance use type: does not use Lack of Transportation: No Lack of Food: Never True Current Housing: I Have Housing Concerned About Future Housing: No Difficulty Paying Gas/Electric Bills: No Difficulty Paying for Meds: No Currently Unemployed: No Education: High School Diploma/GED Difficulty w/ Childcare or Family Care: No Living arrangements: with family Additional living arrangements comments: Lives in [place] with a friend. 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 Gender identity (if verbalized by the patient): Female Sexual Orientation (if Verbalized by the Patient): Straight or Heterosexual Spiritual care concerns: No Exam Narrative: GENERAL: Well-appearing, morbidly obese, and in no acute distress. HEAD: Normocephalic, atraumatic.. ENT: Mucous membranes moist. CHEST: Clear to auscultation. No respiratory distress. HEART: Regular rate and rhythm. Normal peripheral pulses. ABDOMEN: Soft, nontender, nondistended. EXTREMITIES: Normal range of motion. No edema. SKIN: Warm, dry, no rash. NEURO: Alert and oriented x3. PSYCH: Normal mood and affect. Course Course Emergency Course: Patient resting comfortably. Labs reviewed with patient. Mild elevation and pCO2 but around her baseline. ABG compensated. Hemoglobin chronically low. Patient intermittently takes iron. Recommend taking it daily and if she is constipated to use a stool softener. This will improve her oxygen carrying capacity. Vital Signs Vital signs: Vital Signs Temperature 97.7 F 02/24/25 09:00 Pulse Rate 85 02/24/25 09:00 Respiratory Rate 21 H 02/24/25 09:00 Blood Pressure 128/65 02/24/25 09:00 Pulse Oximetry 97 02/24/25 09:00 Oxygen Delivery Room Air 02/24/25 09:00 Temperature 97.7 F 02/24/25 09:00 Pulse Rate 81 02/24/25 11:22 Respiratory Rate 20 02/24/25 11:22 Blood Pressure 123/60 02/24/25 11:22 Pulse Oximetry 97 02/24/25 11:22 Oxygen Delivery Room Air 02/24/25 09:52 Medical Decision Making Vital Signs Vital Signs: Vital Signs Temperature 97.7 F 02/24/25 09:00 Pulse Rate 85 02/24/25 09:00 Respiratory Rate 21 H 02/24/25 09:00 Blood Pressure 128/65 02/24/25 09:00 Pulse Oximetry 97 02/24/25 09:00 Oxygen Delivery Room Air 02/24/25 09:00 Temperature 97.7 F 02/24/25 09:00 Pulse Rate 81 02/24/25 11:22 Respiratory Rate 20 02/24/25 11:22 Blood Pressure 123/60 02/24/25 11:22 Pulse Oximetry 97 02/24/25 11:22 Oxygen Delivery Room Air 02/24/25 09:52 Lab Data 02/24/25 09:10 02/24/25 09:10 Labs: Lab Results 02/24/25 02/24/25 Range/Units 09:10 09:25 WBC 4.8 (4.5-10.0) K/mm3 RBC 4.51 (4.2-5.4) M/mm3 Hgb 7.8 L (12.0-15.0) g/dL Hct 29.1 L (37.0-47.0) % MCV 64.5 L (80-100) fl MCH 17.3 L (26-34) pg MCHC 26.8 L (32-36) g/dl RDW 21.0 H (11.5-14.5) % Plt Count 229 (150-375) k/mm3 MPV 8.8 (7.4-10.4) fl Immature Gran % (Auto) 0.4 (0-0.5) % Neut % (Auto) 64.2 (45.5-73.1) % Lymph % (Auto) 20.9 (18.3-44.2) % [place] % (Auto) 12.0 H (2.6-8.5) % Eos % (Auto) 2.1 (0-4.4) % Baso % (Auto) 0.4 (0.2-1.2) % Lymph # (Auto) 1.01 (0.9-3.2) K/mm3 [place] # (Auto) 0.6 (0.1-0.6) K/mm3 Eos # (Auto) 0.1 (0-0.3) K/mm3 Baso # (Auto) 0.0 (0.0-0.1) K/mm3 Abs Immat Gran (auto) 0.02 (0.00-0.031) K/mm3 Absolute Neuts (auto) 3.1 (1.3-6.7) K/mm3 Absolute Nucleated RBC 0.000 (0.0-0.012) K/mm3 Band Neutrophils % Not Reportable Nucleated RBC % 0.0 (0.0-0.2) % Platelet Estimate Adequate (Adequate) Hypochromasia 2+ Poikilocytosis 1+ Tear Drop Cells 1+ Ovalocytes 1+ Stomatocytes 1+ Schistocytes None seen Methemoglobin 0.6 (0-1.5) %THb Sodium 136 L (137-145) mmol/L Potassium 4.2 (3.4-5.0) mmol/L Chloride 100 (98-107) mmol/L Carbon Dioxide 31 H (22-30) mmol/L Anion Gap 5 (4-12) mmol/L BUN 10 (7-17) mg/dL Creatinine 0.69 L (0.7-1.0) mg/dL Estim Creat Clear Calc 115 ml/min Estimated GFR > 60 (59 - ) Glucose 105 (65-110) mg/dL Calcium 9.2 (8.4-10.2) mg/dL Total Bilirubin 0.7 (0.2-1.3) mg/dL AST 31 (14-36) U/L ALT 28 (6-35) U/L Alkaline Phosphatase 150 H (38-126) U/L Total Protein 8.1 (6.3-8.2) g/dL Albumin 4.1 (3.5-5.1) g/dL ABG Data ABG results: 02/24/25 09:25 Puncture Site Right radial ABG pH 7.430 ABG pCO2 48.1 H ABG pO2 63.2 L ABG PO2/FiO2 Ratio 3.01 ABG HCO3 31.2 H ABG O2 Saturation 92.5 L ABG O2 Content 9.8 L ABG Base Excess 6.2 A-a Gradient 28.9 Oxyhemoglobin 88.5 L Carboxyhemoglobin 1.5 Reduced Hemoglobin 9.4 H Total Hemoglobin 7.8 L* FiO2 21 Imaging Data Radiologist's impression: ITS Impressions Chest X-Ray 02/24/25 10:20 IMPRESSION: 1: NO ACUTE CARDIOPULMONARY DISEASE. ECG Data EKG #1: ECG completion date: 02/24/25 ECG completion time: 09:05 EKG Interpretation: normal rate (77), sinus rhythm, no ectopy, no ST changes, normal QRS and NL axis Discharge Plan Discharge Clinical Impression: Bronchitis Patient Disposition: Home Condition: Stable Instructions: Acute Bronchitis (ED) Additional Instructions: Please return to the emergency department if you develop severe and persistent chest pain, difficulty breathing, dizziness, leg swelling or if you are coughing up blood as these can be signs of a medical emergency. Please call your doctor for a follow up appointment to determine the need for further testing. Patient Language: Georgian Prescriptions: New prednisone 50 mg tablet 50 mg PO DAILY Qty: 7 0RF No Action cetirizine [Zyrtec] 10 mg Tablet 10 mg PO DAILY (DME) Walkabout Mini Oxygen System (DME) Home Oxygen Rx Instructions: 2 l/nc as needed SOB amitriptyline 25 mg tablet 25 mg PO DAILY amlodipine 5 mg tablet 5 mg PO DAILY fluticasone propionate 50 mcg/actuation spray,suspension intranasal duloxetine 60 mg capsule,delayed release(DR/EC) 90 mg PO DAILY albuterol sulfate 90 mcg/actuation HFA aerosol inhaler 2 puff INHALATION QID PRN (Reason: shortness of breath or wheezing) Qty: 8 6RF Rx Instructions: rescue inhaler albuterol sulfate 2.5 mg /3 mL (0.083 %) solution for nebulization 2.5 mg inhalation Q6-8H PRN (Reason: shortness of breath or wheezing) Qty: 90 6RF Spiriva Respimat 2.5 mcg/actuation mist 2 puff inhalation DAILY Qty: 4 6RF Trelegy Ellipta 200-62.5-25 mcg blister with device 1 inh inhalation DAILY hydrocortisone acetate [Anusol-HC] 25 mg suppository 25 mg RECTAL BID Qty: 20 0RF torsemide 20 mg Tablet 20 mg PO QAM Qty: 30 0RF Tezspire 210 mg/1.91 mL (110 mg/mL) pen injector 210 mg SUBCUT MONTHLY Rx Instructions: dispensed from pharmacy 03/02/23 ferrous sulfate 325 mg (65 mg iron) tablet,delayed release (DR/EC) 325 mg PO Q48H Rx Instructions: ;Take 1 tablet every other day for anem next dose due 01/28/23 fluticasone propion-salmeterol [Advair HFA] 230-21 mcg/actuation HFA aerosol inhaler See Rx Instructions .ROUTE .COMPLEX Qty: 12 6RF Dose Instruction: INHALE 2 PUFFS BY MOUTH TWICE DAILY Rx Instructions: INHALE 2 PUFFS BY MOUTH TWICE DAILY montelukast [Singulair] 10 mg tablet 10 mg PO DAILY Qty: 30 6RF omeprazole 20 mg capsule,delayed release(DR/EC) See Rx Instructions .ROUTE .COMPLEX Qty: 180 6RF Dose Instruction: TAKE 2 CAPSULES BY MOUTH DAILY Rx Instructions: TAKE 2 CAPSULES BY MOUTH DAILY Follow-up/Referrals: Charli,JOYCELYN Sanders [Primary Care Provider, Unknown] - 1 Week
[2025-02-24 11:22] VITALS: BP 123/60; PULSE 81; RESP 20; O2SAT 97
== END 2025-02-24 12:56 | disposition home or self-care (01) ==
PROVIDERS: Emergency Provider Emergency Medicine; PCP Nurse Practitioner Family
DX: J45.909 Unspecified asthma, uncomplicated (principal); I10 Essential (primary) hypertension; J32.9 Chronic sinusitis, unspecified; E66.01 Morbid (severe) obesity due to excess calories; Z68.43 Body mass index [BMI] 50.0-59.9, adult; D50.9 Iron deficiency anemia, unspecified; M79.7 Fibromyalgia; K21.9 Gastro-esophageal reflux disease without esophagitis; G47.33 Obstructive sleep apnea (adult) (pediatric); F41.9 Anxiety disorder, unspecified; Z86.14 Personal history of Methicillin resistant Staphylococcus aureus infection; Z90.710 Acquired absence of both cervix and uterus; Z79.899 Other long term (current) drug therapy
CPT/HCPCS: 36415; 36600; 71046; 80053; 82375; 82805; 83050; 85018; 85025; 93005; 94640; 99284

== ENCOUNTER 2025-03-22 01:14 | Day surgery (SDC) | payer MEDICARE, MEDICAID, SELFPAY ==
[2025-03-14 15:06] VITALS: BMI 58.5
--- OUTSIDE RECORDS SUMMARY | 2025-03-22 01:17 | XMS_ITS | Encounter Summary ---
Author Organization [facility] Address [facility]3 [facility] [place] [address] Care Team Providers Care Benefits Representative Name Role Phone Doreen Mae APRN-HIDE PULLER Primary Care Provider + Celia Carson PA-C Primary Care Provider + Encounter Details Date Type Department Care Team (Late st Contact Info) Description 03/29/2019 Telephone [facility] [address] [place], [place] [id number] Doreen Mae, FORGE OPERATOR HELPER-HIDE PULLER [address] [place] [address] Social History Tobacco Use Types Packs/Day Years [...] beforeher appointment tomorrow. Patient Call Back number: [phone] documented in this encounter Plan of Treatment Not on file documented as of this encounter Visit Diagnoses Not on filedocumented in this encounter Care Teams Benefits Representative Relationship Specialty Start Date End Date Doreen Mae APRN-CNP [address] [place] [address] PCP - General Nurse Practitioner 09/27/18 12/03/20 Celia Carson PA-C [address] [place] [address] PCP - General 12/04/20 documented as of this encounter
--- OUTSIDE RECORDS SUMMARY | 2025-03-22 01:17 | XMS_ITS | Encounter Summary ---
Author Organization [facility] Address [employer]3 [facility] [place] [address] Care Team Providers Care Laborer Gold Leaf Name Role Phone Doreen Mae APRN-LABOR TRAINING MANAGER Primary Care Provider + Celia Carson PA-C Primary Care Provider + Reason for Visit * Reason Onset Date Comments MEDICATION REFILL 02/20/2019 MEDICATION REFILL 02/27/2019 Encounter Details Date Type Department Care Team (Late st Contact Info) Description 02/20/2019 Refill [facility] [address] [facility] [address] [place] [address] Doreen Mae, VOCATIONAL TECHNICAL EDUCATION DIRECTOR-LABOR TRAINING MANAGER [address] OF [facility] [place] [address] MEDICATION REFILL; MEDICATION REFILL Social History Tobacco [...] disorder documented in this encounter Care Teams Laborer Gold Leaf Relationship Specialty Start Date End Date Doreen Mae APRN-LABOR TRAINING MANAGER [address] [place] [address] PCP - General Nurse Practitioner 09/27/18 12/03/20 Celia Carson PA-C [address] [place] [address] PCP - General 12/04/20 documented as of this encounter
--- OUTSIDE RECORDS SUMMARY | 2025-03-22 01:17 | XMS_ITS | Encounter Summary ---
Author Organization [facility] Address [facility]3 [facility] [place] [address] Care Team Providers Care Client Service Professional Name Role Phone Doreen Mae APRN-INVESTIGATIONS MANAGER Primary Care Provider + Celia Carson PA-C Primary Care Provider + Reason for Visit * Reason Onset Date Comments Appointment 11/29/2018 Encounter Details Date Type Department Care Team (Late st Contact Info) Description 11/29/2018 Telephone [facility] [address] [facility] [address] [place] [address] Doreen Mae, PROFESSOR OF BIOLOGICAL SCIENCES-INVESTIGATIONS MANAGER [address] OF [facility] [place] [address] Appointment Social History Tobacco Use Types Packs/Day [...] voicemail to contact the scheduling department at [phone] Note: This is too soon to see me back. ?? Please schedule patient with BALLISTIC TECHNICIAN Christianne Leon Segura, or Chap[facility] for later in the month, ideally around 12/22/18. To keep appointment with me 01/24/19, as well. * Telephone Encounter - Doreen Dsouza APRN-CNP - 12/01/2018 10:59 AM CDT This is too soon to see me back. Please schedule patient with BALLISTIC TECHNICIAN Christianne Leon Segura, or Chapis for later [...] will need to be seen by another BALLISTIC TECHNICIAN: Celia Avalos, Alexia Nation or Arti Leon or will need to be seen before I am out of the office. I do not need to see her monthly. However, if it is required for her weight loss surgery, she can be scheduled. ThanksDoreen APRN-CNP * Telephone Encounter - Zulema Schwartz - 11/29/2018 4:19 PM CDT Pt: Angie Sanchez#: [id number] Pt calling to verify her next appointment [...] on filedocumented in this encounter Care Teams Client Service Professional Relationship Specialty Start Date End Date Doreen Mae APRN-CNP [address] [place], [place] [id number] PCP - General Nurse Practitioner 09/27/18 12/03/20 Celia Carson PA-C [address] [place] [address] PCP - General 12/04/20 documented as of this encounter
--- OUTSIDE RECORDS SUMMARY | 2025-03-22 01:17 | XMS_ITS | Encounter Summary ---
Author Organization [facility] Address [facility]3 [facility] [place] [address] Care Team Providers Care Loading Machine Operator Name Role Phone Doreen Mae APRN-BANDAR Primary Care Provider + Celia Carson PA-C Primary Care Provider + Reason for Visit * Reason Onset Date Comments MEDICATION REFILL 03/28/2019 Encounter Details Date Type Department Care Team (Late st Contact Info) Description 03/28/2019 Refill [facility] [address] [facility] [address] [place] [address] Doreen Mae, RETURN CHECKER-SULFONATOR OPERATOR [address] OF [facility] [place] [address] MEDICATION REFILL Social History Tobacco Use Types [...] disorder documented in this encounter Care Teams Loading Machine Operator Relationship Specialty Start Date End Date Doreen Mae APRN-CNP [facility] [place] [address] PCP - General Nurse Practitioner 09/27/18 12/03/20 Celia Carson PA-C [facility]0 [place] [address] PCP - General 12/04/20 documented as of this encounter
--- OUTSIDE RECORDS SUMMARY | 2025-03-22 01:17 | XMS_ITS | Encounter Summary ---
Author Organization [facility] Address [facility]3 [facility] [place] [address] Care Team Providers Care Car Framer Name Role Phone ColumbusDoreen austin Enriqueta LODNONN-PURCHASING INTERNSHIP Primary Care Provider + Celia Carson PA-C Primary Care Provider + Encounter Details Date Type Department Care Team (Late st Contact Info) Description 06/14/2020 Telephone [facility] Pulmonary, Critical Care and Sleep Medicine [address] [place] [address] Smita Lopez MD [address] OF PULMONARY/[place] [address] Social History Tobacco Use Types Packs/Day Years [...] call: [facility]. She took first avail, 09/28/2019. She would like to be seen much sooner since [facility] was in [facility] in [place], [place]. They put her on oxygen and her oxygen levels are low, she said they are about 90, 91. Additionally, her PCP is ordering a HEART ECHO procedure. Please see about an earlier appt and call her. Patient Call Back number: [phone] MILL OPERATOR documented in this encounter Plan of Treatment Not on file documented as of this encounter Visit Diagnoses Not on filedocumented in this encounter Care Teams Car Framer Relationship Specialty Start Date End Date Doreen Mae, ASHLEY-BANDAR [address] [place] [address] PCP - General Nurse Practitioner 09/27/18 12/03/20 Celia Carson PA-C [address] [place] [address] PCP - General 12/04/20 documented as of this encounter
--- OUTSIDE RECORDS SUMMARY | 2025-03-22 01:17 | XMS_ITS | Encounter Summary ---
Author Organization [facility] Address [facility]3 [facility] [address] Care Team Providers Care Driver License Reviewing Officer Name Role Phone Doreen Mae APRN-ART THERAPY CERTIFIED SUPERVISOR Primary Care Provider + Celia Carson PA-C Primary Care Provider + Reason for Visit * Reason Onset Date Comments MEDICATION REFILL 01/23/2019 MEDICATION REFILL 02/20/2019 Encounter Details Date Type Department Care Team (Late st Contact Info) Description 01/23/2019 Refill [facility] [address] [facility] [address] [place] [address] Doreen Mae, PLANT MANAGER-ART THERAPY CERTIFIED SUPERVISOR [address] OF [facility] [place] [address] MEDICATION REFILL; MEDICATION REFILL Social History Tobacco [...] deficiency documented in this encounter Care Teams Driver License Reviewing Officer Relationship Specialty Start Date End Date Doreen Mae APRN-BANDAR [address] [place] [address] PCP - General Nurse Practitioner 09/27/18 12/03/20 Celia Carson PA-C [address] [place] [address] PCP - General 12/04/20 documented as of this encounter
--- OUTSIDE RECORDS SUMMARY | 2025-03-22 01:17 | XMS_ITS | Clinical Summary ---
Author Organization [facility] Address [address] [place] [address] Care Team Providers Care Forensic Engineer Name Role Phone Unavailable Primary Care Provider [...] PCV) 11/06/2022 11/06/2021 COVID-19 Vaccine (3 - 2024-2 6 season) 2025 11/26/2020, 11/07/2020 DTaP, Tdap and Td Vaccines [...]
--- OUTSIDE RECORDS SUMMARY | 2025-03-22 01:17 | XMS_ITS | Encounter Summary ---
Author Organization [facility] Address [address] [place] [address] Care Team Providers Care Line Haul Truck Driver Name Role Phone Marilyn Augustin NP Primary Care Provider [phone] Encounter Details Date Type Department Care Team (Late st Contact Info) Description 11/16/2024 Orders Only [facility] Information Management [address] [place] [address] Scanning, Provider Social History Tobacco Use Types [...] on file Legal Sex Female 1:37 AM LOOM FIXER HELPER Gender Identity Not on file Sexual Orientation [...] on filedocumented in this encounter Care Teams Line Haul Truck Driver Relationship Specialty Start Date End Date Marilyn Augustin NP [address] [facility] [address] [place] [address] PCP - General Internal Medicine 11/05/22 documented as of this encounter
--- OUTSIDE RECORDS SUMMARY | 2025-03-22 01:17 | XMS_ITS | Encounter Summary ---
Author Organization [facility] Address [facility]3 [facility] [place] [address] Care Team Providers Care Psychologist Engineering Name Role Phone Celia Carson PA-C Primary Care Provider + Encounter Details Date Type Department Care Team (Late st Contact Info) Description 12/04/2020 Telephone [facility] Pul[facility], Critical Care and Sleep Medicine [address] [place] [address] Smita Lopez MD [address] OF PULMONARY/[place] [address] Social History Tobacco Use Types Packs/Day Years [...] MyCHart is down. Patient Call Back number: [phone] documented in this encounter Plan of Treatment Not on file documented as of this encounter Visit Diagnoses Not on filedocumented in this encounter Care Teams Psychologist Engineering Relationship Specialty Start Date End Date Celia Carson PA-C PCP - General 12/04/20 documented as of this encounter
--- OUTSIDE RECORDS SUMMARY | 2025-03-22 01:17 | XMS_ITS | Clinical Summary ---
Author Organization [facility] Address [address] [place] [address] Care Team Providers Care Instructional Leader Name Role Phone Celia Carson PA-C Primary Care Provider + Source Comments [facility],non-owned Affiliates and Associated Physician Practices is amultiple site organization consisting of ambulatory clinics and hospital sitesin [place], [place], [place] and [place]. This disclosure is being madepursuant to the Care Everywhere program and may not contain all information available regarding this patient. Last updated 18.[facility] Allergies Active Allergy Reactions Criticality Noted [...] unspecified whether complicated, unspecified whether persistent (HCC) Polacca 2 (two) sprays into each nostril once [...] Comments Blood Pressure 140/84 07/26/2020 10:47 AM TELETYPIST Pulse 106 05/28/2020 11:11 AM TELETYPIST Temperature 36.1 C (97 F) 07/26/2020 10:47 AM TELETYPIST Respiratory Rate 20 04/19/2020 11:35 AM CDT Oxygen Saturation 99% 07/26/2020 10:47 AM TELETYPIST Inhaled Oxygen Concentration - - Weight 145.2 kg (320 lb) 07/26/2020 10:47 AM TELETYPIST Height 160 cm (5' 3) 07/26/2020 10:47 AM TELETYPIST Body Mass Index 56.69 07/26/2020 10:47 AM TELETYPIST Plan of Treatment Health Maintenance Due Date [...] 05/02/2019 ZOSTER VACCINE (1 of 2) 01/14/2022 LIPID TESTING 05/30/2024 05/30/2019, 06/08/2018 DEPRESSION SCREENING 07/05/2024 COVID-19 VACCINE ( season) 2025 11/26/2020, 11/07/2020 INFLUENZA VACCINE (#1) 2025 , 03/29/2020, 03/30/2019, [...] Comments LIPID PROFILE Routine 05/30/2019 2:35 PM TELETYPIST Class 3 severe obesity with serious comorbidity and body mass index (BMI) of 50.0 to 59.9 in adult, unspecified obesity type MAMMO BILAT SCREENING Routine 05/02/2019 2:42 PM CDT Healthcare maintenance from Last 3 Months or Most Recently Relevant to Health Maintenance Results * LIPID PROFILE (05/30/2019 2:35 PM TELETYPIST) Cholesterol Total 141 <200 mg/dL 05/30/2019 3:21 PM [facility] HDL 58 >40 mg/dL 05/30/2019 3:21 PM [facility] Comment: ATP III Classification of HDL Cholesterol: <40 mg/dL: Considered a major risk factor. >60 mg/dL: Considered a negative risk factor. LDL Calculated 72 <100 mg/dL 05/30/2019 3:21 PM [facility] Comment: ATP III Classification of LDL Cholesterol: <100 mg/dL: Optimal 100 - 129 mg/dL: Near Optimal/Above Optimal 130 - 159 mg/dL: Borderline High 160 - 189 mg/dL: High >190 mg/dL: Very High Triglycerides 53 <150 mg/dL 05/30/2019 3:21 PM [facility] Comment: ATP III Classification of Triglycerides: <150 mg/dL: Normal 150 - 199 mg/dL: Borderline High 200 - 400 mg/dL: High >500 mg/dL: Very High Blood BLOOD SPECIMEN / Unknown Lab Venipuncture / Unknown 05/30/2019 2:35 PM TELETYPIST 05/30/2019 2:56 PM TELETYPIST Doreen Mae APRNBUSINESS PROJECT ANALYST LAB - CHEMISTRY ORDERABL ES Final Result [address] [phone] * MAMMO BILAT SCREENING (05/02/2019 2:42 PM CDT) Anatomical Region Laterality Modality Breast Bilateral Mammography 05/24/2019 10:3 5 AM TELETYPIST Impressions 05/24/2019 10:39 AM TELETYPIST IMPRESSION: No mammographic evidence of malignancy. ASSESSMENT: BI-RADS Category 1: Negative mammogram. RECOMMENDATION: Bilateral screening mammogram in one year. This report was electronically signed by URSULA DOZIER M.D. on 05/24/2019 10:39 AM . Narrative 05/24/2019 10:39 AM TELETYPIST SCREENING MAMMOGRAM DATE: 05/02/2019 COMPARISON: Prior mammograms just received from [place] dated 01/25/2017 and 12/10/2010. 2017 report not [...] Recently Relevant to Health Maintenance Insurance [facility] Care Teams Instructional Leader Relationship Specialty Start Date End Date Celia Carson PA-C PCP - General 12/04/20
--- OUTSIDE RECORDS SUMMARY | 2025-03-22 01:17 | XMS_ITS | Clinical Summary ---
Author Organization [facility] [address] [facility] Address [address] [place] [address] Care Team Providers Care Appeals Writer Name Role Phone Marilyn Augustin NP Primary Care Provider [phone] Allergies Active Allergy Reactions Criticality Noted Date Comments Nickel Swelling,Itching,Unknown Medium 03/29/2020 Medications blood pressure kit-extra large kitIndications:E ssential hypertension 1 each daily 1 kit 06/16/20 [...] 06/08/20 22 Active tretinoin (RETIN-A) 0.01 % gelIndications:A cne, unspecified acne type APPLY TO AFFECTED AREA AT NIGHT 45 g 2 08/05/19 23 Active levalbuterol (XOPENEX) 1.25 mg/3 mL nebulizer solutionIndicati ons:Severe persistent asthma, unspecified whether complicated (HCC) Take 3 mL (1.25 mg total) by nebulization every 6 (six) hours as needed for wheezing or shortness of breath 180 mL 3 10/01/19 23 Active Spiriva with HandiHaler 18 mcg per inhalation capsuleIndicatio ns:Severe persistent asthma, uncomplicated (HCC) Place 1 puff (1 capsule total) into inhaler and inhale daily 30 capsule 10/24/19 23 Active mupirocin (BACTROBAN) 2 % ointment 10/23/19 23 Active Antacid Regular Strength 200-200-20 mg/5 mL suspension 11/06/19 23 Active amLODIPine (NORVASC) 5 mg tabletIndication s:Hypertension, essential TAKE 1 TABLET(5 MG) BY MOUTH DAILY 90 tablet 1 05/31/20 23 Active fluticasone propion-salmeter oL (ADVAIR HFA) 230-21 mcg/actuation inhaler Inhale 2 puffs 2 (two) times a day Rinse mouth with water after use. Do not swallow. Active baclofen (LIORESAL) 10 mg tabletIndication s:Chronic bilateral low back pain with bilateral sciatica TAKE 1 TABLET(10 MG) BY MOUTH THREE TIMES DAILY 90 tablet 08/09/19 24 Active cetirizine (ZyrTEC) 10 mg tablet Take 1 tablet (10 mg total) by mouth daily 90 tablet 1 08/11/19 24 Active meclizine (ANTIVERT) 12.5 mg tabletIndication s:Dizziness Take 1 tablet (12.5 mg total) by mouth 3 (three) times a day as needed for dizziness 90 tablet 08/19/19 24 Active Tezspire 210 mg/1.91 mL (110 mg/mL) pen injector INJECT 210MG SUBCUTANEOUSLY EVERY 4 WEEKS 1.91 mL 08/31/19 24 Active albuterol 2.5 mg /3 mL (0.083 %) nebulizer solutionIndicati ons:Asthma, unspecified asthma severity, unspecified whether complicated, unspecified [...] 12/07/19 24 Active montelukast (SINGULAIR) 10 mg tabletIndication s:Seasonal allergies Take 1 tablet (10 mg total) by mouth daily 30 tablet 1 05/02/20 24 Active omeprazole (PriLOSEC) 40 mg capsuleIndicatio ns:Gastroesophag eal reflux disease without esophagitis Take 1 capsule (40 mg total) by mouth daily 90 capsule 1 06/12/20 24 Active amitriptyline (ELAVIL) 25 mg tablet TAKE 1 TABLET BY MOUTH ONCE NIGHTLY 100 tablet 09/10/19 25 Active fluticasone propionate (FLONASE) 50 mcg/actuation nasal sprayIndications :Seasonal allergies SPRAY 2 SPRAYS INTO EACH NOSTRIL EVERY DAY 16 mL 1 10/10/19 25 Active torsemide (DEMADEX) 20 mg tabletIndication s:Localized edema TAKE 1 TABLET BY MOUTH EVERY DAY 90 tablet 1 12/09/[address] (CYMBALTA) 60 mg capsule Take 1 capsule (60 mg total) by mouth daily 90 capsule 01/10/20 25 Active metroNIDAZOLE (METROGEL) 0.75 % gelIndications:A cne Rosacea Apply twice daily to rosacea 45 g 1 01/11/20 25 026 Active ferrous sulfate 325 mg (65 mg of elemental iron) tablet Take 1 tablet (65 mg of elemental iron total) by mouth daily with breakfast 90 tablet 1 03/13/20 25 Active ferrous sulfate 325 mg (65 mg of elemental iron) tablet Take 1 tablet (65 mg of elemental iron total) by mouth daily with breakfast 90 tablet 1 08/11/19 24 025 Discontin ued(Reord er) Active Problems Problem Noted Date Diagnosed Date Seasonal allergies 05/02/2024 Acute bilateral low back pain without sciatica 0 08/11/2023 Chronic pain syndrome 08/11/2023 Overview (08/11/2023): Continue Cymbalta 90 mg daily as directed Chronic bilateral low back pain with bilateral s ciatica 06/09/2023 Assessment & Plan (06/09/2023 9:42 AM BLAST FURNACE TENDER): This is a significant, separately identifiable problem [...] 5:30 PM CDT): She has appt with global upstream marketing manager pending that she will keep Trigger [...] 8:21 PM CDT): Has pending referral to global upstream marketing manager that she will keep Will evaluate [...] 08/01/2021 Assessment & Plan (08/01/2021 9:59 AM BLAST FURNACE TENDER): Resume prn torsemide. We discussed if using routinely will need bun/cr and K levels drawn in the next 3-4w. She anticipates 1-2x/week but will let us know if increasing to daily. Leg pain, bilateral 08/01/2021 Assessment & Plan (08/01/2021 9:59 AM BLAST FURNACE TENDER): Will evaluate further with US of bilateral legs Elevated antinuclear antibody (RODRIGO) level 2020 Assessment & Plan (10/09/2021 12:09 PM CDT): Will restart cymbalta We reviewed autoimmune labs, will refer to rheumatology Assessment & Plan (08/01/2021 9:57 AM BLAST FURNACE TENDER): Has pending lab work for Dr. Bunch that she will complete She reports when she called her insurance she was told that there might be a provider in network for rheumatology in [facility] - will try a different location. Assessment & Plan (06/20/2021 11:43 AM BLAST FURNACE TENDER): We reviewed recent labs Will refer to rheum for further evaluation and treatment Pulmonary artery hypertension 06/03/2021 Assessment & Plan (08/01/2021 9:56 AM BLAST FURNACE TENDER): Continue care with pulmonology Advised her to reschedule with cardiology Assessment & Plan (06/20/2021 11:43 AM BLAST FURNACE TENDER): Continue with hctz daily Assessment & Plan (06/03/2021 7:01 PM BLAST FURNACE TENDER): Advised attempts at bp control Will refer to cv for further evaluation and treatment Chronic neck pain 06/03/2021 Assessment & Plan (06/20/2021 11:43 AM BLAST FURNACE TENDER): Will refer to closer orthopedist for her commute Assessment & Plan (06/03/2021 7:00 PM BLAST FURNACE TENDER): Advised referral to specialist, will help her arrange Cervical radiculopathy 06/03/2021 Assessment & Plan (06/03/2021 7:00 PM BLAST FURNACE TENDER): Advised referral, will help her arrange Need [...] provided. Assessment & Plan (06/09/2023 9:18 AM BLAST FURNACE TENDER): Discussed the patient's BMI. The BMI is [...] provided. Assessment & Plan (08/01/2021 9:57 AM BLAST FURNACE TENDER): Obesity is unchanged. Discussed the patient's BMI. The BMI is above average. BMI management plan is completed. BMI Follow-up includes: nutrition counseling, exercise counseling and education provided. Assessment & Plan (06/20/2021 11:43 AM BLAST FURNACE TENDER): Obesity is unchanged. Discussed the patient's BMI. [...] 5:31 PM CDT): We reviewed notes from urology physician. She is going to call her current oxygen company and order a current supply as she is not certain she can walk down the hallway in the hospital for her 6min walk. She will communicate with the urology physician regarding these concerns. Assessment & Plan (01/01/2022 6:43 PM CDT): Continue with oxygen, she reports that she has refills at home. Assessment & Plan (12/03/2021 8:20 PM CDT): Continue care per pulmonology, refill meds as needed Assessment & Plan (10/09/2021 12:08 PM CDT): Continue with care per pulmonology Continue with bpap Assessment & Plan (08/01/2021 9:57 AM BLAST FURNACE TENDER): Continue with care per Dr. Bunch Assessment & Plan (06/03/2021 7:00 PM BLAST FURNACE TENDER): Continue with care per pulm Assessment & Plan (05/01/2021 11:39 AM CDT): Continue with care per urology physician Has pending sleep eval that she will keep rf meds as needed Assessment & Plan (09/25/2020 3:07 PM CDT): Retrieve records from urology physician, continue care same at this time. Essential hypertension 09/25/2020 Assessment & Plan (06/03/2021 6:58 PM BLAST FURNACE TENDER): Add daily hctz Discontinue inderal Advised monitoring [...] 09/27/2018 Assessment & Plan (06/20/2021 11:44 AM BLAST FURNACE TENDER): Will refer to closer orthopedist for her [...] provided. Assessment & Plan (08/11/2023 8:47 AM BLAST FURNACE TENDER): Discussed the patient's BMI. The BMI is [...] 09/08/2021 Assessment & Plan (08/01/2021 9:58 AM BLAST FURNACE TENDER): Due for screening and wants to see global upstream marketing manager (her previous MD has left the area). Will refer to Dr. Barreto for further assistance. Mare, right 06/20/2021 01/19/2022 Assessment & Plan (06/20/2021 11:43 AM BLAST FURNACE TENDER): Will start on doxycycline Morbid obesity 06/20/2021 01/19/2022 Assessment & Plan (08/01/2021 9:57 AM BLAST FURNACE TENDER): Obesity is unchanged. Discussed the patient's BMI. The BMI is above average. BMI management plan is completed. BMI Follow-up includes: nutrition counseling, exercise counseling and education provided. Assessment & Plan (06/20/2021 11:43 AM BLAST FURNACE TENDER): Obesity is unchanged. Discussed the patient's BMI. [...] worsening. Assessment & Plan (06/20/2021 11:44 AM BLAST FURNACE TENDER): Advised increased fluids, rest F/u in 1w if not improving, sooner if worsening Assessment & Plan (01/13/2021 9:22 AM CDT): She will continue with her nose spray per director chemistry She will hold the mdp and not [...] provided. Assessment & Plan (06/03/2021 7:00 PM BLAST FURNACE TENDER): Obesity is unchanged. Discussed the patient's BMI. The BMI is above average. BMI management plan is completed. BMI Follow-up includes: nutrition counseling, exercise counseling and education provided. Assessment & Plan (01/13/2021 9:22 AM CDT): She was advised weight loss. She was offered referral to [facility] bariatrics and declines at this time. Assessment & Plan (12/16/2020 9:48 AM CDT): Obesity is unchanged. Discussed the patient's BMI. The BMI is above average. BMI management plan is completed. BMI Follow-up includes: nutrition counseling, exercise counseling and education provided. Encounters Date Type Department Care Team Description 03/12/[address] [place] [address] Marilyn Augustin NP Med Refill 03/09/2025 Orders Only [address] [place] [address] Marilyn Augustin NP Anemia, unspecified type (Primary Dx) 03/09/[address] [place] [address] Marilyn Augustin NP Referral Request 01/10/[address] [place] [address] Marilyn Augustin, DESIGNER AND PATTERNMAKER 01/09/[address] [place] [address] Marilyn Augustin, DESIGNER AND PATTERNMAKER Med Refill 01/09/[address] [place] [address] Marilyn Augustin, DESIGNER AND PATTERNMAKER Med Refill from Last 3 Months Immunizations [...] on file Legal Sex Female 1:37 AM BLAST FURNACE TENDER Gender Identity Not on file Sexual Orientation [...] CDT Respiratory Rate 16 06/09/2023 9:13 AM BLAST FURNACE TENDER Oxygen Saturation 99% 11/01/2024 7:03 AM CDT [...] 2 - PCV) 11/06/2022 11/06/2021 Covid-19 Vaccine (6 - 2024-2 6 season) 2025 11/28/2020, 11/26/2020, 11/26/2020, Additional history exists Influenza [...] * Folate (12/28/2024 9:01 AM CDT) Pathologist [facility] Folate, Serum >24.0 ng/mL [facility] Comment: Reference Range Low: <3.4 Borderline: 3.4-5.4 Normal: >5.4 Blood 12/28/2024 9:01 AM CDT 12/28/2024 9:01 AM CDT us Marilyn Augustin DESIGNER AND PATTERNMAKER LAB BLOOD ORDERABLES Final Re sult [facility] [address] [facility] [place] [phone] * (ABNORMAL) CBC with auto differential (12/28/2024 8:58 AM CDT) [facility] WBC 5.0 3.8 - 10.8 Thousand/u L [facility] RBC, POC 5.20(H) 3.80 - 5.10 Million/uL [...] 100 15 - 500 cells/uL [facility] Basophils, abs 0 0 - 200 cells/uL [facility] Neutrophils 62 % [facility] Lymphocyte pct 24 % [facility] Monocytes 12 % [facility] Eosinophils 2 % [facility] Basophils 0 % [facility] Comment [facility] Comment: The smear has been manually reviewed and the manual differential has been reported. Anisocytosis 2 + Microcytosis 2 + Ovalocytes 1 + Review of the peripheral smear reveals adequate numbers of platelets. Blood 12/28/2024 8:58 AM CDT 12/28/2024 8:59 AM CDT Narrative [facility] - 12/29/2024 7:46 AM CDT FASTING:YES FASTING: YES Marilyn Augustin DESIGNER AND PATTERNMAKER LAB BLOOD ORDERABLES Final Re sult [facility] [address] [place] [address] * Vitamin D 25 hydroxy (12/28/2024 8:58 AM CDT) Vitamin D 25-OH 52 30 - 100 ng/mL [facility] Comment: Vitamin D Status 25-OH Vitamin D: Deficiency: <20 ng/mL Insufficiency: 20 - 29 ng/mL Optimal: > or = 30 ng/mL For 25-OH Vitamin D testing on patients on D2-supplementation and patients for whom quantitation of D2 and D3 fractions is required, the [facility]TM) 25-OH VIT D, (D2,D3), LC/MS/MS is recommended: order code 09688 (patients >2yrs). See Note 1 Note 1 For additional information, please refer to http://education.[facility]/faq/UVN395 (This link is being provided for informational/ educational purposes only.) Blood 12/28/2024 8:58 AM CDT 12/28/2024 8:59 AM CDT Narrative [facility] - 12/29/2024 7:46 AM CDT FASTING:YES FASTING: YES Marilyn Augustin DESIGNER AND PATTERNMAKER LAB BLOOD ORDERABLES Final Re sult Performing Organization Address [facility] Co de Phone Number [facility] [address] [place] [address] * TSH (12/28/2024 8:58 AM CDT) [facility] TSH 2.52 mIU/L [facility] Comment: Reference Range > or = 20 Years 0.40-4.50 Ranges First trimester 0.26-2.66 Second trimester 0.55-2.73 Third trimester 0.43-2.91 Blood 12/28/2024 8:58 AM CDT 12/28/2024 8:59 AM CDT Narrative [facility] - 12/29/2024 7:46 AM CDT FASTING:YES FASTING: YES Marilyn Augustin DESIGNER AND PATTERNMAKER LAB BLOOD ORDERABLES Final Re sult Performing Organization Address [facility] Co de Phone Number [facility] [address] [place] [address] * Vitamin B12 (12/28/2024 8:58 AM CDT) [facility] Vitamin B12 423 200 - 1,100 pg/mL [facility] Blood 12/28/2024 8:58 AM CDT 12/28/2024 8:59 AM CDT Narrative [facility] - 12/29/2024 7:46 AM CDT FASTING:YES FASTING: YES Marilyn Augustin DESIGNER AND PATTERNMAKER LAB BLOOD ORDERABLES Final Re sult Performing Organization Address [facility] Co de Phone Number [facility] [address] [facility] [place] [address] * Lipid panel (12/28/2024 8:58 AM CDT) [facility] Cholesterol 148 <200 mg/dL [facility] HDL 62 > OR = 50 mg/dL [facility] Triglycerides 59 <150 mg/dL [facility] LDL 72 mg/dL (calc) [facility] Comment: Reference range: <100 Desirable range <100 mg/dL for primary prevention; <70 mg/dL for patients with CHD or diabetic patients with > or = 2 CHD risk factors. LDL-C is now calculated using the Rhoda calculation, which is a validated novel method providing better accuracy than the Friedewald equation in the estimation of LDL-C. Amrik SS et al. RADHA. 2013;310(05): 9621-9796 (http://education.[facility]/faq/QDP201) Chol/HDL ratio 2.4 <5.0 (calc) [facility] Non-HDL, (LDL+VLDL) 86 <130 mg/dL (calc) [facility] Comment: For patients with diabetes plus 1 major ASCVD risk factor, treating to a non-HDL-C goal of <100 mg/dL (LDL-C of <70 mg/dL) is considered a therapeutic option. Blood 12/28/2024 8:58 AM CDT 12/28/2024 8:59 AM CDT Narrative [facility] - 12/29/2024 7:46 AM CDT FASTING:YES FASTING: YES Marilyn Augustin DESIGNER AND PATTERNMAKER LAB BLOOD ORDERABLES Final Re sult [facility] [address] [place] [address] * Comprehensive metabolic panel (12/28/2024 8:58 AM CDT) [facility] Glucose 95 65 - 99 mg/dL [facility] Comment: Fasting reference interval BUN 14 7 - 25 mg/dL [facility] Creatinine 0.72 0.50 - 1.03 mg/dL [facility] eGFR 101 > OR = 60 mL/min/1.7 3m2 [facility] BUN/creat ratio SEE NOTE: 6 (calc) [facility] Comment: Not Reported: BUN and Creatinine are within reference range. Sodium 136 135 - 146 mmol/L [facility] Potassium, pl 3.9 3.5 - 5.3 mmol/L [facility] Chloride 99 98 - 110 mmol/L [facility] CO2 28 20 - 32 mmol/L [facility] Calcium 8.9 8.6 - 10.4 mg/dL [facility] Protein, sr 7.6 6.1 - 8.1 g/dL [facility] Albumin 4.1 3.6 - 5.1 g/dL [facility] GLOBULIN 3.5 1.9 - 3.7 g/dL (calc) [facility] Alb/glob ratio 1.2 1.0 - 2.5 (calc) [facility] Bilirubin, total 0.6 0.2 - 1.2 mg/dL [facility] Alk phos 133 37 - 153 U/L [facility] AST 17 10 - 35 U/L [facility] ALT (SGPT) 12 6 - 29 U/L [facility] Blood 12/28/2024 8:58 AM CDT 12/28/2024 8:59 AM CDT Narrative [facility] - 12/29/2024 7:46 AM CDT FASTING:YES FASTING: YES Marilyn Aguustin NP LAB BLOOD ORDERABLES Final Re sult [facility] [address] [place] [address] * Hepatitis panel, acute (01/20/2022 9:29 AM [...] revised on 2019. HepBsAg Nonreactive Nonreactive [facility]OM[facility] KENTRELL Blood 01/20/2022 9:29 AM CDT 01/20/2022 7:16 PM CDT Christy Newman NP LAB MICROBIOLOGY - GENERAL ORDER HERVE Final Result NAOMIE [address] [facility] Department [place] [address] * HM MAMMOGRAPHY (10/10/2021) Historical Provider HEALTH MAINTENANCE Final Result from Last 3 Months or Most Recently Relevant to Health Maintenance Insurance [id number] ADVANTAGE [facility] Address: [facility] [address] [place] [address] [facility] MEDICARE ADVANTAGE Care Teams Appeals Writer Relationship Specialty Start Date End Date Marilyn Augustin NP [address] [place] [id number] PCP - General Internal Medicine 11/05/22
--- OUTSIDE RECORDS SUMMARY | 2025-03-22 01:17 | XMS_ITS | Encounter Summary ---
Author Organization [facility] Address [facility] [facility] [place] [address] Care Team Providers Care Card Decorator Name Role Phone Doreen Mae APRN-PR INTERNSHIP Primary Care Provider + Celia Carson PA-C Primary Care Provider + Reason for Visit * Reason Onset Date Comments MEDICATION REFILL 02/27/2019 MEDICATION REFILL 03/28/2019 Encounter Details Date Type Department Care Team (Late st Contact Info) Description 02/27/2019 Refill [facility] General Internal Medicine [address] [facility] [address] [place] [address] Doreen Mae, TALKBACK HOST-PR INTERNSHIP [address] OF [facility] [place] [address] MEDICATION REFILL; MEDICATION REFILL Social History Tobacco [...] leg documented in this encounter Care Teams Card Decorator Relationship Specialty Start Date End Date Doreen Mae, TALKBACK HOST-PR INTERNSHIP [address] [place] [address] PCP - General Nurse Practitioner 09/27/18 12/03/20 Celia Carson PA-C [address] [place] [address] PCP - General 12/04/20 documented as of this encounter
[2025-03-22 07:26] VITALS: BP 146/64; PULSE 89; RESP 16; TEMP 37; O2SAT 94; BMI 63.7
[2025-03-22] MEDS: LACTATED RINGERS 1,000 ML 150 ML IV CONT (07:37)
[2025-03-22] MEDS: SIMETHICONE ORAL SUSPENSION 20 MG/0.3 ML 30 ML BOTTLE 1.8 ML PO (07:38)
--- NOTE | 2025-03-22 07:41 | WPDANESEPPF ---
Anes - Initial Pre Proc Eval Procedure: Operation Date: 03/22/25 08:30 Proposed Procedures p Esophagogastroduodenoscopy & Colonoscopy - German Avila MD Date/Time: 03/22/25 07:41 Surgeon: German Avila MD Pre Op Diagnosis: Hemorrhage of anus and rectum Patient Data Age: 55 Gender: F Height: 1.57 m Weight: 158 kg Last Vital Signs Temp 37.0 C 03/22/25 07:26 Pulse 89 03/22/25 07:26 Resp 16 03/22/25 07:26 BP 146/64 H 03/22/25 07:26 Pulse Ox 94 03/22/25 07:26 O2 Del Method Room Air 03/22/25 07:26 Allergies Allergy/AdvReac Type Severity Reaction Status Date / Time nickel Allergy Intermediate Swelling Verified 03/22/25 07:22 METALS Allergy Intermediate Rash Uncoded 02/24/25 09:06 Home Medications ?Medication ?Instructions ?Recorded ?Confirmed ?Type Home Oxygen 04/01/22 03/14/25 History Walkabout Mini Oxygen System 04/01/22 03/14/25 History torsemide 20 mg tablet 20 mg PO QAM #30 tabs 10/22/22 03/22/25 Rx ferrous sulfate 325 mg (65 mg 325 mg PO Q48H 01/27/23 03/22/25 History iron) tablet,delayed release tezepelumab-ekko 210 mg/1.91 mL 210 mg subcut MONTHLY 03/13/23 03/14/25 History (110 mg/mL) subcutaneous pen injector (Tezspire) amitriptyline 25 mg tablet 25 mg PO DAILY PRN stress 04/21/23 03/22/25 History amlodipine 5 mg tablet 5 mg PO DAILY 04/21/23 03/22/25 History fluticasone propionate 50 1 spray intranasal Q12H 04/21/23 03/22/25 History mcg/actuation nasal spray,suspension duloxetine 60 mg capsule,delayed 90 mg PO DAILY 07/29/23 03/22/25 History release albuterol sulfate 2.5 mg/3 mL 2.5 mg (3 mL) inhalation Q6-8H PRN 05/03/24 03/14/25 Rx (0.083 %) solution for nebulization shortness of breath or wheezing #90 mL albuterol sulfate 90 mcg/actuation 2 puff inhalation QID PRN 05/03/24 03/14/25 Rx aerosol inhaler shortness of breath or wheezing #8 grams tiotropium bromide 2.5 2 puff inhalation DAILY #4 grams 05/03/24 03/22/25 Rx mcg/actuation mist for inhalation (Spiriva Respimat) fluticasone fur. 200 mcg-umeclid 1 inh inhalation DAILY 09/27/24 03/22/25 History 62.5 mcg-vilant 25 mcg inhalat.powder (Trelegy Ellipta) hydrocortisone acetate 25 mg 25 mg RECTAL BID #20 ea 09/27/24 03/14/25 Rx rectal suppository (Anusol-HC) fluticasone propionate 230 See Rx Instructions .Route 11/08/24 03/14/25 Rx mcg-salmeterol 21 mcg/actuation .COMPLEX #12 grams HFA inhaler (Advair HFA) montelukast 10 mg tablet 10 mg PO DAILY #30 tabs 11/08/24 03/14/25 Rx (Singulair) omeprazole 20 mg capsule,delayed See Rx Instructions .Route 11/08/24 03/22/25 Rx release .COMPLEX #180 caps Patient hx anesthesia problems: none Family hx anesthesia problems: none Results Review: All pre-operative results and documents have been reviewed as part of the pre-operative evaluation. [facility] Past Medical History Medical History Iron deficiency anemia MRSA (methicillin resistant Staphylococcus aureus) carrier COVID-19 ruled out by laboratory testing Morbid obesity Obstructive sleep apnea Patient reports that her most recent sleep study showed no indication for CPAP. Hypertension Anxiety Chronic sinusitis Gastroesophageal reflux disease Fibromyalgia Tendonitis Asthma Surgical History Surgical History H/O: hysterectomy History of sinus surgery History of section X1 History of endometrial ablation History of tubal ligation (~2009) Anterior ethmoid and maxillary antrostomy. History of bilateral carpal tunnel release x2 Family History Family History Father Hypertension Mother Alive and well Grandparent Breast cancer Social History Social History Social History: The patient tells me that she is currently unemployed. She has 1 daughter. She also has a significant get other. She tells me that she has never smoked. Surrogate decision maker: Bisi Sanderson, mother. Code status: Full code. Smoking status: Unknown if ever smoked Second hand tobacco smoke exposure: No Alcohol intake: unknown Substance use: unknown Substance use type: does not use Lack of Transportation: No Lack of Food: Never True Current Housing: I Have Housing Concerned About Future Housing: No Difficulty Paying Gas/Electric Bills: No Difficulty Paying for Meds: No Currently Unemployed: No Education: High School Diploma/GED Difficulty w/ Childcare or Family Care: No Living arrangements: with family Additional living arrangements comments: Lives in [place] with a friend. 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 Gender identity (if verbalized by the patient): Female Sexual Orientation (if Verbalized by the Patient): Straight or Heterosexual Spiritual care concerns: No Anes - Eval Final PreProcedure Day of Procedure 03/22/25 07:41 Patient weight: morbidly obese Heart: regular rate and rhythm Lungs: clear to auscultation Airway: Mallampati scale class II Neurological: alert and oriented Last oral intake: >/= 8 hours ASA classification: III Emergent: no Anesthetic plan: proceed Anesthesia type and monitoring: general GIVS and standard monitoring Results Review: All pre-operative results and documents have been reviewed as part of the pre-operative evaluation. Informed Consent: The patient's anesthetic plan and its attendant risks and benefits were discussed with the patient/family/POA. Questions were solicited and answers provided to the satisfaction of the patient/family/POA.
--- NOTE | 2025-03-22 08:26 | PM.IMHP ---
H&P: HPI History of Present Illness Date/Time: 03/22/25 08:26 Chief Complaint: GERD-iron deficiency anemia Narrative: the patient has been referred for EGD and colonoscopy. Her last colonoscopy was in 2022 finding a 4 mm serrated adenoma in the cecum. She never had an EGD. However she complains of persistent heartburn partially relieved by PPIs and intermittent dysphagia to solid foods. Review of Systems Review of Systems: All systems reviewed & are unremarkable except as noted in HPI and below PMFSH Past Medical History Medical History Iron deficiency anemia MRSA (methicillin resistant Staphylococcus aureus) carrier COVID-19 ruled out by laboratory testing Morbid obesity Obstructive sleep apnea Patient reports that her most recent sleep study showed no indication for CPAP. Hypertension Anxiety Chronic sinusitis Gastroesophageal reflux disease Fibromyalgia Tendonitis Asthma Surgical History Surgical History H/O: hysterectomy History of sinus surgery History of section X1 History of endometrial ablation History of tubal ligation (~2009) Anterior ethmoid and maxillary antrostomy. History of bilateral carpal tunnel release x2 Family History Family History Father Hypertension Mother Alive and well Grandparent Breast cancer Social History Social History Social History: The patient tells me that she is currently unemployed. She has 1 daughter. She also has a significant get other. She tells me that she has never smoked. Surrogate decision maker: Bisi Sanderson, mother. Code status: Full code. Smoking status: Unknown if ever smoked Second hand tobacco smoke exposure: No Alcohol intake: unknown Substance use: unknown Substance use type: does not use Lack of Transportation: No Lack of Food: Never True Current Housing: I Have Housing Concerned About Future Housing: No Difficulty Paying Gas/Electric Bills: No Difficulty Paying for Meds: No Currently Unemployed: No Education: High School Diploma/GED Difficulty w/ Childcare or Family Care: No Living arrangements: with family Additional living arrangements comments: Lives in [place] with a friend. 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 Gender identity (if verbalized by the patient): Female Sexual Orientation (if Verbalized by the Patient): Straight or Heterosexual Spiritual care concerns: No Meds Home Medications and Allergies Home Medications ?Medication ?Instructions ?Recorded ?Confirmed ?Type Home Oxygen 04/01/22 03/14/25 History Walkabout Mini Oxygen System 04/01/22 03/14/25 History torsemide 20 mg tablet 20 mg PO QAM #30 tabs 10/22/22 03/22/25 Rx ferrous sulfate 325 mg (65 mg 325 mg PO Q48H 01/27/23 03/22/25 History iron) tablet,delayed release tezepelumab-ekko 210 mg/1.91 mL 210 mg subcut MONTHLY 03/13/23 03/14/25 History (110 mg/mL) subcutaneous pen injector (Tezspire) amitriptyline 25 mg tablet 25 mg PO DAILY PRN stress 04/21/23 03/22/25 History amlodipine 5 mg tablet 5 mg PO DAILY 04/21/23 03/22/25 History fluticasone propionate 50 1 spray intranasal Q12H 04/21/23 03/22/25 History mcg/actuation nasal spray,suspension duloxetine 60 mg capsule,delayed 90 mg PO DAILY 07/29/23 03/22/25 History release albuterol sulfate 2.5 mg/3 mL 2.5 mg (3 mL) inhalation Q6-8H PRN 05/03/24 03/14/25 Rx (0.083 %) solution for nebulization shortness of breath or wheezing #90 mL albuterol sulfate 90 mcg/actuation 2 puff inhalation QID PRN 05/03/24 03/14/25 Rx aerosol inhaler shortness of breath or wheezing #8 grams tiotropium bromide 2.5 2 puff inhalation DAILY #4 grams 05/03/24 03/22/25 Rx mcg/actuation mist for inhalation (Spiriva Respimat) fluticasone fur. 200 mcg-umeclid 1 inh inhalation DAILY 09/27/24 03/22/25 History 62.5 mcg-vilant 25 mcg inhalat.powder (Trelegy Ellipta) hydrocortisone acetate 25 mg 25 mg RECTAL BID #20 ea 09/27/24 03/14/25 Rx rectal suppository (Anusol-HC) fluticasone propionate 230 See Rx Instructions .Route 11/08/24 03/14/25 Rx mcg-salmeterol 21 mcg/actuation .COMPLEX #12 grams HFA inhaler (Advair HFA) montelukast 10 mg tablet 10 mg PO DAILY #30 tabs 11/08/24 03/14/25 Rx (Singulair) omeprazole 20 mg capsule,delayed See Rx Instructions .Route 11/08/24 03/22/25 Rx release .COMPLEX #180 caps Allergies Allergy/AdvReac Type Severity Reaction Status Date / Time nickel Allergy Intermediate Swelling Verified 03/22/25 07:22 METALS Allergy Intermediate Rash Uncoded 02/24/25 09:06 Vital Signs Vital Signs - 24 hr 03/22/25 07:26 Temperature 98.6 F Pulse Rate 89 Respiratory Rate 16 Blood Pressure 146/64 H Pulse Oximetry 94 Oxygen Delivery Room Air Exam Const: General: cooperative and healthy appearing Resp: Effort & Inspection: normal respiratory effort and able to speak in complete sentences Auscultation: clear to auscultation bilaterally Cardio: Rate: regular rate Rhythm: regular rhythm GI: Inspection: normal to inspection GI Palp: No No hepatosplenomegaly present Auscultation: normal bowel sounds Rectal Exam: deferred Skin: General skin exam: normal color Psych: Appearance: grossly normal Mental Status: mental status grossly normal Assessment and Plan Assessment and plan (1) Gastroesophageal reflux disease: Qualifiers: Esophagitis presence: esophagitis presence not specified Qualified Code(s): K21.9 - Gastro-esophageal reflux disease without esophagitis Code(s): K21.9 - Gastro-esophageal reflux disease without esophagitis Status: Acute Assessment and Plan: The patient is deemed a good candidate for the procedure. Consent signed. Will proceed. (2) Anemia: Code(s): D64.9 - Anemia, unspecified Status: Acute
--- NOTE | 2025-03-22 08:47 | SUR.OPER ---
EGD TIME: , COLONOSCOPY TIME
--- NOTE | 2025-03-22 09:01 | S_PTH ---
PATIENT: Angie Leos LOC: [facility]#:[id number] AGE/SX: 55/F ROOM: RE03/22/[address]: German Avila MD : 1970 BED: DIS: 03/22/2025 SPEC #: [id number] RECD: 03/22/25 10:00 STATUS: WINNIE REQ #: [id number] ESTHER: 03/22/25 09:[address]: German Avila DEPT: [facility] Surgical RECD BY: Toya Ramos ENTERED: 03/22/25 10:01 SP TYPE: Surgical OTHR DR: Marilyn Augustin, CLINICAL QUALITY ASSURANCE ASSOCIATE Tissues: A - Esophageal Biopsy Procedures: Hematoxylin and Eosin Stain Gross and Microscopic Level 4
[2025-03-22 09:04] VITALS: BP 126/57; PULSE 100; RESP 22; O2SAT 100
[2025-03-22 09:14] VITALS: BP 115/55; PULSE 94; RESP 18; O2SAT 97
[2025-03-22 09:24] VITALS: BP 130/60; PULSE 87; RESP 18; O2SAT 98
== END 2025-03-22 09:31 | disposition home or self-care (01) ==
PROVIDERS: PCP Nurse Practitioner Family; Referring Provider Nurse Practitioner; Visit Provider Internal Medicine Gastroenterology
PROC: 0DJ08ZZ Inspection of Upper Intestinal Tract, Via Natural or Artificial Opening Endoscopic (ICD-10-PCS; CPT 45378; principal; 2025-03-22 08:30)
DX: D64.9 Anemia, unspecified (principal); K57.30 Diverticulosis of large intestine without perforation or abscess without bleeding; K64.8 Other hemorrhoids; K21.00 Gastro-esophageal reflux disease with esophagitis, without bleeding; Z86.0101 Personal history of adenomatous and serrated colon polyps
CPT/HCPCS: 45378; 43239; 88305; J2003; J2704; J7120

== ENCOUNTER 2025-04-08 22:00 | Emergency (ER) | payer MEDICARE, MEDICAID, SELFPAY ==
--- OUTSIDE RECORDS SUMMARY | 2010-05-13 10:15 | XMS_ITS | Continuity of Care Document ---
Author Organization [facility] Address [address] [place] [address] utive [facility] [address] [place] [address] Phone Care Team Providers Care Car Sweeper Name Role Phone Ayala OD, Dereje Unavailable Unavailable Procedures Procedure Date Eye Exam, New Patient Refraction Advance Directives Directive Yes / No Effective Date File Name No Information Encounters Encounter Description Practice Location Reason(s) For Visit Diagnoses Date Provider Providers Copied on Encounter [facility], [address] [place] [address] [address], [place], [place], [id number], [place] tel:[phone] SEC [facility] No Information 9-201 0 Ayala OD Dereje. [address] [facility] [place] , [address], [place], [address], [place]. tel:[phone] Family History Family Member Type Diagnosis Age At Onset No Information Payers Payer name Insurance type Covered constitution party ID Authoriza tion(s) Medicaid [facility]LY [facility] [id number] Social History Type Description Quantity Date Captured Comments Sex Female Smoking Status No Information Chief Complaint And Reason For Visit No Information Reason For Referral Reason For Referral No Information History Of Present Illness Encounter Date Complaint History Of Prese nt Illness No Information Functional Status Date Functional Assessmen t No Information Instructions Date Instruction Additional Infor mation No Information Assessments Type Assessment Date No Information Patient Care Teams Name Effective Dates (start - stop) Status Members No Information
--- NOTE | ~2025-04-08 | US_ITS ---
EXAMINATION: US venous doppler [facility], 04/09/2025 7:50 CDT HISTORY: r/o DVT; dimer mildly elevated COMPARISON: None Technique: Mayes-scale and color Doppler images were attempted of the lower saphenofemoral junction, common femoral vein,superficial femoral vein, proximal deep femoral vein, proximal deep femoral vein, popliteal vein and posterior tibial veins. Findings: Deep Venous System:Normal flow, augmentation and compressibility. No echogenic thrombus identified. Superficial Venous SystemNo superficial thrombophlebitis. Soft tissues: Soft tissues there is a probable left popliteal fossa Mullins's cyst 4.6 x 4 cm, outpatient MRI is suggested Impression: Negative for DVT. Reviewed, dictated and finalized at location P. Impression: Negative for DVT.
[2025-04-08 22:06] VITALS: BP 134/61; PULSE 107; RESP 23; TEMP 36.9; O2SAT 99
[2025-04-08 23:14] VITALS: BP 146/78; PULSE 106; RESP 18; O2SAT 99
[2025-04-09 00:36] VITALS: BP 155/83; PULSE 105; RESP 18; O2SAT 97
--- OUTSIDE RECORDS SUMMARY | 2025-04-09 01:26 | XMS_ITS | Encounter Summary ---
Author Organization 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
--- OUTSIDE RECORDS SUMMARY | 2025-04-09 01:26 | XMS_ITS | Clinical Summary ---
Author Organization [facility] [address] [facility] Address [address] [place] [address] Care Team Providers Care Cabinetmaker Supervisor Name Role Phone Marilyn Augustin NP Primary Care Provider [phone] Allergies Active Allergy Reactions Criticality Noted Date [...] 06/09/2023 Assessment & Plan (06/09/2023 9:42 AM BLEND TECHNICIAN): This is a significant, separately identifiable problem [...] 5:30 PM CDT): She has appt with seed expert pending that she will keep Trigger ring [...] 8:21 PM CDT): Has pending referral to seed expert that she will keep Will evaluate further [...] 08/01/2021 Assessment & Plan (08/01/2021 9:59 AM BLEND TECHNICIAN): Resume prn torsemide. We discussed if using routinely will need bun/cr and K levels drawn in the next 3-4w. She anticipates 1-2x/week but will let us know if increasing to daily. Leg pain, bilateral 08/01/2021 Assessment & Plan (08/01/2021 9:59 AM BLEND TECHNICIAN): Will evaluate further with US of bilateral legs Elevated antinuclear antibody (RODRIGO) level 2020 Assessment & Plan (10/09/2021 12:09 PM CDT): Will restart cymbalta We reviewed autoimmune labs, will refer to rheumatology Assessment & Plan (08/01/2021 9:57 AM BLEND TECHNICIAN): Has pending lab work for Dr. Bunch that she will complete She reports when she called her insurance she was told that there might be a provider in network for rheumatology in [facility] - will try a different location. Assessment & Plan (06/20/2021 11:43 AM BLEND TECHNICIAN): We reviewed recent labs Will refer to rheum for further evaluation and treatment Pulmonary artery hypertension 06/03/2021 Assessment & Plan (08/01/2021 9:56 AM BLEND TECHNICIAN): Continue care with pulmonology Advised her to reschedule with cardiology Assessment & Plan (06/20/2021 11:43 AM BLEND TECHNICIAN): Continue with hctz daily Assessment & Plan (06/03/2021 7:01 PM BLEND TECHNICIAN): Advised attempts at bp control Will refer to cv for further evaluation and treatment Chronic neck pain 06/03/2021 Assessment & Plan (06/20/2021 11:43 AM BLEND TECHNICIAN): Will refer to closer orthopedist for her commute Assessment & Plan (06/03/2021 7:00 PM BLEND TECHNICIAN): Advised referral to specialist, will help her arrange Cervical radiculopathy 06/03/2021 Assessment & Plan (06/03/2021 7:00 PM BLEND TECHNICIAN): Advised referral, will help her arrange Need [...] provided. Assessment & Plan (06/09/2023 9:18 AM BLEND TECHNICIAN): Discussed the patient's BMI. The BMI is [...] provided. Assessment & Plan (08/01/2021 9:57 AM BLEND TECHNICIAN): Obesity is unchanged. Discussed the patient's BMI. The BMI is above average. BMI management plan is completed. BMI Follow-up includes: nutrition counseling, exercise counseling and education provided. Assessment & Plan (06/20/2021 11:43 AM BLEND TECHNICIAN): Obesity is unchanged. Discussed the patient's BMI. [...] 5:31 PM CDT): We reviewed notes from armored car driver. She is going to call her current oxygen company and order a current supply as she is not certain she can walk down the hallway in the hospital for her 6min walk. She will communicate with the armored car driver regarding these concerns. Assessment & Plan (01/01/2022 6:43 PM CDT): Continue with oxygen, she reports that she has refills at home. Assessment & Plan (12/03/2021 8:20 PM CDT): Continue care per pulmonology, refill meds as needed Assessment & Plan (10/09/2021 12:08 PM CDT): Continue with care per pulmonology Continue with bpap Assessment & Plan (08/01/2021 9:57 AM BLEND TECHNICIAN): Continue with care per Dr. Bunch Assessment & Plan (06/03/2021 7:00 PM BLEND TECHNICIAN): Continue with care per pulm Assessment & Plan (05/01/2021 11:39 AM CDT): Continue with care per armored car driver Has pending sleep eval that she will keep rf meds as needed Assessment & Plan (09/25/2020 3:07 PM CDT): Retrieve records from armored car driver, continue care same at this time. Essential hypertension 09/25/2020 Assessment & Plan (06/03/2021 6:58 PM BLEND TECHNICIAN): Add daily hctz Discontinue inderal Advised monitoring [...] 09/27/2018 Assessment & Plan (06/20/2021 11:44 AM BLEND TECHNICIAN): Will refer to closer orthopedist for her [...] provided. Assessment & Plan (08/11/2023 8:47 AM BLEND TECHNICIAN): Discussed the patient's BMI. The BMI is [...] 09/08/2021 Assessment & Plan (08/01/2021 9:58 AM BLEND TECHNICIAN): Due for screening and wants to see seed expert (her previous MD has left the area). Will refer to Dr. Barreto for further assistance. Mare, right 06/20/2021 01/19/2022 Assessment & Plan (06/20/2021 11:43 AM BLEND TECHNICIAN): Will start on doxycycline Morbid obesity 06/20/2021 01/19/2022 Assessment & Plan (08/01/2021 9:57 AM BLEND TECHNICIAN): Obesity is unchanged. Discussed the patient's BMI. The BMI is above average. BMI management plan is completed. BMI Follow-up includes: nutrition counseling, exercise counseling and education provided. Assessment & Plan (06/20/2021 11:43 AM BLEND TECHNICIAN): Obesity is unchanged. Discussed the patient's BMI. [...] worsening. Assessment & Plan (06/20/2021 11:44 AM BLEND TECHNICIAN): Advised increased fluids, rest F/u in 1w if not improving, sooner if worsening Assessment & Plan (01/13/2021 9:22 AM CDT): She will continue with her nose spray per dramatic critic She will hold the mdp and not [...] provided. Assessment & Plan (06/03/2021 7:00 PM BLEND TECHNICIAN): Obesity is unchanged. Discussed the patient's BMI. [...] Encounters Date Type Department Care Team Description 03/22/2025 Orders Only [facility] Health Information Management [address] [place] [id number] Marilyn Augustin NP 03/22/2025 Orders Only [facility] [address] [place] [phone] ProviderLamar MD 03/12/2025 Telephone [facility] [address] [place] [phone] Marilyn Augustin NP Med Refill 03/09/2025 Orders Only [address] [place] [phone] Marilyn Augustin, JOYCELYN Anemia, unspecified type (Primary Dx) 03/09/[address] [place] [phone] Marilyn Augustin, FINISHER [employer] Referral Request 01/10/[address] [place] [phone] Marilyn Augustin, FINISHER [employer] 01/09/[address] [place] [phone] Marilyn Augustin, FINISHER [employer] Med Refill 01/09/[address] [place] [phone] Marilyn Augustin, FINISHER [employer] Med Refill from Last 3 Months Immunizations [...] on file Legal Sex Female 1:37 AM BLEND TECHNICIAN Gender Identity Not on file Sexual Orientation [...] CDT Respiratory Rate 16 06/09/2023 9:13 AM BLEND TECHNICIAN Oxygen Saturation 99% 11/01/2024 7:03 AM CDT [...] or Tdap) 01/05/2026 01/06/2016 Colon Cancer Screening-Colonoscopy 03/22/20352024, 03/10/2023 Hepatitis C Screening Completed 01/20/2022 Procedures Procedure Name Priority Date/Time Associated Diagnosis Comments COLONOSCOPY Routine 03/22/2025 11:58 AM CDT GI - RESULT 03/22/2025 HEPATITIS PANEL, ACUTE Routine 01/20/2022 9:29 AM CDT Encounter for annual routine gynecological examination Screening for STD (sexually transmitted disease) MAMMOGRAPHY Routine 10/10/2021 from Last 3 Months or Most Recently Relevant to Health Maintenance Results * COLONOSCOPY (03/22/2025 11:58 AM CDT) Scribed Colonoscopy Normal Historical Provider HEALTH MAINTENANCE Edited Result - Final * GI - RESULT (03/22/2025) Anatomical Region Laterality Modality Other Marilyn Augustin NP Final Result * Hepatitis panel, acute (01/20/2022 9:29 AM CDT) Hep A IgM Nonreactive Nonreactive [facility] Comment: Interpretive Data: If Hep A IgM Ab is reported as Equivocal, a new sample should be drawn in two weeks for testing. Current interpretive data was last revised on 19. Hep B core IgM Nonreactive Nonreactive [facility] Comment: Interpretive Data If HepB Core IgM Ab is reported as Equivocal, a new sample should be drawn in two weeks for testing. Current interpretive data was last revised on 19. Hep C Ab Nonreactive Nonreactive [facility] Comment: Interpretive Data Nonreactive: Antibodies to HCV [...] last revised on 2019. HepBsAg Nonreactive Nonreactive [facility] Blood 01/20/2022 9:29 AM CDT 01/20/2022 7:16 PM CDT Christy Newman NP LAB MICROBIOLOGY - GENERAL ORDER HERVE Final Result [facility]OM[facility] [address] [facility] Department [place] [address] * HM MAMMOGRAPHY (10/10/2021) Historical Provider HEALTH MAINTENANCE Final Result from Last 3 Months or Most Recently Relevant to Health Maintenance Insurance [facility] MEDICARE [facility] Address: [address] [address] [place] [address] [facility] MEDICARE [facility] Address: [address] [address] [place] [address] Care Teams Cabinetmaker Supervisor Relationship Specialty Start Date End Date Marilyn Augustin NP [address] [facility] [address] [place] [address] PCP - General Internal Medicine 11/05/22
--- OUTSIDE RECORDS SUMMARY | 2025-04-09 01:27 | XMS_ITS | Encounter Summary ---
Author Organization [facility] Address [facility] [place] [address] Care Team Providers Care Marketing Services Specialist Name Role Phone Doreen Mae APRN-ROOFING CONTRACTOR Primary Care Provider + Celia Carson PA-C Primary Care Provider + Reason for Visit * Reason Onset Date Comments MEDICATION REFILL 02/27/2019 MEDICATION REFILL 03/28/2019 Encounter Details Date Type Department Care Team (Late st Contact Info) Description 02/27/2019 Refill [facility] General Internal Medicine [address] [facility] [address] [place] [address] Doreen Mae, ELECTRO OPTICAL ENGINEER-ROOFING CONTRACTOR [address] OF [facility] [place] [address] MEDICATION REFILL; MEDICATION REFILL Social History Tobacco [...] leg documented in this encounter Care Teams Marketing Services Specialist Relationship Specialty Start Date End Date Doreen Mae, ELECTRO OPTICAL ENGINEER-ROOFING CONTRACTOR [address] [place] [address] PCP - General Nurse Practitioner 09/27/18 12/03/20 Celia Carson PA-C [address] [place] [address] PCP - General 12/04/20 documented as of this encounter
--- OUTSIDE RECORDS SUMMARY | 2025-04-09 01:27 | XMS_ITS | Encounter Summary ---
Author Organization [facility] Address [facility]3 [facility] [place] [address] Care Team Providers Care Dressing Room Porter Name Role Phone Doreen Mae APRN-TRANSPORTATION AID Primary Care Provider + Celia Carson PA-C Primary Care Provider + Reason for Visit * Reason Onset Date Comments MEDICATION REFILL 02/20/2019 MEDICATION REFILL 02/27/2019 Encounter Details Date Type Department Care Team (Late st Contact Info) Description 02/20/2019 Refill [facility] General Internal Medicine [address] [facility] [address] [place] [address] Doreen Mae, INFECTION PREVENTIONIST-TRANSPORTATION AID [address] OF [facility] [place] [address] MEDICATION REFILL; MEDICATION REFILL Social History Tobacco [...] disorder documented in this encounter Care Teams Dressing Room Porter Relationship Specialty Start Date End Date Doreen Mae APRN-TRANSPORTATION AID [address] [place] [address] PCP - General Nurse Practitioner 09/27/18 12/03/20 Celia Carson PA-C [address] [place] [address] PCP - General 12/04/20 documented as of this encounter
--- OUTSIDE RECORDS SUMMARY | 2025-04-09 01:27 | XMS_ITS | Clinical Summary ---
Author Organization [facility] Address [address] [place] [address] Care Team Providers Care Parquet Floor Layer Name Role Phone Unavailable Primary Care Provider [...] - 2024-2 6 season) 2025 11/26/2020, 11/07/2020 Influenza Adult (#1) 2025 05/01/2021, 04/17/2015, 10/16/2014 DTaP, Tdap and Td Vaccines ( 2 [...]
--- OUTSIDE RECORDS SUMMARY | 2025-04-09 01:27 | XMS_ITS | Encounter Summary ---
Author Organization [facility] Address [facility]3 [facility] [place] [address] Care Team Providers Care Contracts Specialist Name Role Phone Doreen Mae APRN-BAG SORTER Primary Care Provider + Celia Carson PA-C Primary Care Provider + Encounter Details Date Type Department Care Team (Late st Contact Info) Description 03/29/2019 Telephone [facility] [address] [place], [place] [id number] Doreen Mae, ASSOCIATE-BAG SORTER [address] [place] [address] Social History Tobacco Use Types Packs/Day Years [...] beforeher appointment tomorrow. Patient Call Back number: [phone] documented in this encounter Plan of Treatment Not on file documented as of this encounter Visit Diagnoses Not on filedocumented in this encounter Care Teams Contracts Specialist Relationship Specialty Start Date End Date Doreen Mae APRN-CNP [address] [place] [address] PCP - General Nurse Practitioner 09/27/18 12/03/20 Celia Carson PA-C [address] [place] [address] PCP - General 12/04/20 documented as of this encounter
--- OUTSIDE RECORDS SUMMARY | 2025-04-09 01:27 | XMS_ITS | Encounter Summary ---
Author Organization [facility] Address [facility]3 [facility] [place] [address] Care Team Providers Care Offset Proof Press Operator Name Role Phone Doreen Mae APRN-FURNACE FIRER Primary Care Provider + Celia Carson PA-C Primary Care Provider + Reason for Visit * Reason Onset Date Comments Appointment 11/29/2018 Encounter Details Date Type Department Care Team (Late st Contact Info) Description 11/29/2018 Telephone [facility] General Internal Medicine [address] [facility] [address] [place] [address] Doreen Mae, BLOOD BANK TECHNOLOGIST-FURNACE FIRER [address] OF [facility] [place] [address] Appointment Social History Tobacco Use Types Packs/Day [...] voicemail to contact the scheduling department at [phone] Note: This is too soon to see me back. ?? Please schedule patient with SMELTER OPERATOR Christianne Leon Segura, or Chapis for later in the month, ideally around 12/22/18. To keep appointment with me 01/24/19, as well. * Telephone Encounter - Doreen Dsouza APRN-CNP - 12/01/2018 10:59 AM CDT This is too soon to see me back. Please schedule patient with SMELTER OPERATOR Christianne Leon Segura, or Chapis for later [...] will need to be seen by another SMELTER OPERATOR: Celia Avalos, Alexia Nation or Arti Leon or will need to be seen before I am out of the office. I do not need to see her monthly. However, if it is required for her weight loss surgery, she can be scheduled. ThanksDoreen APRN-CNP * Telephone Encounter - Zulema Schwartz - 11/29/2018 4:19 PM CDT Pt: Angie Sanchez#: [id number] Pt calling to verify her next appointment [...] on filedocumented in this encounter Care Teams Offset Proof Press Operator Relationship Specialty Start Date End Date Doreen Mae APRN-CNP [address] [place], [place] [id number] PCP - General Nurse Practitioner 09/27/18 12/03/20 Celia Carson PA-C [address] [place] [address] PCP - General 12/04/20 documented as of this encounter
--- OUTSIDE RECORDS SUMMARY | 2025-04-09 01:27 | XMS_ITS | Encounter Summary ---
Author Organization [facility] Address [facility]3 [facility] [place] [address] Care Team Providers Care House Builder Name Role Phone Doreen Mae APRN-DIGESTER OPERATOR Primary Care Provider + Celia Carson PA-C Primary Care Provider + Reason for Visit * Reason Onset Date Comments MEDICATION REFILL 01/23/2019 MEDICATION REFILL 02/20/2019 Encounter Details Date Type Department Care Team (Late st Contact Info) Description 01/23/2019 Refill [facility] General Internal Medicine [address] [facility] [address] [place] [address] Doreen Mae, CEMENT RAILROAD CAR LOADER-DIGESTER OPERATOR [address] OF [facility] [place] [address] MEDICATION REFILL; MEDICATION REFILL Social History Tobacco [...] deficiency documented in this encounter Care Teams House Builder Relationship Specialty Start Date End Date Doreen Mae APRN-BANDAR [address] [place] [address] PCP - General Nurse Practitioner 09/27/18 12/03/20 Celia Carson PA-C [address] [place] [address] PCP - General 12/04/20 documented as of this encounter
--- OUTSIDE RECORDS SUMMARY | 2025-04-09 01:27 | XMS_ITS | Encounter Summary ---
Author Organization [facility] Address [facility] [place] [address] Care Team Providers Care Job Training Supervisor Name Role Phone Celia Carson PA-C Primary Care Provider + Encounter Details Date Type Department Care Team (Late st Contact Info) Description 12/04/2020 Telephone [facility] Pulmonary, Critical Care and Sleep Medicine [address] [place] [address] Smita Lopez MD [address] OF PULMONARY/[place] [address] Social History Tobacco Use Types Packs/Day Years [...] MyCHart is down. Patient Call Back number: [phone] documented in this encounter Plan of Treatment Not on file documented as of this encounter Visit Diagnoses Not on filedocumented in this encounter Care Teams Job Training Supervisor Relationship Specialty Start Date End Date Celia Carson PA-C PCP - General 12/04/20 documented as of this encounter
--- OUTSIDE RECORDS SUMMARY | 2025-04-09 01:27 | XMS_ITS | Encounter Summary ---
Author Organization [facility] Address [facility]3 [facility] [place] [address] Care Team Providers Care Bulk Picker Name Role Phone Doreen Mae APRN-BANDAR Primary Care Provider + Celia Carson PA-C Primary Care Provider + Reason for Visit * Reason Onset Date Comments MEDICATION REFILL 03/28/2019 Encounter Details Date Type Department Care Team (Late st Contact Info) Description 03/28/2019 Refill [facility] General Internal Medicine [address] [facility] [address] [place] [address] Doreen Mae, SAFETY MANAGER-SEX THERAPIST [address] OF [facility] [place] [address] MEDICATION REFILL Social History Tobacco Use Types [...] disorder documented in this encounter Care Teams Bulk Picker Relationship Specialty Start Date End Date Doreen Mae APRN-CNP [facility] [place] [address] PCP - General Nurse Practitioner 09/27/18 12/03/20 Celia Carson PA-C [facility] [place] [address] PCP - General 12/04/20 documented as of this encounter
--- OUTSIDE RECORDS SUMMARY | 2025-04-09 01:27 | XMS_ITS | Clinical Summary ---
Author Organization [facility] Address [address] [facility] [place] [address] Care Team Providers Care Md Do Resident Urgent Care Name Role Phone Celia Carson PA-C Primary Care Provider + Source Comments [facility],non-owned Affiliates and Associated Physician Practices is amultiple site organization consisting of ambulatory clinics and hospital sitesin [place], [place], [place] and [place]. This disclosure is being madepursuant to the Care Everywhere program and may not contain all information available regarding this patient. Last updated 18.[facility] Allergies Active Allergy Reactions Criticality Noted [...] unspecified whether complicated, unspecified whether persistent (HCC) [place] 2 (two) sprays into each nostril once [...] Comments Blood Pressure 140/84 07/26/2020 10:47 AM GEOGRAPHY FACULTY MEMBER Pulse 106 05/28/2020 11:11 AM GEOGRAPHY FACULTY MEMBER Temperature 36.1 C (97 F) 07/26/2020 10:47 AM GEOGRAPHY FACULTY MEMBER Respiratory Rate 20 04/19/2020 11:35 AM CDT Oxygen Saturation 99% 07/26/2020 10:47 AM GEOGRAPHY FACULTY MEMBER Inhaled Oxygen Concentration - - Weight 145.2 kg (320 lb) 07/26/2020 10:47 AM GEOGRAPHY FACULTY MEMBER Height 160 cm (5' 3) 07/26/2020 10:47 AM GEOGRAPHY FACULTY MEMBER Body Mass Index 56.69 07/26/2020 10:47 AM GEOGRAPHY FACULTY MEMBER Plan of Treatment Health Maintenance Due Date [...] Comments LIPID PROFILE Routine 05/30/2019 2:35 PM GEOGRAPHY FACULTY MEMBER Class 3 severe obesity with serious comorbidity and body mass index (BMI) of 50.0 to 59.9 in adult, unspecified obesity type MAMMO BILAT SCREENING Routine 05/02/2019 2:42 PM CDT Healthcare maintenance from Last 3 Months or Most Recently Relevant to Health Maintenance Results * LIPID PROFILE (05/30/2019 2:35 PM GEOGRAPHY FACULTY MEMBER) Cholesterol Total 141 <200 mg/dL 05/30/2019 3:21 PM [facility] HDL 58 >40 mg/dL 05/30/2019 3:21 PM [facility] Comment: ATP III Classification of HDL Cholesterol: <40 mg/dL: Considered a major risk factor. >60 mg/dL: Considered a negative risk factor. LDL Calculated 72 <100 mg/dL 05/30/2019 3:21 PM [facility] Comment: ATP III Classification of LDL Cholesterol: <100 mg/dL: Optimal 100 - 129 mg/dL: Near Optimal/Above Optimal 130 - 159 mg/dL: Borderline High 160 - 189 mg/dL: High >190 mg/dL: Very High Triglycerides 53 <150 mg/dL 05/30/2019 3:21 PM [facility] Comment: ATP III Classification of Triglycerides: <150 mg/dL: Normal 150 - 199 mg/dL: Borderline High 200 - 400 mg/dL: High >500 mg/dL: Very High Blood BLOOD SPECIMEN / Unknown Lab Venipuncture / Unknown 05/30/2019 2:35 PM GEOGRAPHY FACULTY MEMBER 05/30/2019 2:56 PM GEOGRAPHY FACULTY MEMBER Doreen Mae APRNHOME THEATER SPECIALIST LAB - CHEMISTRY ORDERABL ES Final Result [address] [phone] * MAMMO BILAT SCREENING (05/02/2019 2:42 PM CDT) Anatomical Region Laterality Modality Breast Bilateral Mammography 05/24/2019 10:3 5 AM GEOGRAPHY FACULTY MEMBER Impressions 05/24/2019 10:39 AM GEOGRAPHY FACULTY MEMBER IMPRESSION: No mammographic evidence of malignancy. ASSESSMENT: BI-RADS Category 1: Negative mammogram. RECOMMENDATION: Bilateral screening mammogram in one year. This report was electronically signed by URSULA DOZIER M.D. on 05/24/2019 10:39 AM . Narrative 05/24/2019 10:39 AM GEOGRAPHY FACULTY MEMBER SCREENING MAMMOGRAM DATE: 05/02/2019 COMPARISON: Prior mammograms just received from [facility] dated 01/25/2017 and 12/10/2010. 2017 report not [...] Most Recently Relevant to Health Maintenance Insurance [facility] SELF PAY NO INSURANCE Member Subscriber Plan / Payer (Ef fective for All Dates) Name:Angie Leos Member ID:Not on file Relation to Subscriber:Self Name:ANGIE LEOS Subscriber ID:Not on file Payer ID:Not on file Group ID:Not on file Type:Self Pay Address: [facility] UHC MANAGED MEDICARE ADV MEDICAID - [place] Care Teams Md Do Resident Urgent Care Relationship Specialty Start Date End Date Celia Carson PA-C PCP - General 12/04/20
[2025-04-09 01:40] VITALS: BP 101/87; PULSE 97; RESP 18; O2SAT 95
[2025-04-09 01:43] LABS: Hematocrit 31.2 % (37.0-47.0); Hemoglobin 8.9 g/dL (12.0-15.0); Immature Granulocyte Percent A 0.3 % (0-0.5); Lymphocytes Absolute Auto 1.22 K/mm3 (0.9-3.2); Mean Corpuscular HGB Conc 28.5 g/dl (32-36); Mean Corpuscular Hemoglobin 19.3 pg (26-34); Mean Corpuscular Volume 67.7 fl (80-100); Nucleated Red Blood Cells Absolute Auto 0.000 K/mm3 (0.0-0.012); Nucleated Red Blood Cells Perc 0.0 % (0.0-0.2); Platelet Count Result 278 k/mm3 (150-375); Red Blood Count 4.61 M/mm3 (4.2-5.4); White Blood Count 6.9 K/mm3 (4.5-10.0)
--- NOTE | 2025-04-09 01:49 | ED.SKABFB ---
HPI - Skin/Abscess/Foreign Bdy General Chief complaint: Skin/Abscess/Foreign Body Stated complaint: cellulitis to R foot Time Seen by Provider: 04/09/25 01:14 Source: patient Mode of arrival: ambulatory Limitations: no limitations History of Present Illness HPI narrative: Patient presents with concern for infection or possible blood clot of her right foot. Last night around 2:00 a.m. she noticed that leg was red and she had a low-grade temperature of 100? F at home although this was taken after she took a shower. No antibiotic allergies. She has a history of edema in her feet but states that it is not normally red. She developed a throbbing pain and feels an itching, burning sensation. No history of diabetes mellitus or heart failure. She sees Dr. De La Cruz as her mulcher operator. She has been nauseated and vomiting though she reports a history of and present complicated infection. She also reports a history of anemia, she describes it as profound in states it was 4 or 5 point something but denies any history of blood transfusion. She states she took a patient home for fever and was prior to arrival. Her PCP is Abbi Pimentel. Related Data Home Medications ?Medication ?Instructions ?Recorded ?Confirmed ?Last Taken ?Type Home Oxygen 04/01/22 03/14/25 Unknown History Walkabout Mini Oxygen System 04/01/22 03/14/25 Unknown History ferrous sulfate 325 mg (65 mg 325 mg PO Q48H 01/27/23 03/22/25 03/19/25 History iron) tablet,delayed release tezepelumab-ekko 210 mg/1.91 mL 210 mg subcut MONTHLY 03/13/23 03/14/25 Unknown History (110 mg/mL) subcutaneous pen injector (Trellspire) amitriptyline 25 mg tablet 25 mg PO DAILY PRN stress 04/21/23 03/22/25 03/21/25 History amlodipine 5 mg tablet 5 mg PO DAILY 04/21/23 03/22/25 03/21/25 History fluticasone propionate 50 1 spray intranasal Q12H 04/21/23 03/22/25 03/21/25 History mcg/actuation nasal spray,suspension duloxetine 60 mg capsule,delayed 90 mg PO DAILY 07/29/23 03/22/25 03/21/25 History release fluticasone fur. 200 mcg-umeclid 1 inh inhalation DAILY 09/27/24 03/22/25 03/21/25 History 62.5 mcg-vilant 25 mcg inhalat.powder (Trelegy Ellipta) Allergies Allergy/AdvReac Type Severity Reaction Status Date / Time nickel Allergy Intermediate Swelling Verified 03/22/25 07:22 METALS Allergy Intermediate Rash Uncoded 02/24/25 09:06 [facility] Past Medical History Medical History Iron deficiency anemia MRSA (methicillin resistant Staphylococcus aureus) carrier Morbid obesity Obstructive sleep apnea Patient reports that her most recent sleep study showed no indication for CPAP. Hypertension Anxiety Chronic sinusitis Gastroesophageal reflux disease Fibromyalgia Tendonitis Asthma Surgical History Surgical History H/O: hysterectomy History of sinus surgery History of section X1 History of endometrial ablation History of tubal ligation (~2009) Anterior ethmoid and maxillary antrostomy. History of bilateral carpal tunnel release x2 Family History Family History Father Hypertension Mother Alive and well Grandparent Breast cancer Social History Social History (Updated 04/09/25 @ 08:15 by Nanda Garcia MD) Social History: The patient is on diability. She has 1 daughter. She also has a significant get other. She tells me that she has never smoked. Surrogate decision maker: Bisi Sanderson, mother. Code status: Full code. Smoking status: Unknown if ever smoked Second hand tobacco smoke exposure: No Alcohol intake: unknown Substance use: unknown Substance use type: does not use Lack of Transportation: No Lack of Food: Never True Current Housing: I Have Housing Concerned About Future Housing: No Difficulty Paying Gas/Electric Bills: No Difficulty Paying for Meds: No Currently Unemployed: No Education: High School Diploma/GED Difficulty w/ Childcare or Family Care: No Living arrangements: with family Additional living arrangements comments: Lives in [place] with a friend. 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 Gender identity (if verbalized by the patient): Female Sexual Orientation (if Verbalized by the Patient): Straight or Heterosexual Spiritual care concerns: No Exam Narrative: GENERAL: Well-appearing, well-nourished, and in no acute distress. HEAD: Normocephalic, atraumatic. EYES: Non injected, non icteric ENT: Nares clear, no rhinorrhea or epistaxis. Gross auditory acuity intact. NECK: Supple. No meningismus. CHEST: Speaking in full sentences. No respiratory distress. HEART: Regular rate and rhythm. . ABDOMEN: Soft, nondistended. No rigidity or guarding. Not peritoneal EXTREMITIES: Normal range of motion. Pedal edema R > L though not pitting. Tenderness to palpation of the right foot along the dorsum which has faint erythema and very mild warmth. SKIN: Warm, dry. Patient also later shows me an area of erythema along the medial aspect of her left ankle and one on her left anterior chest. NEURO: No focal deficits. Alert and oriented. Answering questions. Following commands. Normal speech without aphasia or dysarthria. Sensation intact throughout right lower extremity. Psych: Good eye contact. Patient is loquacious, verbose. Does not appear to be responding to internal stimuli but occasionally itching at various parts of her body or picking at parts of her body including on her face and or running her hands repetitively in her hair. Course Vital Signs Vital signs: Vital Signs Temperature 98.4 F 04/08/25 22:06 Pulse Rate 107 H 04/08/25 22:06 Respiratory Rate 23 H 04/08/25 22:06 Blood Pressure 134/61 04/08/25 22:06 Pulse Oximetry 99 04/08/25 22:06 Oxygen Delivery Room Air 04/08/25 22:06 Temperature 98.4 F 04/08/25 22:06 Pulse Rate 89 04/09/25 06:45 Respiratory Rate 18 04/09/25 06:45 Blood Pressure 133/78 04/09/25 06:45 Pulse Oximetry 98 04/09/25 06:45 Oxygen Delivery Room Air 04/08/25 22:06 MDM - Skin/Abscess/Foreign Bdy MDM Narrative Medical decision making narrative: Patient presents with report of swelling and throbbing pain in her right foot which she describes as an itching and burning sensation. She is concerned for both infection as well as a blood clot. History of MRSA as well as another infection and complicated by sepsis. In the emergency department she is afebrile with vital signs that show mild tachycardia and mild tachypnea. Lactic acid is not elevated. Mild hyponatremia but only a drop of 2 from previous. Microcytic anemia stable previous. CRP and ESR are elevated. CPK normal. BNP is only mildly elevated, not to a degree to suggest acute heart failure especially given the reference range of the assay for patient's age. D-dimer is just mildly abnormal. Patient is given the option being discharged outpatient order for this study versus, since this approximately 3:00 a.m. in the morning, staying and having it done when they arrive at approximately 7 or 8am. She notes that she has an appointment here at [facility] later this morning. She continues to demonstrate twitching and bizarre picking and itching thoughout her face. She does decide at 3:30 to stay; US order placed. Negative, as below. Treated for cellulitis; first dose antibiotic in the ED with rest of course prescribed. Dual antibiotic therapy given her history. Also prescribed Benadryl for itching. Differential Diagnosis Differential diagnosis: Likely viral exanthem, dermatophytosis, urticaria, allergic reaction to drug, cellulitis, eczema, insect bites, contact dermatitis and other (heart failure, DVT, psych related; drug related) Lab Data 04/09/25 01:34 04/09/25 01:34 Labs: Lab Results 04/09/25 Range/Units 01:34 WBC 6.9 (4.5-10.0) K/mm3 RBC 4.61 (4.2-5.4) M/mm3 Hgb 8.9 L (12.0-15.0) g/dL Hct 31.2 L (37.0-47.0) % MCV 67.7 L (80-100) fl MCH 19.3 L (26-34) pg MCHC 28.5 L (32-36) g/dl RDW 26.5 H (11.5-14.5) % Plt Count 278 (150-375) k/mm3 MPV 8.7 (7.4-10.4) fl Immature Gran % (Auto) 0.3 (0-0.5) % Neut % (Auto) 66.8 (45.5-73.1) % Lymph % (Auto) 17.8 L (18.3-44.2) % Cherokee % (Auto) 13.9 H (2.6-8.5) % Eos % (Auto) 0.9 (0-4.4) % Baso % (Auto) 0.3 (0.2-1.2) % Lymph # (Auto) 1.22 (0.9-3.2) K/mm3 Cherokee # (Auto) 1.0 H (0.1-0.6) K/mm3 Eos # (Auto) 0.1 (0-0.3) K/mm3 Baso # (Auto) 0.0 (0.0-0.1) K/mm3 Abs Immat Gran (auto) 0.02 (0.00-0.031) K/mm3 Absolute Neuts (auto) 4.6 (1.3-6.7) K/mm3 Absolute Nucleated RBC 0.000 (0.0-0.012) K/mm3 Band Neutrophils % Not Reportable Nucleated RBC % 0.0 (0.0-0.2) % Platelet Estimate Adequate (Adequate) Hypochromasia 2+ Anisocytosis 2+ Microcytosis 2+ (NORMAL) Ovalocytes 1+ Stomatocytes 1+ Schistocytes None seen ESR 50 H (0-20) mm/hr D-Dimer 0.51 H (<0.48) ug/mL Sodium 134 L (137-145) mmol/L Potassium 3.6 (3.4-5.0) mmol/L Chloride 101 (98-107) mmol/L Carbon Dioxide 26 (22-30) mmol/L Anion Gap 7 (4-12) mmol/L BUN 16 (7-17) mg/dL Creatinine 0.96 (0.7-1.0) mg/dL Estim Creat Clear Calc 87 ml/min Estimated GFR > 60 (59 - ) Glucose 110 (65-110) mg/dL Lactic Acid 0.5 L (0.7-2.0) mmol/L Calcium 9.1 (8.4-10.2) mg/dL Total Creatine Kinase 104 (30-135) U/L C-Reactive Protein 3.8 H (<1.0) mg/dL NT-Pro-B Natriuret Pep 105 H (19.9-100) pg/mL Imaging Data Radiologist's impression: Impressions Venous Doppler Study 04/09/25 08:24 Impression: Negative for DVT. Discharge Plan Discharge Clinical Impression: Hyponatremia, Microcytic anemia, CRP elevated, Elevated erythrocyte sedimentation rate, Pruritic erythematous rash Patient Disposition: Home Condition: Stable Instructions: Antibiotic Form, Cellulitis (ED), Hyponatremia (ED), Anemia (ED), Itchy Skin (ED) Additional Instructions: No blood clot. For the itchy skin, you can use the diphenhydramine. A few of the areas appeared infected, this is known as cellulitis and so antibiotics have been prescribed. First dose received in the ED. Because of your history, dual antibiotic coverage is being used. Follow up with your primary care physician. Keep your upcoming appointment later this morning with pulmonology. Return to the ED with new/worsening symptoms. Patient Language: Guamanian Prescriptions: New diphenhydramine HCl [Allergy (diphenhydramine)] 25 mg capsule 25 mg PO BID PRN (Reason: itching) Qty: 16 0RF sulfamethoxazole-trimethoprim [Bactrim DS] 800-160 mg tablet 1 tablet PO Q12H 5 Days Qty: 10 0RF cephalexin 500 mg tablet 500 mg PO Q8H 5 Days Qty: 15 0RF Rx Instructions: can substitute for capsules fluconazole 150 mg tablet 150 mg PO ONCE Qty: 1 0RF Rx Instructions: as a single dose No Action (DME) Walkabout Mini Oxygen System (DME) Home Oxygen Rx Instructions: 2 l/nc as needed SOB amitriptyline 25 mg tablet 25 mg PO DAILY PRN (Reason: stress) amlodipine 5 mg tablet 5 mg PO DAILY fluticasone propionate 50 mcg/actuation spray,suspension 1 spray intranasal Q12H duloxetine 60 mg capsule,delayed release(DR/EC) 90 mg PO DAILY albuterol sulfate 90 mcg/actuation HFA aerosol inhaler 2 puff INHALATION QID PRN (Reason: shortness of breath or wheezing) Qty: 8 6RF Rx Instructions: rescue inhaler albuterol sulfate 2.5 mg /3 mL (0.083 %) solution for nebulization 2.5 mg inhalation Q6-8H PRN (Reason: shortness of breath or wheezing) Qty: 90 6RF Spiriva Respimat 2.5 mcg/actuation mist 2 puff inhalation DAILY Qty: 4 6RF Trelegy Ellipta 200-62.5-25 mcg blister with device 1 inh inhalation DAILY hydrocortisone acetate [Anusol-HC] 25 mg suppository 25 mg RECTAL BID Qty: 20 0RF torsemide 20 mg Tablet 20 mg PO QAM Qty: 30 0RF Tezspire 210 mg/1.91 mL (110 mg/mL) pen injector 210 mg SUBCUT MONTHLY Rx Instructions: dispensed from pharmacy 03/02/23 ferrous sulfate 325 mg (65 mg iron) tablet,delayed release (DR/EC) 325 mg PO Q48H Rx Instructions: ;Take 1 tablet every other day for anem next dose due 01/28/23 fluticasone propion-salmeterol [Advair HFA] 230-21 mcg/actuation HFA aerosol inhaler See Rx Instructions .ROUTE .COMPLEX Qty: 12 6RF Dose Instruction: INHALE 2 PUFFS BY MOUTH TWICE DAILY Rx Instructions: INHALE 2 PUFFS BY MOUTH TWICE DAILY montelukast [Singulair] 10 mg tablet 10 mg PO DAILY Qty: 30 6RF omeprazole 20 mg capsule,delayed release(DR/EC) See Rx Instructions .ROUTE .COMPLEX Qty: 180 6RF Dose Instruction: TAKE 2 CAPSULES BY MOUTH DAILY Rx Instructions: TAKE 2 CAPSULES BY MOUTH DAILY Follow-up/Referrals: Charli,JOYCELYN Sanders [Primary Care Provider, Unknown] Time of Disposition: 08:31
[2025-04-09 01:59] LABS: Anion Gap 7 mmol/L (4-12); Blood Urea Nitrogen 16 mg/dL (7-17); CRP 3.8 mg/dL (<1.0); Calcium 9.1 mg/dL (8.4-10.2); Carbon Dioxide 26 mmol/L (22-30); Chloride 101 mmol/L (98-107); Estimated CRCL calculation 87 ml/min; Estimated Glomerular Filt Rate > 60; Glucose 110 mg/dL (65-110); Potassium 3.6 mmol/L (3.4-5.0); Sodium 134 mmol/L (137-145)
[2025-04-09 02:19] LABS: Hypochromasia 2+
[2025-04-09 02:20] LABS: Anisocytosis 2+; Microcytosis 2+ (NORMAL); Ovalocytes 1+; Schistocytes None Seen; Stomatocytes 1+
[2025-04-09] MEDS: ACETAMINOPHEN 500 MG TABLET 1000 MG PO (02:24)
[2025-04-09] MEDS: diphenhydrAMINE HCl CAP 25 MG CAPSULE PO ×2 (02:24→03:44)
[2025-04-09 02:25] LABS: Creatine Kinase 104 U/L (30-135)
[2025-04-09 02:35] LABS: NT Pro B Type Natriuretic Pept 105 pg/mL (19.9-100)
[2025-04-09 03:37] VITALS: BP 143/88; PULSE 94; RESP 18; O2SAT 98
--- NOTE | 2025-04-09 04:17 | PC.NURSE ---
This Rn attempted to go get urine from pt at this time. Pt is asleep. MD Garcia verbally states it is okay to let pt sleep at this time.
--- NOTE | 2025-04-09 06:08 | PC.NURSE ---
Juvenal Lemus attempted to get urine sample on pt at this time. Pt denies having to urinate. Pt states I can't stand because of my leg. Pt was offered straight cath and she refuses that at this time as well.
[2025-04-09 06:45] VITALS: BP 133/78; PULSE 89; RESP 18; O2SAT 98
--- NOTE | 2025-04-09 08:26 | PC.NURSE ---
Offered a specimen hat for pt to use restroom and give urine sample, pt states unable to go at this time. will let us know when she needs to go.
[2025-04-09] MEDS: CEPHALEXIN 500 MG CAPSULE PO (08:46)
[2025-04-09] MEDS: SULFAMETHOXAZOLE/TRIMETHOPRIM 800/160 MG DS TABLET 1 TAB PO (08:46)
== END 2025-04-09 09:00 | disposition home or self-care (01) ==
PROVIDERS: Emergency Provider Student in an Organized Health Care Education/Training Program; PCP Nurse Practitioner Family
DX: L29.9 Pruritus, unspecified (principal); D50.9 Iron deficiency anemia, unspecified; E87.1 Hypo-osmolality and hyponatremia; R79.82 Elevated C-reactive protein (CRP); R70.0 Elevated erythrocyte sedimentation rate; I10 Essential (primary) hypertension; J45.909 Unspecified asthma, uncomplicated; E66.01 Morbid (severe) obesity due to excess calories; Z68.43 Body mass index [BMI] 50.0-59.9, adult; K21.9 Gastro-esophageal reflux disease without esophagitis; M79.7 Fibromyalgia; G47.33 Obstructive sleep apnea (adult) (pediatric); F41.9 Anxiety disorder, unspecified; Z86.14 Personal history of Methicillin resistant Staphylococcus aureus infection; Z90.710 Acquired absence of both cervix and uterus; Z79.899 Other long term (current) drug therapy
CPT/HCPCS: 36415; 80048; 82550; 83605; 83880; 85025; 85380; 85652; 86140; 93970; 99284; A9270

== ENCOUNTER 2025-06-01 08:01 | Outpatient (CLI) | payer MEDICARE, MEDICAID, SELFPAY ==
--- OUTSIDE RECORDS SUMMARY | 2024-12-07 01:30 | XMS_ITS ---
Author Organization [facility] [place] ([address]) Address [address] [place] [address] Care Team Providers Care Box Turner Name Role Phone KyHiginio Unavailable [phone] Michael Gleason Unavailable Unavailable REASON FOR VISIT Asthma w/o mention of status asthmaticus or acute exacerbation follow-up, TEZSPIRE administration scheduled today, Needs evaluation for pre-TEZSPIRE health questionaire to assess health status and medication review Social History Sex Assigned At : Social History Observation Description Sex Assigned At Female Encounters Encounter Location Date Provider Diagnosis [facility] [address] [place] [address] 12/07/2024 Higinio Mcpherson Severe persistent asthma, uncomplicated J45.50 Assessments Encounter Date Diagnosis (ICD Code) Assessment Notes Treatment Notes Treatment Clinical Notes Section Notes 12/07/2024 Severe persistent asthma, uncomplicated (ICD-10 - J45.50) 12/07/2024 Other Plan Of Treatment Next Appt Details Follow Up: As scheduled for tezspire, Reason: Provider Name:Amy hernández, 06/14/2025 08:20:00 AM, [address], [address], [place], [address], Progress Notes * Kary LEOSB:1970 (55 yo F)Acc No.[id number]:12/07/2024 TEZSPIRE Only Patient: Angie CABRERA Provider: Sheeba Mcpherson MD :1970 A ge:54 Y S ex:Female Date:12/07/2024 Address:[address] [place], [place] [address] Subjective: * Chief Complaints: * 1 . Asthma w/o mention of status asthmaticus or acute exacerbation follow-up, TEZSPIRE administration scheduled today. 2. Needs evaluation for pre-TEZSPIRE health questionaire to assess health status and medication review. * HPI: * Introduction: The patient is [...] peak flow (if appropriate)). * Medical History: Objective: * Vitals: Assessment: * Assessment: 1. S evere persistent asthma, uncomplicated - J45.50 (Primary) Plan: * Treatment: * Follow Up: A s scheduled for tezspire * Billing Information: * Visit Code: * Procedure Codes: 41843 PT-FOCUSED HLTH RISK ASSMT. 77952 THER/PROPH/DIAG INJ, SC/IM. * Electronic signature of Ling Mcpherson MD, FAAAAI on 06/01/2025 at 08:05 AM INDUSTRIAL ECOLOGIST Sign off status: Pending * Provider: Sheeba Mcpherson MD Date: 0 12/07/2024 Generated for Max hernandez/Raynag/eTransmitting on: 08/01/2024 08:05 AM INDUSTRIAL ECOLOGIST History and Physical Notes * HPI (History [...]
--- OUTSIDE RECORDS SUMMARY | 2024-12-14 01:30 | XMS_ITS ---
Author Organization [facility] [place] ([address]) Address [address] [place] [address] Care Team Providers Care Executive Housekeeper Name Role Phone Higinio Mcpherson [phone] Michael Gleason Unavailable Unavailable REASON FOR VISIT TEZSPIRE SP Only Social History Sex Assigned At : Social History Observation Description Sex Assigned At Female Encounters Encounter Location Date Provider Diagnosis [facility] [address] [place] [address] 12/14/2024 Higinio Mcpherson Plan Of Treatment Next Appt Details Provider Name:Amy Judge tulio betty, 06/14/2025 08:20:00 AM, [address], [address], [place], [address], Progress Notes * Kary LEOSB:1970 (55 yo F)Acc No.[id number]:12/14/2024 TEZSPIRE Only Patient: Vaughn BRANDON Angie Provider: Sheeba Mcpherson MD :1970 A ge:54 Y S ex:Female Date:12/14/2024 Address:[address] [place], [place] [phone] Subjective: * Chief Complaints: * 1 . TEZSPIRE SP Only. * Medical History: Objective: * Vitals: Assessment: Plan: * Treatment: * Billing Information: * Visit Code: * Procedure Codes: * Electronic signature of Ling Mcpherson MD, FAAAAI on 06/01/2025 at 08:06 AM CONDUIT MECHANIC Sign off status: Pending * Provider: Sheeba Mcpherson MD Date: 0 12/14/2024 Generated for Max hernandez/Erinn/Isidro on: 1 08/01/2024 08:06 AM CONDUIT MECHANIC
--- OUTSIDE RECORDS SUMMARY | 2025-01-04 11:30 | XMS_ITS ---
Author Organization [facility] [place] ([address]) Address [address] [place] [address] Care Team Providers Care Community Service Worker Name Role Phone Higinio Mcpherson Unavailable [phone] Michael Gleason Unavailable Unavailable Mark Ellsworth Unavailable [phone] REASON FOR VISIT TEZSPIRE SP Follow-up Social History Sex Assigned At : Social History Observation Description Sex Assigned At Female Encounters Encounter Location Date Provider Diagnosis [facility] [address] [place] [address] 01/04/2025 Mark Ellsworth Plan Of Treatment Next Appt Details Provider Name:Amy Nu Helmtulio betty, 06/14/2025 08:20:00 AM, [address] [employer] [facility], [address], [place], [address], Progress Notes * Eirc LEOSiDOB:1970 (55 yo F)Acc No.[id number]:01/04/2025 TEZSPIRE Adiministration Vis it Patient: Angie CABRERA Provider: Nu Ellsworth :1970 A ge:54 Y S ex:Female Date:01/04/2025 Address:[address] [place], [place] [address] Subjective: * Chief Complaints: * 1 . TEZSPIRE SP Follow-up. * Medical History: Objective: * Vitals: Assessment: Plan: * Treatment: * Billing Information: * Visit Code: * Procedure Codes: * Electronic signature of MD Hui ph D on 06/01/2025 at 08:06 AM RESOLUTION SPECIALIST Sign off status: Pending * Provider: Nu Ellsworth Date: 01/04/2025 Generated for Max hernandez/Erinn/Isidro on: 08/01/2024 08:06 AM RESOLUTION SPECIALIST
--- OUTSIDE RECORDS SUMMARY | 2025-02-15 11:30 | XMS_ITS ---
Author Organization [facility] [place] ([address]) Address [address] [place] [address] Care Team Providers Care Parts Administrator Name Role Phone Higinio Mcpherson [phone] Michael Gleason Unavailable Unavailable REASON FOR VISIT TEZSPIRE SP Only Social History Sex Assigned At : Social History Observation Description Sex Assigned At Female Encounters Encounter Location Date Provider Diagnosis [facility] [address] [place] [address] 02/15/2025 Higinio Mcpherson Plan Of Treatment Next Appt Details Provider Name:Amy Judge tulio hernández, 06/14/2025 08:20:00 AM, [address] [employer], [address], [place], [address], Progress Notes * Eric LEOSiDOB:1970 (55 yo F)Acc No.[id number]:02/15/2025 TEZSPIRE Only Patient: Vaughn BRANDON Angie Provider: Sheeba Mcpherson MD :1970 A ge:55 Y S ex:Female Date:02/15/2025 Address:[address] [place], [place] [address] Subjective: * Chief Complaints: * 1 . TEZSPIRE SP Only. * Medical History: Objective: * Vitals: Assessment: Plan: * Treatment: * Billing Information: * Visit Code: * Procedure Codes: * Electronic signature of Ling Mcpherson MD, FAAAAI on 06/01/2025 at 08:06 AM INSPECTOR AIR CARRIER Sign off status: Pending * Provider: Sheeba Mcpherson MD Date: 0 02/15/2025 Generated for Max hernandez/Erinn/Isidro on: 1 08/01/2024 08:06 AM INSPECTOR AIR CARRIER
--- OUTSIDE RECORDS SUMMARY | 2025-04-05 01:30 | XMS_ITS ---
Author Organization [facility] [place] ([address]) Address [address] [place] [address] Care Team Providers Care Family Nurse Practitioner Name Role Phone Higinio Mcpherson [phone] Michael Gleason Unavailable Unavailable REASON FOR VISIT TEZSPIRE SP Only Social History Sex Assigned At : Social History Observation Description Sex Assigned At Female Encounters Encounter Location Date Provider Diagnosis [facility] [address] [place] [address] 04/05/2025 Higinio Mcpherson Plan Of Treatment Next Appt Details Provider Name:Amy Judge tulio betty, 06/14/2025 08:20:00 AM, [address], [address], [place], [address], Progress Notes * Kary LEOSB:1970 (55 yo F)Acc No.[id number]:04/05/2025 TEZSPIRE Only Patient: Vaughn BRANDON Angie Provider: Sheeba Mcpherson MD :1970 A ge:55 Y S ex:Female Date:04/05/2025 Address:[address] [place], [place] [id number] Subjective: * Chief Complaints: * 1 . TEZSPIRE SP Only. * Medical History: Objective: * Vitals: Assessment: Plan: * Treatment: * Billing Information: * Visit Code: * Procedure Codes: * Electronic signature of Ling Mcpherson MD, FAAAAI on 06/01/2025 at 08:06 AM OUTSIDE PLANT CABLE ENGINEER Sign off status: Pending * Provider: Sheeba Mcpherson MD Date: Generated for Max hernandez/Erinn/Isidro on: 08/01/2024 08:06 AM OUTSIDE PLANT CABLE ENGINEER
--- OUTSIDE RECORDS SUMMARY | 2025-05-10 01:30 | XMS_ITS ---
Author Organization [facility] [place] ([address]) Address [address] [place] [address] Care Team Providers Care Yarn Mercerizer Operator Helper Name Role Phone KyAlinaHiginio Unavailable [phone] Michael Gleason Unavailable Unavailable REASON FOR VISIT Asthma w/o mention of status asthmaticus or acute exacerbation follow-up, TEZSPIRE administration scheduled today, Needs evaluation for pre-TEZSPIRE health questionaire to assess health status and medication review Social History Sex Assigned At : Social History Observation Description Sex Assigned At Female Encounters Encounter Location Date Provider Diagnosis [facility] [address] [place] [address] 05/10/2025 Higinio Mcpherson Severe persistent asthma, uncomplicated J45.50 Assessments Encounter Date Diagnosis (ICD Code) Assessment Notes Treatment Notes Treatment Clinical Notes Section Notes 05/10/2025 Severe persistent asthma, uncomplicated (ICD-10 - J45.50) 05/10/2025 Other Plan Of Treatment Next Appt Details Follow Up: As scheduled for tezspire, Reason: Provider Name:Amy hernández, 06/14/2025 08:20:00 AM, [address], [address], [place], [address], Progress Notes * Kary LEOSB:1970 (55 yo F)Acc No.[id number]:05/10/2025 TEZSPIRE Only Patient: Angie CABRERA Provider: Sheeba Mcpherson MD :1970 A ge:55 Y S ex:Female Date:05/10/2025 Address:[address] [place], [place] [id number] Subjective: * Chief Complaints: * 1 . [...] Information: * Visit Code: * Procedure Codes: 51466 PT-FOCUSED HLTH RISK ASSMT. 57624 THER/PROPH/DIAG INJ, SC/IM. * Electronic signature of Ling Mcpherson MD, FAAAAI on 06/01/2025 at 08:06 AM PAINTING INSTRUCTOR Sign off status: Pending * Provider: Sheeba Mcpherson MD Date: 07/10/2024 Generated for Max ng/Raynag/eTransmitting on: 08/01/2024 08:06 AM PAINTING INSTRUCTOR History and Physical Notes * HPI (History [...]
--- NOTE | ~2025-06-01 | MM_ITS ---
EXAMINATION: MM screening zuri BI w kolton HISTORY: Screening TECHNIQUE: Craniocaudal and mediolateral oblique 3-D tomosynthesis images were obtained and synthetic 2-D images were generated. CAD analysis was submitted and interpreted. COMPARISON: No prior mammogram is available for comparison at this institution. BREAST PARENCHYMAL COMPOSITION: Not dense: There are scattered areas of fibroglandular density. FINDINGS: There are bilateral intramammary lymph nodes in the upper outer quadrants. There is no evidence of suspicious mass, calcification, or architectural distortion to suggest malignancy in either breast. There has been no suspicious interval change. IMPRESSION: 1. No mammographic evidence of malignancy. 2. Recommend routine screening mammography in one year. BI-RADS Category 1: Negative Reviewed, dictated and finalized at location I. [employer]
--- OUTSIDE RECORDS SUMMARY | 2025-06-01 08:05 | XMS_ITS | Encounter Summary ---
Author Organization [facility] Address [address] [place] [address] Care Team Providers Care Mannequin Molder Name Role Phone Doreen Mae PCA ASSISTED LIVING-LEARNING AND DEVELOPMENT OFFICER Primary Care Provider + Celia Carson PA-C Primary Care Provider + Encounter Details Date Type Department Care Team (Late st Contact Info) Description 06/14/2020 Telephone [facility] Critical Care [facility] Sleep Medicine [address] [place] [address] Smita Lopez MD [address] OF PULMONARY/[place] [address] Social History Tobacco Use Types Packs/Day Years [...] call: [facility]. She took first avail, 09/28/2019. She would like to be seen much sooner since she was in hospital for five days prior toThanksgiving. She was in [facility] in [place], [place]. They put her on oxygen and her oxygen levels are low, she said they are about 90, 91. Additionally, her PCP is ordering a HEART ECHO procedure. Please see about an earlier appt and call her. Patient Call Back number: [phone] TOR OF PHOTOGRAPHY AND PRINTS documented in this encounter Plan of Treatment Not on file documented as of this encounter Visit Diagnoses Not on filedocumented in this encounter Care Teams Mannequin Molder Relationship Specialty Start Date End Date Doreen Mae, ASHLEY-BANDAR [address] [place] [id number] PCP - General Nurse Practitioner 09/27/18 12/03/20 Celia Carson PA-C [address] [place] [address] PCP - General 12/04/20 documented as of this encounter
--- OUTSIDE RECORDS SUMMARY | 2025-06-01 08:05 | XMS_ITS | Encounter Summary ---
Author Organization [facility] Healthcare Address [address] [place] [address] Care Team Providers Care Inbound Customer Service Representative Name Role Phone Marilyn Augustin TEAM ASSEMBLER Primary Care Provider [phone] Reason for Visit * Reason Onset Date Comments Additional Services Or Orders 05/14/2025 Encounter Details Date Type Department Care Team (Late st Contact Info) Description 05/14/2025 Telephone [facility] Family Medicine [address] [place] [address] Marilyn Augustin, TEAM ASSEMBLER [address] [facility] [address] [place] [address] Additional Services Or Orders Social History Tobacco Use Types Packs/Day Years Used Date Smoking Tobacco: Never Smokeless Tobacco: Never Alcohol Use Standard Drinks/Week Comments Never 0 (1 standard drink = 0.6 oz pur e alcohol) PHQ-2 Answer Date Recorded PHQ-2 Total Score (If total score is 3 or more points, staff should administer the PHQ-9) 1 04/19/2025 Exercise Vital Sign Answer Date Recorde d On average, how many days pe r week do you engage in moderate to strenuous exercise (like a brisk walk)? 0 days 04/02/2021 On average, how many minutes do you engage in exercise at this level? 0 min 04/02/2021 AUDIT-C Answer Date Recorded Q1: How often do you have a drink containing alcohol? Never 04/19/2025 Q2: How many drinks containi ng alcohol do you have on a typical day when you are drinking? Patient does not drink Q3: How often do you have si x or more drinks on one occasion? 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 Called and made pt aware. RANCE ADMINISTRATOR * Telephone Encounter - Marilyn Augustin NP - 05/15/2025 3:45 PM CST Okay for cmp and urine culture RANCE ADMINISTRATOR * Telephone Encounter - Jadyn Lacy MA - 05/15/2025 3:20 PM CST Wants to go to [facility] needing Urine culture and wanting lab work to check her kidneys. RANCE ADMINISTRATOR * Telephone Encounter - Yoana Jaime - 05/15/2025 1:35 PM CST Call Back Caller???s Concern: Pt returned call she stated she would like labs to check her kidney function tomake sure her kidneys are ok and her urine as well. Please call pt to advise Does message need to be routed? Yes-Action Needed RANCE ADMINISTRATOR * Telephone Encounter - Rosmery Tanner LPN - 05/14/2025 10:04 AM INSURANCE ADMINISTRATOR Called and LVM for pt to return call. Pt can come today for a nurse visit to run urine, she can be scheduled for tomorrow at 9:30am, or she can wait until Marilyn is back to office tomorrow and we can ask what labs she would like to order. Which would pt like to do? RANCE ADMINISTRATOR * Telephone Encounter - Mary West MA - 05/14/2025 8:35 AM CST Additional Services or Orders Type of Service Requested:Labs Reason for Request (e.g. condition/symptom, date of COVID exposure if applicable): Patient says sheis having lots of bladder issues and abdominal pain. Details Regarding Additional Services (e.g. type of home health, type of equipment, type of test, etc.): Labs for UTI and also she would like to have her kidney's checked Where will services be performed? (if outside of the practice, facility name, address, phone/fax offacility): TBD Additional Comments: patient says her urine is really dark and she has taken some medication that can hurt her kidneys. She says her skin is also itching and she does not know if that has to do with anything. She says to ask Marilyn if she will just order any labs that she thinks is necessary. She would like a call when the labs are put in and she will go get them done CS will send over as HP due to circumstances. Please advise and thank you so much. Does message need to be routed? Yes-Action Needed RANCE ADMINISTRATOR documented in this encounter Plan of Treatment Not on file documented as of this encounter Visit Diagnoses Not on filedocumented in this encounter Care Teams Inbound Customer Service Representative Relationship Specialty Start Date End Date Marilyn Augustin NP [address] [place] [address] PCP - General Internal Medicine 11/05/22 documented as of this encounter
--- OUTSIDE RECORDS SUMMARY | 2025-06-01 08:06 | XMS_ITS | Encounter Summary ---
Author Organization [facility] Address [address] [place] [address] Care Team Providers Care Loan Documentation Specialist Name Role Phone Doreen Mae APRN-BLOCKER AND CUTTER CONTACT LENS Primary Care Provider + Celia Carson PA-C Primary Care Provider + Reason for Visit * Reason Onset Date Comments Appointment 11/29/2018 Encounter Details Date Type Department Care Team (Late st Contact Info) Description 11/29/2018 Telephone [facility] General Internal Medicine [address] [address] Doreen Mae, FREIGHT DISPATCHER-BLOCKER AND CUTTER CONTACT LENS [address] OF [facility] [place] [address] Appointment Social History Tobacco Use Types Packs/Day [...] voicemail to contact the scheduling department at [phone] Note: This is too soon to see me back. ?? Please schedule patient with FUN HOUSE ATTENDANT Christianne Leon Segura, or Chapis for later in the month, ideally around 12/22/18. To keep appointment with me 01/24/19, as well. * Telephone Encounter - Doreen Dsouza APRN-CNP - 12/01/2018 10:59 AM CDT This is too soon to see me back. Please schedule patient with FUN HOUSE ATTENDANT Christianne Leon Segura, or [facility]is for later [...] will need to be seen by another FUN HOUSE ATTENDANT: Celia Avalos, Alexia Nation or Arti Leon or will need to be seen before I am out of the office. I do not need to see her monthly. However, if it is required for her weight loss surgery, she can be scheduled. ThanksDoreen APRN-CNP * Telephone Encounter - Zulema Schwartz - 11/29/2018 4:19 PM CDT Pt: Angie Sanchez#: [id number] Pt calling to verify her next appointment [...] on filedocumented in this encounter Care Teams Loan Documentation Specialist Relationship Specialty Start Date End Date Doreen Mae APRN-CNP [address] [place] [address] PCP - General Nurse Practitioner 09/27/18 12/03/20 Celia Carson PA-C [address] [place] [address] PCP - General 12/04/20 documented as of this encounter
--- OUTSIDE RECORDS SUMMARY | 2025-06-01 08:06 | XMS_ITS | Encounter Summary ---
Author Organization 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 on file Not on file Not on file documented as of this encounter Plan of Treatment Not on file documented as of this encounter Procedures Procedure Name Priority Date/Time Associated Diagnosis Comments SCAN - RADIOLOGY/IMAGING 04/08/2025 documented in this encounter Results * SCAN - RADIOLOGY/IMAGING (04/08/2025) Anatomical Region Laterality Modality Other us Provider Scanning Final Result documented in this encounter Visit Diagnoses Not on filedocumented in this encounter Care Teams Food Service Worker Hospital Relationship Specialty Start Date End Date Marilyn Augustin, CHIEF SERVICE OBSERVER [address] [facility] [address] [place] [address] PCP - General Internal Medicine 11/05/22 documented as of this encounter
--- OUTSIDE RECORDS SUMMARY | 2025-06-01 08:06 | XMS_ITS | Encounter Summary ---
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
--- OUTSIDE RECORDS SUMMARY | 2025-06-01 08:06 | XMS_ITS | Clinical Summary ---
Author Organization [facility] [address] [facility] Address [address] [place] [address] Care Team Providers Care Corporate Staff Accountant Name Role Phone Mairlyn Augustin NP Primary Care Provider [phone] Allergies Active Allergy Reactions Criticality Noted Date Comments Nickel Swelling,Itching,Unknown Medium 03/29/2020 Medications blood pressure kit-extra large kitIndications:Es sential hypertension 1 each daily 1 kit 06/16/20 21 Active EPINEPHrine 0.3 mg/0.3 mL auto-injection syringe [...] ONCE NIGHTLY 100 tablet 09/10/19 25 Active torsemide (DEMADEX) 20 mg tabletIndications :Localized edema TAKE 1 TABLET BY MOUTH EVERY DAY 90 tablet 1 12/09/19 25 Active metroNIDAZOLE (METROGEL) 0.75 % gelIndications:Ac ne Rosacea Apply twice daily to rosacea 45 g 1 01/11/20 25 026 Active ferrous sulfate 325 mg (65 mg of elemental iron) tablet Take 1 tablet (65 mg of elemental iron total) by mouth daily with breakfast 90 tablet 1 03/13/[address] (CYMBALTA) 60 mg capsule TAKE 1 CAPSULE BY MOUTH EVERY DAY 90 capsule 04/09/20 25 Active azelastine (ASTELIN) 137 mcg (0.1 %) nasal spray Administer 2 sprays into each nostril 2 (two) times a day Use in each nostril as directed 30 mL 3 04/19/20 25 Active fluticasone propionate (FLONASE) 50 mcg/actuation nasal sprayIndications: Seasonal allergies SPRAY 2 SPRAYS INTO EACH NOSTRIL EVERY DAY 48 mL 1 05/01/[address] (CYMBALTA) 30 mg capsule TAKE 1 CAPSULE BY MOUTH EVERY DAY 90 capsule 1 05/17/20 25 Active Active Problems Problem Noted Date Diagnosed Date BMI 60.0-69.9, adult 04/19/2025 Assessment & Plan (04/19/2025 8:07 AM CDT): Discussed the patient's BMI. The BMI is above average. BMI management plan is completed. BMI Follow-up includes: nutrition counseling, exercise counseling and education provided. Seasonal allergies 05/02/2024 Acute bilateral low back pain without sciatica 0 08/11/2023 Chronic pain syndrome 08/11/2023 Overview (08/11/2023): Continue Cymbalta 90 mg daily as directed Chronic bilateral low back pain with bilateral s ciatica 06/09/2023 Assessment & Plan (06/09/2023 9:42 AM PAYROLL SECRETARY): This is a significant, separately identifiable problem that was evaluated and managed on the same day as the wellness exam Physical exam, annual 04/07/2023 Functional diarrhea 02/08/2023 Acute on chronic respiratory failure with hypoxi a 02/08/2023 Class 3 severe obesity due t o excess calories without serious comorbidity with body mass index (BMI) of 60.0 to 69.9 in adult 11/05/2022 Assessment & Plan (12/08/2023 8:19 AM CDT): Discussed the patient's BMI. The BMI is above average. BMI management plan is completed. BMI Follow-up includes: nutrition counseling, exercise counseling and education provided. Assessment & Plan (08/11/2023 8:47 AM PAYROLL SECRETARY): Discussed the patient's BMI. The BMI is above average. BMI management plan is completed. BMI Follow-up includes: nutrition counseling, exercise counseling and education provided. Excessive hair growth 11/05/2022 Thrush, oral 11/05/2022 [...] 5:30 PM CDT): She has appt with research associate molecular biology pending that she will keep Trigger ring [...] 8:21 PM CDT): Has pending referral to research associate molecular biology that she will keep Will evaluate further [...] 08/01/2021 Assessment & Plan (08/01/2021 9:59 AM PAYROLL SECRETARY): Resume prn torsemide. We discussed if using routinely will need bun/cr and K levels drawn in the next 3-4w. She anticipates 1-2x/week but will let us know if increasing to daily. Leg pain, bilateral 08/01/2021 Assessment & Plan (08/01/2021 9:59 AM PAYROLL SECRETARY): Will evaluate further with US of bilateral legs Elevated antinuclear antibody (RODRIGO) level 2020 Assessment & Plan (10/09/2021 12:09 PM CDT): Will restart cymbalta We reviewed autoimmune labs, will refer to rheumatology Assessment & Plan (08/01/2021 9:57 AM PAYROLL SECRETARY): Has pending lab work for Dr. Bunch that she will complete She reports when she called her insurance she was told that there might be a provider in network for rheumatology in [facility] - will try a different location. Assessment & Plan (06/20/2021 11:43 AM PAYROLL SECRETARY): We reviewed recent labs Will refer to rheum for further evaluation and treatment Pulmonary artery hypertension 06/03/2021 Assessment & Plan (08/01/2021 9:56 AM PAYROLL SECRETARY): Continue care with pulmonology Advised her to reschedule with cardiology Assessment & Plan (06/20/2021 11:43 AM PAYROLL SECRETARY): Continue with hctz daily Assessment & Plan (06/03/2021 7:01 PM PAYROLL SECRETARY): Advised attempts at bp control Will refer to cv for further evaluation and treatment Chronic neck pain 06/03/2021 Assessment & Plan (06/20/2021 11:43 AM PAYROLL SECRETARY): Will refer to closer orthopedist for her commute Assessment & Plan (06/03/2021 7:00 PM PAYROLL SECRETARY): Advised referral to specialist, will help her arrange Cervical radiculopathy 06/03/2021 Assessment & Plan (06/03/2021 7:00 PM PAYROLL SECRETARY): Advised referral, will help her arrange Flu vaccine need 05/01/2021 Episode of recurrent major depressive disorder [...] provided. Assessment & Plan (06/09/2023 9:18 AM PAYROLL SECRETARY): Discussed the patient's BMI. The BMI is [...] provided. Assessment & Plan (08/01/2021 9:57 AM PAYROLL SECRETARY): Obesity is unchanged. Discussed the patient's BMI. The BMI is above average. BMI management plan is completed. BMI Follow-up includes: nutrition counseling, exercise counseling and education provided. Assessment & Plan (06/20/2021 11:43 AM PAYROLL SECRETARY): Obesity is unchanged. Discussed the patient's BMI. [...] 5:31 PM CDT): We reviewed notes from conditioner tender. She is going to call her current oxygen company and order a current supply as she is not certain she can walk down the hallway in the hospital for her 6min walk. She will communicate with the conditioner tender regarding these concerns. Assessment & Plan (01/01/2022 6:43 PM CDT): Continue with oxygen, she reports that she has refills at home. Assessment & Plan (12/03/2021 8:20 PM CDT): Continue care per pulmonology, refill meds as needed Assessment & Plan (10/09/2021 12:08 PM CDT): Continue with care per pulmonology Continue with bpap Assessment & Plan (08/01/2021 9:57 AM PAYROLL SECRETARY): Continue with care per Dr. Bunch Assessment & Plan (06/03/2021 7:00 PM PAYROLL SECRETARY): Continue with care per pulm Assessment & Plan (05/01/2021 11:39 AM CDT): Continue with care per conditioner tender Has pending sleep eval that she will keep rf meds as needed Assessment & Plan (09/25/2020 3:07 PM CDT): Retrieve records from conditioner tender, continue care same at this time. Essential hypertension 09/25/2020 Assessment & Plan (06/03/2021 6:58 PM PAYROLL SECRETARY): Add daily hctz Discontinue inderal Advised monitoring [...] 09/27/2018 Assessment & Plan (06/20/2021 11:44 AM PAYROLL SECRETARY): Will refer to closer orthopedist for her commute Gastroesophageal reflux disease 09/27/2018 Iron deficiency 09/27/2018 Primary osteoarthritis of both knees 09/27/2018 Vitamin D deficiency 09/27/2018 Assessment & Plan (09/25/2020 3:06 PM CDT): Fasting labs entered, will notify patient of results as available Asthma 10/19/2017 11/05/2022 Acute sinusitis 10/19/2017 11/05/2022 Resolved Problems Problem Noted Date Diagnosed Date Resolved Date BMI 60.0-69.9, adult 11/05/2022 023 Assessment & [...] 09/08/2021 Assessment & Plan (08/01/2021 9:58 AM PAYROLL SECRETARY): Due for screening and wants to see research associate molecular biology (her previous MD has left the area). Will refer to Dr. Barreto for further assistance. Mare, right 06/20/2021 01/19/2022 Assessment & Plan (06/20/2021 11:43 AM PAYROLL SECRETARY): Will start on doxycycline Morbid obesity 06/20/2021 01/19/2022 Assessment & Plan (08/01/2021 9:57 AM PAYROLL SECRETARY): Obesity is unchanged. Discussed the patient's BMI. The BMI is above average. BMI management plan is completed. BMI Follow-up includes: nutrition counseling, exercise counseling and education provided. Assessment & Plan (06/20/2021 11:43 AM PAYROLL SECRETARY): Obesity is unchanged. Discussed the patient's BMI. [...] worsening. Assessment & Plan (06/20/2021 11:44 AM PAYROLL SECRETARY): Advised increased fluids, rest F/u in 1w if not improving, sooner if worsening Assessment & Plan (01/13/2021 9:22 AM CDT): She will continue with her nose spray per search developer She will hold the mdp and not [...] provided. Assessment & Plan (06/03/2021 7:00 PM PAYROLL SECRETARY): Obesity is unchanged. Discussed the patient's BMI. [...] Encounters Date Type Department Care Team Description 05/15/2025 Orders Only [facility] [address] [place] [address] Marilyn Augustin NP Hypertension, essential (Primary Dx); Dysuria 05/14/2025 Telephone [facility] [address] [place] [phone] Marilyn Augustin NP Additional Services Or Orders 04/19/2025 8:30 AM CDT Office Visit [address] [place] [phone] Marilyn Augustin NP Cellulitis of right lower extremity (Primary Dx); Flu vaccine need; Class 3 severe obesity due to excess calories without serious comorbidity with body mass index (BMI) of 60.0 to 69.9 in adult; Breast cancer screening by mammogram 04/08/2025 Orders Only [facility] Health Information Management [address] [place] [address] Scanning, Provider 03/22/2025 Orders Only [facility] Health Information Management [address] [place] [address] Marilyn Augustin NP 03/22/2025 Orders Only [address] [place] [phone] ProviderLamar MD 03/12/[address] [place] [phone] Marilyn Augustin NP Med Refill 03/09/2025 Orders Only [address] [place] [phone] Marilyn Augustin NP Anemia, unspecified type (Primary Dx) 03/09/[address] [place] [phone] Marilyn Augustin NP Referral Request from Last 3 Months Immunizations Immunization Administration Dates Next Due Influenza, Quadrivalent, Rec ombinant, Egg Free, Preservative Free, Intramuscular 03/29/2020 Influenza, Quadrivalent, Spl it, Intramuscular 03/30/2019,04/17/2015,04/17/2015 Influenza, Quadrivalent, Spl it, Preservative Free, Intramuscular 06/09/2023,05/01/2021,09/27/2018 Influenza, Trivalent, Preser vative Free, Intramuscular 04/19/2025,05/02/2024,10/16/2014,10/16 Influenza, Unspecified 04/07/2023(Deferr ed: Patient Refused),04/08/2022 Pfizer [...] Tobacco: Never Tobacco Cessation:Counseling Given: Not Answered Alcohol Use Standard Drinks/Week Comments Never 0 [...] on file Legal Sex Female 1:37 AM PAYROLL SECRETARY Gender Identity Not on file Sexual Orientation [...] Sign Reading Time Taken Comments Blood Pressure 130/68 04/19/2025 7:59 AM CDT Pulse 93 04/19/2025 7:59 AM CDT Temperature 36.8 C (98.3 F) 04/19/2025 7:59 AM CDT Respiratory Rate 16 06/09/2023 9:13 AM PAYROLL SECRETARY Oxygen Saturation 93% 04/19/2025 7:59 AM CDT Inhaled Oxygen Concentration - - Weight 153.8 kg (339 lb) 04/19/2025 7:59 AM CDT Height 160 cm (5' 3) 04/19/2025 7:59 AM CDT Body Mass Index 60.05 04/19/2025 7:59 AM CDT Plan of Treatment Health Maintenance Due Date Last Done Comments Cervical Cancer Screening 1972 Hepatitis B Screening 01/14/1990 Zoster Vaccine (1 of 2) 01/14/2022 Breast Cancer Screening-Mammogram 10/10/2022 10/10/2021, 08/27/2021, 05/02/2019 Pneumococcal vaccine <65 (2 of 2 - PCV) 11/06/2022 11/06/2021 Covid-19 Vaccine (6 - 2024-2 6 season) 2025 11/28/2020, 11/26/2020, 11/26/2020, Additional history exists Regular Well Visit/Exam 18-64 11/01/2025, 12/08/2023, 06/09/2023, Additional history exists DTaP/Tdap/Td Vaccine (2 - Td or Tdap) 01/05/2026 01/06/2016 Depression Screening 04/19/2026 04/19/2025, 11/01/2024, 05/02/2024, Additional history exists Colon Cancer Screening-Colonoscopy 03/22/20352024, 03/10/2023 Hepatitis C Screening Completed 01/20/2022 Influenza Vaccine Completed 04/19/2025, , 06/09/2023, Additional history exists Procedures Procedure Name Priority Date/Time Associated Diagnosis Comments SCAN - RADIOLOGY/IMAGING 04/08/2025 HM COLONOSCOPY Routine 03/22/2025 11:58 AM CDT GI - RESULT 03/22/2025 HEPATITIS PANEL, ACUTE Routine 01/20/2022 9:29 AM CDT Encounter for annual routine gynecological examination Screening for STD (sexually transmitted disease) MAMMOGRAPHY Routine 10/10/2021 from Last 3 Months or Most Recently Relevant to Health Maintenance Results * SCAN - RADIOLOGY/IMAGING (04/08/2025) Anatomical Region Laterality Modality Other Provider Scanning Final Result * COLONOSCOPY (03/22/2025 11:58 AM CDT) Scribed Colonoscopy Normal Historical Provider HEALTH MAINTENANCE Edited Result - Final * GI - RESULT (03/22/2025) Anatomical Region Laterality Modality Other Marilyn Augustin NP Final Result * Hepatitis panel, acute (01/20/2022 9:29 AM CDT) Hep A IgM Nonreactive Nonreactive [facility] Comment: Interpretive Data: If Hep A IgM Ab is reported as Equivocal, a new sample should be drawn in two weeks for testing. Current interpretive data was last revised on 19. Hep B core IgM Nonreactive Nonreactive [facility] Comment: Interpretive Data If HepB Core IgM Ab is reported as Equivocal, a new sample should be drawn in two weeks for testing. Current interpretive data was last revised on 19. Hep C Ab Nonreactive Nonreactive [facility] Comment: Interpretive Data Nonreactive: Antibodies to [...] last revised on 2019. HepBsAg Nonreactive Nonreactive [facility] Blood 01/20/2022 9:29 AM CDT 01/20/2022 7:16 PM CDT us Christy Newman NP LAB MICROBIOLOGY - GENERAL ORDER HERVE Final Result [facility] [address] [facility] Department [place] [address] * HM MAMMOGRAPHY (10/10/2021) us Historical Provider HEALTH MAINTENANCE Final Result from Last 3 Months or Most Recently Relevant to Health Maintenance [place] [address] MEDICARE ADVANTAGE Care Teams Corporate Staff Accountant Relationship Specialty Start Date End Date Marilyn Augustin NP [address] [place] [address] PCP - General Internal Medicine 11/05/22
--- OUTSIDE RECORDS SUMMARY | 2025-06-01 08:06 | XMS_ITS | Clinical Summary ---
Author Organization [facility] Jaswinder braswell [facility] Address [address] [place] [address] Care Team Providers Care Sample Sawyer Name Role Phone Unavailable Primary Care Provider Unavailabl e Social History Tobacco Use Types Packs/Day Years Used Date Smoking Tobacco: Never Assessed Comments Unknown Sex and Gender Information Value Date Recorded Sex Assigned at Not on file Legal Sex Female 1:15 PM CDT Gender Identity Not on file Sexual Orientation Not on file Plan of Treatment Upcoming Encounters Date Type Department Care Team (Late st Contact Info) Description 06/20/2025 1:30 PM VISITING PROFESSOR Office Visit [facility] Oncology and Hematology - Narendra [address] [facility] [address] [phone] Gonzales Langford MD [address] [facility] [address] [place] [address] Health Maintenance Due Date Last Done Comments DTAP/TDAP/TD VACCINES (1 - Tdap) 01/14/1991 HEPATITIS B VACCINES (1 of 3 - 19+ 3-dose series) 01/02 HPV/Cotest (21-29) 01/14/1993 CERVICAL CANCER SCREENING 01/14/2002 HPV/Cotest (30-65) 01/14/2002 PAP SMEAR 01/14/2002 BREAST CANCER SCREENING 2012 COLORECTAL SCREENING 01/14/2017 Colorectal Cancer Screening 01/14/2017 FIT-DNA Q 3 years 01/14/2017 FIT/FOBT Q 1 year 01/14/2017 Flex Sig/CT Colonography Q 5 years 01/14/2017 ZOSTER VACCINE (1 of 2) 01/14/2022 INFLUENZA VACCINE (#1) [address] [facility] [id number] [place] [id number]
--- OUTSIDE RECORDS SUMMARY | 2025-06-01 08:06 | XMS_ITS | Encounter Summary ---
Author Organization [facility] Address [address] [place] [address] Care Team Providers Care Scholarship Counselor Name Role Phone Celia Carson PA-C Primary Care Provider + Encounter Details Date Type Department Care Team (Late st Contact Info) Description 12/04/2020 Telephone [facility] Pulmonary, Critical Care and Sleep Medicine [address] [place] [address] Smita Lopez MD [address] OF PULMONARY/[place] [address] Social History Tobacco Use Types Packs/Day Years [...] MyCHart is down. Patient Call Back number: [phone] documented in this encounter Plan of Treatment Not on file documented as of this encounter Visit Diagnoses Not on filedocumented in this encounter Care Teams Scholarship Counselor Relationship Specialty Start Date End Date Celia Carson PA-C PCP - General 12/04/20 documented as of this encounter
--- OUTSIDE RECORDS SUMMARY | 2025-06-01 08:07 | XMS_ITS | Data Portability ---
Author Organization [facility] Address [address] [place] [place] [address] [address] Care Team Providers Care Director Of Advertising Sales Name Role Phone RAJENDRA STAFFORD Primary Care Provider [phone] Assessment No assessment recorded. Plan of Treatment Reminders Order Date Submit Date Provider Last Modified By Organization Details Last Modified Time Details Appointments None recorded. Lab None recorded. Referral None recorded. Procedures None recorded. Surgeries None recorded. Imaging US, pelvis [address] [facility] [address], [place], [address], 19:10:16 US, transvagina l 2024 025 [place] [address], [address], [place], [address], 19:10:16 US, pelvis, complete 2024 025 [facility] [address], [place], [address], 04:59:41 Medication Orders None recorded. Patient TargetsNo targets recorded. Patient InstructionsNo instructions recorded. Reason for Referral None Reported. Results Created Date Observation Date Name Description Value Unit Range Abnormal Flag Note LastModifiedBy Organization Detail LastModifiedTime 12/13/1912/12/2024 US, pelvi s No observ ation record ed. [email or web address] [place] [address], [place], [address], 12/12/2024 13:17:27 12/13/19 25 12/12/2024 US, trans vagin al No observ ation record ed. [email or web address] [place] [address], [place], [address], 12/12/2024 13:17:36 12/14/19 25 12/12/2024 US, pelvi s No observ ation record ed. [email or web address], [place], [address], 01/12/2025 13:27:34 Result Notes None recorded. Procedures Surgical History Date Name Laterality Status Provider Name and Address Organization Details Recorded Time 07/05/19 23 Date of Last Colonoscopy completed [facility] 12/06/2024 10:07:00 07/05/19 12 Tubal Ligation completed [facility] 12/06/2024 10:10:38 07/05/19 12 Endometrial Ablation completed [facility] 12/06/2024 10:10:52 07/05/19 12 operation on accessory sinus completed [facility] 12/06/2024 10:12:05 11/04/18 94 Caesarean Section completed [facility] 12/06/2024 10:11:09 decompression of median nerve completed [facility] 12/06/2024 10:11:36 Imaging Results None recorded. Procedure Notes None recorded. Medical Equipment None Reported. Allergies Allergen ID Allergen Name Allergen Category Reaction Reaction Severity Criticality Documentation Date Start Date Code Code System Note Provider Name and Address Organization Details Recorded Time 03259 nickel environme nt Not available Not available Not available 12/06/[address] [facility] 10:03:31 Medications Name Sig Start Date Stop Date Status Note LastModified by Organization Details LastModified Time torsemide 20 mg tablet TAKE 1 TABLET BY MOUTH EVERY DAY active Not Available Not Available No t Available albuterol sulfate 2.5 mg/3 mL (0.083 %) solution for nebulizatio n INHALE 1 VIAL (2.5 MG) VIA NEBULIZER EVERY 6 - 8 HOURS NEEDED FOR SHORTNESS OF BREATH OR WHEEZING active Not Available Not Available No t Available fluconazole 150 mg tablet TAKE 1 TABLET BY MOUTH NOW THEN REPEAT 72 HOURS LATER 12/06 completed Not Available Not Available Not Available hydrocortis one acetate 25 mg rectal suppository UNWRAP AND INSERT 1 SUPPOSITO RY TWICE A DAY 12/06 completed Not Available Not Available Not Available amitriptyli ne 25 mg tablet TAKE 1 TABLET BY MOUTH ONCE NIGHTLY active Not Available Not Available No t Available omeprazole 20 mg capsule,del ayed release TAKE 2 CAPSULES BY MOUTH DAILY active Not Available Not Available No t Available montelukast 10 mg tablet TAKE 1 TABLET BY MOUTH EVERY DAY active Not Available Not Available No t Available albuterol sulfate HFA 90 mcg/actuati on aerosol inhaler INHALE 2 PUFFS BY MOUTH FOUR TIMES DAILY NEEDED FOR SHORTNESS OF BREATH OR WHEEZING active Not Available Not Available No t Available fluticasone propionate 50 mcg/actuati on nasal spray,suspe nsion SPRAY 2 SPRAYS INTO EACH NOSTRIL EVERY DAY active Not Available Not Available No t Available metronidazo le 0.75 % topical gel APPLY TWICE DAILY TO ROSACEA active Not Available Not Available No t Available amoxicillin 875 mg-potassiu m clavulanate 125 mg tablet TAKE 1 TABLET BY MOUTH TWICE A DAY 12/06 completed Not Available Not Available Not Available duloxetine 30 mg capsule,del ayed release TAKE 1 CAPSULE BY MOUTH EVERY DAY active Not Available Not Available No t Available duloxetine 60 mg capsule,del ayed release TAKE 1 CAPSULE BY MOUTH EVERY DAY active Not Available Not Available No t Available Advair HFA 230 mcg-21 mcg/actuati on aerosol inhaler INHALE 2 PUFFS BY MOUTH TWICE DAILY active Not Available Not Available No t Available Trelegy Ellipta 200 mcg-62.5 mcg-25 mcg powder for inhalation INHALE 1 PUFF INTO THE LUNGS EVERY DAY FOR 30 DAYS active Not Available Not Available No t Available Vitals Date Recorded Body height Body mass index (BMI) Body weight Systolic And Diastolic Provider Name and Address Organization Details Last Updated DateTime 12/06/2024 160.02 cm 58.8 kg/m2 635797.67 g 117/77 mm[Hg] Mary Bright [facility] 12/06/2024 10:03:23 Social History Question Answer Notes LastModified by Organizat ion Details LastModified Time Tobacco Smoking Status Never Smoker Mary Bright null, [facility] 12/06/2024 10:09:00 Are You Blind Or Do You Have Difficulty Seeing? No Information n ot available 12/06/2024 What Is Your Level Of Caffeine Consumption? Moderate Information not available 12/06/2024 In The 14 Days Before Symptom Onset, Have You Had Close Contact With A Laboratory-confirm ed COVID-19 While That Case Was Ill? No Information n ot available 12/06/2024 In The 14 Days Before Symptom Onset, Have You Had Close Contact With A Person Who Is Under Investigation For COVID-19 While That Person Was Ill? No Information not available 12/06/2024 Have You Been To An Area Known To Be High Risk For COVID-19? No Information not available 12/06/2024 Are You Deaf Or Do You Have Serious Difficulty Hearing? No Information not available 12/06/2024 What Type Of Diet Are You Following? DIABETIC Information n ot available 12/06/2024 What Is The Highest Grade Or Level Of School You Have Completed Or The Highest Degree You Have Received? [id number] Information not available 12/06/2024 Are There Any Guns Present In Your Home? No Information not available 12/06/2024 Do You Use Your Seat Belt Or Car Seat Routinely? Yes Information not available 12/06/2024 Are You Sexually Active? No Information not available 12/06/2024 Do You Have Smoke And Carbon Monoxide Detectors In Your Home? Yes Information not available 12/06/2024 Do You Use Sunscreen Routinely? No Information not available 12/06/2024 Do You Have Difficulty Walking Or Climbing Stairs? No Information not available 12/06/2024 Sex: Unknown Functional Status Question Answer Note LastModified by Organizat ion Details LastModified Time Do you use any illicit or recreational drugs? No Information not available 12/06/2024 What is your level of alcohol consumption? None Information not available 12/06/2024 Are you currently employed? No Information not available 12/06/2024 Are you able to walk independently without assistance or assistive devices? YESWOREST Information not available 12/06/2024 Are you able to care for yourself independently? Yes Information not available 12/06/2024 Do you have difficulty dressing, bathing, grooming, or toileting? No Information not available 12/06/2024 What is your exercise level? None Information not available 12/06/2024 Mental Status Question Answer Note LastModified by Organization D etails LastModified Time Do you feel stressed (tense, restless, nervous, or anxious, or unable to sleep at night)? [id number] Information not available 12/06/2024 Family History Relationship Description Onset Age of this Age Resolved Age Notes LastModified by Organization Details LastModified Time Brother Diabetes mellitus Not available 2024 10:08:16 Father Malignant neoplasm of esophagus [email or web address] Not available 01/02 16:30:37 Medical History Condition Response Allergies (Food, seasonal, environmental ) N Other N Breast Cancer N Drug/Latex Allergies/Reactions N Blood Transfusion N Dermatologic Disorders N Lung Disease Y Defects or Inherited Disease N Breast Problem N Gestational Diabetes N Hematologic disorders N Anesthesia Complications N History of STI N Deep Vein Thrombosis N Polycystic ovary syndrome N Anxiety Disorder Y Autoimmune disease N Arthritis N Infertility N Polyps N Acid Reflux (GERD) Y History of abnormal pap Y Cancer N Stroke N Varicosities N Neurologic/Epilepsy N Endometriosis N High Cholesterol N Headaches N Fibromyalgia N Kidney Disease N Heart Problems N Kidney or Bladder Problems N Thyroid Problems N GI Problems N Eating Disorder N Anemia N Art (IVF or FET) N Psychiatric Illness N Ovarian Cancer N Diabetes N Pulmonary (TB, Asthma) N Hepatitis/Liver Disease N No Past Medical History N Eczema N Urinary Tract Infection N Abuse/Domestic Violence N Asthma Y Trauma/Violence N Depression/ depression N Heart Disease N Pre-Eclampsia N Hypertension Y Osteoporosis N Thrombophilias N Gynecological History Statement/Question Response Abnormal Pap Y Date of Last Mammogram Date of LMP 07/05/2011 On BCP's at Conception? N Was last menstrual period normal N STIs/STDs N HPV Vaccine N Current Control Method Tubal Ligat ion Age at First Child 23 Are cycles usually normal N Date of Last Colonoscopy 07/05/2022 Sexually Active? N Menses Monthly N Age of first menstrual cycle 14 Date of Last Pap Smear Sexual Problems? N LMP Unknown Obstetrics History GPAL:G 1 P 0 0 0 1 Type Value Living 1 Total 1 Past Encounters Encounter ID Performer Location Encounter Start Date Encounter Closed Date Diagnosis/Indication Diagnosis SNOMED-CT Code Diagnosis ICD10 Code Diagnosis IMO Codes Diagnosis Note [id number] GIOVANNI Michael [place] [address] [address] 12/06/2024 09:33:21 12/06/2024 11:48:11 Uterine leiomyoma 00776627 D25.9 [id number] Detailed health hx obtained and reviewed todayRec updated pelvic u/s for further evaluation of uterine fibroidssh e will RTC for pelvic u/s and WWE/f/u Time spent in visit is a total of 25 mins with at least 50% of visit consisting of counseling and review of plan of care. [id number] Francisco Arenas MD [place] [address] [address] 12/12/2024 09:30:09 12/12/2024 10:54:28 Uterine leiomyoma 82387594 D25.9 R14.0 [id number] Francisco Arenas MD [place] [address] [address] 01/17/2025 16:29:53 01/17/2025 17:43:19 Rectal hemorrhage [id number] K62.5 [id number] this patient is a 55-year-ol d female presents for ultrasound follow-up. She has had some problems with some vague pelvic discomfort , she has some GI issues,. She denies any strict gynecologi c symptoms. She denies any vaginal bleeding or uterine cramping or pain. No pain with intercours e. She has 2 small fluid collection s in the cornua of her intrauteri ne cavity. This is not unusual given the fact that she has endometria l ablation. Does not appear to be blood. We agreed to observe her symptoms. She has no gynecologi c issues that need to be addressed at this time. I spent over 20 minutes on her care in total. Health Concerns Section Related Observation LastModified by Organization Detai ls LastModified Time None Recorded Concern Status LastModified by Organization Details LastModified Time None Recorded Advance Directives Directive None Recorded Payers Insurance Date Sequence Insurance Name Policy Number Policy Fang Covered Member ID Fang Member ID Guarantor Name 03/01/2025 1 [facility] (MEDICARE REPLACEMENT/A DVANTAGE - PPO) [id number] Angie Leos [id number] Angie Leos 03/06/2025 2 [place]: [facility] [facility] [employer] Angie Leos [id number] Angie Leos Notes Date Note Type Note Provider Name and Address Organization Details Recorded Time 12/06/2024 text/html 54yoPresents for evaluation of uterine fibroidsShe had a CT scan done 10/31/24 d/t rectal bleeding and abdominal painCT scan showed small uterine fibroidsshe is following with GI for rectal bleeding and scheduled for an updated colonoscopyshe does experience bilateral pelvic/abdominal pain at times, lower back pains, and bloating. Not SA x2 yrs but previously did have pain with IC She has a h/o BTL and endometrial ablation in 2011, no periods since ablationlast pap smear 3-4 years ago, wnl per pt neg urinary symptomsneg n/v/fneg vaginal d/c, odors, itching GIOVANNI Michael [address], [place], [address], [place] [facility] 12/06/2024 11:45:42 01/17/2025 text/html this patient is a 55-year-old female presents for ultrasound follow-up. She has had some problems with some vague pelvic discomfort, she has some GI issues,. She denies any strict gynecologic symptoms. She denies any vaginal bleeding or uterine cramping or pain. No pain with intercourse. She has 2 small fluid collections in the cornua of her intrauterine cavity. This is not unusual given the fact that she has endometrial ablation. Does not appear to be blood. We agreed to observe her symptoms. She has no gynecologic issues that need to be addressed at this time. I spent over 20 minutes on her care in total. Francisco Arenas MD [address], [place], [address], [facility] 01/17/2025 17:29:44 OBGyn Episode Ob Episode Information Episode Created Date Number of Fetuses Patient Bloodtype Patient rh Status Prepregnancy Weight lbs Domestic Partner Domestic Partner Phone Father Name Moth Proofer Status 12/07/19 25 1 CLOSED Fetus Data First Name Last Name Admitted to NICU Weight (g) Sex Living Outcome Pediatric Complications Fetus ID Race Codes Race Delivery Type 3912.23 1 F Full Term [id number] Primary Amol Calculation Initial Amol Date Initial Exam Date Initial Exam Provider Initial Ultrasound Date Last Menstrual Period Date Ultra Sound Weeks Gestation 0 Eighteen To Twenty Week Amol Update Ultra Sound Date Fundal Height At Umbil Quickening Date Ultra Sound Latest Weeks Gestation Final Amol Confirmed By Final Amol Confirmed Date Final Amol Date Ultra Sound Latest Days Gestation 0 0 Menstrual History Last Menstrual Date Menses Monthly On Bcp Conception Prior Menses Frequency Hcg Plus Date Menarche Onset Age Delivery Information Delivery Date Delivery Type Labor Anesthesia Weeks Gestation Incision Type Labor Labor Length Hrs Delivered By Post Complications Tubal Sterilization Discharge Date Comments 4 40 Discharge Information Feeding Method Contraceptive Method Maternal HG B and HCT Levels
--- OUTSIDE RECORDS SUMMARY | 2025-06-01 08:07 | XMS_ITS | Encounter Summary ---
Author Organization [facility] Address [address] [place] [address] Care Team Providers Care Design Engineering Technician Name Role Phone Doreen Mae APRN-BANDAR Primary Care Provider + Celia Carson PA-C Primary Care Provider + Reason for Visit * Reason Onset Date Comments MEDICATION REFILL 03/28/2019 Encounter Details Date Type Department Care Team (Late st Contact Info) Description 03/28/2019 Refill [facility] General Internal Medicine [address] [place] [address] Doreen Mae, MASTER CONTROL ENGINEER-SCHOOL MANAGER [address] OF [facility] [place] [place] [address] MEDICATION REFILL Social History Tobacco Use Types [...] disorder documented in this encounter Care Teams Design Engineering Technician Relationship Specialty Start Date End Date Doreen Mae APRN-CNP [facility] [place] [address] PCP - General Nurse Practitioner 09/27/18 12/03/20 Celia Carson PA-C [facility] [place] [address] PCP - General 12/04/20 documented as of this encounter
--- OUTSIDE RECORDS SUMMARY | 2025-06-01 08:07 | XMS_ITS | Clinical Summary ---
Author Organization [facility] Address [address] [place] [address] Care Team Providers Care Carbon Paper Coating Machine Setter Name Role Phone Unavailable Primary Care Provider [...] 2 - Td or Tdap) 01/05/2026 01/06/2016 Hepatitis A Vaccines Aged Out No long er eligible based on patient's age to complete this topic Meningococcal B Vaccine Aged Out No l onger eligible based on patient's age to complete this topic Meningococcal Vaccine Aged Out No yesi bisi eligible based on patient's age to complete this topic RSV Immunizations Under 20 Months Aged Out No longer eligible b ased on patient's age to complete this topic Insurance
--- OUTSIDE RECORDS SUMMARY | 2025-06-01 08:07 | XMS_ITS | Clinical Summary ---
Author Organization [facility] Address [address] [facility] [place] [address] Care Team Providers Care Lead Python Developer Name Role Phone Celia Carson PA-C Primary Care Provider + Source Comments [facility],non-owned Affiliates and Associated Physician Practices is amultiple site organization consisting of ambulatory clinics and hospital sitesin [place], [place], [place] and [place]. This disclosure is being madepursuant to the Care Everywhere program and may not contain all information available regarding this patient. Last updated 18.[facility] Allergies Active Allergy Reactions Criticality Noted Date [...] unspecified whether complicated, unspecified whether persistent (HCC) [place] 2 (two) sprays into each nostril once [...] Comments Blood Pressure 140/84 07/26/2020 10:47 AM [facility] Pulse 106 05/28/2020 11:11 AM [facility] Temperature 36.1 C (97 F) 07/26/2020 10:47 AM [facility] Respiratory Rate 20 04/19/2020 11:35 AM CDT Oxygen Saturation 99% 07/26/2020 10:47 AM [facility] Inhaled Oxygen Concentration - - Weight 145.2 kg (320 lb) 07/26/2020 10:47 AM [facility] Height 160 cm (5' 3) 07/26/2020 10:47 AM [facility] Body Mass Index 56.69 07/26/2020 10:47 AM [facility] Plan of Treatment Health Maintenance Due Date [...] 50+ (1 of 2 - PCV) 01/14/1991 Cervical Cancer Screening 01/14/1993 PAP SMEAR 01/14/1993 PAP with HPV 01/14/2002 MAMMOGRAM 05/02/2021 05/02/2019 ZOSTER VACCINE (1 of 2) 01/14/2022 LIPID TESTING 05/30/2024 05/30/2019, 06/08/2018 DEPRESSION SCREENING 07/05/2024 MEDICARE AWV CALENDAR YEAR 2024 COVID-19 VACCINE (3 - season) 2025 11/26/2020, 11/07/2020 INFLUENZA VACCINE (#1) [...] Comments LIPID PROFILE Routine 05/30/2019 2:35 PM [facility] Class 3 severe obesity with serious comorbidity and body mass index (BMI) of 50.0 to 59.9 in adult, unspecified obesity type MAMMO BILAT SCREENING Routine 05/02/2019 2:42 PM CDT Healthcare maintenance from Last 3 Months or Most Recently Relevant to Health Maintenance Results * LIPID PROFILE (05/30/2019 2:35 PM [facility]) Cholesterol Total 141 <200 mg/dL 05/30/2019 3:21 PM [facility] HDL 58 >40 mg/dL 05/30/2019 3:21 PM [facility] Comment: ATP III Classification of HDL Cholesterol: <40 mg/dL: Considered a major risk factor. >60 mg/dL: Considered a negative risk factor. LDL Calculated 72 <100 mg/dL 05/30/2019 3:21 PM [facility] Comment: ATP III Classification of LDL Cholesterol: <100 mg/dL: Optimal 100 - 129 mg/dL: Near Optimal/Above Optimal 130 - 159 mg/dL: Borderline High 160 - 189 mg/dL: High >190 mg/dL: Very High Triglycerides 53 <150 mg/dL 05/30/2019 3:21 PM [facility] Comment: ATP III Classification of Triglycerides: <150 mg/dL: Normal 150 - 199 mg/dL: Borderline High 200 - 400 mg/dL: High >500 mg/dL: Very High Blood BLOOD SPECIMEN / Unknown Lab Venipuncture / Unknown 05/30/2019 2:35 PM [facility] 05/30/2019 2:56 PM [facility] Doreen Mae APRN-SOFT TILE SETTER LAB - CHEMISTRY ORDERABL ES Final Result [address] [phone] * MAMMO BILAT SCREENING (05/02/2019 2:42 PM CDT) Anatomical Region Laterality Modality Breast Bilateral Mammography 05/24/2019 10:3 5 AM [facility] Impressions 05/24/2019 10:39 AM [facility] IMPRESSION: No mammographic evidence of malignancy. ASSESSMENT: BI-RADS Category 1: Negative mammogram. RECOMMENDATION: Bilateral screening mammogram in one year. This report was electronically signed by URSULA DOZIER M.D. on 05/24/2019 10:39 AM . Narrative 05/24/2019 10:39 AM [facility] SCREENING MAMMOGRAM DATE: 05/02/2019 COMPARISON: Prior mammograms just received from [facility] dated 01/25/2017 and 12/10/2010. 2017 report not [...] appearance compared with the prior study. Doreen PEREIRA MAMMO ORDERABLES Final R esult from Last 3 Months or Most Recently Relevant to Health Maintenance Insurance MEDICAID [facility] MANAGED MEDICARE ADV Care Teams Lead Python Developer Relationship Specialty Start Date End Date Celia Carson PA-C PCP - General 12/04/20
--- OUTSIDE RECORDS SUMMARY | 2025-06-01 08:07 | XMS_ITS | Encounter Summary ---
Author Organization [facility] Address [address] [place] [address] Care Team Providers Care Diver Pumper Name Role Phone Doreen Mae APRN-BANDAR Primary Care Provider + Celia Carson PA-C Primary Care Provider + Reason for Visit * Reason Onset Date Comments MEDICATION REFILL 01/23/2019 MEDICATION REFILL 02/20/2019 Encounter Details Date Type Department Care Team (Late st Contact Info) Description 01/23/2019 Refill [facility] General Internal Medicine [address] [facility] [address] [place] [address] Doreen Mae, SECONDARY SOCIAL STUDIES TEACHER-TOOL SETTER APPRENTICE [address] OF [facility] [place] [address] MEDICATION REFILL; MEDICATION REFILL Social History Tobacco [...] encounter Miscellaneous Notes * Telephone Encounter - JinaprettyrenYumi - 01/23/2019 10:25 AM CDT Refill request sent per protocol to provider PAMELLA 11-29-18 NOV 01-24-19 documented in this encounter Plan of Treatment Not on file documented as of this encounter Visit Diagnoses Diagnosis Vitamin D deficiency documented in this encounter Care Teams Diver Pumper Relationship Specialty Start Date End Date Doreen Mae APRN-BANDAR [address] [place] [address] PCP - General Nurse Practitioner 09/27/18 12/03/20 Celia Carson PA-C [address] [place] [address] PCP - General 12/04/20 documented as of this encounter
--- OUTSIDE RECORDS SUMMARY | 2025-06-01 08:07 | XMS_ITS | Encounter Summary ---
Author Organization [facility] Address [address] [place] [address] Care Team Providers Care Pharmacy Messenger Name Role Phone Doreen Mae APRN-BANDAR Primary Care Provider + Celia Carson PA-C Primary Care Provider + Reason for Visit * Reason Onset Date Comments MEDICATION REFILL 02/27/2019 MEDICATION REFILL 03/28/2019 Encounter Details Date Type Department Care Team (Late st Contact Info) Description 02/27/2019 Refill [facility] General Internal Medicine [address] [facility] [address] [place] [address] Doreen Mae, STEEL WORKER-SPORTS BOOKMAKER [address] OF [employer] [place] [address] MEDICATION REFILL; MEDICATION REFILL Social History Tobacco [...] leg documented in this encounter Care Teams Pharmacy Messenger Relationship Specialty Start Date End Date Doreen Mae APRN-SPORTS BOOKMAKER [address] [place] [address] PCP - General Nurse Practitioner 09/27/18 12/03/20 Celia Carson PA-C [address] [place] [address] PCP - General 12/04/20 documented as of this encounter
--- OUTSIDE RECORDS SUMMARY | 2025-06-01 08:07 | XMS_ITS | Encounter Summary ---
Author Organization [facility] Address [address] [place] [address] Care Team Providers Care Wire Setter Name Role Phone Doreen Mae APRN-NURSE ESTHETICIAN Primary Care Provider + Celia Carson PA-C Primary Care Provider + Encounter Details Date Type Department Care Team (Late st Contact Info) Description 03/29/2019 Telephone [facility] [address] [place] [address] Doreen Mae, LINUX UNIX SYSTEM ADMINISTRATOR-NURSE ESTHETICIAN [address] [place] [address] Social History Tobacco Use Types Packs/Day Years [...] beforeher appointment tomorrow. Patient Call Back number: [phone] documented in this encounter Plan of Treatment Not on file documented as of this encounter Visit Diagnoses Not on filedocumented in this encounter Care Teams Wire Setter Relationship Specialty Start Date End Date Doreen Mae APRN-CNP [address] [place] [address] PCP - General Nurse Practitioner 09/27/18 12/03/20 Celia Carson PA-C [address] [place] [address] PCP - General 12/04/20 documented as of this encounter
--- OUTSIDE RECORDS SUMMARY | 2025-06-01 08:07 | XMS_ITS | Encounter Summary ---
Author Organization [facility] Address [address] [facility] [place] [address] Care Team Providers Care Child Support Specialist Name Role Phone Doreen Mae APRN-BANDAR Primary Care Provider + Celia Carson PA-C Primary Care Provider + Reason for Visit * Reason Onset Date Comments MEDICATION REFILL 02/20/2019 MEDICATION REFILL 02/27/2019 Encounter Details Date Type Department Care Team (Late st Contact Info) Description 02/20/2019 Refill [facility] General Internal Medicine [address] [facility] [address] [place] [address] Doreen Mae, COMPO CONVEYOR OPERATOR-SUPERVISORY IT SPECIALIST [address] OF [facility] [place] [address] MEDICATION REFILL; MEDICATION REFILL Social History Tobacco [...] disorder documented in this encounter Care Teams Child Support Specialist Relationship Specialty Start Date End Date Doreen Mae APRN-SUPERVISORY IT SPECIALIST [address] [place] [address] PCP - General Nurse Practitioner 09/27/18 12/03/20 Celia Carson PA-C [address] [place] [address] PCP - General 12/04/20 documented as of this encounter
--- OUTSIDE RECORDS SUMMARY | 2025-06-01 08:07 | XMS_ITS | Patient Health Record ---
Author Organization [facility] [employer] [place] ([address]) Address [address] [place] [address] Care Team Providers Care Actor Understudy Name Role Phone Higinio Mcpherson Unavailable [phone] Michael Gleason Unavailable Unavailable Yannick Glasgow Unavailable [phone] Amy Chopra Unavailable [phone] Ifeoma Ruiz Unavailable [phone] Mark Ellsworth Unavailable [phone] Allergies Allergen (clinical drug ingredient) Drug/Non Drug Allergy documented on EMR Reaction Allergy Type Onset Date Status nickel Nickel other reaction Allergy Activ e Results Component Value Reference Range Notes Spirometry Reviewed date:05/17/2025 12:42:34 PM Interpretation:Abnormal - FEV1 and FVC significantly reduced Performing Lab: Notes/Report: Abnormal - FEV1 and FVC significantly reduced SpiroPreBronchodilator_FVC 1.59 SpiroPostBronchodilator_FEF25_75 0 SpiroPreBronchodilator_FEF25_75 0.67 SpiroPreBronchodilator_FEV1 1.1 SpiroPrecentPredictionPost_FEF25_75 0 SpiroPrecentPredictionPost_FEV1 0 SpiroPrecentPredictionPost_FEV1_OVER_FVC 0 SpiroPrecentPredictionPost_FVC 0 SpiroPrecentPredictionPre_FEF25_75 24.7 SpiroPrecentPredictionPre_FEV1 43.3 SpiroPrecentPredictionPre_FEV1_OVER_FVC 85.4 SpiroPrecentPredictionPre_FVC 51 SpiroPredicted_FEF25_75 2.71 SpiroPreBronchodilator_FEV1_OVER_FVC 69.07 SpiroPreBronchodilator_PEF 3.02 SpiroPostBronchodilator_FVC 0 SpiroPostBronchodilator_FEV1 0 SpiroPostBronchodilator_FEV1_OVER_FVC 0 SpiroPostBronchodilator_PEF 0 SpiroPredicted_FVC 3.12 SpiroPredicted_FEV1 2.54 SpiroPredicted_FEV1_OVER_FVC 80.9 SpiroPredicted_PEF 5.78 Reason For Referral No Information Medications Medication SIG (Take, Route, Frequency, Duration) Notes Start Date End Date Status Torsemide 20 MG 1 tab(s) orally once a day Active Baclofen 10 MG 1 tab(s) orally 3 times a day As needed Active Omeprazole 40 MG 1 cap(s) orally once a day Active EpiPen 2-Leela 0.3 MG/0.3ML as directed intramuscularly once; Duration: 30 days 4 Active Fluticasone Propionate 50 MCG/ACT 2 spray(s) in each nostril twice a day; Duration: 30 days Active Amoxicillin-Pot Clavulanate 875-125 MG Oral; Duration: 7 Days Not-Taking Cetirizine HCl 10 MG 1 tab(s) orally once a day; Duration: 30 days Active Amoxicillin-Pot Clavulanate 875-125 MG Oral; Duration: 7 Days Not-Taking Fluconazole 150 MG 1 tablet Orally once then another 72 hours later; Duration: 2 days Active D3-50 1250 mcg 1 cap(s) orally once a week; Duration: 60 days Not-Taking TEZSPIRE PRE-FILLED PEN ekko 210 mg/1.91 mL as directed subcutaneously every 4 weeks Not-Taking D3-50 1250 MCG 1 CAP(S) ORALLY ONCE A WEEK; Duration: 60 DAYS *Please review and pick correct strength-formul ation from [employer] options. If intended option is not shown, discontinue and re-order from Quick Search* 4 Not-Taking Pneumovax 23 - 0.5 ML INTRAMUSCULARLY ONCE; Duration: 1 DOSE(S) *Please review and pick correct strength-formul ation from [employer] options. If intended option is not shown, discontinue and re-order from Quick Search* 04/24/202 4 Not-Taking Azelastine HCl 137 MCG/SPRAY 2 spray(s) intranasally 2 times a day Not-Taking Fluticasone Propionate 50 MCG/ACT 1 spray(s) in each nostril once a day Not-Taking Budesonide-Formoterol Fumarate 160-4.5 MCG/ACT 2 puff(s) inhaled 2 times a day Not-Taking Mupirocin 2 % 1 sara applied topically 3 times a day Not-Taking MONTELUKAST 10 mg 1 tab(s) orally once a day Active SPIRIVA RESPIMAT 1.25 mcg/inh 2 puff(s) inhaled once a day Active ADVAIR HFA 230 mcg-21 mcg 2 puff(s) inhaled 2 times a day Active NASAL WASHES N/A as directed intranasally as needed; Duration: 30 days Active AZELASTINE NASAL 137 mcg/inh 2 spray(s) intranasally 2 times a day; Duration: 30 days Active FLUTICASONE NASAL 50 mcg/inh 2 spray(s) in each nostril twice a day; Duration: 30 days Active CETIRIZINE 10 mg 1 tab(s) orally once a day; Duration: 30 days Active Symbicort 160-4.5 MCG/ACT 2 puff(s) inhaled 2 times a day Not-Taking Azelastine HCl 137 MCG/SPRAY 2 spray(s) intranasally 2 times a day; Duration: 30 days Not-Taking TORSEMIDE 20 mg 1 tab(s) orally once a day Not-Taking BACLOFEN 10 mg 1 tab(s) orally 3 times a day Not-Taking HYDROCHLOROTHIAZIDE 12.5 mg 1 cap(s) orally once a day Not-Taking AZELASTINE NASAL 137 mcg/inh 2 spray(s) intranasally 2 times a day Not-Taking FLUTICASONE NASAL 50 mcg/inh 1 spray(s) in each nostril once a day Not-Taking BUSPIRONE 10 mg 1 tab(s) orally 2 times a day Not-Taking BUDESONIDE-FORMOTEROL 160 mcg-4.5 mcg/inh 2 puff(s) inhaled 2 times a day Not-Taking OMEPRAZOLE 40 mg 1 cap(s) orally once a day Not-Taking MUPIROCIN TOPICAL 2% 1 sara applied topically 3 times a day Not-Taking FERROUS SULFATE Not- Taking SYMBICORT 160 mcg-4.5 mcg/inh 2 puff(s) inhaled 2 times a day Not-Taking EPIPEN 2-LEELA 0.3 mg as directed intramuscularly once; Duration: 30 days 4 Not-Taking AZELASTINE NASAL 137 mcg/inh 2 spray(s) intranasally 2 times a day; Duration: 30 day(s) 4 Not-Taking FLUTICASONE NASAL 50 mcg/inh 2 spray(s) in each nostril BID; Duration: 30 day(s) 4 Not-Taking CETIRIZINE 10 mg 1 tab(s) orally once a day; Duration: 30 days 4 Not-Taking ACTHIB (HIB) - 0.5 mL intramuscularly once; Duration: 1 dose(s) Not-Taking PNEUMOVAX 23 - 0.5 mL intramuscularly once; Duration: 1 dose(s) Not-Taking busPIRone HCl 10 MG 1 tab(s) orally 2 times a day Not-Taking Montelukast Sodium 10 MG 1 tab(s) orally once a day Not-Taking Spiriva Respimat 1.25 MCG/ACT 2 puff(s) inhaled once a day Not-Taking Advair HFA 230 MCG-21 MCG 2 PUFF(S) INHALED 2 TIMES A DAY *Please review and pick correct strength-formul ation from [employer] options. If intended option is not shown, discontinue and re-order from Quick Search* Not-Taking Amoxicillin-Pot Clavulanate 875-125 MG 1 tablet Orally every 12 hrs; Duration: 10 days Not-Taking ALBUTEROL 90 mcg/inh 2 puff(s) inhaled every 6 hours Not-Taking hydroCHLOROthiazide 12.5 MG 1 cap(s) orally once a day Not-Taking Ferrous Sulfate *Please review and pick correct strength-formul ation from [employer] options. If intended option is not shown, discontinue and re-order from Quick Search* Not-Taking Albuterol Sulfate HFA 108 (90 Base) MCG/ACT 2 puff(s) inhaled every 6 hours; Duration: 30 days Active Trelegy Ellipta 200-62.5-25 MCG/ACT USE 1 INHALATION BY MOUTH ONCE DAILY; Duration: 90 Active Amitriptyline HCl 25 MG TAKE 1 TABLET BY MOUTH ONCE NIGHTLY Oral; Duration: 90 Days Active Vitamin D3 125 MCG (5000 UT) 1 capsule Orally Once a day; Duration: 30 days Active Tezspire 210 MG/1.91ML as directed Subcutaneous once; Duration: 28 days Active Trelegy Ellipta 200-62.5-25 MCG/ACT 1 puff Inhalation Once a day; Duration: 30 days Active Albuterol Sulfate HFA 108 (90 Base) MCG/ACT 2 puff(s) inhaled every 6 hours; Duration: 30 days As needed Active Social History Tobacco Use: Social History Observation Description Date Details (start date - stop date) Never Smoker NA - NA Sex Assigned At : Social History Observation Description Sex Assigned At Female Tobacco Control (Standard) Question Answer Notes Tobacco use: Nonsmoker Problems Problem Type SNOMED Code ICD Code Onset Dates Problem Status W/U Status Risk Notes Problem Vitamin D deficiency (99985928) Vitamin D deficiency, unspecified (E55.9) Active confirmed Problem Chronic allergic conjunctivitis (59377463) Other chronic allergic conjunctivitis (H10.45) Active confirmed Problem Allergic rhinitis caused by pollen (disorder) (33676890) Allergic rhinitis due to pollen (J30.1) Active confirmed Problem Allergic rhinitis (51854008) Other allergic rhinitis (J30.89) Active confirmed Problem Uncomplicated severe persistent asthma (342245523) Severe persistent asthma, uncomplicated (J45.50) Active confirmed Problem Allergic rhinitis caused by animal hair and dander (913713139056143) Allergic rhinitis due to animal (cat) (dog) hair and dander (J30.81) Active confirmed Problem Chronic sinusitis (33972067) Chronic sinusitis, unspecified (J32.9) Active confirmed Problem Essential hypertension (44952856) Essential (primary) hypertension (I10) Active confirmed Vital Signs Respiratory Rate 17 /min 12/21/2024 Blood pressure diastolic 80 mm Hg 05/17/2025 Oximetry 99 % 05/17/2025 Height 63 in 05/17/2025 Blood pressure systolic 131 mm Hg 05/17/2025 Weight 343.4 lbs 05/17/2025 BMI 60.82 kg/m2 05/17/2025 Encounters Encounter Location Date Provider Diagnosis [facility] [address] [facility] [address] [place] [phone] 05/17/2025 Amy Chopra Allergic rhinitis du e to pollen J30.1 ; Severe persistent asthma, uncomplicated J45.50 ; Allergic rhinitis due to animal (cat) (dog) hair and dander J30.81 ; Other allergic rhinitis J30.89 ; Other chronic allergic conjunctivitis H10.45 ; Vitamin D deficiency, unspecified E55.9 ; Chronic sinusitis, unspecified J32.9 and Essential (primary) hypertension I10 [facility] [address] [place] [phone] 01/18/2025 Amy Chopra Allergic rhinitis du e to pollen J30.1 ; Severe persistent asthma, uncomplicated J45.50 ; Allergic rhinitis due to animal (cat) (dog) hair and dander J30.81 ; Other allergic rhinitis J30.89 ; Other chronic allergic conjunctivitis H10.45 ; Vitamin D deficiency, unspecified E55.9 ; Chronic sinusitis, unspecified J32.9 and Essential (primary) hypertension I10 [facility] [address] [place] [phone] 08/29/2024 Yannick Ugofani Allergic rhinitis du e to pollen J30.1 ; Severe persistent asthma, uncomplicated J45.50 ; Allergic rhinitis due to animal (cat) (dog) hair and dander J30.81 ; Other allergic rhinitis J30.89 ; Other chronic allergic conjunctivitis H10.45 ; Vitamin D deficiency, unspecified E55.9 ; Essential (primary) hypertension I10 and Chronic sinusitis, unspecified J32.9 [facility] [address] [place] [phone] 03/08/2025 Higinio Mcpherson Severe persistent asthma, uncomplicated J45.[address] [address] 12/21/2024 Higinio Mcpherson Severe persistent asthma, uncomplicated J45.[address] [phone] 11/09/2024 Higinio Mcpherson Severe persistent asthma, uncomplicated J45.[address] [address] 12/14/2024 Higinio Mcpherson [address] [address] 05/17/2025 Higinio Mcpherson [facility] [address] [place] [address] 04/06/2025 Higinio Mcpherson [facility] [address] [place] [phone] 01/18/2025 Amy Chopra [facility] [address] [place] [address] 11/08/2024 Ifeoma Samuelcarey Severe persistent asthma, uncomplicated J45.50 [facility] [address] [place] [address] 08/09/2024 Yannick Glasgow [facility] [address] [place] [phone] 06/19/2024 Yannick Glasgow Assessments Encounter Date Diagnosis (ICD [...] 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 At the time she was experiencing SOB [...] has since switched to Dr. Gleason for ilan who does not prescribe Tezspire. She is now managed by Dr. Archer, though may be transferring care. ACT 15 today, likely due to 6 weeks behind on Tezspire dosing.Patient has been inconsistent with Tezspire dosing majority of 2024. OSMAR use 1-2 times per day, though cannot identify if she is SOB due to her asthma or her anemia. Lungs CTA, no evidence of crackles, wheezing. - Reports recent CT and Chest Xray that were fine. Records from Dr. Archer to be requested. - Spirometryperformed today showing severe obstruction. FVC decreased by 450cc and FEV1 decreased by 350cc compared to 07/2023 spirometry). - Given severe prior history, would highly advised continued observation in office after dosing. - Continue Trelegy and LTRA - Continue use of OSMAR with spacer. - Consider SCIT as above. - Tezspire tolerated today without issue. Discussed at length the importance of compliance with the medication regimen and Q4 week dosing as patient continues to be inconsistent. - Return in 4 weeks for Tezspire dosing and E&M 05/17/2025 Allergic rhinitis due to pollen (ICD-10 - [...] moment. - Continue medications as listed above. - FEV1 1.10L today. 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 At the time she was experiencing SOB [...] 4 weeks for Tezspire dosing and E&M 12/21/2024 Severe persistent asthma, uncomplicated (ICD-10 - J45.50) 11/09/2024 Severe persistent asthma, uncomplicated (ICD-10 - J45.50) 11/08/2024 Severe persistent asthma, uncomplicated (ICD-10 - J45.50) 01/18/2025 Allergic rhinitis due to pollen (ICD-10 [...] as an adjunctive treatment to current regimen 05/17/2025 Allergic rhinitis due to animal (cat) (dog) [...] as an adjunctive treatment to current regimen 05/17/2025 Other allergic rhinitis (ICD-10 - J30.89) Follow allergen avoidance, meds and consider SCIT as an adjunctive treatment to current regimen 01/18/2025 Other allergic rhinitis (ICD-10 - J30.89) Follow allergen avoidance, meds and consider SCIT as an adjunctive treatment to current regimen 01/18/2025 Other chronic allergic conjunctivitis (ICD-10 - H10.45) Given ocular signs and symptoms I encouraged allergy avoidance measures and meds as above. If symptoms persist, consider adding additional medications including intraocular antihistamine/mast cell stabilizer, PRN and consider SCIT as an adjunctive measure 05/17/2025 Other chronic allergic conjunctivitis (ICD-10 - H10.45) Given ocular signs and symptoms I encouraged allergy avoidance measures and meds as above. If symptoms persist, consider adding additional medications including intraocular antihistamine/mast cell stabilizer, PRN and consider SCIT as an adjunctive measure 08/29/2024 Other chronic allergic conjunctivitis (ICD-10 - H10.45) Given ocular signs and symptoms I encouraged allergy avoidance measures and meds as above. If symptoms persist, consider adding additional medications including intraocular antihistamine/mast cell stabilizer, PRN and consider SCIT as an adjunctive measure 08/29/2024 Vitamin D deficiency, unspecified (ICD-10 - E55.9) She has since finished 50K IU weekly. Plan to start 5K daily 05/17/2025 Vitamin D deficiency, unspecified (ICD-10 - E55.9) Previously finished 50K IU weekly. Plan to start 5K daily - Will obtain repeat Vitamin D level at this time with PIDD workup. Did not have labs obtained after last visit. Instructed to have them obtained. Labs printed and orders given to patient. 01/18/2025 Vitamin D deficiency, unspecified (ICD-10 - E55.9) She has since finished 50K IU weekly. Plan to start 5K daily - Will obtain repeat Vitamin D level at this time with PIDD workup. 01/18/2025 Chronic sinusitis, unspecified (ICD-10 - J32.9) [...] well. Plan to booster based off results. 05/17/2025 Chronic sinusitis, unspecified (ICD-10 - J32.9) Recurrent sinus infections requiring abx multiple times a year meeting JMF criteria for modified PID work-up. Showing inadequate protection to S. pnumo and Hib. Previously advised obtianing boosters though did not obtain. - Last visit in 01/2025, treated with Augmentin x 10 days for sinusitis. Previously treated for sinusitis at our office in 05/2024, treated with Augmentin x 10 days. - Updated PIDD workup ordered after last visit, but patient did not obtain. Discussed imporatnce of obtaining labs and receiving vaccinations to improve her overall health and reduce needs for antibiotics. She verbalized understandingl, but stated she will consider obtaining vaccines. 08/29/2024 Essential (primary) hypertension (ICD-10 - I10) [...] like to hold off given recent bloating 05/17/2025 Essential (primary) hypertension (ICD-10 - I10) BP elevated today without symptoms of urgency or emergency. Continue serial checks and follow-up with PCP 01/18/2025 Essential (primary) hypertension (ICD-10 - I10) BP elevated today without symptoms of urgency or emergency. Continue serial checks and follow-up with PCP - Patient reports stopping JEREMIAH medication months ago, reports elevation today due to mother's recent passing 3 days ago. Instructed to monitor at-home and discuss with PCP. 03/08/2025 Other 12/07/2024 Other 01/18/2025 Other 10/10/2024 Other 12/21/2024 Other 08/29/2024 Other 11/09/2024 Other 05/10/2025 Other 05/17/2025 Other Plan Of Treatment Pending Test Test [...] IMMUNOGLOBULINS A/E/G/M,SERUM 01/18/2025 Next Appt Details Provider Name:Amy hernández, 06/14/2025 08:20:00 AM, [address] [facility], [address], [place], [address], Insurance Providers Payer Name Payer Address Payer Phone Subscriber Number Group Number Insured Name Patient Relationship to Insured Coverage Start Date Coverage End Date [employer] [address] [address] [place] [address] [id number] Angie Leos Self - patient is the insured 5 Medical (General) History Medical History History ICD Code Asthma Hypertension Sinusitis Osteoarthritis Surgical History Surgery Date(Month/Year) sinus surgery carpal tunnel release Ablation Hospitalization History Reason Date(Month/Year) asthma exacerbation
== END 2025-06-01 08:02 | disposition home or self-care (01) ==
LOC: ANHFOHIMG 08:04
PROVIDERS: PCP Nurse Practitioner Family; Visit Provider Obstetrics & Gynecology
DX: Z12.31 Encounter for screening mammogram for malignant neoplasm of breast (principal)
CPT/HCPCS: 77063; 77067